=== PATIENT | male | born 1960 | race Caucasian/White ===

== ENCOUNTER → 2020-03-28 13:33 | Outpatient (BNVA) | payer MEDICARE, MEDICAID, SELFPAY | PROVIDERS: PCP Nurse Practitioner Family; Visit Provider Internal Medicine | DX: I35.9 Nonrheumatic aortic valve disorder, unspecified (principal); I10 Essential (primary) hypertension; R00.2 Palpitations | CPT/HCPCS: 93005; 99202 ==

== ENCOUNTER 2020-04-04 12:45 | Outpatient (REF) | payer MEDICARE, MEDICAID, SELFPAY ==
--- NOTE | 2020-04-04 | US_ITS ---
EXAMINATION: US THYROID CLINICAL INFORMATION: Thyroid nodule. COMPARISON: Ultrasound soft tissue head/neck thyroid dated 02/22/2019. TECHNIQUE: Linear transducer riojas-scale and color Doppler examination with attention to the region of the thyroid. FINDINGS: SIZE: Measurements of the thyroid lobes and nodules are given in sagittal, anteroposterior and transverse dimensions respectively. Right Thyroid Lobe: 5.2 x 2.2 x 2.7 cm, volume 16.1 mL. Previously 5.0 x 2.9 x 2.7 cm, volume 20.5 mL. Parenchyma: The gland echotexture is homogeneous. Thyroid vascularity is normal. Left Thyroid Lobe: 4.5 x 2.4 x 1.7 cm, volume 9.4 mL. Previously 4.9 x 2.1 x 1.6 cm, volume 8.6 mL. Parenchyma: The gland echotexture is homogeneous. Thyroid vascularity is normal. Isthmus: 0.6 cm in maximum AP dimension. Previously 0.4 cm. RIGHT THYROID LOBE: No nodules. ISTHMUS: No nodules. LEFT THYROID LOBE: There is 1 nodule seen. 1. Location: Midpole. Size: 0.3 x 0.3 x 0.3 cm. Previous: 0.2 x 0.2 x 0.2 cm. Nodule characteristics: Hypoechoic with smooth margins and intranodular Doppler flow. NODES: No lymphadenopathy is seen in the tissue surrounding the thyroid gland. 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 No new nodules.
== END 2020-04-04 12:46 | disposition home or self-care (01) ==
LOC: HO.HMGCX 12:45
PROVIDERS: Visit Provider Internal Medicine
DX: E04.1 Nontoxic single thyroid nodule (principal)
CPT/HCPCS: 76536

== ENCOUNTER → 2020-04-23 08:01 | Outpatient (REF) | payer MEDICARE, MEDICAID, SELFPAY ==
--- NOTE | 2020-04-23 08:04 | CA_ITS ---
Transthoracic Echocardiogram Patient (Last, First, Middle): Jessica Amin, Gender: Male Date of : 1960 Age: 59 Procedure Date: 04/23/2020 Procedure Type: Transthoracic Echocardiogram Location: OP Height: 172.72 cm Weight: 83.01 kg BSA: 1.97 m2 Heart Rate: bpm BP: 110 / 60 mmHg Gate Cutter: DEANDRE Referring MD: Federico Bowles MD Symptoms: I35.9 - Nonrheumatic aortic valve disorder, unspecified Study Quality: Fair ECG Rhythm: Sinus Conclusions: - The left ventricular systolic function is normal. The visually estimated ejection fraction is between 60-65%. - There is mild calcification of the aortic valve. - There is mild mitral annular calcification. Findings Left Ventricle Normal left ventricular cavity size. There is normal left ventricular wall thickness. The left ventricular systolic function is normal. The visually estimated ejection fraction is between 60-65%. There is no evidence of regional wall motion abnormalities. Diastolic function is normal for age. Right Ventricle Normal right ventricular cavity size and systolic function. Atria The left atrium is normal in size. The right atrium is normal in size. Aortic Valve There is a normal trileaflet aortic valve. There is mild calcification of the aortic valve. There is no aortic valve stenosis. The mean gradient is 7 mmHg. There is trace (trivial) aortic valve regurgitation. Mitral Valve There is mild mitral annular calcification. There is trace mitral valve regurgitation. There is no mitral valve stenosis. Pulmonic Valve The pulmonic valve was not well visualized. Tricuspid Valve Normal tricuspid valve structure. There is trace tricuspid valve regurgitation. The pulmonary artery systolic pressure is normal. Great Vessels The aortic annulus, sinuses of valsalva, and asc aorta are normal in size. Venous The inferior vena cava is normal in size and collapses greater than 50% with inspiration. Pericardium/Pleural There is no evidence of pericardial effusion. Prior Study Comparison No significant change compared to prior study dated: 10/06/2017. Measurements 2D Linear Measurements IVSd: 0.99 0.6-0.9/0.6-1.0 cm LVIDd: 4.26 3.9-5.3/4.2-5.9 cm LVIDd Index: 2.16 2.4-3.2/2.2-3.1 cm/m2 LVIDs: 2.47 2.0-3.6 cm LVPWd: 0.93 0.7-1.1 cm Ao Root: 3.70 2.1-3.5 cm LA Diam: 2.80 2.7-3.8/3.0-4.0 cm LAIDs Index: 1.42 1.5-2.3 cm/m2 LV Mass: 164.47 67-162/88-224 g LV Mass Index: 83.49 43-95/49-115 g/m2 LVOT Diam: 2.10 3.0+(-)1.3 cm 2D Systolic Function EF 4C: 59.70 >55% EF 2C: 67.10 >55% EF BiP: 63.40 >55% Mitral Valve MV Pk E: 0.91 MV PK A: 1.13 MV Decel Time: 195.00 E/A: 0.80 E'Lateral: 11.70 E'Medial: 7.18 E/E' Med: 12.60 E/E' Lat: 7.70 PHT: 57.00 MVA PHT: 3.86 Decel Mercer: 4.65 Aortic Valve AoV Pk Armando: 1.85 AoV Mn Armando: 1.25 AoV VTI: 0.35 AoV Pk Grad: 14.00 Aov Mn Grad: 7.00 TEJ Cont.VTI: 1.94 LVOT LVOT Pk Armando: 1.05 LVOT Mn Armando: 0.68 LVOT VTI: 0.20 LVOT Pk Grad: 4.00 LVOT Mn Grad: 2.00 LVOT Diam: 2.10 LVOT Area: 3.46 Diastolic Function MV Pk E: 0.91 MV Pk A: 1.13 E/A: 0.80 E'Medial: 7.18 E/E' Med: 12.60 E' Laterial: 11.70 E/E' Lat: 7.70 Tricuspid Valve TR Pk Armando: 2.28 TR Pk Grad: 21.00 RA Press: 3.00 RVSP: 24.00 Great Vessels Aorta Ao Root-2D: 3.70 2.0-3.7 cm Ao Asc: 3.00 2.1-3.4 cm Ao Arch: 2.60 Updated in Other Vendor System with Status of Final Federico Bowles MD electronically signed on 04/23/2020 12:08:52 PM with status of Final
--- NOTE | 2020-04-23 08:04 | ECG_ITS ---
Hook-up date: 2020-04-23 09:19:00 Duration: 28:23:00 Test Indications: PALPITATIONS Medications: [id number] QRS complexes 85 Ventricular ectopics which represent <1 % of total QRS comp. 2 Supraventricular ectopics which represent <1 % of total QRS comp. * Paced QRS complexs which represent % of total QRS comp. VENTRICULAR ECTOPY 85 Isolated 0 Bigeminal Cycles 0 Couplets 0 Runs 0 Beats in Runs * Beats LONGEST at * BPM at :: -- * Beats FASTEST at * BPM at :: -- SUPRAVENTRICULAR ECTOPY 2 Isolated 0 Couplets 0 Runs 0 Beats in Runs * Beats LONGEST at * BPM at :: -- * Beats FASTEST at * BPM at :: -- HEART RATES 56 MIN at 15:23:31 2020-04-23 78 AVG 118 MAX at 08:41:13 2020-04-24 LONGEST RR 1.1680 secs at 05:34:03 2020-04-24 S-T LEVELS Channel 1 - 128 mm at 09:19:00 2020-04-23 - 128 mm at 09:19:00 2020-04-23 Channel 2 - 128 mm at 09:19:00 2020-04-23 - 128 mm at 09:19:00 2020-04-23 Channel 3 - 128 mm at 02:83:81 -- - 128 mm at 02:83:81 Basic rhythm Normal sinus rhythm No long pause or profound bradycardia Rare Premature ventricular complexes Patient did not report any symptoms in the diary Referred By: Federico Bowles Overread By: LUIGI CAT MD
== END ==
LOC: HO.CARD 08:01
PROVIDERS: Visit Provider Internal Medicine
DX: R00.2 Palpitations (principal); I35.9 Nonrheumatic aortic valve disorder, unspecified
CPT/HCPCS: 93225; 93226; 93306

== ENCOUNTER → 2020-05-06 13:26 | Outpatient (BNVA) | payer MEDICARE, MEDICAID, SELFPAY | PROVIDERS: Visit Provider Internal Medicine | DX: E04.2 Nontoxic multinodular goiter (principal); E55.9 Vitamin D deficiency, unspecified | CPT/HCPCS: 99212 ==

== ENCOUNTER → 2020-05-21 08:25 | Outpatient (BNVA) | payer MEDICARE, MEDICAID, SELFPAY | PROVIDERS: Visit Provider Internal Medicine | DX: I35.9 Nonrheumatic aortic valve disorder, unspecified (principal); I10 Essential (primary) hypertension; R00.2 Palpitations | CPT/HCPCS: 99212 ==

== ENCOUNTER → 2020-06-13 13:18 | Outpatient (BNVA) | payer MEDICARE, MEDICAID, SELFPAY | PROVIDERS: PCP Internal Medicine; Visit Provider Urology | DX: Z13.89 Encounter for screening for other disorder (principal) | CPT/HCPCS: 99212 ==

== ENCOUNTER 2020-10-15 12:45 | Outpatient (REF) | payer MEDICARE, MEDICAID, SELFPAY ==
--- NOTE | ~2020-10-15 | MR_ITS ---
EXAMINATION: MR KNEE WITHOUT CONTRAST, RIGHT CLINICAL INFORMATION: Chronic right knee pain for 12 years, worsening. Patient reports pain while weightbearing 3 months. COMPARISON: XR right knee 06/13/2019. TECHNIQUE: MRI of the knee without contrast was performed using routine sequences on a high-field scanner. The images are somewhat grainy in the etiology of this is uncertain. Per technologist notes, the coil connections were checked and the exam was restarted. FINDINGS: MENISCI: Medial Meniscus: Intact. Lateral Meniscus: Intact. LIGAMENTS: Cruciate: Intact. Collateral: Intact. EXTENSOR MECHANISM: Intact. ARTICULAR CARTILAGE/BONE: Patellofemoral Compartment: There is a focal area of partial thickness cartilage fissuring in the medial facet of the patella. The femoral trochlear cartilage appears intact. Medial Compartment: There is some patchy mild cartilage surface irregularity and thinning in the weightbearing medial compartment. Lateral Compartment: There is mild cartilage irregularity and thinning in the [id number] aspect of the lateral femoral condyle and in the posterior aspect of the lateral tibial plateau. JOINT FLUID AND BURSAE: Trace joint effusion with thin suprapatellar plica. No Camarillo's cyst. MR/MR knee RT wo con IMPRESSION: 1. Small focal area of mild arthrosis in the medial facet of the patella. 2. Mild arthrosis in the weightbearing medial and lateral compartments. 3. Trace joint effusion. 4. Intact menisci and ligaments.
== END 2020-10-15 12:46 | disposition home or self-care (01) ==
LOC: HO.MRI 12:45
PROVIDERS: Visit Provider Nurse Practitioner Family
DX: M25.561 Pain in right knee (principal); G89.29 Other chronic pain
CPT/HCPCS: 73721

== ENCOUNTER → 2020-11-26 13:35 | Outpatient (BNVA) | payer MEDICARE, MEDICAID, SELFPAY | PROVIDERS: PCP Internal Medicine; Referring Provider Nurse Practitioner; Visit Provider Nurse Practitioner Family | DX: R06.02 Shortness of breath (principal); R00.2 Palpitations; I10 Essential (primary) hypertension | CPT/HCPCS: 93005; 99212 ==

== ENCOUNTER 2020-11-27 07:31 | Outpatient (REF) | payer MEDICARE, MEDICAID, SELFPAY ==
--- NOTE | ~2020-11-27 | XR_ITS ---
EXAMINATION: KNEE X-RAY CLINICAL INFORMATION: Pain COMPARISON: Previous right knee x-ray May 2019 TECHNIQUE: Standing AP view of both knees and lateral and sunrise view of the right knee FINDINGS: Right: Bone alignment is normal. No fracture or dislocation is seen. Medial femoral tibial joint space narrowing. Joint spaces are otherwise normal. There is no joint effusion. Standing AP view of the left knee is unremarkable. XR/XR knee standing BI IMPRESSION: Right knee: Medial femoral tibial joint space narrowing.
--- NOTE | ~2020-11-27 | XR_ITS ---
EXAMINATION: KNEE X-RAY CLINICAL INFORMATION: Pain COMPARISON: Previous right knee x-ray May 2019 TECHNIQUE: Standing AP view of both knees and lateral and sunrise view of the right knee FINDINGS: Right: Bone alignment is normal. No fracture or dislocation is seen. Medial femoral tibial joint space narrowing. Joint spaces are otherwise normal. There is no joint effusion. Standing AP view of the left knee is unremarkable. XR/XR knee RT 2V IMPRESSION: Right knee: Medial femoral tibial joint space narrowing.
== END 2020-11-27 07:32 | disposition home or self-care (01) ==
LOC: HO.HOSX 07:31
PROVIDERS: PCP Nurse Practitioner; Visit Provider Physician Assistant
DX: M17.11 Unilateral primary osteoarthritis, right knee (principal); M25.562 Pain in left knee
CPT/HCPCS: 73560; 73565; 99202

== ENCOUNTER → 2020-12-05 08:22 | Outpatient (REF) | payer MEDICARE, MEDICAID, SELFPAY ==
--- NOTE | ~2020-12-05 | NM_ITS ---
EXERCISE MYOCARDIAL PERFUSION STUDY INDICATION: Shortness of breath, assess for coronary disease and ischemia TECHNIQUE: The patient was brought in for an exercise perfusion study on 12/05/2020. Patient performed exercise as per Ze protocol and was injected 30 mCi of sestamibi once target heart rate was achieved. Images were obtained using the SPECT gamma camera interlaced with the gating device. Images were obtained in supine position. Resting perfusion study was performed on 12/16/2020. Patient was administered 30 mCi of sestamibi intravenously at rest. Images were then obtained in supine position. Total DLP 98mGy-cm. Images were processed with the software and compared side to side in short axis, horizontal long axis and vertical long axis views. FINDINGS: Raw images were reviewed. The stress perfusion study showed mildly diminished tracer uptake in the basal inferior wall. There is improvement with CT attenuation correction and hence this could be from diaphragmatic attenuation artifact. There is also diminished uptake in the distal septum and adjacent apex that improves with CT attenuation correction. The gated study shows normal LV systolic function with calculated LVEF of 72%. LV cavity is normal in size. The gated study shows normal wall thickening and contraction of segments. Resting study shows no significant perfusion abnormality. Gating at rest reveals normal wall motion with ejection fraction at 62%. The findings are consistent with mild reversible basal inferior and distal septal defect most likely artifactual. NM/NM cardiolite stress test IMPRESSION: 1. Myocardial perfusion imaging study shows no definitive evidence of any ischemia or infarction. Likely normal perfusion. 2. Gated LVEF is 71% during stress and 62% during rest. 3. Transient ischemic dilatation not present. EKG component of the test reported separately.
--- NOTE | 2020-12-05 09:15 | CA_ITS ---
Acquisition Time: 2020-12-05 08:41:52 Total Exercise Time: 00:08:45 Test Indications: Dyspnea Medications: ASA ATORVASTATIN LISINOPRIL/HCTZ GABAPENTIN HYDROXIZINE OMEPRAZOLE METFORMIN Protocol: YUMIKO Max HR: 141 BPM 87% of Pred: 161 BPM Max BP: 140/080 mmHG Max Work Load: 10.1 METS Exercise stress test with exercise 8 min 45 sec of Yumiko protocol, with moderate shortness of breath, no chest discomfort, with isolated PVC, with normotensive response to exercise, without EKG changes meeting criteria for ischemia. Nuclear images pending. Test reviewed with Dr Bowles. Referred By: Patsy Elizabeth Overread By: PATSY ELIZABETH
== END ==
LOC: HO.CARD 08:22
PROVIDERS: Visit Provider Nurse Practitioner Family
DX: R06.02 Shortness of breath (principal)
CPT/HCPCS: 78452; 93017; A9500

== ENCOUNTER 2020-12-20 14:00 | Outpatient (RCR) | payer MEDICARE, MEDICAID, SELFPAY ==
[2020-12-05 15:23] VITALS: BP 140/90; PULSE 88; RESP 28
== END 2021-01-03 15:58 | disposition home or self-care (01) ==
LOC: HO.PTCHIC 14:00
PROVIDERS: PCP Nurse Practitioner; Visit Provider Nurse Practitioner Primary Care
DX: M25.561 Pain in right knee (principal)
CPT/HCPCS: 97110; 97150; 97161

== ENCOUNTER → 2020-12-31 12:59 | Outpatient (BNVA) | payer MEDICARE, MEDICAID, SELFPAY | PROVIDERS: PCP Nurse Practitioner; Referring Provider Nurse Practitioner; Visit Provider Nurse Practitioner Family | DX: R06.02 Shortness of breath (principal); R00.2 Palpitations; R53.83 Other fatigue; I10 Essential (primary) hypertension; I35.9 Nonrheumatic aortic valve disorder, unspecified; E11.9 Type 2 diabetes mellitus without complications; E78.5 Hyperlipidemia, unspecified; E04.2 Nontoxic multinodular goiter; Z88.6 Allergy status to analgesic agent; Z79.84 Long term (current) use of oral hypoglycemic drugs; Z79.899 Other long term (current) drug therapy | CPT/HCPCS: 99212 ==

== ENCOUNTER 2021-03-26 14:35 | Outpatient (REF) | payer MEDICARE, MEDICAID, SELFPAY | END 2021-03-26 14:36 | disposition home or self-care (01) | LOC: HO.HMGCLDS 14:35 | PROVIDERS: Visit Provider Internal Medicine | DX: Z20.822 Contact with and (suspected) exposure to COVID-19 (principal) | CPT/HCPCS: C9803; U0003; U0005 ==

== ENCOUNTER 2021-05-01 12:37 | Outpatient (REF) | payer MEDICARE, MEDICAID, SELFPAY ==
--- NOTE | ~2021-05-01 | US_ITS ---
EXAMINATION: US THYROID CLINICAL INFORMATION: Nontoxic multinodular goiter. COMPARISON: Ultrasound thyroid 04/04/2020 and 02/22/2019.. TECHNIQUE: Linear transducer grayscale and color Doppler examination with attention to the region of the thyroid. FINDINGS: SIZE: Measurements of the thyroid lobes and nodules are given in sagittal, anteroposterior and transverse dimensions respectively. Right Thyroid Lobe: 5.12 x 2.74 x 1.98 cm, volume 14.5 mL. Previously 5.2 x 2.2 x 2.7 cm, volume 16.1 mL. Parenchyma: The gland echotexture is homogeneous. Thyroid vascularity is normal. Left Thyroid Lobe: 4.69 x 3.01 x 1.48 cm, volume 10.9 mL. Previously 4.5 x 2.4 and 1.7 cm, volume 9.4 mL. Parenchyma: The gland echotexture is homogeneous. Thyroid vascularity is normal. Isthmus: 0.59 cm in maximum AP dimension. Previously 0.60 cm. Estimated total number of nodules greater than or equal to 1 cm: 0. Scenario Writer nodules are described as follows: 1. Location: Right mid. Size: 0.62 x 0.39 x 0.53 cm, volume 0.06 mL. Previously: Not seen on the previous study. Nodule characteristics: Composition: Mixed cystic and solid (1). Echogenicity: Isoechoic (1). Shape: Not taller than wide (0). Margins: Smooth (0). Echogenic Foci: None (0). ACR TI-RADS total points: 2 ACR TI-RADS category: 2 2. Location: Left mid. Size: 0.24-0 0.23 x 0.25 cm, volume 0.008 mL. Previously: 0.30 x 0.30 x 0.30 cm, volume 0.015 mL. Nodule characteristics: Composition: Cystic(0). ACR TI-RADS total points: 0 ACR TI-RADS category: 1 Significant change in size (>/= 20% in 2 dimensions and minimal increase of 2 mm or 50% or greater increase in volume): No NODES: No lymphadenopathy is seen in the tissue surrounding the thyroid gland. US/US thyroid IMPRESSION: Again demonstrated is an enlarged thyroid gland. 6 mm right TR 2 nodule and left 3 mm cystic TR 1 nodule require no follow-up imaging per ACR recommendations. ACR TI-RADS RECOMMENDATION REFERENCE: Ultrasound-guided fine-needle aspiration, followup ultrasound, no further follow up. * TR1 (0 point) and TR 2 (2 points): No FNA or follow up
== END 2021-05-01 12:38 | disposition home or self-care (01) ==
LOC: HO.HMGCX 12:37
PROVIDERS: Visit Provider Internal Medicine
DX: E04.2 Nontoxic multinodular goiter (principal)
CPT/HCPCS: 76536

== ENCOUNTER 2021-05-05 10:32 | Outpatient (REF) | payer MEDICARE, MEDICAID, SELFPAY ==
[2021-05-05 12:01] LABS: Free T4 (Free Thyroxine) 0.99 ng/dL (0.71-1.85); Thyroid Stimulating Hormone 1.76 uIU/mL (0.32-4.0); Vitamin D 25-OH Total 21.1 ng/mL (>30)
== END 2021-05-05 10:33 | disposition home or self-care (01) ==
LOC: HO.LAB 10:32
PROVIDERS: PCP Nurse Practitioner; Visit Provider Internal Medicine
DX: E04.2 Nontoxic multinodular goiter (principal); E55.9 Vitamin D deficiency, unspecified
CPT/HCPCS: 36415; 82306; 84439; 84443; 99212

== ENCOUNTER → 2021-06-17 13:40 | Outpatient (BNVA) | payer MEDICARE, MEDICAID, SELFPAY | PROVIDERS: PCP Nurse Practitioner; Visit Provider Urology | DX: E11.69 Type 2 diabetes mellitus with other specified complication (principal); N52.1 Erectile dysfunction due to diseases classified elsewhere | CPT/HCPCS: 99212 ==

== ENCOUNTER → 2021-12-18 13:41 | Outpatient (REF) | payer MEDICARE, MEDICAID, SELFPAY ==
--- NOTE | 2021-12-18 13:45 | CA_ITS ---
Transthoracic Echocardiogram Patient (Last, First, Middle): Jessica Amin, Gender: Male Date of : 1960 Age: 61 Procedure Date: 12/18/2021 Procedure Type: Transthoracic Echocardiogram Location: OP Height: 172.72 cm Weight: 84.37 kg BSA: 1.98 m2 Heart Rate: 73 bpm BP: 115 / 80 mmHg Drawing Kiln Operator: AARON Referring MD: Patsy Elizabeth PAINTER AND PAPERHANGER APPRENTICEMariluC Symptoms: I35.9 - Nonrheumatic aortic valve disorder, unspecified Study Quality: Fair ECG Rhythm: Sinus Conclusions: - The left ventricular systolic function is normal. The visually estimated ejection fraction is between 55-60%. - There is mildly decreased right ventricular systolic function. - There is mild aortic valve stenosis. Cannot exclude bicuspid morphology. Findings Left Ventricle Normal left ventricular cavity size. There is normal left ventricular wall thickness. The left ventricular systolic function is normal. The visually estimated ejection fraction is between 55-60%. There is no evidence of regional wall motion abnormalities. There is mild septal asymmetric hypertrophy. Right Ventricle Normal right ventricular cavity size. There is mildly decreased right ventricular systolic function. Atria Both atria are normal in size. Aortic Valve There is mild calcification of the aortic valve. There is mild aortic valve stenosis. There is no aortic valve regurgitation. Cannot exclude bicuspid morphology. Mitral Valve The mitral valve appears normal. There is no mitral valve regurgitation. There is no mitral valve stenosis. Pulmonic Valve The pulmonic valve is likely normal. Tricuspid Valve There is trace tricuspid valve regurgitation. There is no evidence of pulmonary hypertension. Great Vessels The aortic annulus, sinuses of valsalva, and asc aorta are normal in size. Venous The inferior vena cava is normal in size and collapses greater than 50% with inspiration. Pericardium/Pleural There is no evidence of pericardial effusion. Prior Study Comparison Changes noted compared to prior study dated: 04/23/2020. See comments on the aortic valve and right ventricle. Measurements 2D Linear Measurements IVSd: 1.23 0.6-0.9/0.6-1.0 cm LVIDd: 3.93 3.9-5.3/4.2-5.9 cm LVIDd Index: 1.98 2.4-3.2/2.2-3.1 cm/m2 LVIDs: 1.90 2.0-3.6 cm LVPWd: 0.96 0.7-1.1 cm LA Diam: 3.30 2.7-3.8/3.0-4.0 cm LAIDs Index: 1.67 1.5-2.3 cm/m2 LV Mass: 175.61 67-162/88-224 g LV Mass Index: 88.69 43-95/49-115 g/m2 LVOT Diam: 2.00 3.0+(-)1.3 cm 2D Systolic Function EF 4C: 57.80 >55% EF 2C: 49.20 >55% EF BiP: 51.60 >55% Mitral Valve MV Pk E: 0.59 MV PK A: 0.90 MV Decel Time: 181.00 E/A: 0.70 E'Lateral: 7.29 E'Medial: 4.90 E/E' Med: 12.00 E/E' Lat: 8.10 PHT: 53.00 MVA PHT: 4.15 Decel Platte: 3.24 Aortic Valve AoV Pk Armando: 1.82 AoV Mn Armando: 1.46 AoV VTI: 0.37 AoV Pk Grad: 13.00 Aov Mn Grad: 10.00 TEJ Cont.VTI: 1.60 LVOT LVOT Pk Armando: 0.96 LVOT Mn Armando: 0.69 LVOT VTI: 0.19 LVOT Pk Grad: 4.00 LVOT Mn Grad: 2.00 LVOT Diam: 2.00 LVOT Area: 3.14 Diastolic Function MV Pk E: 0.59 MV Pk A: 0.90 E/A: 0.70 E'Medial: 4.90 E/E' Med: 12.00 E' Laterial: 7.29 E/E' Lat: 8.10 Right Ventricle TAPSE (mm): 13.90 TVS' Armando: 6.20 Tricuspid Valve RA Press: 3.00 Great Vessels Aorta Sinus of Valsalva: 3.60 2.0-3.5 cm Ao Asc: 3.00 2.1-3.4 cm Pulmonary Valve PV Pk Armando: 0.77 Peak PV Grad: 2.00 Updated in Other Vendor System with Status of Final Federico Bowles MD electronically signed on 12/19/2021 9:51:14 AM with status of Final
== END ==
LOC: HO.CARD 13:41
PROVIDERS: PCP Nurse Practitioner; Visit Provider Nurse Practitioner Family
DX: I35.9 Nonrheumatic aortic valve disorder, unspecified (principal)
CPT/HCPCS: 93306

== ENCOUNTER → 2021-12-25 14:18 | Outpatient (BNVA) | payer MEDICARE, MEDICAID, SELFPAY | PROVIDERS: PCP Nurse Practitioner; Referring Provider Nurse Practitioner; Visit Provider Nurse Practitioner Family | DX: I35.0 Nonrheumatic aortic (valve) stenosis (principal); R06.02 Shortness of breath; R00.2 Palpitations; I10 Essential (primary) hypertension | CPT/HCPCS: 93005; 99212 ==

== ENCOUNTER 2022-04-15 13:05 | Outpatient (REF) | payer MEDICARE, MEDICAID, SELFPAY ==
--- NOTE | ~2022-04-15 | US_ITS ---
EXAMINATION: US THYROID CLINICAL INFORMATION: Nontoxic multinodular goiter. COMPARISON: Ultrasound thyroid 05/01/2021 and 04/04/2020. TECHNIQUE: Linear transducer grayscale and color Doppler examination with attention to the region of the thyroid. FINDINGS: SIZE: Measurements of the thyroid lobes and nodules are given in sagittal, anteroposterior and transverse dimensions respectively. Right Thyroid Lobe: 5.2 x 2.5 x 2.9 cm, volume 19.7 mL. Previously 5.1 x 2.7 x 2.0 cm, volume 14.5 mL. Parenchyma: The gland echotexture is homogeneous. Thyroid vascularity is normal. Left Thyroid Lobe: 4.7 x 1.8 x 1.6 cm, volume 7.1 mL. Previously 4.7 x 3.0 x 1.5 cm, volume 10.9 mL. Parenchyma: The gland echotexture is homogeneous. Thyroid vascularity is normal. Isthmus: 0.47 cm in maximum AP dimension. Previously 0.60 cm. Estimated total number of nodules greater than or equal to 1 cm: 0. [employer] nodules are described as follows: 1. Location: Right mid inferior. Size: 0.66 x 0.37 x 0.57 cm, volume 0.07 mL. Previously: 0.62 x 0.39 x 0.53 cm, volume 0.06 mL. Nodule characteristics: Composition: Spongiform (0). Echogenicity: Anechoic (0). Shape: Not taller than wide (0). Margins: Smooth (0). Echogenic Foci: None (0). ACR TI-RADS total points: 0 Previous: 0 ACR TI-RADS category: 1 Previous: 1 2. Location: Left mid. Size: 0.31 x 0.33 x 0.21 cm, volume 0.01 mL. Previously: 0.24 x 0.23 x 0.25 cm, volume 0.008 mL. Nodule characteristics: Composition: Cystic(0). ACR TI-RADS total points: 0 Previous: 0 ACR TI-RADS category: 1 Previous: 1 NODES: No lymphadenopathy is seen in the tissue surrounding the thyroid gland. US/US thyroid IMPRESSION: Bilateral nodules do not meet ACR criteria for follow-up.. ACR TI-RADS RECOMMENDATION REFERENCE: Ultrasound-guided fine-needle aspiration, followup ultrasound, no further follow up. * TR1 (0 point) and TR 2 (2 points): No FNA or follow up. * TR3 (3 points): FNA if more than or equal to 2.5 cm in maximum dimension, followup ultrasound in 1, 3 and 5 years if 1.5 to 2.4 cm in maximum dimension. * TR4 (4-6 points): FNA if more than or equal to 1.5 cm in maximum dimension, followup ultrasound in 1, 2, 3 and 5 years if 1 to 1.4 cm in maximum dimension. * TR5 (more than or equal to 7 points): FNA if more than or equal to 1 cm in maximum dimension, followup ultrasound every year for 5 years if 0.5 to 0.9 cm in maximum dimension. * TR3, TR4 or TR5 nodules that are below the size threshold for followup receive no follow up.
== END 2022-04-15 13:06 | disposition home or self-care (01) ==
LOC: HO.US 13:05
PROVIDERS: Visit Provider Internal Medicine
DX: Z13.89 Encounter for screening for other disorder (principal)
CPT/HCPCS: 76536

== ENCOUNTER 2022-04-15 22:14 | Emergency (ER) | payer MEDICARE, MEDICAID, SELFPAY ==
--- NOTE | ~2022-04-15 | CT_ITS ---
EXAMINATION: CT ABDOMEN AND PELVIS WITH CONTRAST CLINICAL INFORMATION: Upper abdominal pain. COMPARISON: None TECHNIQUE: Multidetector volumetric images were obtained from the superior aspect of the liver through the pubic symphysis following administration 85 mL of Omnipaque 350 intravenous contrast. Sagittal and coronal reformatted images were obtained on the technologist's workstation. Oral contrast: No This CT examination was performed using dose optimization techniques as appropriate, variously including the following: *Automated exposure control *Adjustment of mA and/or kV according to patient size (this includes techniques or standardized protocols for targeted exams where dose is matched to indication/reason for exam; i.e. extremities or head) *Use of iterative reconstruction technique DLP: 477 mGy-cm FINDINGS: LUNG BASES: The visualized lung bases are unremarkable. LIVER, GALLBLADDER, AND BILIARY TREE: The liver is normal in size, shape, and attenuation. No focal hepatic lesion or biliary ductal dilatation is present. The gallbladder is unremarkable with no evidence of radiopaque gallstones, gallbladder wall thickening, or obvious pericholecystic inflammatory changes. PANCREAS: Unremarkable. SPLEEN: Unremarkable. ADRENAL GLANDS: Unremarkable. KIDNEYS AND URETERS: The kidneys are normal in size, shape, and attenuation. No hydronephrosis, hydroureter, or calculi seen. No perinephric stranding. BLADDER: Unremarkable. GASTROINTESTINAL TRACT: The stomach is unremarkable. Normal caliber small bowel. No obstruction. There is wall thickening of a short segment of small bowel in the central pelvis. Mild adjacent inflammation. Normal appendix. No colonic wall thickening or inflammation. Moderate colonic stool burden. Scattered diverticulosis which is greatest at the sigmoid colon. No free air or free fluid. ABDOMINAL WALL: No significant hernia is appreciated. LYMPH NODES: Normal. VASCULAR: Unremarkable. PELVIC VISCERA: The prostate and seminal vesicles are unremarkable. OSSEOUS STRUCTURES: No acute or suspicious osseous abnormality. Degenerative change at L5-S1 with vacuum disc phenomenon. CT/CT abdomen pelvis w IV con IMPRESSION: Wall thickening of a short segment of small bowel in the central pelvis with mild adjacent inflammation, suggestive of enteritis. Fleischner guidelines were followed.
[2022-04-15 22:17] VITALS: BP 141/92; PULSE 91; RESP 18; TEMP 36.7; O2SAT 94; BMI 25.8
[2022-04-15 22:33] LABS: Basophils Absolute Auto 0.1 X10*3/uL (0.0-0.2); Basophils Percent Auto 0.6 % (0-2); Eosinophils Absolute Auto 2.3 X10*3/uL (0.0-0.4); Eosinophils Percent Auto 26.3 % (0-4); Hematocrit 50.4 % (42.0-52.0); Hemoglobin 17.1 g/dl (14.0-18.0); Imm Gran Abs Auto 0.01 X10*3/uL (0.00-0.03); Imm Gran Pct Auto 0.1 % (0.0-0.4); Lymphocytes Absolute Auto 1.8 X10*3/uL (1.2-4.9); Lymphocytes Percent Auto 20.2 % (20-40); MANUAL DIFF FLAG SCAN; Mean Corpuscular HGB Conc 33.9 g/dl (31.0-36.0); Mean Corpuscular Volume 82.6 fL (80.0-98.0); Mean Platelet Volume 9.2 fL (9.4-12.4); Monocytes Absolute Auto 0.5 X10*3/uL (0.1-1.2); Monocytes Percent Auto 5.6 % (2-11); Neutrophils Absolute Auto 4.1 x10*3/uL (2.0-8.3); Neutrophils Percent Auto 47.2 % (45-73); Platelet Count 218 X10*3/uL (160-400); Red Cell Distribution Width 12.4 % (11.0-16.0); SCAN SMEAR FLAG 1; White Blood Count 8.8 X10*3/uL (4.8-10.8)
[2022-04-15 22:40] LABS: Appearance Urine Clear; Color Urine Yellow; Glucose Urine UA >=1000 mg/dL (Negative); Leukocyte Esterase Urine Negative (Negative); Nitrite Urine Negative (Negative); PH 5.5 (5.0-9.0); Specific Gravity - Urine >= 1.030 (1.005-1.025); UMIC TRIGGER UACC YES; Urine Blood Negative (Negative); Urine Ketones Negative (Negative); Urine Protein Negative (Neg-Trace)
[2022-04-15 22:44] LABS: Bacteria Urine None Seen (None Seen); Hyaline Casts Urine 0-2 /LPF (0-2); RBC Urine 0-2 /HPF (0-2); Squamous Epithelial Cell Urine 0-2 /HPF (0-2); WBC Urine 0-5 /HPF (0-5)
[2022-04-15 22:49] VITALS: BP 123/76; PULSE 82; RESP 16; TEMP 36.8; O2SAT 96
[2022-04-15 22:51] LABS: Alanine Aminotransferase 30 U/L (0-40); Albumin Level 4.4 g/dL (3.5-5.0); Alkaline Phosphatase 125 U/L (39-117); Anion Gap 14 (12-20); Aspartate Amino Transferase 16 U/L (5-37); Bilirubin Direct < 0.2 mg/dL (0.0-0.5); Bilirubin Total 0.4 mg/dL (0.0-1.0); Blood Urea Nitrogen 28 mg/dL (9-16); Calcium 9.4 mg/dL (8.4-10.2); Carbon Dioxide 25 mmol/L (22-29); Chloride 102 mmol/L (96-108); Creatinine Clr Calc Pharmacy 78.3; Estimated Glomerular Filt Rate > 60; Glucose Random 157 mg/dL (60-115); Sodium 137 mmol/L (135-145); Total Protein 7.5 g/dL (6.5-8.0)
[2022-04-15 22:52] LABS: SLIDE REVIEW VERIFIED
--- NOTE | 2022-04-15 22:55 | PC.NURSE ---
Assessment: Pt's V/S are stable, ptspouse is at bedside. Pt has upper abd pain 9/10 x 3 days and it worsen when eating. Pt denies constipation, diarrhea, N/V. ABd is soft and tender, bowel sound throughout the 4 the quadrants.
--- NOTE | 2022-04-15 22:59 | ED_ITS ---
HPI - Abdominal Pain General Chief Complaint: Abdominal Pain Stated Complaint: abdominal pain Time Seen by Provider: 04/15/22 22:58 Source: patient Mode of arrival: ambulatory Limitations: no limitations History of Present Illness HPI narrative: Physical complaining of diffuse abdominal pain for last 1 week today got worse today after meals had normal bowel movement yesterday no nausea or vomiting no fever or chills. No urinary complaints no history of kidney stone Related Data Home Medications Medication Instructions Recorded Confirmed aspirin 81 mg tablet,delayed 81 mg PO DAILY 03/28/20 12/25/21 release (Adult Low Dose Aspirin) cetirizine 10 mg tablet 10 mg PO DAILY 03/28/20 12/25/21 fluoxetine 40 mg capsule 40 mg PO DAILY 03/28/20 12/25/21 hydroxyzine HCl 10 mg tablet 10 mg PO BEDTIME 03/28/20 12/25/21 omeprazole 40 mg capsule,delayed 40 mg PO DAILY 03/28/20 12/25/21 release sumatriptan succinate 50 mg tablet 50 mg PO DAILY PRN 03/28/20 12/25/21 blood sugar diagnostic #10 ea 05/06/20 12/25/21 gabapentin 600 mg tablet 600 mg PO DAILY 05/06/20 12/25/21 metformin 500 mg tablet 500 mg PO BID 05/06/20 12/25/21 clonazepam 1 mg tablet 1 mg PO BEDTIME PRN 06/17/21 12/25/21 empagliflozin 25 mg tablet 25 mg PO QAM 06/17/21 12/25/21 (Jardiance) ipratropium bromide 21 mcg (0.03 intranasal 06/17/21 12/25/21 %) nasal spray lisinopril 10 mg tablet 10 mg PO DAILY 06/17/21 12/25/21 tamsulosin 0.4 mg capsule 0.4 mg PO DAILY 06/17/21 12/25/21 atorvastatin 40 mg tablet 40 mg PO DAILY 12/25/21 12/25/21 Previous Rx's Medication Instructions Recorded sildenafil 100 mg tablet 100 mg PO .PRN PRN sexual activity 06/13/20 30 days #30 tabs cholecalciferol (vitamin D3) 50 50 mcg PO DAILY 30 days #30 caps 05/05/21 mcg (2,000 unit) capsule tadalafil 20 mg tablet 20 mg PO .PRN sexual activity 30 06/17/21 days #30 tabs sucralfate 1 gram tablet 1 g PO TID #90 tabs 04/16/22 Allergies Allergy/AdvReac Type Severity Reaction Status Date / Time codeine [CODEINE] Allergy Unknown TACHYCARDIA Verified 12/25/21 14:59 codeine AdvReac Unknown anaphylaxis Uncoded 05/05/21 11:32 Review of Systems Review of Systems Yes all other systems are reviewed and are negative [facility] Past Medical History Medical History Aortic valve calcification Erectile dysfunction Essential hypertension Multinodular thyroid Other and unspecified hyperlipidemia Type 2 diabetes mellitus with unspecified complications Vitamin D deficiency Family History Family History Father Stroke Brother Stroke Mother Diabetes Social History Social History Smoked in Last 30 Days: No Use of substances other than those prescribed or required for medical reasons: No Advance Directives: No Advance Directives Information Provided: No Physical Exam ED Vital Signs: Vital Signs - 24 hr 04/15/22 22:17 04/15/22 22:49 04/16/22 00:00 Temperature 98.1 F 98.2 F 98.9 F Pulse Rate 91 82 86 Respiratory Rate 18 16 16 Blood Pressure 141/92 H 123/76 136/84 Pulse Oximetry 94 96 98 Oxygen Delivery Method Room Air Room Air Room Air BMI result Body Mass Index 25.8 Appearance: Alert. Oriented X3. No acute distress. Eyes: PERRLA, No Nystagmus ENT: Pharynx normal. Oral Mucosa moist Neck: Normal inspection. Neck supple. CVS: Normal heart rate and rhythm. Pulses normal. Respiratory: No respiratory distress. Equal air entry bilateral, no wheezing/rales/rhonchi Abdomen: Soft and nontender. Bowel sounds are present, no mass palpable, no CVA tenderness Skin: Skin warm and dry. Normal skin color. Normal skin turgor. Extremities: No lower extremity edema. No calf tenderness Neuro: Oriented X 3. No motor deficit. No sensory deficit.No cerebellar signs , cranial nerves II-XII intact Medical Decision Making Lab Data 04/15/22 22:28 04/15/22 22:28 Labs: Lab Results 04/15/22 04/15/22 04/15/22 Range/Units 22:28 22:28 22:33 WBC 8.8 (4.8-10.8) X10*3/uL RBC 6.10 H (4.60-5.80) X10*6/uL Hgb 17.1 (14.0-18.0) g/dl Hct 50.4 (42.0-52.0) % MCV 82.6 (80.0-98.0) fL MCH 28.0 (27.0-33.0) pg MCHC 33.9 (31.0-36.0) g/dl RDW 12.4 (11.0-16.0) % Plt Count 218 (160-400) X10*3/uL MPV 9.2 L (9.4-12.4) fL Immature Gran % (Auto) 0.1 (0.0-0.4) % Neut % (Auto) 47.2 (45-73) % Lymph % (Auto) 20.2 (20-40) % [place] % (Auto) 5.6 (2-11) % Eos % (Auto) 26.3 H (0-4) % Baso % (Auto) 0.6 (0-2) % Lymph # (Auto) 1.8 (1.2-4.9) X10*3/uL [place] # (Auto) 0.5 (0.1-1.2) X10*3/uL Eos # (Auto) 2.3 H (0.0-0.4) X10*3/uL Baso # (Auto) 0.1 (0.0-0.2) X10*3/uL Abs Immat Gran (auto) 0.01 (0.00-0.03) X10*3/uL Absolute Neuts (auto) 4.1 (2.0-8.3) x10*3/uL Absolute Nucleated RBC 0.000 (0.0-0.012) X10*3/uL Nucleated RBC % (auto) 0.0 (0.0-0.2) /100WBC Smear Tech's Comments VERIFIED Sodium 137 (135-145) mmol/L Potassium 4.0 (3.3-5.1) mmol/L Chloride 102 (96-108) mmol/L Carbon Dioxide 25 (22-29) mmol/L Anion Gap 14 (12-20) BUN 28 H (9-16) mg/dL Creatinine 0.97 (0.5-1.4) mg/dL Estim Creat Clear Calc 78.3 Estimated GFR > 60 Random Glucose 157 H (60-115) mg/dL Calcium 9.4 (8.4-10.2) mg/dL Total Bilirubin 0.4 (0.0-1.0) mg/dL Direct Bilirubin < 0.2 (0.0-0.5) mg/dL AST 16 (5-37) U/L ALT 30 (0-40) U/L Alkaline Phosphatase 125 H (39-117) U/L Total Protein 7.5 (6.5-8.0) g/dL Albumin 4.4 (3.5-5.0) g/dL Lipase 37 (8-78) U/L Urine Color Yellow Urine Appearance Clear Urine pH 5.5 (5.0-9.0) Ur Specific [place] >= 1.030 H (1.005-1.025) Urine Protein Negative (Neg-Trace) mg/dL Urine Glucose (UA) >=1000 H (Negative) mg/dL Urine Ketones Negative (Negative) mg/dL Urine Blood Negative (Negative) Urine Nitrite Negative (Negative) Ur Leukocyte Esterase Negative (Negative) Urine RBC 0-2 (0-2) /HPF Urine WBC 0-5 (0-5) /HPF Ur Squamous Epith Cells 0-2 (0-2) /HPF Urine Bacteria None Seen (None Seen) Hyaline Casts 0-2 (0-2) /LPF Medications Administered Discontinued Medications Generic Name Dose Route Start Last Admin Trade Name Freq PRN Reason Stop Dose Admin Famotidine 20 mg 04/15/22 23:04 04/15/22 23:14 Famotidine/Pf 20 Mg/2 Ml Vial IVPUSH 04/15/22 23:05 20 mg ONCE ONE Administration Iohexol 85 ml 04/16/22 00:17 04/16/22 00:18 Iohexol 350 Mg/Ml 100 Ml Infus..Btl IV 04/16/22 00:18 85 ml ONCE ONE Administration Discharge Plan Discharge Clinical Impression: Enteritis, Gastritis Patient Disposition: Home, Self-Care Instructions: Gastritis (ED), Enteritis (ED) Additional Instructions: Drink plenty of fluids Medication as prescribed Avoid fried food Follow-up with PCP/diagnostic assistant Continue Prilosec daily Sucralfate 1 tablet 3 times a day before meals Prescriptions: New sucralfate 1 gram tablet 1 g PO TID Qty: 90 0RF No Action cholecalciferol (vitamin D3) 50 mcg (2,000 unit) capsule 50 mcg PO DAILY 30 Days Qty: 30 11RF sildenafil 100 mg tablet 100 mg PO .PRN PRN (Reason: sexual activity) 30 Days Qty: 30 1RF Rx Instructions: administer 60 minutes before intended activity cetirizine 10 mg tablet 10 mg PO DAILY omeprazole 40 mg capsule,delayed release(DR/EC) 40 mg PO DAILY fluoxetine 40 mg capsule 40 mg PO DAILY hydroxyzine HCl 10 mg tablet 10 mg PO BEDTIME sumatriptan succinate 50 mg tablet 50 mg PO DAILY PRN aspirin [Adult Low Dose Aspirin] 81 mg tablet,delayed release (DR/EC) 81 mg PO DAILY gabapentin 600 mg tablet 600 mg PO DAILY metformin 500 mg tablet 500 mg PO BID clonazepam 1 mg tablet 1 mg PO BEDTIME PRN ipratropium bromide 21 mcg (0.03 %) spray,non-aerosol intranasal Jardiance 25 mg tablet 25 mg PO QAM tamsulosin 0.4 mg capsule 0.4 mg PO DAILY lisinopril 10 mg tablet 10 mg PO DAILY tadalafil 20 mg tablet 20 mg PO .PRN 30 Days Qty: 30 1RF (DME) FreeStyle Lite Strips Strip See Rx Instructions Not Applicable DAILY Qty: 10 Rx Instructions: As directed atorvastatin 40 mg tablet 40 mg PO DAILY Referrals: Veronica Rodriguez MD [Physician] - 2 weeks Interventions: ED Discharge Assessment Last Done: 04/16/22 01:22 Discharge Date/Time: 04/16/22 01:23
[2022-04-15] MEDS: Famotidine/PF 20 MG/2 ML VIAL IVPUSH (23:14)
[2022-04-15 23:23] LABS: Lipase 37 U/L (8-78)
[2022-04-16] VITALS: BP 136/84; PULSE 86; RESP 16; TEMP 37.2; O2SAT 98
[2022-04-16] MEDS: iohexoL 350 MG/ML 100 ML INFUS..BTL 85 ML IV (00:18)
== END 2022-04-16 01:23 | disposition home or self-care (01) ==
PROVIDERS: Emergency Provider Internal Medicine; PCP Nurse Practitioner
DX: K52.9 Noninfective gastroenteritis and colitis, unspecified (principal); K29.70 Gastritis, unspecified, without bleeding; E11.9 Type 2 diabetes mellitus without complications; I10 Essential (primary) hypertension; E78.5 Hyperlipidemia, unspecified; Z79.82 Long term (current) use of aspirin; Z79.84 Long term (current) use of oral hypoglycemic drugs; Z79.899 Other long term (current) drug therapy; Z79.02 Long term (current) use of antithrombotics/antiplatelets
CPT/HCPCS: 36415; 74177; 76536; 80053; 81001; 82248; 83690; 85025; 96374; 99284; Q9967

== ENCOUNTER 2022-04-16 21:18 | Emergency (ER) | payer MEDICARE, MEDICAID, SELFPAY ==
[2022-04-16 21:19] VITALS: BP 138/91; PULSE 81; RESP 18; TEMP 36.1; O2SAT 96; BMI 26.3
--- NOTE | 2022-04-16 21:56 | ECG_ITS ---
Test Reason : ABDOMINAL PAIN Blood Pressure : / mmHG Vent. Rate : 071 BPM Atrial Rate : 071 BPM P-R Int : 174 ms QRS Dur : 088 ms QT Int : 360 ms P-R-T Axes : 018 -21 009 degrees QTc Int : 391 ms Normal sinus rhythm Normal ECG When compared with ECG of 13-JUN-2019 17:40, No significant change was found Referred By: Manny Raza Electronically Signed By:LUIGI CAT MD
--- NOTE | 2022-04-16 22:02 | ED.GENADULT ---
HPI - General Adult General Chief complaint: Abdominal Pain Stated complaint: Abdominal Pain Time Seen by Provider: 04/16/22 21:51 Source: patient Limitations: no limitations History of Present Illness HPI narrative: this is a 61-year-old male who complains of pain in his mid abdomen for a few days. The patient was seen last night here for the same issue and had a CT scan and labs, states they did not find anything. The patient was prescribed sucralfate but states that it does not help the pain. Patient notes he does have a ventral hernia. The patient denies any chest pain or shortness of breath. He denies nausea or vomiting. He denies constipation or diarrhea. Denies any back pain. He denies any dysuria or urinary frequency. He does have history of hypertension, diabetes, hypercholesterolemia. Related Data Home Medications Medication Instructions Recorded Confirmed aspirin 81 mg tablet,delayed 81 mg PO DAILY 03/28/20 12/25/21 release (Adult Low Dose Aspirin) cetirizine 10 mg tablet 10 mg PO DAILY 03/28/20 12/25/21 fluoxetine 40 mg capsule 40 mg PO DAILY 03/28/20 12/25/21 hydroxyzine HCl 10 mg tablet 10 mg PO BEDTIME 03/28/20 12/25/21 omeprazole 40 mg capsule,delayed 40 mg PO DAILY 03/28/20 12/25/21 release sumatriptan succinate 50 mg tablet 50 mg PO DAILY PRN 03/28/20 12/25/21 blood sugar diagnostic #10 ea 05/06/20 12/25/21 gabapentin 600 mg tablet 600 mg PO DAILY 05/06/20 12/25/21 metformin 500 mg tablet 500 mg PO BID 05/06/20 12/25/21 clonazepam 1 mg tablet 1 mg PO BEDTIME PRN 06/17/21 12/25/21 empagliflozin 25 mg tablet 25 mg PO QAM 06/17/21 12/25/21 (Jardiance) ipratropium bromide 21 mcg (0.03 intranasal 06/17/21 12/25/21 %) nasal spray lisinopril 10 mg tablet 10 mg PO DAILY 06/17/21 12/25/21 tamsulosin 0.4 mg capsule 0.4 mg PO DAILY 06/17/21 12/25/21 atorvastatin 40 mg tablet 40 mg PO DAILY 12/25/21 12/25/21 Previous Rx's Medication Instructions Recorded sildenafil 100 mg tablet 100 mg PO .PRN PRN sexual activity 06/13/20 30 days #30 tabs cholecalciferol (vitamin D3) 50 50 mcg PO DAILY 30 days #30 caps 05/05/21 mcg (2,000 unit) capsule tadalafil 20 mg tablet 20 mg PO .PRN sexual activity 30 06/17/21 days #30 tabs sucralfate 1 gram tablet 1 g PO TID #90 tabs 04/16/22 oxycodone-acetaminophen 7.5 mg-325 1 tab PO Q6H PRN pain #8 tabs 04/17/22 mg tablet (Percocet) Allergies Allergy/AdvReac Type Severity Reaction Status Date / Time codeine [CODEINE] Allergy Unknown TACHYCARDIA Verified 12/25/21 14:59 codeine AdvReac Unknown anaphylaxis Uncoded 05/05/21 11:32 Review of Systems Review of Systems: As per HPI [facility] Past Medical History Medical History Aortic valve calcification Erectile dysfunction Essential hypertension Multinodular thyroid Other and unspecified hyperlipidemia Type 2 diabetes mellitus with unspecified complications Vitamin D deficiency Family History Family History Father Stroke Brother Stroke Mother Diabetes Social History Social History Advance Directives: No Advance Directives Information Provided: No Physical Exam ED Vital Signs: Vital Signs - 24 hr 04/16/22 21:19 04/16/22 22:17 04/16/22 23:37 Temperature 96.9 F 98.3 F Pulse Rate 81 72 Respiratory Rate 18 18 14 Blood Pressure 138/91 H 123/85 Pulse Oximetry 96 98 Oxygen Delivery Method Room Air Room Air BMI result Body Mass Index 26.3 Const General: no acute distress Orientation/consciousness: patient oriented x3 HENMT Head: Yes normal to inspection General nose exam: Normal external nose present Mouth: moist mucous membranes Throat: Yes posterior oropharynx normal, Yes tonsils normal and Yes uvula midline Eyes Eyelids: Yes eyelids normal Conjunctivae: conjunctivae normal Pupils: Equal, round and reactive pupils present Neck Neck: Yes supple Resp Effort & Inspection: normal respiratory effort Auscultation: clear to auscultation bilaterally Cardio Rate: regular rate Rhythm: regular rhythm Heart sounds: S1 normal heart sound present, S2 normal heart sound present, no gallops, no murmurs and no rubs GI Inspection: No distended Palpation (GI): Soft to palpation and Tenderness to palpation present (GI) ( mildly tender hypogastric in the midline, no masses comparable, no hernia) Auscultation: normal bowel sounds Skin General skin exam: other (Warm and dry) Neuro General: patient oriented x3 and CN's II-XI intact bilaterally Cranial nerves: Yes Equal, round and reactive pupils present Extrem General: Yes no pedal edema Psych Affect: normal affect Attitude: cooperative Medications Administered Discontinued Medications Generic Name Dose Route Start Last Admin Trade Name Magdyq PRN Reason Stop Dose Admin Al Hydroxide/Mg Hydroxide 30 ml 04/16/22 23:31 04/16/22 23:37 Magnesium Hydrox/Alum Hydrox 30 Ml Oral.Susp PO 04/16/22 23:32 30 ml ONCE ONE Administration Hydromorphone HCl 1 mg 04/16/22 23:31 04/16/22 23:37 Hydromorphone Hcl 1 Mg/Ml Syringe IM 04/16/22 23:32 1 mg ONCE ONE Administration Protocol Lidocaine HCl 15 ml 04/16/22 23:31 04/16/22 23:37 Lidocaine Hcl Viscous 2 % 15 Ml Solution PO 04/16/22 23:32 15 ml ONCE ONE Administration Lorazepam 1 mg 04/16/22 21:56 04/16/22 22:06 Lorazepam 1 Mg Tablet PO 04/16/22 21:57 1 mg ONCE ONE Administration Tramadol HCl 100 mg 04/16/22 21:56 04/16/22 22:06 Tramadol Hcl 50 Mg Tablet PO 04/16/22 21:57 100 mg ONCE ONE Administration Medical Decision Making Medical Decision Making MDM Narrative: Patient with persistent mid abdominal pain, not radiating to his back, despite sucralfate and omeprazole. Patient had had a full workup including CT scan yesterday. Patient had received COVID vaccination today. Pain likely unrelated to this since the pain began before the vaccination. Patient was given lorazepam and tramadol here in the ED without relief of pain. Patient was then given Maalox, lidocaine, as well as Dilaudid IM, and did have relief of his pain. CBC, EKG, troponin, chemistry, all unremarkable. Patient is safe for outpatient follow-up. Pain of unclear etiology. Will prescribe 2 days worth of Percocet Differential Diagnosis Differential Diagnoses: The differential diagnosis associated with the presentation includes Admission/Observation Consideration of admission/observation: Escalation of care including admission/observation considered Lab Data MDM Lab Attestation statement: I reviewed the patient's lab results. 04/16/22 22:10 04/16/22 22:10 Labs: Lab Results 04/16/22 04/16/22 04/16/22 Range/Units 22:10 22:10 22:10 WBC 10.7 (4.8-10.8) X10*3/uL RBC 6.16 H (4.60-5.80) X10*6/uL Hgb 17.3 (14.0-18.0) g/dl Hct 50.5 (42.0-52.0) % MCV 82.0 (80.0-98.0) fL MCH 28.1 (27.0-33.0) pg MCHC 34.3 (31.0-36.0) g/dl RDW 12.3 (11.0-16.0) % Plt Count 218 (160-400) X10*3/uL MPV 9.4 (9.4-12.4) fL Immature Gran % (Auto) 0.4 (0.0-0.4) % Neut % (Auto) 57.4 (45-73) % Lymph % (Auto) 16.3 L (20-40) % [place] % (Auto) 5.7 (2-11) % Eos % (Auto) 19.7 H (0-4) % Baso % (Auto) 0.5 (0-2) % Lymph # (Auto) 1.7 (1.2-4.9) X10*3/uL [place] # (Auto) 0.6 (0.1-1.2) X10*3/uL Eos # (Auto) 2.1 H (0.0-0.4) X10*3/uL Baso # (Auto) 0.1 (0.0-0.2) X10*3/uL Abs Immat Gran (auto) 0.04 H (0.00-0.03) X10*3/uL Absolute Neuts (auto) 6.2 (2.0-8.3) x10*3/uL Absolute Nucleated RBC 0.000 (0.0-0.012) X10*3/uL Nucleated RBC % (auto) 0.0 (0.0-0.2) /100WBC Smear Tech's Comments VERIFIED Sodium 135 (135-145) mmol/L Potassium 4.4 (3.3-5.1) mmol/L Chloride 99 (96-108) mmol/L Carbon Dioxide 29 (22-29) mmol/L Anion Gap 11 L (12-20) BUN 25 H (9-16) mg/dL Creatinine 0.96 (0.5-1.4) mg/dL Estim Creat Clear Calc 79.1 Estimated GFR > 60 Random Glucose 109 (60-115) mg/dL Calcium 9.1 (8.4-10.2) mg/dL Total Bilirubin 0.5 (0.0-1.0) mg/dL AST 16 (5-37) U/L ALT 26 (0-40) U/L Alkaline Phosphatase 115 (39-117) U/L Troponin I High Sens < 3.5 (<3.5-35.0) ng/L Total Protein 7.1 (6.5-8.0) g/dL Albumin 4.2 (3.5-5.0) g/dL Lipase 28 (8-78) U/L Independent Interpretation I performed an independent interpretation of an: EKG ( sinus rhythm with a rate of 71. No concerning ST elevation or depression. Normal QRS axis. No ectopy.) External Record Review External record reviewed: Other prior ED record Tests considered The following testing was considered but not selected: repeat abdominal CT Prescription Management I considered prescription management with: Pain Medication Chronic Conditions Patient?s care impacted by: Diabetes and Hypertension Discharge Plan Discharge Clinical Impression: Abdominal pain Patient Disposition: Home, Self-Care Instructions: Abdominal Pain (ED) Additional Instructions: Follow-up with your primary care physician. Return for any new or worsened symptoms. Continue the sucralfate, and make sure to take your omeprazole. Use the Percocet as prescribed sparingly for uncontrolled pain for the next few days. Prescriptions: New oxycodone-acetaminophen [Percocet] 7.5-325 mg tablet 1 tab PO Q6H PRN (Reason: pain) Qty: 8 0RF Rx Instructions: Partial Fill upon patient request. No Action cholecalciferol (vitamin D3) 50 mcg (2,000 unit) capsule 50 mcg PO DAILY 30 Days Qty: 30 11RF sucralfate 1 gram tablet 1 g PO TID Qty: 90 0RF sildenafil 100 mg tablet 100 mg PO .PRN PRN (Reason: sexual activity) 30 Days Qty: 30 1RF Rx Instructions: administer 60 minutes before intended activity cetirizine 10 mg tablet 10 mg PO DAILY omeprazole 40 mg capsule,delayed release(DR/EC) 40 mg PO DAILY fluoxetine 40 mg capsule 40 mg PO DAILY hydroxyzine HCl 10 mg tablet 10 mg PO BEDTIME sumatriptan succinate 50 mg tablet 50 mg PO DAILY PRN aspirin [Adult Low Dose Aspirin] 81 mg tablet,delayed release (DR/EC) 81 mg PO DAILY gabapentin 600 mg tablet 600 mg PO DAILY metformin 500 mg tablet 500 mg PO BID clonazepam 1 mg tablet 1 mg PO BEDTIME PRN ipratropium bromide 21 mcg (0.03 %) spray,non-aerosol intranasal Jardiance 25 mg tablet 25 mg PO QAM tamsulosin 0.4 mg capsule 0.4 mg PO DAILY lisinopril 10 mg tablet 10 mg PO DAILY tadalafil 20 mg tablet 20 mg PO .PRN 30 Days Qty: 30 1RF (DME) FreeStyle Lite Strips Strip See Rx Instructions Not Applicable DAILY Qty: 10 Rx Instructions: As directed atorvastatin 40 mg tablet 40 mg PO DAILY
[2022-04-16] MEDS: LORazepam 1 MG TABLET PO (22:06)
[2022-04-16] MEDS: traMADoL HCL 50 MG TABLET 100 MG PO (22:06)
[2022-04-16 22:17] VITALS: BP 123/85; PULSE 72; RESP 18; TEMP 36.8; O2SAT 98
[2022-04-16 22:30] LABS: Alanine Aminotransferase 26 U/L (0-40); Albumin Level 4.2 g/dL (3.5-5.0); Alkaline Phosphatase 115 U/L (39-117); Anion Gap 11 (12-20); Aspartate Amino Transferase 16 U/L (5-37); Bilirubin Total 0.5 mg/dL (0.0-1.0); Blood Urea Nitrogen 25 mg/dL (9-16); Calcium 9.1 mg/dL (8.4-10.2); Carbon Dioxide 29 mmol/L (22-29); Chloride 99 mmol/L (96-108); Creatinine Clr Calc Pharmacy 79.1; Estimated Glomerular Filt Rate > 60; Glucose Random 109 mg/dL (60-115); Lipase 28 U/L (8-78); Potassium 4.4 mmol/L (3.3-5.1); Sodium 135 mmol/L (135-145); Total Protein 7.1 g/dL (6.5-8.0)
[2022-04-16 22:34] LABS: Basophils Absolute Auto 0.1 X10*3/uL (0.0-0.2); Basophils Percent Auto 0.5 % (0-2); Eosinophils Absolute Auto 2.1 X10*3/uL (0.0-0.4); Eosinophils Percent Auto 19.7 % (0-4); Hematocrit 50.5 % (42.0-52.0); Hemoglobin 17.3 g/dl (14.0-18.0); Imm Gran Abs Auto 0.04 X10*3/uL (0.00-0.03); Imm Gran Pct Auto 0.4 % (0.0-0.4); Lymphocytes Absolute Auto 1.7 X10*3/uL (1.2-4.9); Lymphocytes Percent Auto 16.3 % (20-40); MANUAL DIFF FLAG SCAN; Mean Corpuscular HGB Conc 34.3 g/dl (31.0-36.0); Mean Corpuscular Hemoglobin 28.1 pg (27.0-33.0); Mean Platelet Volume 9.4 fL (9.4-12.4); Monocytes Absolute Auto 0.6 X10*3/uL (0.1-1.2); Monocytes Percent Auto 5.7 % (2-11); Neutrophils Absolute Auto 6.2 x10*3/uL (2.0-8.3); Neutrophils Percent Auto 57.4 % (45-73); Platelet Count 218 X10*3/uL (160-400); Red Blood Count 6.16 X10*6/uL (4.60-5.80); Red Cell Distribution Width 12.3 % (11.0-16.0); SCAN SMEAR FLAG 1; White Blood Count 10.7 X10*3/uL (4.8-10.8)
[2022-04-16 22:37] LABS: Troponin-I High Sensitivity < 3.5 ng/L (<3.5-35.0)
[2022-04-16 22:56] LABS: SLIDE REVIEW VERIFIED
[2022-04-16 23:37] VITALS: RESP 14
[2022-04-16] MEDS: Magnesium Hydrox/Alum Hydrox 30 ML ORAL.SUSP PO (23:37)
[2022-04-16] MEDS: Lidocaine HCl Viscous 2 % 15 ML SOLUTION PO (23:37)
[2022-04-16] MEDS: HYDROmorphone HCl 1 MG/ML SYRINGE IM (23:37)
[2022-04-17 00:49] VITALS: BP 110/84; PULSE 83; RESP 16; TEMP 36.9; O2SAT 96
== END 2022-04-17 00:55 | disposition home or self-care (01) ==
PROVIDERS: Emergency Provider Emergency Medicine
DX: R10.9 Unspecified abdominal pain (principal); Z79.899 Other long term (current) drug therapy
CPT/HCPCS: 36415; 80053; 83690; 84484; 85025; 93005; 96372; 99284; J1170

== ENCOUNTER 2022-04-28 13:09 | Outpatient (REF) | payer MEDICARE, MEDICAID, SELFPAY ==
[2022-04-28 14:44] LABS: Free T4 (Free Thyroxine) 0.94 ng/dL (0.71-1.85); Thyroid Stimulating Hormone 2.02 uIU/mL (0.32-4.0); Vitamin D 25-OH Total 24.7 ng/mL (>30)
== END 2022-04-28 13:10 | disposition home or self-care (01) ==
LOC: HO.HMGCLDS 13:09
PROVIDERS: PCP Internal Medicine; Visit Provider Internal Medicine
DX: E04.2 Nontoxic multinodular goiter (principal); E55.9 Vitamin D deficiency, unspecified
CPT/HCPCS: 36415; 82306; 84439; 84443

== ENCOUNTER → 2022-04-29 12:32 | Outpatient (BNVA) | payer MEDICARE, MEDICAID, SELFPAY | PROVIDERS: Visit Provider Internal Medicine | DX: K21.9 Gastro-esophageal reflux disease without esophagitis (principal); R10.9 Unspecified abdominal pain; Z86.010 Personal history of colon polyps | CPT/HCPCS: 99202 ==

== ENCOUNTER → 2022-05-04 14:41 | Outpatient (BNVA) | payer MEDICARE, MEDICAID, SELFPAY | PROVIDERS: Visit Provider Internal Medicine | DX: E04.2 Nontoxic multinodular goiter (principal) | CPT/HCPCS: 99212 ==

== ENCOUNTER 2022-07-13 12:42 | Emergency (ER) | payer MEDICARE, MEDICAID, SELFPAY ==
--- NOTE | ~2022-07-13 | XR_ITS ---
EXAMINATION: XR LUMBOSACRAL SPINE CLINICAL INFORMATION: Back pain COMPARISON: CT abdomen pelvis 04/15/2022 TECHNIQUE: Three views of the lumbosacral spine. FINDINGS: Disc height narrowing and vacuum disc changes with vertebral endplate spurring at L5-S1. Remainder of lumbar disc heights are normal. Mild degenerative change of facet joints at the lumbosacral junction. Vertebrae have normal height and alignment. No spondylolysis or spondylolisthesis. Sacroiliac joints are normal. XR/XR lumbar spine 2-3V IMPRESSION: 1. No acute abnormality. 2. Degenerative spondylosis of L5-S1.
[2022-07-13 12:53] VITALS: BP 143/91; PULSE 74; RESP 18; TEMP 36.7; O2SAT 99; BMI 28.8
--- NOTE | 2022-07-13 12:55 | ED_ITS ---
HPI - Back Pain/Injury General Chief Complaint: Back Pain/Injury Stated Complaint: Lower back pain Related Data Home Medications Medication Instructions Recorded Confirmed fluoxetine 40 mg capsule 40 mg PO DAILY 03/28/20 05/04/22 hydroxyzine HCl 10 mg tablet 10 mg PO BEDTIME 03/28/20 05/04/22 sumatriptan succinate 50 mg tablet 50 mg PO DAILY PRN 03/28/20 05/04/22 blood sugar diagnostic #10 ea 05/06/20 05/04/22 gabapentin 600 mg tablet 600 mg PO DAILY 05/06/20 05/04/22 metformin 500 mg tablet 500 mg PO BID 05/06/20 05/04/22 clonazepam 1 mg tablet 1 mg PO BEDTIME PRN 06/17/21 05/04/22 empagliflozin 25 mg tablet 25 mg PO QAM 06/17/21 05/04/22 (Jardiance) ipratropium bromide 21 mcg (0.03 intranasal 06/17/21 05/04/22 %) nasal spray lisinopril 10 mg tablet 10 mg PO DAILY 06/17/21 05/04/22 tamsulosin 0.4 mg capsule 0.4 mg PO DAILY 06/17/21 05/04/22 atorvastatin 40 mg tablet 40 mg PO DAILY 12/25/21 05/04/22 cetirizine 10 mg tablet 10 mg PO DAILY PRN allergy symptoms 05/04/22 05/04/22 Previous Rx's Medication Instructions Recorded sildenafil 100 mg tablet 100 mg PO .PRN PRN sexual activity 06/13/20 30 days #30 tabs tadalafil 20 mg tablet 20 mg PO .PRN sexual activity 30 06/17/21 days #30 tabs sucralfate 1 gram tablet 1 g PO TID #90 tabs 04/16/22 omeprazole 40 mg capsule,delayed 40 mg PO DAILY #30 caps 04/29/22 release cholecalciferol (vitamin D3) 50 50 mcg PO DAILY 30 days #30 caps 05/04/22 mcg (2,000 unit) capsule Allergies Allergy/AdvReac Type Severity Reaction Status Date / Time codeine [CODEINE] Allergy Unknown TACHYCARDIA Verified 05/04/22 15:11 codeine AdvReac Unknown anaphylaxis Uncoded 05/04/22 15:11 [facility] Past Medical History Medical History Aortic valve calcification Erectile dysfunction Essential hypertension Multinodular thyroid Other and unspecified hyperlipidemia Type 2 diabetes mellitus with unspecified complications Vitamin D deficiency Surgical History H/O colonoscopy History of esophagogastroduodenoscopy (EGD) Family History Family History Father Stroke Brother Stroke Mother Diabetes Social History Social History Alcohol intake: former Patient Tobacco Use Status: Former Tobacco user Course Course Course Narrative: RME - 61yo male presenting for lumbar back pain radiating to both legs following yard work a few days ago. Denies urinary symptoms. Endorses increased pain with movement. VSS in triage Plan: Full exam and treatment of pain in [facility] Discharge Plan Discharge Prescriptions: No Action sucralfate 1 gram tablet 1 g PO TID Qty: 90 0RF sildenafil 100 mg tablet 100 mg PO .PRN PRN (Reason: sexual activity) 30 Days Qty: 30 1RF Rx Instructions: administer 60 minutes before intended activity fluoxetine 40 mg capsule 40 mg PO DAILY hydroxyzine HCl 10 mg tablet 10 mg PO BEDTIME sumatriptan succinate 50 mg tablet 50 mg PO DAILY PRN gabapentin 600 mg tablet 600 mg PO DAILY metformin 500 mg tablet 500 mg PO BID cetirizine 10 mg tablet 10 mg PO DAILY PRN (Reason: allergy symptoms) clonazepam 1 mg tablet 1 mg PO BEDTIME PRN ipratropium bromide 21 mcg (0.03 %) spray,non-aerosol intranasal Jardiance 25 mg tablet 25 mg PO QAM tamsulosin 0.4 mg capsule 0.4 mg PO DAILY lisinopril 10 mg tablet 10 mg PO DAILY tadalafil 20 mg tablet 20 mg PO .PRN 30 Days Qty: 30 1RF (DME) FreeStyle Lite Strips Strip See Rx Instructions Not Applicable DAILY Qty: 10 Rx Instructions: As directed omeprazole 40 mg capsule,delayed release(DR/EC) 40 mg PO DAILY Qty: 30 0RF atorvastatin 40 mg tablet 40 mg PO DAILY cholecalciferol (vitamin D3) 50 mcg (2,000 unit) capsule 50 mcg PO DAILY 30 Days Qty: 30 11RF
[2022-07-13] MEDS: Ketorolac Tromethamine 30 MG/ML VIAL IM (13:34)
[2022-07-13 15:08] VITALS: BP 115/75; PULSE 65; RESP 14; O2SAT 95
--- NOTE | 2022-07-13 15:26 | ED.GENADULT ---
HPI - General Adult General Chief complaint: Back Pain/Injury Stated complaint: Lower back pain Time Seen by Provider: 07/13/22 13:35 Source: patient Mode of arrival: ambulatory Limitations: no limitations History of Present Illness HPI narrative: 61 yold male presents to the ED for back pain that is worse on movement. patient states back pain after bending and moving back awkardly while trimming the grass. patient denies falling to the ground, blunt trauma, abdominal pain, nausea, vomitting, fever, chills, flank pain, dysuria, hematuria, or any other concerning symptoms. patient denies any urinary/bowel incontinence Related Data Home Medications Medication Instructions Recorded Confirmed fluoxetine 40 mg capsule 40 mg PO DAILY 03/28/20 05/04/22 hydroxyzine HCl 10 mg tablet 10 mg PO BEDTIME 03/28/20 05/04/22 sumatriptan succinate 50 mg tablet 50 mg PO DAILY PRN 03/28/20 05/04/22 blood sugar diagnostic #10 ea 05/06/20 05/04/22 gabapentin 600 mg tablet 600 mg PO DAILY 05/06/20 05/04/22 metformin 500 mg tablet 500 mg PO BID 05/06/20 05/04/22 clonazepam 1 mg tablet 1 mg PO BEDTIME PRN 06/17/21 05/04/22 empagliflozin 25 mg tablet 25 mg PO QAM 06/17/21 05/04/22 (Jardiance) ipratropium bromide 21 mcg (0.03 intranasal 06/17/21 05/04/22 %) nasal spray lisinopril 10 mg tablet 10 mg PO DAILY 06/17/21 05/04/22 tamsulosin 0.4 mg capsule 0.4 mg PO DAILY 06/17/21 05/04/22 atorvastatin 40 mg tablet 40 mg PO DAILY 12/25/21 05/04/22 cetirizine 10 mg tablet 10 mg PO DAILY PRN allergy symptoms 05/04/22 05/04/22 Previous Rx's Medication Instructions Recorded sildenafil 100 mg tablet 100 mg PO .PRN PRN sexual activity 06/13/20 30 days #30 tabs tadalafil 20 mg tablet 20 mg PO .PRN sexual activity 30 06/17/21 days #30 tabs sucralfate 1 gram tablet 1 g PO TID #90 tabs 04/16/22 omeprazole 40 mg capsule,delayed 40 mg PO DAILY #30 caps 04/29/22 release cholecalciferol (vitamin D3) 50 50 mcg PO DAILY 30 days #30 caps 05/04/22 mcg (2,000 unit) capsule cyclobenzaprine 10 mg tablet 10 mg PO TID PRN muscle spasm 5 07/13/22 days #15 tabs ketorolac 10 mg tablet 10 mg PO Q6H PRN pain 5 days #20 07/13/22 tabs prednisone 20 mg tablet 40 mg PO DAILY 5 days #10 tabs 07/13/22 Allergies Allergy/AdvReac Type Severity Reaction Status Date / Time codeine [CODEINE] Allergy Unknown TACHYCARDIA Verified 05/04/22 15:11 codeine AdvReac Unknown anaphylaxis Uncoded 05/04/22 15:11 Review of Systems Review of Systems: Lower back pain Yes all other systems are reviewed and are negative [facility] Past Medical History Medical History Aortic valve calcification Erectile dysfunction Essential hypertension Multinodular thyroid Other and unspecified hyperlipidemia Type 2 diabetes mellitus with unspecified complications Vitamin D deficiency Surgical History H/O colonoscopy History of esophagogastroduodenoscopy (EGD) Family History Family History Father Stroke Brother Stroke Mother Diabetes Social History Social History Alcohol intake: former Patient Tobacco Use Status: Former Tobacco user Advance Directives: No Advance Directives Information Provided: Yes Physical Exam ED Vital Signs: Vital Signs - 24 hr 07/13/22 12:53 07/13/22 15:08 Temperature 98.0 F Pulse Rate 74 65 Respiratory Rate 18 14 Blood Pressure 143/91 H 115/75 Pulse Oximetry 99 95 Oxygen Delivery Method Room Air Room Air BMI result Body Mass Index 28.8 Const General: cooperative, healthy appearing, comfortable, no acute distress, well developed, alert, awake and Physically active Orientation/consciousness: oriented to person, oriented to place, oriented to time and patient oriented x3 HENMT Head: Yes normal to inspection, Yes No palpable skull fracture present, Yes normocephalic and Yes atraumatic Eyes General: appearance normal, both eyes and all related structures Neck Neck: Yes normal visual inspection, Yes full ROM, Yes no lymphadenopathy, Yes no meningeal signs, Yes trachea midline, Yes supple, No anterior neck swelling and No tender Chest Chest palpation & inspection: normal inspection of the chest and normal palpation of entire chest wall Resp Effort & Inspection: normal respiratory effort and able to speak in complete sentences Auscultation: clear to auscultation bilaterally Cardio Jugular venous distension: no JVD Heart sounds: S1 normal heart sound present and S2 normal heart sound present GI Inspection: Yes normal to inspection and No abdominal wall ecchymosis Palpation (GI): Soft to palpation, not firm, nontender, no guarding and not rigid General: No CVA tenderness and Yes no CVA tenderness Back/Spine/Pelvis Back: no CVA tenderness, No CVA tenderness and back tenderness (lumbar) Skin General skin exam: no rashes or lesions noted, elasticity normal and turgor normal Neuro General: oriented to person, oriented to place, oriented to time, patient oriented x3, gait normal, moves all extremities, Normal light touch and pain sensation, no meningeal signs, no focal motor deficits, CN's II-XI intact bilaterally and normal sensation to monofilament Extrem General: Yes normal to inspection, Yes full ROM and Yes capillary refill normal Psych Appearance: grossly normal, well kempt and not disheveled Course Course Course Narrative: Patient sent from lumbar spine x-ray. Reevaluation(s) Reevaluation #1: Lumbar spine x-ray negative for fracture. Most likely patient has strain back. Not suspecting epidural abscess, cauda equinus syndrome, osteomyelitis. Not suspecting kidney stones or UTI. Time: 15:32 Medications Administered Discontinued Medications Generic Name Dose Route Start Last Admin Trade Name Freq PRN Reason Stop Dose Admin Ketorolac Tromethamine 30 mg 07/13/22 12:57 07/13/22 13:34 Ketorolac Tromethamine 30 Mg/Ml Vial IM 07/13/22 12:58 30 mg ONCE ONE Administration Medical Decision Making Medical Decision Making [facility] Narrative: 61 yold male presents to the ED for lower back pain worse on movement after trimming grass. Lumbar spine x-ray normal. Patient given Toradol. Not suspecting epidural abscess, cauda equinus syndrome, osteomyelitis, kidney stones, UTI, fracture. Differential Diagnosis Differential Diagnoses: The differential diagnosis associated with the presentation includes (Epidural abscess, osteomyelitis, cauda equinus syndrome, kidney stones, UTI, fracture.) Admission/Observation Consideration of admission/observation: Escalation of care including admission/observation considered Independent Interpretation I performed an independent interpretation of an: Plain X-Ray Radiology Impression Discussion of test interpretation with radiology: I have reviewed the radiologist's reading. Prescription Management I considered prescription management with: Pain Medication Discharge Plan Discharge Clinical Impression: Lumbar radiculopathy Patient Disposition: Home, Self-Care Instructions: Lumbar Radiculopathy (ED) Additional Instructions: Regrese al servicio de urgencias inmediatamente si empeora el dolor de espalda, la incontinencia urinaria o intestinal, el dolor abdominal, las n?useas, los v?mitos, la disuria, la hematuria, el dolor en el costado, la fiebre, los escalofr?os o cualquier otro s?ntoma preocupante. Por favor, brittany un seguimiento con el proveedor de atenci?n primaria. Prescriptions: New prednisone 20 mg tablet 40 mg PO DAILY 5 Days Qty: 10 0RF ketorolac 10 mg tablet 10 mg PO Q6H PRN (Reason: pain) 5 Days Qty: 20 0RF Rx Instructions: Received toradol 30mg IM cyclobenzaprine 10 mg tablet 10 mg PO TID PRN (Reason: muscle spasm) 5 Days Qty: 15 0RF Rx Instructions: Side effect is drowsiness. Do not take at work or while driving. No Action sucralfate 1 gram tablet 1 g PO TID Qty: 90 0RF sildenafil 100 mg tablet 100 mg PO .PRN PRN (Reason: sexual activity) 30 Days Qty: 30 1RF Rx Instructions: administer 60 minutes before intended activity fluoxetine 40 mg capsule 40 mg PO DAILY hydroxyzine HCl 10 mg tablet 10 mg PO BEDTIME sumatriptan succinate 50 mg tablet 50 mg PO DAILY PRN gabapentin 600 mg tablet 600 mg PO DAILY metformin 500 mg tablet 500 mg PO BID cetirizine 10 mg tablet 10 mg PO DAILY PRN (Reason: allergy symptoms) clonazepam 1 mg tablet 1 mg PO BEDTIME PRN ipratropium bromide 21 mcg (0.03 %) spray,non-aerosol intranasal Jardiance 25 mg tablet 25 mg PO QAM tamsulosin 0.4 mg capsule 0.4 mg PO DAILY lisinopril 10 mg tablet 10 mg PO DAILY tadalafil 20 mg tablet 20 mg PO .PRN 30 Days Qty: 30 1RF (DME) FreeStyle Lite Strips Strip See Rx Instructions Not Applicable DAILY Qty: 10 Rx Instructions: As directed omeprazole 40 mg capsule,delayed release(DR/EC) 40 mg PO DAILY Qty: 30 0RF atorvastatin 40 mg tablet 40 mg PO DAILY cholecalciferol (vitamin D3) 50 mcg (2,000 unit) capsule 50 mcg PO DAILY 30 Days Qty: 30 11RF Stand Alone Forms: Work/School Release Interventions: ED Discharge Assessment Last Done: 07/13/22 15:58 Discharge Date/Time: 07/13/22 16:01 Print Language: Slovenian
== END 2022-07-13 16:01 | disposition home or self-care (01) ==
PROVIDERS: Emergency Provider Emergency Medicine
DX: M54.16 Radiculopathy, lumbar region (principal); M54.50 Low back pain, unspecified; E11.9 Type 2 diabetes mellitus without complications; I10 Essential (primary) hypertension; E78.5 Hyperlipidemia, unspecified; Z79.84 Long term (current) use of oral hypoglycemic drugs; Z79.899 Other long term (current) drug therapy; Z79.02 Long term (current) use of antithrombotics/antiplatelets; Z87.891 Personal history of nicotine dependence
CPT/HCPCS: 72100; 96372; 99284; J1885

== ENCOUNTER 2022-07-28 11:10 | Outpatient (REF) | payer MEDICARE, MEDICAID, SELFPAY | END 2022-07-28 11:11 | disposition home or self-care (01) | LOC: HO.HMGCLDS 11:10 | PROVIDERS: Visit Provider Urology | DX: Z12.5 Encounter for screening for malignant neoplasm of prostate (principal); E11.69 Type 2 diabetes mellitus with other specified complication; N52.1 Erectile dysfunction due to diseases classified elsewhere | CPT/HCPCS: 36415; 84153 ==

== ENCOUNTER 2022-08-11 17:23 | Observation (INO) | payer MEDICARE, MEDICAID, SELFPAY ==
--- NOTE | ~2022-08-11 | MR_ITS ---
EXAMINATION: MRI OF THE BRAIN WITHOUT CONTRAST CLINICAL INFORMATION: Right facial droop. COMPARISON: CTA of the head and neck 08/11/2022. CT scan of the head 12/15/2018. TECHNIQUE: MRI of the brain was obtained using routine sequences without contrast. FINDINGS: No diffusion abnormalities are identified to suggest an acute or subacute infarct. No mass effect or midline shift is seen. There is mild commensurate prominence of the ventricles and sulci consistent with diffuse volume loss. There are a few scattered foci of hyperintense T2 and FLAIR signal in the periventricular and subcortical white matter, most consistent with mild chronic microvascular ischemic changes. No extra-axial fluid collections are seen. The brainstem and cerebellum are normal. No pathologic magnetic susceptibility artifact is identified on the gradient refocused acquisition. The craniovertebral junction and midline structures are normal. Overall, marrow signal is homogenous. The major intracranial flow-voids at the level of the [place] are preserved. The dural venous sinus flow-voids are maintained. The mastoid air cells are well-aerated. There is minimal mucoperiosteal thickening in the bilateral ethmoid sinuses. MR/MR head/brain wo con IMPRESSION: 1. There are no acute bleeds or territorial infarcts. No masses are demonstrated. 2. There are chronic microvascular ischemic changes and there is diffuse volume loss.
--- NOTE | ~2022-08-11 | CT_ITS ---
EXAMINATION: CT ANGIOGRAM HEAD CT ANGIOGRAM NECK CLINICAL INFORMATION: right facial droop COMPARISON: Same day head CT TECHNIQUE: Initial noncontrast boarding mother imaging of the head and neck was performed. Comparison is made with noncontrast head CT from earlier today. Test bolus sequences followed by intravenous administration 70 mL of Omnipaque 350. Helical imaging was performed in the axial plane from the aortic arch to the skull vertex. Delayed postcontrast imaging of the head was also performed. The data was processed at the electrical engineering technologist's workstation for generation of MIP sequences. Angled MIPs and volume rendered reformatted images were also generated at an offline 3D workstation. Stenoses are assessed in accordance with Henry et al. Quantification of Carotid Stenosis on CT Angiography. AJR 2006. 27(1):13-19. [address] CT examination was performed using dose optimization techniques as appropriate, variously including the following: *Automated exposure control *Adjustment of mA and/or kV according to patient size (this includes techniques or standardized protocols for targeted exams where dose is matched to indication/reason for exam; i.e. extremities or head) *Use of iterative reconstruction technique DLP: 1442.06 mGy-cm FINDINGS: CT HEAD: Noncontrast head CT findings are discussed separately. 4 mm differential hypoenhancement within the posterior left paramedian pituitary gland may reflect a pituitary microadenoma and can be further evaluated with sellar protocol contrast-enhanced MRI and correlated with pituitary function tests. No pathologic intra-axial enhancement within limitations of CT or regional oligemia. CTA HEAD: Venous contamination compromises diagnostic assessment. Multifocal calcific plaque along the carotid siphons contributing to mild bilateral supraclinoid stenosis. 2 mm left posterior communicating artery infundibular origin versus aneurysm. The MCA vascular complexes are normal bilaterally. The SHANIQUA complexes are normal bilaterally. The intradural vertebral arteries are patent. The basilar artery is normal. The posterior cerebral arteries are widely patent. No proximal large vessel occlusion. No high flow vascular malformations. No evidence of dural arteriovenous fistula. Timing of the contrast bolus allows assessment of the major dural venous sinuses, which all opacify normally CTA NECK: Suboptimal contrast bolus timing compromises diagnostic assessment. Four vessel branching pattern with left vertebral artery arising directly from the arch between the left common carotid and left subclavian arteries. Origins of the great vessels are widely patent. The common carotid arteries are widely patent. The carotid bifurcations and bilateral internal carotid arteries are patent with focal tortuosity of the distal left cervical segment. The vertebral arteries are codominant The vertebral artery ostia are widely patent. Both vertebral arteries are widely patent throughout their extracranial cervical course. CT NECK: Trace mucosal disease within the left maxillary sinus alveolar recess. Incidental boutonniere deformities of the mylohyoid muscles with partially herniated left sublingual gland into the left mandibular space. Elongated and ossified styloid processes can be correlated for signs of Koi syndrome. Bilateral palatine tonsilloliths. Right facial subcutaneous nodule abutting the dermis may reflect sebaceous cyst and can be correlated with direct inspection. The visualized lung apices and upper mediastinum are within normal limits. Diffuse osteopenia and multilevel cervical spondylosis. CT/CT angio head neck IMPRESSION: 1. 4 mm differential hypoenhancement within the posterior left paramedian pituitary gland may reflect a pituitary microadenoma and can be further evaluated with sellar protocol contrast-enhanced MRI and correlated with pituitary function tests. 2. No acute arterial occlusion or hemodynamically significant stenosis within the head or neck. 3. 2 mm left posterior communicating artery infundibular origin versus aneurysm. 4. Elongated and ossified styloid processes can be correlated for signs of Koi syndrome.
--- NOTE | ~2022-08-11 | CT_ITS ---
EXAMINATION: CT HEAD WITHOUT CONTRAST CLINICAL INFORMATION: Right-sided facial droop since 9:00 AM COMPARISON: 12/15/2018 TECHNIQUE: Contiguous axial imaging was performed from the skull base to vertex without intravenous contrast. This CT examination was performed using dose optimization techniques as appropriate, variously including the following: * Automated exposure control * Adjustment of mA and/or kV according to patient size (this includes techniques or standardized protocols for targeted exams where dose is matched to indication/reason for exam; i.e. extremities or head) Use of iterative reconstruction technique DLP: 644 mGy-cm. FINDINGS: There is no evidence of acute intracranial hemorrhage or territorial infarction. No abnormal mass effect or midline shift is seen. Singh to white matter differentiation is well preserved. No extra-axial fluid collections are identified. No hydrocephalus. No significant volume loss. There is no abnormal attenuation within the brain parenchyma. The osseous structures and soft tissues are normal. The mastoid air cells and visualized portions of the paranasal sinuses are well aerated. CT/CT head/brain wo IV con IMPRESSION: No acute intracranial pathology.
--- NOTE | 2022-08-11 17:33 | ED_ITS ---
HPI - General Adult General Stated complaint: Facial drooping Related Data Home Medications Medication Instructions Recorded Confirmed fluoxetine 40 mg capsule 40 mg PO DAILY 03/28/20 05/04/22 hydroxyzine HCl 10 mg tablet 10 mg PO BEDTIME 03/28/20 05/04/22 sumatriptan succinate 50 mg tablet 50 mg PO DAILY PRN 03/28/20 05/04/22 blood sugar diagnostic #10 ea 05/06/20 05/04/22 gabapentin 600 mg tablet 600 mg PO DAILY 05/06/20 05/04/22 metformin 500 mg tablet 500 mg PO BID 05/06/20 05/04/22 clonazepam 1 mg tablet 1 mg PO BEDTIME PRN 06/17/21 05/04/22 empagliflozin 25 mg tablet 25 mg PO QAM 06/17/21 05/04/22 (Jardiance) ipratropium bromide 21 mcg (0.03 intranasal 06/17/21 05/04/22 %) nasal spray lisinopril 10 mg tablet 10 mg PO DAILY 06/17/21 05/04/22 tamsulosin 0.4 mg capsule 0.4 mg PO DAILY 06/17/21 05/04/22 atorvastatin 40 mg tablet 40 mg PO DAILY 12/25/21 05/04/22 cetirizine 10 mg tablet 10 mg PO DAILY PRN allergy symptoms 05/04/22 05/04/22 Previous Rx's Medication Instructions Recorded sildenafil 100 mg tablet 100 mg PO .PRN PRN sexual activity 06/13/20 30 days #30 tabs tadalafil 20 mg tablet 20 mg PO .PRN sexual activity 30 06/17/21 days #30 tabs sucralfate 1 gram tablet 1 g PO TID #90 tabs 04/16/22 omeprazole 40 mg capsule,delayed 40 mg PO DAILY #30 caps 04/29/22 release cholecalciferol (vitamin D3) 50 50 mcg PO DAILY 30 days #30 caps 05/04/22 mcg (2,000 unit) capsule cyclobenzaprine 10 mg tablet 10 mg PO TID PRN muscle spasm 5 07/13/22 days #15 tabs ketorolac 10 mg tablet 10 mg PO Q6H PRN pain 5 days #20 07/13/22 tabs prednisone 20 mg tablet 40 mg PO DAILY 5 days #10 tabs 07/13/22 Allergies Allergy/AdvReac Type Severity Reaction Status Date / Time codeine [CODEINE] Allergy Unknown TACHYCARDIA Verified 05/04/22 15:11 codeine AdvReac Unknown anaphylaxis Uncoded 05/04/22 15:11 [facility] Past Medical History Medical History Aortic valve calcification Erectile dysfunction Essential hypertension Multinodular thyroid Other and unspecified hyperlipidemia Type 2 diabetes mellitus with unspecified complications Vitamin D deficiency Surgical History H/O colonoscopy History of esophagogastroduodenoscopy (EGD) Family History Family History Father Stroke Brother Stroke Mother Diabetes Social History Social History Alcohol intake: former Patient Tobacco Use Status: Former Tobacco user Course Course Course Narrative: This is an RME: Additional HPI, ROS, PE not included below will be deferred to primary provider. 61 y/o M, hx diabetes, HLD, HTN, no AC use, left sided facial droop since 9am. Last known normal was last night at midnight. Complaining of Right eye visual deficits. Pt with asymmetric smile, able to wrinkle forehead. VSS. Father, 3 brothers and niece all passed from stroke. 5/5 strength in upper and lower extremities. Plan: Labs, CT head. Not TPA candidate due to length of symptoms. Discharge Plan Discharge Prescriptions: No Action sucralfate 1 gram tablet 1 g PO TID Qty: 90 0RF prednisone 20 mg tablet 40 mg PO DAILY 5 Days Qty: 10 0RF ketorolac 10 mg tablet 10 mg PO Q6H PRN (Reason: pain) 5 Days Qty: 20 0RF Rx Instructions: Received toradol 30mg IM cyclobenzaprine 10 mg tablet 10 mg PO TID PRN (Reason: muscle spasm) 5 Days Qty: 15 0RF Rx Instructions: Side effect is drowsiness. Do not take at work or while driving. sildenafil 100 mg tablet 100 mg PO .PRN PRN (Reason: sexual activity) 30 Days Qty: 30 1RF Rx Instructions: administer 60 minutes before intended activity fluoxetine 40 mg capsule 40 mg PO DAILY hydroxyzine HCl 10 mg tablet 10 mg PO BEDTIME sumatriptan succinate 50 mg tablet 50 mg PO DAILY PRN gabapentin 600 mg tablet 600 mg PO DAILY metformin 500 mg tablet 500 mg PO BID cetirizine 10 mg tablet 10 mg PO DAILY PRN (Reason: allergy symptoms) clonazepam 1 mg tablet 1 mg PO BEDTIME PRN ipratropium bromide 21 mcg (0.03 %) spray,non-aerosol intranasal Jardiance 25 mg tablet 25 mg PO QAM tamsulosin 0.4 mg capsule 0.4 mg PO DAILY lisinopril 10 mg tablet 10 mg PO DAILY tadalafil 20 mg tablet 20 mg PO .PRN 30 Days Qty: 30 1RF (DME) FreeStyle Lite Strips Strip See Rx Instructions Not Applicable DAILY Qty: 10 Rx Instructions: As directed omeprazole 40 mg capsule,delayed release(DR/EC) 40 mg PO DAILY Qty: 30 0RF atorvastatin 40 mg tablet 40 mg PO DAILY cholecalciferol (vitamin D3) 50 mcg (2,000 unit) capsule 50 mcg PO DAILY 30 Days Qty: 30 11RF
[2022-08-11 17:35] VITALS: BP 139/97; PULSE 84; RESP 18; TEMP 36.4; O2SAT 95; BMI 28.8
[2022-08-11 17:49] LABS: MANUAL DIFF FLAG NO
[2022-08-11 17:55] LABS: INTERNATIONAL NORM RATIO 0.9 (0.9-1.1); Prothrombin Time 10.3 SEC (10.0-13.1)
[2022-08-11 17:58] LABS: Partial Thromboplastin Time 32.1 SEC (26.0-36.4)
[2022-08-11 18:01] LABS: Basophils Percent Auto 0.5 % (0-2); Eosinophils Absolute Auto 0.1 X10*3/uL (0.0-0.4); Eosinophils Percent Auto 1.6 % (0-4); Hematocrit 49.6 % (42.0-52.0); Hemoglobin 17.3 g/dl (14.0-18.0); Imm Gran Abs Auto 0.05 X10*3/uL (0.00-0.03); Imm Gran Pct Auto 0.9 % (0.0-0.4); Lymphocytes Percent Auto 36.1 % (20-40); Mean Corpuscular HGB Conc 34.9 g/dl (31.0-36.0); Mean Corpuscular Hemoglobin 28.4 pg (27.0-33.0); Mean Corpuscular Volume 81.3 fL (80.0-98.0); Mean Platelet Volume 9.7 fL (9.4-12.4); Monocytes Absolute Auto 0.5 X10*3/uL (0.1-1.2); Monocytes Percent Auto 8.2 % (2-11); Neutrophils Percent Auto 52.7 % (45-73); Platelet Count 213 X10*3/uL (160-400); Red Cell Distribution Width 12.1 % (11.0-16.0); White Blood Count 5.6 X10*3/uL (4.8-10.8)
[2022-08-11 18:05] LABS: Alanine Aminotransferase 33 U/L (0-40); Albumin Level 4.5 g/dL (3.5-5.0); Alkaline Phosphatase 108 U/L (39-117); Anion Gap 12 (12-20); Bilirubin Direct 0.1 mg/dL (0.0-0.5); Bilirubin Total 0.5 mg/dL (0.0-1.0); Chloride 104 mmol/L (96-108); Creatinine Clr Calc Pharmacy 71.3; Estimated Glomerular Filt Rate > 60; Lipase 25 U/L (8-78); Potassium 4.1 mmol/L (3.3-5.1); Sodium 136 mmol/L (135-145); Total Protein 7.6 g/dL (6.5-8.0)
[2022-08-11 18:13] LABS: Aspartate Amino Transferase 18 U/L (5-37); Blood Urea Nitrogen 24 mg/dL (9-16); Calcium 9.6 mg/dL (8.4-10.2); Carbon Dioxide 24 mmol/L (22-29); Glucose Random 201 mg/dL (60-115)
--- NOTE | 2022-08-11 19:53 | ECG_ITS ---
Test Reason : weakness Blood Pressure : / mmHG Vent. Rate : 076 BPM Atrial Rate : 076 BPM P-R Int : 200 ms QRS Dur : 090 ms QT Int : 364 ms P-R-T Axes : 032 -22 005 degrees QTc Int : 409 ms Normal sinus rhythm Nonspecific T wave changes Abnormal ECG When compared to the previous EKG of No significant changes seen Referred By: Generic ED Physician Electronically Signed By:Tj Herzog
[2022-08-11 19:58] VITALS: BP 124/85; PULSE 75; RESP 17; TEMP 36.8; O2SAT 96
--- NOTE | 2022-08-11 20:30 | ED.NEUROSD ---
HPI - Neuro Symptoms/Deficit General Chief Complaint: Neuro Symptoms/Deficit Stated Complaint: Facial drooping Time Seen by Provider: 08/11/22 20:15 Source: patient, family and old records reviewed History of Present Illness HPI Narrative: Patient presents with a right facial droop. He states he felt like lip was itchy last night before going to bed. This morning when he woke up and went to brush his teeth he noticed that his face was Croke id. He had trouble swallowing his coffee and was drooling. He denies any weakness of his upper lower extremities. No difficulty swallowing other than the drooling issue. No chest pain palpitations or shortness of breath. He had a headache yesterday before going to bed. No headache now. He states the headache was like pressure behind his eye but resolved after ibuprofen. He is concerned about stroke because he has multiple risk factors including multiple family members including father, several brothers, knees who have all of stroke. He is nonsmoker but he has diabetes, hypertension, high cholesterol. No ataxia or difficulty ambulating. Related Data Home Medications Medication Instructions Recorded Confirmed fluoxetine 40 mg capsule 40 mg PO DAILY 03/28/20 05/04/22 hydroxyzine HCl 10 mg tablet 10 mg PO BEDTIME 03/28/20 05/04/22 sumatriptan succinate 50 mg tablet 50 mg PO DAILY PRN 03/28/20 05/04/22 blood sugar diagnostic #10 ea 05/06/20 05/04/22 gabapentin 600 mg tablet 600 mg PO DAILY 05/06/20 05/04/22 metformin 500 mg tablet 500 mg PO BID 05/06/20 05/04/22 clonazepam 1 mg tablet 1 mg PO BEDTIME PRN 06/17/21 05/04/22 empagliflozin 25 mg tablet 25 mg PO QAM 06/17/21 05/04/22 (Jardiance) ipratropium bromide 21 mcg (0.03 intranasal 06/17/21 05/04/22 %) nasal spray lisinopril 10 mg tablet 10 mg PO DAILY 06/17/21 05/04/22 tamsulosin 0.4 mg capsule 0.4 mg PO DAILY 06/17/21 05/04/22 atorvastatin 40 mg tablet 40 mg PO DAILY 12/25/21 05/04/22 cetirizine 10 mg tablet 10 mg PO DAILY PRN allergy symptoms 05/04/22 05/04/22 Previous Rx's Medication Instructions Recorded sildenafil 100 mg tablet 100 mg PO .PRN PRN sexual activity 06/13/20 30 days #30 tabs tadalafil 20 mg tablet 20 mg PO .PRN sexual activity 30 06/17/21 days #30 tabs sucralfate 1 gram tablet 1 g PO TID #90 tabs 04/16/22 omeprazole 40 mg capsule,delayed 40 mg PO DAILY #30 caps 04/29/22 release cholecalciferol (vitamin D3) 50 50 mcg PO DAILY 30 days #30 caps 05/04/22 mcg (2,000 unit) capsule cyclobenzaprine 10 mg tablet 10 mg PO TID PRN muscle spasm 5 07/13/22 days #15 tabs ketorolac 10 mg tablet 10 mg PO Q6H PRN pain 5 days #20 07/13/22 tabs prednisone 20 mg tablet 40 mg PO DAILY 5 days #10 tabs 07/13/22 Allergies Allergy/AdvReac Type Severity Reaction Status Date / Time codeine [CODEINE] Allergy Unknown TACHYCARDIA Verified 08/11/22 17:42 codeine AdvReac Unknown anaphylaxis Uncoded 05/04/22 15:11 Review of Systems Constitutional: Comments: No recent illness Eyes: Comments: No vision changes Cardiovascular: Comments: No chest pain or palpitations Respiratory: Comments: No dyspnea or cough Gastrointestinal: Comments: No nausea or vomiting or abdominal pain Musculoskeletal: Comments: No musculoskeletal complaints Neurologic: Comments: Right facial droop without other neurologic symptoms PMFSH Past Medical History Medical History Aortic valve calcification Erectile dysfunction Essential hypertension Multinodular thyroid Other and unspecified hyperlipidemia Type 2 diabetes mellitus with unspecified complications Vitamin D deficiency Surgical History H/O colonoscopy History of esophagogastroduodenoscopy (EGD) Family History Family History Father Stroke Brother Stroke Mother Diabetes Social History Social History Alcohol intake: former Patient Tobacco Use Status: Former Tobacco user Advance Directives: No Advance Directives Information Provided: Yes Physical Exam Vital Signs: Vital Signs: Last Vital Signs Temp 98.3 F 08/11/22 19:58 Pulse 75 08/11/22 19:58 Resp 17 08/11/22 19:58 BP 124/85 08/11/22 19:58 Pulse Ox 96 08/11/22 19:58 O2 Del Method Room Air 08/11/22 19:58 BMI result Body Mass Index 28.8 Const: Other: Awake and alert in no acute distress. HEENT: Other: No evidence of cranial trauma. Eyes: Other: Pupils equal round reactive to light. Vision is intact Neck: Other: Full range of motion Resp: Other: Clear and equal bilaterally without wheezes rales or rhonchi Cardio: Other: Regular rate and rhythm without murmurs rubs or gallops GI: Other: Soft nontender nondistended Skin: Other: Warm pink and dry without rash Neuro: Other: Patient with flattening of the right nasal labial fold and right-sided facial droop. Forehead is spared however. Family member present confirms this is a change from his baseline No extremity weakness. Section [employer] Worker strength is 5/5 bilaterally. No pronator drift on a 10 count. Lower extremities with 5/5 strength. No ataxia. No visual field deficits. Medications Administered Discontinued Medications Generic Name Dose Route Start Last Admin Trade Name Magdyq PRN Reason Stop Dose Admin Aspirin 325 mg 08/11/22 20:28 08/11/22 20:47 Aspirin Enteric Coated 325 Mg Tablet. PO 08/11/22 20:29 325 mg ONCE ONE Administration Iohexol 100 ml 08/11/22 21:11 08/11/22 21:12 Iohexol 350 Mg/Ml 100 Ml Infus..Btl IV 08/11/22 21:12 70 ml ONCE ONE Administration Medical Decision Making Medical Decision Making MDM Narrative: Patient with stroke scale of 1 in a last known well time of last evening prior to going to bed. Symptoms started prior to bedtime so he is approximately 22 hours out from discovery of symptoms. He has forehead sparing, so likely is not a cranial nerve 7 palsy and is more likely a central event. Stroke workup to be performed. 20:36. Workup shows normal CBC. Normal electrolytes. Normal creatinine. CT scan without contrast shows no intracranial hemorrhage or other obvious abnormality. Will do CT angiography of neck and brain. Anticipate hospitalization for further workup including MRI and Neurology consult. 21:52. CT scan shows no obvious large vessel occlusion. See report for other non acute abnormalities. Lab Data 08/11/22 17:42 08/11/22 17:42 Labs: Lab Results 08/11/22 08/11/22 08/11/22 Range/Units 17:42 17:42 17:42 WBC 5.6 (4.8-10.8) X10*3/uL RBC 6.10 H (4.60-5.80) X10*6/uL Hgb 17.3 (14.0-18.0) g/dl Hct 49.6 (42.0-52.0) % MCV 81.3 (80.0-98.0) fL MCH 28.4 (27.0-33.0) pg MCHC 34.9 (31.0-36.0) g/dl RDW 12.1 (11.0-16.0) % Plt Count 213 (160-400) X10*3/uL MPV 9.7 (9.4-12.4) fL Immature Gran % (Auto) 0.9 H (0.0-0.4) % Neut % (Auto) 52.7 (45-73) % Lymph % (Auto) 36.1 (20-40) % [place] % (Auto) 8.2 (2-11) % Eos % (Auto) 1.6 (0-4) % Baso % (Auto) 0.5 (0-2) % Lymph # (Auto) 2.0 (1.2-4.9) X10*3/uL [place] # (Auto) 0.5 (0.1-1.2) X10*3/uL Eos # (Auto) 0.1 (0.0-0.4) X10*3/uL Baso # (Auto) 0.0 (0.0-0.2) X10*3/uL Abs Immat Gran (auto) 0.05 H (0.00-0.03) X10*3/uL Absolute Neuts (auto) 3.0 (2.0-8.3) x10*3/uL Absolute Nucleated RBC 0.000 (0.0-0.012) X10*3/uL Nucleated RBC % (auto) 0.0 (0.0-0.2) /100WBC PT 10.3 (10.0-13.1) SEC INR 0.9 (0.9-1.1) APTT 32.1 (26.0-36.4) SEC Sodium 136 (135-145) mmol/L Potassium 4.1 (3.3-5.1) mmol/L Chloride 104 (96-108) mmol/L Carbon Dioxide 24 (22-29) mmol/L Anion Gap 12 (12-20) BUN 24 H (9-16) mg/dL Creatinine 1.10 (0.5-1.4) mg/dL Estim Creat Clear Calc 71.3 Estimated GFR > 60 Random Glucose 201 H (60-115) mg/dL Calcium 9.6 (8.4-10.2) mg/dL Magnesium 2.0 (1.6-2.6) mg/dL Total Bilirubin 0.5 (0.0-1.0) mg/dL Direct Bilirubin 0.1 (0.0-0.5) mg/dL AST 18 (5-37) U/L ALT 33 (0-40) U/L Alkaline Phosphatase 108 (39-117) U/L Total Protein 7.6 (6.5-8.0) g/dL Albumin 4.5 (3.5-5.0) g/dL Lipase 25 (8-78) U/L NIH Stroke Scale Time: 20:35 Level of Consciousness: Alert Level of Consciousness Questions: Answers both questions correctly Level of Consciousness Commands: Performs both tasks correctly Best Gaze: Normal Visual: No visual loss Facial Palsy: Minor paralyis Motor Arm (Right): No drift Motor Arm (Left): No drift Motor Leg (Right): No drift Motor Leg (Left): No drift Limb Ataxia: Absent Sensory: Normal Best Language: No aphasia Dysarthia: Normal Extinction and Inattention: No abnormality Score: 1 Discharge Plan Discharge Patient Disposition: Admitted As Inpatient
[2022-08-11] MEDS: Aspirin Enteric Coated 325 MG TABLET.DR PO (20:47)
--- NOTE | 2022-08-11 20:56 | PC.NURSE ---
this rn assumed care of pt @ 1957 from waiting room. pt placed on conveyor monitor. vss. pt at bedside. pt calm and cooperative. this rn performed bedside swallow eval. pt PASSED swallow eval. pt medicated according to may. this rn placed-20 g IV in R AC. pt tolerated well. pt awaiting to be taken to CT
[2022-08-11] MEDS: iohexoL 350 MG/ML 100 ML INFUS..BTL IV (21:12)
--- NOTE | 2022-08-11 22:09 | P.HPHOSP_ITS ---
History of Present Illness Date of Service: 08/11/22 Chief Complaint: facial droop 7-year-old male with past medical history of aortic valve calcification, HTN, type 2 diabetes, family history of CVA presents to the hospital with complaints of right mouth droop. Patient reports that it started in the morning, lasting 1 hour, noticed by his . He denies having any speech difficulty, no numbness tingling in the face, no numbness weakness or tingling in the lower extremity, patient reports that the day prior had a severe headache, he is also complaining of blurry vision on the right eye that has now resolved. He reports that his droopiness of the right face has also resolved. He denies any chest pain, no palpitations, no abdominal pain nausea or vomiting, no diarrhea constipation, no urinary symptoms and no lower extremity edema. On arrival to the ED patient hemodynamically stable with no significant abnormal vitals labs reviewed unremarkable head and neck CT angiogram shows 4 mm differential hypo enhancement within the posterior left paramedian pituitary gland may reflect a pituitary microadenoma Patient will be admitted for further management Review of Systems Review of Systems: Yes all other systems are reviewed and are negative [facility] Medical History Aortic valve calcification Erectile dysfunction Essential hypertension Multinodular thyroid Other and unspecified hyperlipidemia Type 2 diabetes mellitus with unspecified complications Vitamin D deficiency Family History Father Stroke Brother Stroke Mother Diabetes Surgical History H/O colonoscopy History of esophagogastroduodenoscopy (EGD) Social History Alcohol intake: former Patient Tobacco Use Status: Former Tobacco user Smoked in Last 30 Days: No Use of substances other than those prescribed or required for medical reasons: No Advance Directives: No Advance Directives Information Provided: Yes Meds Allergies Allergy/AdvReac Type Severity Reaction Status Date / Time codeine [CODEINE] Allergy Unknown TACHYCARDIA Verified 08/11/22 17:42 codeine AdvReac Unknown anaphylaxis Uncoded 05/04/22 15:11 Active Medications: Current Medications Acetaminophen (Acetaminophen 325 Mg Tablet) 650 mg PO Q6H PRN PRN Reason: Pain, Mild (Pain Scale 1-3) Aspirin (Aspirin Enteric Coated 81 Mg Tablet.Dr) 81 mg PO DAILY REPLACED BY [facility] Atorvastatin Calcium (Atorvastatin Calcium 80 Mg Tablet) 80 mg PO DAILY REPLACED BY [facility] Melatonin (Melatonin 3 Mg Tablet) 6 mg PO BEDTIME PRN PRN Reason: Insomnia Ondansetron HCl (Ondansetron Hcl 4 Mg/2 Ml Vial) 4 mg IVPUSH Q8H PRN PRN Reason: Nausea and Vomiting Sodium Chloride (0.9 % Sodium Chloride Flush 3 Ml Syringe) 3 ml IVFLUSH QSHIFT REPLACED BY [facility] Home Medications Medication Instructions Recorded Confirmed Last Taken Type fluoxetine 40 mg capsule 40 mg PO DAILY 03/28/20 08/11/22 Unknown History hydroxyzine HCl 10 mg tablet 10 mg PO BEDTIME PRN Anxiety 03/28/20 08/11/22 Unknown History blood sugar diagnostic #10 ea 05/06/20 05/04/22 Unknown History clonazepam 1 mg tablet 1 mg PO BEDTIME PRN Anxiety 06/17/21 08/11/22 Unknown History empagliflozin 25 mg tablet 25 mg PO DAILY 06/17/21 08/11/22 Unknown History (Jardiance) lisinopril 10 mg tablet 10 mg PO DAILY 06/17/21 08/11/22 Unknown History tamsulosin 0.4 mg capsule 0.4 mg PO DAILY 06/17/21 08/11/22 Unknown History atorvastatin 40 mg tablet 40 mg PO BEDTIME 12/25/21 08/11/22 Unknown History albuterol sulfate 90 mcg/actuation 2 puff inhalation Q4-6H PRN 08/11/22 08/11/22 Unknown History aerosol inhaler (Ventolin HFA) wheezing Physical Exam Vital Signs and Narrative: Vital Signs: Last Vital Signs Temp 98.3 F 08/11/22 19:58 Pulse 75 08/11/22 19:58 Resp 17 08/11/22 19:58 BP 124/85 08/11/22 19:58 Pulse Ox 96 08/11/22 19:58 O2 Del Method Room Air 08/11/22 19:58 BMI result Body Mass Index 28.8 Const: General: cooperative and no acute distress Ubaldo entation/consciousness: patient oriented x3 Eyes: General: appearance normal, both eyes and all related structures Resp: Effort & Inspection: normal respiratory effort Auscultation: clear to auscultation bilaterally Cardio: Rate: regular rate Rhythm: regular rhythm GI: Palpation (GI): Soft to palpation Auscultation: normal bowel sounds Skin: General skin exam: no rashes or lesions noted Neuro: Other: no neurological deficits, cranial nerves 2-12 intact, no visual deficit General: patient oriented x3 Cognition (Neuro): normal cognition Extrem: General: Yes normal to inspection and Yes no pedal edema Results Labs 08/11/22 17:42 08/11/22 17:42 Labs: Laboratory Results - last 24 hr 08/11/22 08/11/22 08/11/22 17:42 17:42 17:42 MCV 81.3 MCH 28.4 MCHC 34.9 RDW 12.1 Plt Count 213 MPV 9.7 Immature Gran % (Auto) 0.9 H Neut % (Auto) 52.7 Lymph % (Auto) 36.1 [place] % (Auto) 8.2 Eos % (Auto) 1.6 Baso % (Auto) 0.5 Lymph # (Auto) 2.0 [place] # (Auto) 0.5 Eos # (Auto) 0.1 Baso # (Auto) 0.0 Abs Immat Gran (auto) 0.05 H Absolute Neuts (auto) 3.0 Absolute Nucleated RBC 0.000 Nucleated RBC % (auto) 0.0 PT 10.3 INR 0.9 APTT 32.1 Anion Gap 12 Estim Creat Clear Calc 71.3 Estimated GFR > 60 Random Glucose 201 H Calcium 9.6 Magnesium 2.0 Total Bilirubin 0.5 Direct Bilirubin 0.1 AST 18 ALT 33 Alkaline Phosphatase 108 Total Protein 7.6 Albumin 4.5 Lipase 25 Imaging Radiologist's Impressions: Impressions Head CT 08/11/22 18:24 IMPRESSION: No acute intracranial pathology. Head/Neck CTA 08/11/22 21:21 IMPRESSION: 1. 4 mm differential hypoenhancement within the posterior left paramedian pituitary gland may reflect a pituitary microadenoma and can be further evaluated with sellar protocol contrast-enhanced MRI and correlated with pituitary function tests. 2. No acute arterial occlusion or hemodynamically significant stenosis within the head or neck. 3. 2 mm left posterior communicating artery infundibular origin versus aneurysm. 4. Elongated and ossified styloid processes can be correlated for signs of Larue syndrome. Assessment and Plan (1) TIA (transient ischemic attack): Status: Acute Plan 61-year-old male with past medical history of diabetes, hypertension, presents to the hospital with complaints of drooping of his right mouth concerning for CVA # acute TIA/CVA - risk factors including diabetes, hypertension, family history of CV including his father, brothers - head CT negative for acute finding, CTA head and neck shows for mm pituitary microadenoma with other abnormalities - will start him on aspirin, statin high-dose - MRI with and without contrast ordered - neurology consulted - will obtain lipid battery # hypertension - stable - continue home antihypertensives # diabetes - will add low-dose sliding scale insulin, hold oral antihyperglycemics DVT prophylaxis: Early ambulation Time Spent With Patient Time: Total time managing care of this patient today ____ minutes. Quality Stroke Does the patient have a stroke diagnosis?: No VTE Prior VTE?: No VTE Risk Level:: Medical - low VTE Device Contraindication: Treatment Not Indicated VTE Drug Contraindication: Treatment Not Indicated
[2022-08-11] MEDS: Aspirin Enteric Coated 81 MG TABLET.DR PO (22:19)
--- NOTE | 2022-08-11 22:30 | PC.NURSE ---
pt ambulatory independently to restroom. pt redirected to stretcher. pt requested sandwich at this time. this rn provided pt with sandwich. pt calm and cooperative
[2022-08-11 23:31] VITALS: BP 121/83; PULSE 78; RESP 14; TEMP 36.7; O2SAT 97
--- NOTE | 2022-08-12 00:23 | PC.NURSE ---
pt resting on stretcher at this time. pt calm and cooperative. HOB lowered. lights dimmed per pt request. pt denies pain at this time
[2022-08-12] MEDS: 0.9 % Sodium Chloride Flush 3 ML SYRINGE IVFLUSH ×3 (01:15→22:12)
--- NOTE | 2022-08-12 01:44 | PC.NURSE ---
pt requested clonazepam to help sleep.this rn reached out to hospitalist dr mnuoz for this order. rn awaiting orders from .
[2022-08-12] MEDS: clonazePAM 1 MG TABLET PO (03:24)
[2022-08-12] MEDS: Albuterol Sulfate 90 MCG 8 GM INHALER 2 PUFF INHALE (03:24)
--- NOTE | 2022-08-12 03:30 | PC.NURSE ---
pt medicated according to may. pt requested albuterol inhaler for wheezing. pt sat up in bed. spo2 98% RA.
[2022-08-12 04:09] VITALS: BP 109/74; PULSE 74; RESP 14; TEMP 36.6; O2SAT 95
[2022-08-12 06:21] LABS: Alanine Aminotransferase 31 U/L (0-40); Alkaline Phosphatase 89 U/L (39-117); Anion Gap 15 (12-20); Aspartate Amino Transferase 16 U/L (5-37); Bilirubin Total 0.6 mg/dL (0.0-1.0); Blood Urea Nitrogen 29 mg/dL (9-16); Carbon Dioxide 23 mmol/L (22-29); Chloride 103 mmol/L (96-108); Cholesterol 277 mg/dL; Creatinine Clr Calc Pharmacy 77.7; Estimated Glomerular Filt Rate > 60; Glucose Random 146 mg/dL (60-115); HDL Cholesterol 40 mg/dL; LDL Cholesterol Calculated 206 mg/dl; Potassium 4.1 mmol/L (3.3-5.1); Sodium 136 mmol/L (135-145); Total Protein 6.7 g/dL (6.5-8.0); Triglycerides 159 mg/dL
[2022-08-12 07:10] LABS: Glucose, Whole Blood 155 mg/dL (60-115)
[2022-08-12] MEDS: Insulin Lispro 100 UNIT/ML 3 ML VIAL SUBCUT ×3 (07:23→22:07)
[2022-08-12 07:53] VITALS: BP 128/83; PULSE 86; RESP 20; TEMP 36.3; O2SAT 95
[2022-08-12] MEDS: lisinopriL 10 MG TABLET PO (09:17)
[2022-08-12] MEDS: Omeprazole 40 MG CAPSULE.DR PO (09:17)
[2022-08-12] MEDS: Tamsulosin HCL 0.4 MG CAPSULE PO (09:17)
[2022-08-12] MEDS: Atorvastatin Calcium 80 MG TABLET PO (09:17)
[2022-08-12] MEDS: Cholecalciferol (Vitamin D3) 25 MCG TABLET 50 MCG PO (09:17)
[2022-08-12] MEDS: Aspirin Enteric Coated 81 MG TABLET.DR PO (09:17)
[2022-08-12] MEDS: FLUoxetine HCl 20 MG CAPSULE 40 MG PO (09:17)
--- NOTE | 2022-08-12 11:21 | P.CNNE_ITS ---
History of Present Illness Data of Consult Service Date: 08/12/22 Primary Care Provider: [facility] Reason for consult: Facial asymmetry 61 years old man with hypertension came to hospital with new onset of facial asymmetry. He said that he woke up and noted that his face was twisted. There was no speaking or swallowing if she. There was no pain or headache. He denied any difficulty speaking or any arm or leg weakness. Review of Systems Review of Systems: No recent cold or flu-like illness PMFSH Past Medical History Medical History Aortic valve calcification Erectile dysfunction Essential hypertension Multinodular thyroid Other and unspecified hyperlipidemia Type 2 diabetes mellitus with unspecified complications Vitamin D deficiency Family History Family History Father Stroke Brother Stroke Mother Diabetes Surgical History Surgical History H/O colonoscopy History of esophagogastroduodenoscopy (EGD) Social History Social History Alcohol intake: former Patient Tobacco Use Status: Former Tobacco user Smoked in Last 30 Days: No Use of substances other than those prescribed or required for medical reasons: No Advance Directives: No Advance Directives Information Provided: Yes Meds Allergies Allergy/AdvReac Type Severity Reaction Status Date / Time codeine [CODEINE] Allergy Unknown TACHYCARDIA Verified 08/11/22 17:42 codeine AdvReac Unknown anaphylaxis Uncoded 05/04/22 15:11 Active Medications: Current Medications Acetaminophen (Acetaminophen 325 Mg Tablet) 650 mg PO Q6H PRN PRN Reason: Pain, Mild (Pain Scale 1-3) Albuterol Sulfate (Albuterol Sulfate 90 Mcg 8 Gm Inhaler) 2 puff INHALE Q4H PRN PRN Reason: wheezing Last Admin: 08/12/22 03:24 Dose: 2 puff Aspirin (Aspirin Enteric Coated 81 Mg Tablet.) 81 mg PO DAILY [facility] Last Admin: 08/12/22 09:17 Dose: 81 mg Atorvastatin Calcium (Atorvastatin Calcium 80 Mg Tablet) 80 mg PO DAILY [facility] Last Admin: 08/12/22 09:17 Dose: 80 mg Atorvastatin Calcium (Atorvastatin Calcium 40 Mg Tablet) 40 mg PO BEDTIME [facility] Clonazepam (Clonazepam 1 Mg Tablet) 1 mg PO BEDTIME PRN PRN Reason: Anxiety Last Admin: 08/12/22 03:24 Dose: 1 mg Fluoxetine HCl (Fluoxetine Hcl 20 Mg Capsule) 40 mg PO DAILY [facility] Last Admin: 08/12/22 09:17 Dose: 40 mg Glucose (Glucose Gel 15 Gm Gel..Gram.) 15 gm PO Q15M PRN; Protocol PRN Reason: per Hypoglycemia Standing Ord. Hydroxyzine HCl (Hydroxyzine Hcl 10 Mg Tablet) 10 mg PO BEDTIME PRN PRN Reason: Anxiety Dextrose (D10) 250 mls @ 750 mls/hr IV Q15M PRN; Protocol PRN Reason: per Hypoglycemia Standing Ord. Insulin Human Lispro (Insulin Lispro 100 Unit/Ml 3 Ml Vial) 0 unit SUBCUT QIDACHS [facility]; Protocol Last Admin: 08/12/22 07:23 Dose: 2 unit Lisinopril (Lisinopril 10 Mg Tablet) 10 mg PO DAILY [facility]; Protocol Last Admin: 08/12/22 09:17 Dose: 10 mg Melatonin (Melatonin 3 Mg Tablet) 6 mg PO BEDTIME PRN PRN Reason: Insomnia Omeprazole (Omeprazole 40 Mg Capsule.Dr) 40 mg PO DAILY [facility] Last Admin: 08/12/22 09:17 Dose: 40 mg Ondansetron HCl (Ondansetron Hcl 4 Mg/2 Ml Vial) 4 mg IVPUSH Q8H PRN PRN Reason: Nausea and Vomiting Sodium Chloride (0.9 % Sodium Chloride Flush 3 Ml Syringe) 3 ml IVFLUSH QSHIFT [facility] Last Admin: 08/12/22 09:18 Dose: 3 ml Tamsulosin HCl (Tamsulosin Hcl 0.4 Mg Capsule) 0.4 mg PO DAILY [facility] Last Admin: 08/12/22 09:17 Dose: 0.4 mg Vitamin D (Cholecalciferol (Vitamin D3) 25 Mcg Tablet) 50 mcg PO DAILY [facility] Last Admin: 08/12/22 09:17 Dose: 50 mcg Home Medications Medication Instructions Recorded Confirmed Last Taken Type fluoxetine 40 mg capsule 40 mg PO DAILY 03/28/20 08/11/22 Unknown History hydroxyzine HCl 10 mg tablet 10 mg PO BEDTIME PRN Anxiety 03/28/20 08/11/22 Unknown History blood sugar diagnostic #10 ea 05/06/20 05/04/22 Unknown History clonazepam 1 mg tablet 1 mg PO BEDTIME PRN Anxiety 06/17/21 08/11/22 Unknown History empagliflozin 25 mg tablet 25 mg PO DAILY 06/17/21 08/11/22 Unknown History (Jardiance) lisinopril 10 mg tablet 10 mg PO DAILY 06/17/21 08/11/22 Unknown History tamsulosin 0.4 mg capsule 0.4 mg PO DAILY 06/17/21 08/11/22 Unknown History atorvastatin 40 mg tablet 40 mg PO BEDTIME 12/25/21 08/11/22 Unknown History albuterol sulfate 90 mcg/actuation 2 puff inhalation Q4-6H PRN 08/11/22 08/11/22 Unknown History aerosol inhaler (Ventolin HFA) wheezing Physical Exam Vital Signs: Vital Signs: Last Vital Signs Temp 97.4 F 08/12/22 07:53 Pulse 86 08/12/22 07:53 Resp 20 08/12/22 07:53 BP 128/83 08/12/22 07:53 Pulse Ox 95 08/12/22 07:53 O2 Del Method Room Air 08/12/22 07:53 BMI result Body Mass Index 28.8 Neuro: Other: He is alert and awake with normal spontaneity of speech fluency comprehension and affect. There is mild right-sided central type facial weakness. There is no pronator drift. There is no sensory or visual extinction. Deep tendon reflexes are absent with flexor plantars per Results Labs 08/11/22 17:42 08/12/22 05:54 Labs: Short CBC 08/11/22 Range/Units 17:42 WBC 5.6 (4.8-10.8) X10*3/uL Hgb 17.3 (14.0-18.0) g/dl Hct 49.6 (42.0-52.0) % Plt Count 213 (160-400) X10*3/uL BMP 08/11/22 08/12/22 17:42 05:54 Sodium 136 136 Potassium 4.1 4.1 Chloride 104 103 Carbon Dioxide 24 23 BUN 24 H 29 H Creatinine 1.10 1.01 Calcium 9.6 9.0 D Liver Function 08/11/22 08/12/22 Range/Units 17:42 05:54 Total Bilirubin 0.5 0.6 (0.0-1.0) mg/dL Direct Bilirubin 0.1 (0.0-0.5) mg/dL AST 18 16 (5-37) U/L ALT 33 31 (0-40) U/L Alkaline Phosphatase 108 89 (39-117) U/L Albumin 4.5 4.0 (3.5-5.0) g/dL Noncontrast head CT did not reveal any significant abnormality. CTA suggested a pituitary micro adenoma, and a tiny PCOM aneurysm. Assessment and Plan (1) Facial asymmetry: Status: Acute New sudden onset of facial asymmetry that was suggestive of a small ischemic infarction. Mckeon's palsy was another possibility. This type of lesion may not be seen with CT scan and I suggest a noncontrast MRI of brain for definition. Otherwise mainstay of management is control of vascular risk factors and anti-platelet agent. Time Spent With Patient Time: Total time managing care of this patient today ____ minutes. Procedures Date of Service Date of Service: 08/12/22
[2022-08-12 11:24] LABS: Glucose, Whole Blood 166 mg/dL (60-115)
--- NOTE | 2022-08-12 11:50 | MHC.CM.PN ---
MELISSA 08/12/22, EMR REVIEWED, CM MET W/PT VIA P[employer]RO[employer], PT REPORTS HE LIVES A LONE AND HIS SPOUSE STAYS WITH HIM AT TIMES, PT IS INDEP W/ALL CARE, DOES USE A WALKING STICK (GIVEN A CANE BY P.T.) AND A GLUCOMETER/TEST STRIPS, CPAP W/[facility] AND DOES NOT HAVE MASK/TUBING AT HOME, PT DENIES HOME SERVICES AND PER PT EVAL PT RECOMMENDED OUTPT SERVICES AND PT WILL DRIVE HIMSELF TO [facility], PER OT PT DOES NOT NEED SERVICES. PT VERIFIES HIS PCP IS AT [facility] HOWEVER THEY ASSIGNED HIM A NEW PCP AND PT DOES NOT KNOW NAME, CAR [facility] AND HCP IS HIS SISTER SARINA ELIZONDO AND LEYLA ALVAREZ IS ALTERNATE, NUMBERS ON FILE AND COPY REQUESTED. D/C PLAN: HOME W/OUTPT PT AT [facility], FAMILY FOR TRANSPORT.
[2022-08-12 16:00] VITALS: BP 111/76; PULSE 82; RESP 18; TEMP 36.8; O2SAT 95
--- NOTE | 2022-08-12 16:27 | P.PNIM_ITS ---
Subjective Subjective Date of Service: 08/13/22 Interval History: patient admitted for right facial droop, that started in the morning of admission, patient continued to have right facial droop otherwise denies any other associated complaints of speech impairment unsteady gait, denies weakness numbness of lower or upper extremity, right eye blurry vision resolved, patient denies associated URI symptoms, denies nausea vomiting abdominal pain, tolerating diet no dysphagia or cough with eating. Review of Systems Review of Systems: Yes all other systems are reviewed and are negative Physical Exam Vital Signs: Vital Signs: Last Vital Signs Temp 98.2 F 08/12/22 16:00 Pulse 82 08/12/22 16:00 Resp 18 08/12/22 16:00 BP 111/76 08/12/22 16:00 Pulse Ox 95 08/12/22 16:00 O2 Del Method Room Air 08/12/22 16:00 BMI result Body Mass Index 28.8 Const: Other: General Awake alert x3, resting comfortably in no acute distress. Neck is supple no JVD. CVS regular rate rhythm, Respiratory lungs clear to auscultation, no respiratory distress, no wheeze, no rhonchi. Gastrointestinal abdomen soft, nontender, bowel sounds audible, no guarding , no rigidity. Extremities no edema. Neuro right facial droop, clear speech no sensory or motor deficit Skin no rash psych appropriate affect Objective Data Active Medications Acetaminophen (Acetaminophen 325 Mg Tablet) 650 mg PO Q6H PRN PRN Reason: Pain, Mild (Pain Scale 1-3) Albuterol Sulfate (Albuterol Sulfate 90 Mcg 8 Gm Inhaler) 2 puff INHALE Q4H PRN PRN Reason: wheezing Last Admin: 08/12/22 03:24 Dose: 2 puff Documented By: CARLA Aspirin (Aspirin Enteric Coated 81 Mg Tablet.) 81 mg PO DAILY [facility] Last Admin: 08/12/22 09:17 Dose: 81 mg Documented By: RIANNA Atorvastatin Calcium (Atorvastatin Calcium 80 Mg Tablet) 80 mg PO DAILY [facility] Last Admin: 08/12/22 09:17 Dose: 80 mg Documented By: RIANNA Atorvastatin Calcium (Atorvastatin Calcium 40 Mg Tablet) 40 mg PO BEDTIME [facility] Clonazepam (Clonazepam 1 Mg Tablet) 1 mg PO BEDTIME PRN PRN Reason: Anxiety Last Admin: 08/12/22 03:24 Dose: 1 mg Documented By: CARLA Fluoxetine HCl (Fluoxetine Hcl 20 Mg Capsule) 40 mg PO DAILY [facility] Last Admin: 08/12/22 09:17 Dose: 40 mg Documented By: RIANNA Glucose (Glucose Gel 15 Gm Gel..Gram.) 15 gm PO Q15M PRN; Protocol PRN Reason: per Hypoglycemia Standing Ord. Hydroxyzine HCl (Hydroxyzine Hcl 10 Mg Tablet) 10 mg PO BEDTIME PRN PRN Reason: Anxiety Dextrose (D10) 250 mls @ 750 mls/hr IV Q15M PRN; Protocol PRN Reason: per Hypoglycemia Standing Ord. Insulin Human Lispro (Insulin Lispro 100 Unit/Ml 3 Ml Vial) 0 unit SUBCUT QIDACHS [facility]; Protocol Last Admin: 08/12/22 11:50 Dose: 2 unit Documented By: RIANNA Lisinopril (Lisinopril 10 Mg Tablet) 10 mg PO DAILY [facility]; Protocol Last Admin: 08/12/22 09:17 Dose: 10 mg Documented By: RIANNA Melatonin (Melatonin 3 Mg Tablet) 6 mg PO BEDTIME PRN PRN Reason: Insomnia Omeprazole (Omeprazole 40 Mg Capsule.) 40 mg PO DAILY [facility] Last Admin: 08/12/22 09:17 Dose: 40 mg Documented By: RIANNA Ondansetron HCl (Ondansetron Hcl 4 Mg/2 Ml Vial) 4 mg IVPUSH Q8H PRN PRN Reason: Nausea and Vomiting Sodium Chloride (0.9 % Sodium Chloride Flush 3 Ml Syringe) 3 ml IVFLUSH QSHIFT [facility] Last Admin: 08/12/22 09:18 Dose: 3 ml Documented By: RIANNA Tamsulosin HCl (Tamsulosin Hcl 0.4 Mg Capsule) 0.4 mg PO DAILY [facility] Last Admin: 08/12/22 09:17 Dose: 0.4 mg Documented By: RIANNA Vitamin D (Cholecalciferol (Vitamin D3) 25 Mcg Tablet) 50 mcg PO DAILY [facility] Last Admin: 08/12/22 09:17 Dose: 50 mcg Documented By: RIANNA Labs 08/11/22 17:42 08/12/22 05:54 Labs: Laboratory Results - last 24 hr 08/11/22 08/11/22 08/11/22 17:42 17:42 17:42 MCV 81.3 MCH 28.4 MCHC 34.9 RDW 12.1 Plt Count 213 MPV 9.7 Immature Gran % (Auto) 0.9 H Neut % (Auto) 52.7 Lymph % (Auto) 36.1 Hamilton % (Auto) 8.2 Eos % (Auto) 1.6 Baso % (Auto) 0.5 Lymph # (Auto) 2.0 Hamilton # (Auto) 0.5 Eos # (Auto) 0.1 Baso # (Auto) 0.0 Abs Immat Gran (auto) 0.05 H Absolute Neuts (auto) 3.0 Absolute Nucleated RBC 0.000 Nucleated RBC % (auto) 0.0 PT 10.3 INR 0.9 APTT 32.1 Anion Gap 12 Estim Creat Clear Calc 71.3 Estimated GFR > 60 POC Glucose Random Glucose 201 H Calcium 9.6 Magnesium 2.0 Total Bilirubin 0.5 Direct Bilirubin 0.1 AST 18 ALT 33 Alkaline Phosphatase 108 Total Protein 7.6 Albumin 4.5 Triglycerides Cholesterol LDL Cholesterol, Calc HDL Cholesterol Lipase 25 08/12/22 08/12/22 08/12/22 05:54 06:58 11:19 MCV MCH MCHC RDW Plt Count MPV Immature Gran % (Auto) Neut % (Auto) Lymph % (Auto) Hamilton % (Auto) Eos % (Auto) Baso % (Auto) Lymph # (Auto) Hamilton # (Auto) Eos # (Auto) Baso # (Auto) Abs Immat Gran (auto) Absolute Neuts (auto) Absolute Nucleated RBC Nucleated RBC % (auto) PT INR APTT Anion Gap 15 Estim Creat Clear Calc 77.7 Estimated GFR > 60 POC Glucose 155 H 166 H Random Glucose 146 H Calcium 9.0 D Magnesium Total Bilirubin 0.6 Direct Bilirubin AST 16 ALT 31 Alkaline Phosphatase 89 Total Protein 6.7 Albumin 4.0 Triglycerides 159 Cholesterol 277 LDL Cholesterol, Calc 206 HDL Cholesterol 40 Lipase Assessment and Plan (1) Facial asymmetry: Status: Acute (2) Stroke: Status: Acute Plan 61-year-old male with past medical history of diabetes, hypertension, presents to the hospital with complaints of drooping of his right mouth concerning for CVA #? right facial droop as per patient he had headache, as well as numbness tingling left upper extremity, numbness around mouth, all these symptoms resolved but had persistent right facial droop that also has resolved, denies URI symptoms, no earache. multiple CVA risk factors including diabetes, hypertension, hyperlipidemia and family history of CVA including his father, brothers ? head CT negative for acute finding, CTA head and neck shows for mm pi tuitary microadenoma with other abnormalities, LDL 206 with a total cholesterol of 277, blood sugar between 155-200 continue on aspirin, increase dose of Lipitor to 80 mg recommend good blood sugar and blood pressure control seen by PT they recommend outpatient PT 1-2 times per week for gait training, stair training and dynamic balance training./ OT Recommend no further intervention. seen by Dr. Licea he recommended MRI study, that showed no acute stroke, but showed chronic microvascular ischemic changes and diffuse volume loss, will discuss further treatment plan with Neurology with question of microinfarction versus Mckeon's palsy. #? hypertension -? stable,-? continue home antihypertensives #? diabetes mellitus : elevated blood sugars, recommend diabetic diet, insulin sliding scale and Jardiance. ?DVT prophylaxis:lovenox code status full code. admitted under observation.? Time Spent With Patient Time: Total time managing care of this patient today ____ minutes. Quality Stroke Does the patient have a stroke diagnosis?: No VTE Prior VTE?: No VTE Risk Level:: Medical - low VTE Device Contraindication: Treatment Not Indicated VTE Drug Contraindication: Treatment Not Indicated
[2022-08-12 16:47] LABS: Glucose, Whole Blood 140 mg/dL (60-115)
[2022-08-12] MEDS: Enoxaparin Sodium 40 MG/0.4 ML SYRINGE SUBCUT (17:41)
[2022-08-12 19:28] VITALS: BP 113/73; PULSE 94; RESP 17; TEMP 36.8; O2SAT 93
[2022-08-12 20:04] LABS: Glucose, Whole Blood 206 mg/dL (60-115)
[2022-08-12] MEDS: Atorvastatin Calcium 40 MG TABLET PO (22:07)
[2022-08-13] VITALS: BP 119/83; PULSE 71; RESP 18; TEMP 36.6; O2SAT 98
[2022-08-13 03:41] VITALS: BP 118/76; PULSE 76; RESP 18; TEMP 36.1; O2SAT 96
[2022-08-13 07:21] VITALS: BP 128/81; PULSE 90; RESP 20; TEMP 36.2; O2SAT 94
[2022-08-13 07:22] LABS: Glucose, Whole Blood 172 mg/dL (60-115)
[2022-08-13] MEDS: FLUoxetine HCl 20 MG CAPSULE 40 MG PO (08:57)
[2022-08-13] MEDS: Aspirin Enteric Coated 81 MG TABLET.DR PO (08:57)
[2022-08-13] MEDS: Atorvastatin Calcium 80 MG TABLET PO (08:57)
[2022-08-13] MEDS: Cholecalciferol (Vitamin D3) 25 MCG TABLET 50 MCG PO (08:57)
[2022-08-13] MEDS: Omeprazole 40 MG CAPSULE.DR PO (08:57)
[2022-08-13] MEDS: Insulin Lispro 100 UNIT/ML 3 ML VIAL SUBCUT ×2 (08:58→12:07)
[2022-08-13] MEDS: Tamsulosin HCL 0.4 MG CAPSULE PO (08:58)
[2022-08-13] MEDS: lisinopriL 10 MG TABLET PO (08:58)
[2022-08-13] MEDS: Acetaminophen 325 MG TABLET 650 MG PO (09:02)
[2022-08-13] MEDS: 0.9 % Sodium Chloride Flush 3 ML SYRINGE IVFLUSH (09:03)
--- NOTE | 2022-08-13 11:18 | PM.DS ---
DS: Providers Provider Date of Service: 08/13/22 Date of admission: 08/11/22 22:03 Primary care physician: [facility] Consults: 08/11/22 22:05 Consult to Neurology Routine Consulting Provider: [facility] Reason for consultation: TIA/Stroke Has provider been notified: No DS: Diagnosis Discharge Diagnosis (1) Facial asymmetry: Status: Acute (2) Stroke: Status: Acute DS: Summary Hospital Course Hospital Course: Date of Service: 08/11/22 Chief Complaint:? facial droop ?7-year-old male with past medical history of aortic valve calcification, HTN, type 2 diabetes, family history of CVA presents to the hospital with complaints of right? mouth droop.? Patient reports that it started in the morning, lasting 1 hour, noticed by his .? He denies having any speech difficulty, no numbness tingling in the face, no numbness weakness or tingling in the lower extremity,? patient reports that the day prior had a severe headache, he is also complaining of blurry vision on the right eye that has now resolved.? He reports that his droopiness of the right face has also resolved.? He denies any chest pain, no palpitations, no abdominal pain nausea or vomiting, no diarrhea constipation, no urinary symptoms and no lower extremity edema.? On arrival to the ED patient hemodynamically stable with no significant abnormal vitals ?labs reviewed unremarkable ?head and neck CT angiogram shows 4 mm differential hypo enhancement within the posterior left paramedian pituitary gland may reflect a pituitary microadenoma Patient will be admitted for further management. hospital course: 61-year-old male with past medical history of diabetes, hypertension, presents to the hospital with complaints of drooping of his right mouth concerning for CVA #? patient presented with right facial droop , headache, as well as numbness tingling left upper extremity, numbness around mouth, all these symptoms resolved but had persistent right facial droop,head CT negative for acute finding, CTA head and neck shows 4 mm pituitary microadenoma with no other abnormalities, LDL 206 with a total cholesterol of 277, blood sugar between 155-200, patient noted to have multiple CVA risk factors including diabetes, hypertension,?hyperlipidemia and family history of CVA including his father, brothers ?? ? head , patient treated with aspirin,?Lipitor 80 mg,seen by PT? they recommend outpatient PT 1-2 times per week for gait training, stair training and dynamic balance training./ OT? Recommend no further intervention, seen by neurologist Dr. Licea he recommended MRI study, that showed no acute stroke, but showed chronic microvascular ischemic changes and diffuse volume loss, Dr. Licea felt patient had micro infarction therefore recommended strict blood sugar and cholesterol control. # CTA head and neck showed 4 mm hypoenhancement within the posterior left para median pituitary gland, may reflect acute pituitary micro adenoma, sella protocol contrast enhanced MRI recommended for further evaluation, recommend outpatient MRI to be arranged by PCP. ? #? hypertension -? stable,-? continue home antihypertensives. #? diabetes mellitus :? elevated blood sugars, recommend diabetic diet, and Jardiance. Time Spent with Patient Time attestation: Total time managing care of this patient today ____ minutes. Discharge coordination time: Greater than 30 minutes Quality: Safe Use of Opioids Does Pt have an Active Cancer Diagnosis on the Problem List?: No Quality: Stroke Does the patient have a stroke diagnosis?: No Physical Exam Vital Signs: Vital Signs: Last Vital Signs Temp 97.2 F 08/13/22 07:21 Pulse 90 08/13/22 07:21 Resp 20 08/13/22 07:21 BP 128/81 08/13/22 07:21 Pulse Ox 94 08/13/22 07:21 O2 Del Method Room Air 08/13/22 07:21 BMI result Body Mass Index 28.8 Const: Other: General ? Awake alert x3, resting comfortably in no acute distress.? Neck is supple no JVD. CVS? regular rate rhythm, Respiratory lungs clear to auscultation, no respiratory distress, no wheeze, no rhonchi. Gastrointestinal abdomen soft, nontender, bowel sounds audible, no guarding , no rigidity. Extremities no? edema. Neuro? right facial droop, clear speech no sensory or motor deficit Skin no rash psych appropriate affect DS: Data Data Completed and Pending Labs on day of discharge: Laboratory Results - last 24 hr 08/12/22 08/12/22 08/12/22 11:19 16:43 19:57 POC Glucose 166 H 140 H 206 H 08/13/22 07:01 POC Glucose 172 H Discharge Plan Discharge Patient Disposition: Home, Self-Care Discharge Diagnosis: Acute CVA Referrals: [facility] [place] [facility] [Other] - 3-5 Days (OUTPATIENT PHYSICAL THERAPY) [facility] [Primary Care Provider] - 1 Week Discharge Medications: New aspirin 81 mg Tablet,Delayed Release (Dr/Ec) 81 mg PO DAILY Qty: 30 0RF atorvastatin 80 mg Tablet 80 mg PO DAILY Qty: 30 0RF Continued albuterol sulfate [Ventolin HFA] 90 mcg/actuation HFA aerosol inhaler 2 puff inhalation Q4-6H PRN (Reason: wheezing) fluoxetine 40 mg capsule 40 mg PO DAILY hydroxyzine HCl 10 mg tablet 10 mg PO BEDTIME PRN (Reason: Anxiety) clonazepam 1 mg tablet 1 mg PO BEDTIME PRN (Reason: Anxiety) Jardiance 25 mg tablet 25 mg PO DAILY tamsulosin 0.4 mg capsule 0.4 mg PO DAILY lisinopril 10 mg tablet 10 mg PO DAILY (DME) blood sugar diagnostic Strip See Rx Instructions Not Applicable DAILY Qty: 10 Rx Instructions: As directed omeprazole 40 mg capsule,delayed release(DR/EC) 40 mg PO DAILY Qty: 30 0RF cholecalciferol (vitamin D3) 50 mcg (2,000 unit) capsule 50 mcg PO DAILY 30 Days Qty: 30 11RF Discontinued atorvastatin 40 mg tablet 40 mg PO BEDTIME Discharge Orders: Discharge Order (Routine); Ordered 08/13/22 Ordered By: Vargas Maria Diet: Diabetic diet Activity on Discharge: As tolerated Stand Alone Forms: Patient Portal Discharge page Care Plan Goals: had a small microinfarction, strongly recommend to follow low-calorie diabetic and low-fat diet take aspirin 81 mg daily dose of Lipitor increased to 80 mg by mouth daily CTA head and neck showed 4 mm hypoenhancement within the posterior left para median pituitary gland, may reflect acute pituitary micro adenoma, sella protocol contrast enhanced MRI recommended for further evaluation Health Concerns: diabetes/ hypercholesterolemia strongly recommend to follow diabetic and low-cholesterol diet. Plan of Treatment: outpatient follow-up with primary care physician call for appointment. arrange for outpatient sella protocol contrast enhanced MRI for further evaluation of pituitary abnormality. Assessment: as above
--- NOTE | 2022-08-13 11:25 | MHC.CM.PN ---
PT MEDICALLY CLEARED FOR D/C HOME W/OUPT PT AT [facility], PT TO ARRANGE TRANSPORT
[2022-08-13 11:27] LABS: Glucose, Whole Blood 155 mg/dL (60-115)
[2022-08-13 11:39] VITALS: BP 134/79; PULSE 90; RESP 20; TEMP 36.4; O2SAT 96
--- NOTE | 2022-08-13 12:33 | PC.NURSE ---
Patient is A@OX4 speech clear, smile symmetric, tongue midline. Mild right nasolabial fold flatness. HALEY to command 5/5 sensation intact, +pedal pulses bilaterally no edema noted. c/o mild headache this am 5/10 from top to back of head resolved after Tylenol given. Denies dizziness or vision changes pupils PERRL 2B. Lung sound clear denies shortness of breath or chest pain, NSR on tele. BS+X4 abdomen soft non-tender denies nausea/vomiting. OOB with cane steady gait. Plan to discharge home IV removed
--- NOTE | 2022-08-13 13:23 | MHC.CM.PN ---
PT WITH [facility] FOR CPAP AND SUPPLIES D/T PT NOT HAVING ANY AT HOME, [facility] RE[facility] REPORTS PT NEEDS A NEW SCRIPT FROM PCP FOR SUPPLIES ANNUALLY AND HIS PRESCRIPTION HAS , CM ALSO CONTACTED PT'S PCP SYD BUSTAMANTE'S OFFICE AT [facility] AND REQUEST FOR SCRIPT TO BE SENT TO [facility].
[2022-08-13 17:13] LABS: Lyme Abs Screen <0.90 index
== END 2022-08-13 13:05 | disposition home or self-care (01) ==
LOC: HO.ED 21:13 → HO.EDOVER 22:22 → HO.IMC 08-12 06:37
PROVIDERS: Physician Assistant Medical; Admitting Provider Internal Medicine; Emergency Provider Emergency Medicine; PCP Nurse Practitioner Primary Care; Visit Provider Hospitalist
DX: I63.9 Cerebral infarction, unspecified (principal); R29.810 Facial weakness; I10 Essential (primary) hypertension; R29.701 NIHSS score 1; E78.5 Hyperlipidemia, unspecified; E55.9 Vitamin D deficiency, unspecified; E11.9 Type 2 diabetes mellitus without complications; E23.7 Disorder of pituitary gland, unspecified
CPT/HCPCS: 36415; 70450; 70496; 70498; 70551; 80048; 80053; 80061; 80076; 82947; 83690; 83735; 85025; 85610; 85730; 86617; 86618; 93005; 96372; 97112; 97161; 97165; 99222; 99285; J1650; Q9967

== ENCOUNTER → 2022-08-14 11:39 | Outpatient (BNVA) | payer MEDICARE, MEDICAID, SELFPAY | PROVIDERS: PCP Nurse Practitioner Primary Care; Visit Provider Urology | DX: E11.69 Type 2 diabetes mellitus with other specified complication (principal); N52.1 Erectile dysfunction due to diseases classified elsewhere | CPT/HCPCS: Q3014 ==

== ENCOUNTER 2022-08-19 08:50 | Outpatient (REF) | payer MEDICARE, MEDICAID, SELFPAY ==
[2022-08-19 11:16] LABS: MANUAL DIFF FLAG NO
[2022-08-19 11:32] LABS: Basophils Percent Auto 0.4 % (0-2); Eosinophils Absolute Auto 0.1 X10*3/uL (0.0-0.4); Eosinophils Percent Auto 2.5 % (0-4); Hematocrit 49.3 % (42.0-52.0); Hemoglobin 17.1 g/dl (14.0-18.0); Imm Gran Abs Auto 0.01 X10*3/uL (0.00-0.03); Imm Gran Pct Auto 0.2 % (0.0-0.4); Lymphocytes Absolute Auto 1.8 X10*3/uL (1.2-4.9); Lymphocytes Percent Auto 31.3 % (20-40); Mean Corpuscular HGB Conc 34.7 g/dl (31.0-36.0); Mean Corpuscular Hemoglobin 28.5 pg (27.0-33.0); Mean Corpuscular Volume 82.3 fL (80.0-98.0); Mean Platelet Volume 10.3 fL (9.4-12.4); Monocytes Absolute Auto 0.4 X10*3/uL (0.1-1.2); Monocytes Percent Auto 7.4 % (2-11); Neutrophils Absolute Auto 3.3 x10*3/uL (2.0-8.3); Neutrophils Percent Auto 58.2 % (45-73); Platelet Count 197 X10*3/uL (160-400); Red Blood Count 5.99 X10*6/uL (4.60-5.80); Red Cell Distribution Width 12.5 % (11.0-16.0); White Blood Count 5.7 X10*3/uL (4.8-10.8)
[2022-08-19 11:51] LABS: Estimated Average Glucose 163 mg/dL; Hemoglobin A1c % 7.3 %
[2022-08-19 12:34] LABS: Creatinine Urine 89.78 mg/dL; Microalbum/Creatinine Ratio Ur 65.7 ug/mg cr
[2022-08-19 12:49] LABS: Alanine Aminotransferase 35 U/L (0-40); Albumin Level 4.4 g/dL (3.5-5.0); Alkaline Phosphatase 106 U/L (39-117); Anion Gap 15 (12-20); Aspartate Amino Transferase 19 U/L (5-37); Bilirubin Total 0.6 mg/dL (0.0-1.0); Blood Urea Nitrogen 22 mg/dL (9-16); Calcium 9.6 mg/dL (8.4-10.2); Carbon Dioxide 26 mmol/L (22-29); Chloride 104 mmol/L (96-108); Cholesterol 186 mg/dL; Estimated Glomerular Filt Rate > 60; Glucose Random 144 mg/dL (60-115); HDL Cholesterol 39 mg/dL; LDL Cholesterol Calculated 129 mg/dl; Potassium 4.1 mmol/L (3.3-5.1); Sodium 141 mmol/L (135-145); Total Protein 7.5 g/dL (6.5-8.0); Triglycerides 91 mg/dL
[2022-08-19 13:00] LABS: Vitamin B12 825 pg/mL (200-900)
[2022-08-20 12:59] LABS: Free Prostate Spec Ag 0.5 ng/mL; Percent Free Prostate Spec Ag 45 % (calc) (>25); Prostate Specific Ag Total 1.1 ng/mL (< OR = 4.0)
== END 2022-08-19 08:51 | disposition home or self-care (01) ==
LOC: HO.HMGCLDS 08:50
PROVIDERS: PCP Nurse Practitioner Primary Care; Visit Provider Student in an Organized Health Care Education/Training Program
DX: Z00.00 Encounter for general adult medical examination without abnormal findings (principal); E11.69 Type 2 diabetes mellitus with other specified complication; E78.5 Hyperlipidemia, unspecified; D35.2 Benign neoplasm of pituitary gland; Z86.73 Personal history of transient ischemic attack (TIA), and cerebral infarction without residual deficits
CPT/HCPCS: 36415; 80053; 80061; 82043; 82607; 83036; 84154; 85025

== ENCOUNTER 2022-09-08 08:06 | Outpatient (REF) | payer MEDICARE, MEDICAID, SELFPAY ==
--- NOTE | ~2022-09-08 | MR_ITS ---
MR BRAIN WITHOUT AND WITH CONTRAST CLINICAL INFORMATION: Incidental finding a 4 mm pituitary lesion/CVA. COMPARISON: Brain MRI 08/12/2022. TECHNIQUE: Multiplanar, multisequence MRI of the brain was obtained before and after the intravenous administration of 3.5 mL of Gadavist. FINDINGS: Assessment for small pituitary lesions is limited by heterogeneous background enhancement of the pituitary gland. There are a few punctate foci of hypoenhancement within the posterior aspect of the pituitary making it difficult to exclude the presence of a small pituitary microadenoma. Correlation with endocrine function tests advised. There is no sellar/suprasellar mass effect. Infundibulum is midline. Cavernous sinuses are symmetric and normal. There is no mass effect on the optic nerve apparatus. There is no pathologic intracranial enhancement. There is mild chronic microangiopathy. There is no hydrocephalus, extra-axial surface collection, or herniation. The major flow voids at the skull base are preserved. There is no acute infarct on diffusion-weighted imaging. There is no intracranial hemorrhage on the gradient recalled echo acquisition. The midline structures are normal. The cerebellar tonsils are normally positioned. The cerebellum and brainstem are normal. The craniocervical junction is normal. Osseous marrow signal intensity is homogenous. The visualized soft tissues are unremarkable. Mild mucosal thickening throughout the paranasal sinuses. MR/MR head/brain wo/w con IMPRESSION: Assessment for small pituitary lesions is limited by heterogeneous background enhancement of the pituitary gland. There are a few punctate foci of hypoenhancement within the posterior aspect of the pituitary making it difficult to exclude the presence of a small pituitary microadenoma. Correlation with endocrine function tests advised. There is no sellar/suprasellar mass effect.
== END 2022-09-08 08:07 | disposition home or self-care (01) ==
LOC: HO.MRI 08:06
PROVIDERS: PCP Nurse Practitioner Primary Care; Visit Provider Student in an Organized Health Care Education/Training Program
DX: I63.9 Cerebral infarction, unspecified (principal)
CPT/HCPCS: 70553; A9585

== ENCOUNTER → 2022-09-24 14:39 | Outpatient (BNVA) | payer MEDICARE, MEDICAID, SELFPAY | PROVIDERS: Visit Provider Internal Medicine | DX: I35.9 Nonrheumatic aortic valve disorder, unspecified (principal); I63.9 Cerebral infarction, unspecified; I10 Essential (primary) hypertension; R00.2 Palpitations | CPT/HCPCS: 99212 ==

== ENCOUNTER 2022-10-08 14:15 | Outpatient (REF) | payer MEDICARE, MEDICAID, SELFPAY ==
[2022-10-10 14:33] LABS: Prolactin 3.4 ng/mL (2.0-18.0)
== END 2022-10-08 14:16 | disposition home or self-care (01) ==
LOC: HO.LAB 14:15
PROVIDERS: PCP Psychiatry & Neurology Neurology; Visit Provider Psychiatry & Neurology Neurology
DX: D35.2 Benign neoplasm of pituitary gland (principal)
CPT/HCPCS: 36415; 84146

== ENCOUNTER 2022-11-30 13:14 | Emergency (ER) | payer MEDICARE, MEDICAID, SELFPAY ==
--- NOTE | ~2022-11-30 | CT_ITS ---
EXAMINATION: CT ABDOMEN AND PELVIS WITHOUT CONTRAST CLINICAL INFORMATION: 62-year-old male with left lower quadrant abdominal pain COMPARISON: 04/15/2022 TECHNIQUE: Multidetector volumetric imaging was performed from the superior aspect of the liver through the pubic symphysis. Sagittal and coronal reformatted images were obtained on the technologist's workstation. This CT examination was performed using dose optimization techniques as appropriate, variously including the following: *Automated exposure control *Adjustment of mA and/or kV according to patient size (this includes techniques or standardized protocols for targeted exams where dose is matched to indication/reason for exam; i.e. extremities or head) *Use of iterative reconstruction technique DLP: 515 mGy-cm FINDINGS: LUNG BASES: The visualized lung bases are unremarkable. LIVER, GALLBLADDER, AND BILIARY TREE: The liver is normal in size, shape, and attenuation. No focal hepatic lesion or biliary ductal dilatation is present. The gallbladder is unremarkable with no evidence of radiopaque gallstones, gallbladder wall thickening, or obvious pericholecystic inflammatory changes. PANCREAS: Unremarkable. SPLEEN: Unremarkable. ADRENAL GLANDS: Unremarkable. KIDNEYS AND URETERS: The kidneys are normal in size, shape, and attenuation. No hydronephrosis, hydroureter, or calculi seen. No perinephric stranding. BLADDER: Unremarkable. GASTROINTESTINAL TRACT: There is fat density of ovoid shape, adjacent to the descending colon, measured approximately 1.5 cm in diameter with high density thin high-density rim, surrounded by inflammatory fat stranding and is adjacent to descending colon and is due to epiploic appendages. There is diverticulosis of descending colon and sigmoid colon but no evidence of diverticulitis ABDOMINAL WALL: No significant hernia is appreciated. Extensive diverticulosis of the descending colon and sigmoid colon but no evidence of diverticulitis. Normal appendix present LYMPH NODES: Normal. VASCULAR: Unremarkable. PELVIC VISCERA: Unremarkable. OSSEOUS STRUCTURES: There are degenerative changes at the level of L5-S1 and straightening of lumbar lordosis CT/CT abdomen pelvis wo IV con IMPRESSION: Epiploic appendagitis of descending colon. Diverticulosis without diverticulitis. Fleischner guidelines were followed.
--- NOTE | 2022-11-30 13:49 | ED_ITS ---
HPI - General Adult General Chief complaint: Abdominal Pain Stated complaint: groin pain Time Seen by Provider: 11/30/22 18:27 Source: patient Mode of arrival: ambulatory Limitations: no limitations History of Present Illness HPI narrative: Patient with no significant abdominal complaints in the past comes with pain mostly in left lower abdominal pain for last 5 days without any nausea vomiting or diarrhea no relation with food , feels like burning and difficulty in emptying his bladder no blood in the urine no fever or chills no diarrhea no melena Related Data Home Medications Medication Instructions Recorded Confirmed fluoxetine 40 mg capsule 40 mg PO DAILY 03/28/20 09/24/22 hydroxyzine HCl 10 mg tablet 10 mg PO BEDTIME PRN Anxiety 03/28/20 09/24/22 blood sugar diagnostic #10 ea 05/06/20 09/24/22 clonazepam 1 mg tablet 1 mg PO BEDTIME PRN Anxiety 06/17/21 09/24/22 empagliflozin 25 mg tablet 25 mg PO DAILY 06/17/21 09/24/22 (Jardiance) lisinopril 10 mg tablet 10 mg PO DAILY 06/17/21 09/24/22 tamsulosin 0.4 mg capsule 0.4 mg PO DAILY 06/17/21 09/24/22 albuterol sulfate 90 mcg/actuation 2 puff inhalation Q4-6H PRN 08/11/22 09/24/22 aerosol inhaler (Ventolin HFA) wheezing Previous Rx's Medication Instructions Recorded omeprazole 40 mg capsule,delayed 40 mg PO DAILY #30 caps 04/29/22 release cholecalciferol (vitamin D3) 50 50 mcg PO DAILY 30 days #30 caps 05/04/22 mcg (2,000 unit) capsule aspirin 81 mg tablet,delayed 81 mg PO DAILY #30 tabs 08/12/22 release atorvastatin 80 mg tablet 80 mg PO DAILY #30 tabs 08/12/22 tadalafil 20 mg tablet 20 mg PO .PRN sexual activity 30 08/14/22 days #30 tabs sodium,potassium,mag sulfates 17.5 See Rx Instructions PO .COMPLEX 08/18/22 gram-3.13 gram-1.6 gram oral soln #354 mL (Suprep Bowel Prep Kit) ibuprofen 600 mg tablet 600 mg PO Q6H PRN fever or pain 11/30/22 #30 tabs Allergies Allergy/AdvReac Type Severity Reaction Status Date / Time codeine [CODEINE] Allergy Unknown TACHYCARDIA Verified 11/30/22 13:54 codeine AdvReac Unknown anaphylaxis Uncoded 11/30/22 13:54 Review of Systems 2 Review of Systems: Yes all other systems are reviewed and are negative [facility] Past Medical History Medical History Aortic valve calcification Erectile dysfunction Essential hypertension Multinodular thyroid Other and unspecified hyperlipidemia Type 2 diabetes mellitus with unspecified complications Vitamin D deficiency Surgical History H/O colonoscopy History of esophagogastroduodenoscopy (EGD) Family History Family History Father Stroke Brother Stroke Mother Diabetes Social History Social History Household Members: Spouse Alcohol intake: never Patient Tobacco Use Status: Former Tobacco user Smoked in Last 30 Days: No Use of substances other than those prescribed or required for medical reasons: No Advance Directives: No Advance Directives Information Provided: No service: No Current occupational status: disabled Physical Exam ED Vital Signs: Vital Signs - 24 hr 11/30/22 13:50 11/30/22 18:43 11/30/22 19:11 Temperature 98.1 F Pulse Rate 81 68 67 Respiratory Rate 16 14 18 Blood Pressure 141/93 H 159/95 H 125/90 H Pulse Oximetry 98 97 97 Oxygen Delivery Method Room Air Room Air Room Air BMI result Body Mass Index 24.9 Appearance: Alert. Oriented X3. No acute distress. Eyes: PERRLA, No Nystagmus ENT: Pharynx normal. Oral Mucosa moist Neck: Normal inspection. Neck supple. CVS: Normal heart rate and rhythm. Pulses normal. Respiratory: No respiratory distress. Equal air entry bilateral, no wheezing/rales/rhonchi Abdomen: Soft , mild tenderness left lower quadrant no rebound tenderness or guarding Bowel sounds are present, no mass palpable, no CVA tenderness Skin: Skin warm and dry. Normal skin color. Normal skin turgor. Extremities: No lower extremity edema. No calf tenderness Neuro: Oriented X 3. No motor deficit. Course Course Course Narrative: This is a rapid medical exam: Additional HPI, ROS, PE not included below will be deferred to primary provider. Patient is a 62-year-old Cuban-speaking male with history of T2DM, HTN, erectile dysfunction, HLD presenting to the emergency department with complaint of bilateral groin pain for 4-5 days. Denies any nausea, vomiting, diarrhea. Reports burning with urination. States he is currently on medication for inflammation of prostate. Did not take BP medication this morning. BP elevated in triage. Plan: UA, labs Medications Administered Discontinued Medications Generic Name Dose Route Start Last Admin Trade Name Freq PRN Reason Stop Dose Admin Dicyclomine HCl 20 mg 11/30/22 18:37 11/30/22 19:11 Dicyclomine Hcl 10 Mg Capsule PO 11/30/22 18:38 20 mg ONCE ONE Administration Ibuprofen 600 mg 11/30/22 19:56 11/30/22 20:01 Ibuprofen 600 Mg Tablet PO 11/30/22 19:57 600 mg ONCE ONE Administration Medical Decision Making Medical Decision Making [facility] Narrative: Patient stable labs CT scan showed epiploic appendagitis will discharge patient on ibuprofen Differential Diagnosis Differential Diagnoses: The differential diagnosis associated with the presentation includes Diverticulitis/colitis/appendagitis Lab Data [facility] Lab Attestation statement: I reviewed the patient's lab results. 11/30/22 14:25 11/30/22 14:25 Labs: Lab Results 11/30/22 11/30/22 11/30/22 Range/Units 14:25 14:25 15:14 WBC 4.6 L (4.8-10.8) X10*3/uL RBC 6.45 H (4.60-5.80) X10*6/uL Hgb 18.2 H (14.0-18.0) g/dl Hct 53.2 H (42.0-52.0) % MCV 82.5 (80.0-98.0) fL MCH 28.2 (27.0-33.0) pg MCHC 34.2 (31.0-36.0) g/dl RDW 12.5 (11.0-16.0) % Plt Count 191 (160-400) X10*3/uL MPV 9.8 (9.4-12.4) fL Immature Gran % (Auto) 0.2 (0.0-0.4) % Neut % (Auto) 55.4 (45-73) % Lymph % (Auto) 32.2 (20-40) % [place] % (Auto) 9.0 (2-11) % Eos % (Auto) 2.8 (0-4) % Baso % (Auto) 0.4 (0-2) % Lymph # (Auto) 1.5 (1.2-4.9) X10*3/uL [place] # (Auto) 0.4 (0.1-1.2) X10*3/uL Eos # (Auto) 0.1 (0.0-0.4) X10*3/uL Baso # (Auto) 0.0 (0.0-0.2) X10*3/uL Abs Immat Gran (auto) 0.01 (0.00-0.03) X10*3/uL Absolute Neuts (auto) 2.5 (2.0-8.3) x10*3/uL Absolute Nucleated RBC 0.000 (0.0-0.012) X10*3/uL Nucleated RBC % (auto) 0.0 (0.0-0.2) /100WBC Sodium 139 (135-145) mmol/L Potassium 5.4 H D (3.3-5.1) mmol/L Chloride 103 (96-108) mmol/L Carbon Dioxide 29 (22-29) mmol/L Anion Gap 12 (12-20) BUN 17 H (9-16) mg/dL Creatinine 1.15 (0.5-1.4) mg/dL Estim Creat Clear Calc 65.2 Estimated GFR > 60 Random Glucose 212 H (60-115) mg/dL Calcium 10.6 H D (8.4-10.2) mg/dL Total Bilirubin 0.5 (0.0-1.0) mg/dL AST 24 (5-37) U/L ALT 55 H (0-40) U/L Alkaline Phosphatase 149 H (39-117) U/L Total Protein 8.0 (6.5-8.0) g/dL Albumin 4.7 (3.5-5.0) g/dL Urine Color Yellow Urine Appearance Clear Urine pH 7.5 (5.0-9.0) Ur Specific [place] >= 1.030 H (1.005-1.025) Urine Protein Negative (Neg-Trace) mg/dL Urine Glucose (UA) >=1000 H (Negative) mg/dL Urine Ketones Negative (Negative) mg/dL Urine Blood Negative (Negative) Urine Nitrite Negative (Negative) Ur Leukocyte Esterase Negative (Negative) Urine RBC 0-2 (0-2) /HPF Urine WBC 0-5 (0-5) /HPF Ur Squamous Epith Cells 0-2 (0-2) /HPF Urine Bacteria None Seen (None Seen) Hyaline Casts 0-2 (0-2) /LPF Discharge Plan Discharge Clinical Impression: Epiploic appendagitis Patient Disposition: Home, Self-Care Instructions: Abdominal Pain (ED) Additional Instructions: Take ibuprofen for pain Follow with PCP if worsening of the pain Prescriptions: New ibuprofen 600 mg tablet 600 mg PO Q6H PRN (Reason: fever or pain) Qty: 30 0RF No Action sodium,potassium,mag sulfates [Suprep Bowel Prep Kit] 17.5-3.13-1.6 gram recon soln See Rx Instructions PO .COMPLEX Qty: 354 0RF Rx Instructions: DILUTE; drink full amount early evening before AND next morning at least 6 hr before procedure; follow w 32 oz. water PO albuterol sulfate [Ventolin HFA] 90 mcg/actuation HFA aerosol inhaler 2 puff inhalation Q4-6H PRN (Reason: wheezing) aspirin 81 mg Tablet,Delayed Release (Dr/Ec) 81 mg PO DAILY Qty: 30 0RF atorvastatin 80 mg Tablet 80 mg PO DAILY Qty: 30 0RF fluoxetine 40 mg capsule 40 mg PO DAILY hydroxyzine HCl 10 mg tablet 10 mg PO BEDTIME PRN (Reason: Anxiety) clonazepam 1 mg tablet 1 mg PO BEDTIME PRN (Reason: Anxiety) Jardiance 25 mg tablet 25 mg PO DAILY tamsulosin 0.4 mg capsule 0.4 mg PO DAILY lisinopril 10 mg tablet 10 mg PO DAILY (DME) blood sugar diagnostic Strip See Rx Instructions Not Applicable DAILY Qty: 10 Rx Instructions: As directed omeprazole 40 mg capsule,delayed release(DR/EC) 40 mg PO DAILY Qty: 30 0RF cholecalciferol (vitamin D3) 50 mcg (2,000 unit) capsule 50 mcg PO DAILY 30 Days Qty: 30 11RF tadalafil 20 mg tablet 20 mg PO .PRN 30 Days Qty: 30 1RF Interventions: ED Discharge Assessment Last Done: 11/30/22 20:10 Discharge Date/Time: 11/30/22 20:11
[2022-11-30 13:50] VITALS: BP 141/93; PULSE 81; RESP 16; TEMP 36.7; O2SAT 98; BMI 24.9
[2022-11-30 14:28] LABS: MANUAL DIFF FLAG NO
[2022-11-30 14:29] LABS: Basophils Percent Auto 0.4 % (0-2); Eosinophils Absolute Auto 0.1 X10*3/uL (0.0-0.4); Eosinophils Percent Auto 2.8 % (0-4); Hematocrit 53.2 % (42.0-52.0); Hemoglobin 18.2 g/dl (14.0-18.0); Imm Gran Abs Auto 0.01 X10*3/uL (0.00-0.03); Imm Gran Pct Auto 0.2 % (0.0-0.4); Lymphocytes Absolute Auto 1.5 X10*3/uL (1.2-4.9); Lymphocytes Percent Auto 32.2 % (20-40); Mean Corpuscular HGB Conc 34.2 g/dl (31.0-36.0); Mean Corpuscular Hemoglobin 28.2 pg (27.0-33.0); Mean Corpuscular Volume 82.5 fL (80.0-98.0); Mean Platelet Volume 9.8 fL (9.4-12.4); Monocytes Absolute Auto 0.4 X10*3/uL (0.1-1.2); Neutrophils Absolute Auto 2.5 x10*3/uL (2.0-8.3); Neutrophils Percent Auto 55.4 % (45-73); Platelet Count 191 X10*3/uL (160-400); Red Blood Count 6.45 X10*6/uL (4.60-5.80); Red Cell Distribution Width 12.5 % (11.0-16.0); White Blood Count 4.6 X10*3/uL (4.8-10.8)
[2022-11-30 14:47] LABS: Alanine Aminotransferase 55 U/L (0-40); Albumin Level 4.7 g/dL (3.5-5.0); Alkaline Phosphatase 149 U/L (39-117); Anion Gap 12 (12-20); Aspartate Amino Transferase 24 U/L (5-37); Bilirubin Total 0.5 mg/dL (0.0-1.0); Blood Urea Nitrogen 17 mg/dL (9-16); Calcium 10.6 mg/dL (8.4-10.2); Carbon Dioxide 29 mmol/L (22-29); Chloride 103 mmol/L (96-108); Creatinine Clr Calc Pharmacy 65.2; Estimated Glomerular Filt Rate > 60; Glucose Random 212 mg/dL (60-115); Potassium 5.4 mmol/L (3.3-5.1); Sodium 139 mmol/L (135-145)
[2022-11-30 15:20] LABS: Appearance Urine Clear; Color Urine Yellow; Glucose Urine UA >=1000 mg/dL (Negative); Leukocyte Esterase Urine Negative (Negative); Nitrite Urine Negative (Negative); PH 7.5 (5.0-9.0); Specific Gravity - Urine >= 1.030 (1.005-1.025); UMIC TRIGGER UACC YES; Urine Blood Negative (Negative); Urine Ketones Negative (Negative); Urine Protein Negative (Neg-Trace)
[2022-11-30 15:44] LABS: Bacteria Urine None Seen (None Seen); Hyaline Casts Urine 0-2 /LPF (0-2); RBC Urine 0-2 /HPF (0-2); Squamous Epithelial Cell Urine 0-2 /HPF (0-2); WBC Urine 0-5 /HPF (0-5)
[2022-11-30 18:43] VITALS: BP 159/95; PULSE 68; RESP 14; O2SAT 97
[2022-11-30 19:11] VITALS: BP 125/90; PULSE 67; RESP 18; O2SAT 97
[2022-11-30] MEDS: Dicyclomine HCl 10 MG CAPSULE 20 MG PO (19:11)
--- NOTE | 2022-11-30 19:20 | PC.NURSE ---
assumed care of pt at 1900 - pt medicated per may for abdominal pain and cramping. vital signs updated. call rose within reach
[2022-11-30] MEDS: Ibuprofen 600 MG TABLET PO (20:01)
== END 2022-11-30 20:11 | disposition home or self-care (01) ==
PROVIDERS: Registered Nurse Emergency; Emergency Provider Internal Medicine
DX: K63.89 Other specified diseases of intestine (principal); R10.32 Left lower quadrant pain; R10.2 Pelvic and perineal pain; Z87.891 Personal history of nicotine dependence; Z79.899 Other long term (current) drug therapy
CPT/HCPCS: 36415; 74176; 80053; 81001; 85025; 99284

== ENCOUNTER → 2023-01-14 12:35 | Outpatient (REF) | payer MEDICARE, MEDICAID, SELFPAY ==
--- NOTE | 2023-01-14 12:41 | CA_ITS ---
Transthoracic Echocardiogram Patient (Last, First, Middle): Jessica Wing, Gender: Male Date of : 1960 Age: 62 Procedure Date: 01/14/2023 Procedure Type: Transthoracic Echocardiogram Location: OP Height: 172.72 cm Weight: 84.37 kg BSA: 1.98 m2 Heart Rate: 76 bpm BP: 120 / 70 mmHg [employer] Manager: DENIA/CELESTE Referring MD: Pasty [address] MONKEY[place] Symptoms: I35.0 - Nonrheumatic aortic (valve) stenosis Study Quality: Fair but adequate ECG Rhythm: Sinus Conclusions: - The left ventricular systolic function is normal. The visually estimated ejection fraction is between 55-60%. - There is mild aortic valve stenosis. Possible bicuspid morphology. Findings Left Ventricle Normal left ventricular cavity size. The left ventricular systolic function is normal. The visually estimated ejection fraction is between 55-60%. There is no evidence of regional wall motion abnormalities. Diastolic function is normal for age. There is mild septal asymmetric hypertrophy. Right Ventricle Normal right ventricular cavity size and systolic function. Atria Both atria are normal in size. Aortic Valve There is mild aortic valve stenosis. There is no aortic valve regurgitation. Possible bicuspid morphology. Mitral Valve The mitral valve appears normal. There is no mitral valve regurgitation. There is no mitral valve stenosis. Pulmonic Valve The pulmonic valve is likely normal. Tricuspid Valve There is trace tricuspid valve regurgitation. There is no evidence of pulmonary hypertension. Great Vessels The asc aorta is normal in size. Venous The inferior vena cava was not well visualized. Pericardium/Pleural There is no evidence of pericardial effusion. Prior Study Comparison No significant change compared to prior study dated: 12/18/2021. Measurements 2D Linear Measurements IVSd: 1.10 0.6-0.9/0.6-1.0 cm LVIDd: 4.40 3.9-5.3/4.2-5.9 cm LVIDd Index: 2.22 2.4-3.2/2.2-3.1 cm/m2 LVIDs: 2.70 2.0-3.6 cm LVPWd: 0.70 0.7-1.1 cm LA Diam: 3.30 2.7-3.8/3.0-4.0 cm LAIDs Index: 1.67 1.5-2.3 cm/m2 LV Mass: 159.27 67-162/88-224 g LV Mass Index: 80.44 43-95/49-115 g/m2 LVOT Diam: 2.10 3.0+(-)1.3 cm Mitral Valve MV Pk E: 0.83 MV PK A: 1.08 MV Decel Time: 198.00 E/A: 0.80 E'Lateral: 8.49 E'Medial: 5.44 E/E' Med: 15.30 E/E' Lat: 9.80 PHT: 58.00 MVA PHT: 3.79 Decel [place]: 4.19 Aortic Valve AoV Pk Armando: 2.03 AoV Mn Armando: 1.52 AoV VTI: 0.43 AoV Pk Grad: 18.00 Aov Mn Grad: 11.00 TEJ Cont.VTI: 1.58 AI Pk Arm[place]: 3.02 AI [place]: 1.59 LVOT LVOT Pk [place]: 1.00 LVOT Mn [place]: 0.69 LVOT VTI: 0.20 LVOT Pk Grad: 4.00 LVOT Mn Grad: 2.00 LVOT Diam: 2.10 LVOT Area: 3.46 Diastolic Function MV Pk E: 0.83 MV Pk A: 1.08 E/A: 0.80 E'Medial: 5.44 E/E' Med: 15.30 E' Laterial: 8.49 E/E' Lat: 9.80 Right Ventricle TAPSE (mm): 20.00 TVS' Armando: 11.70 Tricuspid Valve TR Pk Armando: 1.91 TR Pk Grad: 15.00 RA Press: 3.00 RVSP: 18.00 Great Vessels Aorta Sinus of Valsalva: 3.80 2.0-3.5 cm Ao Asc: 3.20 2.1-3.4 cm Pulmonary Valve PV Pk Armando: 0.75 Peak PV Grad: 2.00 Updated in Other Vendor System with Status of Final Federico Bowles MD electronically signed on 01/16/2023 12:06:15 PM with status of Final
--- NOTE | 2023-01-14 12:41 | HM_ITS ---
* Total monitoring time 2 weeks. * Underlying is sinus. Ventricular rate 81/Min. Range 47 to 151/Min. * Rare supraventricular and ventricular ectopy. * No significant arrhythmias. * No significant pauses or AV blocks. * No patient markers or events in diary. MTDD
== END ==
LOC: HO.CARD 12:35
PROVIDERS: Visit Provider Nurse Practitioner Family
DX: R00.2 Palpitations (principal); I35.0 Nonrheumatic aortic (valve) stenosis; R06.02 Shortness of breath
CPT/HCPCS: 93246; 93306

== ENCOUNTER → 2023-01-14 12:41 | Outpatient (BNV) | payer MEDICARE, MEDICAID, SELFPAY | PROVIDERS: Visit Provider Internal Medicine | DX: I47.10 Supraventricular tachycardia, unspecified (principal) | CPT/HCPCS: 93248; 93306 ==

== ENCOUNTER 2023-01-18 13:55 | Outpatient (AMB) | payer MEDICARE, MEDICAID, SELFPAY ==
--- NOTE | 2023-01-18 14:06 | A.OFFPC_ITS ---
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 Allergies codeine [CODEINE] Allergy (Unknown, Verified 01/18/23 15:06) TACHYCARDIA codeine Adverse Reaction (Unknown, Uncoded 01/18/23 15:06) anaphylaxis Medication List - Last Reconciled 01/18/23 by Enmanuel Crowder, [facility]- albuterol sulfate 90 mcg/actuation (Ventolin HFA) 2 puffs inhalation Q4-6H PRN aspirin 81 mg PO DAILY atorvastatin 80 mg PO DAILY blood sugar diagnostic As directed cholecalciferol (vitamin D3) 50 mcg PO DAILY 30 days clonazepam 1 mg PO BEDTIME PRN empagliflozin (Jardiance) 25 mg PO DAILY fluoxetine 40 mg PO DAILY fluticasone propionate 50 mcg/actuation 1 spray intranasal DAILY gabapentin 600 mg PO BEDTIME hydroxyzine HCl 10 mg PO BEDTIME PRN ibuprofen 600 mg PO Q6H PRN lisinopril 10 mg PO DAILY metformin 500 mg PO BID omeprazole 40 mg PO DAILY sodium,potassium,mag sulfates 17.5-3.13-1.6 gram (Suprep Bowel Prep Kit) DILUTE; drink full amount early evening before AND next morning at least 6 hr before procedure; follow w 32 oz. 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 Pt is a diabetic, on an TL and a statin. A1C in office today is 8.4. Microalbumin is up to date. Denies polyuria, polydipsia, and neuropathy. Pt denies any signs and symptoms of hypoglycemia and does know how to correct it. Pt reports that his blood sugar is typically around 130. Will start ozempic 0.25mg. Pt c/o dizziness upon standing. Will check orthostatic vitals. Pt has seen a neurologist. LUIS in the room today to translate. [facility] Medical History (Updated 01/18/23 @ 15:45 by DONTA Martinez) Erectile dysfunction Vitamin D deficiency Multinodular thyroid Other and unspecified hyperlipidemia Type 2 diabetes mellitus with unspecified complications Essential hypertension Aortic valve calcification Surgical History History of esophagogastroduodenoscopy (EGD) H/O colonoscopy Family History Father Stroke Brother Stroke Mother Diabetes Social History Household Members: Spouse Housing: House Alcohol intake: never Patient Tobacco Use Status: Former Tobacco user service: No Current occupational status: disabled Cognitive needs: No Hearing needs: No Vision needs: Yes Questionnaire Thrive Questionnaire Date Thrive assessed: 01/18/23 I am a: Patient What is your living situation today?: I have a steady place to live Within the past 12 months, did the food you bought not last and you didn't have the money to get more?: Never true Within the past 12 months, did you worry whether your food would run out before you got money to buy more?: Never true Do you have trouble paying for medicines?: Yes Do you have trouble getting transportation to medical appointments?: No Do you have trouble paying your heating and electricity bill?: No Do you have trouble taking care of your child, family member or friend?: No Do you have trouble with day-to-day activities such as bathing, preparing meals, shopping, managing finances, etc.?: No Are you currently unemployed and looking for a job?: No Are you interested in more education?: No Review of Systems Const Reports as per HPI Physical exam (Primary Care) Vital Signs: Last Vital Signs Pulse 77 01/18/23 14:20 BP 120/80 01/18/23 14:20 Pulse Ox 97 01/18/23 14:20 Oxygen Delivery Method Room Air 01/18/23 14:20 BMI result Body Mass Index 27.1 Tobacco/Smoking Status: Tobacco use Status Tobacco use date assessed 01/18/23 01/18/23 14:30 Patient Tobacco Use Status Former Tobacco user 01/18/23 14:08 Thrive Assessment: Date of Thrive Assessment Date Thrive assessed 01/18/23 01/18/23 14:36 Const General: cooperative Orientation/consciousness: patient oriented x3 HENMT Ears: TM's normal bilaterally Resp Effort & Inspection: normal respiratory effort Auscultation: clear to auscultation bilaterally Cardio Rate: regular rate Rhythm: regular rhythm Heart sounds: S1 normal heart sound present, S2 normal heart sound present and Murmur heart sound present systolic (faint) Neuro Other: finger to thumb intact, heel to lewis intact, - romberg General: patient oriented x3 and CN's II-XI intact bilaterally Extrem Other: bilat feet: + sensation with use of monofilament Psych Appearance: grossly normal Mental Status: mental status grossly normal Speech and movement: Normal speech and movement present Affect: normal affect Attitude: cooperative Thought process: Normal thought process present Thought content: Normal thought content present Insight: Good insight present (Psych) Judgement: Good judgement present (Psych) Results AMB Hemoglobin A1c AMB Hemoglobin A1c 8.4 % Last Edit by Siena Diaz CMA on 01/18/23 15: 37 Immunizations pneumoc 20-yfn conj-dip cr(PF) 0.5 mL IM syringe Performing Provider: DONTA Martinez Performing Location: [facility] Administered by: Timmy Diaz CMA on 01/18/23 14:57 Dose Route Admin Location Dispensed Lot Number Expiration Date NDC [employer] 0.5 mL IM Right Deltoid 0.5 mL [id number] 01/27/24 1305-2946-30 [employer] [place] VIS Given Date VIS Provided VIS Publication Date 01/18/23 Single Vaccine 21 Eligibility Eligibility Date Funding Source Not VFC Eligible 01/18/23 Private Results Reviewed Results Reviewed: Laboratory Last Values Hgb A1c (Clinic) 8.4 % (4.0-6.0) H 10/23/23 15:34 Assessment and Plan Assessment & Plan (1) Type 2 diabetes mellitus with unspecified complications: Code(s): E11.8 - Type 2 diabetes mellitus with unspecified complications Plan: adding ozempic Plan The patient agreed to the use of a medical transcriptionist for this encounter. Scribed for Enmanuel Crowder, [employer] by Lore Emery medical transcriptionist, on 01/18/2023 at 14:40 EST Orders: Orders Comprehensive [place]. Panel Fast Today E11.69 - Type 2 diabetes mellitus with other specified complication, N52.1 - Erectile dysfunction due to diseases classified elsewhere TSH reflex Free T4 Today E11.69 - Type 2 diabetes mellitus with other specified complication, N52.1 - Erectile dysfunction due to diseases classified elsewhere Lipid Panel Today E11.69 - Type 2 diabetes mellitus with other specified complication, N52.1 - Erectile dysfunction due to diseases classified elsewhere Pneumococcal 20 Immunization Today Z23 - Encounter for immunization AMB Hemoglobin A1c Today E11.69 - Type 2 diabetes mellitus with other specified complication, N52.1 - Erectile dysfunction due to diseases classified elsewhere Complete Blood Count Auto Diff Today E11.69 - Type 2 diabetes mellitus with other specified complication, N52.1 - Erectile dysfunction due to diseases classified elsewhere UA CC w/rflx Micro + Cult Today E11.69 - Type 2 diabetes mellitus with other specified complication, N52.1 - Erectile dysfunction due to diseases classified elsewhere Medications: New semaglutide (Ozempic) for 4 weeks 0.25 mg (0.368 mL) subcut QWEEK 3 mL 0RF Coding Level of Care Code New Pt Level 3 (24625) Diagnoses Type 2 diabetes mellitus with unspecified complications E11.8
[2023-01-18 14:20] VITALS: BP 120/80; PULSE 77; O2SAT 97; BMI 27.1
[2023-01-18 16:04] VITALS: BP 120/70; PULSE 78; O2SAT 98
[2023-01-18 16:05] VITALS: BP 112/80; BP 130/80; PULSE 74; PULSE 82; O2SAT 96; O2SAT 98
== END 2023-01-18 15:16 | disposition home or self-care (01) ==
PROVIDERS: Visit Provider Nurse Practitioner Family
DX: E11.69 Type 2 diabetes mellitus with other specified complication (principal); N52.1 Erectile dysfunction due to diseases classified elsewhere; Z23 Encounter for immunization; E11.8 Type 2 diabetes mellitus with unspecified complications
CPT/HCPCS: 83036; 90471; 90677; 99203

== ENCOUNTER 2023-01-19 09:36 | Outpatient (REF) | payer MEDICARE, MEDICAID, SELFPAY ==
[2023-01-19 11:27] LABS: MANUAL DIFF FLAG NO
[2023-01-19 11:44] LABS: Basophils Percent Auto 0.4 % (0-2); Eosinophils Absolute Auto 0.1 X10*3/uL (0.0-0.4); Eosinophils Percent Auto 2.3 % (0-4); Hematocrit 48.4 % (42.0-52.0); Hemoglobin 16.5 g/dl (14.0-18.0); Imm Gran Abs Auto 0.02 X10*3/uL (0.00-0.03); Imm Gran Pct Auto 0.4 % (0.0-0.4); Lymphocytes Absolute Auto 1.3 X10*3/uL (1.2-4.9); Lymphocytes Percent Auto 25.4 % (20-40); Mean Corpuscular HGB Conc 34.1 g/dl (31.0-36.0); Mean Corpuscular Hemoglobin 28.4 pg (27.0-33.0); Mean Corpuscular Volume 83.3 fL (80.0-98.0); Mean Platelet Volume 10.7 fL (9.4-12.4); Monocytes Absolute Auto 0.4 X10*3/uL (0.1-1.2); Monocytes Percent Auto 7.1 % (2-11); Neutrophils Absolute Auto 3.4 x10*3/uL (2.0-8.3); Neutrophils Percent Auto 64.4 % (45-73); Platelet Count 182 X10*3/uL (160-400); Red Blood Count 5.81 X10*6/uL (4.60-5.80); Red Cell Distribution Width 12.2 % (11.0-16.0); White Blood Count 5.2 X10*3/uL (4.8-10.8)
[2023-01-19 12:14] LABS: Alanine Aminotransferase 49 U/L (0-40); Albumin Level 4.4 g/dL (3.5-5.0); Alkaline Phosphatase 103 U/L (39-117); Anion Gap 15 (12-20); Aspartate Amino Transferase 26 U/L (5-37); Bilirubin Total 0.5 mg/dL (0.0-1.0); Blood Urea Nitrogen 23 mg/dL (9-16); Calcium 9.5 mg/dL (8.4-10.2); Carbon Dioxide 26 mmol/L (22-29); Chloride 104 mmol/L (96-108); Cholesterol 137 mg/dL (<200); Estimated Glomerular Filt Rate > 60; Glucose Fasting 144 mg/dL (60-99); HDL Cholesterol 43 mg/dL (>40); LDL Cholesterol Calculated 81 mg/dL (<100); Sodium 141 mmol/L (135-145); Total Protein 7.5 g/dL (6.5-8.0); Triglycerides 67 mg/dL (<150)
[2023-01-19 12:22] LABS: TSH reflex Free T4 1.64 uIU/mL (0.32-4.0)
[2023-01-19 13:29] LABS: Appearance Urine Clear; Color Urine Yellow; Glucose Urine UA >=1000 mg/dL (Negative); Leukocyte Esterase Urine Negative (Negative); Nitrite Urine Negative (Negative); PH 5.5 (5.0-9.0); Specific Gravity - Urine >= 1.030 (1.005-1.025); UMIC TRIGGER UACC YES; Urine Blood Negative (Negative); Urine Ketones Negative (Negative); Urine Protein Negative (Neg-Trace)
[2023-01-19 13:39] LABS: Bacteria Urine None Seen (None Seen); Hyaline Casts Urine 0-2 /LPF (0-2); RBC Urine 0-2 /HPF (0-2); Squamous Epithelial Cell Urine 0-2 /HPF (0-2); WBC Urine 0-5 /HPF (0-5)
== END 2023-01-19 09:37 | disposition home or self-care (01) ==
LOC: HO.HMGCLDS 09:36
PROVIDERS: PCP Nurse Practitioner Family; Visit Provider Nurse Practitioner Family
DX: E11.65 Type 2 diabetes mellitus with hyperglycemia (principal); N52.1 Erectile dysfunction due to diseases classified elsewhere
CPT/HCPCS: 36415; 80053; 80061; 81001; 84443; 85025

== ENCOUNTER 2023-01-25 13:30 | Emergency (ER) | payer MEDICARE, MEDICAID, SELFPAY ==
[2023-01-25 13:43] VITALS: BP 139/93; PULSE 82; RESP 20; TEMP 36.4; O2SAT 98; BMI 27.0
--- NOTE | 2023-01-25 13:43 | ED.GENADULT ---
HPI - General Adult General Chief complaint: General Medical Stated complaint: Facial swelling Time Seen by Provider: 01/25/23 16:47 Source: patient Mode of arrival: ambulatory Limitations: no limitations History of Present Illness HPI narrative: 62-year-old male presents to ED for right lower lip swelling that actually resolved and improved. Patient states last night at home he felt some itchiness and tingling in right lower lip and then his right lower lip became profusely swollen. Patient denies rash anywhere else on the body. patient denies tongue swelling, shortness of breath, or sensation of throat closing. Patient is on lisinopril for over 10 years. Patient denies eating eating any new or unusual foods. Patient states he had pork and potatoes which she cooked at home herself which usually eats. Patient states right lower lip swelling resolved without any Benadryl medication. Patient denies any drooling, shortness of breath, neck swelling, fever, or chills. Patient states she has right upper tooth canal done last week and completed course of amoxicillin. Patient states no known history of any allergy Related Data Home Medications Medication Instructions Recorded Confirmed fluoxetine 40 mg capsule 40 mg PO DAILY 03/28/20 01/18/23 hydroxyzine HCl 10 mg tablet 10 mg PO BEDTIME PRN Anxiety 03/28/20 01/18/23 blood sugar diagnostic #10 ea 05/06/20 01/18/23 clonazepam 1 mg tablet 1 mg PO BEDTIME PRN Anxiety 06/17/21 01/18/23 empagliflozin 25 mg tablet 25 mg PO DAILY 06/17/21 01/18/23 (Jardiance) lisinopril 10 mg tablet 10 mg PO DAILY 06/17/21 01/18/23 tamsulosin 0.4 mg capsule 0.4 mg PO DAILY 06/17/21 01/18/23 albuterol sulfate 90 mcg/actuation 2 puff inhalation Q4-6H PRN 08/11/22 01/18/23 aerosol inhaler (Ventolin HFA) wheezing fluticasone propionate 50 1 spray intranasal DAILY 01/18/23 01/18/23 mcg/actuation nasal spray,suspension gabapentin 600 mg tablet 600 mg PO BEDTIME 01/18/23 01/18/23 metformin 500 mg tablet 500 mg PO BID 01/18/23 01/18/23 Previous Rx's Medication Instructions Recorded omeprazole 40 mg capsule,delayed 40 mg PO DAILY #30 caps 04/29/22 release cholecalciferol (vitamin D3) 50 50 mcg PO DAILY 30 days #30 caps 05/04/22 mcg (2,000 unit) capsule aspirin 81 mg tablet,delayed 81 mg PO DAILY #30 tabs 08/12/22 release atorvastatin 80 mg tablet 80 mg PO DAILY #30 tabs 08/12/22 tadalafil 20 mg tablet 20 mg PO .PRN sexual activity 30 08/14/22 days #30 tabs sodium,potassium,mag sulfates 17.5 See Rx Instructions PO .COMPLEX 08/18/22 gram-3.13 gram-1.6 gram oral soln #354 mL (Suprep Bowel Prep Kit) ibuprofen 600 mg tablet 600 mg PO Q6H PRN fever or pain 11/30/22 #30 tabs dulaglutide 0.75 mg/0.5 mL 0.75 mg (0.5 mL) subcut QWEEK #2 mL 01/20/23 subcutaneous pen injector ([employer]) diphenhydramine HCl 25 mg capsule 25 mg PO TID PRN itching 7 days 01/25/23 (Benadryl) #21 caps epinephrine 0.3 mg/0.3 mL 0.3 mg (0.3 mL) IM Q4H PRN 01/25/23 injection, auto-injector anaphylaxis #2 ea famotidine 20 mg tablet (Pepcid) 20 mg PO BID 5 days #10 tabs 01/25/23 prednisone 20 mg tablet 40 mg (2 x 20 mg) PO DAILY 5 days 01/25/23 #10 tabs Allergies Allergy/AdvReac Type Severity Reaction Status Date / Time codeine [CODEINE] Allergy Unknown TACHYCARDIA Verified 01/25/23 13:47 codeine AdvReac Unknown anaphylaxis Uncoded 01/18/23 15:06 Review of Systems Review of Systems: tingling, itchiness, and swelling of right lower lip that improved and resolved. Yes all other systems are reviewed and are negative [facility] Past Medical History Medical History (Updated 01/25/23 @ 17:45 by IDANIA Kapoor) Erectile dysfunction Vitamin D deficiency Multinodular thyroid Other and unspecified hyperlipidemia Type 2 diabetes mellitus with unspecified complications Essential hypertension Aortic valve calcification Surgical History History of esophagogastroduodenoscopy (EGD) H/O colonoscopy Family History Family History Father Stroke Brother Stroke Mother Diabetes Social History Social History Household Members: Spouse Housing: House Alcohol intake: never Patient Tobacco Use Status: Former Tobacco user Advance Directives: No Advance Directives Information Provided: No service: No Current occupational status: disabled Cognitive needs: No Hearing needs: No Vision needs: Yes Physical Exam ED Vital Signs: Vital Signs - 24 hr 01/25/23 13:43 01/25/23 16:44 Temperature 97.6 F 97.6 F Pulse Rate 82 96 Respiratory Rate 20 16 Blood Pressure 139/93 H 128/87 Pulse Oximetry 98 98 Oxygen Delivery Method Room Air Room Air BMI result Body Mass Index 27.0 Const General: cooperative, healthy appearing, comfortable, no acute distress, well developed, alert and awake Orientation/consciousness: oriented to person, oriented to place, oriented to time and patient oriented x3 HENMT Other: Negative for obvious facial or neck swelling. Presently no drooling, change in voice, or hoarseness. Right lower molars negative for signs infection. they have silver crowns. RIght upper molars negative for signs of infection and have crowns. Head: Yes normal to inspection, Yes No palpable skull fracture present, Yes normocephalic, Yes atraumatic and No abrasion Ears: hearing grossly normal bilaterally, external ears normal, TM's normal bilaterally, TM normal on the right, TM normal on the left, EAC's normal, mastoids normal and no periauricular adenopathy Nose image: 1. slight swelling. no erythema or tenderness. No fluctlance or ecchymosis. no crepotus. patient states last night right lower lip was profusely swollen. Face and sinus: Yes normal facial exam, Yes sinuses nontender and Yes face symmetric Mouth: Normal oral and palatal mucosa present, lip normal and tongue normal Throat: Yes posterior oropharynx normal, Yes tonsils normal and Yes uvula midline Eyes General: appearance normal, both eyes and all related structures Neck Neck: Yes normal visual inspection, Yes full ROM, Yes no lymphadenopathy, Yes no meningeal signs, Yes trachea midline, Yes supple, No anterior neck swelling and No tender Chest Chest palpation & inspection: normal inspection of the chest and normal palpation of entire chest wall Resp Effort & Inspection: normal respiratory effort and able to speak in complete sentences Auscultation: clear to auscultation bilaterally Cardio Jugular venous distension: no JVD Heart sounds: S1 normal heart sound present and S2 normal heart sound present GI Inspection: Yes normal to inspection and No abdominal wall ecchymosis Palpation (GI): Soft to palpation, not firm, nontender, no guarding and not rigid General: No CVA tenderness and Yes no CVA tenderness Back/Spine/Pelvis Back: no CVA tenderness, No CVA tenderness and No back tenderness Skin General skin exam: no rashes or lesions noted, elasticity normal and turgor normal Neuro General: oriented to person, oriented to place, oriented to time, patient oriented x3, gait normal, tone normal, moves all extremities, Normal light touch and pain sensation, no meningeal signs, no focal motor deficits, CN's II-XI intact bilaterally and normal sensation to monofilament Extrem General: Yes normal to inspection and Yes full ROM Psych Appearance: grossly normal, well kempt and not disheveled Course Course Course Narrative: This is an RME: Additional HPI, ROS, PE not included below will be deferred to primary provider. This is a 62-year-old male presenting to the emergency department for evaluation of right-sided facial swelling which started yesterday. Patient denies tingling in the left. He is speaking full sentences. He states that he had a root canal about 1 week ago on the right. Lungs are clear to auscultation bilaterally. No difficulty swallowing, good strength in upper and lower extremities. Symmetric smile, no obvious facial droop, be a minimal swelling noted to the right mandibular region. Patient has poor dentition, but no dental pain. Vital signs stable. Plan: Further ER evaluation needed Medical Decision Making Medical Decision Making MDM Narrative: 62 yold male on lisinopril presents to ED for last night having itchiness seen tingling and right lower lip and then had profuse right lower lip swelling that self resolved. patient denies any fever, chills, drooling, change in voice,or neck swelling. Visual inspection negative for signs of any neck swelling or obvious right facial swelling. patient denies any facial pain or dental pain Patient face and neck examined and palpated negative for signs of fluctuating mass or lymphadenopathy. Negative for tongue swelling. Negative for uvular swelling. Patient speaking in full sentences. Negative for signs of dental infection. Not suspecting retropharyngeal abscess, Jose angina, or peritonsillar abscess. Sound like patient had a case of angioedema / allergic reaction. Patient informed to stop taking lisinopril and call primary care provider tomorrow to inform of allergic angioedema reaction. Patient discharged with Benadryl, prednisone and Pepcid. Patient will be given EpiPen. not suspecting cellulitits, facial abscess, gum abscess, or dental infection/abscess. Differential Diagnosis Differential Diagnoses: The differential diagnosis associated with the presentation includes ( cellulitis, angioedema, anaphylaxis, allergic reaction, retropharyngeal abscess, Jose angina, peritonsillar abscess) Independent Historian Clinical information obtained from an independent historian. 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 Le moncho?n el courtney con Benadryl, prednisona, Pepcid y EpiPen. Recomiende suspender el tratamiento con lisinopril y llame a dsouza proveedor de atenci?n primaria ma?colleen para informarle de cristina s?ntomas. Regrese al servicio de urgencias inmediatamente si experimenta babeo, cambios en la voz, hinchaz?n de los labios, hinchaz?n de la lengua, hormigueo, ca?da facial, par?lisis de las extremidades, p?rdida de la visi?n, hinchaz?n del fer, hinchaz?n facial, dolor dental, dolor facial, dolor de fer, fiebre, escalofr?os o cualquier otro s?ntoma preocupante. EpiPen debe usarse solo cuando se tienen signos de anafilaxia, que es wilber sensaci?n de cierre de la garganta, hinchaz?n de los labios, hinchaz?n de la lengua, dolor en el pecho o dificultad para respirar. EpiPen debe inyectarse en el muslo. Prescriptions: New prednisone 20 mg tablet 40 mg PO DAILY 5 Days Qty: 10 0RF diphenhydramine HCl [Benadryl] 25 mg capsule 25 mg PO TID PRN (Reason: itching) 7 Days Qty: 21 0RF famotidine [Pepcid] 20 mg tablet 20 mg PO BID 5 Days Qty: 10 0RF epinephrine 0.3 mg/0.3 mL auto-injector 0.3 mg IM Q4H PRN (Reason: anaphylaxis) Qty: 2 0RF Rx Instructions: inject into thigh if having signs of anyphylaxis. No Action sodium,potassium,mag sulfates [Suprep Bowel Prep Kit] 17.5-3.13-1.6 gram recon soln See Rx Instructions PO .COMPLEX Qty: 354 0RF Rx Instructions: DILUTE; drink full amount early evening before AND next morning at least 6 hr before procedure; follow w 32 oz. water PO Trulicity 0.75 mg/0.5 mL pen injector 0.75 mg subcut QWEEK Qty: 2 0RF ibuprofen 600 mg tablet 600 mg PO Q6H PRN (Reason: fever or pain) Qty: 30 0RF albuterol sulfate [Ventolin HFA] 90 mcg/actuation HFA aerosol inhaler 2 puff inhalation Q4-6H PRN (Reason: wheezing) aspirin 81 mg Tablet,Delayed Release (Dr/Ec) 81 mg PO DAILY Qty: 30 0RF atorvastatin 80 mg Tablet 80 mg PO DAILY Qty: 30 0RF metformin 500 mg tablet 500 mg PO BID gabapentin 600 mg tablet 600 mg PO BEDTIME fluticasone propionate 50 mcg/actuation spray,suspension 1 spray intranasal DAILY Rx Instructions: administer into each nostril fluoxetine 40 mg capsule 40 mg PO DAILY hydroxyzine HCl 10 mg tablet 10 mg PO BEDTIME PRN (Reason: Anxiety) clonazepam 1 mg tablet 1 mg PO BEDTIME PRN (Reason: Anxiety) Jardiance 25 mg tablet 25 mg PO DAILY tamsulosin 0.4 mg capsule 0.4 mg PO DAILY lisinopril 10 mg tablet 10 mg PO DAILY (DME) blood sugar diagnostic Strip See Rx Instructions Not Applicable DAILY Qty: 10 Rx Instructions: As directed omeprazole 40 mg capsule,delayed release(DR/EC) 40 mg PO DAILY Qty: 30 0RF cholecalciferol (vitamin D3) 50 mcg (2,000 unit) capsule 50 mcg PO DAILY 30 Days Qty: 30 11RF tadalafil 20 mg tablet 20 mg PO .PRN 30 Days Qty: 30 1RF Interventions: ED Discharge Assessment Last Done: 01/25/23 18:30 Discharge Date/Time: 01/25/23 18:30 Print Language: Romanian
[2023-01-25 16:44] VITALS: BP 128/87; PULSE 96; RESP 16; TEMP 36.4; O2SAT 98
== END 2023-01-25 18:30 | disposition home or self-care (01) ==
PROVIDERS: Emergency Provider Internal Medicine; PCP Nurse Practitioner Family
DX: L50.0 Allergic urticaria (principal)
CPT/HCPCS: 99283

== ENCOUNTER 2023-02-15 09:10 | Outpatient (AMB) | payer MEDICARE, MEDICAID, SELFPAY ==
[2023-02-15 09:46] VITALS: BP 134/90; PULSE 86; BMI 26.5
--- NOTE | 2023-02-15 09:46 | A.OFFVIS_ITS ---
Intake Vital Signs 02/15/23 09:46 Height 5 ft 8 in Weight 174 lb 9.698 oz BMI 26.5 BP 134/90 H Blood Pressure Location Lt brachial Position Sitting Pulse 86 Pulse Source Pulse Oximeter Intake Visit Reasons: f/up after testing Accelerator Operator Required: Yes Accelerator Operator Language: Cans Vacuum Tester Name: jimmie hutchinson [id number] Allergies codeine [CODEINE] Allergy (Unknown, Verified 02/15/23 09:48) TACHYCARDIA codeine Adverse Reaction (Unknown, Uncoded 01/18/23 15:06) anaphylaxis Medication List - Last Reconciled 02/15/23 by PATRICIA Martínez albuterol sulfate 90 mcg/actuation (Ventolin HFA) 2 puffs inhalation Q4-6H PRN aspirin 81 mg PO DAILY atorvastatin 80 mg PO DAILY blood sugar diagnostic As directed cholecalciferol (vitamin D3) 50 mcg PO DAILY 30 days clonazepam 1 mg PO BEDTIME PRN diphenhydramine HCl (Benadryl) 25 mg PO TID PRN 7 days dulaglutide (Trulicity) 0.75 mg (0.5 mL) subcut QWEEK empagliflozin (Jardiance) 25 mg PO DAILY epinephrine 0.3 mg (0.3 mL) IM Q4H PRN famotidine (Pepcid) 20 mg PO BID 5 days fluoxetine 40 mg PO DAILY fluticasone propionate 50 mcg/actuation 1 spray intranasal DAILY gabapentin 600 mg PO BEDTIME hydroxyzine HCl 10 mg PO BEDTIME PRN ibuprofen 600 mg PO Q6H PRN lisinopril 10 mg PO DAILY metformin 500 mg PO BID omeprazole 40 mg PO DAILY prednisone 40 mg (2 x 20 mg) PO DAILY 5 days sodium,potassium,mag sulfates 17.5-3.13-1.6 gram (Suprep Bowel Prep Kit) DILUTE; drink full amount early evening before AND next morning at least 6 hr before procedure; follow w 32 oz. water PO tadalafil 20 mg PO .PRN 30 days tamsulosin 0.4 mg PO DAILY HPI f/up after testing HPI Details Kate is a 62-year-old male with past medical history of hypertension, hyperlipidemia, diabetes, mild aortic stenosis, CVA who presents for follow-up after recent Holter monitor and echocardiogram. Today he reports that he has not patent having any recent neurological changes or heart palpitations. He denies having chest discomfort, shortness of breath, presyncope, syncope, falls. No PND, orthopnea or edema. His activity level is limited by right knee pain. He tells me that many years ago he was kicked by a horse and has had chronic problems with his knee since then. [facility] Medical History Erectile dysfunction Vitamin D deficiency Multinodular thyroid Other and unspecified hyperlipidemia Type 2 diabetes mellitus with unspecified complications Essential hypertension Aortic valve calcification Surgical History History of esophagogastroduodenoscopy (EGD) H/O colonoscopy Family History Father Stroke Brother Stroke Mother Diabetes Social History Household Members: Spouse Housing: House Alcohol intake: never Patient Tobacco Use Status: Former Tobacco user service: No Current occupational status: disabled Cognitive needs: No Hearing needs: No Vision needs: Yes Review of Systems Const All systems reviewed & are unremarkable except as noted in HPI and below ENT Denies dizziness Card Denies chest pain, Denies chest pain at rest, Denies chest pain with activity, Denies rapid heart rate, Denies pedal edema, Denies edema, Denies leg edema, Denies lightheadedness, Denies palpitations, Denies dyspnea, Denies dyspnea on exertion and Denies orthopnea Resp Denies cough, Denies dyspnea and Denies dyspnea on exertion GI Denies hematochezia and Denies change in stool character Musc Details: chronic right knee pain Denies abnormal gait, Denies limited range of motion, Denies muscle cramps, Denies muscle weakness, Denies numbness, Denies radiating pain into limb, Denies stiffness and Denies tingling Neuro Denies abnormal gait, Denies dizziness, Denies numbness and Denies tingling Endo Denies palpitations Physical Exam Vital Signs: Last Vital Signs Pulse 86 02/15/23 09:46 BP 134/90 H 02/15/23 09:46 BMI result Body Mass Index 26.5 Const General: cooperative, healthy appearing, comfortable and no acute distress Orientation/consciousness: patient oriented x3 Neck Neck: Yes normal visual inspection Resp Effort & Inspection: normal respiratory effort Auscultation: clear to auscultation bilaterally, no crackles, no rales, no rhonchi and no wheezes Cardio Jugular venous distension: no JVD Rate: regular rate Rhythm: regular rhythm Heart sounds: S1 normal heart sound present, S2 normal heart sound present, Murmur heart sound present (Systolic, aortic position) and no rubs Neuro General: patient oriented x3 Extrem Other: brace on right knee General: Yes normal to inspection and No no pedal edema Psych Appearance: grossly normal Mental Status: mental status grossly normal Speech and movement: Normal speech and movement present Assessment & Plan Assessment & Plan (1) Aortic stenosis: Code(s): I35.0 - Nonrheumatic aortic (valve) stenosis Plan: Faint Heart murmur noted on examination. Echocardiogram done 01/14/2023 showing EF 55-60%, mild aortic stenosis, possible bicuspid valve. Spent time reviewing this finding with him in detail. Will plan for repeat echo 2 years from last. (2) Heart palpitations: Code(s): R00.2 - Palpitations Plan: History of recent CVA. Symptoms of numbness and tingling in his left upper extremity with numbness around his mouth, right facial droop. CT was negative for acute findings. An MRI confirm no acute stroke but did show chronic microvascular ischemic changes and diffuse volume loss. Seen by Neurology and felt to have a micro infarction with recommendations of good blood sugar and cholesterol control. He has no known history of atrial fibrillation. He did have a 14 day Holter monitor done on 01/14/2023 showing sinus rhythm with average heart rate 81, heart rate range 47 to 151, no rhythm E assists. Pulse i s regular on examination today. He denies any heart palpitations. His minor stroke is most likely related to vascular reason. No concern for AF at present. (3) Essential hypertension: Code(s): I10 - Essential (primary) hypertension Plan: Blood pressure was slight elevation today, elevated diastolic. Well controlled on prior recent office visit. He is on lisinopril 10 mg daily. Blood pressure becomes more elevated than his dose can be further titrated. (4) Stroke: Code(s): I63.9 - Cerebral infarction, unspecified Qualifiers: CVA mechanism: unspecified Qualified Code(s): I63.9 - Cerebral infarction, unspecified Plan: Most likely vascular. As above Coding Level of Care Code Est Pt Level 3 (59511) Diagnoses Aortic stenosis I35.0 Heart palpitations R00.2 Essential hypertension I10 Cerebrovascular accident (CVA), unspecified mechanism I63.9 CVA mechanism: unspecified Time Spent (min) 24
== END 2023-02-15 10:15 | disposition home or self-care (01) ==
PROVIDERS: Visit Provider Nurse Practitioner Family
DX: I35.0 Nonrheumatic aortic (valve) stenosis (principal); R00.2 Palpitations; I10 Essential (primary) hypertension; I63.9 Cerebral infarction, unspecified
CPT/HCPCS: 99213

== ENCOUNTER → 2023-02-15 09:10 | Outpatient (BNVA) | payer MEDICARE, MEDICAID, SELFPAY | PROVIDERS: Visit Provider Nurse Practitioner Family | DX: I35.0 Nonrheumatic aortic (valve) stenosis (principal); I63.9 Cerebral infarction, unspecified; I10 Essential (primary) hypertension; R00.2 Palpitations | CPT/HCPCS: 99212 ==

== ENCOUNTER 2023-02-27 18:55 | Emergency (ER) | payer MEDICARE, MEDICAID, SELFPAY ==
[2023-02-27 19:11] VITALS: BP 118/79; PULSE 85; RESP 18; TEMP 35.8; O2SAT 97; BMI 28.2
[2023-02-27] MEDS: Lidocaine HCl 1 % MPF 5 ML VIAL 10 ML INFILTRATI (20:54)
--- NOTE | 2023-02-27 21:22 | ED_ITS ---
HPI - General Adult General Chief complaint: Wound/Laceration Stated complaint: Lac to thumb/On blood thinners Time Seen by Provider: 02/27/23 20:13 Source: patient, RN notes reviewed and old records reviewed Mode of arrival: ambulatory Limitations: no limitations History of Present Illness HPI narrative: 62-year-old male presents for evaluation of a wound to his right thumb. Patient was cutting a grapefruit with a knife. He accidentally cut the finger pad of his right thumb His tetanus is up-to-date as it was administered in 2019 or 2020 He reports that he takes a baby aspirin but no other blood thinners or anticoagulation No other complaints or concerns at this time Related Data Home Medications Medication Instructions Recorded Confirmed fluoxetine 40 mg capsule 40 mg PO DAILY 03/28/20 02/15/23 hydroxyzine HCl 10 mg tablet 10 mg PO BEDTIME PRN Anxiety 03/28/20 02/15/23 blood sugar diagnostic #10 ea 05/06/20 02/15/23 clonazepam 1 mg tablet 1 mg PO BEDTIME PRN Anxiety 06/17/21 02/15/23 empagliflozin 25 mg tablet 25 mg PO DAILY 06/17/21 02/15/23 (Jardiance) lisinopril 10 mg tablet 10 mg PO DAILY 06/17/21 02/15/23 tamsulosin 0.4 mg capsule 0.4 mg PO DAILY 06/17/21 02/15/23 albuterol sulfate 90 mcg/actuation 2 puff inhalation Q4-6H PRN 08/11/22 02/15/23 aerosol inhaler (Ventolin HFA) wheezing fluticasone propionate 50 1 spray intranasal DAILY 01/18/23 02/15/23 mcg/actuation nasal spray,suspension gabapentin 600 mg tablet 600 mg PO BEDTIME 01/18/23 02/15/23 metformin 500 mg tablet 500 mg PO BID 01/18/23 02/15/23 Previous Rx's Medication Instructions Recorded omeprazole 40 mg capsule,delayed 40 mg PO DAILY #30 caps 04/29/22 release cholecalciferol (vitamin D3) 50 50 mcg PO DAILY 30 days #30 caps 05/04/22 mcg (2,000 unit) capsule aspirin 81 mg tablet,delayed 81 mg PO DAILY #30 tabs 08/12/22 release atorvastatin 80 mg tablet 80 mg PO DAILY #30 tabs 05/17/23 tadalafil 20 mg tablet 20 mg PO .PRN sexual activity 30 08/14/22 days #30 tabs sodium,potassium,mag sulfates 17.5 See Rx Instructions PO .COMPLEX 08/18/22 gram-3.13 gram-1.6 gram oral soln #354 mL (Suprep Bowel Prep Kit) ibuprofen 600 mg tablet 600 mg PO Q6H PRN fever or pain 11/30/22 #30 tabs diphenhydramine HCl 25 mg capsule 25 mg PO TID PRN itching 7 days 01/25/23 (Benadryl) #21 caps epinephrine 0.3 mg/0.3 mL 0.3 mg (0.3 mL) IM Q4H PRN 01/25/23 injection, auto-injector anaphylaxis #2 ea famotidine 20 mg tablet (Pepcid) 20 mg PO BID 5 days #10 tabs 01/25/23 prednisone 20 mg tablet 40 mg (2 x 20 mg) PO DAILY 5 days 01/25/23 #10 tabs dulaglutide 0.75 mg/0.5 mL 0.75 mg (0.5 mL) subcut QWEEK #6 mL 02/13/23 subcutaneous pen injector (TrKisstixx) Allergies Allergy/AdvReac Type Severity Reaction Status Date / Time codeine [CODEINE] Allergy Unknown TACHYCARDIA Verified 02/27/23 19:11 codeine AdvReac Unknown anaphylaxis Uncoded 01/18/23 15:06 Review of Systems Integumentary/Breasts: Skin/Breast: Reports wounds PMFSH Past Medical History Medical History Erectile dysfunction Vitamin D deficiency Multinodular thyroid Other and unspecified hyperlipidemia Type 2 diabetes mellitus with unspecified complications Essential hypertension Aortic valve calcification Surgical History History of esophagogastroduodenoscopy (EGD) H/O colonoscopy Family History Family History Father Stroke Brother Stroke Mother Diabetes Social History Social History Household Members: Spouse Housing: House Alcohol intake: never Patient Tobacco Use Status: Former Tobacco user Advance Directives: No Advance Directives Information Provided: Yes service: No Current occupational status: disabled Cognitive needs: No Hearing needs: No Vision needs: Yes Physical Exam ED Vital Signs: Vital Signs - 24 hr 02/27/23 19:11 Temperature 96.5 F L Pulse Rate 85 Respiratory Rate 18 Blood Pressure 118/79 Pulse Oximetry 97 Oxygen Delivery Method Room Air BMI result Body Mass Index 28.2 Const General: healthy appearing, comfortable, no acute distress, alert and awake Nutritional Appearance: well nourished Orientation/consciousness: patient oriented x3 Resp Effort & Inspection: normal respiratory effort, able to speak in complete sentences and not labored Skin Other: Patient has a 2 cm v-shaped laceration to the finger pad of the right thumb. There is minimal active bleeding. Patient has full range of motion with flexion extension of the right thumb General skin exam: elasticity normal Neuro General: patient oriented x3 Cranial nerves: Yes Bilaterally intact EOM present Cognition (Neuro): normal cognition Extrem Other: Moving all extremities well without any obvious deformities Medications Administered Discontinued Medications Generic Name Dose Route Start Last Admin Trade Name Freq PRN Reason Stop Dose Admin Lidocaine HCl 10 ml 02/27/23 20:26 02/27/23 20:54 Lidocaine Hcl 1 % Mpf 5 Ml Vial INFILTRATI 02/27/23 20:27 10 ml ONCE ONE Administration Procedures Laceration Laceration 1: Site: hand and other (Laceration repair was performed by PA studentNatasha under my direct supervision) Side (If applicable): right (thumb) Size (cm): 2 Description: linear (v-shaped) Depth: simple, single layer Local Anesthetic: lidocaine 1% (Digital block) Amount of anesthesia used (mL): 5 Pre-repair: wound explored and irrigated extensively Skin layer closed with: nylon Size (cm): 5-0 Number of sutures: 8 Technique: simple, interrupted Medical Decision Making Medical Decision Making MDM Narrative: Patient has a small laceration to the right thumb that will require repair, see procedure note. Tetanus is up-to-date Differential Diagnosis Differential Diagnoses: The differential diagnosis associated with the presentation includes Laceration Skin tear Puncture wound Abrasion Discharge Plan Discharge Clinical Impression: Laceration of finger Patient Disposition: Home, Self-Care Instructions: Finger Laceration (ED) Additional Instructions: You had 8 sutures placed today. These can be removed in 7-10 days Keep the area clean and dry Return for new or worsening symptoms Follow-up with your primary doctor Prescriptions: No Action sodium,potassium,mag sulfates [Suprep Bowel Prep Kit] 17.5-3.13-1.6 gram recon soln See Rx Instructions PO .COMPLEX Qty: 354 0RF Rx Instructions: DILUTE; drink full amount early evening before AND next morning at least 6 hr before procedure; follow w 32 oz. water PO Trulicity 0.75 mg/0.5 mL pen injector 0.75 mg subcut QWEEK Qty: 6 1RF ibuprofen 600 mg tablet 600 mg PO Q6H PRN (Reason: fever or pain) Qty: 30 0RF albuterol sulfate [Ventolin HFA] 90 mcg/actuation HFA aerosol inhaler 2 puff inhalation Q4-6H PRN (Reason: wheezing) aspirin 81 mg Tablet,Delayed Release (Dr/Ec) 81 mg PO DAILY Qty: 30 0RF atorvastatin 80 mg Tablet 80 mg PO DAILY Qty: 30 0RF prednisone 20 mg tablet 40 mg PO DAILY 5 Days Qty: 10 0RF diphenhydramine HCl [Benadryl] 25 mg capsule 25 mg PO TID PRN (Reason: itching) 7 Days Qty: 21 0RF famotidine [Pepcid] 20 mg tablet 20 mg PO BID 5 Days Qty: 10 0RF epinephrine 0.3 mg/0.3 mL auto-injector 0.3 mg IM Q4H PRN (Reason: anaphylaxis) Qty: 2 0RF Rx Instructions: inject into thigh if having signs of anyphylaxis. metformin 500 mg tablet 500 mg PO BID gabapentin 600 mg tablet 600 mg PO BEDTIME fluticasone propionate 50 mcg/actuation spray,suspension 1 spray intranasal DAILY Rx Instructions: administer into each nostril fluoxetine 40 mg capsule 40 mg PO DAILY hydroxyzine HCl 10 mg tablet 10 mg PO BEDTIME PRN (Reason: Anxiety) clonazepam 1 mg tablet 1 mg PO BEDTIME PRN (Reason: Anxiety) Jardiance 25 mg tablet 25 mg PO DAILY tamsulosin 0.4 mg capsule 0.4 mg PO DAILY lisinopril 10 mg tablet 10 mg PO DAILY (DME) blood sugar diagnostic Strip See Rx Instructions Not Applicable DAILY Qty: 10 Rx Instructions: As directed omeprazole 40 mg capsule,delayed release(DR/EC) 40 mg PO DAILY Qty: 30 0RF cholecalciferol (vitamin D3) 50 mcg (2,000 unit) capsule 50 mcg PO DAILY 30 Days Qty: 30 11RF tadalafil 20 mg tablet 20 mg PO .PRN 30 Days Qty: 30 1RF Interventions: ED Discharge Assessment Last Done: 02/27/23 21:26 Discharge Date/Time: 02/27/23 21:27
== END 2023-02-27 21:27 | disposition home or self-care (01) ==
PROVIDERS: Emergency Provider Internal Medicine; PCP Nurse Practitioner Family
DX: S61.011A Laceration without foreign body of right thumb without damage to nail, initial encounter (principal); W26.0XXA Contact with knife, initial encounter; E11.9 Type 2 diabetes mellitus without complications; I10 Essential (primary) hypertension; E78.49 Other hyperlipidemia; Z87.891 Personal history of nicotine dependence; Y93.G1 Activity, food preparation and clean up; Y92.030 Kitchen in apartment as the place of occurrence of the external cause; Y99.9 Unspecified external cause status
CPT/HCPCS: 12001; 99282; 99284

== ENCOUNTER 2023-03-04 10:06 | Outpatient (AMB) | payer MEDICARE, MEDICAID, SELFPAY ==
[2023-03-04 10:36] VITALS: BP 122/78; PULSE 78; TEMP 36.6; O2SAT 98
--- NOTE | 2023-03-04 10:36 | AM.OFFWIN_ITS ---
Intake Vital Signs 03/04/23 10:36 Height 5 ft 6 in BP 122/78 Blood Pressure Location Rt brachial Position Sitting Pulse 78 Pulse Source Pulse Oximeter Temp 97.8 F Temp Source Temporal Artery Scan Pulse Oximetry (%) 98 Oxygen Delivery Method Room Air Intake Visit Reasons: EP, stitch removal on right thumb Intake Note: pt is here for right thumb stitch removal Patient Tobacco Use Status: Former Tobacco user Allergies codeine [CODEINE] Allergy (Unknown, Verified 03/04/23 10:37) TACHYCARDIA codeine Adverse Reaction (Unknown, Uncoded 01/18/23 15:06) anaphylaxis Do you need a note to return to daycare/school/sports/work: Yes HPI EP, stitch removal on right thumb HPI Details 62 year old male patient presents today for suture removal from right thumb. Sustained laceration 02/27 while slicing a grapefruit. Had sutures placed in [facility] [place] [facility] ED. Denies any pain, swelling, drainage. [facility] Medical History Erectile dysfunction Vitamin D deficiency Multinodular thyroid Other and unspecified hyperlipidemia Type 2 diabetes mellitus with unspecified complications Essential hypertension Aortic valve calcification Surgical History History of esophagogastroduodenoscopy (EGD) H/O colonoscopy Family History Father Stroke Brother Stroke Mother Diabetes Social History Household Members: Spouse Housing: House Alcohol intake: never Patient Tobacco Use Status: Former Tobacco user service: No Current occupational status: disabled Cognitive needs: No Hearing needs: No Vision needs: Yes Review of Systems Const All systems reviewed & are unremarkable except as noted in HPI and below Physical Exam Vital Signs: Last Vital Signs Temp 97.8 F 03/04/23 10:36 Pulse 78 03/04/23 10:36 BP 122/78 03/04/23 10:36 Pulse Ox 98 03/04/23 10:36 Oxygen Delivery Method Room Air 03/04/23 10:36 Const General: cooperative, healthy appearing and no acute distress Resp Effort & Inspection: normal respiratory effort Skin Other: Laceration right thumb with 8 intact sutures. Lac well approximated and well- healed. No redness, warmth, swelling, or drainage. Extrem General: Yes capillary refill normal and Yes no clubbing, cyanosis or edema Psych Appearance: grossly normal Mental Status: mental status grossly normal Speech and movement: Normal speech and movement present Assessment & Plan Assessment & Plan (1) Encounter for removal of sutures: Code(s): Z48.02 - Encounter for removal of sutures Plan: 8 sutures easily removed from right thumb. Small amount bacitracin applied. Patient tolerated well. (2) Laceration of right thumb: Code(s): S61.011A - Laceration without foreign body of right thumb without damage to nail, initial encounter Qualifiers: Encounter type: subsequent encounter Damage to nail status: without damage Foreign body presence: without foreign body Qualified Code(s): S61.011D - Laceration without foreign body of right thumb without damage to nail, subsequent encounter Plan: Advised to monitor for any redness, wamth, drainage, swelling, opening of laceration and to return to the clinic if any of these occur. Patient agrees to plan. Coding Level of Care Code Est Pt Level 3 (56522) Diagnoses Encounter for removal of sutures Z48.02 Laceration of right thumb without foreign body without damage to nail, subsequent encounter S61.011D Encounter type: subsequent encounter Damage to nail status: without damage Foreign body presence: without foreign body
== END 2023-03-04 11:19 | disposition home or self-care (01) ==
PROVIDERS: PCP Nurse Practitioner Family; Visit Provider Nurse Practitioner Family
DX: S61.011D Laceration without foreign body of right thumb without damage to nail, subsequent encounter (principal); Z48.02 Encounter for removal of sutures
CPT/HCPCS: 15853; 99213

== ENCOUNTER 2023-04-21 14:57 | Outpatient (AMB) | payer MEDICARE, MEDICAID, SELFPAY ==
[2023-04-21 15:38] VITALS: BP 118/74; PULSE 74; O2SAT 97; BMI 28.4
--- NOTE | 2023-04-21 15:38 | A.OFFPC_ITS ---
Vital Signs 04/21/23 15:38 Height 5 ft 6 in Weight 176 lb BMI 28.4 BP 118/74 Blood Pressure Location Rt brachial Position Sitting Pulse 74 Pulse Source Pulse Oximeter Pulse Oximetry (%) 97 Oxygen Delivery Method Room Air Intake Visit Reasons: 4 month f/u Intake Note: Pt is here to follow up for his DM Allergies codeine [CODEINE] Allergy (Unknown, Verified 04/21/23 15:41) TACHYCARDIA codeine Adverse Reaction (Unknown, Uncoded 04/21/23 15:41) anaphylaxis Tobacco use date assessed: 04/21/23 Dental Screening Dental Screen Date: 04/21/23 Did you have a dental visit in the last 12 months?: Yes Did you have a dental problem in the last 6 months where you did not have access to dental care?: No Was dental information given to patient?: Patient has dentist HPI 4 month f/u HPI Details Pt is a diabetic, on an TL and a statin. A1C in office today is 6.1. Microalbumin is up to date. Denies polyuria, polydipsia, and neuropathy. Pt denies any signs and symptoms of hypoglycemia and does know how to correct it. Pt reports that his blood sugar has been in the 90s-110s. Pt c/o abdominal pain. He reports that the pain moves from one side of his abdomen to the other. He also reports intermittent constipation. Recommended OTC miralax. Customer Service Sales Associate in room today. [facility] Medical History Erectile dysfunction Vitamin D deficiency Multinodular thyroid Other and unspecified hyperlipidemia Type 2 diabetes mellitus with unspecified complications Essential hypertension Aortic valve calcification Surgical History History of esophagogastroduodenoscopy (EGD) H/O colonoscopy Family History Father Stroke Brother Stroke Mother Diabetes Social History Household Members: Spouse Housing: House Alcohol intake: never Patient Tobacco Use Status: Former Tobacco user service: No Current occupational status: disabled Cognitive needs: No Hearing needs: No Vision needs: Yes Questionnaire PHQ-9 Over the last 2 weeks, how often have you been bothered by any of the following problems? 90952 - PHQ-9 Billing: Patient declined-do not bill Source: Developed by Drs. Isidoro England, Kylie Fabian, Arnol Muñiz and colleagues, with an educational timur from [employer]. Thrive Questionnaire Date Thrive assessed: 04/21/23 I am a: Patient What is your living situation today?: I have a steady place to live Within the past 12 months, did the food you bought not last and you didn't have the money to get more?: Never true Within the past 12 months, did you worry whether your food would run out before you got money to buy more?: Never true Do you have trouble paying for medicines?: Yes Do you have trouble getting transportation to medical appointments?: No Do you have trouble paying your heating and electricity bill?: No Do you have trouble taking care of your child, family member or friend?: No Do you have trouble with day-to-day activities such as bathing, preparing meals, shopping, managing finances, etc.?: No Are you currently unemployed and looking for a job?: No Are you interested in more education?: No THRIVE Score: 0 LOBO-7 AMB Questionnaire LOBO-7 Date LOBO - 7 assessed: 04/21/23 Source: Developed by Drs. Isidoro England, Kylie Fabian, Arnol Muñiz and colleagues, with an educational timur from [employer]. LOBO-7 Assessment Billing LOBO-7 Assessment Tool: pt declined-do not bill Review of Systems Const Reports as per HPI Physical exam (Primary Care) Vital Signs: Last Vital Signs Pulse 74 04/21/23 15:38 BP 118/74 04/21/23 15:38 Pulse Ox 97 04/21/23 15:38 Oxygen Delivery Method Room Air 04/21/23 15:38 BMI result Body Mass Index 28.4 Tobacco/Smoking Status: Tobacco use Status Tobacco use date assessed 04/21/23 04/21/23 15:44 Patient Tobacco Use Status Former Tobacco user 04/21/23 15:44 Thrive Assessment: Date of Thrive Assessment Date Thrive assessed 04/21/23 04/21/23 15:48 Const General: cooperative Orientation/consciousness: patient oriented x3 Resp Effort & Inspection: normal respiratory effort Auscultation: clear to auscultation bilaterally Cardio Rate: regular rate Rhythm: regular rhythm Heart sounds: S1 normal heart sound present and S2 normal heart sound present GI Palpation (GI): Soft to palpation and nontender Auscultation: normal bowel sounds Neuro General: patient oriented x3 Extrem Other: bilat feet: + sensation with use of monofilament Psych Appearance: grossly normal Mental Status: mental status grossly normal Speech and movement: Normal speech and movement present Affect: normal affect Attitude: cooperative Thought process: Normal thought process present Thought content: Normal thought content present Insight: Good insight present (Psych) Judgement: Good judgement present (Psych) Results AMB Hemoglobin A1c AMB Hemoglobin A1c 6.1 % Last Edit by Siena Diaz CMA on 04/21/23 16: 09 Results Reviewed Results Reviewed: Laboratory Last Values Hgb A1c (Clinic) 6.1 % (4.0-6.0) H 04/21/23 16:08 Assessment and Plan Assessment & Plan (1) Type 2 diabetes mellitus with unspecified complications: Code(s): E11.8 - Type 2 diabetes mellitus with unspecified complications Plan: continue same med regime and diet (2) Constipation: Code(s): K59.00 - Constipation, unspecified Plan: start miralax Plan The patient agreed to the use of a medical office receptionist assistant for this encounter. Scribed for DONTA Carter by Lore Emery medical office receptionist assistant, on 04/21/2023 at 15:55 EST. Orders: Orders Complete Blood Count Auto Diff Today E11.8 - Type 2 diabetes mellitus with unspecified complications Comprehensive [place]. Panel Fast Today E11.8 - Type 2 diabetes mellitus with unspecified complications TSH reflex Free T4 Today E11.8 - Type 2 diabetes mellitus with unspecified complications UA CC w/rflx Micro + Cult Today E11.8 - Type 2 diabetes mellitus with unspecified complications Lipid Panel Today E11.8 - Type 2 diabetes mellitus with unspecified complications Microalbumin, Random (w Creat) Today E11.8 - Type 2 diabetes mellitus with unspecified complications AMB Hemoglobin A1c Today E11.8 - Type 2 diabetes mellitus with unspecified complications Medications: New cholecalciferol (vitamin D3) 50 mcg PO DAILY 90 caps 3RF Refilled atorvastatin 80 mg PO DAILY 30 tabs 0RF Coding Level of Care Code Est Pt Level 3 (93405) Diagnoses Type 2 diabetes mellitus with unspecified complications E11.8 Constipation K59.00
== END 2023-04-21 16:06 | disposition home or self-care (01) ==
PROVIDERS: Visit Provider Nurse Practitioner Family
DX: E11.8 Type 2 diabetes mellitus with unspecified complications (principal); K59.00 Constipation, unspecified
CPT/HCPCS: 83036; 99213

== ENCOUNTER 2023-05-06 14:47 | Outpatient (REF) | payer MEDICARE, MEDICAID, SELFPAY ==
--- NOTE | ~2023-05-06 | US_ITS ---
EXAMINATION: US THYROID CLINICAL INFORMATION: Nontoxic multinodular goiter. COMPARISON: Ultrasound soft tissue head/neck thyroid dated 04/15/2022. TECHNIQUE: Linear transducer grayscale and color Doppler examination with attention to the region of the thyroid. FINDINGS: SIZE: Measurements of the thyroid lobes and nodules are given in sagittal, anteroposterior and transverse dimensions respectively. Right Thyroid Lobe: 5.2 x 2.4 x 2.3 cm, volume 15.0 mL. Previously 5.2 x 2.5 x 2.9 cm, volume 19.7 mL. Parenchyma: The gland echotexture is homogeneous. Thyroid vascularity is normal. Left Thyroid Lobe: 4.9 x 1.9 x 1.6 cm, volume 7.8 mL. Previously 4.7 x 1.8 x 1.6 cm, volume 7.1 mL. Parenchyma: The gland echotexture is homogeneous. Thyroid vascularity is normal. Isthmus: 0.6 cm in maximum AP dimension. Previously 0.5 cm. Estimated total number of nodules greater than or equal to 1 cm: 0. Physician Relations Specialist nodules are described as follows: 1. Location: Right mid/inferior. Size: 0.6 x 0.4 x 0.7 cm, volume 0.1 mL. Previously: 0.7 x 0.4 x 0.6 cm, volume 0.1 mL. Nodule characteristics: Composition: Solid (2). Echogenicity: Isoechoic (1). Shape: Not taller than wide (0). Margins: Smooth (0). Echogenic Foci: None (0). ACR TI-RADS total points: 3 Previous: 0 ACR TI-RADS category: 3 Previous: 1 Significant change in size (>/= 20% in 2 dimensions and minimal increase of 2 mm or 50% or greater increase in volume): No Change in features: Yes. The nodule appears more solid and less spongiform compared to most recent prior. Change in ACR TI-RADS risk category: Yes 2. Location: Left mid. Size: 0.3 x 0.3 x 0.3 cm, volume 0.01 mL. Previously: 0.3 x 0.3 x 0.2 cm, volume 0.01 mL. Nodule characteristics: Composition: Cystic(0). ACR TI-RADS total points: 0 Previous: 0 ACR TI-RADS category: 1 Previous: 1 Significant change in size (>/= 20% in 2 dimensions and minimal increase of 2 mm or 50% or greater increase in volume): No Change in features: No Change in ACR TI-RADS risk category: No NODES: No lymphadenopathy is seen in the tissue surrounding the thyroid gland. US/US thyroid IMPRESSION: 1. Redemonstration of nonspecific asymmetric enlargement of the right lobe of the thyroid. 2. There are 2 subcentimeter thyroid nodules, one consistent with a colloid cyst in the left mid gland measuring 0.3 cm and the other one in the right mid to lower gland characterized as a TR 3 nodule measuring 0.7 cm. These do not meet size criteria for further evaluation according to the ACR guidelines below. ACR TI-RADS RECOMMENDATION REFERENCE: Ultrasound-guided fine-needle aspiration, follow up ultrasound, no further followup. * TR1 (0 point) and TR2 (2 points): No FNA or followup * TR3 (3 points): FNA if more than or equal to 2.5 cm in maximum dimension, follow up ultrasound in 1, 3 and 5 years if 1.5 to 2.4 cm in maximum dimension. * TR4 (4-6 points): FNA if more than or equal to 1.5 cm in maximum dimension, follow up ultrasound in 1, 2, 3 and 5 years if 1 to 1.4 cm in maximum dimension. * TR5 (more than or equal to 7 points): FNA if more than or equal to 1 cm in maximum dimension, follow up ultrasound every year for 5 years if 0.5 to 0.9 cm in maximum dimension. * TR3, TR4 or TR5 nodules that are below the size threshold for follow up receive no followup.
== END 2023-05-06 14:48 | disposition home or self-care (01) ==
LOC: HO.US 14:47
PROVIDERS: PCP Nurse Practitioner Family; Visit Provider Internal Medicine Endocrinology, Diabetes & Metabolism
DX: E04.2 Nontoxic multinodular goiter (principal)
CPT/HCPCS: 76536

== ENCOUNTER 2023-07-19 06:11 | Outpatient (REF) | payer MEDICARE, MEDICAID, SELFPAY ==
[2023-07-19 11:21] LABS: Free T4 (Free Thyroxine) 0.89 ng/dL (0.71-1.85); Thyroid Stimulating Hormone 2.31 uIU/mL (0.32-4.0)
== END 2023-07-19 06:12 | disposition home or self-care (01) ==
LOC: HO.HMGCLDS 06:11
PROVIDERS: PCP Nurse Practitioner Family; Visit Provider Internal Medicine Endocrinology, Diabetes & Metabolism
DX: E04.2 Nontoxic multinodular goiter (principal)
CPT/HCPCS: 36415; 84439; 84443; 99212

== ENCOUNTER 2023-07-19 15:06 | Outpatient (AMB) | payer MEDICARE, MEDICAID, SELFPAY ==
[2023-07-19 15:18] VITALS: BP 100/72; PULSE 77; BMI 28.1
--- NOTE | 2023-07-19 15:18 | MHC.OFFVIS ---
Vital Signs 07/19/23 15:18 Height 5 ft 6 in Weight 174 lb 6.17 oz BMI 28.1 BP 100/72 Blood Pressure Location Lt brachial Position Sitting Pulse 77 Pulse Source Pulse Oximeter Intake Visit Reasons: F/U NTMNG-lvm Intake Note: Patient presents today for NTMNG follow up visit. Occupational Work Experience Teacher Required: Yes Occupational Work Experience Teacher Language: Ingot Supervisor Name: Shadia Information Interpreted: non-clinical & clinical Accompanied by: Self / Same As Patient Allergies codeine [CODEINE] Allergy (Unknown, Verified 07/19/23 15:25) TACHYCARDIA codeine Adverse Reaction (Unknown, Uncoded 07/19/23 15:25) anaphylaxis Medication List - Last Reconciled 07/19/23 by Isidoro Garcia MD albuterol sulfate 90 mcg/actuation (Ventolin HFA) 2 puffs inhalation Q4-6H PRN aspirin 81 mg PO DAILY atorvastatin 80 mg PO DAILY blood sugar diagnostic As directed cholecalciferol (vitamin D3) 50 mcg PO DAILY cholecalciferol (vitamin D3) 50 mcg PO DAILY 30 days clonazepam 1 mg PO BEDTIME PRN diphenhydramine HCl (Benadryl) 25 mg PO TID PRN 7 days dulaglutide (Trulicity) 0.75 mg (0.5 mL) subcut QWEEK empagliflozin (Jardiance) 25 mg PO DAILY epinephrine 0.3 mg (0.3 mL) IM Q4H PRN famotidine (Pepcid) 20 mg PO BID 5 days fluoxetine 40 mg PO DAILY fluticasone propionate 50 mcg/actuation 1 spray intranasal DAILY gabapentin 600 mg PO BEDTIME hydroxyzine HCl 10 mg PO BEDTIME PRN ibuprofen 600 mg PO Q6H PRN lancets (FreeStyle Lancets) As directed lisinopril 10 mg PO DAILY metformin 500 mg PO BID omeprazole 40 mg PO DAILY tadalafil 20 mg PO .PRN tamsulosin 0.4 mg PO DAILY HPI Comments Details: 62 YO Male who is seen in F/U for a solitary subcentimeter thyroid nodule. The patient last saw Dr. Elias on 05/04/2022 He denies any dysphagia. Denies compressive symptoms. This was found incidentally after he was seen for erectile dysfunction that was found to be structural in nature. He denies any compressive symptoms or dysphagia. He reports feeling well other than abdominal pain. Thyroid US: 04/15/2022 Right Thyroid Lobe: 5.2 x 2.5 x 2.9 cm, volume 19.7 mL. Previously 5.1 x 2.7 x 2.0 cm, volume 14.5 mL. Parenchyma: The gland echotexture is homogeneous. Thyroid vascularity is normal. Left Thyroid Lobe: 4.7 x 1.8 x 1.6 cm, volume 7.1 mL. Previously 4.7 x 3.0 x 1.5 cm, volume 10.9 mL. Parenchyma: The gland echotexture is homogeneous. Thyroid vascularity is normal. Isthmus: 0.47 cm in maximum AP dimension. Previously 0.60 cm. Estimated total number of nodules greater than or equal to 1 cm: 0. Metal Window Screen Assembler nodules are described as follows: 1.? Location: Right mid inferior. ?? ? Size: 0.66 x 0.37 x 0.57 cm, volume 0.07 mL. ?? ? Previously: 0.62 x 0.39 x 0.53 cm, volume 0.06 mL. ?? ? Nodule characteristics: ?? ? Composition: Spongiform (0). ?? ? Echogenicity: Anechoic (0). ?? ? Shape: Not taller than wide (0). ?? ? Margins: Smooth (0). ?? ? Echogenic Foci: None (0).? ACR TI-RADS total points: 0 Previous: 0 ?? ? ACR TI-RADS category: 1 Previous: 1 ?? ? 2.? Location: Left mid. ?? ? Size: 0.31 x 0.33 x 0.21 cm, volume 0.01 mL. ?? ? Previously: 0.24 x 0.23 x 0.25 cm, volume 0.008 mL. ?? ? Nodule characteristics: ?? ? Composition: Cystic(0). ? ? ? ACR TI-RADS total points: 0 Previous: 0 ?? ? ACR TI-RADS category: 1 Previous: 1 ?? ? NODES: No lymphadenopathy is seen in the tissue surrounding the thyroid gland. Labs: Laboratory Tests 04/28/22 13:15 25-OH Vitamin D Total 24.7 TSH 2.02 Free T4 0.94 PFS Medical History Erectile dysfunction Vitamin D deficiency Multinodular thyroid Other and unspecified hyperlipidemia Type 2 diabetes mellitus with unspecified complications Essential hypertension Aortic valve calcification Surgical History History of esophagogastroduodenoscopy (EGD) H/O colonoscopy Family History Father Stroke Brother Stroke Mother Diabetes Social History Household Members: Spouse Housing: House Alcohol intake: never Patient Tobacco Use Status: Former Tobacco user service: No Current occupational status: disabled Cognitive needs: No Hearing needs: No Vision needs: Yes Physical Exam Vital Signs: Last Vital Signs Pulse 77 07/19/23 15:18 BP 100/72 07/19/23 15:18 BMI result Body Mass Index 28.1 Const Other: Thyroid gland is normal size weighs about 15 g. There are no thyroid nodules palpable Assessment & Plan Assessment & Plan (1) Multinodular thyroid: Code(s): E04.2 - Nontoxic multinodular goiter Category: Medical Plan: This is a 62-year-old male with a history of multinodular goiter with subcentimeter nodules. He appears to be clinically and biochemically euthyroid. Nodules are of low suspicion on ultrasound At this point, patient returned to the care of his primary care provider. There is no need for any further endocrine follow-up.
== END 2023-07-19 15:34 | disposition home or self-care (01) ==
LOC: HO.ENCR 15:14
PROVIDERS: PCP Nurse Practitioner Family; Visit Provider Internal Medicine Endocrinology, Diabetes & Metabolism
DX: E04.2 Nontoxic multinodular goiter (principal)
CPT/HCPCS: 99213

== ENCOUNTER 2023-08-09 08:01 | Outpatient (REF) | payer MEDICARE, MEDICAID, SELFPAY ==
[2023-08-09 10:20] LABS: Appearance Urine Clear; Color Urine Yellow; Glucose Urine UA Negative (Negative); Leukocyte Esterase Urine Negative (Negative); Nitrite Urine Negative (Negative); PH 6.5 (5.0-9.0); Specific Gravity - Urine 1.015 (1.005-1.025); Urine Blood Negative (Negative); Urine Ketones Negative (Negative); Urine Protein Negative (Neg-Trace)
[2023-08-09 10:22] LABS: MANUAL DIFF FLAG NO
[2023-08-09 10:27] LABS: Basophils Percent Auto 0.6 % (0-2); Eosinophils Absolute Auto 0.2 X10*3/uL (0.0-0.4); Eosinophils Percent Auto 3.9 % (0-4); Hematocrit 51.6 % (42.0-52.0); Hemoglobin 17.8 g/dl (14.0-18.0); Imm Gran Abs Auto 0.01 X10*3/uL (0.00-0.03); Imm Gran Pct Auto 0.2 % (0.0-0.4); Lymphocytes Absolute Auto 1.8 X10*3/uL (1.2-4.9); Lymphocytes Percent Auto 35.7 % (20-40); Mean Corpuscular HGB Conc 34.5 g/dl (31.0-36.0); Mean Corpuscular Hemoglobin 28.9 pg (27.0-33.0); Mean Corpuscular Volume 83.8 fL (80.0-98.0); Mean Platelet Volume 10.4 fL (9.4-12.4); Monocytes Absolute Auto 0.4 X10*3/uL (0.1-1.2); Monocytes Percent Auto 8.5 % (2-11); Neutrophils Absolute Auto 2.5 x10*3/uL (2.0-8.3); Neutrophils Percent Auto 51.1 % (45-73); Platelet Count 191 X10*3/uL (160-400); Red Blood Count 6.16 X10*6/uL (4.60-5.80); Red Cell Distribution Width 12.3 % (11.0-16.0); White Blood Count 4.9 X10*3/uL (4.8-10.8)
[2023-08-09 11:02] LABS: Alanine Aminotransferase 79 U/L (0-40); Albumin Level 4.3 g/dL (3.5-5.0); Alkaline Phosphatase 120 U/L (39-117); Anion Gap 15 (12-20); Aspartate Amino Transferase 38 U/L (5-37); Bilirubin Total 0.6 mg/dL (0.0-1.0); Blood Urea Nitrogen 17 mg/dL (9-16); Calcium 9.6 mg/dL (8.4-10.2); Carbon Dioxide 28 mmol/L (22-29); Chloride 101 mmol/L (96-108); Cholesterol 145 mg/dL (<200); Estimated Glomerular Filt Rate > 60; Glucose Fasting 150 mg/dL (60-99); HDL Cholesterol 38 mg/dL (>40); LDL Cholesterol Calculated 75 mg/dL (<100); Potassium 3.8 mmol/L (3.3-5.1); Sodium 140 mmol/L (135-145); Total Protein 7.6 g/dL (6.5-8.0); Triglycerides 162 mg/dL (<150)
[2023-08-09 11:07] LABS: Creatinine Urine 104.88 mg/dL; Microalbum/Creatinine Ratio Ur 51.4 ug/mg cr (<30)
[2023-08-09 11:19] LABS: TSH reflex Free T4 1.59 uIU/mL (0.32-4.0)
== END 2023-08-09 08:02 | disposition home or self-care (01) ==
LOC: HO.HMGCLDS 08:01
PROVIDERS: PCP Nurse Practitioner Family; Visit Provider Nurse Practitioner Family
DX: E11.8 Type 2 diabetes mellitus with unspecified complications (principal)
CPT/HCPCS: 36415; 80053; 80061; 81003; 82043; 82570; 84443; 85025

== ENCOUNTER 2023-08-11 09:52 | Outpatient (AMB) | payer MEDICARE, MEDICAID, SELFPAY ==
--- NOTE | 2023-08-11 09:54 | A.OFFPC_ITS ---
Vital Signs 08/11/23 09:57 Weight 175 lb BP 110/68 Blood Pressure Location Rt brachial Position Sitting Pulse 74 Pulse Source Pulse Oximeter Pulse Oximetry (%) 98 Oxygen Delivery Method Room Air Intake Visit Reasons: 4 month f/u Intake Note: Patient here to follow up on abdominal pain which has gotten better, he would also like to talk about blurred vision. Allergies codeine [CODEINE] Allergy (Unknown, Verified 08/11/23 10:04) TACHYCARDIA codeine Adverse Reaction (Unknown, Uncoded 08/11/23 10:04) anaphylaxis Medication List - Last Reconciled 08/11/23 by Enmanuel Crowder, MARBLE MACHINE OPERATOR- albuterol sulfate 90 mcg/actuation (Ventolin HFA) 2 puffs inhalation Q4-6H PRN aspirin 81 mg PO DAILY atorvastatin 80 mg PO DAILY blood sugar diagnostic As directed cholecalciferol (vitamin D3) 50 mcg PO DAILY cholecalciferol (vitamin D3) 50 mcg PO DAILY 30 days clonazepam 1 mg PO BEDTIME PRN diphenhydramine HCl (Benadryl) 25 mg PO TID PRN 7 days dulaglutide (Trulicity) 0.75 mg (0.5 mL) subcut QWEEK empagliflozin (Jardiance) 25 mg PO DAILY epinephrine 0.3 mg (0.3 mL) IM Q4H PRN famotidine (Pepcid) 20 mg PO BID 5 days fluoxetine 40 mg PO DAILY fluticasone propionate 50 mcg/actuation 1 spray intranasal DAILY gabapentin 600 mg PO BEDTIME hydroxyzine HCl 10 mg PO BEDTIME PRN ibuprofen 600 mg PO Q6H PRN lancets (FreeStyle Lancets) As directed lisinopril 10 mg PO DAILY metformin 500 mg PO BID omeprazole 40 mg PO DAILY tadalafil 20 mg PO .PRN tamsulosin 0.4 mg PO DAILY Tobacco use date assessed: 04/21/23 Dental Screening Dental Screen Date: 04/21/23 HPI 4 month f/u HPI Details Pt is a diabetic, on an TL and a statin. A1C in office today is 7.0. Microalbumin is up to date. Denies polyuria, polydipsia, and neuropathy. Pt denies any signs and symptoms of hypoglycemia and does know how to correct it. Pt reports that his blood sugar this morning was 154. Pt reports being out of jardiance and trulicity for 1 month, will resend. Will have pt start with half a tab of jardiance for the first week. Eye exam is up to date. Pt's liver enzymes and alk phos were elevated. Denies any abdominal pain. Will order labs including hepatitis screen and US. Due for PSA, will order. Denies dribbling with urination, weak stream, and frequent nocturia. Pt would like STD testing, though denies any symptoms, will order. [facility] Medical History Erectile dysfunction Vitamin D deficiency Multinodular thyroid Other and unspecified hyperlipidemia Type 2 diabetes mellitus with unspecified complications Essential hypertension Aortic valve calcification Surgical History History of esophagogastroduodenoscopy (EGD) H/O colonoscopy Family History Father Stroke Brother Stroke Mother Diabetes Social History Household Members: Spouse Housing: House Alcohol intake: never Patient Tobacco Use Status: Former Tobacco user service: No Current occupational status: disabled Cognitive needs: No Hearing needs: No Vision needs: Yes Questionnaire Thrive Questionnaire Date Thrive assessed: 04/21/23 LOBO-7 AMB Questionnaire LOBO-7 Date LOBO - 7 assessed: 04/21/23 Source: Developed by Drs. Isidoro England, Kylie Fabian, Arnol Muñiz and colleagues, with an educational timur from [employer]. Review of Systems Const Reports as per HPI Physical exam (Primary Care) Vital Signs: Last Vital Signs Pulse 74 08/11/23 09:57 BP 110/68 08/11/23 09:57 Pulse Ox 98 08/11/23 09:57 Oxygen Delivery Method Room Air 08/11/23 09:57 Tobacco/Smoking Status: Tobacco use Status Tobacco use date assessed 04/21/23 08/11/23 09:54 Patient Tobacco Use Status Former Tobacco user 08/11/23 09:54 Thrive Assessment: Date of Thrive Assessment Date Thrive assessed 04/21/23 08/11/23 09:54 Const General: cooperative Orientation/consciousness: patient oriented x3 Resp Effort & Inspection: normal respiratory effort Auscultation: clear to auscultation bilaterally Cardio Rate: regular rate Rhythm: regular rhythm Heart sounds: S1 normal heart sound present, S2 normal heart sound present and Murmur heart sound present systolic GI Other: no abdominal pain with palpation Neuro General: patient oriented x3 Extrem Other: bilat feet: + sensation with use of monofilament, feet intact Psych Appearance: grossly normal Mental Status: mental status grossly normal Speech and movement: Normal speech and movement present Affect: normal affect Attitude: cooperative Thought process: Normal thought process present Thought content: Normal thought content present Insight: Good insight present (Psych) Judgement: Good judgement present (Psych) Results AMB Hemoglobin A1c AMB Hemoglobin A1c 7.0 % Last Edit by MIGUEL A Molina on 08/11/23 10 :32 Results Reviewed Results Reviewed: Laboratory Last Values Hgb A1c (Clinic) 7.0 % (4.0-6.0) H 08/11/23 10:22 Assessment and Plan Assessment & Plan (1) Elevated liver enzymes: Code(s): R74.8 - Abnormal levels of other serum enzymes Plan: US and hepatitis screen ordered (2) Erectile dysfunction associated with type 2 diabetes mellitus: Code(s): E11.69 - Type 2 diabetes mellitus with other specified complication; N52.1 - E rectile dysfunction due to diseases classified elsewhere Plan: Labs ordered, meds sent (3) Screening PSA (prostate specific antigen): Code(s): Z12.5 - Encounter for screening for malignant neoplasm of prostate Plan: PSA ordered (4) Screen for STD (sexually transmitted disease): Code(s): Z11.3 - Encounter for screening for infections with a predominantly sexual mode of transmission Plan: pt requested this testing, though denies any symptoms Plan The patient agreed to the use of a medical administrative assistant for this encounter. Scribed for DONTA Carter by Lroe Emery medical administrative assistant, on 08/11/2023 at 10:10 EST. Orders: Orders Hepatitis A,B,C Profile Today R74.8 - Abnormal levels of other serum enzymes Syphilis Screen Today Z11.3 - Encounter for screening for infections with a predominantly sexual mode of transmission AMB Hemoglobin A1c Today Z13.9 - Encounter for screening, unspecified US abdomen complete Today R74.8 - Abnormal levels of other serum enzymes Gamma Glutamyl Transpeptidase Today E11.69 - Type 2 diabetes mellitus with other specified complication, N52.1 - Erectile dysfunction due to diseases classified elsewhere, R74.8 - Abnormal levels of other serum enzymes Alkaline Phosphatase Isoenzyme Today E11.69 - Type 2 diabetes mellitus with other specified complication, N52.1 - Erectile dysfunction due to diseases classified elsewhere, R74.8 - Abnormal levels of other serum enzymes Prostate Specific Antigen Scr Today Z12.5 - Encounter for screening for malignant neoplasm of prostate Comprehensive Met. Panel Today R74.8 - Abnormal levels of other serum enzymes HIV Ab/Ag Today Z11.3 - Encounter for screening for infections with a predominantly sexual mode of transmission CT NG by PCR Today Z11.3 - Encounter for screening for infections with a predominantly sexual mode of transmission Medications: Refilled empagliflozin (Jardiance) 25 mg PO DAILY 90 tabs 0RF dulaglutide (Trulicity) 0.75 mg (0.5 mL) subcut QWEEK 6 mL 1RF empagliflozin (Jardiance) 25 mg PO DAILY 90 tabs 4RF atorvastatin 80 mg PO DAILY 90 tabs 4RF Coding Level of Care Code Est Pt Level 3 (36280) Diagnoses Elevated liver enzymes R74.8 Erectile dysfunction associated with type 2 diabetes mellitus E11.69; N52.1 Screening PSA (prostate specific antigen) Z12.5 Screen for STD (sexually transmitted disease) Z11.3
[2023-08-11 09:57] VITALS: BP 110/68; PULSE 74; O2SAT 98
== END 2023-08-11 11:47 | disposition home or self-care (01) ==
PROVIDERS: PCP Nurse Practitioner Family; Visit Provider Nurse Practitioner Family
DX: R74.8 Abnormal levels of other serum enzymes (principal); E11.69 Type 2 diabetes mellitus with other specified complication; N52.1 Erectile dysfunction due to diseases classified elsewhere; Z12.5 Encounter for screening for malignant neoplasm of prostate; Z11.3 Encounter for screening for infections with a predominantly sexual mode of transmission; Z13.9 Encounter for screening, unspecified
CPT/HCPCS: 83036; 99213

== ENCOUNTER 2023-08-11 10:44 | Outpatient (REF) | payer MEDICARE, MEDICAID, SELFPAY ==
[2023-08-11 13:46] LABS: Alanine Aminotransferase 68 U/L (0-40); Albumin Level 4.3 g/dL (3.5-5.0); Alkaline Phosphatase 115 U/L (39-117); Anion Gap 12 (12-20); Aspartate Amino Transferase 33 U/L (5-37); Bilirubin Total 0.6 mg/dL (0.0-1.0); Blood Urea Nitrogen 17 mg/dL (9-16); Calcium 9.5 mg/dL (8.4-10.2); Carbon Dioxide 27 mmol/L (22-29); Chloride 103 mmol/L (96-108); Estimated Glomerular Filt Rate > 60; Gamma Glutamyl Transpeptidase 87 U/L (11-51); Glucose Random 136 mg/dL (60-115); Sodium 138 mmol/L (135-145); Total Protein 7.5 g/dL (6.5-8.0)
[2023-08-11 13:57] LABS: Prostate Specific Antigen Scr 1.06 ng/mL (<0.05-4.0)
[2023-08-12 08:22] LABS: HBS Num1 0.65 mIU/mL (0-7.99); HBc Num1 0.13 S/CO (0.00-0.79); HBsAGNum1 0.22 S/CO (0.00-0.99); HIV AB/AG Nonreactive (Nonreactive); HIV Num 1 0.04 S/CO (0.00-0.99); Hepatitis A Antibody IgM 0.43 Index (0-0.79); Hepatitis B Core Antibody Nonreactive (Nonreactive); Hepatitis B Surface Antigen Negative (Negative); ~Hepatitis A Antibody IgM Nonreactive (Nonreactive); ~Hepatitis B Surface Antibody NONREACTIVE (Nonreactive); ~Hepatitis C Antibody Nonreactive (Nonreactive)
[2023-08-12 08:25] LABS: Syphilis Screen Nonreactive (Nonreactive)
[2023-08-14 19:03] LABS: Alk.Phos Iso. Macrohepatic 0 % (<=0); Alk.Phos Isoenzymes Bone 23 % (28-66); Alk.Phos Isoenzymes Intest 33 % (1-24); Alk.Phos Isoenzymes Liver 44 % (25-69); Alk.Phos Isoenzymes Placental 0 % (<=0); Alk.Phos Isoenzymes Total 101 U/L (35-144)
== END 2023-08-11 10:45 | disposition home or self-care (01) ==
LOC: HO.HMGCLDS 10:44
PROVIDERS: PCP Nurse Practitioner Family; Visit Provider Nurse Practitioner Family
DX: E11.69 Type 2 diabetes mellitus with other specified complication (principal); N52.1 Erectile dysfunction due to diseases classified elsewhere; R74.8 Abnormal levels of other serum enzymes; Z20.2 Contact with and (suspected) exposure to infections with a predominantly sexual mode of transmission; Z12.5 Encounter for screening for malignant neoplasm of prostate
CPT/HCPCS: 36415; 80053; 82977; 84080; 84153; 86704; 86706; 86709; 86780; 86803; 87340; 87389

== ENCOUNTER 2023-08-20 11:06 | Outpatient (AMB) | payer MEDICARE, MEDICAID, SELFPAY ==
--- NOTE | 2023-08-20 11:28 | A.OFFVIS_ITS ---
Intake Visit Reasons: 1y follow up Allergies codeine [CODEINE] Allergy (Unknown, Verified 09/01/23 11:50) TACHYCARDIA codeine Adverse Reaction (Unknown, Uncoded 09/01/23 11:50) anaphylaxis Medication List - Last Reconciled 08/20/23 by Fredy Cardenas MD albuterol sulfate 90 mcg/actuation (Ventolin HFA) 2 puffs inhalation Q4-6H PRN aspirin 81 mg PO DAILY atorvastatin 80 mg PO DAILY blood sugar diagnostic As directed cholecalciferol (vitamin D3) 50 mcg PO DAILY cholecalciferol (vitamin D3) 50 mcg PO DAILY 30 days clonazepam 1 mg PO BEDTIME PRN diphenhydramine HCl (Benadryl) 25 mg PO TID PRN 7 days dulaglutide (Trulicity) 0.75 mg (0.5 mL) subcut QWEEK empagliflozin (Jardiance) 25 mg PO DAILY epinephrine 0.3 mg (0.3 mL) IM Q4H PRN famotidine (Pepcid) 20 mg PO BID 5 days fluoxetine 40 mg PO DAILY fluticasone propionate 50 mcg/actuation 1 spray intranasal DAILY gabapentin 600 mg PO BEDTIME hydroxyzine HCl 10 mg PO BEDTIME PRN ibuprofen 600 mg PO Q6H PRN lancets (FreeStyle Lancets) As directed lisinopril 10 mg PO DAILY metformin 500 mg PO BID omeprazole 40 mg PO DAILY tadalafil 5 mg PO DAILY 90 days tamsulosin 0.4 mg PO BEDTIME 90 days HPI Comments Details: Jessica is a pleasant male. He is a patient of Dr. Camarillo. He is seen for the following urologic conditions - erectile dysfunction Twelve month follow-up PSA low Continue good response to on demand tadalafil Refill provided with daily and on demand 1 year follow-up Erectile dysfunction Background of diabetes and hypertension Prior history smoking Prior history penile fracture Does well with Cialis PSA 08/18 1.1, 08/19 1.1 Therapeutic plan continue tamsulosin and on demand tadalafil PFS Medical History Erectile dysfunction Vitamin D deficiency Multinodular thyroid Other and unspecified hyperlipidemia Type 2 diabetes mellitus with unspecified complications Essential hypertension Aortic valve calcification Surgical History History of esophagogastroduodenoscopy (EGD) H/O colonoscopy Family History Father Stroke Brother Stroke Mother Diabetes Social History Household Members: Spouse Housing: House Alcohol intake: never Patient Tobacco Use Status: Former Tobacco user service: No Current occupational status: disabled Cognitive needs: No Hearing needs: No Vision needs: Yes Review of Systems Const Denies chills and Denies fever(s) Card Reports no additional complaints and Denies syncope Resp Denies cough GI Denies abdominal pain and Denies heartburn Reports as per HPI and Denies change in libido Neuro Denies syncope Psych Denies change in libido Endo Denies change in libido Physical Exam Const General: cooperative, healthy appearing, comfortable and no acute distress Orientation/consciousness: patient oriented x3 HEENT Face and sinus: Yes normal facial exam Mouth: moist mucous membranes Neck Neck: Yes normal visual inspection, Yes full ROM and Yes trachea midline Chest Chest palpation & inspection: normal inspection of the chest Resp Effort & Inspection: normal respiratory effort, able to speak in complete sentences and no respiratory distress GI Inspection: Yes normal to inspection Back/Spine/Pelvis Cervical Spine: normal cervical lordosis Thoracic/Lumbar Spine: thoracic and lumbar spine normal to inspection Skin General skin exam: no rashes or lesions noted Neuro General: patient oriented x3, gait normal, tone normal and moves all extremities Extrem General: Yes normal to inspection and Yes capillary refill normal Assessment & Plan Assessment & Plan (1) Erectile dysfunction associated with type 2 diabetes mellitus: Code(s): E11.69 - Type 2 diabetes mellitus with other specified complication; N52.1 - Erectile dysfunction due to diseases classified elsewhere Category: Medical (2) Urinary hesitancy: Code(s): R39.11 - Hesitancy of micturition Category: Medical (3) Weak urinary stream: Code(s): R39.12 - Poor urinary stream Category: Medical Plan Refill medications 12 month follow-up Medications: Changed From tamsulosin 0.4 mg PO DAILY To tamsulosin 0.4 mg PO BEDTIME 90 caps 3RF 90 days From tadalafil 20 mg PO .PRN sexual activity E11.69 - Type 2 diabetes mellitus with other specified complication, N52.1 - Erectile dysfunction due to diseases classified elsewhere To tadalafil Take daily for bladder and erections 5 mg PO DAILY 90 tabs 1RF sexual activity 90 days E11.69 - Type 2 diabetes mellitus with other specified co mplication, N52.1 - Erectile dysfunction due to diseases classified elsewhere Patient Instructions: Imaging studies, laboratory and physical exam results were discussed and reviewed in detail. No major barriers to patient understanding were identified. An opportunity to ask questions regarding the treatment plan was provided. All questions were answered. The patient expressed understanding and agreement with the above treatment plan. The patient is aware they should contact our office by phone for worsening of their current condition or the appearance of new urologic symptoms. Compliance is encouraged with any medications and followup testing that is ordered. It is a privilege to participate in the urologic care of your patient. If you have any questions or concerns regarding treatment for the above conditions, or other urologic issues, please do not hesitate to contact me. The office telephone contact is [phone]. This note is constructed using voice recognition software. While every effort has been made to ensure accuracy sexual assault counsellor errors may have been included. Yours sincerely, Dr Fredy Cardenas MD, [facility] - Urology Providers of Expert, Compassionate Care for the Genitourinary System Coding Level of Care Code Est Pt Level 4 (25773) Diagnoses Erectile dysfunction associated with type 2 diabetes mellitus E11.; N52.1 Urinary hesitancy R39.11 Weak urinary stream R39.12
== END 2023-08-20 12:00 | disposition home or self-care (01) ==
PROVIDERS: Visit Provider Urology
DX: E11.69 Type 2 diabetes mellitus with other specified complication (principal); N52.1 Erectile dysfunction due to diseases classified elsewhere; R39.11 Hesitancy of micturition; R39.12 Poor urinary stream
CPT/HCPCS: 99214

== ENCOUNTER → 2023-08-20 11:06 | Outpatient (BNVA) | payer MEDICARE, MEDICAID, SELFPAY | PROVIDERS: Visit Provider Urology | DX: E11.69 Type 2 diabetes mellitus with other specified complication (principal); N52.1 Erectile dysfunction due to diseases classified elsewhere; R39.11 Hesitancy of micturition; R39.12 Poor urinary stream | CPT/HCPCS: 99212 ==

== ENCOUNTER 2023-08-24 08:15 | Outpatient (REF) | payer MEDICARE, MEDICAID, SELFPAY ==
--- NOTE | ~2023-08-24 | US_ITS ---
EXAMINATION: US ABDOMEN COMPLETE CLINICAL INFORMATION: Abnormal levels of other serum enzymes. COMPARISON: CT abdomen and pelvis 11/30/2022. TECHNIQUE: Real-time imaging of the abdominal viscera. Limited visualization due to bowel gas. FINDINGS: PANCREAS: Limited visualization. ABDOMINAL AORTA: The proximal, mid, and distal segments are normal in caliber. INFERIOR VENA CAVA: Visualized portions are normal. LIVER: Mildly increased hepatic parenchymal heterogeneity and echogenicity could be associated with hepatocellular disease/hepatic steatosis and substantially limits visualization. Correlation with liver function tests and clinical exam recommended to determine further management. GALLBLADDER: No gallstones. COMMON BILE DUCT: Normal in caliber measuring 0.2 cm in diameter. RIGHT KIDNEY: No hydronephrosis. No renal calculi. Limited visualization. The kidney measures 10.3 cm in maximum dimension. LEFT KIDNEY: No hydronephrosis. No renal calculi. Limited visualization. The kidney measures 10.9 cm in maximum dimension. SPLEEN: Normal. The spleen measures 10.5 cm in maximum dimension. FREE FLUID: None. US/US abdomen complete IMPRESSION: Mildly increased hepatic parenchymal heterogeneity and echogenicity could be associated with hepatocellular disease/hepatic steatosis and substantially limits visualization. Correlation with liver function tests and clinical exam recommended to determine further management.
== END 2023-08-24 08:16 | disposition home or self-care (01) ==
LOC: HO.US 08:15
PROVIDERS: PCP Nurse Practitioner Family; Visit Provider Nurse Practitioner Family
DX: R74.8 Abnormal levels of other serum enzymes (principal)
CPT/HCPCS: 76700

== ENCOUNTER 2023-09-01 11:43 | Outpatient (AMB) | payer MEDICARE, MEDICAID, SELFPAY ==
[2023-09-01 11:48] VITALS: BP 120/90; PULSE 113; TEMP 36.5; O2SAT 95; BMI 27.8
--- NOTE | 2023-09-01 11:48 | MHC.OFFWIV ---
Intake Vital Signs 09/01/23 11:48 Height 5 ft 6 in Weight 172 lb BMI 27.8 BP 120/90 H Blood Pressure Location Lt brachial Position Sitting Pulse 113 H Pulse Source Pulse Oximeter Temp 97.7 F Temp Source Temporal Artery Scan Pulse Oximetry (%) 95 Oxygen Delivery Method Room Air Intake Visit Reasons: EP abdominal/back pain Intake Note: pt is here today for abd back pain started 3 days ago Patient Tobacco Use Status: Former Tobacco user Allergies codeine [CODEINE] Allergy (Unknown, Verified 09/01/23 11:50) TACHYCARDIA codeine Adverse Reaction (Unknown, Uncoded 09/01/23 11:50) anaphylaxis Do you need a note to return to daycare/school/sports/work: Yes HPI HPI Comments History of Present Illness Details 62-year-old male presents today complaining of ongoing lower abdominal pain. He had blood work and an ultrasound a week ago in his here today requesting the results. He states the pain isn't any different than what he has been experiencing. [facility] Medical History Erectile dysfunction Vitamin D deficiency Multinodular thyroid Other and unspecified hyperlipidemia Type 2 diabetes mellitus with unspecified complications Essential hypertension Aortic valve calcification Surgical History History of esophagogastroduodenoscopy (EGD) H/O colonoscopy Family History Father Stroke Brother Stroke Mother Diabetes Social History Household Members: Spouse Housing: House Alcohol intake: never Patient Tobacco Use Status: Former Tobacco user service: No Current occupational status: disabled Cognitive needs: No Hearing needs: No Vision needs: Yes Review of Systems Const All systems reviewed & are unremarkable except as noted in HPI and below Physical Exam Vital Signs: Last Vital Signs Temp 97.7 F 09/01/23 11:48 Pulse 113 H 09/01/23 11:48 BP 120/90 H 09/01/23 11:48 Pulse Ox 95 09/01/23 11:48 Oxygen Delivery Method Room Air 09/01/23 11:48 BMI result Body Mass Index 27.8 Const General: healthy appearing, comfortable and no acute distress HEENT Head: Yes normal to inspection, Yes normocephalic and Yes atraumatic Ears: hearing grossly normal bilaterally, external ears normal, TM's normal bilaterally and EAC's normal General nose exam: Normal external nose present Face and sinus: Yes normal facial exam Resp Effort & Inspection: normal respiratory effort Auscultation: clear to auscultation bilaterally Cardio Rate: regular rate Rhythm: regular rhythm GI Inspection: Yes normal to inspection Auscultation: normal bowel sounds Assessment & Plan Assessment & Plan (1) Abdominal pain: Code(s): R10.9 - Unspecified abdominal pain Plan The patient will await response from his PCP when the results of the ultrasound come in. I did review his lab work that was unremarkable which I told him. Follow up with PCP Coding Level of Care Code Est Pt Level 3 (81273) Diagnoses Abdominal pain R10.9
== END 2023-09-01 12:45 | disposition home or self-care (01) ==
PROVIDERS: PCP Nurse Practitioner Family; Visit Provider Physician Assistant Medical
DX: R10.9 Unspecified abdominal pain (principal)
CPT/HCPCS: 99213

== ENCOUNTER 2023-11-15 09:45 | Outpatient (AMB) | payer MEDICARE, MEDICAID, SELFPAY ==
--- NOTE | 2023-11-15 10:00 | A.OFFVIS_ITS ---
Vital Signs 11/15/23 10:02 Height 5 ft 6 in Weight 176 lb 5.917 oz BMI 28.5 BP 143/85 H Blood Pressure Location Lt brachial Position Sitting Pulse 79 Intake Visit Reasons: Discuss Anderson Intake Note: Kate presents in the office to discuss having colo. CC: He is due for a colonoscopy - He states that he sometimes has a small pain in the stomach but he is aware he has a hernia. He thought he was having a colonoscopy today and he states his blood sugar went to 29 today because he is fasting and drank a prep. Stock Crane Operator Required: Yes Stock Crane Operator Name: [id number] Maria D Allergies codeine [CODEINE] Allergy (Unknown, Verified 11/15/23 10:04) TACHYCARDIA codeine Adverse Reaction (Unknown, Uncoded 11/15/23 10:04) anaphylaxis HPI Comments Details: This is a 61y.o M with PMH of HTN, HLD, GERD who is here after ER visit x 2 for abdominal pain. History was obtained from the pt with the help of a process chemist. Main complaint is burning abd pain after he eats that started almost 2 weeks ago. No N/V/D. No fevers or chills. No changes in appetite or bowel habits. Takes ibuprofen for this. Does not smoke or etOH. Work up in ER included a CT abd/pelvis that showed some non-specific wall thickening in the small bowel. Labs grossly normal. Was given Omeprazole 40 and sucrafate 1g TID which have helped the sx. Of note, pt has hx of SSL in 2017 (Dr Marie, [facility]). Repeat recommended in 5y, however pt was in [place] when he got the call to schedule the procedure and then did not call back to reschedule. 11/15/23: Procedure had to be canceled last year as pt got admitted for stroke. Now doing well. Here to rebook this procedure. Otherwise, no complaints. No abd pain, N,V,D. Previously had requested suprep but now requests a different prep. [facility] Medical History Erectile dysfunction Vitamin D deficiency Multinodular thyroid Other and unspecified hyperlipidemia Type 2 diabetes mellitus with unspecified complications Essential hypertension Aortic valve calcification Surgical History History of esophagogastroduodenoscopy (EGD) H/O colonoscopy Family History Father Stroke Brother Stroke Mother Diabetes Social History Household Members: Spouse Housing: House Alcohol intake: never Patient Tobacco Use Status: Former Tobacco user service: No Current occupational status: disabled Cognitive needs: No Hearing needs: No Vision needs: Yes Review of Systems Const All systems reviewed & are unremarkable except as noted in HPI and below Physical Exam Vital Signs: Last Vital Signs Pulse 79 11/15/23 10:02 BP 143/85 H 11/15/23 10:02 BMI result Body Mass Index 28.5 Gen appear: NAD HEENT: nonicteric, no cervical lymphadenopathy Chest: CTA CVS: Regular S1/S2 Abd: soft, nontender, nondistended, bowel sounds + Ext: no peripheral edema Neuro: A/Ox3, noted to move all extremities spontaneously Psych: interacting appropriately Assessment & Plan Assessment & Plan (1) Personal history of colonic polyps: Code(s): Z86.010 - Personal history of colonic polyps Category: Medical Plan Pt aware that will book colo on elective basis. Est with cardiology for mild . Echo 2022 reviewed. PEG prep sent and instructions reviewed. He was also advised to HOLD trulicity 1 week prior. Confirmed pt not on jardiance (insurance never approved). Follow up after colo as needed. Medications: New peg 3350-electrolytes 236-22.74-6.74 -5.86 gram (Golytely) as per split prep instructions, until fecal effluent is clear 240 mL PO Q10M 4,000 mL 0RF colonoscopy Discontinued empagliflozin (Jardiance) Discontinued Reason: Insurance Denied 25 mg PO DAILY 90 tabs 4RF Coding Level of Care Code Est Pt Level 4 (34672) Diagnoses Personal history of colonic polyps Z86.010
[2023-11-15 10:02] VITALS: BP 143/85; PULSE 79; BMI 28.5
== END 2023-11-15 13:11 | disposition home or self-care (01) ==
PROVIDERS: PCP Nurse Practitioner Family; Visit Provider Internal Medicine
DX: Z01.818 Encounter for other preprocedural examination (principal); Z12.11 Encounter for screening for malignant neoplasm of colon; Z86.010 Personal history of colon polyps
CPT/HCPCS: 99024

== ENCOUNTER → 2023-11-15 09:45 | Outpatient (BNVA) | payer MEDICARE, MEDICAID, SELFPAY | PROVIDERS: PCP Nurse Practitioner Family; Visit Provider Internal Medicine | DX: Z86.010 Personal history of colon polyps (principal) | CPT/HCPCS: 99212 ==

== ENCOUNTER 2023-12-14 08:19 | Outpatient (AMB) | payer MEDICARE, MEDICAID, SELFPAY ==
[2023-12-14 08:37] VITALS: BP 132/90; PULSE 84; O2SAT 97; BMI 29.3
--- NOTE | 2023-12-14 08:37 | MHC.PC.OV ---
Vital Signs 12/14/23 08:37 Height 5 ft 6 in Weight 181 lb 4 oz BMI 29.3 BP 132/90 H Blood Pressure Location Rt brachial Position Sitting Pulse 84 Pulse Source Pulse Oximeter Pulse Oximetry (%) 97 Intake Visit Reasons: 4 wed f/u Intake Note: pt is here for 4 month follow up Sack Cleaning Hand Required: No Accompanied by: Self / Same As Patient Allergies codeine [CODEINE] Allergy (Unknown, Verified 12/14/23 10:01) TACHYCARDIA codeine Adverse Reaction (Unknown, Uncoded 12/14/23 10:01) anaphylaxis Medication List - Last Reconciled 12/14/23 by Enmanuel Crowder, UNDERWRITING CLERK- albuterol sulfate 90 mcg/actuation (Ventolin HFA) 2 puffs inhalation Q4-6H PRN aspirin PO atorvastatin 80 mg PO DAILY blood sugar diagnostic As directed cholecalciferol (vitamin D3) 50 mcg PO DAILY cholecalciferol (vitamin D3) 50 mcg PO DAILY 30 days clonazepam 1 mg PO BEDTIME PRN diphenhydramine HCl (Benadryl) 25 mg PO TID PRN 7 days dulaglutide 1.5 mg (0.5 mL) subcut QWEEK epinephrine 0.3 mg (0.3 mL) IM Q4H PRN famotidine (Pepcid) 20 mg PO BID 5 days fluoxetine 40 mg PO DAILY fluticasone propionate 50 mcg/actuation 1 spray intranasal DAILY gabapentin 600 mg PO BEDTIME hydroxyzine HCl 10 mg PO BEDTIME PRN ibuprofen 600 mg PO Q6H PRN lancets (FreeStyle Lancets) As directed lisinopril 20 mg PO DAILY 90 days metformin 500 mg PO BID omeprazole 40 mg PO DAILY tadalafil 5 mg PO DAILY 90 days tamsulosin 0.4 mg PO BEDTIME 90 days Tobacco use date assessed: 04/21/23 Dental Screening Dental Screen Date: 04/21/23 HPI 4 mon f/u HPI Details Pt is a diabetic, on an TL and a statin. A1C in office today is 7.6. Microalbumin is up to date. Denies polyuria, polydipsia, and neuropathy. Pt denies any signs and symptoms of hypoglycemia and does know how to correct it. Will increase trulicity from 0.75mg to 1.5mg. eye exam is scheduled (according to pt). Pt reports a cough. He reports that this has been present since he returned from vacation 2 weeks ago. Will swab for COVID/flu/RSV. Denies fever and chills. Pt's blood pressure is elevated today. Will increase lisinopril from 10mg to 20mg. Denies chest pain, shortness of breath, headache, dizziness, and blurred vision. [facility] Medical History Erectile dysfunction Vitamin D deficiency Multinodular thyroid Other and unspecified hyperlipidemia Type 2 diabetes mellitus with unspecified complications Essential hypertension Aortic valve calcification Surgical History History of esophagogastroduodenoscopy (EGD) H/O colonoscopy Family History Father Stroke Brother Stroke Mother Diabetes Social History Household Members: Spouse Housing: House Alcohol intake: never Patient Tobacco Use Status: Former Tobacco user service: No Current occupational status: disabled Cognitive needs: No Hearing needs: No Vision needs: Yes Questionnaire PHQ-9 Over the last 2 weeks, how often have you been bothered by any of the following problems? 1. Little interest or pleasure in doing things: not at all 2. Feeling down, depressed, or hopeless: not at all 3. Trouble falling or staying asleep, or sleeping too much: not at all 4. Feeling tired or having little energy: not at all 5. Poor appetite or overeating: not at all 6. Feeling bad about yourself - or that you are a failure or have let yourself or your family down: not at all 7. Trouble concentrating on things, such as reading the newspaper or watching television: not at all 8. Moving or speaking so slowly that other people could have noticed. Or the opposite - being so fidgety or restless that you have been moving around a lot more than usual: not at all 9. Thoughts that you would be better off or of hurting yourself in some way: not at all Total score: 0 Depression Screening Interpretation: Negative Depression Screening Done: Yes 27452 - PHQ-9 Billing: Yes Source: Developed by Drs. Isidoro England, Arnol Rangel and colleagues, with an educational timur from [employer]. Thrive Questionnaire Date Thrive assessed: 04/21/23 AUDIT C Alcohol Use Questionnaire (AUDIT-C) 1. How often do you have a drink containing alcohol?: Never 3. How often do you have six or more drinks on one occasion?: Never Total Score: 0 Score Reviewed/Action Taken: Yes LOBO-7 AMB Questionnaire LOBO-7 Date LOBO - 7 assessed: 04/21/23 Source: Developed by Kylie Noble Kurt Kroenke and colleagues, with an educational timur from [employer]. Review of Systems Const Reports as per HPI Physical exam (Primary Care) Vital Signs: Last Vital Signs Pulse 84 12/14/23 08:37 BP 132/90 H 12/14/23 08:37 Pulse Ox 97 12/14/23 08:37 BMI result Body Mass Index 29.3 Tobacco/Smoking Status: Tobacco use Status Tobacco use date assessed 04/21/23 12/14/23 08:38 Patient Tobacco Use Status Former Tobacco user 12/14/23 08:38 PHQ-9: PHQ-9 Score PHQ-9: Total score 0 12/14/23 09:22 Depression Screening Interpretation: Negative Thrive Assessment: Date of Thrive Assessment Date Thrive assessed 04/21/23 12/14/23 08:38 Const General: cooperative Orientation/consciousness: patient oriented x3 Resp Effort & Inspection: normal respiratory effort Auscultation: clear to auscultation bilaterally Cardio Rate: regular rate Rhythm: regular rhythm Heart sounds: S1 normal heart sound present, S2 normal heart sound present and Murmur heart sound present (aortic region) systolic (aortic region) Neuro General: patient oriented x3 Extrem Other: bilat feet: + sensation with use of monofilament, feet intact Psych Appearance: grossly normal Mental Status: mental status grossly normal Speech and movement: Normal speech and movement present Affect: normal affect Attitude: cooperative Thought process: Normal thought process present Thought content: Normal thought content present Insight: Good insight present (Psych) Judgement: Good judgement present (Psych) Assessment and Plan Assessment & Plan (1) Type 2 diabetes mellitus with unspecified complications: Code(s): E11.8 - Type 2 diabetes mellitus with unspecified complications Plan: Increasing trulicity from 0.75mg to 1.5mg (2) Respiratory infection: Code(s): J98.8 - Other specified respiratory disorders Plan: swab performed Plan The patient agreed to the use of a medical health researcher for this encounter. Scribed for Enmanuel Crowder [facility]- by Lore Emery medical health researcher, on 12/14/2023 at 09:20 EST. Orders: Orders SARS-CoV2/FLU/RSV Today J98.8 - Other specified respiratory disorders Comprehensive [place]. Panel Fast Today E11.8 - Type 2 diabetes mellitus with unspecified complications UA CC w/rflx Micro + Cult Today E11.8 - Type 2 diabetes mellitus with unspecified complications Complete Blood Count Auto Diff Today E11.8 - Type 2 diabetes mellitus with unspecified complications TSH reflex Free T4 Today E11.8 - Type 2 diabetes mellitus with unspecified complications Lipid Panel Today E11.8 - Type 2 diabetes mellitus with unspecified complications Medications: Changed From dulaglutide (Trulicity) 0.75 mg (0.5 mL) subcut QWEEK 6 mL 1RF To dulaglutide 1.5 mg (0.5 mL) subcut QWEEK 2 mL 1RF From lisinopril 10 mg PO DAILY To lisinopril 20 mg PO DAILY 90 tabs 0RF 90 days Refilled tadalafil Take daily for bladder and erections 5 mg PO DAILY 90 tabs 1RF sexual activity 90 days E11.69 - Type 2 diabetes mellitus with other specified complication, N52.1 - Erectile dysfunction due to diseases classified elsewhere tamsulosin 0.4 mg PO BEDTIME 90 caps 3RF 90 days omeprazole 40 mg PO DAILY 30 caps 0RF Coding Level of Care Code Est Pt Level 3 (37439) Diagnoses Type 2 diabetes mellitus with unspecified complications E11.8 Respiratory infection J98.8
== END 2023-12-14 10:42 | disposition home or self-care (01) ==
PROVIDERS: PCP Nurse Practitioner Family; Visit Provider Nurse Practitioner Family
DX: E11.8 Type 2 diabetes mellitus with unspecified complications (principal); J98.8 Other specified respiratory disorders

== ENCOUNTER 2023-12-14 08:19 | Outpatient (REF) | payer MEDICARE, MEDICAID, SELFPAY ==
[2023-12-14 11:24] LABS: Influenza A PCR NEGATIVE (Negative); Influenza B PCR NEGATIVE (Negative); Resp Syncy Virus RNA Qual PCR NEGATIVE (Negative); SARS COV2 PCR INHOUSE NEGATIVE (Negative)
== END 2023-12-14 08:20 | disposition home or self-care (01) ==
LOC: HO.LAB 08:19
PROVIDERS: PCP Nurse Practitioner Family; Visit Provider Nurse Practitioner Family
DX: J98.8 Other specified respiratory disorders (principal); E11.69 Type 2 diabetes mellitus with other specified complication; N52.1 Erectile dysfunction due to diseases classified elsewhere; R05.9 Cough, unspecified; B34.9 Viral infection, unspecified; Z79.899 Other long term (current) drug therapy
CPT/HCPCS: 0241U; 99212

== ENCOUNTER 2024-01-17 12:38 | Outpatient (AMB) | payer MEDICARE, MEDICAID, SELFPAY ==
--- NOTE | 2024-01-17 12:46 | A.OFFPC_ITS ---
Vital Signs 01/17/24 12:53 Height 5 ft 6 in Weight 167 lb BMI 27.0 BP 124/82 Blood Pressure Location Lt brachial Position Sitting Pulse 69 Pulse Source Pulse Oximeter Pulse Oximetry (%) 96 Oxygen Delivery Method Room Air Intake Visit Reasons: ED f/up Intake Note: Pt is here today for ER follow up visit. Allergies codeine [CODEINE] Allergy (Unknown, Verified 01/17/24 13:10) TACHYCARDIA Codeine Phosphate Adverse Reaction (Severe, Uncoded 01/17/24 13:10) Unknown glp-1 agonist Adverse Reaction (Severe, Uncoded 01/17/24 13:10) Unknown codeine Adverse Reaction (Unknown, Uncoded 01/17/24 13:10) anaphylaxis Medication List - Last Reconciled 01/17/24 by DONTA Martinez albuterol sulfate 90 mcg/actuation (Ventolin HFA) 2 puffs inhalation Q4-6H PRN aspirin PO atorvastatin 80 mg PO DAILY blood sugar diagnostic As directed cholecalciferol (vitamin D3) 50 mcg PO DAILY 30 days clonazepam 1 mg PO BEDTIME PRN diphenhydramine HCl (Benadryl) 25 mg PO TID PRN 7 days epinephrine 0.3 mg (0.3 mL) IM Q4H PRN famotidine (Pepcid) 20 mg PO BID 5 days fluoxetine 40 mg PO DAILY fluticasone propionate 50 mcg/actuation 1 spray intranasal DAILY gabapentin 600 mg PO BEDTIME hydroxyzine HCl 10 mg PO BEDTIME PRN ibuprofen 600 mg PO Q6H PRN lancets (FreeStyle Lancets) As directed metformin 500 mg PO BID omeprazole 40 mg PO DAILY tadalafil 5 mg PO DAILY 90 days tamsulosin 0.4 mg PO BEDTIME 90 days Tobacco use date assessed: 01/17/24 Dental Screening Dental Screen Date: 01/17/24 Did you have a dental visit in the last 12 months?: Yes Did you have a dental problem in the last 6 months where you did not have access to dental care?: No Was dental information given to patient?: Patient has dentist HPI ED f/up HPI Details Pt was seen in the ER on 01/05 c/o abdominal pain and N/V. Lipase was significantly elevated. CT showed evidence of pancreatitis without necrosis or abscess. Pt was kept NPO and treated with IV fluid resuscitation and prn pain medications. Pancreatitis was possibly due to GLP-1 agonist. Pt also had transaminitis with unclear etiology. LFTs were within normal range, though AST/ALT were rising mildly on d/c. Pt continued to recover well. He was d/c with oxycodone. Pt reports doing well today. He does report some abdominal discomfort but he is able to tolerate a diet. Denies fever, chills, and N/V/D. Will order labs. Pt's lisinopril was stopped in the hospital. Will start losartan 25mg. Pt was also taken off trulicity due to pancreatitis. Will start lantus 5 units. Informed pt that he can increase this to 10 units if his morning blood sugars are elevated. [facility] Medical History Erectile dysfunction Vitamin D deficiency Multinodular thyroid Other and unspecified hyperlipidemia Type 2 diabetes mellitus with unspecified complications Essential hypertension Aortic valve calcification Surgical History History of esophagogastroduodenoscopy (EGD) H/O colonoscopy Family History Father Stroke Brother Stroke Mother Diabetes Social History Household Members: Spouse Housing: House Alcohol intake: never Patient Tobacco Use Status: Former Tobacco user e-Cigarette/Vaping Use: Never Used service: No Current occupational status: disabled Cognitive needs: No Hearing needs: No Vision needs: Yes Questionnaire Thrive Questionnaire Date Thrive assessed: 04/21/23 AUDIT C Alcohol Use Questionnaire (AUDIT-C) 1. How often do you have a drink containing alcohol?: Never 3. How often do you have six or more drinks on one occasion?: Never Total Score: 0 LOBO-7 AMB Questionnaire LOBO-7 Date LOBO - 7 assessed: 04/21/23 Source: Developed by Drs. Isidoro England, Kylie Fabian, Arnol Muñiz and colleagues, with an educational timur from [employer]. Review of Systems Const Reports as per HPI Physical exam (Primary Care) Vital Signs: Last Vital Signs Pulse 69 01/17/24 12:53 BP 124/82 01/17/24 12:53 Pulse Ox 96 01/17/24 12:53 Oxygen Delivery Method Room Air 01/17/24 12:53 BMI result Body Mass Index 27.0 Tobacco/Smoking Status: Tobacco use Status Tobacco use date assessed 01/17/24 01/17/24 12:58 Patient Tobacco Use Status Former Tobacco user 01/17/24 12:46 e-Cigarette/Vaping Use Never Used 01/17/24 12:58 Thrive Assessment: Date of Thrive Assessment Date Thrive assessed 04/21/23 01/17/24 12:46 Const General: cooperative Orientation/consciousness: patient oriented x3 Resp Effort & Inspection: normal respiratory effort Auscultation: clear to auscultation bilaterally Cardio Rate: regular rate Rhythm: regular rhythm Heart sounds: S1 normal heart sound present, S2 normal heart sound present and Murmur heart sound present systolic GI Other: LUQ/epigastric discomfort with palpation, diastasis rectus noted Neuro General: patient oriented x3 Psych Appearance: grossly normal Mental Status: mental status grossly normal Speech and movement: Normal speech and movement present Affect: normal affect Attitude: cooperative Thought process: Normal thought process present Thought content: Normal thought content present Insight: Good insight present (Psych) Judgement: Good judgement present (Psych) Coding Level of Care Code Est Pt Level 3 (80658) Diagnoses Pancreatitis K85.90 Type 2 diabetes mellitus with unspecified complications E11.8 Assessment & Plan Assessment & Plan (1) Pancreatitis: Code(s): K85.90 - Acute pancreatitis without necrosis or infection, unspecified Category: Medical Plan: Labs ordered (2) Type 2 diabetes mellitus with unspecified complications: Code(s): E11.8 - Type 2 diabetes mellitus with unspecified complications Category: Medical Plan: starting lantus 5units at night Plan The patient agreed to the use of a manager medical writing for this encounter. Scribed for DONTA Carter by Lore Emery manager medical writing, on 01/17/2024 at 13:15 EST. Orders: Orders Complete Blood Count Auto Diff Today K85.90 - Acute pancreatitis without necrosis or infection, unspecified UA CC w/rflx Micro + Cult Today K85.90 - Acute pancreatitis without necrosis or infection, unspecified Comprehensive Met. Panel Today K85.90 - Acute pancreatitis without necrosis or infection, unspecified Hemoglobin A1c Today E11.8 - Type 2 diabetes mellitus with unspecified complications Comprehensive [place]. Panel Fast Today K85.90 - Acute pancreatitis without necrosis or infection, unspecified TSH reflex Free T4 Today K85.90 - Acute pancreatitis without necrosis or infection, unspecified Lipase Today K85.90 - Acute pancreatitis without necrosis or infection, unspecified Medications: New insulin glargine (Lantus Solostar U-100 Insulin) 5 units (0.05 mL) subcut QPM 30 days 1.5 mL 0RF insulin glargine (Lantus Solostar U-100 Insulin) 5 units (0.05 mL) subcut QPM 1.5 mL 0RF 30 days losartan 25 mg PO DAILY 30 tabs 2RF 30 days
[2024-01-17 12:53] VITALS: BP 124/82; PULSE 69; O2SAT 96; BMI 27.0
== END 2024-01-17 13:48 | disposition home or self-care (01) ==
PROVIDERS: PCP Nurse Practitioner Family; Visit Provider Nurse Practitioner Family
DX: K85.90 Acute pancreatitis without necrosis or infection, unspecified (principal); E11.8 Type 2 diabetes mellitus with unspecified complications

== ENCOUNTER → 2024-01-17 12:38 | Outpatient (BNVA) | payer MEDICARE, MEDICAID, SELFPAY | PROVIDERS: PCP Nurse Practitioner Family; Visit Provider Nurse Practitioner Family ==

== ENCOUNTER 2024-01-17 13:25 | Outpatient (REF) | payer MEDICARE, MEDICAID, SELFPAY ==
[2024-01-17 16:06] LABS: Appearance Urine Clear; Color Urine Yellow; Glucose Urine UA >=1000 mg/dL (Negative); Leukocyte Esterase Urine Negative (Negative); Nitrite Urine Negative (Negative); PH 5.5 (5.0-9.0); Specific Gravity - Urine >= 1.030 (1.005-1.025); UMIC TRIGGER UACC YES; Urine Blood Negative (Negative); Urine Ketones Negative (Negative); Urine Protein 30 (1+) mg/dL (Neg-Trace)
[2024-01-17 16:09] LABS: Bacteria Urine None Seen (None Seen); Hyaline Casts Urine 0-2 /LPF (0-2); RBC Urine 0-2 /HPF (0-2); Squamous Epithelial Cell Urine 0-2 /HPF (0-2); WBC Urine 0-5 /HPF (0-5)
[2024-01-17 16:38] LABS: MANUAL DIFF FLAG NO
[2024-01-17 16:48] LABS: Basophils Percent Auto 0.3 % (0-2); Eosinophils Absolute Auto 0.1 X10*3/uL (0.0-0.4); Eosinophils Percent Auto 1.6 % (0-4); Hematocrit 39.4 % (42.0-52.0); Hemoglobin 13.4 g/dl (14.0-18.0); Imm Gran Abs Auto 0.03 X10*3/uL (0.00-0.03); Imm Gran Pct Auto 0.5 % (0.0-0.4); Lymphocytes Percent Auto 16.3 % (20-40); Mean Corpuscular Hemoglobin 28.3 pg (27.0-33.0); Mean Corpuscular Volume 83.1 fL (80.0-98.0); Mean Platelet Volume 9.4 fL (9.4-12.4); Monocytes Absolute Auto 0.4 X10*3/uL (0.1-1.2); Monocytes Percent Auto 6.6 % (2-11); Neutrophils Absolute Auto 4.7 x10*3/uL (2.0-8.3); Neutrophils Percent Auto 74.7 % (45-73); Platelet Count 466 X10*3/uL (160-400); Red Blood Count 4.74 X10*6/uL (4.60-5.80); Red Cell Distribution Width 12.1 % (11.0-16.0); White Blood Count 6.3 X10*3/uL (4.8-10.8)
[2024-01-17 17:08] LABS: Alanine Aminotransferase 85 U/L (0-40); Albumin Level 3.7 g/dL (3.5-5.0); Alkaline Phosphatase 135 U/L (39-117); Anion Gap 12 (12-20); Aspartate Amino Transferase 37 U/L (5-37); Bilirubin Total 0.4 mg/dL (0.0-1.0); Blood Urea Nitrogen 12 mg/dL (9-16); Calcium 9.2 mg/dL (8.4-10.2); Carbon Dioxide 29 mmol/L (22-29); Chloride 100 mmol/L (96-108); Estimated Glomerular Filt Rate > 60; Glucose Fasting 288 mg/dL (60-99); Glucose Random 286 mg/dL (60-115); Lipase 87 U/L (8-78); Potassium 4.4 mmol/L (3.3-5.1); Sodium 137 mmol/L (135-145); Total Protein 7.2 g/dL (6.5-8.0)
[2024-01-17 17:18] LABS: TSH reflex Free T4 1.24 uIU/mL (0.32-4.0)
== END 2024-01-17 13:26 | disposition home or self-care (01) ==
LOC: HO.HMGCLDS 13:25
PROVIDERS: PCP Nurse Practitioner Family; Visit Provider Nurse Practitioner Family
DX: K85.90 Acute pancreatitis without necrosis or infection, unspecified (principal)
CPT/HCPCS: 36415; 80053; 81001; 83690; 84443; 85025; 99212

== ENCOUNTER 2024-01-21 | Outpatient (REF) | payer MEDICARE, MEDICAID, SELFPAY | END 2024-01-21 00:01 | disposition home or self-care (01) | LOC: CF | PROVIDERS: PCP Nurse Practitioner Family; Visit Provider Nurse Practitioner Family | DX: E11.65 Type 2 diabetes mellitus with hyperglycemia (principal) | CPT/HCPCS: 82948; 99212 ==

== ENCOUNTER 2024-01-21 11:07 | Outpatient (AMB) | payer MEDICARE, MEDICAID, SELFPAY ==
[2024-01-21 11:39] VITALS: BP 120/80; PULSE 82; O2SAT 98; BMI 26.5
--- NOTE | 2024-01-21 11:39 | AM.OFFWIN_ITS ---
Intake Vital Signs 01/21/24 11:39 Height 5 ft 6 in Weight 164 lb BMI 26.5 BP 120/80 Blood Pressure Location Rt brachial Position Sitting Pulse 82 Pulse Source Pulse Oximeter Pulse Oximetry (%) 98 Oxygen Delivery Method Room Air Intake Visit Reasons: EP-high blood sugar Intake Note: Patient here for elevated Blood sugar Patient Tobacco Use Status: Former Tobacco user Allergies codeine [CODEINE] Allergy (Unknown, Verified 01/21/24 11:44) TACHYCARDIA Codeine Phosphate Adverse Reaction (Severe, Uncoded 01/21/24 11:44) Unknown glp-1 agonist Adverse Reaction (Severe, Uncoded 01/21/24 11:44) Unknown codeine Adverse Reaction (Unknown, Uncoded 01/21/24 11:44) anaphylaxis Do you need a note to return to daycare/school/sports/work: No HPI HPI Comments History of Present Illness Details This is a 63-year-old male with past medical history significant for essential hypertension, hyperlipidemia, and type 2 diabetes mellitus who presented to the walk-in clinic complaining of hyperglycemia. Patient was recently admitted to a hospital in the setting of acute pancreatitis and his Trulicity was discontinued as they thought his Trulicity might have caused his acute pancreatitis. He recently followed up with his primary care physician on 01/17/2024 and he was started on insulin glargine 5 units every evening. His primary care physician recommended increasing the insulin to 10 units if his blood sugars were elevated. Patient states his blood sugars have still been elevated at 385 > 351 > 335 > 297 this morning. Patient administered 10 units of gargline this morning. Patient denies any symptoms of hyperglycemia including polyuria, polydipsia, blurry vision, abdominal pain, or nausea/vomiting. ON LICENSE OF [facility] Medical History Erectile dysfunction Vitamin D deficiency Multinodular thyroid Other and unspecified hyperlipidemia Type 2 diabetes mellitus with unspecified complications Essential hypertension Aortic valve calcification Surgical History History of esophagogastroduodenoscopy (EGD) H/O colonoscopy Family History Father Stroke Brother Stroke Mother Diabetes Social History Household Members: Spouse Housing: House Alcohol intake: never Patient Tobacco Use Status: Former Tobacco user e-Cigarette/Vaping Use: Never Used service: No Current occupational status: disabled Cognitive needs: No Hearing needs: No Vision needs: Yes Review of Systems Const All systems reviewed & are unremarkable except as noted in HPI and below Reports no additional complaints Eyes Reports no additional complaints ENT Reports no additional complaints Card Reports no additional complaints Resp Reports no additional complaints GI Reports no additional complaints Reports no additional complaints Musc Reports no additional complaints Skin/Breast Reports system reviewed and no additional complaints, except as documented Neuro Reports no additional complaints Psych Reports no additional complaints Endo Reports no additional complaints Saji/Lymph Reports no additional complaints Aller/Immun Reports no additional complaints Physical Exam Vital Signs: Last Vital Signs Pulse 82 01/21/24 11:39 BP 120/80 01/21/24 11:39 Pulse Ox 98 01/21/24 11:39 Oxygen Delivery Method Room Air 01/21/24 11:39 BMI result Body Mass Index 26.5 Const Other: Vital signs reviewed. Constitutional: Non-toxic appearing. No acute distress. Well-developed and w ell-nourished. HEENT: Normocephalic and atraumatic. Skin: Warm and dry. No rashes or lesions noted. Neck: Full and painless range of motion. No cervical lymphadenopathy. Cardio: Regular rate. No lower extremity edema. No JVD. Pulmonary: No respiratory distress. No accessory muscle usage. Gastrointestinal: Soft, nontender, and nondistended in all 4 quadrants. Musculoskeletal: Normal range of motion in joints throughout the body. No deformity or other signs of injury. Neuro: Alert and oriented x4. Cranial nerves 2-12 grossly intact. No focal deficits appreciated. Psych: Normal mood and affect. Results AMB Random Glucose (hemocue) AMB Random Glucose (hemocue) 343 mg/dL Last Edit by MIGUEL A Molina on 01/21/24 12:02 Assessment & Plan Assessment & Plan (1) Hyperglycemia due to diabetes mellitus: Code(s): E11.65 - Type 2 diabetes mellitus with hyperglycemia Plan: This is a 63-year-old male who presented to the walk-in clinic complaining of hyperglycemia following some medication changes in his diabetes regimen. Patient's Trulicity was discontinued due to an episode of acute pancreatitis and he was started on insulin glargine 5 units daily but his blood sugars have still been elevated. Patient states he took 10 units of insulin glargine this morning but his sugar was still elevated at 343 at the walk-in clinic. I advised the patient to start taking insulin glargine 14 units daily starting tomorrow morning. Patient is asymptomatic of hyperglycemia but he was educated on the signs/symptoms of hyperglycemia including polyuria, polydipsia, abdominal pain, nausea/vomiting, blurred vision and he was instructed to proceed directly to the emergency room if he were to develop any of these symptoms. Patient verbalized understanding and is agreeable with the plan. Orders: Orders AMB Random Glucose (hemocue) Today Z13.9 - Encounter for screening, unspecified Coding Level of Care Code Est Pt Level 3 (62960) Diagnoses Hyperglycemia due to diabetes mellitus E11.65
== END 2024-01-21 13:08 | disposition home or self-care (01) ==
PROVIDERS: PCP Nurse Practitioner Family; Visit Provider Physician Assistant Medical
DX: Z13.9 Encounter for screening, unspecified (principal); E11.65 Type 2 diabetes mellitus with hyperglycemia

== ENCOUNTER → 2024-01-21 11:07 | Outpatient (BNVA) | payer MEDICARE, MEDICAID, SELFPAY | PROVIDERS: PCP Nurse Practitioner Family ==

== ENCOUNTER 2024-01-24 09:03 | Outpatient (REF) | payer MEDICARE, MEDICAID, SELFPAY ==
[2024-01-24 10:00] LABS: MANUAL DIFF FLAG NO
[2024-01-24 10:06] LABS: Basophils Percent Auto 0.7 % (0-2); Eosinophils Absolute Auto 0.1 X10*3/uL (0.0-0.4); Eosinophils Percent Auto 3.1 % (0-4); Hematocrit 45.2 % (42.0-52.0); Hemoglobin 15.2 g/dl (14.0-18.0); Imm Gran Abs Auto 0.01 X10*3/uL (0.00-0.03); Imm Gran Pct Auto 0.2 % (0.0-0.4); Lymphocytes Absolute Auto 1.3 X10*3/uL (1.2-4.9); Lymphocytes Percent Auto 29.3 % (20-40); Mean Corpuscular HGB Conc 33.6 g/dl (31.0-36.0); Mean Corpuscular Hemoglobin 28.3 pg (27.0-33.0); Mean Platelet Volume 9.6 fL (9.4-12.4); Monocytes Absolute Auto 0.4 X10*3/uL (0.1-1.2); Monocytes Percent Auto 8.2 % (2-11); Neutrophils Absolute Auto 2.6 x10*3/uL (2.0-8.3); Neutrophils Percent Auto 58.5 % (45-73); Platelet Count 478 X10*3/uL (160-400); Red Blood Count 5.38 X10*6/uL (4.60-5.80); Red Cell Distribution Width 12.3 % (11.0-16.0); White Blood Count 4.5 X10*3/uL (4.8-10.8)
[2024-01-24 10:06] LABS: Appearance Urine Clear; Color Urine Yellow; Glucose Urine UA >=1000 mg/dL (Negative); Leukocyte Esterase Urine Negative (Negative); Nitrite Urine Negative (Negative); PH 5.5 (5.0-9.0); Specific Gravity - Urine >= 1.030 (1.005-1.025); UMIC TRIGGER UACC YES; Urine Blood Negative (Negative); Urine Ketones Negative (Negative); Urine Protein Trace mg/dL (Neg-Trace)
[2024-01-24 10:11] LABS: Bacteria Urine None Seen (None Seen); Hyaline Casts Urine 0-2 /LPF (0-2); RBC Urine 0-2 /HPF (0-2); Squamous Epithelial Cell Urine 0-2 /HPF (0-2); WBC Urine 0-5 /HPF (0-5)
[2024-01-24 10:30] LABS: Estimated Average Glucose 189 mg/dL; Hemoglobin A1C 258.2715 umol/L; Hemoglobin A1c % 8.2 % (<6.0); Total Hemoglobin (HGBA1C) 3877.6579 umol/L
[2024-01-24 10:57] LABS: Alanine Aminotransferase 45 U/L (0-40); Albumin Level 4.1 g/dL (3.5-5.0); Alkaline Phosphatase 133 U/L (39-117); Anion Gap 9 (12-20); Aspartate Amino Transferase 23 U/L (5-37); Bilirubin Total 0.5 mg/dL (0.0-1.0); Blood Urea Nitrogen 19 mg/dL (9-16); Calcium 9.9 mg/dL (8.4-10.2); Carbon Dioxide 32 mmol/L (22-29); Chloride 98 mmol/L (96-108); Estimated Glomerular Filt Rate > 60; Lipase 66 U/L (8-78); Potassium 4.5 mmol/L (3.3-5.1); Sodium 134 mmol/L (135-145); Total Protein 7.8 g/dL (6.5-8.0)
[2024-01-24 11:13] LABS: TSH reflex Free T4 1.46 uIU/mL (0.32-4.0)
[2024-01-24 11:16] LABS: HBc Num1 0.16 S/CO (0.00-0.79); HBsAGNum1 0.45 S/CO (0.00-0.99); Hepatitis A Antibody IgM 0.57 Index (0-0.79); Hepatitis B Core Antibody Nonreactive (Nonreactive); Hepatitis B Surface Antigen Negative (Negative); ~HepC Num1 0.13 S/CO (0.00-0.79); ~Hepatitis A Antibody IgM Nonreactive (Nonreactive); ~Hepatitis B Surface Antibody NONREACTIVE (Nonreactive); ~Hepatitis C Antibody Nonreactive (Nonreactive)
[2024-01-24 11:33] LABS: Glucose Random 353 mg/dL (60-115)
== END 2024-01-24 09:04 | disposition home or self-care (01) ==
LOC: HO.HMGCLDS 09:03
PROVIDERS: PCP Nurse Practitioner Family; Visit Provider Nurse Practitioner Family
DX: K85.90 Acute pancreatitis without necrosis or infection, unspecified (principal); R74.8 Abnormal levels of other serum enzymes; I10 Essential (primary) hypertension; E78.5 Hyperlipidemia, unspecified; E11.65 Type 2 diabetes mellitus with hyperglycemia; Z79.4 Long term (current) use of insulin
CPT/HCPCS: 36415; 80053; 81001; 81003; 82948; 83036; 83690; 84443; 85025; 86704; 86706; 86709; 86803; 87340; 99212

== ENCOUNTER 2024-01-24 09:29 | Outpatient (AMB) | payer MEDICARE, MEDICAID, SELFPAY ==
--- NOTE | 2024-01-24 09:40 | AM.OFFWIN_ITS ---
Intake Vital Signs 01/24/24 09:47 Weight 164 lb BP 124/80 Blood Pressure Location Lt brachial Position Sitting Pulse 79 Pulse Source Pulse Oximeter Pulse Oximetry (%) 97 Oxygen Delivery Method Room Air Intake Visit Reasons: EP-high blood sugar Patient Tobacco Use Status: Former Tobacco user Allergies codeine [CODEINE] Allergy (Unknown, Verified 01/21/24 11:44) TACHYCARDIA Codeine Phosphate Adverse Reaction (Severe, Uncoded 01/21/24 11:44) Unknown glp-1 agonist Adverse Reaction (Severe, Uncoded 01/21/24 11:44) Unknown codeine Adverse Reaction (Unknown, Uncoded 01/21/24 11:44) anaphylaxis HPI HPI Comments History of Present Illness Details 63-year-old male with past medical histo ry significant for essential hypertension, hyperlipidemia, and type 2 diabetes mellitus who presented to the walk-in clinic complaining of hyperglycemia. Patient was recently admitted to a hospital in the setting of acute pancreatitis and his Trulicity was discontinued as they thought his Trulicity might have caused his acute pancreatitis. He recently followed up with his primary care physician on 01/17/2024 and he was started on insulin glargine 5 units every evening. His primary care physician recommended increasing the insulin to 10 units if his blood sugars were elevated. On 01/20, patient came into this clinic stating his blood sugars have still been elevated at 385 > 351 > 335 > 297. Patient has been using 10 units of Lantus each morning. He tells me his blood sugars are still elevated since that appointment; 01/20 422, 294 01/21 295, 290 01/22 317 01/23 319 Patient states he is also still taking his metformin 500 mg twice a day. Patient denies any symptoms of hyperglycemia including polyuria, polydipsia, blurry vision, abdominal pain, or nausea/vomiting. [facility] Medical History Erectile dysfunction Vitamin D deficiency Multinodular thyroid Other and unspecified hyperlipidemia Type 2 diabetes mellitus with unspecified complications Essential hypertension Aortic valve calcification Surgical History History of esophagogastroduodenoscopy (EGD) H/O colonoscopy Family History Father Stroke Brother Stroke Mother Diabetes Social History Household Members: Spouse Housing: House Alcohol intake: never Patient Tobacco Use Status: Former Tobacco user e-Cigarette/Vaping Use: Never Used service: No Current occupational status: disabled Cognitive needs: No Hearing needs: No Vision needs: Yes Review of Systems Const All systems reviewed & are unremarkable except as noted in HPI and below Physical Exam Vital Signs: Last Vital Signs Pulse 79 01/24/24 09:47 BP 124/80 01/24/24 09:47 Pulse Ox 97 01/24/24 09:47 Oxygen Delivery Method Room Air 01/24/24 09:47 Const General: cooperative, healthy appearing, comfortable, no acute distress and well developed Orientation/consciousness: patient oriented x3 Limitations: no limitations HEENT Head: Yes normal to inspection Ears: hearing grossly normal bilaterally General nose exam: Normal external nose present Face and sinus: Yes normal facial exam Eyes General: appearance normal, both eyes and all related structures Neck Neck: Yes normal visual inspection and Yes full ROM Resp Effort & Inspection: normal respiratory effort and able to speak in complete sentences Skin General skin exam: no rashes or lesions noted Neuro General: patient oriented x3 Extrem General: Yes normal to inspection Results AMB Random Glucose (hemocue) AMB Random Glucose (hemocue) 207 mg/dL Last Edit by MIGUEL A Molina on 01/24/24 10:16 Assessment & Plan Assessment & Plan (1) Type 2 diabetes mellitus with unspecified complications: Code(s): E11.8 - Type 2 diabetes mellitus with unspecified complications Plan: Point of care in the office today is 207 but patient states he has not eaten breakfast. As he is still having elevated blood sugars. Recommended he increase it to 13 units tomorrow morning and do that for 2 days, if it does not help, he should raise his Lantus to 15 units each morning. If that does not help, he may need Humalog with meals to replace the metformin. Patient does have follow-up on March 16 with his PCP, his PCP is on vacation right now. Recommended he follow up with us if his high blood sugars persist, however, we may have to give it to the physician customer acquisition manager to initiate Humalog. Asked our nurses to check in with him in a few days to see how the change is going. Plan See above Coding Level of Care Code Est Pt Level 4 (60889) Diagnoses Type 2 diabetes mellitus with unspecified complications E11.8
[2024-01-24 09:47] VITALS: BP 124/80; PULSE 79; O2SAT 97
== END 2024-01-24 10:22 | disposition home or self-care (01) ==
PROVIDERS: PCP Nurse Practitioner Family; Visit Provider Physician Assistant
DX: Z13.9 Encounter for screening, unspecified (principal); E11.8 Type 2 diabetes mellitus with unspecified complications

== ENCOUNTER 2024-01-28 08:35 | Outpatient (AMB) | payer MEDICARE, MEDICAID, SELFPAY ==
--- NOTE | 2024-01-28 09:00 | MHC.OFFWIV ---
Intake Vital Signs 01/28/24 09:11 Weight 164 lb 8 oz BP 120/90 H Blood Pressure Location Rt brachial Position Sitting Pulse 80 Pulse Source Pulse Oximeter Pulse Oximetry (%) 98 Oxygen Delivery Method Room Air Intake Visit Reasons: EP-high blood sugar Intake Note: Patient here for elevated blood sugar again. Patient Tobacco Use Status: Former Tobacco user Allergies codeine [CODEINE] Allergy (Unknown, Verified 01/28/24 09:09) TACHYCARDIA Codeine Phosphate Adverse Reaction (Severe, Uncoded 01/28/24 09:09) Unknown glp-1 agonist Adverse Reaction (Severe, Uncoded 01/28/24 09:09) Unknown codeine Adverse Reaction (Unknown, Uncoded 01/28/24 09:09) anaphylaxis Do you need a note to return to daycare/school/sports/work: No HPI HPI Comments History of Present Illness Details This is a 63-year- old male with past medical history s ignificant for ess ential hypertensio n, hyperlipidemia, and type 2 diabet es mellitus who pr esented to the [facility] clinic compla ining of persisten t hyperglycemia. Patient was recent ly admitted to a ospital in the set ting of acute panc reatitis and his T rulicity was disco ntinued as they th ought his Trulicit y might have cause d his acute pancre atitis. He recent ly followed up wit h his primary care physician on 12/28 and he was started on insulin glargine 5 units every evening. Il s primary care emilee ryder recommended increasing the in sulin to 10 units if his blood sugar s were elevated. P atient then presen tommy to the walkin clinic on 01/21/20 due to elevated blood sugars (385 > 351 > 335 > 297 ). Patient was in structed to increa se his insulin to 14 units daily. H e then returned to the walk-in clini c on 01/24/2024 du e to persistent hy perglycemia and radu boothe told the provide r he was taking 10 units of glargine but tells me toda y he has been taki ng 14 units. Patie nt continues to de ny any symptoms of hyperglycemia inc luding polyuria, p olydipsia, blurry vision, abdominal pain, or nausea/vo miting. [facility] Medical History Erectile dysfunction Vitamin D deficiency Multinodular thyroid Other and unspecified hyperlipidemia Type 2 diabetes mellitus with unspecified complications Essential hypertension Aortic valve calcification Surgical History History of esophagogastroduodenoscopy (EGD) H/O colonoscopy Family History Father Stroke Brother Stroke Mother Diabetes Social History Household Members: Spouse Housing: House Alcohol intake: never Patient Tobacco Use Status: Former Tobacco user e-Cigarette/Vaping Use: Never Used service: No Current occupational status: disabled Cognitive needs: No Hearing needs: No Vision needs: Yes Review of Systems Const All systems reviewed & are unremarkable except as noted in HPI and below Reports no additional complaints Eyes Reports no additional complaints ENT Reports no additional complaints Card Reports no additional complaints Resp Reports no additional complaints GI Reports no additional complaints Reports no additional complaints Musc Reports no additional complaints Skin/Breast Reports system reviewed and no additional complaints, except as documented Neuro Reports no additional complaints Psych Reports no additional complaints Endo Reports no additional complaints Saji/Lymph Reports no additional complaints Aller/Immun Reports no additional complaints Physical Exam Vital Signs: Last Vital Signs Pulse 80 01/28/24 09:11 BP 120/90 H 01/28/24 09:11 Pulse Ox 98 01/28/24 09:11 Oxygen Delivery Method Room Air 01/28/24 09:11 Const Other: Vital signs reviewed. Constitutional: Non-toxic appearing. No acute distress. Well-developed and well-nourished. HEENT: Normocephalic and atraumatic. Skin: Warm and dry. No rashes or lesions noted. Neck: Full and painless range of motion. No cervical lymphadenopathy. Cardio: Regular rate. No lower extremity edema. No JVD. Pulmonary: No respiratory distress. No accessory muscle usage. Gastrointestinal: Soft, non-tender, and non-distended in all 4 quadrants. Musculoskeletal: Normal range of motion in joints throughout the body. - No deformity or other signs of injury. Neuro: Alert and oriented x4. Cranial nerves 2-12 grossly intact. No focal deficits appreciated. Psych: Normal mood and affect. Results AMB Random Glucose (hemocue) AMB Random Glucose (hemocue) 242 mg/dL Last Edit by MIGUEL A Molina on 01/28/24 09:16 Results Reviewed Results Reviewed: Laboratory Last Values Random Glu (Clinic) 242 mg/dL 01/28/24 09:15 Assessment & Plan Assessment & Plan (1) Hyperglycemia due to type 2 diabetes mellitus: Code(s): E11.65 - Type 2 diabetes mellitus with hyperglycemia Qualifiers: Diabetes mellitus custodial insulin use: with custodial use Qualified Code(s): E11.65 - Type 2 diabetes mellitus with hyperglycemia; Z79.4 - senior living (current) use of insulin Plan: 63-year-old male with past medical history significant for essential hypertension, hyperlipidemia, and type 2 diabetes mellitus who presented to the walk-in clinic complaining of persistent hyperglycemia despite recent increases in insulin. Patient has been taking 14 units of insulin glargine daily but his blood sugars are still mildly elevated although improved from last week. Patient was given written information in Cypriot regarding a diabetic diet. He was also instructed to increase his insulin glargine to 16 units daily. Patient requested an Endocrinology referral; however, I explained to him that I am unable to some referral from the walk-in clinic. A message was sent to the patient's primary care physician regarding endocrinology referral. Patient was again educated on the signs and symptoms of hyperglycemia. He was advised to follow up with his primary care physician and endocrinology as soon as possible for further diabetes management. Orders: Orders AMB Random Glucose (hemocue) Today Z13.9 - Encounter for screening, unspecified Coding Level of Care Code Est Pt Level 3 (19663) Diagnoses Type 2 diabetes mellitus with hyperglycemia, with long-term current use of insulin E11.65; Z79.4 Diabetes mellitus custodial insulin use: with medical terminologist use
[2024-01-28 09:11] VITALS: BP 120/90; PULSE 80; O2SAT 98
== END 2024-01-28 10:40 | disposition home or self-care (01) ==
PROVIDERS: PCP Nurse Practitioner Family; Visit Provider Physician Assistant Medical
DX: E11.65 Type 2 diabetes mellitus with hyperglycemia (principal); Z79.4 Long term (current) use of insulin; Z13.9 Encounter for screening, unspecified

== ENCOUNTER → 2024-01-28 08:35 | Outpatient (BNVA) | payer MEDICARE, MEDICAID, SELFPAY | PROVIDERS: PCP Nurse Practitioner Family; Visit Provider Physician Assistant Medical | DX: E11.65 Type 2 diabetes mellitus with hyperglycemia (principal); Z79.4 Long term (current) use of insulin | CPT/HCPCS: 82948; 99212 ==

== ENCOUNTER 2024-02-01 14:25 | Emergency (ER) | payer MEDICARE, MEDICAID, SELFPAY ==
--- NOTE | ~2024-02-01 | CT_ITS ---
EXAMINATION: CT ABDOMEN AND PELVIS WITH CONTRAST CLINICAL INFORMATION: Right upper quadrant/left upper quadrant pain COMPARISON: Ultrasound abdomen 08/24/2023. TECHNIQUE: Multidetector volumetric images were obtained from the superior aspect of the liver through the pubic symphysis following administration 85 mL of Omnipaque 350 intravenous contrast. Sagittal and coronal reformatted images were obtained on the technologist's workstation. Oral contrast: No This CT examination was performed using dose optimization techniques as appropriate, variously including the following: *Automated exposure control *Adjustment of mA and/or kV according to patient size (this includes techniques or standardized protocols for targeted exams where dose is matched to indication/reason for exam; i.e. extremities or head) *Use of iterative reconstruction technique DLP: 1367 mGy-cm FINDINGS: LUNG BASES: The lung bases are clear. The heart size is normal. There is a small hiatal hernia. LIVER, GALLBLADDER, AND BILIARY TREE: The liver is normal in size, shape, and attenuation. No focal hepatic lesion or biliary ductal dilatation is present. The gallbladder is unremarkable with no evidence of radiopaque gallstones, gallbladder wall thickening, or obvious pericholecystic inflammatory changes. PANCREAS: Superior and posterior the pancreatic body is a large cystic mass measuring 6.3 x 6.4 6.5 cm partially engulfing proximal pancreatic body. The fluid within measures 14 Hounsfield units suggestive of simple cyst. Mild peripancreatic haziness is seen likely secondary to inflammatory process. The head, uncinate processes and the tail of the pancreas is normal. Mild pancreatic ductal dilatation seen in distal body of the pancreas SPLEEN: Unremarkable. ADRENAL GLANDS: Unremarkable. KIDNEYS AND URETERS: The kidneys are normal in size, shape, and attenuation. No hydronephrosis, hydroureter, or calculi seen. No perinephric stranding. BLADDER: Unremarkable. GASTROINTESTINAL TRACT: There is scattered stool, diverticuli and and gas seen in colon without distention. The small bowel loops are normal caliber. Appendix is normal caliber. Moderate stool is seen in the terminal ileum. Stomach is nondistended. No free air or free fluid seen. ABDOMINAL WALL: No significant hernia is appreciated. LYMPH NODES: Normal. VASCULAR: Unremarkable. PELVIC VISCERA: The prostate gland is mildly enlarged. No free fluid. OSSEOUS STRUCTURES: Mild degenerative disc changes and vacuum disc phenomena L5-S1 disc level. No aggressive lytic or sclerotic process seen. CT/CT abdomen pelvis w IV con IMPRESSION: Interval large cystic mass in the body of the pancreas partially engulfing the pancreas. Findings are suspicious for cystic pancreatic lesion. There is peripancreatic fluid soft tissue density likely reactive inflammatory process. Even though the lesion measures simple cyst a cystic neoplasm cannot exclude. Acute on chronic pancreatitis is considered less likely. No abnormal retroperitoneal lymph nodes seen. Recommend MRI abdomen for further correlation. Fleischner guidelines were followed. Electronically signed by: Oscar Correa MD 02/01/2024 09:31 PM SARAH WOODS
[2024-02-01 14:32] VITALS: BP 144/97; PULSE 89; RESP 18; TEMP 36.8; O2SAT 98; BMI 25.1
--- NOTE | 2024-02-01 14:36 | ED_ITS ---
HPI - General Adult General Chief complaint: Abdominal Pain Stated complaint: Abd pain Time Seen by Provider: 02/01/24 19:14 Source: patient Limitations: no limitations History of Present Illness ED Provider: Suki Ramirez PA-C HPI narrative: 63-year-old male with a history of diabetes, subsequent pancreatitis secondary to the use of Trulicity, GERD and hypertension, presents with upper abdominal discomfort x1 day. Pain over entire upper abdomen, nonradiating, unable to describe the nature of his symptoms. Associated nausea no vomiting. Denies fevers. Denies alcohol abuse history. Denies abdominal distention, inability to pass flatus. Related Data Home Medications ?Medication ?Instructions ?Recorded ?Confirmed fluoxetine 40 mg capsule 40 mg PO DAILY 03/28/20 01/17/24 hydroxyzine HCl 10 mg tablet 10 mg PO BEDTIME PRN Anxiety 03/28/20 01/17/24 blood sugar diagnostic #10 ea 05/06/20 01/17/24 clonazepam 1 mg tablet 1 mg PO BEDTIME PRN Anxiety 06/17/21 01/17/24 albuterol sulfate 90 mcg/actuation 2 puff inhalation Q4-6H PRN 08/11/22 01/17/24 aerosol inhaler (Ventolin HFA) wheezing fluticasone propionate 50 1 spray intranasal DAILY 01/18/23 01/17/24 mcg/actuation nasal spray,suspension gabapentin 600 mg tablet 600 mg PO BEDTIME 01/18/23 01/17/24 metformin 500 mg tablet 500 mg PO BID 01/18/23 01/17/24 lancets 28 gauge (FreeStyle #100 ea 03/04/23 01/17/24 Lancets) aspirin 81 mg chewable tablet PO 11/15/23 01/17/24 insulin glargine 100 unit/mL (3 14 unit subcut QPM 01/28/24 mL) subcutaneous pen (Lantus Solostar U-100 Insulin) Previous Rx's ?Medication ?Instructions ?Recorded cholecalciferol (vitamin D3) 50 50 mcg PO DAILY 30 days #30 caps 05/04/22 mcg (2,000 unit) capsule ibuprofen 600 mg tablet 600 mg PO Q6H PRN fever or pain 11/30/22 #30 tabs diphenhydramine HCl 25 mg capsule 25 mg PO TID PRN itching 7 days 10/30/23 (Benadryl) #21 caps epinephrine 0.3 mg/0.3 mL 0.3 mg (0.3 mL) IM Q4H PRN 01/25/23 injection, auto-injector anaphylaxis #2 ea atorvastatin 80 mg tablet 80 mg PO DAILY #90 tabs 08/11/23 tadalafil 5 mg tablet 5 mg PO DAILY sexual activity 90 12/14/23 days #90 tabs tamsulosin 0.4 mg capsule 0.4 mg PO BEDTIME 90 days #90 caps 12/14/23 losartan 25 mg tablet 25 mg PO DAILY 30 days #30 tabs 01/17/24 pen needle, diabetic 31 gauge x #100 ea 01/18/24/ omeprazole 40 mg capsule,delayed 40 mg PO DAILY #90 caps 01/19/24 release Allergies Allergy/AdvReac Type Severity Reaction Status Date / Time codeine [CODEINE] Allergy Unknown TACHYCARDIA Verified 02/02/24 16:27 Codeine Phosphate AdvReac Severe Unknown Uncoded 02/02/24 16:27 glp-1 agonist AdvReac Severe Unknown Uncoded 02/02/24 16:27 codeine AdvReac Unknown anaphylaxis Uncoded 02/02/24 16:27 Review of Systems 2 Review of Systems: Yes all other systems are reviewed and are negative Constitutional: Constitutional: Denies fatigue and Denies fever(s) Cardiovascular: Cardiovascular: Denies chest pain and Denies dyspnea Respiratory: Respiratory: Denies cough and Denies dyspnea Gastrointestinal: Gastrointestinal: Reports abdominal pain, Denies diarrhea, Reports nausea and Denies vomiting Endocrine: Endocrine: Denies fatigue PMF Past Medical History Attestation statement: The following information was validated with the patient. Medical History Erectile dysfunction Vitamin D deficiency Multinodular thyroid Other and unspecified hyperlipidemia Type 2 diabetes mellitus with unspecified complications Essential hypertension Aortic valve calcification Surgical History History of esophagogastroduodenoscopy (EGD) H/O colonoscopy Family History Family History (Updated 02/02/24 @ 07:52 by Arpita Issa [facility]) Father Stroke Brother Stroke Mother Diabetes Social History Social History Household Members: Spouse Housing: House Alcohol intake: never Patient Tobacco Use Status: Former Tobacco user e-Cigarette/Vaping Use: Never Used Advance Directives: No Advance Directives Information Provided: Yes service: No Current occupational status: disabled Cognitive needs: No Hearing needs: No Vision needs: Yes Physical Exam ED Vital Signs: Vital Signs - 24 hr 02/01/24 22:00 02/01/24 23:55 02/02/24 00:08 Temperature 98.5 F 98.0 F 98.0 F Pulse Rate 102 H 98 98 Respiratory Rate 16 15 15 Blood Pressure 111/71 120/73 120/73 Pulse Oximetry 96 95 95 Oxygen Delivery Method Room Air Room Air Room Air BMI result Body Mass Index 25.1 Const Other: Alert well-appearing Orientation/consciousness: patient oriented x3 Resp Other: Nonlabored respiration Cardio Other: Normal peripheral perfusion GI Other: Abdomen is soft, nondistended, tenderness across the entire abdomen, right greater than left, mild involuntary guarding Skin Other: Warm dry no rash Neuro General: patient oriented x3, no focal motor deficits and CN's II-XI intact bilaterally Psych Other: Calm cooperative Course Course Course Narrative: This is a rapid medical exam performed by Farhad Hutson NP: Additional HPI, ROS, PE not included below will be deferred to primary provider. Patient is a 63-year-old Uzbek speaking male with history of pancreatitis presenting with complaint of epigastric abdominal pain since this am, 01/05. Also reports diarrhea. Plan: labs, UA, us Medications Administered Discontinued Medications Generic Name Dose Route Start Last Admin Trade Name Yane PRN Reason Stop Dose Admin Acetaminophen 975 mg 02/01/24 23:43 02/01/24 23:52 Acetaminophen 325 Mg Tablet PO 02/01/24 23:44 975 mg ONCE ONE Administration Sodium Chloride 1,000 mls @ 999 mls/hr 02/01/24 20:15 02/01/24 21:18 Ns IV 02/01/24 21:15 Infused .Q1H1M MARCE Infusion Iohexol 85 ml 02/01/24 20:30 02/01/24 20:30 Iohexol 350 Mg/Ml 100 Ml Infus..Btl IV 02/01/24 20:31 85 ml ONCE ONE Administration Ketorolac Tromethamine 15 mg 02/01/24 20:06 02/01/24 20:16 Ketorolac Tromethamine 15 Mg/Ml Vial IVPUSH 02/01/24 20:07 15 mg ONCE ONE Administration Ondansetron HCl 4 mg 02/01/24 20:05 02/01/24 20:15 Ondansetron Hcl 4 Mg/2 Ml Vial IVPUSH 02/01/24 20:06 4 mg ONCE ONE Administration Medical Decision Making Medical Decision Making [facility] Narrative: 63-year-old male with a history of diabetes, subsequent pancreatitis secondary to the use of Trulicity, GERD and hypertension, presents with upper abdominal discomfort x1 day. Pain over entire upper abdomen, nonradiating, unable to describe the nature of his symptoms. Associated nausea no vomiting. Denies fevers. Denies alcohol abuse history. Denies abdominal distention, inability to pass flatus. Problem: Diabetes History: Per patient I have considered the following differential diagnoses: Biliary colic, cholecystitis, pancreatitis, gastritis, gallstone pancreatitis Plan: Given distribution of discomfort in nature of symptoms, I am considering potential biliary versus gastric versus pancreatic etiology as cause for his symptoms. The patient has more pain on the right versus the left, which is odd, his lipase is minimally elevated. Perhaps he has gallstone pancreatitis. We will obtain a CT scan. Giving Toradol Zofran and IV fluid. Screening labs were completed from triage I have independently reviewed the following tests: Labs: No leukocytosis, not anemic, no electrolyte abnormality, lipase elevated at 163, alk-phos minimally elevated at 127, the remainder of LFTs are normal CT abdomen and pelvis: CT/CT abdomen pelvis w IV con IMPRESSION: Interval large cystic mass in the body of the pancreas partially engulfing the pancreas. Findings are suspicious for cystic pancreatic lesion. There is peripancreatic fluid soft tissue density likely reactive inflammatory process. Even though the lesion measures simple cyst a cystic neoplasm cannot exclude. Acute on chronic pancreatitis is considered less likely. No abnormal retroperitoneal lymph nodes seen. Recommend MRI abdomen for further correlation. Fleischner guidelines were followed. Electronically signed by: Oscar Correa MD 02/01/2024 09:31 PM [facility] I discussed findings with the patient, it is ideal he has an appointment with his primary care provider scheduled for today, outpatient MRI can be ordered then. Lab Data 02/01/24 15:03 02/01/24 15:03 Labs: Lab Results 02/01/24 02/01/24 Range/Units 15:03 20:08 WBC 4.9 (4.8-10.8) X10*3/uL RBC 5.58 (4.60-5.80) X10*6/uL Hgb 15.8 (14.0-18.0) g/dl Hct 46.2 (42.0-52.0) % MCV 82.8 (80.0-98.0) fL MCH 28.3 (27.0-33.0) pg MCHC 34.2 (31.0-36.0) g/dl RDW 12.4 (11.0-16.0) % Plt Count 209 D (160-400) X10*3/uL MPV 10.0 (9.4-12.4) fL Immature Gran % (Auto) 0.2 (0.0-0.4) % Neut % (Auto) 55.3 (45-73) % Lymph % (Auto) 31.0 (20-40) % Prentiss % (Auto) 9.6 (2-11) % Eos % (Auto) 3.5 (0-4) % Baso % (Auto) 0.4 (0-2) % Lymph # (Auto) 1.5 (1.2-4.9) X10*3/uL Prentiss # (Auto) 0.5 (0.1-1.2) X10*3/uL Eos # (Auto) 0.2 (0.0-0.4) X10*3/uL Baso # (Auto) 0.0 (0.0-0.2) X10*3/uL Abs Immat Gran (auto) 0.01 (0.00-0.03) X10*3/uL Absolute Neuts (auto) 2.7 (2.0-8.3) x10*3/uL Absolute Nucleated RBC 0.000 (0.0-0.012) X10*3/uL Nucleated RBC % (auto) 0.0 (0.0-0.2) /100WBC PT 11.9 (10.9-12.4) SEC INR 1.0 (0.9-1.1) Sodium 136 (135-145) mmol/L Potassium 4.5 (3.3-5.1) mmol/L Chloride 100 (96-108) mmol/L Carbon Dioxide 28 (22-29) mmol/L Anion Gap 13 (12-20) BUN 17 H (9-16) mg/dL Creatinine 1.02 (0.5-1.4) mg/dL Estim Creat Clear Calc 72.6 Estimated GFR > 60 POC Glucose 205 H (60-115) mg/dL Random Glucose 221 H (60-115) mg/dL Calcium 9.8 (8.4-10.2) mg/dL Magnesium 1.9 (1.6-2.6) mg/dL Total Bilirubin 0.5 (0.0-1.0) mg/dL AST 22 (5-37) U/L ALT 34 (0-40) U/L Alkaline Phosphatase 127 H (39-117) U/L Total Protein 7.7 (6.5-8.0) g/dL Albumin 4.3 (3.5-5.0) g/dL Amylase 169 H (28-100) U/L Lipase 163 H (8-78) U/L Urine Color Dark Yellow Urine Appearance Clear Urine pH 5.5 (5.0-9.0) Ur Specific Roosevelt >= 1.030 H (1.005-1.025) Urine Protein 100 (2+) H (Neg-Trace) mg/dL Urine Glucose (UA) >=1000 H (Negative) mg/dL Urine Ketones Trace (Negative) mg/dL Urine Blood Negative (Negative) Urine Nitrite Negative (Negative) Ur Leukocyte Esterase Negative (Negative) Urine RBC 0-2 (0-2) /HPF Urine WBC 0-5 (0-5) /HPF Ur Squamous Epith Cells 0-2 (0-2) /HPF Urine Bacteria None Seen (None Seen) Hyaline Casts 0-2 (0-2) /LPF Ethyl Alcohol < 10 mg/dL Discharge Plan Discharge Clinical Impression: Pancreatic lesion Pancreatitis Qualifiers: Chronicity: acute Pancreatitis type: other Acute pancreatitis complication: u nspecified Qualified Code(s): K85.80 - Other acute pancreatitis without necrosis or infection Patient Disposition: Home, Self-Care Instructions: Pancreatitis (ED) Additional Instructions: You were found to have mild pancreatitis with a presumably new pancreatic lesion. Keep your appointment with your primary care provider scheduled for today, they need to schedule an outpatient MRI of the abdomen to better differentiate what this lesion is. Prescriptions: No Action (DME) pen needle, diabetic 31 gauge x 5/16 needle See Rx Instructions .Route Qty: 100 1RF Rx Instructions: Use to inject insulin once a day omeprazole 40 mg capsule,delayed release(DR/EC) 40 mg PO DAILY Qty: 90 0RF ibuprofen 600 mg tablet 600 mg PO Q6H PRN (Reason: fever or pain) Qty: 30 0RF albuterol sulfate [Ventolin HFA] 90 mcg/actuation HFA aerosol inhaler 2 puff inhalation Q4-6H PRN (Reason: wheezing) diphenhydramine HCl [Benadryl] 25 mg capsule 25 mg PO TID PRN (Reason: itching) 7 Days Qty: 21 0RF epinephrine 0.3 mg/0.3 mL auto-injector 0.3 mg IM Q4H PRN (Reason: anaphylaxis) Qty: 2 0RF Rx Instructions: inject into thigh if having signs of anyphylaxis. metformin 500 mg tablet 500 mg PO BID gabapentin 600 mg tablet 600 mg PO BEDTIME fluticasone propionate 50 mcg/actuation spray,suspension 1 spray intranasal DAILY Rx Instructions: administer into each nostril (DME) lancets [FreeStyle Lancets] 28 gauge misc See Rx Instructions .ROUTE DAILY Qty: 100 Rx Instructions: As directed atorvastatin 80 mg tablet 80 mg PO DAILY Qty: 90 4RF fluoxetine 40 mg capsule 40 mg PO DAILY hydroxyzine HCl 10 mg tablet 10 mg PO BEDTIME PRN (Reason: Anxiety) clonazepam 1 mg tablet 1 mg PO BEDTIME PRN (Reason: Anxiety) (DME) blood sugar diagnostic Strip See Rx Instructions Not Applicable DAILY Qty: 10 Rx Instructions: As directed cholecalciferol (vitamin D3) 50 mcg (2,000 unit) capsule 50 mcg PO DAILY 30 Days Qty: 30 11RF aspirin 81 mg tablet,chewable PO tadalafil 5 mg tablet 5 mg PO DAILY 90 Days Qty: 90 1RF Rx Instructions: Take daily for bladder and erections tamsulosin 0.4 mg capsule 0.4 mg PO BEDTIME 90 Days Qty: 90 3RF insulin glargine [Lantus Solostar U-100 Insulin] 100 unit/mL (3 mL) insulin pen 14 unit subcut QPM losartan 25 mg tablet 25 mg PO DAILY 30 Days Qty: 30 2RF Interventions: ED Discharge Assessment Last Done: 02/02/24 00:08 Discharge Date/Time: 02/02/24 00:15 Print Language: Uzbek
--- NOTE | 2024-02-01 14:38 | ECG_ITS ---
Test Reason : chest apin Blood Pressure : / mmHG Vent. Rate : 083 BPM Atrial Rate : 083 BPM P-R Int : 194 ms QRS Dur : 084 ms QT Int : 344 ms P-R-T Axes : 025 -31 005 degrees QTc Int : 404 ms Normal sinus rhythm Left axis deviation Abnormal ECG When compared with ECG of 11-AUG-2022 20:48, No significant change was found Referred By: Idalmis Hutson Electronically Signed By:LUIGI CAT MD
[2024-02-01 15:07] LABS: MANUAL DIFF FLAG NO
[2024-02-01 15:10] LABS: Appearance Urine Clear; Color Urine Dark Yellow; Glucose Urine UA >=1000 mg/dL (Negative); Leukocyte Esterase Urine Negative (Negative); Nitrite Urine Negative (Negative); PH 5.5 (5.0-9.0); Specific Gravity - Urine >= 1.030 (1.005-1.025); UMIC TRIGGER UACC YES; Urine Blood Negative (Negative); Urine Ketones Trace mg/dL (Negative); Urine Protein 100 (2+) mg/dL (Neg-Trace)
[2024-02-01 15:11] LABS: Basophils Percent Auto 0.4 % (0-2); Eosinophils Absolute Auto 0.2 X10*3/uL (0.0-0.4); Eosinophils Percent Auto 3.5 % (0-4); Hematocrit 46.2 % (42.0-52.0); Hemoglobin 15.8 g/dl (14.0-18.0); Imm Gran Abs Auto 0.01 X10*3/uL (0.00-0.03); Imm Gran Pct Auto 0.2 % (0.0-0.4); Lymphocytes Absolute Auto 1.5 X10*3/uL (1.2-4.9); Mean Corpuscular HGB Conc 34.2 g/dl (31.0-36.0); Mean Corpuscular Hemoglobin 28.3 pg (27.0-33.0); Mean Corpuscular Volume 82.8 fL (80.0-98.0); Monocytes Absolute Auto 0.5 X10*3/uL (0.1-1.2); Monocytes Percent Auto 9.6 % (2-11); Neutrophils Absolute Auto 2.7 x10*3/uL (2.0-8.3); Neutrophils Percent Auto 55.3 % (45-73); Platelet Count 209 X10*3/uL (160-400); Red Blood Count 5.58 X10*6/uL (4.60-5.80); Red Cell Distribution Width 12.4 % (11.0-16.0); White Blood Count 4.9 X10*3/uL (4.8-10.8)
[2024-02-01 15:12] LABS: Bacteria Urine None Seen (None Seen); Hyaline Casts Urine 0-2 /LPF (0-2); RBC Urine 0-2 /HPF (0-2); Squamous Epithelial Cell Urine 0-2 /HPF (0-2); WBC Urine 0-5 /HPF (0-5)
[2024-02-01 15:17] LABS: Prothrombin Time 11.9 SEC (10.9-12.4)
[2024-02-01 15:41] LABS: Alanine Aminotransferase 34 U/L (0-40); Albumin Level 4.3 g/dL (3.5-5.0); Alkaline Phosphatase 127 U/L (39-117); Anion Gap 13 (12-20); Aspartate Amino Transferase 22 U/L (5-37); Bilirubin Total 0.5 mg/dL (0.0-1.0); Blood Urea Nitrogen 17 mg/dL (9-16); Calcium 9.8 mg/dL (8.4-10.2); Carbon Dioxide 28 mmol/L (22-29); Chloride 100 mmol/L (96-108); Creatinine Clr Calc Pharmacy 72.6; Estimated Glomerular Filt Rate > 60; Ethanol < 10 mg/dL; Glucose Random 221 mg/dL (60-115); Lipase 163 U/L (8-78); Magnesium 1.9 mg/dL (1.6-2.6); Potassium 4.5 mmol/L (3.3-5.1); Sodium 136 mmol/L (135-145); Total Protein 7.7 g/dL (6.5-8.0)
[2024-02-01 16:05] LABS: Amylase 169 U/L (28-100)
[2024-02-01 19:18] VITALS: BP 136/88; PULSE 107; RESP 20; TEMP 36.7; O2SAT 98
[2024-02-01 20:00] VITALS: BP 124/91; PULSE 110; RESP 17; TEMP 36.7; O2SAT 99
[2024-02-01 20:12] LABS: Glucose, Whole Blood 205 mg/dL (60-115)
[2024-02-01] MEDS: 0.9 % Sodium Chloride 1,000 ML 999 ML IV (20:15)
[2024-02-01] MEDS: ondansetron HCL 4 MG/2 ML VIAL IVPUSH (20:15)
[2024-02-01] MEDS: Ketorolac Tromethamine 15 MG/ML VIAL IVPUSH (20:16)
[2024-02-01] MEDS: iohexoL 350 MG/ML 100 ML INFUS..BTL 85 ML IV (20:30)
[2024-02-01 22:00] VITALS: BP 111/71; PULSE 102; RESP 16; TEMP 36.9; O2SAT 96
--- NOTE | 2024-02-01 23:28 | MHC.EDTECH ---
at this time this tech entered room to round on pt and the pt was witnessed resting quietly on stretcher, appeared to be in no apparent distress and requested to get medication for a headache, RN notified
[2024-02-01] MEDS: Acetaminophen 325 MG TABLET 975 MG PO (23:52)
[2024-02-01 23:55] VITALS: BP 120/73; PULSE 98; RESP 15; TEMP 36.7; O2SAT 95
[2024-02-02 00:08] VITALS: BP 120/73; PULSE 98; RESP 15; TEMP 36.7; O2SAT 95
== END 2024-02-02 00:15 | disposition home or self-care (01) ==
PROVIDERS: Registered Nurse Emergency; Emergency Provider Emergency Medicine Emergency Medical Services; PCP Nurse Practitioner Family
DX: K85.80 Other acute pancreatitis without necrosis or infection (principal); R07.89 Other chest pain; R10.10 Upper abdominal pain, unspecified; E11.9 Type 2 diabetes mellitus without complications; R10.2 Pelvic and perineal pain; Z79.85 Long-term (current) use of injectable non-insulin antidiabetic drugs; Z79.899 Other long term (current) drug therapy; Z51.81 Encounter for therapeutic drug level monitoring; Z79.4 Long term (current) use of insulin
CPT/HCPCS: 36415; 74177; 80053; 80307; 81001; 82150; 82947; 83690; 83735; 85025; 85610; 93005; 96374; 96375; 99284; 99285; J1885; J2405; Q9967

== ENCOUNTER → 2024-02-01 14:38 | Outpatient (BNV) | payer MEDICARE, MEDICAID, SELFPAY | PROVIDERS: PCP Nurse Practitioner Family; Visit Provider Internal Medicine Cardiovascular Disease | DX: R07.9 Chest pain, unspecified (principal); R94.31 Abnormal electrocardiogram [ECG] [EKG] | CPT/HCPCS: 93010 ==

== ENCOUNTER 2024-02-02 07:40 | Outpatient (AMB) | payer MEDICARE, MEDICAID, SELFPAY ==
--- NOTE | 2024-02-02 07:47 | A.OFFPC_ITS ---
Vital Signs 02/02/24 07:50 Height 5 ft 8 in Weight 168 lb BMI 25.5 BP 118/82 Blood Pressure Location Lt brachial Position Sitting Pulse 85 Pulse Source Pulse Oximeter Pulse Oximetry (%) 96 Oxygen Delivery Method Room Air Intake Visit Reasons: EDF Intake Note: Pt is here today for EDF Allergies codeine [CODEINE] Allergy (Unknown, Verified 02/02/24 07:47) TACHYCARDIA Codeine Phosphate Adverse Reaction (Severe, Uncoded 02/02/24 07:47) Unknown glp-1 agonist Adverse Reaction (Severe, Uncoded 02/02/24 07:47) Unknown codeine Adverse Reaction (Unknown, Uncoded 02/02/24 07:47) anaphylaxis Tobacco use date assessed: 02/02/24 Dental Screening Dental Screen Date: 02/02/24 Did you have a dental visit in the last 12 months?: Yes Did you have a dental problem in the last 6 months where you did not have access to dental care?: Yes Was dental information given to patient?: Patient has dentist HPI HPI Comments History of Present Illness Details 63 y/o patient who presents to the clini c today for EDF. He was admitted at [facility] on 02/01/24 for Abdominal pain and was discharged home the same day. His Pmhx significant for HTN, ED, Pancreatitis, GERD, ED, T2DM and now Pancreatic Lesion. Recent CT-Abdomen showed Pancreatic lesion: IMPRESSION: Interval large cystic mass in the body of the pancreas partially engulfing the pancreas. Findings are suspicious for cystic pancreatic lesion. There is peripancreatic fluid soft tissue density likely reactive inflammatory process. Even though the lesion measures simple cyst a cystic neoplasm cannot exclude. Acute on chronic pancreatitis is considered less likely. No abnormal retroperitoneal lymph nodes seen. Recommend MRI abdomen for further correlation. [facility] Medical History Erectile dysfunction Vitamin D deficiency Multinodular thyroid Other and unspecified hyperlipidemia Type 2 diabetes mellitus with unspecified complications Essential hypertension Aortic valve calcification Surgical History History of esophagogastroduodenoscopy (EGD) H/O colonoscopy Family History (Updated 02/02/24 @ 07:52 by Arpita Issa [facility]) Father Stroke Brother Stroke Mother Diabetes Social History Household Members: Spouse Housing: House Alcohol intake: never Patient Tobacco Use Status: Former Tobacco user e-Cigarette/Vaping Use: Never Used service: No Current occupational status: disabled Cognitive needs: No Hearing needs: No Vision needs: Yes Questionnaire PHQ-9 Over the last 2 weeks, how often have you been bothered by any of the following problems? 4. Feeling tired or having little energy: several days 5. Poor appetite or overeating: not at all 6. Feeling bad about yourself - or that you are a failure or have let yourself or your family down: not at all 7. Trouble concentrating on things, such as reading the newspaper or watching television: not at all 8. Moving or speaking so slowly that other people could have noticed. Or the opposite - being so fidgety or restless that you have been moving around a lot more than usual: not at all Source: Developed by Drs. Isidoro England, Kylie Fabian, Arnol Muñiz and colleagues, with an educational timur from [employer]. Thrive Questionnaire Date Thrive assessed: 04/21/23 LOBO-7 AMB Questionnaire LOBO-7 Date LOBO - 7 assessed: 04/21/23 Source: Developed by Drs. Isidoro England, Kylie Fabian, Arnol Muñiz and colleagues, with an educational timur from [employer]. Review of Systems Const All systems reviewed & are unremarkable except as noted in HPI and below Physical exam (Primary Care) Vital Signs: Last Vital Signs Pulse 85 02/02/24 07:50 BP 118/82 02/02/24 07:50 Pulse Ox 96 02/02/24 07:50 Oxygen Delivery Method Room Air 02/02/24 07:50 BMI result Body Mass Index 25.5 Tobacco/Smoking Status: Tobacco use Status Tobacco use date assessed 02/02/24 02/02/24 07:55 Patient Tobacco Use Status Former Tobacco user 02/02/24 07:50 e-Cigarette/Vaping Use Never Used 02/02/24 07:50 Thrive Assessment: Date of Thrive Assessment Date Thrive assessed 04/21/23 02/02/24 07:50 Const General: no acute distress Orientation/consciousness: patient oriented x3 Resp Effort & Inspection: normal respiratory effort Auscultation: clear to auscultation bilaterally Cardio Heart sounds: S1 normal heart sound present and S2 normal heart sound present GI Palpation (GI): Soft to palpation, not firm, Tenderness to palpation present (GI) in the epigastrum, no guarding, not rigid and No hepatosplenomegaly present Auscultation: normal bowel sounds Skin General skin exam: no rashes or lesions noted Neuro General: patient oriented x3 Coding Level of Care Code Est Pt Level 4 (53811) Diagnoses Pancreatic lesion K86.9 Other acute pancreatitis, unspecified complication status K85.80 Acute pancreatitis complication: unspecified Chronicity: acute Pancreatitis type: other Time Spent (min) 20 Assessment & Plan Assessment & Plan (1) Pancreatic lesion: Code(s): K86.9 - Disease of pancreas, unspecified Category: Medical Plan: Ordered MRI (2) Pancreatitis: Code(s): K85.90 - Acute pancreatitis without necrosis or infection, unspecified Category: Medical Qualifiers: Acute pancreatitis complication: unspecified Chronicity: acute Pancreatitis type: other Qualified Code(s): K85.80 - Other acute pancreatitis without necrosis or infection Plan: Continue on current regiment. Plan Weight loss and lifestyle changes. Orders: Orders MR abdomen wo/w con Today K86.9 - Disease of pancreas, unspecified
[2024-02-02 07:50] VITALS: BP 118/82; PULSE 85; O2SAT 96; BMI 25.5
== END 2024-02-02 09:04 | disposition home or self-care (01) ==
PROVIDERS: PCP Nurse Practitioner Family; Visit Provider Nurse Practitioner Family
DX: K86.9 Disease of pancreas, unspecified (principal); K85.80 Other acute pancreatitis without necrosis or infection

== ENCOUNTER 2024-02-02 16:08 | Emergency (ER) | payer MEDICARE, MEDICAID, SELFPAY ==
[2024-02-02 16:24] VITALS: BP 121/74; PULSE 101; RESP 20; TEMP 36.6; O2SAT 96; BMI 24.8
--- NOTE | 2024-02-02 16:25 | ED.ABDPAIN ---
HPI - Abdominal Pain General Chief Complaint: General Medical Stated Complaint: abd pain Time Seen by Provider: 02/02/24 23:53 Source: patient Limitations: language barrier History of Present Illness ED Provider: Suki delgado PA-C HPI narrative: 63-year-old male with a known new pancreatic lesion, presents with ongoing abdominal pain. Patient seen in the emergency department yesterday, diagnosed with a new lesion. Had follow up with his primary care provider to day, an outpatient MRI was scheduled. He was advised to use Tylenol for his pain. The Tylenol is not effective. Was given Toradol yesterday in the emergency room, this helped his discomfort. No new symptoms. Related Data Home Medications ?Medication ?Instructions ?Recorded ?Confirmed fluoxetine 40 mg capsule 40 mg PO DAILY 03/28/20 01/17/24 hydroxyzine HCl 10 mg tablet 10 mg PO BEDTIME PRN Anxiety 03/28/20 01/17/24 blood sugar diagnostic #10 ea 05/06/20 01/17/24 clonazepam 1 mg tablet 1 mg PO BEDTIME PRN Anxiety 06/17/21 01/17/24 albuterol sulfate 90 mcg/actuation 2 puff inhalation Q4-6H PRN 08/11/22 01/17/24 aerosol inhaler (Ventolin HFA) wheezing fluticasone propionate 50 1 spray intranasal DAILY 01/18/23 01/17/24 mcg/actuation nasal spray,suspension gabapentin 600 mg tablet 600 mg PO BEDTIME 01/18/23 01/17/24 metformin 500 mg tablet 500 mg PO BID 01/18/23 01/17/24 lancets 28 gauge (FreeStyle #100 ea 03/04/23 01/17/24 Lancets) aspirin 81 mg chewable tablet PO 11/15/23 01/17/24 insulin glargine 100 unit/mL (3 14 unit subcut QPM 01/28/24 mL) subcutaneous pen (Lantus Solostar U-100 Insulin) Previous Rx's ?Medication ?Instructions ?Recorded cholecalciferol (vitamin D3) 50 50 mcg PO DAILY 30 days #30 caps 05/04/22 mcg (2,000 unit) capsule ibuprofen 600 mg tablet 600 mg PO Q6H PRN fever or pain 11/30/22 #30 tabs diphenhydramine HCl 25 mg capsule 25 mg PO TID PRN itching 7 days 01/25/23 (Benadryl) #21 caps epinephrine 0.3 mg/0.3 mL 0.3 mg (0.3 mL) IM Q4H PRN 01/25/23 injection, auto-injector anaphylaxis #2 ea atorvastatin 80 mg tablet 80 mg PO DAILY #90 tabs 08/11/23 tadalafil 5 mg tablet 5 mg PO DAILY sexual activity 90 12/14/23 days #90 tabs tamsulosin 0.4 mg capsule 0.4 mg PO BEDTIME 90 days #90 caps 12/14/23 losartan 25 mg tablet 25 mg PO DAILY 30 days #30 tabs 01/17/24 pen needle, diabetic 31 gauge x #100 ea 01/18/2408/11 omeprazole 40 mg capsule,delayed 40 mg PO DAILY #90 caps 01/19/24 release ketorolac 10 mg tablet 10 mg PO Q6H PRN pain #20 tabs 02/03/24 Allergies Allergy/AdvReac Type Severity Reaction Status Date / Time codeine [CODEINE] Allergy Unknown TACHYCARDIA Verified 02/02/24 16:27 Codeine Phosphate AdvReac Severe Unknown Uncoded 02/02/24 16:27 glp-1 agonist AdvReac Severe Unknown Uncoded 02/02/24 16:27 codeine AdvReac Unknown anaphylaxis Uncoded 02/02/24 16:27 Review of Systems Review of Systems Yes all other systems are reviewed and are negative Constitutional: Denies fatigue and Denies fever(s) Cardiovascular: Denies chest pain and Denies dyspnea Respiratory: Denies dyspnea Gastrointestinal: Reports abdominal pain, Denies nausea and Denies vomiting Endocrine: Denies fatigue PMFSH Past Medical History Attestation statement: The following information was validated with the patient. Medical History Erectile dysfunction Vitamin D deficiency Multinodular thyroid Other and unspecified hyperlipidemia Type 2 diabetes mellitus with unspecified complications Essential hypertension Aortic valve calcification Surgical History History of esophagogastroduodenoscopy (EGD) H/O colonoscopy Family History Family History (Updated 02/02/24 @ 07:52 by Arpita Issa CMA) Father Stroke Brother Stroke Mother Diabetes Social History Social History Household Members: Spouse Housing: House Alcohol intake: never Patient Tobacco Use Status: Former Tobacco user Smoked in Last 30 Days: No e-Cigarette/Vaping Use: Never Used Use of substances other than those prescribed or required for medical reasons: No Advance Directives: No Advance Directives Information Provided: Yes service: No Current occupational status: disabled Cognitive needs: No Hearing needs: No Vision needs: Yes Physical Exam ED Vital Signs: Vital Signs - 24 hr 02/02/24 16:24 02/02/24 20:17 02/02/24 22:32 Temperature 97.8 F 98.0 F 98.9 F Pulse Rate 101 H 104 H 105 H Respiratory Rate 20 17 14 Blood Pressure 121/74 126/84 120/84 Pulse Oximetry 96 97 96 Oxygen Delivery Method Room Air Room Air Room Air 02/03/24 00:14 Temperature 97.6 F Pulse Rate 100 Respiratory Rate 18 Blood Pressure 119/79 Pulse Oximetry 96 Oxygen Delivery Method Room Air BMI result Body Mass Index 24.8 Const Other: Alert, well-appearing Orientation/consciousness: patient oriented x3 Resp Other: Nonlabored respiration Cardio Other: Normal peripheral perfusion GI Other: Abdomen is soft, nondistended, mild tenderness in upper abdomen no guarding Skin Other: Warm dry no rash Neuro General: patient oriented x3, no focal motor deficits and CN's II-XI intact bilaterally Psych Other: Calm cooperative Course Course Course Narrative: This is a Rapid Medical Examination (RME) performed by Ken Tan PA-C in triage. Full HPI, ROS, assessment and treatment plan per primary provider in the Main ED. 63 yo male here for RUQ abd pain. seen here yest for same. diagnosed w/ mild pancreatitis and ?new pancreatic lesions. f/u w/ PCP today. will be setting up out patient MRI. presents with continued pain to RUQ. he has not taken anything for the pain at home, states i have nothing . he was not prescribed anything by ED provider or PCP. Plan: pain control Medical Decision Making Medical Decision Making MDM Narrative: 63-year-old male with a known new pancreatic lesion, presents with ongoing abdominal pain. Patient seen in the emergency department yesterday, diagnosed with a new lesion. Had follow up with his primary care provider to day, an outpatient MRI was scheduled. He was advised to use Tylenol for his pain. The Tylenol is not effective. Was given Toradol yesterday in the emergency room, this helped his discomfort. No new symptoms. Problem: New pancreatic lesion History: Per patient I have considered the following differential diagnoses: Need for different analgesia Plan: We will send the patient with ketorolac, given intramuscular dose of Toradol now. His labs are improved from yesterday, there was no indication for repeat imaging , he has appropriate follow up. I have independently reviewed the following tests: Labs: No leukocytosis, not anemic, no electrolyte abnormality, lipase less than it was yesterday. Lab Data 02/02/24 17:25 02/02/24 17:25 Labs: Lab Results 02/02/24 Range/Units 17:25 WBC 6.7 (4.8-10.8) X10*3/uL RBC 5.56 (4.60-5.80) X10*6/uL Hgb 15.6 (14.0-18.0) g/dl Hct 46.3 (42.0-52.0) % MCV 83.3 (80.0-98.0) fL MCH 28.1 (27.0-33.0) pg MCHC 33.7 (31.0-36.0) g/dl RDW 12.6 (11.0-16.0) % Plt Count 186 (160-400) X10*3/uL MPV 10.1 (9.4-12.4) fL Immature Gran % (Auto) 0.3 (0.0-0.4) % Neut % (Auto) 64.9 (45-73) % Lymph % (Auto) 23.9 (20-40) % Callaway % (Auto) 8.4 (2-11) % Eos % (Auto) 2.4 (0-4) % Baso % (Auto) 0.1 (0-2) % Lymph # (Auto) 1.6 (1.2-4.9) X10*3/uL Callaway # (Auto) 0.6 (0.1-1.2) X10*3/uL Eos # (Auto) 0.2 (0.0-0.4) X10*3/uL Baso # (Auto) 0.0 (0.0-0.2) X10*3/uL Abs Immat Gran (auto) 0.02 (0.00-0.03) X10*3/uL Absolute Neuts (auto) 4.3 (2.0-8.3) x10*3/uL Absolute Nucleated RBC 0.000 (0.0-0.012) X10*3/uL Nucleated RBC % (auto) 0.0 (0.0-0.2) /100WBC Sodium 137 (135-145) mmol/L Potassium 4.7 (3.3-5.1) mmol/L Chloride 102 (96-108) mmol/L Carbon Dioxide 24 (22-29) mmol/L Anion Gap 16 (12-20) BUN 18 H (9-16) mg/dL Creatinine 0.95 (0.5-1.4) mg/dL Estim Creat Clear Calc 78.0 Estimated GFR > 60 Random Glucose 280 H (60-115) mg/dL Calcium 9.6 (8.4-10.2) mg/dL Magnesium 1.9 (1.6-2.6) mg/dL Total Bilirubin 0.5 (0.0-1.0) mg/dL AST 19 (5-37) U/L ALT 28 (0-40) U/L Alkaline Phosphatase 109 (39-117) U/L Total Protein 7.5 (6.5-8.0) g/dL Albumin 4.1 (3.5-5.0) g/dL Lipase 149 H (8-78) U/L Medications Administered Discontinued Medications Generic Name Dose Route Start Last Admin Trade Name Yane PRN Reason Stop Dose Admin Acetaminophen 975 mg 02/02/24 17:50 02/02/24 17:52 Acetaminophen 325 Mg Tablet PO 02/02/24 17:51 975 mg ONCE ONE Administration Ketorolac Tromethamine 30 mg 02/03/24 00:19 02/03/24 00:28 Ketorolac Tromethamine 30 Mg/Ml Vial IM 02/03/24 00:20 30 mg ONCE ONE Administration Discharge Plan Discharge Clinical Impression: Abdominal pain Patient Disposition: Home, Self-Care Instructions: Abdominal Pain (ED) Additional Instructions: Your labs are improved from yesterday. If the medication that I prescribed helped your discomfort, you can request that your primary care continue to refill this medication until you have the outpatient MRI. Prescriptions: New ketorolac 10 mg tablet 10 mg PO Q6H PRN (Reason: pain) Qty: 20 0RF Rx Instructions: maximum total duration of 5 days from all oral, intranasal, or parenteral formulations. Patient received an intramuscular dose of Toradol here in the emergency department No Action (DME) pen needle, diabetic 31 gauge x 5/16 needle See Rx Instructions .Route Qty: 100 1RF Rx Instructions: Use to inject insulin once a day omeprazole 40 mg capsule,delayed release(DR/EC) 40 mg PO DAILY Qty: 90 0RF ibuprofen 600 mg tablet 600 mg PO Q6H PRN (Reason: fever or pain) Qty: 30 0RF albuterol sulfate [Ventolin HFA] 90 mcg/actuation HFA aerosol inhaler 2 puff inhalation Q4-6H PRN (Reason: wheezing) diphenhydramine HCl [Benadryl] 25 mg capsule 25 mg PO TID PRN (Reason: itching) 7 Days Qty: 21 0RF epinephrine 0.3 mg/0.3 mL auto-injector 0.3 mg IM Q4H PRN (Reason: anaphylaxis) Qty: 2 0RF Rx Instructions: inject into thigh if having signs of anyphylaxis. metformin 500 mg tablet 500 mg PO BID gabapentin 600 mg tablet 600 mg PO BEDTIME fluticasone propionate 50 mcg/actuation spray,suspension 1 spray intranasal DAILY Rx Instructions: administer into each nostril (DME) lancets [FreeStyle Lancets] 28 gauge misc See Rx Instructions .ROUTE DAILY Qty: 100 Rx Instructions: As directed atorvastatin 80 mg tablet 80 mg PO DAILY Qty: 90 4RF fluoxetine 40 mg capsule 40 mg PO DAILY hydroxyzine HCl 10 mg tablet 10 mg PO BEDTIME PRN (Reason: Anxiety) clonazepam 1 mg tablet 1 mg PO BEDTIME PRN (Reason: Anxiety) (DME) blood sugar diagnostic Strip See Rx Instructions Not Applicable DAILY Qty: 10 Rx Instructions: As directed cholecalciferol (vitamin D3) 50 mcg (2,000 unit) capsule 50 mcg PO DAILY 30 Days Qty: 30 11RF aspirin 81 mg tablet,chewable PO tadalafil 5 mg tablet 5 mg PO DAILY 90 Days Qty: 90 1RF Rx Instructions: Take daily for bladder and erections tamsulosin 0.4 mg capsule 0.4 mg PO BEDTIME 90 Days Qty: 90 3RF insulin glargine [Lantus Solostar U-100 Insulin] 100 unit/mL (3 mL) insulin pen 14 unit subcut QPM losartan 25 mg tablet 25 mg PO DAILY 30 Days Qty: 30 2RF Print Language: Thai
[2024-02-02 17:31] LABS: MANUAL DIFF FLAG NO
[2024-02-02 17:47] LABS: Basophils Percent Auto 0.1 % (0-2); Eosinophils Absolute Auto 0.2 X10*3/uL (0.0-0.4); Eosinophils Percent Auto 2.4 % (0-4); Hematocrit 46.3 % (42.0-52.0); Hemoglobin 15.6 g/dl (14.0-18.0); Imm Gran Abs Auto 0.02 X10*3/uL (0.00-0.03); Imm Gran Pct Auto 0.3 % (0.0-0.4); Lymphocytes Absolute Auto 1.6 X10*3/uL (1.2-4.9); Lymphocytes Percent Auto 23.9 % (20-40); Mean Corpuscular HGB Conc 33.7 g/dl (31.0-36.0); Mean Corpuscular Hemoglobin 28.1 pg (27.0-33.0); Mean Corpuscular Volume 83.3 fL (80.0-98.0); Mean Platelet Volume 10.1 fL (9.4-12.4); Monocytes Absolute Auto 0.6 X10*3/uL (0.1-1.2); Monocytes Percent Auto 8.4 % (2-11); Neutrophils Absolute Auto 4.3 x10*3/uL (2.0-8.3); Neutrophils Percent Auto 64.9 % (45-73); Platelet Count 186 X10*3/uL (160-400); Red Blood Count 5.56 X10*6/uL (4.60-5.80); Red Cell Distribution Width 12.6 % (11.0-16.0); White Blood Count 6.7 X10*3/uL (4.8-10.8)
[2024-02-02 17:49] LABS: Alanine Aminotransferase 28 U/L (0-40); Albumin Level 4.1 g/dL (3.5-5.0); Alkaline Phosphatase 109 U/L (39-117); Anion Gap 16 (12-20); Aspartate Amino Transferase 19 U/L (5-37); Bilirubin Total 0.5 mg/dL (0.0-1.0); Blood Urea Nitrogen 18 mg/dL (9-16); Calcium 9.6 mg/dL (8.4-10.2); Carbon Dioxide 24 mmol/L (22-29); Chloride 102 mmol/L (96-108); Estimated Glomerular Filt Rate > 60; Glucose Random 280 mg/dL (60-115); Lipase 149 U/L (8-78); Magnesium 1.9 mg/dL (1.6-2.6); Potassium 4.7 mmol/L (3.3-5.1); Sodium 137 mmol/L (135-145); Total Protein 7.5 g/dL (6.5-8.0)
[2024-02-02] MEDS: Acetaminophen 325 MG TABLET 975 MG PO (17:52)
[2024-02-02 20:17] VITALS: BP 126/84; PULSE 104; RESP 17; TEMP 36.7; O2SAT 97
[2024-02-02 22:32] VITALS: BP 120/84; PULSE 105; RESP 14; TEMP 37.2; O2SAT 96
[2024-02-03 00:14] VITALS: BP 119/79; PULSE 100; RESP 18; TEMP 36.4; O2SAT 96
--- NOTE | 2024-02-03 00:16 | PC.NURSE ---
Report taken from Alma Rosa RN, assumed care of pt at 1130. Pt resting on strecher, A&Ox3 skin color wnl, respirations even unlabored. VSS. Endorsing continued mid abd pain 12/06. Awaiting primary provider nazia, aware of plan of care.
--- NOTE | 2024-02-03 00:17 | PC.NURSE ---
Provider to bedside for primary eval.
[2024-02-03] MEDS: Ketorolac Tromethamine 30 MG/ML VIAL IM (00:28)
[2024-02-03 00:46] VITALS: BP 119/79; PULSE 100; RESP 18; TEMP 36.4; O2SAT 96
== END 2024-02-03 00:47 | disposition home or self-care (01) ==
PROVIDERS: Physician Assistant Medical; Emergency Provider Emergency Medicine; PCP Nurse Practitioner Family
DX: R10.9 Unspecified abdominal pain (principal); I10 Essential (primary) hypertension; E11.9 Type 2 diabetes mellitus without complications; Z87.891 Personal history of nicotine dependence
CPT/HCPCS: 36415; 80053; 83690; 83735; 85025; 96372; 99212; 99284; J1885

== ENCOUNTER 2024-02-04 15:15 | Outpatient (AMB) | payer MEDICARE, MEDICAID, SELFPAY ==
--- NOTE | 2024-02-04 15:14 | A.OFFVIS_ITS ---
Vital Signs 02/04/24 15:25 Height 5 ft 8 in Weight 167 lb 8.821 oz BMI 25.5 Intake Visit Reasons: Type 2 DM/LVM Intake Note: Patient presents today to re-establish treatment for Type Diabetes Mellitus: Last Diabetic eye exam was on: DUE Last Podiatry exam was on: Does not see a Drywall Finisher Foreman Most recent HbA1c: 8.2%, 01/24/2024 Random Glucose- 190 mg/dL, Today Research Chief Engineer Required: Yes Research Chief Engineer Services: Research Chief Engineer Offered & Declined Accompanied by: Sister Allergies codeine [CODEINE] Allergy (Intermediate, Verified 03/16/24 11:04) TACHYCARDIA HPI Comments Details: 63 year old type 2 diabetic who is seen at the request of his PCP. Hemoglobin A1C 01/24/2024 8.2%, 04/21/2023 6.1%, 08/11/2023 7.0% He went to the ER on 02/01/24 for abdominal pain Was initially started on treatment with metformin 500 mg twice daily Current regimen: Lantus 14 units daily Metformin 500 mg twice daily Needs glucometer and would like to go on sensor. No low sugars reported Has eyes checked yearly [Denies ] neuropathy, last foot exam [], sees podiatry. [Denies] nephropathy, on [TL/ARB]. UAC [] as measured on []. [Has] HLD, on [statin]. Last LDL [] as measured on []. [Denies] CAD. Diet: [] Weight: [] [Had] diabetes education. [facility] Medical History (Updated 03/14/24 @ 13:19 by Suki Shelton RN) Palpitations Pancreatitis Arthritis GERD (gastroesophageal reflux disease) CVA (cerebral vascular accident) Microalbuminuric diabetic nephropathy Type II diabetes with alf use of insulin Erectile dysfunction Vitamin D deficiency Multinodular thyroid Other and unspecified hyperlipidemia Essential hypertension Aortic valve calcification Surgical History History of esophagogastroduodenoscopy (EGD) H/O colonoscopy Family History Father Stroke Brother Stroke Mother Diabetes Social History Household Members: Spouse Housing: House Alcohol intake: never Patient Tobacco Use Status: Former Tobacco user e-Cigarette/Vaping Use: Never Used service: No Current occupational status: disabled Cognitive needs: No Hearing needs: No Vision needs: Yes Physical Exam Vital Signs: BMI result Body Mass Index 25.5 Absence of Cushingoid features. Absence of acromegalic features. Neck exam reveals nl size thyroid about 15 gms. No thyroid nodules palpable. No carotid bruits present. Lungs CTA. Heart S1 S2, Reg R/R. No M/R/ G. Skin exam reveals absence of vitiligo or acanthosis nigricans. Abdominal exam reveals Soft NT/ND with NA BS. No organomegaly present. Const Other: Absence of Cushingoid features. Absence of acromegalic features. Neck exam reveals nl size thyroid about 15 gms. No thyroid nodules palpable. Heart S1 S2, Reg R/R. No M/R G. Skin exam reveals absence of vitiligo or acanthosis nigricans. Neck Other: . Extrem Other: Visual exam of foot performed. No ulcerations or open lesions. No onchomycosis, no callouses.Pulses 2 + distally Sensation intact to monofilament exam. Vibratory sensation sensed is intact with 128 Hz tuning fork Results Reviewed Results Reviewed: Laboratory Last Values Glucose (Clinic) 190 mg/dL (60-115) H 02/04/24 15:28 Assessment & Plan Assessment & Plan (1) Type 2 diabetes mellitus with unspecified complications: Code(s): E11.8 - Type 2 diabetes mellitus with unspecified complications Category: Medical Plan: Type 2 diabetic with last A1c 7% Tresiba 18 units continue Jardiance, pioglitazone, Januvia metformin 500 mg ER twice daily The patient had an opportunity to ask questions regarding treatment plan. The patient expressed understanding and agreement with the above treatment plan. The patient is aware they should contact our office by phone for worsening glucose readings or for any low blood sugars which may warrant a change in diabetes medication. Compliance is encouraged with medications and any followup testing/consults which may have been ordered. Medications: New 2 insulin lispro (Humalog KwikPen (U-100) Insulin) before meals 2 units (0.02 mL) subcut TID 3 mL 6RF 30 days pen needle, diabetic (BD Melody 2nd Gen Pen Needle) As directed qid 200 ea 6RF blood sugar diagnostic (FreeStyle Lite Strips) qid testing 150 ea 5RF lancets (FreeStyle Lancets) 3 times a day testing 100 ea 6RF E11.9 blood sugar diagnostic (FreeStyle Lite Strips) tid testing 100 ea 5RF E 11.9 blood sugar diagnostic (FreeStyle Lite Strips) tid testing 100 ea 5RF E 11.9 insulin glargine (Lantus Solostar U-100 Insulin) 14 units (0.14 mL) subcut QPM 6 mL 6RF 30 days glucose (Dex4 Glucose) every 15 minutes until symptoms of low blood sugar are controlled 16 grams (4 x 4 gram) PO Q15M PRN 30 tabs 3RF hypoglycemia 30 days MDD 16 tablets blood-glucose sensor (FreeStyle Agatha 3 Plus Sensor device) As directed 2 ea 6RF E11.9 blood-glucose meter,continuous (FreeStyle Agatha 3 [place]) As directed 1 ea 1RF E11.9 lancets (FreeStyle Lancets) 4 times a day testing 150 ea 6RF E11.9 blood sugar diagnostic (FreeStyle Lite Strips) tid testing 100 ea 5RF lancets (FreeStyle Lancets) 3 times a day testing 100 ea 6RF E11.9 blood-glucose sensor (FreeStyle Agatha 3 Plus Sensor device) As directed every 15 days 2 ea 6RF E11.9 Discontinued pen needle, diabetic Discontinued Reason: Duplicate Use to inject insulin once a day 100 ea 1RF E11.8 - Type 2 diabetes mellitus with unspecified complications Patient Instructions: The patient was counseled to always carry a source of sugar and on the rule of 15's: Take 3 glucose tablets and repeat again in 15 minutes if blood sugar is not in normal range. Continue to repeat every 15 minutes until blood sugar is normal. The patient was counseled to achieve a target A1C of 7% (154 avg). Fasting blood sugars should be 90-130 in the morning and less than 180 two hours after meals. Reviewed the relationship between poor diabetic control and the development of complications. Check your feet daily looking for any signs of infection, ulceration and seek medical attention if this occurs. Break in shoes gradually and do not wear open-toed shoes or walk barefooted. Coding Level of Care Code Est Pt Level 4 (48438) Complex EM visit Add On G2211 Diagnoses Type 2 diabetes mellitus with unspecified complications E11.8
[2024-02-04 15:25] VITALS: BMI 25.5
[2024-02-04 15:35] LABS: Glucose, Whole Blood 190 mg/dL (60-115)
== END 2024-02-04 16:28 | disposition home or self-care (01) ==
PROVIDERS: PCP Nurse Practitioner Family; Visit Provider Nurse Practitioner Adult Health
DX: E11.8 Type 2 diabetes mellitus with unspecified complications (principal)
CPT/HCPCS: 99214; G2211

== ENCOUNTER → 2024-02-04 15:15 | Outpatient (BNVA) | payer MEDICARE, MEDICAID, SELFPAY | PROVIDERS: PCP Nurse Practitioner Family; Visit Provider Nurse Practitioner Adult Health | DX: E11.9 Type 2 diabetes mellitus without complications (principal); Z79.4 Long term (current) use of insulin; Z79.84 Long term (current) use of oral hypoglycemic drugs | CPT/HCPCS: 82947; 99212 ==

== ENCOUNTER 2024-02-10 15:04 | Outpatient (AMB) | payer MEDICARE, MEDICAID, SELFPAY ==
[2024-02-10 15:45] VITALS: BP 104/70; PULSE 83; BMI 25.1
--- NOTE | 2024-02-10 15:45 | MHC.OFFVIS ---
Vital Signs 02/10/24 15:45 Height 5 ft 8 in Weight 164 lb 14.492 oz BMI 25.1 BP 104/70 Blood Pressure Location Rt brachial Position Sitting Pulse 83 Pulse Source Monitor Intake Visit Reasons: 1 year follow up Synchronous Motor Assembler Required: Yes Synchronous Motor Assembler Language: Beninese Sales Ledger Administrator: Sales Ledger Administrator Present Allergies codeine [CODEINE] Allergy (Unknown, Verified 02/10/24 15:48) TACHYCARDIA Codeine Phosphate Adverse Reaction (Severe, Uncoded 02/10/24 15:48) Unknown glp-1 agonist Adverse Reaction (Severe, Uncoded 02/10/24 15:48) Unknown codeine Adverse Reaction (Unknown, Uncoded 02/10/24 15:48) anaphylaxis Medication List - Last Reconciled 02/10/24 by PATRICIA Martínez atorvastatin 80 mg PO DAILY blood sugar diagnostic As directed blood sugar diagnostic (FreeStyle Lite Strips) tid testing blood-glucose meter,continuous (FreeStyle Agatha 3 [place]) As directed blood-glucose sensor (FreeStyle Agatha 3 Plus Sensor device) As directed every 15 days clonazepam 1 mg PO BEDTIME PRN fluoxetine 40 mg PO DAILY fluticasone propionate 50 mcg/actuation 1 spray intranasal DAILY gabapentin 600 mg PO BEDTIME glucose (Dex4 Glucose) 16 grams (4 x 4 gram) PO Q15M PRN 30 days MDD 16 tablets hydroxyzine HCl 10 mg PO BEDTIME PRN ibuprofen 600 mg PO Q6H PRN insulin glargine (Lantus Solostar U-100 Insulin) 14 units (0.14 mL) subcut QPM 30 days insulin lispro (Humalog KwikPen (U-100) Insulin) 2 units (0.02 mL) subcut TID 30 days ketorolac 10 mg PO Q6H PRN lancets (FreeStyle Lancets) As directed lancets (FreeStyle Lancets) 3 times a day testing losartan 25 mg PO DAILY 30 days omeprazole 40 mg PO DAILY pen needle, diabetic (BD Melody 2nd Gen Pen Needle) As directed qid tadalafil 5 mg PO DAILY 90 days tamsulosin 0.4 mg PO BEDTIME 90 days HPI HPI 1 year follow up : Details: Kate is a 63-year-old male with past medical history of hypertension, hyperlipidemia, diabetes, mild aortic stenosis, CVA who presents for follow-up. Today he reports that he recently had an issue with abdominal pain and was found to have pancreatitis. He says he had a recent scan that does show a mass in his pancreas that could be fluid but they need to rule out cancer. He still has some minor left lateral abdominal discomfort at times. Otherwise he says he has been doing well since his last visit here 02/15/2023. He has not had any new neurological changes. He denies any heart palpitations, chest discomfort, shortness of breath, presyncope, syncope. No PND, orthopnea or edema. His activity level is limited by right knee pain. He tells me that many years ago he was kicked by a horse and has had chronic problems with his knee since then. Compliant with his meds. is present. Certified business project manager used. [facility] Medical History Erectile dysfunction Vitamin D deficiency Multinodular thyroid Other and unspecified hyperlipidemia Type 2 diabetes mellitus with unspecified complications Essential hypertension Aortic valve calcification Surgical History History of esophagogastroduodenoscopy (EGD) H/O colonoscopy Family History Father Stroke Brother Stroke Mother Diabetes Social History Household Members: Spouse Housing: House Alcohol intake: never Patient Tobacco Use Status: Former Tobacco user e-Cigarette/Vaping Use: Never Used service: No Current occupational status: disabled Cognitive needs: No Hearing needs: No Vision needs: Yes Review of Systems Const All systems reviewed & are unremarkable except as noted in HPI and below ENT Denies dizziness Card Denies chest pain, Denies chest pain at rest, Denies chest pain with activity, Denies rapid heart rate, Denies pedal edema, Denies edema, Denies leg edema, Denies lightheadedness, Denies palpitations, Denies dyspnea, Denies dyspnea on exertion and Denies orthopnea Resp Denies cough, Denies dyspnea and Denies dyspnea on exertion GI Details: left lateral abdomen - mildly uncomfortable from recent pancreatitis Denies hematochezia and Denies change in stool character Musc Denies abnormal gait, Denies limited range of motion, Denies muscle cramps, Denies muscle weakness, Denies numbness, Denies radiating pain into limb, Denies stiffness and Denies tingling Neuro Denies abnormal gait, Denies dizziness, Denies numbness and Denies tingling Endo Denies palpitations Physical Exam Vital Signs: Last Vital Signs Pulse 83 02/10/24 15:45 BP 104/70 02/10/24 15:45 BMI result Body Mass Index 25.1 Const General: cooperative, healthy appearing, comfortable and no acute distress Orientation/consciousness: patient oriented x3 Neck Neck: Yes normal visual inspection Resp Effort & Inspection: normal respiratory effort Auscultation: clear to auscultation bilaterally, no rales, no rhonchi and no wheezes Cardio Jugular venous distension: no JVD Rate: regular rate Rhythm: regular rhythm Heart sounds: S1 normal heart sound present, S2 normal heart sound present, Murmur heart sound present (faint systolic murmur) and no rubs Neuro General: patient oriented x3 Extrem General: Yes normal to inspection, No no pedal edema and No calf tenderness Psych Appearance: grossly normal Mental Status: mental status grossly normal Speech and movement: Normal speech and movement present Office Procedures EKG Details: Today read by me, normal sinus rhythm, rate 83, QTC 411 milliseconds [id number], Complete Assessment & Plan Assessment & Plan (1) Aortic stenosis: Code(s): I35.0 - Nonrheumatic aortic (valve) stenosis Category: Medical Plan: Echocardiogram done 01/14/2023 showing EF 55-60%, mild aortic stenosis, possible bicuspid valve. Faint heart murmur noticed on exam, does not sound like severe . He has no cardinal signs of severe . Spent time reviewing the finding of aortic stenosis with him. Will plan for repeat echo prior to next visit in 1 year. (2) Heart palpitations: Code(s): R00.2 - Palpitations Category: Medical Plan: History of CVA. Symptoms of numbness and tingling in his left upper extremity with numbness around his mouth, right facial droop. CT was negative for acute findings. An MRI confirm no acute stroke but did show chronic microvascular ischemic changes and diffuse volume loss. Seen by Neurology and felt to have a micro infarction with recommendations of good blood sugar and cholesterol control.... He has no known history of atrial fibrillation. He did have a 14 day Holter monitor done on 01/14/2023 showing sinus rhythm with average heart rate 81, heart rate range 47 to 151, no rhythm E assists. Pulse is regular on examination today. He denies any heart palpitations. His minor stroke was most likely related to vascular reason. No concern for AF at present. (3) Essential hypertension: Code(s): I10 - Essential (primary) hypertension Category: Medical Plan: Blood pressure was well controlled. No med changes made. (4) Stroke: Code(s): I63.9 - Cerebral infarction, unspecified Category: Medical Qualifiers: CVA mechanism: unspecified Qualified Code(s): I63.9 - Cerebral infarction, unspecified Plan: Most likely vascular. As above Plan Time spent on chart review, documentation, intravenous assessment Orders: Orders CA echo transthoracic complete 01/22/25 I35.0 - Nonrheumatic aortic (valve) stenosis Coding Level of Care Code Est Pt Level 4 (87586) Complex EM visit Add On G2211 Diagnoses Aortic stenosis I35.0 Heart palpitations R00.2 Essential hypertension I10 Cerebrovascular accident (CVA), unspecified mechanism I63.9 CVA mechanism: unspecified CPT Codes EKG - CPT: [id number], Complete ([id number]) Time Spent (min) 30
== END 2024-02-10 16:22 | disposition home or self-care (01) ==
PROVIDERS: PCP Nurse Practitioner Family; Visit Provider Nurse Practitioner Family
DX: R00.2 Palpitations (principal); I35.0 Nonrheumatic aortic (valve) stenosis; I10 Essential (primary) hypertension; I63.9 Cerebral infarction, unspecified
CPT/HCPCS: 93010; 99214; G2211

== ENCOUNTER → 2024-02-10 15:04 | Outpatient (BNVA) | payer MEDICARE, MEDICAID, SELFPAY | PROVIDERS: PCP Nurse Practitioner Family; Visit Provider Nurse Practitioner Family | DX: I10 Essential (primary) hypertension (principal); I35.0 Nonrheumatic aortic (valve) stenosis; R00.2 Palpitations; Z86.73 Personal history of transient ischemic attack (TIA), and cerebral infarction without residual deficits | CPT/HCPCS: 93005; 99212 ==

== ENCOUNTER 2024-02-18 08:49 | Outpatient (REF) | payer MEDICARE, MEDICAID, SELFPAY ==
[2024-02-18] MEDS: gadobutroL 7.5 ML VIAL IVPUSH (10:05)
== END 2024-02-18 08:50 | disposition home or self-care (01) ==
LOC: HO.MRI 08:49
PROVIDERS: PCP Nurse Practitioner Family; Visit Provider Nurse Practitioner Family
DX: K86.9 Disease of pancreas, unspecified (principal)
CPT/HCPCS: 74183; 82947; 99212; A9585

== ENCOUNTER 2024-02-18 14:41 | Outpatient (AMB) | payer MEDICARE, MEDICAID, SELFPAY ==
[2024-02-18 15:01] VITALS: BP 116/74; PULSE 79; BMI 25.5
--- NOTE | 2024-02-18 15:01 | A.OFFVIS_ITS ---
Vital Signs 02/18/24 15:01 Height 5 ft 8 in Weight 167 lb 8.821 oz BMI 25.5 BP 116/74 Blood Pressure Location Rt brachial Position Sitting Pulse 79 Pulse Source Pulse Oximeter Intake Visit Reasons: T2DM/CONF Intake Note: Patient presents today for a follow-up for Type 2 Diabetes Mellitus: Last Diabetic eye exam was on: DUE, has an appointment in February Last Podiatry exam was on: Does not see a Occupational Safety And Health Manager Most recent HbA1c: 8.2%, 01/24/2024 Random Glucose- 188 mg/dL, Today Glue Size Machine Operator Required: Yes Glue Size Machine Operator Services: Glue Size Machine Operator Offered & Declined Accompanied by: Significant Other Allergies codeine [CODEINE] Allergy (Unknown, Verified 02/18/24 15:06) TACHYCARDIA Codeine Phosphate Adverse Reaction (Severe, Uncoded 02/18/24 15:06) Unknown glp-1 agonist Adverse Reaction (Severe, Uncoded 02/18/24 15:06) Unknown codeine Adverse Reaction (Unknown, Uncoded 02/18/24 15:06) anaphylaxis HPI Comments Details: This is a 63-year-old male with a past medical history of pancreatitis, pancreatic mass, multinodular thyroid, vitamin-D deficiency, hypertension, aortic valve stenosis and type 2 diabetes presenting for diabetic management. Patient reports he was not able to get the Agatha 3 sensor and reader is yet. Prior authorization required further documentation. This will be processed by our office. He forgot his glucometer today. A.m. fasting readings Reported by patient are between 170-200. Current medication regimen: Lantus 14 units nightly and Humalog 2 units 3 times a day before meals. Trulicity discontinued due to pancreatitis. Metformin discontinued due to GI side effects in the past. Patient was previously on Jardiance which worked very well, and he did not have side effects, but his insurance had stopped covering it at 1 point. Denies history of infections. Patient is not having any juice or soda. He does not smoke. He does not drink alcohol. He has a lot of salad and some rice in his diet. Avoids pasta. Complications: Diabetic eye exam is scheduled this February. No known retinopathy. Patient has nephropathy ( microalbuminuria). Patient has a history of CVA. ROS: Constitutional: No unexplained weight loss, fever, chills. Respiratory: No shortness of breath Cardiovascular: No chest pain Genitourinary: No dysuria, hematuria, urinary frequency. Neurologic: No headache, dizziness, syncope Skin: No open wounds Endocrine: No cold or heat intolerance. No polyuria or polydipsia. Psychiatric: No depression or anxiety. No SI/HI. Physical exam: Constitutional: Alert, in no distress. Head: Normocephalic. Eyes: Pupils are equal, round and reactive to light. Extraocular muscles intact. Neck: Supple, Full range of motion. No lymphadenopathy. No palpable thyroid masses. Respiratory: Clear to auscultation. Cardiovascular: S1 S2 regular. I/ systolic murmur. [facility] Medical History (Updated 02/18/24 @ 16:29 by IDANIA Boothe) Microalbuminuric diabetic nephropathy Type II diabetes with assisted use of insulin Erectile dysfunction Vitamin D deficiency Multinodular thyroid Other and unspecified hyperlipidemia Type 2 diabetes mellitus with unspecified complications Essential hypertension Aortic valve calcification Surgical History History of esophagogastroduodenoscopy (EGD) H/O colonoscopy Family History Father Stroke Brother Stroke Mother Diabetes Social History Household Members: Spouse Housing: House Alcohol intake: never Patient Tobacco Use Status: Former Tobacco user e-Cigarette/Vaping Use: Never Used service: No Current occupational status: disabled Cognitive needs: No Hearing needs: No Vision needs: Yes Physical Exam Vital Signs: Last Vital Signs Pulse 79 02/18/24 15:01 BP 116/74 02/18/24 15:01 BMI result Body Mass Index 25.5 Results Reviewed Results Reviewed: Laboratory Last Values Glucose (Clinic) 188 mg/dL (60-115) H 02/18/24 15:05 Laboratory Tests 02/02/24 17:25 Creatinine 0.95 Estim Creat Clear Calc 78.0 Estimated GFR > 60 Laboratory Tests 08/09/23 08:11 Urine Creatinine 104.88 Urine Microalbumin 54.0 Microalb/Creat Ratio 51.4 H Assessment & Plan Assessment & Plan (1) Type II diabetes with assisted use of insulin: Code(s): E11.9 - Type 2 diabetes mellitus without complications; Z79.4 - correction (current) use of insulin Category: Medical Qualifiers: Diabetes mellitus complication status: with kidney complications Diabetes mellitus complication detail: with nephropathy Qualified Code(s): E11.21 - Type 2 diabetes mellitus with diabetic nephropathy; Z79.4 - correction (current) use of insulin (2) Microalbuminuric diabetic nephropathy: Code(s): E11.21 - Type 2 diabetes mellitus with diabetic nephropathy Category: Medical Plan In summary this is a 63-year-old male with a past medical history of uncontrolled type 2 diabetes with micro and macrovascular complications. Patient will start Jardiance 10 mg daily. This may require prior authorization. Patient intolerant to metformin and GLP 1. Continue Lantus 14 units nightly. Continue Humalog 2 units 3 times a day before meals for now. We will possibly discontinue this once he is on Jardiance. Prior authorization will be processed for [employer] 3. Reminded to bring glucometer to all appointments. We discussed the complications of uncontrolled diabetes. Reviewed treatment of hypo and hyperglycemia. He has a prescription for glucose tablets. Follow up in 4 weeks for type 2 diabetes. Orders: Orders Creatinine Today E11.8 - Type 2 diabetes mellitus with unspecified complicati ons Medications: New empagliflozin (Jardiance) 10 mg PO QAM 30 tabs 1RF Patient Instructions: Inicie Jardiance con 10 mg al d?a. Contin?e con Lantus 14 unidades todas las noches. Contin?e con Humalog 2 unidades christina veces al d?a antes de las comidas por ahora. Es posible que podamos suspender dale medicamento wilber vez que est? tomando Jardiance. Acude al laboratorio 10 d?as despu?s de iniciar Jardiance. Coding Level of Care Code Est Pt Level 4 (13944) Complex EM visit Add On G2211 Diagnoses Type 2 diabetes mellitus with diabetic nephropathy, with long-term current use of insulin E11.21; Z79.4 Diabetes mellitus complication status: with kidney complications Diabetes mellitus complication detail: with nephropathy Microalbuminuric diabetic nephropathy E11.21
[2024-02-18 15:11] LABS: Glucose, Whole Blood 188 mg/dL (60-115)
== END 2024-02-18 15:54 | disposition home or self-care (01) ==
PROVIDERS: PCP Nurse Practitioner Family; Visit Provider Physician Assistant Medical
DX: E11.21 Type 2 diabetes mellitus with diabetic nephropathy (principal); Z79.4 Long term (current) use of insulin

== ENCOUNTER 2024-02-22 10:27 | Outpatient (AMB) | payer MEDICARE, MEDICAID, SELFPAY ==
--- NOTE | 2024-02-22 10:43 | A.OFFVIS_ITS ---
VS Expanded 02/22/24 10:45 02/23/24 09:26 Height 5 ft 8 in 5 ft 8 in Weight 168 lb 10.458 oz 168 lb BMI 25.6 25.5 Intake Visit Reasons: DM Allergies codeine [CODEINE] Allergy (Unknown, Verified 02/18/24 15:06) TACHYCARDIA Codeine Phosphate Adverse Reaction (Severe, Uncoded 02/18/24 15:06) Unknown glp-1 agonist Adverse Reaction (Severe, Uncoded 02/18/24 15:06) Unknown codeine Adverse Reaction (Unknown, Uncoded 02/18/24 15:06) anaphylaxis Nutrition Presentation Details: Pt presents for MNT for T2DM Pt presents with during this appointment challenges: tries to reduce meal portions but finds himself increasing on snacks food frequency fish: 2 x/wk fruits 3-4+/d dairy : glass milk iwth every meal starches > 25 vegetables: 2x/wk physical activity : walks the dog 2x/d (likes biking in summer) etoh/smoking -- denies has questions regarding sugas/carbs, reading labels BS Monitoring Most Recent Diabetes Results: Creatinine 0.95 mg/dL (0.5-1.4) 02/02/24 Blood Urea Nitrogen 18 mg/dL (9-16) H 02/02/24 Sodium 137 mmol/L (135-145) 02/02/24 Potassium 4.7 mmol/L (3.3-5.1) 02/02/24 Chloride 102 mmol/L (96-108) 02/02/24 Carbon Dioxide 24 mmol/L (22-29) 02/02/24 Calcium 9.6 mg/dL (8.4-10.2) 02/02/24 AST 19 U/L (5-37) 02/02/24 ALT 28 U/L (0-40) 02/02/24 Total Protein 7.5 g/dL (6.5-8.0) 02/02/24 Albumin 4.1 g/dL (3.5-5.0) 02/02/24 KZK-Rzxufpv-Uh.Jeor Equation Height: 5 ft 8 in Weight: 168 lb Resting Metabolic Rate: 1540.73 Calculated Activity Level: Mild Activity Calories Needed to Maintain Weight: 2118.50 Diagnosis Nutrition problem #1: food nutri know defi As related to (etiology) #1: diagnosis As evidenced by (sign/symptom) #1: knowledge deficit of diet [facility] Medical History (Updated 02/18/24 @ 16:29 by IDANIA Boothe) Microalbuminuric diabetic nephropathy Type II diabetes with detention use of insulin Erectile dysfunction Vitamin D deficiency Multinodular thyroid Other and unspecified hyperlipidemia Type 2 diabetes mellitus with unspecified complications Essential hypertension Aortic valve calcification Surgical History History of esophagogastroduodenoscopy (EGD) H/O colonoscopy Family History Father Stroke Brother Stroke Mother Diabetes Social History Household Members: Spouse Housing: House Alcohol intake: never Patient Tobacco Use Status: Former Tobacco user e-Cigarette/Vaping Use: Never Used service: No Current occupational status: disabled Cognitive needs: No Hearing needs: No Vision needs: Yes Assessment & Plan Assessment & Plan (1) Type II diabetes with detention use of insulin: Code(s): E11.9 - Type 2 diabetes mellitus without complications; Z79.4 - termite helper (current) use of insulin Category: Medical Qualifiers: Diabetes mellitus complication detail: with nephropathy Diabetes mellitus complication status: with kidney complications Qualified Code(s): E11.21 - Type 2 diabetes mellitus with diabetic nephropathy; Z79.4 - termite helper (current) use of insulin Plan: Wt: 76 Kg ( 02/19 ) Est kcal needs as per MSJ: 2200 (40% carb, 30% protein/fat) Est fluid needs as per 25-30 ml/d: 2300 Est prot per day as per 1 g/kg bw: 76 Recommend fiber intake : 8-10 g per day and gradually increase to 25-28 g per day for women and 35-38 g for men or as tolerated Recommend sodium intake per day : less than 2300 mg Educated patient on: ( R = reviewed V = verbalizes understanding N/R = needs review N/A = not applicable * Food sources of carbohydrate, adequate serving sizes and its role in various health conditions: R v * Differences between complex carbohydrates a simple carbohydrates, role of fiber in diet: R * Lean protein sources of foods: R * Differences between types of fats and role in diet (mono on saturated fat fatty acids, saturated fatty acids, trans fats): R * Food sources of sodium in salt and healthy modifications for heart health in kidney health: R V R/V * Vitamins and minerals: R V N/R * Healthy plate method concept: R V N/R * Physical activity: Benefits a precaution: R V N/R * Hypoglycemia protocol (rule of 15): R V N/R * Dietary prevention of Hyperglycemia: R Patient Instructions: Include nonstarchy vegetables in the rice/potato mix adding fiber to the foods for satiety Choose a fruit and lean protein as snack walk 30 minutes, at least 3 times a week Coding Level of Care Code Nutr Indiv Intake (86823) Diagnoses Type 2 diabetes mellitus with diabetic nephropathy, with long-term current use of insulin E11.21; Z79.4 Diabetes mellitus complication detail: with nephropathy Diabetes mellitus complication status: with kidney complications Time Spent (min) 30
[2024-02-22 10:45] VITALS: BMI 25.6
[2024-02-23 12:50] VITALS: BMI 25.5
== END 2024-02-22 11:46 | disposition home or self-care (01) ==
PROVIDERS: PCP Nurse Practitioner Family; Visit Provider Dietitian, Registered
DX: E11.21 Type 2 diabetes mellitus with diabetic nephropathy (principal); Z79.4 Long term (current) use of insulin

== ENCOUNTER → 2024-02-22 10:27 | Outpatient (BNVA) | payer MEDICARE, MEDICAID, SELFPAY | PROVIDERS: PCP Nurse Practitioner Family; Visit Provider Dietitian, Registered | DX: E11.21 Type 2 diabetes mellitus with diabetic nephropathy (principal); Z71.3 Dietary counseling and surveillance; Z79.4 Long term (current) use of insulin | CPT/HCPCS: 97802 ==

== ENCOUNTER 2024-03-01 14:51 | Outpatient (AMB) | payer MEDICARE, MEDICAID, SELFPAY ==
--- NOTE | 2024-03-01 14:52 | A.OFFVIS_ITS ---
Intake Intake Visit Reasons: DM-confirmed Chicken Hanger Required: Yes Chicken Hanger Language: Architectural Draftsman Name: Sunday [facility] Information Interpreted: non-clinical & clinical Accompanied by: Self / Same As Patient Allergies codeine [CODEINE] Allergy (Unknown, Verified 02/18/24 15:06) TACHYCARDIA Codeine Phosphate Adverse Reaction (Severe, Uncoded 02/18/24 15:06) Unknown glp-1 agonist Adverse Reaction (Severe, Uncoded 02/18/24 15:06) Unknown codeine Adverse Reaction (Unknown, Uncoded 02/18/24 15:06) anaphylaxis HPI Comprehensive Diabetes Asmnt Most Recent Diabetes Results: Creatinine 0.95 mg/dL (0.5-1.4) 02/02/24 Blood Urea Nitrogen 18 mg/dL (9-16) H 02/02/24 Sodium 137 mmol/L (135-145) 02/02/24 Potassium 4.7 mmol/L (3.3-5.1) 02/02/24 Chloride 102 mmol/L (96-108) 02/02/24 Carbon Dioxide 24 mmol/L (22-29) 02/02/24 Calcium 9.6 mg/dL (8.4-10.2) 02/02/24 AST 19 U/L (5-37) 02/02/24 ALT 28 U/L (0-40) 02/02/24 Total Protein 7.5 g/dL (6.5-8.0) 02/02/24 Albumin 4.1 g/dL (3.5-5.0) 02/02/24 [facility] Medical History (Updated 02/18/24 @ 16:29 by IDANIA Boothe) Microalbuminuric diabetic nephropathy Type II diabetes with longterm use of insulin Erectile dysfunction Vitamin D deficiency Multinodular thyroid Other and unspecified hyperlipidemia Type 2 diabetes mellitus with unspecified complications Essential hypertension Aortic valve calcification Surgical History History of esophagogastroduodenoscopy (EGD) H/O colonoscopy Family History Father Stroke Brother Stroke Mother Diabetes Social History Household Members: Spouse Housing: House Alcohol intake: never Patient Tobacco Use Status: Former Tobacco user e-Cigarette/Vaping Use: Never Used service: No Current occupational status: disabled Cognitive needs: No Hearing needs: No Vision needs: Yes Assessment & Plan Assessment & Plan (1) Type 2 diabetes mellitus with unspecified complications: Code(s): E11.8 - Type 2 diabetes mellitus with unspecified complications Plan: Patient at visit to set up an insert Agatha 3 sensor with [place] Instructed patient sensors water proof you can shower, or swim do not submerge sensor in water for over 30 minutes Is sensor falls off cannot put back in you need to replace sensor, customer service number given to patient for sensor replacement Sensor placed on the Back of L arm Patient left visit with sensor in warmup Reviewed how to interpret trend arrows Reminded patient that to check finger sticks if symptoms do not match sensor reading. Discussed lag time between finger stick and sensor data.? Instructed patient she should always keep blood glucometer for backup testing if needed Reviewed delay of CGM from fingersticks Reminded pt that if symptoms do not match sensor still needs to check fingersticks. Portions of this note were created using voice recognition software, please excuse any words or phrases that may have been misinterpreted. Patient Instructions: Instrucciones para el paciente: CGM proporciona informaci?n sobre el control de la glucosa en douglas a lo kailey del d?a, incluidas la hiperglucemia y la hipoglucemia. Contin?e controlando la glucosa en douglas seg?n las instrucciones. Siga las pautas de nutrici?n proporcionadas. Informe cualquier molestia de inmediato al proveedor de atenci?n m?dica. Mantente juwan hidratado. Puede ba?arse, ducharse, nadar y hacer ejercicio mientras usa el sensor de glucosa. No sumerja el sensor de glucosa en agua magan m?s de 30 minutos. Retire el sensor para wilber resonancia magn?janell o wilber tomograf?a computarizada. Evite la m?quina de mckenna X en los aeropuertos: retire el sensor o solicite la varita Coding Level of Care Code Est Pt Level 1 (58732) Diagnoses Type 2 diabetes mellitus with unspecified complications E11.8
== END 2024-03-01 15:17 | disposition home or self-care (01) ==
PROVIDERS: PCP Nurse Practitioner Family; Visit Provider Registered Nurse Diabetes Educator
DX: E11.8 Type 2 diabetes mellitus with unspecified complications (principal)

== ENCOUNTER → 2024-03-01 14:51 | Outpatient (BNVA) | payer MEDICARE, MEDICAID, SELFPAY | PROVIDERS: PCP Nurse Practitioner Family; Visit Provider Registered Nurse Diabetes Educator | DX: E11.21 Type 2 diabetes mellitus with diabetic nephropathy (principal); R80.9 Proteinuria, unspecified; Z79.4 Long term (current) use of insulin | CPT/HCPCS: 99211 ==

== ENCOUNTER 2024-03-16 10:09 | Day surgery (SDC) | payer MEDICARE, MEDICAID, SELFPAY ==
[2024-03-14 13:23] VITALS: BMI 25.1
--- NOTE | 2024-03-16 10:40 | MHC.SHP ---
Pre-Procedural Eval Section A - 24 Hr Update-Section A only Date of Service: 03/16/24 Section B - Complete if H&P > 30 days Chief Complaint: Personal history of colonic polyps Details of Present Illness: Erectile dysfunction Vitamin D deficiency Multinodular thyroid Other and unspecified hyperlipidemia Type 2 diabetes mellitus with unspecified complications Essential hypertension Aortic valve calcification Surgical History History of esophagogastroduodenoscopy (EGD) H/O colonoscopy Present Medications: see Short Stay Collaborative assessment Allergies: Allergies Allergy/AdvReac Type Severity Reaction Status Date / Time codeine [CODEINE] Allergy Intermediate TACHYCARDIA Verified 03/14/24 13:12 glp-1 agonist Allergy Unknown Unknown Uncoded 03/14/24 13:12 Review of Systems Review of Systems Comment: Ten point ROS negative Exam Exam Comment: Gen appear: No acute distress HEENT: no icterus Chest: No overt resp distress Abd: soft, nontender, nondistended Psych: Stable affect, answering questions appropriately Neuro: A/Ox3 noted to move all extremities spontaneously Ext: no peripheral edema Plan Diagnosis/Plan: Unchanged I have reviewed the history and physical and performed a pertinent physical examination on my patient. No changes have occurred unless specified. Time Spent With Patient Time: Total time managing care of this patient today ____ minutes.
--- NOTE | 2024-03-16 11:15 | HO.ANESPROP2 ---
Documented by User: Diane Hale NP 03/15/24 08:32 HPI - Anesthesia Eval Consult details Narrative: 63yo M for Colonoscopy Follows [facility] [place] cardiology for mild , htn/hld, hx CVA. Stable at yearly office visit 01/2024 Anesthesia Pre-Procedure Meds Is the patient on any of the following meds?: GLP1/DPP4 and SGLT2 Inhib PMFSH Active Problems Active Problems: All Active Problems Pancreatitis (Acute) Respiratory infection (Acute) Urinary hesitancy (Acute) Weak urinary stream (Acute) Screen for STD (sexually transmitted disease) (Acute) Screening PSA (prostate specific antigen) (Acute) Elevated alkaline phosphatase level (Acute) Elevated liver enzymes (Acute) Screening for colon cancer (Acute) Constipation (Acute) Facial asymmetry (Acute) Stroke (Acute) Personal history of colonic polyps (Acute) GERD (gastroesophageal reflux disease) (Acute) Abdominal pain (Acute) Aortic stenosis (Acute) Erectile dysfunction associated with type 2 diabetes mellitus (Acute) Osteoarthritis of right knee (Acute) Shortness of breath on exertion (Acute) Type 2 diabetes mellitus with unspecified complications (Acute) Heart palpitations (Acute) Microalbuminuric diabetic nephropathy (Acute) 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 II diabetes with remote computer terminal operator use of insulin (Acute) Vitamin D deficiency (Acute) Multinodular thyroid (Acute) Essential hypertension (Acute) Aortic valve calcification (Acute) Past Medical History Medical History (Updated 03/14/24 @ 13:19 by Suki Shelton RN) Palpitations Pancreatitis Arthritis GERD (gastroesophageal reflux disease) CVA (cerebral vascular accident) Microalbuminuric diabetic nephropathy Type II diabetes with remote computer terminal operator use of insulin Erectile dysfunction Vitamin D deficiency Multinodular thyroid Other and unspecified hyperlipidemia Essential hypertension Aortic valve calcification Family History Family History Father Stroke Brother Stroke Mother Diabetes Surgical History Surgical History History of esophagogastroduodenoscopy (EGD) H/O colonoscopy Social History Social History Household Members: Spouse Housing: House Alcohol intake: never Patient Tobacco Use Status: Former Tobacco user e-Cigarette/Vaping Use: Never Used service: No Current occupational status: disabled Cognitive needs: No Hearing needs: No Vision needs: Yes Meds Allergies Allergy/AdvReac Type Severity Reaction Status Date / Time codeine [CODEINE] Allergy Intermediate TACHYCARDIA Verified 03/16/24 11:04 Home Medications ?Medication ?Instructions ?Recorded ?Confirmed ?Last Taken ?Type fluoxetine 40 mg capsule 40 mg PO DAILY 03/28/20 03/16/24 Unknown History hydroxyzine HCl 10 mg tablet 10 mg PO BEDTIME PRN Anxiety 03/28/20 03/16/24 Unknown History clonazepam 1 mg tablet 1 mg PO BEDTIME PRN Anxiety 06/17/21 03/16/24 Unknown History fluticasone propionate 50 1 spray intranasal DAILY 01/18/23 03/16/24 Unknown History mcg/actuation nasal spray,suspension gabapentin 600 mg tablet 600 mg PO BEDTIME 01/18/23 03/16/24 Unknown History Exam Height,Weight and Vital Signs: Height 5 ft 8 in Weight 74.843 kg Pertinent Lab Results Pertinent Lab Results: Laboratory Tests 02/02/24 17:25 WBC 6.7 Hgb 15.6 Hct 46.3 Plt Count 186 Sodium 137 Potassium 4.7 Chloride 102 Carbon Dioxide 24 BUN 18 H Creatinine 0.95 Narrative Narrative: EKG 01/2024 Details: Today read by me, normal sinus rhythm, rate 83, QTC 411 milliseconds ECHO 12/2022 Conclusions: - The left ventricular systolic function is normal. The visually estimated ejection fraction is between 55-60%. - There is mild aortic valve stenosis. Possible bicuspid morphology. Assessment and Plan Assessment Anesthesia Assessment: Chart Reviewed Documented by User: Michaela Daily DO 03/16/24 11:17 HPI - Anesthesia Eval Anesthesia Pre-Procedure Meds Is the patient on any of the following meds?: GLP1/DPP4 and SGLT2 Inhib PMFSH Past Medical History Medical History (Updated 03/14/24 @ 13:19 by Suki Shelton RN) Palpitations Pancreatitis Arthritis GERD (gastroesophageal reflux disease) CVA (cerebral vascular accident) Microalbuminuric diabetic nephropathy Type II diabetes with remote computer terminal operator use of insulin Erectile dysfunction Vitamin D deficiency Multinodular thyroid Other and unspecified hyperlipidemia Essential hypertension Aortic valve calcification Family History Family History Father Stroke Brother Stroke Mother Diabetes Family history of problems with anesthesia: No Surgical History Surgical History History of esophagogastroduodenoscopy (EGD) H/O colonoscopy History of Problems with Anesthesia: No Social History Social History Household Members: Spouse Housing: House Alcohol intake: never Patient Tobacco Use Status: Former Tobacco user e-Cigarette/Vaping Use: Never Used service: No Current occupational status: disabled Cognitive needs: No Hearing needs: No Vision needs: Yes Meds Allergies Allergy/AdvReac Type Severity Reaction Status Date / Time codeine [CODEINE] Allergy Intermediate TACHYCARDIA Verified 03/16/24 11:04 Home Medications ?Medication ?Instructions ?Recorded ?Confirmed ?Last Taken ?Type fluoxetine 40 mg capsule 40 mg PO DAILY 03/28/20 03/16/24 Unknown History hydroxyzine HCl 10 mg tablet 10 mg PO BEDTIME PRN Anxiety 03/28/20 03/16/24 Unknown History clonazepam 1 mg tablet 1 mg PO BEDTIME PRN Anxiety 06/17/21 03/16/24 Unknown History fluticasone propionate 50 1 spray intranasal DAILY 01/18/23 03/16/24 Unknown History mcg/actuation nasal spray,suspension gabapentin 600 mg tablet 600 mg PO BEDTIME 01/18/23 03/16/24 Unknown History Exam Exam Date and Time: 03/16/24 1115 Airway Mallampati Class: III TM Dist: >3cm Neck ROM: Full Loose/Missing/Broken Teeth: No (patient denies any loose or broken teeth) Heart: S1S2 Lungs: CTAB Assessment and Plan Assessment Anesthesia Assessment: Anesthesia Plan Discussed and Chart Reviewed Final Anesthetic Review Family History of Problems with Anesthesia: No History of Problems with Anesthesia: No NPO: Yes ASA Class: III Final Preanesthetic Review: No Changes in Pt Med Stat, Meds/Allgs Chart Reviewed, Consent Obtained/Reviewed and Anes Risks/Benef Reviewed Patient Risk: Intermediate Procedure Risk: Low Anesthetic Plan Anesthetic Plan: MAC: and Agree w/ Assess. and Plan Disposition: Standard PACU
[2024-03-16 11:21] VITALS: BP 153/92; PULSE 70; RESP 16; TEMP 36.8; O2SAT 98
[2024-03-16 11:54] VITALS: BP 110/74; PULSE 74; RESP 12; TEMP 36.1; O2SAT 97
--- NOTE | 2024-03-16 11:58 | P.OPN-COLO_ITS ---
Colonoscopy Operative Note Operative Note Date of Service: 03/16/24 Narrative: Procedure: Colonoscopy Indication: Personal history of polyps Endoscopist: Aminata Martin MD Anesthesia Provider: Miguel Ángel Fair CRNA Anesthesia type: MAC Instrument: Olympus [id number]-H190L Consent: Indication, risks vs benefits, and alternatives were discussed with the patient who gave written informed consent to proceed. EKG, pulse, pulse oximetry and blood pressure were monitored throughout the procedure. Please see anesthesia flowsheet. Procedure: The patient was brought to the procedure room and placed in the left lateral decubitus position. IV medications were administered by the anesthesia provider in attendance. A digital rectal exam was performed which was abnormal for external hemorrhoids. A distal attachment cap was affixed to the tip of the colonoscope which was then inserted through the anus and advanced through the colon to the cecum at 80 cm,and terminal ileum. Appendiceal orifice and ileocecal valve were identified. Mucosa was carefully examined under high definition white light as the instrument was slowly withdrawn in a retrograde panoramic fashion. Retroflexion was performed in rectum. The procedure was not difficult. There were no immediate obvious complications. The quality of the prep was BBPS: 2+3+2 = adequate Withdrawal time 12 minutes. Limitations: No limitations Findings: Mucosa: Normal to cecum and terminal ileum. Protruding lesions: * 1 sessile polyp of size 2 mm in transverse colon. Cold forceps polypectomy was performed. The polyp was completely removed and retrieved. * Medium internal hemorrhoids without stigmata of recent bleeding. Excavated lesions: * Moderate diverticulosis of left sided colon. Impression: 1. Normal colon mucosa 2. Total of 1 polyp removed 3. Diverticulosis 4. Internal hemorrhoids Recommendations: - Follow path results. - Repeat colonoscopy in 5-7 years depending on the results of the polyp.
[2024-03-16 12:09] VITALS: BP 106/73; PULSE 79; RESP 16; TEMP 36.2; O2SAT 99
== END 2024-03-16 12:42 | disposition home or self-care (01) ==
PROVIDERS: PCP Nurse Practitioner Family; Visit Provider Internal Medicine
PROC: 0DJD8ZZ Inspection of Lower Intestinal Tract, Via Natural or Artificial Opening Endoscopic (ICD-10-PCS; CPT 45378; principal; 2024-03-16 13:30)
DX: Z12.11 Encounter for screening for malignant neoplasm of colon (principal); Z86.0101 Personal history of adenomatous and serrated colon polyps; K63.5 Polyp of colon; K57.30 Diverticulosis of large intestine without perforation or abscess without bleeding; I10 Essential (primary) hypertension; I35.0 Nonrheumatic aortic (valve) stenosis; E11.9 Type 2 diabetes mellitus without complications; E04.2 Nontoxic multinodular goiter; E55.9 Vitamin D deficiency, unspecified; E78.5 Hyperlipidemia, unspecified; Z79.899 Other long term (current) drug therapy; Z88.5 Allergy status to narcotic agent; Z86.73 Personal history of transient ischemic attack (TIA), and cerebral infarction without residual deficits; Z87.891 Personal history of nicotine dependence
CPT/HCPCS: 45380; 88305; J2003; J2704

== ENCOUNTER → 2024-03-16 10:09 | Outpatient (BNV) | payer MEDICARE, MEDICAID, SELFPAY | PROVIDERS: PCP Nurse Practitioner Family; Visit Provider Internal Medicine | DX: Z12.11 Encounter for screening for malignant neoplasm of colon (principal); Z86.0100 Personal history of colon polyps, unspecified; K63.5 Polyp of colon; K57.30 Diverticulosis of large intestine without perforation or abscess without bleeding | CPT/HCPCS: 45380 ==

== ENCOUNTER 2024-03-21 10:15 | Outpatient (REF) | payer MEDICARE, MEDICAID, SELFPAY ==
[2024-03-21 10:28] LABS: MANUAL DIFF FLAG NO
[2024-03-21 11:00] LABS: Appearance Urine Clear; Color Urine Yellow; Glucose Urine UA >=1000 mg/dL (Negative); Leukocyte Esterase Urine Negative (Negative); Nitrite Urine Negative (Negative); Specific Gravity - Urine >= 1.030 (1.005-1.025); UMIC TRIGGER UACC YES; Urine Blood Negative (Negative); Urine Ketones Negative (Negative); Urine Protein 30 (1+) mg/dL (Neg-Trace)
[2024-03-21 11:07] LABS: Bacteria Urine None Seen (None Seen); Hyaline Casts Urine 0-2 /LPF (0-2); RBC Urine 0-2 /HPF (0-2); Squamous Epithelial Cell Urine 0-2 /HPF (0-2); WBC Urine 0-5 /HPF (0-5)
[2024-03-21 11:37] LABS: Basophils Percent Auto 0.4 % (0-2); Eosinophils Absolute Auto 0.2 X10*3/uL (0.0-0.4); Eosinophils Percent Auto 3.5 % (0-4); Hematocrit 49.6 % (42.0-52.0); Hemoglobin 17.2 g/dl (14.0-18.0); Imm Gran Abs Auto 0.01 X10*3/uL (0.00-0.03); Imm Gran Pct Auto 0.2 % (0.0-0.4); Lymphocytes Absolute Auto 1.7 X10*3/uL (1.2-4.9); Lymphocytes Percent Auto 33.1 % (20-40); Mean Corpuscular HGB Conc 34.7 g/dl (31.0-36.0); Mean Corpuscular Hemoglobin 28.1 pg (27.0-33.0); Mean Corpuscular Volume 80.9 fL (80.0-98.0); Mean Platelet Volume 9.4 fL (9.4-12.4); Monocytes Absolute Auto 0.4 X10*3/uL (0.1-1.2); Monocytes Percent Auto 6.9 % (2-11); Neutrophils Absolute Auto 2.8 x10*3/uL (2.0-8.3); Neutrophils Percent Auto 55.9 % (45-73); Platelet Count 244 X10*3/uL (160-400); Red Blood Count 6.13 X10*6/uL (4.60-5.80); Red Cell Distribution Width 12.6 % (11.0-16.0); White Blood Count 5.1 X10*3/uL (4.8-10.8)
[2024-03-21 12:13] LABS: Alanine Aminotransferase 30 U/L (0-40); Albumin Level 4.3 g/dL (3.5-5.0); Alkaline Phosphatase 88 U/L (39-117); Anion Gap 11 (12-20); Aspartate Amino Transferase 22 U/L (5-37); Bilirubin Total 0.5 mg/dL (0.0-1.0); Blood Urea Nitrogen 18 mg/dL (9-16); Calcium 9.5 mg/dL (8.4-10.2); Carbon Dioxide 28 mmol/L (22-29); Chloride 103 mmol/L (96-108); Cholesterol 264 mg/dL (<200); Estimated Glomerular Filt Rate > 60; Glucose Random 138 mg/dL (60-115); HDL Cholesterol 47 mg/dL (>40); LDL Cholesterol Calculated 190 mg/dL (<100); Lipase 24 U/L (8-78); Potassium 3.5 mmol/L (3.3-5.1); Sodium 138 mmol/L (135-145); Triglycerides 136 mg/dL (<150)
[2024-03-21 12:50] LABS: TSH reflex Free T4 1.34 uIU/mL (0.32-4.0)
[2024-03-21 13:12] LABS: CT PCR NOT DETECTED (Not Detect.); NG PCR NOT DETECTED (Not Detect.)
== END 2024-03-21 10:16 | disposition home or self-care (01) ==
LOC: HO.LAB 10:15
PROVIDERS: PCP Nurse Practitioner Family; Visit Provider Physician Assistant Medical
DX: E11.21 Type 2 diabetes mellitus with diabetic nephropathy (principal); Z79.4 Long term (current) use of insulin; Z11.3 Encounter for screening for infections with a predominantly sexual mode of transmission; E11.8 Type 2 diabetes mellitus with unspecified complications; K85.90 Acute pancreatitis without necrosis or infection, unspecified
CPT/HCPCS: 80053; 80061; 81001; 81003; 82947; 83690; 84443; 85025; 87491; 87591; 99212

== ENCOUNTER 2024-03-21 10:40 | Outpatient (AMB) | payer MEDICARE, MEDICAID, SELFPAY ==
--- NOTE | 2024-03-21 10:44 | MHC.OFFVIS ---
Vital Signs 03/21/24 10:46 Height 5 ft 8 in Weight 172 lb 2.896 oz BMI 26.2 BP 138/84 Blood Pressure Location Rt brachial Position Sitting Pulse 86 Pulse Source Pulse Oximeter Intake Visit Reasons: T2DM Intake Note: Patient present today to follow up on Type 2 Diabetes Mellitus. Last Diabetic Eye exam: has an appt June 2024 Last Podiatry Visit: Does not see a Office Mover Random Glucose: 147 mg/dl HgA1C: 8.2% 01/23/25 Assistant Dean Of Students Required: Yes Assistant Dean Of Students Language: Vocational Instructor Services: Assistant Dean Of Students Present Assistant Dean Of Students Name: Juan R Information Interpreted: non-clinical & clinical Accompanied by: Self / Same As Patient Allergies codeine [CODEINE] Allergy (Intermediate, Verified 03/21/24 10:47) TACHYCARDIA Medication List - Last Reconciled 03/21/24 by Isidoro Garcia MD atorvastatin 80 mg PO DAILY clonazepam 1 mg PO BEDTIME PRN dapagliflozin propanediol (Farxiga) 5 mg PO QAM fluoxetine 40 mg PO DAILY fluticasone propionate 50 mcg/actuation 1 spray intranasal DAILY gabapentin 600 mg PO BEDTIME glucose (Dex4 Glucose) 16 grams (4 x 4 gram) PO Q15M PRN 30 days MDD 16 tablets hydroxyzine HCl 10 mg PO BEDTIME PRN ibuprofen 600 mg PO Q6H PRN insulin glargine (Lantus Solostar U-100 Insulin) 14 units (0.14 mL) subcut QPM 30 days insulin lispro (Humalog KwikPen (U-100) Insulin) 2 units (0.02 mL) subcut TID 30 days ketorolac 10 mg PO Q6H PRN losartan 25 mg PO DAILY 30 days omeprazole 40 mg PO DAILY tadalafil 5 mg PO DAILY 90 days tamsulosin 0.4 mg PO BEDTIME 90 days HPI Comments Details: This is a 63-year-old male with a past medical history of pancreatitis, pancreatic mass, multinodular thyroid, vitamin-D deficiency, hypertension, aortic valve stenosis and type 2 diabetes presenting for diabetic management. Agatha download shows he is using the sensor 96% of the time. Average glucose is 225 with G mi of 8.7% and variability 27.7%. Glucose is in target range 24% of the time with 76% hyperglycemia and no hypoglycemia. Trend shows declining blood sugars overnight with rise in blood sugars after dinner Current medication regimen: Lantus 18 units nightly and Humalog 4 units 3 times a day before meals. Farxiga 5 mg QD Trulicity discontinued due to pancreatitis. Metformin discontinued due to GI side effects in the past. Patient was previously on Jardiance which worked very well, and he did not have side effects, but his insurance had stopped covering it at 1 point. Denies history of infections. Patient is not having any juice or soda. He does not smoke. He does not drink alcohol. He has a lot of salad and some rice in his diet. Avoids pasta. Complications: Diabetic eye exam in 01/2024 . No known retinopathy. Patient has nephropathy ( microalbuminuria). Patient has a history of CVA. [facility] Medical History (Updated 03/21/24 @ 11:10 by Enmanuel Crowder, [facility]) Palpitations Pancreatitis Arthritis GERD (gastroesophageal reflux disease) CVA (cerebral vascular accident) Microalbuminuric diabetic nephropathy Type II diabetes with usp use of insulin Erectile dysfunction Vitamin D deficiency Multinodular thyroid Other and unspecified hyperlipidemia Essential hypertension Aortic valve calcification Surgical History History of esophagogastroduodenoscopy (EGD) H/O colonoscopy Family History Father Stroke Brother Stroke Mother Diabetes Social History Household Members: Spouse Housing: House Alcohol intake: never Patient Tobacco Use Status: Former Tobacco user e-Cigarette/Vaping Use: Never Used service: No Current occupational status: disabled Cognitive needs: No Hearing needs: No Vision needs: Yes Physical Exam Vital Signs: Last Vital Signs Pulse 86 03/21/24 10:46 BP 138/84 03/21/24 10:46 BMI result Body Mass Index 26.2 Absence of Cushingoid features. Absence of acromegalic features. Neck exam reveals nl size thyroid about 15 gms. No thyroid nodules palpable. No carotid bruits present. Lungs CTA. Heart S1 S2, Reg R/R. No M/R/ G. Skin exam reveals absence of vitiligo or acanthosis nigricans. Abdominal exam reveals Soft NT/ND with NA BS. No organomegaly present. Neck Other: . Extrem Other: Visual exam of foot performed. No ulcerations or open lesions. No onchomycosis, no callouses.Pulses 2 + distally Sensation intact to monofilament exam. 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 II diabetes with terminal block assembler use of insulin: Code(s): E11.9 - Type 2 diabetes mellitus without complications; Z79.4 - terminal supervisor (current) use of insulin Category: Medical Qualifiers: Diabetes mellitus complication status: with kidney complications Diabetes mellitus complication detail: with nephropathy Qualified Code(s): E11.21 - Type 2 diabetes mellitus with diabetic nephropathy; Z79.4 - longterm (current) use of insulin Plan: This is a 63-year-old male with a history of type 2 diabetes the setting of pancreatitis being treated with basal-bolus insulin and Farxiga with poor glycemic control with known microvascular complications of macrovascular complications namely nephropathy and CVA. The plan is to decrease Lantus to 15 units but increase the Humalog to 8 units prior to dinner. Consideration could be given to the use of an insulin pump in the future considering the high variability a blood sugars. We will check lipid profile when available. Will have patient follow up with Karla Berger NP in 1-2 months Coding Level of Care Code Est Pt Level 4 (61856) Complex EM visit Add On G2211 Diagnoses Type 2 diabetes mellitus with diabetic nephropathy, with long-term current use of insulin E11.21; Z79.4 Diabetes mellitus complication status: with kidney complications Diabetes mellitus complication detail: with nephropathy
[2024-03-21 10:46] VITALS: BP 138/84; PULSE 86; BMI 26.2
[2024-03-21 10:58] LABS: Glucose, Whole Blood 147 mg/dL (60-115)
== END 2024-03-21 11:14 | disposition home or self-care (01) ==
PROVIDERS: PCP Nurse Practitioner Family; Visit Provider Internal Medicine Endocrinology, Diabetes & Metabolism
DX: E11.21 Type 2 diabetes mellitus with diabetic nephropathy (principal); Z79.4 Long term (current) use of insulin
CPT/HCPCS: 99214; G2211

== ENCOUNTER 2024-03-23 08:19 | Outpatient (REF) | payer MEDICARE, MEDICAID, SELFPAY ==
[2024-03-23 10:04] LABS: MANUAL DIFF FLAG NO
[2024-03-23 10:10] LABS: Basophils Percent Auto 0.6 % (0-2); Eosinophils Absolute Auto 0.2 X10*3/uL (0.0-0.4); Eosinophils Percent Auto 4.3 % (0-4); Hematocrit 48.8 % (42.0-52.0); Hemoglobin 16.9 g/dl (14.0-18.0); Imm Gran Abs Auto 0.01 X10*3/uL (0.00-0.03); Imm Gran Pct Auto 0.2 % (0.0-0.4); Lymphocytes Percent Auto 37.6 % (20-40); Mean Corpuscular HGB Conc 34.6 g/dl (31.0-36.0); Mean Corpuscular Volume 80.8 fL (80.0-98.0); Monocytes Absolute Auto 0.5 X10*3/uL (0.1-1.2); Monocytes Percent Auto 8.8 % (2-11); Neutrophils Absolute Auto 2.6 x10*3/uL (2.0-8.3); Neutrophils Percent Auto 48.5 % (45-73); Platelet Count 233 X10*3/uL (160-400); Red Blood Count 6.04 X10*6/uL (4.60-5.80); Red Cell Distribution Width 12.5 % (11.0-16.0); White Blood Count 5.3 X10*3/uL (4.8-10.8)
[2024-03-23 10:15] LABS: Appearance Urine Clear; Color Urine Yellow; Glucose Urine UA >=1000 mg/dL (Negative); Leukocyte Esterase Urine Negative (Negative); Nitrite Urine Negative (Negative); Specific Gravity - Urine 1.025 (1.005-1.025); UMIC TRIGGER UACC YES; Urine Blood Negative (Negative); Urine Ketones Negative (Negative); Urine Protein 100 (2+) mg/dL (Neg-Trace)
[2024-03-23 10:18] LABS: Estimated Glomerular Filt Rate > 60
[2024-03-23 10:22] LABS: Bacteria Urine None Seen (None Seen); Hyaline Casts Urine 0-2 /LPF (0-2); RBC Urine 0-2 /HPF (0-2); Squamous Epithelial Cell Urine 0-2 /HPF (0-2); WBC Urine 0-5 /HPF (0-5)
== END 2024-03-23 08:20 | disposition home or self-care (01) ==
LOC: HO.HMGCLDS 08:19
PROVIDERS: Physician Assistant Medical; PCP Nurse Practitioner Family; Visit Provider Nurse Practitioner Family
DX: K85.90 Acute pancreatitis without necrosis or infection, unspecified (principal); R80.9 Proteinuria, unspecified; E11.69 Type 2 diabetes mellitus with other specified complication; N52.1 Erectile dysfunction due to diseases classified elsewhere
CPT/HCPCS: 36415; 81001; 82565; 83036; 85025; 99212

== ENCOUNTER 2024-03-23 15:54 | Outpatient (AMB) | payer MEDICARE, MEDICAID, SELFPAY ==
[2024-03-23 16:03] VITALS: BP 118/82; PULSE 90; O2SAT 99; BMI 25.7
--- NOTE | 2024-03-23 16:03 | MHC.PC.OV ---
Vital Signs 03/23/24 16:03 Height 5 ft 8 in Weight 169 lb BMI 25.7 BP 118/82 Blood Pressure Location Rt brachial Position Sitting Pulse 90 Pulse Source Pulse Oximeter Pulse Oximetry (%) 99 Oxygen Delivery Method Room Air Intake Visit Reasons: F/u labs to be done prior to appt Allergies codeine [CODEINE] Allergy (Intermediate, Verified 03/23/24 16:49) TACHYCARDIA Medication List - Last Reconciled 03/23/24 by CHRISTEL MartinezP- atorvastatin 80 mg PO DAILY clonazepam 1 mg PO BEDTIME PRN dapagliflozin propanediol (Farxiga) 5 mg PO QAM fluoxetine 40 mg PO DAILY fluticasone propionate 50 mcg/actuation 1 spray intranasal DAILY gabapentin 600 mg PO BEDTIME glucose (Dex4 Glucose) 16 grams (4 x 4 gram) PO Q15M PRN 30 days MDD 16 tablets hydroxyzine HCl 10 mg PO BEDTIME PRN ibuprofen 600 mg PO Q6H PRN insulin glargine (Lantus Solostar U-100 Insulin) 15 units subcut QPM insulin lispro (Humalog KwikPen (U-100) Insulin) 5 units subcut TID ketorolac 10 mg PO Q6H PRN losartan 25 mg PO DAILY 30 days omeprazole 40 mg PO DAILY tadalafil 5 mg PO DAILY 90 days tamsulosin 0.4 mg PO BEDTIME 90 days Tobacco use date assessed: 03/23/24 Dental Screening Dental Screen Date: 03/23/24 Did you have a dental visit in the last 12 months?: Yes Did you have a dental problem in the last 6 months where you did not have access to dental care?: No Was dental information given to patient?: Patient has dentist HPI F/u labs to be done prior to appt HPI Details Chief Complaint Follow-up appointment for diabetes management. History of Present Illness The patient is a 63-year-old male presenting with a follow-up visit for diabetes mellitus management. His current treatment regimen includes using Lantus insulin at 15 units daily and Humalog insulin at approximately 5 units before meals, three times a day. Previously, his glycemic control showed an HbA1c of 7.7% on the current medication dosage. He reports no symptoms of peripheral neuropathy, such as numbness or tingling. His eye exam is reported to be up-to-date. During this visit, proteinuria was detected. He is currently under the care of an automatic fancy machine operator with an upcoming appointment scheduled in approximately four weeks. Social History Health Maintenance - Reports that eye examination is up to date. Review of Systems - Neurological: Denies numbness or tingling. Physical Exam General: Cooperative, healthy appearing, comfortable, no acute distress and well developed Orientation: Patient oriented x3 Limitations: No limitations Head: Normal to inspection Ears: Hearing grossly normal bilaterally Nose: Normal external nose present Face and sinus: Normal facial exam Eyes: Appearance normal, both eyes and all related structures Neck: Normal visual inspection and Yes full ROM Respiratory: Normal respiratory effort and able to speak in complete sentences. Clear to auscultation bilaterally Cardiovascular: Regular rate and rhythm. S1 S2 faint systolic murmur GI: Normal to inspection. Soft to palpation and nontender Skin: No rashes or lesions noted, feet are intact, + sensation with use of monofilament Neuro: Patient oriented x3 Extremities: Normal to inspection Results - Labs: HbA1c at 7.7% - Tests: Presence of protein in urine Plan - Increase Lantus dosage from 15 units to 20 units daily for better glycemic control. - Referral to a university lecturer for further evaluation and management of proteinuria. - Follow-up with automatic fancy machine operator in approximately four weeks. Patient was informed and verbally consented to the use of an ambient scribe for clinic note documentation during this visit. Discussion Notes I discussed with the patient the current status of his diabetes management and the decision to increase his Lantus insulin dosage for improved control of blood glucose levels. We also talked about the need to consult a university lecturer due to the newly identified proteinuria, and its potential implications for kidney health. The importance of continuing regular follow-ups with his automatic fancy machine operator was emphasized, as well as monitoring his blood glucose levels consistently. The patient understood the treatment plan and agreed to the proposed changes. Patient Instructions - Increase Lantus insulin to 20 units daily as discussed. - Continue taking Humalog before meals as prescribed. - Monitor blood glucose levels regularly and maintain a log. - Attend the scheduled appointment with the automatic fancy machine operator in four weeks. - Follow up with the university lecturer for the proteinuria evaluation. - Seek medical attention if any new symptoms or concerns arise. -follow up with endocrinology in 4 weeks as scheduled. [facility] Medical History (Updated 03/21/24 @ 11:10 by Rudy Glogowski, MATH AND SCIENCES DEPARTMENT CHAIR-BC) Palpitations Pancreatitis Arthritis GERD (gastroesophageal reflux disease) CVA (cerebral vascular accident) Microalbuminuric diabetic nephropathy Type II diabetes with terminal operations manager use of insulin Erectile dysfunction Vitamin D deficiency Multinodular thyroid Other and unspecified hyperlipidemia Essential hypertension Aortic valve calcification Surgical History History of esophagogastroduodenoscopy (EGD) H/O colonoscopy Family History Father Stroke Brother Stroke Mother Diabetes Social History Household Members: Spouse Housing: House Alcohol intake: never Patient Tobacco Use Status: Former Tobacco user e-Cigarette/Vaping Use: Never Used service: No Current occupational status: disabled Cognitive needs: No Hearing needs: No Vision needs: Yes Questionnaire Thrive Questionnaire Date Thrive assessed: 04/21/23 LOBO-7 AMB Questionnaire LOBO-7 Date LOBO - 7 assessed: 04/21/23 Source: Developed by Drs. Isidoro England, Kylie Fabian, Arnol Muñiz and colleagues, with an educational timur from [employer]. Physical exam (Primary Care) Vital Signs: Last Vital Signs Pulse 90 03/23/24 16:03 BP 118/82 03/23/24 16:03 Pulse Ox 99 03/23/24 16:03 Oxygen Delivery Method Room Air 03/23/24 16:03 BMI result Body Mass Index 25.7 Tobacco/Smoking Status: Tobacco use Status Tobacco use date assessed 03/23/24 03/23/24 16:06 Patient Tobacco Use Status Former Tobacco user 03/23/24 16:04 e-Cigarette/Vaping Use Never Used 03/23/24 16:04 Thrive Assessment: Date of Thrive Assessment Date Thrive assessed 04/21/23 03/23/24 16:04 Results AMB Hemoglobin A1c AMB Hemoglobin A1c 7.7 % Last Edit by IDANIA Michelle on 03/23/24 16:20 Results Reviewed Results Reviewed: Laboratory Last Values Hgb A1c (Clinic) 7.7 % (4.0-6.0) H 03/23/24 16:17 Coding Level of Care Code Est Pt Level 3 (38695) Diagnoses Proteinuria R80.9 Erectile dysfunction associated with type 2 diabetes mellitus E11.69; N52.1 Assessment & Plan Assessment & Plan (1) Proteinuria: Code(s): R80.9 - Proteinuria, unspecified Category: Medical (2) Erectile dysfunction associated with type 2 diabetes mellitus: Code(s): E11.69 - Type 2 diabetes mellitus with other specified complication; N52.1 - Erectile dysfunction due to diseases classified elsewhere Category: Medical Plan . Orders: Orders AMB Hemoglobin A1c Today Z13.9 - Encounter for screening, unspecified Referrals Nephrology Referral R80.9 - Proteinuria, unspecified Medications: Changed From insulin glargine (Lantus Solostar U-100 Insulin) 15 units subcut QPM To insulin glargine (Lantus Solostar U-100 Insulin) 22 units (0.22 mL) subcut QPM 15 mL 0RF From insulin glargine (Lantus Solostar U-100 Insulin) 22 units (0.22 mL) subcut QPM 15 mL 0RF To insulin glargine (Lantus Solostar U-100 Insulin) 20 units (0.2 mL) subcut QPM 15 mL 0RF
== END 2024-03-23 17:00 | disposition home or self-care (01) ==
PROVIDERS: PCP Nurse Practitioner Family; Visit Provider Nurse Practitioner Family
DX: R80.9 Proteinuria, unspecified (principal); E11.69 Type 2 diabetes mellitus with other specified complication; N52.1 Erectile dysfunction due to diseases classified elsewhere; Z13.9 Encounter for screening, unspecified

== ENCOUNTER 2024-03-27 14:19 | Outpatient (AMB) | payer MEDICARE, MEDICAID, SELFPAY ==
--- NOTE | 2024-03-27 15:25 | A.OFFVIS_ITS ---
Intake Intake Visit Reasons: 60 min Straightening Machine Feeder Required: Yes Straightening Machine Feeder Language: Curriculum And Assessment Coordinator Name: Melissa [id number] Information Interpreted: non-clinical & clinical Accompanied by: Self / Same As Patient Allergies codeine [CODEINE] Allergy (Intermediate, Verified 03/23/24 16:49) TACHYCARDIA HPI Comprehensive Diabetes Asmnt Most Recent Diabetes Results: Hemoglobin A1c TNP % 02/20/19 Microalb/Creat Ratio 51.4 ug/mg cr (<30) H 08/09/23 Cholesterol 264 mg/dL (<200) H 03/21/24 HDL Cholesterol 47 mg/dL (>40) 03/21/24 Triglycerides 136 mg/dL (<150) 03/21/24 Creatinine 0.90 mg/dL (0.5-1.4) 03/23/24 Blood Urea Nitrogen 18 mg/dL (9-16) H 03/21/24 Sodium 138 mmol/L (135-145) 03/21/24 Potassium 3.5 mmol/L (3.3-5.1) 03/21/24 Chloride 103 mmol/L (96-108) 03/21/24 Carbon Dioxide 28 mmol/L (22-29) 03/21/24 Calcium 9.5 mg/dL (8.4-10.2) 03/21/24 AST 22 U/L (5-37) 03/21/24 ALT 30 U/L (0-40) 03/21/24 Total Protein 8.0 g/dL (6.5-8.0) 03/21/24 Albumin 4.3 g/dL (3.5-5.0) 03/21/24 [facility] Medical History (Updated 03/21/24 @ 11:10 by Enmanuel Crowder, 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 use of insulin Erectile dysfunction Vitamin D deficiency Multinodular thyroid Other and unspecified hyperlipidemia Essential hypertension Aortic valve calcification Surgical History History of esophagogastroduodenoscopy (EGD) H/O colonoscopy Family History Father Stroke Brother Stroke Mother Diabetes Social History Household Members: Spouse Housing: House Alcohol intake: never Patient Tobacco Use Status: Former Tobacco user e-Cigarette/Vaping Use: Never Used service: No Current occupational status: disabled Cognitive needs: No Hearing needs: No Vision needs: Yes Assessment & Plan Assessment & Plan (1) Type 2 diabetes mellitus with unspecified complications: Code(s): E11.8 - Type 2 diabetes mellitus with unspecified complications Plan: Diabetes self-management education and support participation record Assessment/scale: 1= needs instructed? 2= needs review? 3= comprehend keep point? 4= demonstrates understanding/ competent? NC= Not Covered Topics Learning Objective: Initial visit Initial or post srvc Initial or post srvc Initial or post srvc Initial or post srvc Initial or post srvc Post srvc Comments Pre Edu-assessment/plan Outcome or reassess Outcome or reassess Outcome or reassess Outcome or reassess Outcome or reassess Outcome or reassess Diabetes pathophysiology 1 Healthy eating 1 Being active 1 Taking medication 1 Monitoring glucose 1 Acute complication Chronic complicated Lifestyle and healthy coping Diabetes distress in support 1 ?Diabetes pathophysiology: ?Defined diabetes med identify own type of diabetes; list 3 options for treating diabetes Healthy eating: ?Described effect of type, amount and ?timing of food on blood glucose; list 3 methods for planning meal Being active: ?State effect of exercise on blood glucose level Taking medication: ?State effect of diabetes medications on diabetes; name diabetes medications taking, action and side effects Monitoring glucose: ?Identify recommended blood glucose targets and personal target Acute complication: ?List symptoms and treatment of hyper and hypoglycemia, DKA, sick day guidelines and guidelines for severe weather or situations of crisis and diabetes supply manage Chronic complication: ?To find the relationship of blood glucose levels to long- term complications of diabetes in screening and preventative measures Lifestyle and healthy coping: ?Described lifestyle and healthy coping strategies to rule out diabetes self-management Diabetes to stress and support: ?Recognize Diabetes to stress and be able to identified support options Learning objectives: The patient was provided with verbal and written education on the following topics as outlined below. The patient met all learning objectives and was able to verbalize understanding and provide teach back of education topics discussed . The patient was provided with the opportunity to ask questions and all questions were answered. Patient Assessment Assess patient education level/literacy/barriers, patient referred to Diabetes Education for CGM and insulin pump info Patient questions/concerns, patient's last A1c on 03/23/2024 7.7% Patient is being seen by RD on 04/04/2024 and ASSISTANT REAL ESTATE MANAGER 04/21/24 What is Diabetes? Pathophysiology How the body produces and uses insulin Identify type of DM Risk factors Signs of Diabetes Brief overview of Diabetes Management Monitoring blood sugar Following a meal plan Regular exercise Maintaining a healthy weight Taking medication as needed Members of the care team (PCP, RN, MA, RD, CDE, radiologic technologist chief) Blood glucose monitoring When/how often to test Target blood sugar ranges Patient using triptapstyle Agatha 3, with received Patient's average glucose for the past 14 days 208 mg/dL Patient above target 63% At target 37% Below target 0% Introduction to Nutrition Importance of healthy diet in managing DM Diet is personalized to individual preference Review patient?s regular diet/food preferences Who prepares meals/does food shopping/ Dining out?/ Barriers? How diet effects glucose Eating 3 balanced meals a day with small, healthy snacks between meals Review food groups Carbohydrates: What is a carbohydrate/Which food/food groups are considered carbohydrates Effect of carbohydrates on blood glucose Portion sizes Reading food labels Basic carb counting (if applicable per nursing assessment) Plate method Meal planning Recommendations: Follow plate method, consistent carbs and read nutritional labels. Smart Goal: Patient will identify foods that contain carbohydrates in his current meal plan over the next 6 weeks before next visit Educational Materials: The patient was provided with the following written educational materials: Planning Healthy Meals Handout Patient Response to instructions: Comprehension of Instructions: Fair Readiness to make changes: Contemplation How confident they feel about making changes: Positive Portions of this note were created using voice recognition software, please excuse any words or phrases that may have been misinterpreted. Patient Instructions: Incluir actividad diaria regular. ADA recomienda 30 minutos de ejercicio 5 d?as a la semana. P?rdida de peso, hable con el PCP o el cardi?logo antes de comenzar un nuevo plan. Mida el nivel de az?car en la douglas seg?n las indicaciones; Ayuno y comida m?s alonzo de 2hpp. Observe las tendencias en los resultados. Utilice los resultados y eval?e c?mo los alimentos, la actividad f?елена y los medicamentos afectan los resultados de az?car en la douglas. Lleve el gluc?metro o CGM a la pr?xima visita. Conocer los medicamentos para la diabetes, dsouza acci?n, los efectos secundarios, la eficacia, la toxicidad, la dosis prescrita, el momento y la frecuencia de administraci?n apropiados, el efecto de las dosis olvidadas y retrasadas y las instrucciones de almacenamiento, viaje y seguridad. T?cnicas de resoluci?n de problemas para el seguimiento de episodios de hipo/hiperglucemia y tratamientos. Reducir los comportamientos de reducci?n de riesgos, dejar de fumar, ex?menes regulares de ojos, pies y dentales. Coding Level of Care Code Est Pt Level 1 (22247) Diagnoses Type 2 diabetes mellitus with unspecified complications E11.8
== END 2024-03-27 15:31 | disposition home or self-care (01) ==
PROVIDERS: PCP Nurse Practitioner Family; Visit Provider Registered Nurse Diabetes Educator
DX: E11.8 Type 2 diabetes mellitus with unspecified complications (principal)

== ENCOUNTER → 2024-03-27 14:19 | Outpatient (BNVA) | payer MEDICARE, MEDICAID, SELFPAY | PROVIDERS: PCP Nurse Practitioner Family; Visit Provider Registered Nurse Diabetes Educator | DX: E11.8 Type 2 diabetes mellitus with unspecified complications (principal) | CPT/HCPCS: 99211 ==

== ENCOUNTER 2024-03-30 14:21 | Outpatient (AMB) | payer MEDICARE, MEDICAID, SELFPAY ==
[2024-03-30 14:25] VITALS: BP 102/70; PULSE 95; O2SAT 96; BMI 26.1
--- NOTE | 2024-03-30 14:25 | HO.NEPHOV ---
Vital Signs 03/30/24 14:25 Height 5 ft 8 in Weight 172 lb BMI 26.1 BP 102/70 Blood Pressure Location Lt brachial Position Sitting Pulse 95 Pulse Source Pulse Oximeter Pulse Oximetry (%) 96 Oxygen Delivery Method Room Air Intake Visit Reasons: INP: Proteinuria/ Conf Application Development Intern Required: Yes Application Development Intern Name: Amado [id number] Accompanied by: Self / Same As Patient Allergies codeine [CODEINE] Allergy (Intermediate, Verified 03/30/24 14:29) TACHYCARDIA Medication List - Last Reconciled 03/30/24 by Trent Benjamin MD atorvastatin 80 mg PO DAILY clonazepam 1 mg PO BEDTIME PRN dapagliflozin propanediol (Farxiga) 5 mg PO QAM fluoxetine 40 mg PO DAILY gabapentin 600 mg PO BEDTIME glucose (Dex4 Glucose) 16 grams (4 x 4 gram) PO Q15M PRN 30 days MDD 16 tablets hydroxyzine HCl 10 mg PO BEDTIME PRN ibuprofen 600 mg PO Q6H PRN insulin glargine (Lantus Solostar U-100 Insulin) 20 units (0.2 mL) subcut QPM insulin lispro (Humalog KwikPen (U-100) Insulin) 5 units subcut TID ketorolac 10 mg PO Q6H PRN losartan 25 mg PO DAILY 30 days omeprazole 40 mg PO DAILY tadalafil 5 mg PO DAILY 90 days tamsulosin 0.4 mg PO BEDTIME 90 days HPI Comments Details: 63 yr old man with DM found to have protinuria recently stated on Losartan 25 mg Renal function has been in normal range [facility] Medical History (Updated 03/21/24 @ 11:10 by Enmanuel Crowder, [facility]) Palpitations Pancreatitis Arthritis GERD (gastroesophageal reflux disease) CVA (cerebral vascular accident) Microalbuminuric diabetic nephropathy Type II diabetes with oysterman use of insulin Erectile dysfunction Vitamin D deficiency Multinodular thyroid Other and unspecified hyperlipidemia Essential hypertension Aortic valve calcification Surgical History History of esophagogastroduodenoscopy (EGD) H/O colonoscopy Family History Father Stroke Brother Stroke Mother Diabetes Social History (Reviewed 01/02/25 @ 14:28 by SHAJI Madison Household Members: Spouse Housing: House Alcohol intake: never Patient Tobacco Use Status: Former Tobacco user e-Cigarette/Vaping Use: Never Used service: No Current occupational status: disabled Cognitive needs: No Hearing needs: No Vision needs: Yes Review of Systems Const Denies fever(s) and Denies weight loss Card Denies chest pain Resp Denies cough and Denies hemoptysis GI Denies abdominal pain, Denies diarrhea and Denies nausea Musc Denies back pain Neuro Denies focal weakness Physical Exam Vital Signs: Last Vital Signs Pulse 95 03/30/24 14:25 BP 102/70 03/30/24 14:25 Pulse Ox 96 03/30/24 14:25 Oxygen Delivery Method Room Air 03/30/24 14:25 BMI result Body Mass Index 26.1 Comfortable Neck supple no JVD. Lungs entry equal no rales. Heart S1-S2 heard no gallop or rub. Abdomen soft nontender. Neuro alert awake oriented. No asterixis. Extremities no edema. Results Reviewed Nephrology Results: Hgb 16.9 g/dl (14.0-18.0) 03/23/24 WBC 5.3 X10*3/uL (4.8-10.8) 03/23/24 Plt Count 233 X10*3/uL (160-400) 03/23/24 Sodium 138 mmol/L (135-145) 03/21/24 Potassium 3.5 mmol/L (3.3-5.1) 03/21/24 Chloride 103 mmol/L (96-108) 03/21/24 Carbon Dioxide 28 mmol/L (22-29) 03/21/24 BUN 18 mg/dL (9-16) H 03/21/24 Creatinine 0.90 mg/dL (0.5-1.4) 03/23/24 Calcium 9.5 mg/dL (8.4-10.2) 03/21/24 Urine Protein 100 (2+) mg/dL (Neg-Trace) H 03/23/24 Assessment & Plan Assessment & Plan (1) Proteinuria: Code(s): R80.9 - Proteinuria, unspecified Category: Medical (2) Type 2 diabetes mellitus with unspecified complications: Code(s): E11.8 - Type 2 diabetes mellitus with unspecified complications Category: Medical Plan 64-year-old man with diabetes mellitus with minimal proteinuria most likely due to underlying diabetic kidney disease. Blood pressure is in the normal range. Renal function stable with a creatinine of 0.9 mg/dL. Nondiabetic causes seem less likely at this point. Goal is to slow the progression of the renal disease. Agree with Drew. Maximize TL inhibition. Currently he is on losartan 25 mg. Since blood pressure is rather on the low side I have not increase the dose. Discussed importance of tight control blood sugar to slow the portion disease. All his questions were answered Orders: Orders UA and rflx microscopic 3 Months R80.9 - Proteinuria, unspecified Creatinine Urine 3 Months R80.9 - Proteinuria, unspecified Basic Metabolic Panel 3 Months R80.9 - Proteinuria, unspecified Total Protein Urine Random 3 Months R80.9 - Proteinuria, unspecified Coding Level of Care Code New Pt Level 4 (98930) Diagnoses Proteinuria R80.9 Type 2 diabetes mellitus with unspecified complications E11.8
== END 2024-03-30 14:46 | disposition home or self-care (01) ==
PROVIDERS: PCP Nurse Practitioner Family; Visit Provider Internal Medicine Hypertension Specialist
DX: R80.9 Proteinuria, unspecified (principal); E11.8 Type 2 diabetes mellitus with unspecified complications
CPT/HCPCS: 99204

== ENCOUNTER → 2024-03-30 14:21 | Outpatient (BNVA) | payer MEDICARE, MEDICAID, SELFPAY | PROVIDERS: PCP Nurse Practitioner Family; Visit Provider Internal Medicine Hypertension Specialist | DX: R80.9 Proteinuria, unspecified (principal); E11.8 Type 2 diabetes mellitus with unspecified complications; Z79.899 Other long term (current) drug therapy | CPT/HCPCS: 99202 ==

== ENCOUNTER → 2024-03-31 13:36 | Outpatient (BNVA) | payer MEDICARE, MEDICAID, SELFPAY | PROVIDERS: PCP Nurse Practitioner Family; Visit Provider Internal Medicine ==

== ENCOUNTER 2024-04-04 10:34 | Outpatient (AMB) | payer MEDICARE, MEDICAID, SELFPAY ==
--- NOTE | 2024-04-04 10:41 | A.OFFVIS_ITS ---
VS Expanded 04/04/24 10:42 Height 5 ft 8 in Weight 172 lb BMI 26.1 Intake Visit Reasons: T2DM/Confirmed Allergies codeine [CODEINE] Allergy (Intermediate, Verified 04/05/24 10:46) TACHYCARDIA Nutrition Presentation Details: Pt presents for MNT for T2DM Pt admits to no dietary modifications, reports increased hunger/appetite and nibbling in the evening Pt verbalizes food sources of carbohydrates and not monitoring intake BS Monitoring Most Recent Diabetes Results: Creatinine 0.90 mg/dL (0.5-1.4) 03/23/24 [facility] Medical History Palpitations Pancreatitis Arthritis GERD (gastroesophageal reflux disease) CVA (cerebral vascular accident) Microalbuminuric diabetic nephropathy 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 use of insulin Erectile dysfunction Vitamin D deficiency Multinodular thyroid Other and unspecified hyperlipidemia Essential hypertension Aortic valve calcification Surgical History History of esophagogastroduodenoscopy (EGD) H/O colonoscopy Family History Father Stroke Brother Stroke Mother Diabetes Social History Household Members: Spouse Housing: House Alcohol intake: never Patient Tobacco Use Status: Former Tobacco user e-Cigarette/Vaping Use: Never Used service: No Current occupational status: disabled Cognitive needs: No Hearing needs: No Vision needs: Yes Assessment & Plan Assessment & Plan (1) 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 helper use of insulin: Code(s): E11.9 - Type 2 diabetes mellitus without complications; Z79.4 - MCC (current) use of insulin Category: Medical Qualifiers: Diabetes mellitus complication detail: with nephropathy Diabetes mellitus complication status: with kidney complications Qualified Code(s): E11.21 - Type 2 diabetes mellitus with diabetic nephropathy; Z79.4 - terminal carman (current) use of insulin Plan: Wt: 76 Kg ( 02/19 ), 78 kg(04/22) Est kcal needs as per MSJ: 2200 (40% carb, 30% protein/fat) Est fluid needs as per 25-30 ml/d: 2300 Est prot per day as per 1 g/kg bw: 76 Recommend fiber intake : 8-10 g per day and gradually increase to 25-28 g per day for women and 35-38 g for men or as tolerated Recommend sodium intake per day : less than 2300 mg Educated patient on: ( R = reviewed V = verbalizes understanding N/R = needs review N/A = not applicable * Food sources of carbohydrate, adequate serving sizes and its role in various health conditions: R v * Differences between complex carbohydrates a simple carbohydrates, role of fiber in diet: R * Lean protein sources of foods: R * Differences between types of fats and role in diet (mono on saturated fat fatty acids, saturated fatty acids, trans fats): R * Food sources of sodium in salt and healthy modifications for heart health in kidney health: R V R/V * Vitamins and minerals: R V N/R * Healthy plate method concept: R Reducing portion of starchy * Physical activity: Benefits a precaution: R V * Hypoglycemia protocol (rule of 15): R , prevention * Dietary prevention of Hyperglycemia: R Patient Instructions: Monitor portion of starches at dinner : less than 1 1/2 cups of cooked starches - choose higher fiber options and include larger portion of nonstarchy vegetables MOnitor snacks and read food labels for amount of carbohydrate, work on reducing carbs to less than 30 g carb as a snack before bedtime (1 cup of milk and 1/2 sandwich as example , see list of options lower in carbohydrates Drink water, herb/fruit infused water, decaf tea keep physically active as able Coding Level of Care Code Nutr Indiv Subseq (27758) Diagnoses Type 2 diabetes mellitus with diabetic nephropathy, with long-term current use of insulin E11.21; Z79.4 Diabetes mellitus complication detail: with nephropathy Diabetes mellitus complication status: with kidney complications Time Spent (min) 30
[2024-04-04 10:42] VITALS: BMI 26.1
== END 2024-04-04 11:50 | disposition home or self-care (01) ==
PROVIDERS: PCP Nurse Practitioner Family; Visit Provider Dietitian, Registered
DX: E11.21 Type 2 diabetes mellitus with diabetic nephropathy (principal); Z79.4 Long term (current) use of insulin

== ENCOUNTER → 2024-04-04 10:34 | Outpatient (BNVA) | payer MEDICARE, MEDICAID, SELFPAY | PROVIDERS: PCP Nurse Practitioner Family; Visit Provider Dietitian, Registered | DX: E11.21 Type 2 diabetes mellitus with diabetic nephropathy (principal); Z79.4 Long term (current) use of insulin | CPT/HCPCS: 97803 ==

== ENCOUNTER 2024-04-05 10:15 | Outpatient (AMB) | payer MEDICARE, MEDICAID, SELFPAY ==
--- NOTE | 2024-04-05 10:43 | MHC.OFFVIS ---
Vital Signs 04/05/24 10:44 Height 5 ft 8 in Weight 171 lb 15.369 oz BMI 26.1 BP 118/83 Blood Pressure Location Lt brachial Position Sitting Pulse 80 Intake Visit Reasons: Post Op Colonoscopy Intake Note: Kate presents in the office as a follow up colonoscopy. CC: HE states that he had the colonoscopy and he states that he is feeling okay but just here for results. Surfboard Maker Required: Yes Surfboard Maker Name: Chay [id number] Allergies codeine [CODEINE] Allergy (Intermediate, Verified 04/05/24 10:46) TACHYCARDIA HPI Comments Details: This is a 61y.o M with PMH of HTN, HLD, GERD who is here after ER visit x 2 for abdominal pain. History was obtained from the pt with the help of a educational sign language interpreter. Main complaint is burning abd pain after he eats that started almost 2 weeks ago. No N/V/D. No fevers or chills. No changes in appetite or bowel habits. Takes ibuprofen for this. Does not smoke or etOH. Work up in ER included a CT abd/pelvis that showed some non-specific wall thickening in the small bowel. Labs grossly normal. Was given Omeprazole 40 and sucrafate 1g TID which have helped the sx. Of note, pt has hx of SSL in 2017 (Dr Marie, [facility]). Repeat recommended in 5y, however pt was in [place] when he got the call to schedule the procedure and then did not call back to reschedule. 11/15/23: Procedure had to be canceled last year as pt got admitted for stroke. Now doing well. Here to rebook this procedure. Otherwise, no complaints. No abd pain, N,V,D. Previously had requested suprep but now requests a different prep. 03/16/24: 1. Normal colon mucosa 2. Total of 1 polyp removed 3. Diverticulosis 4. Internal hemorrhoids Path: Colon, transverse, polypectomy: Hyperplastic mucosal polyp. 04/05/24: No GI concerns at the moment. Wishes to review results in person, as letter had already been sent previously. Reassured that benign polyp. In terms of heartburn/gerd, this is well controlled on omeprazole 40 which he has been taking for almost 6 months now. [facility] Medical History Palpitations Pancreatitis Arthritis GERD (gastroesophageal reflux disease) CVA (cerebral vascular accident) Microalbuminuric diabetic nephropathy Type II diabetes with usp use of insulin Erectile dysfunction Vitamin D deficiency Multinodular thyroid Other and unspecified hyperlipidemia Essential hypertension Aortic valve calcification Surgical History History of esophagogastroduodenoscopy (EGD) H/O colonoscopy Family History Father Stroke Brother Stroke Mother Diabetes Social History Household Members: Spouse Housing: House Alcohol intake: never Patient Tobacco Use Status: Former Tobacco user e-Cigarette/Vaping Use: Never Used service: No Current occupational status: disabled Cognitive needs: No Hearing needs: No Vision needs: Yes Review of Systems Const All systems reviewed & are unremarkable except as noted in HPI and below Physical Exam Vital Signs: Last Vital Signs Pulse 80 04/05/24 10:44 BP 118/83 04/05/24 10:44 BMI result Body Mass Index 26.1 No apparent distress Nonicteric Abdomen soft, nondistended Alert and oriented x3, normal gait Assessment & Plan Assessment & Plan (1) Personal history of colonic polyps: Code(s): Z86.010 - Personal history of colon polyps Category: Medical Plan: Repeat colo recommended in 5-7 years. (2) GERD (gastroesophageal reflux disease): Code(s): K21.9 - Gastro-esophageal reflux disease without esophagitis Category: Medical Plan: Well controlled, will aim to taper down to lowest effective dose. Omeprazole decreased to 20 mg once daily Plan follow up PRN Medications: Changed From omeprazole 40 mg PO DAILY 90 caps 0RF To omeprazole 20 mg PO DAILY 90 caps 2RF 90 days Coding Level of Care Code Est Pt Level 3 (50618) Diagnoses Personal history of colonic polyps Z86.010 GERD (gastroesophageal reflux disease) K21.9
[2024-04-05 10:44] VITALS: BP 118/83; PULSE 80; BMI 26.1
== END 2024-04-05 11:52 | disposition home or self-care (01) ==
PROVIDERS: PCP Nurse Practitioner Family; Visit Provider Internal Medicine
DX: Z86.0100 Personal history of colon polyps, unspecified (principal); K21.9 Gastro-esophageal reflux disease without esophagitis
CPT/HCPCS: 99213

== ENCOUNTER → 2024-04-05 10:15 | Outpatient (BNVA) | payer MEDICARE, MEDICAID, SELFPAY | PROVIDERS: PCP Nurse Practitioner Family; Visit Provider Internal Medicine | DX: K21.9 Gastro-esophageal reflux disease without esophagitis (principal); Z86.0100 Personal history of colon polyps, unspecified | CPT/HCPCS: 99212 ==

== ENCOUNTER 2024-04-21 11:53 | Outpatient (AMB) | payer MEDICARE, MEDICAID, SELFPAY ==
--- NOTE | 2024-04-21 10:06 | A.OFFVIS_ITS ---
Vital Signs 04/21/24 12:37 Height 5 ft 8 in Weight 178 lb 9.191 oz BMI 27.1 BP 112/76 Blood Pressure Location Rt brachial Position Sitting Pulse 81 Pulse Source Pulse Oximeter Intake Visit Reasons: f/u Type 2 DM Intake Note: Patient presents today for a follow-up on Type 2 Diabetes Mellitus: Last Diabetic eye exam was on: DUE Last Podiatry exam was on: Patient does not see a Flatbed Driver Most recent HbA1c: 7.7%, 03/23/2024 Random Glucose- 221 mg/dL, Today Swine Genetics Researcher Required: Yes Swine Genetics Researcher Language: Production Machine Shop Supervisor Services: Swine Genetics Researcher Present Swine Genetics Researcher Name: IDANIA Ronquillo/JANAE SALVADOR Accompanied by: Self / Same As Patient Allergies codeine [CODEINE] Allergy (Intermediate, Verified 04/21/24 12:43) TACHYCARDIA HPI Comments Details: This is a 63-year-old male with a past medical history of pancreatitis, pancreatic mass, multinodular thyroid, vitamin-D deficiency, hypertension, aortic valve stenosis and type 2 diabetes presenting for diabetic management. Hemoglobin A1c 03/23/2024 7.7% 08/11/2023 7.0% He was previously on Trulicity which was discontinued secondary to pancreatitis. Metformin caused GI side effects Patient was previously on Jardiance which worked very well, and he did not have side effects, but his insurance had stopped covering it at 1 point. Denies history of infections Freestyle mnada sensor 3 average glucose: 167 14 day continuous glucose sensor report reviewed Glucose Management indicator 7.3 % TIme in ranges: 0 % very high (above 250) 29 % high (181-250) 67 % in range (70-180] 0 % low (69-55) 0 % very low (below 54) 25.2 Glucose variability [ ] (target <36%) Interpretation of CGMS overall well-controlled could be lower in the morning Current medication regimen: Lantus 22 units nightly Humalog 9 units 3 times a day before meals [facility] Patient is not having any juice or soda. He does not smoke. He does not drink alcohol. He has a lot of salad and some rice in his diet. Avoids pasta. Complications: Diabetic eye exam in 01/2024 . No known retinopathy. Patient has nephropathy ( microalbuminuria). 03/23/2024 eGFR>60 08/09/2023 microalbumin 54.0 Patient has a history of CVA. [facility] Medical History Palpitations Pancreatitis Arthritis GERD (gastroesophageal reflux disease) CVA (cerebral vascular accident) Microalbuminuric diabetic nephropathy Type II diabetes with mcfp use of insulin Erectile dysfunction Vitamin D deficiency Multinodular thyroid Other and unspecified hyperlipidemia Essential hypertension Aortic valve calcification Surgical History History of esophagogastroduodenoscopy (EGD) H/O colonoscopy Family History Father Stroke Brother Stroke Mother Diabetes Social History Household Members: Spouse Housing: House Alcohol intake: never Patient Tobacco Use Status: Former Tobacco user e-Cigarette/Vaping Use: Never Used service: No Current occupational status: disabled Cognitive needs: No Hearing needs: No Vision needs: Yes Physical Exam Vital Signs: Last Vital Signs Pulse 81 04/21/24 12:37 BP 112/76 04/21/24 12:37 BMI result Body Mass Index 27.1 Const Other: Absence of Cushingoid features. Absence of acromegalic features. Neck exam reveals nl size thyroid about 15 gms. No thyroid nodules palpable. No carotid bruits present. Lungs CTA. Heart S1 S2, Reg R/R. No M/R G. Skin exam reveals absence of vitiligo or acanthosis nigricans. No edema Results Reviewed Results Reviewed: Laboratory Last Values Glucose (Clinic) 221 mg/dL (60-115) H 04/21/24 12:41 Assessment & Plan Assessment & Plan (1) Type 2 diabetes mellitus with unspecified complications: Code(s): E11.8 - Type 2 diabetes mellitus with unspecified complications Category: Medical Plan: This is a 63-year-old male with a history of type 2 diabetes the setting of pancreatitis being treated with basal-bolus insulin and Farxiga with poor glycemic control with known microvascular complications of macrovascular complications namely nephropathy and CVA. New dosing Lantus 24 units at bedtime Humalog 9 units 3 times a day before meals farxiga 5mg Consider adding low-dose pioglitazone next visit The patient had an opportunity to ask questions regarding treatment plan. The patient expressed understanding and agreement with the above treatment plan. The patient is aware they should contact our office by phone for worsening glucose readings or for any low blood sugars which may warrant a change in diabetes medication. Compliance is encouraged with medications and any followup testing/consults which may have been ordered. Medications: Changed From insulin glargine (Lantus Solostar U-100 Insulin) 20 units (0.2 mL) subcut QPM 15 mL 0RF To insulin glargine (Lantus Solostar U-100 Insulin) 24 units (0.24 mL) subcut QPM 90 days 24 mL 3RF Patient Instructions: Take 15 carb carbohydrate grams to treat a low sugar (3-4 glucose tablets, half a glass of juice or 15 carbohydrate grams of soft candy such as gummie snacks). Recheck your sugar in 15 minutes and re-treat again with 15 carbohydrate grams if low or still with symptoms. Do not drive a car or operate machinery if you do not know what your blood sugar is, if it is low or in excess of 300. The patient was counseled to achieve a target A1C of 7% (154 avg). Fasting blood sugars should be 90-130 in the morning and less than 180 two hours after meals. Reviewed the relationship between poor diabetic control and the development of complications. Check your feet daily looking for any signs of infection, drainage, redness, ulceration and seek medical attention if this occurs. Break in shoes gradually and do not wear open-toed shoes or walk stocking footed or barefooted. Coding Level of Care Code Est Pt Level 4 (86577) Complex EM visit Add On G2211 Diagnoses Type 2 diabetes mellitus with unspecified complications E11.8 Time Spent (min) 30 Comment Time spent reviewing labs/provider notes, face to face, chart doc
[2024-04-21 12:37] VITALS: BP 112/76; PULSE 81; BMI 27.1
[2024-04-21 12:44] LABS: Glucose, Whole Blood 221 mg/dL (60-115)
--- OUTSIDE RECORDS SUMMARY | 2024-04-21 14:04 | XMS_ITS | Encounter Summary ---
Author Organization [employer] [facility] Address [address] [place] [address] Care Team Providers Care Fish Conservationist Name Role Phone Payal Walker Primary Care Provider [phone] Encounter Details Date Type Department Care Team (Latest Contact Info) Description 10/03/2018 Abstract [facility] CONVERSIONS Dental, Provider, DDS Social History Tobacco Use Types Packs/Day Years Used Date Smoking Tobacco: Never Assessed Sex and Gender Information Value Date Recorded Sex Assigned at Male 01/26/2022 10:31 AM EDT Legal Sex Male 10:31 AM EDT Gender Identity Male 01/26/2022 10:31 AM EDT Sexual Orientation Straight 01/26/2022 10 :31 AM EDT documented as of this encounter Plan of Treatment Upcoming Encounters Date Type Department Care Team (Late st Contact Info) Description 05/18/2024 10:00 AM EST Office Visit [facility] ADULT D[facility]AL [address] [place] [address] Neptali Palomo, DMD [address] [place] [address] documented as of this encounter Visit Diagnoses Not on filedocumented in this encounter Care Teams Fish Conservationist Relationship Specialty Start Date End Date Payal Walker ANP [address] [place] [address] PCP - General Family Medicine 11/20/21 08/04/23 documented as of this encounter
--- OUTSIDE RECORDS SUMMARY | 2024-04-21 14:04 | XMS_ITS | Encounter Summary ---
Author Organization [employer] Address [address] [place] [address] Care Team Providers Care Medical And Health Services Manager Name Role Phone Unavailable Primary Care Provider Unavailabl e Reason for Visit * Reason Comments Med Refill Encounter Details Date Type Department Care Team ([facility] st Contact Info) Description 04/14/2024 Refill [facility] MEDICINE [address] [place], [place] [phone] Payal Walker, ANP [address] [place] [address] Type 2 diabetes mellitus with hyperlipidemia (CMS/HCC) ([facility]) Social History Tobacco Use Types Packs/Day Years Used Date Smoking Tobacco: Former Cigarettes Smokeless Tobacco: Never Alcohol Use Standard Drinks/Week Comments Not Currently 0 (1 standard drink = 0.6 oz pur e alcohol) Depression Answer Date Recorded Patient Health Questionnaire-9 Score 0 08/04/2022 Housing Stability Answer Date Recorded What is your housing situation today? I have ingrid stack 01/15/[address] you li ve. Do you have problems with any of the following? None of the above 01/15/2023 Food Insecurity Answer Date Recorded Within the past 12 months, y ou worried that your food would run out before you got money to buy more: Never True 01/15/2023 Within the past 12 months,th e food you bought just didn't last and you didn't have enough money to get more: Never True Transportation Answer Date Recorded In the past 12 months, has l ack of transportation kept you from medical appts, meetings, work or from getting things needed for daily living? No 01/15/2023 Utilities Answer Date Recorded In the past 12 months, has t he electric, gas, oil or water company threatened to shut off services in your home? No 01/15/2023 Depression Answer Date Recorded Patient Health Questionnaire-2 Score 0 08/04/2022 Sex and Gender Information Value Date Recorded Sex Assigned at Male 01/26/2022 10:31 AM EDT Legal Sex Male 10:31 AM EDT Gender Identity Male 01/26/2022 10:31 AM EDT Sexual Orientation Straight 01/26/2022 10 :31 AM EDT documented as of this encounter Plan of Treatment Upcoming Encounters Date Type Department Care Team (Late st Contact Info) Description 05/18/2024 10:00 AM EST Office Visit [facility] ADULT DENTAL [address] [place] [address] Neptali Palomo, DMD [address] [place] [address] documented as of this encounter Visit Diagnoses Diagnosis Type 2 diabetes mellitus with hyperlipidemia (CMS/HCC) (CMS/HCC) documented in this encounter Additional Health Concerns Assessment Noted Time PHQ-9 Depression Total Score: 0 08/05/19 23 2:13 PM EDT documented as of this encounter
--- OUTSIDE RECORDS SUMMARY | 2024-04-21 14:04 | XMS_ITS | Encounter Summary ---
Author Organization [employer] Address [address] [place] [address] Care Team Providers Care Rebar Bender Name Role Phone Unavailable Primary Care Provider Unavailabl e Reason for Visit * Reason Comments Med Refill Encounter Details Date Type Department Care Team ([facility] st Contact Info) Description 11/04/2023 Refill [facility] MED[facility]INE [address] [place], [place] [phone] Payal Walker, ANP [address] [place] [address] Type 2 diabetes mellitus with hyperlipidemia (CMS/HCC) ([facility]) Social History Tobacco Use Types Packs/Day Years [...] Description 05/18/2024 10:00 AM EST Office Visit [facility] ADULT DENTAL [address] [place] [address] Neptali Palomo, DMD [address] [place] [address] documented as of this encounter Visit Diagnoses Diagnosis Type 2 diabetes mellitus with hyperlipidemia (CMS/HCC) (CMS/HCC) documented in this encounter Additional Health Concerns Assessment Noted Time PHQ-9 Depression Total Score: 0 08/05/19 23 2:13 PM EDT documented as of this encounter
--- OUTSIDE RECORDS SUMMARY | 2024-04-21 14:04 | XMS_ITS | Encounter Summary ---
Author Organization [employer] Address [address] [place] [address] Care Team Providers Care Hand Inserter Operator Name Role Phone Payal Walker BINDU Primary Care Provider [phone] Encounter Details Date Type Department Care Team (Late st Contact Info) Description 02/16/2023 Abstract [facility] MEDICINE [address] [place], [place] [phone] Mary Kate Emmanuel Social History Tobacco Use Types Packs/Day Years [...] 05/18/2024 10:00 AM EST [facility] [address] [place], [place] [phone] Dewey Neptali, DMD [address] [place] [address] documented as of this encounter Procedures Procedure Name Priority Date/Time Associated Diagnosis Comments COLONOSCOPY Routine 05/01/2016 documented in this encounter Results * Colonoscopy (05/01/2016) Colonoscopy Normal Normal Narrative Mary Kate Emmanuel - 05/01/2016 Repeat in 10 years us Historical Provider HEALTH MAINTENANCE Final Result documented in this encounter Visit Diagnoses Not on filedocumented in this encounter Additional Health Concerns Assessment Noted Time PHQ-9 Depression Total Score: 0 08/05/19 23 2:13 PM EDT documented as of this encounter Care Teams Hand Inserter Operator Relationship Specialty Start Date End Date Payal Walker ANP [address] [place] [id number] PCP - General Family Medicine 11/20/21 08/04/23 documented as of this encounter
--- OUTSIDE RECORDS SUMMARY | 2024-04-21 14:04 | XMS_ITS | Clinical Summary ---
Author Organization [employer] Address [address] [facility] [address] [place] [address] Care Team Providers Care Audio Operator Name Role Phone Unavailable Primary Care Provider Unavailabl e Allergies Active Allergy Reactions Criticality Noted Date Comments Codeine Palpitations High 12/25/2014 Medications cholecalciferol (Vitamin D-3) 50 MCG (1999 UT) capsule Take 1 capsule by mouth in the morning. 07/23/19 22 Active clonazePAM (KlonoPIN) 1 MG tablet TOME RHYS TABLETA TODOS LOS D AL ACOSTARSE 04/07/19 23 Active FLUoxetine (PROzac) 40 MG capsule Take 1 capsule by mouth at bed time. Active fluticasone (Flonase) 50 MCG/ACT nasal spray Administer 2 sprays into affected nostril(s) at bed time. 10/25/19 22 Active gabapentin (Neurontin) 600 MG tablet Take 1 tablet by mouth at bed time. Active ibuprofen 800 MG tablet Take 1 tablet by mouth every 8 (eight) hours. 07/23/19 22 Active glucose blood (FREESTYLE LITE) test stripIndications:T ype 2 diabetes mellitus with hyperlipidemia (CMS/HCC) (CMS/FORMERLY [facility]) Use 1 by To Skin route once daily 100 each 3 05/14/19 23 Active Blood Glucose Monitoring Suppl (FreeStyle Lite) w/Device kitIndications:Typ e 2 diabetes mellitus without complication, unspecified whether mcc insulin use (CMS/FORMERLY [facility]) 1 each before breakfast, before lunch, and before evening meal. 1 kit 07/11/19 23 Active Continuous Blood Gluc Plug Paster (FreeStyle Agatha 2 Potlatch) deviceIndications: Type 2 diabetes mellitus with hyperlipidemia (CMS/HCC) (CMS/FORMERLY [facility]) 1 each 5 (five) times a day. 1 each 07/28/19 23 Active Continuous Blood Gluc Sensor (FreeStyle Agatha 2 Sensor) miscIndications:Ty pe 2 diabetes mellitus with hyperlipidemia (CMS/HCC) ([facility]/FORMERLY [facility]) 1 each every 14 (fourteen) days. 6 each 3 07/28/19 23 Active cetirizine (ZyrTEC) 10 MG tabletIndications: Allergic rhinitis, unspecified seasonality, unspecified trigger Take 1 tablet (10 mg) by mouth in the morning. 90 tablet 1 08/05/19 23 Active tadalafil (Cialis) 20 MG tablet Take 1 tablet by mouth if needed each day. Active albuterol 108 (90 Base) MCG/ACT inhalerIndications :Mild intermittent asthma in adult without complication 2 puffs every 4-6 hours as needed for wheezing, asthma 18 g 2 08/18/19 23 Active Na Sulfate-K Sulfate-Mg Sulf 17.5-3.13-1.6 GM/177ML solution PLEASE SEE ATTACHED FOR DETAILED DIRECTIONS 08/19/19 23 Active omeprazole (PriLOSEC) [address] capsuleIndications :GERD without esophagitis TOME RHYS CAPSULA TODOS LOS DIX[place] BEFORE A MEAL 90 capsule 1 11/03/19 23 Active tamsulosin (Flomax) 0.4 MG 24 hr capsule TAKE 1 CAPSULE BY MOUTH EVERY DAY 1/2 HOURS FOLLOWING THE SAME MEAL EACH DAY FOR URINARY SYMPTOMS 90 capsule 02/23/20 23 Active aspirin ([facility] Aspirin Adult Low Dose) 81 MG chewable tablet Chew 1 tablet my mouth every morning 90 tablet 1 02/24/20 23 Active hydrOXYzine HCl (Atarax) 10 MG tablet TAKE 1 TABLET BY MOUTH EVERY DAY as needed 90 tablet 02/24/20 23 Active empagliflozin (Jardiance) 25 MG TAKE 1 TABLET BY MOUTH EVERY MORNING 90 tablet 1 04/27/19 24 Active atorvastatin (Lipitor) 80 MG tablet TAKE 1 TABLET BY MOUTH EVERY DAY 90 tablet 1 06/07/19 24 Active lisinopril 10 MG tabletIndications: Primary hypertension TAKE 1 TABLET BY MOUTH EVERY MORNING 90 tablet 1 06/07/19 24 Active Additional Information Patient not taking.Reported on 01/31/2024 metFORMIN (Glucophage) 500 MG tabletIndications: Type 2 diabetes mellitus with hyperlipidemia (CMS/HCC) ([facility]) TAKE 1 TABLET BY MOUTH DAILY WITH MORNING MEAL AND TAKE 2 TABLETS BY MOUTH DAILY WITH EVENING MEAL. 270 tablet 07/22/19 Active Trulicity 0.75 MG/0.5ML solution pen-injector INYECTE 0.75 MG (0.5 ML) POR V A SUBCUT CED SEMANALMENTE 11/01/19 Active Lantus SoloStar 100 UNIT/ML pen INJECT 5 UNIT (0.05 ML) SUBCUTANEOUSLY EVERY EVENING FOR 30 DAYS 01/17/20 Active B-D ULTRAFINE III SHORT PEN 31G X 8 MM misc USE TO INJECT INSULIN ONCE A DAY 01/18/20 Active lisinopril 20 MG tablet Take 20 mg by mouth Once per day. Active Active Problems Problem Noted Date Diagnosed Date Abdominal bloating 02/28/2024 Epigastric pain 02/28/2024 Stroke 08/17/2022 Assessment & Plan (08/17/2022 6:42 PM EDT): Pt dxed w possible stroke in 08/11/2022 but brain MRI with no obvious acute ischemic findings -did have microvascular changes -MRI brain w/o contrast 08/11/2022: mild commensurate prominence of the ventricles consistent with diffuse volume loss + findings of microvascular ischemic changes -CTA head/neck 09/11/2022: 4 mm hypoenhancement within left paramedian pituitary gland may reflect microadenoma and further can be evaluated with sellar protocol contrast enhanced MRI and w pituitary function test, multifocal calcific plaque along the carotid siphons contributing to mild bl supraclinoid stenosis . 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 ----to continue care w neurologist -states is following w cardiology for valvular abnormality -from chart review hx of aortic valve calcification-pt states will schedule a f up visit w his cards at [facility] Pituitary microadenoma 08/17/2022 Assessment & Plan (08/17/2022 6:41 PM EDT): -CTA head/neck 09/11/2022: 4 mm hypoenhancement within left paramedian pituitary gland may reflect microadenoma and further can be evaluated with sellar protocol contrast enhanced MRI and w pituitary function test, multifocal calcific plaque along the carotid siphons contributing to mild bl supraclinoid stenosis . 2 mm left posterior communicating artery infundibular origen vs aneurysm -referred today x MRI pituitary gland and hormones to further eval -pt will come this week for labs -will f images and lab results w PCP -apt schedule today Increased follicle stimulating hormone (FSH) lev el 07/27/2022 Anxiety 04/16/2022 GERD without esophagitis 04/16/2022 HTN (hypertension) 04/16/2022 Vitamin D deficiency 04/16/2022 Hypoglycemia 04/16/2022 Palpitations 04/16/2022 Hyperlipemia 08/03/2018 Type 2 diabetes mellitus without complication Assessment & Plan (08/17/2022 6:44 PM EDT): Pt reports taking metformin only 500 mg daily -despite was px 500 mg in am and 1000 in pm -states 2 tab cause GI symptoms--advised at least to take med BID x now and continue jardiance -will check to eval x comorbidiites -hb1AC --to f w PCP in 4 weeks Obstructive sleep apnea syndrome 09/27/2017 Periodic limb movement disorder 09/27/2017 Systolic murmur 09/27/2017 Erectile dysfunction 09/27/2017 Hiatal hernia 11/03/2016 Mixed anxiety and depressive disorder 11/03/2016 Adenoma of large intestine 05/05/2016 Overview (02/28/2024): repeat screening colonoscopy in 2021 Fracture of corpus cavernosum penis 09/24/2015 Overview (04/16/2022): [facility] Elevated liver function tests 12/25/2014 Overview (04/16/2022): Liver U/S 05/13/16, borderline ehcogenic. Mild nodularity increases suspicion for cirrhosis Encounters Date Type Department Care Team Description 04/14/2024 Refill [facility] [address] [place] [address] Payal Walker ANP Type 2 diabetes mellitus with hyperlipidemia (CMS/HCC) ([facility]/HCC) 04/13/2024 9:00 AM EST Office Visit [facility] [address] [place] [address] Neptali Palomo, JESSICA Full coverage crown needed for root canal-treated tooth (Primary Dx); Full coverage crown needed for tooth at risk for fracture 03/23/2024 2:00 PM EST Office Visit [facility] [address] [place] [address] Neptali Palomo, DMD Full coverage crown needed for tooth at risk for fracture (Primary Dx); Full coverage crown needed for root canal-treated tooth 02/28/2024 2:00 PM EST Office Visit [facility] [address] [place] [address] Neptali Palomo, JESSICA Full coverage crown needed for root canal-treated tooth (Primary Dx) 01/31/2024 1:00 PM EST Office Visit [facility] [address] [place] [address] Neptali Palomo, DMD Full coverage crown needed for root canal-treated tooth (Primary Dx); Full coverage crown needed for tooth at risk for fracture 01/28/2024 Refill [facility] [address] [place] [address] Payal Walker ANP 01/28/2024 Refill [facility] [address] [place] [address] Payal Walker ANP Type 2 diabetes mellitus with hyperlipidemia ([facility]/HCC) ([facility]) from Last 3 Months Immunizations Name Administration Dates Next Due Hep B, adult 2021,08/04/2021 Influenza injectable quadriv alent IIV4 with preservative 12/12/2018 Influenza injectable quadriv alent preservative free 04/14/2022,01/02/2021,02/03/2020 Influenza, IIV3, injectable 02/24/2016, 5 Moderna Covid-19 Vaccine 12+ 02/28/2021,07/06/19 21,06/04/2020 Moderna Covid-19 Vaccine 6+ Bivalent 04/16/2022 Tdap 11/01/2020 Family History Medical History Relation Name Comments Stroke Brother Diabetes Father Stroke Father Diabetes Mother Relation Name Status Comments Brother Father Mother Social History Tobacco Use Types Packs/Day Years Used Date Smoking Tobacco: Former Cigarettes Smokeless Tobacco: Never Tobacco Cessation:Counseling Given: Not Answered Alcohol Use Standard Drinks/Week Comments Not Currently [...] Orientation Straight 01/26/2022 10 :31 AM EDT Last Filed Vital Signs Vital Sign Reading Time Taken Comments Blood Pressure 110/74 03/23/2024 2:30 PM EST Pulse 65 12/01/2023 1:45 PM EDT Temperature - - Respiratory Rate 24 08/17/2022 12:59 PM EDT Oxygen Saturation - - Inhaled Oxygen Concentration - - Weight 80.3 kg (177 lb) 08/17/2022 12:59 PM EDT Height 172.7 cm (5' 8 ) 08/17/2022 12:59 PM EDT Body Mass Index 26.91 08/17/2022 12:59 PM EDT Plan of Treatment Upcoming Encounters Date Type Department Care Team (Late st Contact Info) Description 05/18/2024 10:00 AM EST Office Visit [facility] [address] [place] [address] Neptali Palomo, DMD [address] [place] [address] Health Maintenance Due Date Last Done Comments CT Colonography 1961 FIT DNA/Cologuard 1961 FIT 1961 FOBT 1961 HIV Screening 1961 Sigmoidoscopy 1961 Pneumococcal Vaccine: Pediatrics (0 to 5 Years) and At-Risk Patients (6 to 64 Years) (1 of 2 - PCV) 09/09/1967 Diabetes: Foot Exam 09/09/1971 Eye Exam 09/09/1971 Alcohol/Substance Use Screening 1973 Zoster Vaccines (1 of 2) 09/09/2011 RSV Patients and Patients Aged 60 years or older (1 - Risk 60-74 years 1-dose series) 2021 Hepatitis B Vaccines (3 of 3 - 19+ 3-dose series) 02/04/2022 2021, 08/04/2021 Diabetes: Hemoglobin A1C 11/19/2022 023, 06/04/2020, 01/29/2020 Depression Screening 08/05/2023 08/04/2022, 08/05/19 23 SDOH Screening 08/05/2023 08/04/2022 Diabetes: Urine Protein Screening 08/20/2023 08/19/2022, 07/24/2021, 06/04/2020, Additional history exists Lipid Panel 08/20/2023 08/19/2022, 0410/2021, 07/16/2020, Additional history exists COVID-19 Vaccine ( season) 2023 04/16/2022, 02/28/2021, 07/05/2020, Additional history exists Dental Oral Exam 05/31/2024 12/01/2023, 07/2019, 02/02/2018, Additional history exists Dental Prophylaxis 05/31/2024 12/01/2023, 0 10/23/2020, 02/12/2020, Additional history exists Dental X-Ray: Bitewings 12/01/2024 12/01/19 24, 02/01/2023, 02/01/2020, Additional history exists Tobacco Screening 04/13/2025 04/13/2024 Colonoscopy 05/01/2026 05/01/2016 Colorectal Cancer Screening 05/01/2026 Dental X-Ray: Full Mouth 12/01/2026 12/01/2023, 0303/2017 DTaP/Tdap/Td Vaccines (2 - Td or Tdap) 11/01/2030 11/01/2020 Hepatitis C Screening Completed 07/16/2020 Influenza Vaccine Completed 02/09/2024, , 01/02/2021, Additional history exists HIB Vaccines Aged Out No longer eligi ble based on patient's age to complete this topic HPV Vaccines Aged Out No longer eligi ble based on patient's age to complete this topic Hepatitis A Vaccines Aged Out No long er eligible based on patient's age to complete this topic IPV Vaccines Aged Out No longer eligi ble based on patient's age to complete this topic Meningococcal Vaccine Aged Out No marlene elaine eligible based on patient's age to complete this topic RSV under 20 months Aged Out No longe r eligible based on patient's age to complete this topic Rotavirus Vaccines Aged Out No longer eligible based on patient's age to complete this topic Procedures Procedure Name Priority Date/Time Associated Diagnosis Comments ADJUNCTIVE GENERAL SERVICES - PROFESSIONAL VISITS - CASE PRESENTATION, SUBSEQUENT TO DETAILED AND EXTENSIVE TREATMENT PLANNING Routine 04/13/2024 9:00 AM EST Full coverage crown needed for tooth at risk for fracture Full coverage crown needed for root canal-treated tooth 18 CROWN - PORCELAIN/CERAMIC Routine 04/13/2024 9:00 AM EST Full coverage crown needed for tooth at risk for fracture 19 CROWN - PORCELAIN/CERAMIC Routine 04/13/2024 9:00 AM EST Full coverage crown needed for root canal-treated tooth ADJUNCTIVE GENERAL SERVICES - PROFESSIONAL VISITS - CASE PRESENTATION, SUBSEQUENT TO DETAILED AND EXTENSIVE TREATMENT PLANNING Routine 03/23/2024 2:00 PM EST Full coverage crown needed for tooth at risk for fracture Full coverage crown needed for root canal-treated tooth 19,18 CROWN PREP Routine 03/23/2024 2:00 PM EST Full coverage crown needed for tooth at risk for fracture Full coverage crown needed for root canal-treated tooth 18 RESTORATIVE - OTHER RESTORATIVE SERVICES - CORE BUILDUP, INCLUDING ANY PINS WHEN REQUIRED Routine 03/23/2024 2:00 PM EST Full coverage crown needed for tooth at risk for fracture ADJUNCTIVE GENERAL SERVICES - PROFESSIONAL VISITS - CASE PRESENTATION, SUBSEQUENT TO DETAILED AND EXTENSIVE TREATMENT PLANNING Routine 02/28/2024 2:00 PM EST Full coverage crown needed for root canal-treated tooth ADJUNCTIVE GENERAL SERVICES - UNCLASSIFIED TREATMENT - PALLIATIVE TREATMENT OF DENTAL PAIN - PER VISIT Routine 02/28/2024 2:00 PM EST Full coverage crown needed for root canal-treated tooth 19 CROWN PREP Routine 02/28/2024 2:00 PM EST Full coverage crown needed for root canal-treated tooth ADJUNCTIVE GENERAL SERVICES - PROFESSIONAL VISITS - CASE PRESENTATION, SUBSEQUENT TO DETAILED AND EXTENSIVE TREATMENT PLANNING Routine 01/31/2024 1:00 PM EST Full coverage crown needed for root canal-treated tooth Full coverage crown needed for tooth at risk for fracture 3 CROWN - PORCELAIN/CERAMIC Routine 01/31/2024 1:00 PM EST Full coverage crown needed for tooth at risk for fracture 5 CROWN - PORCELAIN/CERAMIC Routine 01/31/2024 1:00 PM EST Full coverage crown needed for root canal-treated tooth PROPHYLAXIS - ADULT Routine 12/01/2023 2 :00 PM EDT DIAGNOSTIC - DIAGNOSTIC IMAGING - INTRAORAL - COMPREHENSIVE SERIES OF RADIOGRAPHIC IMAGES Routine 12/01/2023 2:00 PM EDT PERIODIC ORAL EVALUATION - ESTABLISHED PATIENT Routine 12/01/2023 2:00 PM EDT ALBUMIN, RANDOM URINE W/CREATININE Routine 08/19/2022 9:03 AM EDT HEMOGLOBIN A1C Routine 08/19/2022 9:03 AM EDT LIPID PANEL, STANDARD Routine 08/19/2022 9:03 AM EDT ZZZ HISTORICAL HEPATITIS C AB W/REFL TO HCV RNA, QN, PCR Routine 07/16/2020 9:56 AM EDT HM COLONOSCOPY Routine 05/01/2016 from Last 3 Months or Most Recently Relevant to Health Maintenance Results * Albumin, Random Urine W/Creatinine (08/19/2022 9:03 AM EDT) Creatinine, Urine 89.78 mg/dL [facility] Microalbumin Urine 59.0 mg/L [facility] Microalbum Creatinine Ratio Ur 65.7 ug/mg cr [facility] Comment:Albumin/Creatinine R atio Reference Ranges: Normal: < 30 ug/mg creatinine Microalbuminuria: 30 - 300 ug/mg creatinineClinical Albuminuria: > 300 ug/mg creatinine 08/19/2022 9:03 AM EDT 08/19/2022 11:06 AM EDT us [facility] External Provider LAB URI NE ORDERABLES Final Result [facility] [address] [place] [phone] * Hemoglobin A1c (08/19/2022 9:03 AM EDT) Hemoglobin A1c 7.3 % [facility] Comment:Hemoglobin A1C Refer ence Range Adults: 4.8 - 6.0 % Non diabetic: < 6.0 % Goal: < 7.0 %Additional Action Suggested: > 8.0 %Note: Hemoglobin A1c results are invalid for patients with abnormal amounts of HbF. Blood transfusions may impact the HbA1c concentration in the patient sample. Estimated Average Glucose 163 mg/dL [facility] Comment:eAG = Estimated ave rage glucose which is %A1C expressed asaverage glucose, using the formula of the E1I-UcjgmonChzqgrn Glucose study (ADAG), Diabetes Care, Vol.31,#8,2007 08/19/2022 9:03 AM EDT 08/19/2022 11:12 AM EDT [facility] External Provider LAB BLO OD ORDERABLES Final Result Performing Organization Address [facility]/ZIP Co de Phone Number [facility] [address] [place] [phone] * Lipid Panel, Standard (08/19/2022 9:03 AM EDT) Triglycerides 91 mg/dL [facility] Comment:Desirable Triglyceri de: less than 150 mg/dLBorderline High Triglyceride 150-199 mg/dLHigh Triglyceride: 200-499 mg/dLVery High Triglyceride: greater than or equal to 5OO mg/dL Cholesterol 186 mg/dL [facility] Comment:Desirable Cholestero l: less than 200 mg/dLBorderline High Cholesterol: 200-239 mg/dLHigh Cholesterol: greater than 239 mg/dL LDL Cholesterol Calculated 129 mg/dl [facility] Comment:Desirable LDL: less than 100 mg/dLNear Optimal/Above Optimal LDL: 110- 129 mg/dLBorderline High LDL: 130-159 mg/dLHigh LDL: 160-189 mg/dLVery High LDL: greater than or equal to 190 mg/dL HDL Cholesterol 39 mg/dL [facility] Comment:Desirable HDL: great er than 40 mg/dL Note: This HDL assay may give artificially low results in patients with liver disease. 08/19/2022 9:03 AM EDT 08/19/2022 11:12 AM EDT [facility] External Provider LAB BLO OD ORDERABLES Final Result Performing Organization Address [facility]/ZIP Co de Phone Number [facility] [address] [place] [address] [phone] * HEPATITIS C AB W/REFL TO HCV RNA, QN, PCR (07/16/2020 9:56 AM EDT) HEPATITIS C ANTIBODY NON-REACT DEN NON-REACT DEN [facility] INDEX 0.02 <1.00 [facility] Comment: ?? HCV antibody was non-reactive. There is no laboratory ?? evidence of HCV infection. ?? In most cases, no further action is required. However, if recent HCV exposure is suspected, a test for HCV RNA (test code 41290) is suggested. ?? For additional information please refer to [email or web address]/faq/BFU62x7 (This link is being provided for informational/ educational purposes only.) ?? 07/16/2020 9:56 AM EDT Davida FERNANDO HISTORICAL/NON ORDERABLE LABS Final Result [facility] [address] * Colonoscopy (05/01/2016) Colonoscopy Normal Normal Narrative Lien Mary Kate - 05/01/2016 Repeat in 10 years Historical Provider MD HEALTH MAINTENANCE Final Result from Last 3 Months or Most Recently Relevant to Health Maintenance Insurance [facility] [address] STANDARD MEDICARE DENTAL-[facility] [address] MEDICAID STAND [place] [phone]
--- OUTSIDE RECORDS SUMMARY | 2024-04-21 14:04 | XMS_ITS | Encounter Summary ---
Author Organization [employer] Address [address] [facility] 7t [place] [address] Care Team Providers Care Lawnmower Mechanic Name Role Phone Unavailable Primary Care Provider Unavailabl e Reason for Visit * Reason Comments Lindrith Patient presents tod ay for crown delivery Alma PERERA Encounter Details Date Type Department Care Team ([facility] st Contact Info) Description 04/13/2024 9:00 AM EST Office Visit [facility] ADULT DENTAL [address] [place] [address] Neptali Palomo, DMD [address] [place] [address] Full coverage crown needed for root canal-treated tooth (Primary Dx); Full coverage crown needed for tooth at risk for fracture Social History Tobacco Use Types Packs/Day Years [...] AM EDT documented as of this encounter Progress Notes * Neptali Palomo DMD - 04/13/2024 9:00 AM EST Patient ID: Jessica Amin is a 63 y.o. male. Time Out: Timeout Date: 04/13/24, Timeout Time: 0954 (Lindrith delivery # 18,19) Location: [facility] Tooth: #18 and #19 Procedure: Lindrith Verified the above with patient, assistant center director, and provider. Confirmed via patient's chart, intraorally and by radiographs. Asian Art Curator: Yes. Language: Yoruba. Asian Art Curator's Name: Alma PERERA Chief Complaint Patient presents with Lindrith Patient presents today for crown delivery Alma RDA Medical Hx: Vitals: There were no vitals taken for this visit. Medications, Med Hx reviewed with patient and updated in chart. Consent Obtained: The risks, benefits, indications, potential complications, and alternatives were explained to the patient and informed consent was obtained with good understanding. Treatment Provided: Dental procedures in this visit D2740 - CROWN - PORCELAIN/CERAMIC 19 (Completed) Service provider: Neptali Palomo DMD Billing provider: Neptali Palomo DMD D2740 - CROWN - PORCELAIN/CERAMIC 18 (Completed) Service provider: Neptali Palomo DMD Billing provider: Neptali Palomo DMD D9450 - ADJUNCTIVE GENERAL SERVICES - PROFESSIONAL VISITS - CASE PRESENTATION, SUBSEQUENT TO DETAILED AND EXTENSIVE TREATMENT PLANNING (Completed) Service provider: Neptali Palomo DMD Billing provider: Neptali Palomo DMD Pt in office a day before delivery appt due to dislodged #18 temp crown and associated sensitivity Pt states that he has not eaten yet today and his glucose is low (at 92 mg/dL) Pt given 2 boxes of apple juice and felt much better (increased to 102 mg/dL) Topical: 20% Benzocaine Anesthesia: 2% Lidocaine (Xylocaine) w/ 1:100,000 epinephrine Number of Cartridges: 1 Injection Type: Inferior alveolar nerve block and Long buccal nerve block Confirmed profound anesthesia. Isolation: high speed suction and cotton rolls Removed Provisional and cleaned excess cement, pumiced tooth as needed. Tried on final sikh Verified interproximal contacts and margins BW taken to confirm margins and contacts Occlusion adjusted as needed Tooth Treatment: Gluma applied Cemented with: Relyx Unicem Cleaned excess cement, flossed Patient satisfied with comfort and esthetics. POI given. Patient discharged alert, oriented, and in stable condition NV: Min Per Diem: Alma Frias Dentist: Neptali Palomo DMD documented in this encounter Plan of Treatment Upcoming Encounters Date Type Department Care Team (Late st Contact Info) Description 05/18/2024 10:00 AM EST Office Visit [facility] ADULT D[facility]AL [address] [place] [address] Neptali Palomo DMD [address] [place] [address] documented as of this encounter Procedures Procedure Name Priority Date/Time Associated Diagnosis Comments 18 CROWN - PORCELAIN/CERAMIC Routine 04/13/2024 9:00 [...] coverage crown needed for root canal-treated tooth documented in this encounter Visit Diagnoses Diagnosis Full coverage crown needed for root canal-treated tooth- Primary Full coverage crown needed for tooth at risk for fracture documented in this encounter Additional Health Concerns Assessment Noted Time PHQ-9 Depression Total Score: 0 08/05/19 23 2:13 PM EDT documented as of this encounter
--- OUTSIDE RECORDS SUMMARY | 2024-04-21 14:04 | XMS_ITS | Encounter Summary ---
Author Organization [employer] Address [address] [place] [address] Care Team Providers Care Acupuncture Physician Name Role Phone Unavailable Primary Care Provider Unavailabl e Reason for Visit * Reason Comments Med Refill Encounter Details Date Type Department Care Team ([facility] st Contact Info) Description 11/01/2023 Refill [facility] MEDICINE [address] [place], [place] [phone] Payal Walker, ANP [address] [place] [address] Primary hypertension Social History Tobacco Use Types Packs/Day Years [...] Description 05/18/2024 10:00 AM EST Office Visit [facility] ADULT DENTAL [address] [place] [address] Neptali Palomo, DMD [address] [place] [address] documented as of this encounter Visit Diagnoses Diagnosis Primary hypertension Unspecified essential hypertension documented in this encounter Additional Health Concerns Assessment Noted Time PHQ-9 Depression Total Score: 0 08/05/19 23 2:13 PM EDT documented as of this encounter
--- OUTSIDE RECORDS SUMMARY | 2024-04-21 14:04 | XMS_ITS | Encounter Summary ---
Author Organization [email or web address] Address [address] [facility] [address] [place] [address] Care Team Providers Care Commercial Loan Collection Officer Name Role Phone Unavailable Primary Care Provider Unavailabl e Reason for Visit * Reason Comments Med Refill Encounter Details Date Type Department Care Team ([facility] st Contact Info) Description 10/22/2023 Refill [facility] MEDICINE [address] [place], [place] [phone] Payal Walker, ANP [address] [place] [address] Type 2 diabetes mellitus with hyperlipidemia (CMS/HCC) ([facility]) Social History Tobacco Use Types Packs/Day Years [...] Description 05/18/2024 10:00 AM EST Office Visit [facility] ADULT DENTAL [address] [place] [address] Neptali Palomo, DMD [address] [place] [address] documented as of this encounter Visit Diagnoses Diagnosis Type 2 diabetes mellitus with hyperlipidemia (CMS/HCC) (CMS/HCC) documented in this encounter Additional Health Concerns Assessment Noted Time PHQ-9 Depression Total Score: 0 08/05/19 23 2:13 PM EDT documented as of this encounter
--- OUTSIDE RECORDS SUMMARY | 2024-04-21 14:04 | XMS_ITS | Encounter Summary ---
Author Organization [email or web address] Address [address] [facility] [address] [place] [address] Care Team Providers Care Wood Room Hand Name Role Phone Unavailable Primary Care Provider Unavailabl e Reason for Visit * Reason Comments Med Refill Encounter Details Date Type Department Care Team ([facility] st Contact Info) Description 01/28/2024 Refill [facility] MEDICINE [address] [place], [place] [phone] Payal Walker, ANP [address] [place] [address] Social History Tobacco Use Types Packs/Day Years [...] Description 05/18/2024 10:00 AM EST Office Visit [facility] ADULT DENTAL [address] [place] [address] Neptali Palomo, DMD [address] [place] [address] documented as of this encounter Visit Diagnoses Not on filedocumented in this encounter Additional Health Concerns Assessment Noted Time PHQ-9 Depression Total Score: 0 08/05/19 23 2:13 PM EDT documented as of this encounter
--- OUTSIDE RECORDS SUMMARY | 2024-04-21 14:04 | XMS_ITS | Encounter Summary ---
Author Organization [employer] Address [address] [facility] [address] [facility] [address] [place] [address] Care Team Providers Care Special Effects Makeup Artist Name Role Phone Unavailable Primary Care Provider Unavailabl e Reason for Visit * Reason Comments Med Refill Encounter Details Date Type Department Care Team ([facility] st Contact Info) Description 01/28/2024 Refill [facility] MEDICINE [address] [place], [place] [phone] Payal Walker, ANP [address] [place] [address] Type 2 diabetes mellitus with hyperlipidemia (CMS/HCC) ([facility]) Social History Tobacco Use Types Packs/Day [...] Description 05/18/2024 10:00 AM EST Office Visit [facility] ADULT DENTAL [address] [place] [address] Neptali Palomo, DMD [address] [place] [address] documented as of this encounter Visit Diagnoses Diagnosis Type 2 diabetes mellitus with hyperlipidemia (CMS/HCC) (CMS/HCC) documented in this encounter Additional Health Concerns Assessment Noted Time PHQ-9 Depression Total Score: 0 08/05/19 23 2:13 PM EDT documented as of this encounter
--- OUTSIDE RECORDS SUMMARY | 2024-04-21 14:04 | XMS_ITS | Encounter Summary ---
Author Organization [email or web address] Address [address] [facility] [address] [place] [address] Care Team Providers Care Medical Records Tech Name Role Phone Payal Walker Primary Care Provider [phone] Reason for Visit * Reason Comments Med Refill Encounter Details Date Type Department Care Team (Late st Contact Info) Description 10/20/[address] [facility] MEDICINE [address] [place], [place] [phone] [facility] [address] [place], [place] [phone] Social History Tobacco Use Types Packs/Day Years Used Date Smoking Tobacco: Former Cigarettes Smokeless Tobacco: Never Alcohol Use Standard Drinks/Week Comments Not Currently 0 (1 standard drink = 0.6 oz pur e alcohol) Depression Answer Date Recorded Patient Health Questionnaire-9 Score 0 08/04/2022 Depression Answer Date Recorded Patient Health Questionnaire-2 [...] Description 05/18/2024 10:00 AM EST Office Visit [facility] CHC ADULT DENTAL [address] [place], [place] [phone] Neptali Palomo, DMD [address] [place], [place] [phone] documented as of this encounter Visit Diagnoses Not on filedocumented in this encounter Additional Health Concerns Assessment Noted Time PHQ-9 Depression Total Score: 0 08/05/19 23 2:13 PM EDT documented as of this encounter Care Teams Medical Records Tech Relationship Specialty Start Date End Date Payal Walker ANP [address] [place] [address] PCP - General Family Medicine 11/20/21 08/04/23 documented as of this encounter
--- OUTSIDE RECORDS SUMMARY | 2024-04-21 14:04 | XMS_ITS | Encounter Summary ---
Author Organization [facility] [facility] Address [address] [facility] [address] [facility] [address] [place] [address] Care Team Providers Care Vibrating Screen Operator Name Role Phone Payal Walker Primary Care Provider [phone] Encounter Details Date Type Department Care Team (Latest Contact Info) Description 02/12/2020 Abstract [facility] CONVERSIONS Dental, Provider, DDS Social History Tobacco [...] Description 05/18/2024 10:00 AM EST Office Visit [facility] CHC ADULT DENTAL [address] [place] [address] Neptali Palomo, DMD [address] [place] [address] documented as of this encounter Visit Diagnoses Not on filedocumented in this encounter Care Teams Vibrating Screen Operator Relationship Specialty Start Date End Date Payal Walker ANP [address] [place] [address] PCP - General Family Medicine 11/20/21 08/04/23 documented as of this encounter
--- OUTSIDE RECORDS SUMMARY | 2024-04-21 14:04 | XMS_ITS | Encounter Summary ---
Author Organization [employer] Address [address] [facility] [address] [place] [address] Care Team Providers Care Apprenticeship Training Representative Name Role Phone Payal Walker BINDU Primary Care Provider [phone] Reason for Visit * Reason Comments Med Refill Encounter Details Date Type Department Care Team (Late st Contact Info) Description 06/25/2023 Refill [facility] MEDICINE [address] [place], [place] [phone] Siena Greenwood MD [address] [place], [place] [phone] GERD without esophagitis Social History Tobacco Use Types Packs/Day Years [...] Description 05/18/2024 10:00 AM EST Office Visit [facility] CHC ADULT DENTAL [address] [place] [address] Neptali Palomo, JESSICA [address] [place] [address] documented as of this encounter Visit Diagnoses Diagnosis GERD without esophagitis Esophageal reflux documented in this encounter Additional Health Concerns Assessment Noted Time PHQ-9 Depression Total Score: 0 08/05/19 23 2:13 PM EDT documented as of this encounter Care Teams Apprenticeship Training Representative Relationship Specialty Start Date End Date Payal Walker ANP [address] [place] [address] PCP - General Family Medicine 11/20/21 08/04/23 documented as of this encounter
--- OUTSIDE RECORDS SUMMARY | 2024-04-21 14:04 | XMS_ITS | Encounter Summary ---
Author Organization [employer] Address [address] [place] [address] Care Team Providers Care Field Operations Farm Manager Name Role Phone Unavailable Primary Care Provider Unavailabl e Reason for Visit * Reason Comments Med Refill Encounter Details Date Type Department Care Team ([facility] st Contact Info) Description 12/09/2023 Refill [facility] MEDICINE [address] [place], [place] [phone] Payal Walker, ANP [address] [place] [address] Type 2 diabetes mellitus with hyperlipidemia (CMS/HCC) ([facility]/HCC); Primary hypertension Social History Tobacco Use Types [...] [facility] ADULT DENTAL [address] [place] [address] Neptali Palomo, DMD [address] [place] [address] documented as of this encounter Visit Diagnoses Diagnosis Type 2 diabetes mellitus with hyperlipidemia (CMS/HCC) ([facility]) Primary hypertension Unspecified essential hypertension documented in this encounter Additional Health Concerns Assessment Noted Time PHQ-9 Depression Total Score: 0 08/05/19 23 2:13 PM EDT documented as of this encounter
--- OUTSIDE RECORDS SUMMARY | 2024-04-21 14:04 | XMS_ITS | Encounter Summary ---
Author Organization [employer] Address [address] [facility] 7t [place] [address] Care Team Providers Care Cable Television Installer Name Role Phone Unavailable Primary Care Provider Unavailabl e Reason for Visit * Reason Comments Leigh Core build up #18 Cr own prep #18,19 Encounter Details Date Type Department Care Team ([facility] st Contact Info) Description 03/23/2024 2:00 PM EST Office Visit [facility] ADULT DENTAL [address] [place] [address] Neptali Palomo, JESSICA [address] [place] [address] Full coverage crown needed for tooth at risk for fracture (Primary Dx); Full coverage crown needed for root canal-treated tooth Social History Tobacco Use Types Packs/Day Years [...] AM EDT documented as of this encounter Last Filed Vital Signs Vital Sign Reading Time Taken Comments Blood Pressure 110/74 03/23/2024 2:30 PM EST Pulse - - Temperature - - Respiratory Rate - - Oxygen Saturation - - Inhaled Oxygen Concentration - - Weight - - Height - - Body Mass Index - - documented in this encounter Progress Notes * Neptali Palomo DMD - 03/23/2024 2:00 PM EST Patient ID: Jessica Amin is a 63 y.o. male. Time Out: Timeout Date: 03/23/24, Timeout Time: 1430 (Core build up #18 and cron prep # 18,19) Location: [facility] Tooth: #18 and #19 Procedure: Leigh Verified the above with patient, campus administrative assistant, and provider. Confirmed via patient's chart, intraorally and by radiographs. Pressure Dispatcher: Yes. Language: Nigerian. Pressure Dispatcher's Name: Alma PERERA Chief Complaint Patient presents with Leigh Core build up #18 Leigh prep #18,19 Medical Hx: Vitals: Blood pressure 110/74. Medications, Med Hx reviewed with patient and updated in chart. Consent Obtained: The risks, benefits, indications, potential complications, and alternatives were explained to the patient and informed consent was obtained with good understanding. Treatment Provided: Dental procedures in this visit D2950 - CORE BUILDUP, INCLUDING ANY PINS WHEN REQUIRED 18 (Completed) Service provider: Neptali Palomo DMD Billing provider: Neptali Palomo DMD D2700.1 - CROWN PREP 19,18 (Completed) Service provider: Neptali Palomo DMD Billing provider: Neptali Palomo DMD D9450 - CASE PRESENTATION, DETAILED AND EXTENSIVE TREATMENT PLANNING (Completed) Service provider: Neptali Palomo DMD Billing provider: Neptali Palomo DMD Pt notes improvement in symptoms following treatment of #19 at last visit. Will proceed with crown today Topical: 20% Benzocaine Anesthesia: 2% Lidocaine (Xylocaine) w/ 1:100,000 epinephrine and 4% Septocaine (Articaine) w/ 1:200,000 epinephrine Number of Cartridges: 1 of each Injection Type: Buccal infiltration and Inferior alveolar nerve block Confirmed profound anesthesia. Isolation: high speed suction, cotton rolls, and cheek guard Prepared tooth for: Ceramic crown Core BU completed- Ionolux Ionofil. Sound buildup from previous visit. As this material is indicated for core BU material and the pt is asymptomatic, elected to leave in place. Gingival Retraction: Cord, Size 000 and 00, soaked in hemodent, two cord technique. Cord removal verified prior to discharge Final Impression taken with: [employer] Body Bite Registration taken with: Krystarin[employer] VPS Provisional fabricated with: Paradigm Temp Material and cemented with: TempBond [place]ade: A3 Lab used: NDX Lab Due Date: 04/10/24 POI given to patient with instructions for homecare, to avoid sticky or crunchy foods, and to call if temp crown becomes dislodged. All questions answered. Patient tolerated procedure well, and was discharged alert, oriented, and in stable condition. NV: #18,19 crown marker delivery: Alma Hu Dentist: Neptali Palomo DMD documented in this encounter Plan of Treatment Upcoming Encounters Date Type Department Care Team (Late st Contact Info) Description 05/18/2024 10:00 AM EST Office Visit [facility] ADULT DENTAL [address] [place] [address] Neptali Palomo DMD [address] [place] [address] documented as of this encounter Procedures Procedure Name Priority Date/Time Associated Diagnosis Comments 19,18 CROWN PREP Routine 03/23/2024 2:00 PM [...] Diagnoses Diagnosis Full coverage crown needed for tooth at risk for fracture- Primary Full coverage crown needed for root canal-treated tooth documented in this encounter Additional Health Concerns Assessment Noted Time PHQ-9 Depression Total Score: 0 08/05/19 23 2:13 PM EDT documented as of this encounter
== END 2024-04-21 12:53 | disposition home or self-care (01) ==
PROVIDERS: PCP Nurse Practitioner Family; Visit Provider Nurse Practitioner Adult Health
DX: E11.8 Type 2 diabetes mellitus with unspecified complications (principal)
CPT/HCPCS: 99214; G2211

== ENCOUNTER → 2024-04-21 11:53 | Outpatient (BNVA) | payer MEDICARE, MEDICAID, SELFPAY | PROVIDERS: PCP Nurse Practitioner Family; Visit Provider Nurse Practitioner Adult Health | DX: E11.69 Type 2 diabetes mellitus with other specified complication (principal); E11.21 Type 2 diabetes mellitus with diabetic nephropathy; K85.90 Acute pancreatitis without necrosis or infection, unspecified; K85.30 Drug induced acute pancreatitis without necrosis or infection; T38.89 Poisoning by, adverse effect of and underdosing of other hormones and synthetic substitutes; Z79.4 Long term (current) use of insulin | CPT/HCPCS: 82947; 99212 ==

== ENCOUNTER 2024-05-08 09:12 | Outpatient (AMB) | payer MEDICARE, MEDICAID, SELFPAY ==
--- NOTE | 2024-05-08 10:29 | MHC.AMDMED ---
Intake Intake Visit Reasons: 60 min, pump info Coin Machine Service Repairer Required: Yes Coin Machine Service Repairer Language: Intravenous Therapy Nurse Name: Camron [id number] Accompanied by: Self / Same As Patient Allergies codeine [CODEINE] Allergy (Intermediate, Verified 04/21/24 12:43) TACHYCARDIA HPI Comprehensive Diabetes Asmnt Most Recent Diabetes Results: Hemoglobin A1c TNP % 02/20/19 Microalb/Creat Ratio 51.4 ug/mg cr (<30) H 08/09/23 Cholesterol 264 mg/dL (<200) H 03/21/24 HDL Cholesterol 47 mg/dL (>40) 03/21/24 Triglycerides 136 mg/dL (<150) 03/21/24 Creatinine 0.90 mg/dL (0.5-1.4) 03/23/24 Blood Urea Nitrogen 18 mg/dL (9-16) H 03/21/24 Sodium 138 mmol/L (135-145) 03/21/24 Potassium 3.5 mmol/L (3.3-5.1) 03/21/24 Chloride 103 mmol/L (96-108) 03/21/24 Carbon Dioxide 28 mmol/L (22-29) 03/21/24 Calcium 9.5 mg/dL (8.4-10.2) 03/21/24 AST 22 U/L (5-37) 03/21/24 ALT 30 U/L (0-40) 03/21/24 Total Protein 8.0 g/dL (6.5-8.0) 03/21/24 Albumin 4.3 g/dL (3.5-5.0) 03/21/24 [facility] Medical History Palpitations Pancreatitis Arthritis GERD (gastroesophageal reflux disease) CVA (cerebral vascular accident) Microalbuminuric diabetic nephropathy Type II diabetes with group home use of insulin Erectile dysfunction Vitamin D deficiency Multinodular thyroid Other and unspecified hyperlipidemia Essential hypertension Aortic valve calcification Surgical History History of esophagogastroduodenoscopy (EGD) H/O colonoscopy Family History Father Stroke Brother Stroke Mother Diabetes Social History Household Members: Spouse Housing: House Alcohol intake: never Patient Tobacco Use Status: Former Tobacco user e-Cigarette/Vaping Use: Never Used service: No Current occupational status: disabled Cognitive needs: No Hearing needs: No Vision needs: Yes Assessment & Plan Assessment & Plan (1) Type II diabetes with group home use of insulin: Code(s): E11.9 - Type 2 diabetes mellitus without complications; Z79.4 - assistant terminal manager (current) use of insulin Qualifiers: Diabetes mellitus complication status: with kidney complications Diabetes mellitus complication detail: with nephropathy Qualified Code(s): E11.21 - Type 2 diabetes mellitus with diabetic nephropathy; Z79.4 - assistant terminal manager (current) use of insulin Plan: Pump Assessment: Type of DM: type 2 Dx at age: 55 y/o Previous DKA: denies Current Insulin Rx: MDI Patient takes insulin as prescribed: yes Patient? checks BG with Agatha 3 Downloaded meter today yes, average glucose over past 14 days 181 mg/dL above target: 44% at target:56% below target:0% Patient? reports glycemic control as: fair Most recent Hgb A1C: 03/23/24 7.7% Frequency of low BG: rarely Low BG treatment: juice Frequency of high BG: Daily Does patient check Ketones? Will review at next visit Has pt been on a pump in the past? No Reviewed insulin pump basics today with Patient. Explained pros and cons of insulin pumps. Showed pt various pumps, infusion sets, and cgms currently available. Reviewed need to wear pump 24/7 and need to change infusion set every 3 days. Also stressed importance of frequent BG checks, 4x daily minimum or use pump that is integrated with CGM.? TDD:51 units Patient demonstrated motivation for continued insulin pump education and understands the need to complete education prior to starting insulin pump for best outcome. Reviewed with patient how to treat hypoglycemia with rule of 15s, Kyrgyz handout given Will follow up for continued education.Pt is interested in iLet with Agatha 3 + Portions of this note were created using voice recognition software, please excuse any words or phrases that may have been misinterpreted. Patient Instructions: Revisar los alimentos actuales que contienen carbohidratos Trate la hipoglucemia con la meet del 15s Seguimiento con educador en diabetes en 1 mes. Coding Level of Care Code Est Pt Level 1 (27876) Diagnoses Type 2 diabetes mellitus with diabetic nephropathy, with long-term current use of insulin E11.21; Z79.4 Diabetes mellitus complication status: with kidney complications Diabetes mellitus complication detail: with nephropathy
== END 2024-05-08 10:52 | disposition home or self-care (01) ==
PROVIDERS: PCP Nurse Practitioner Family; Visit Provider Registered Nurse Diabetes Educator
DX: E11.21 Type 2 diabetes mellitus with diabetic nephropathy (principal); Z79.4 Long term (current) use of insulin

== ENCOUNTER → 2024-05-08 09:12 | Outpatient (BNVA) | payer MEDICARE, MEDICAID, SELFPAY | PROVIDERS: PCP Nurse Practitioner Family; Visit Provider Registered Nurse Diabetes Educator | DX: E11.21 Type 2 diabetes mellitus with diabetic nephropathy (principal); Z79.4 Long term (current) use of insulin | CPT/HCPCS: 99211 ==

== ENCOUNTER 2024-05-11 07:59 | Outpatient (AMB) | payer MEDICARE, MEDICAID, SELFPAY ==
--- OUTSIDE RECORDS SUMMARY | 2024-05-11 08:01 | XMS_ITS | Encounter Summary ---
Author Organization [employer] Address [address] [facility] 7t [place] [address] Care Team Providers Care Collections Director Name Role Phone Payal Walker Primary Care Provider [phone] Reason for Visit * Reason Comments Med Refill Encounter Details Date Type Department Care Team (Late st Contact Info) Description 10/20/[address] [facility] MEDICINE [address] [place], [place] [phone] [facility] [address] [place], [place] [phone] Social History Tobacco Use Types Packs/Day Years [...] AM EST Office Visit [facility] CHC ADULT DENTAL [address] [place], [place] [phone] Neptali Palomo, DMD 505 [place], [place] [phone] documented as of this encounter Visit Diagnoses Not on filedocumented in this encounter Additional Health Concerns Assessment Noted Time PHQ-9 Depression Total Score: 0 08/05/19 23 2:13 PM EDT documented as of this encounter Care Teams Collections Director Relationship Specialty Start Date End Date Payal Walker ANP 230 [place] [address] PCP - General Family Medicine 11/20/21 08/04/23 documented as of this encounter
--- OUTSIDE RECORDS SUMMARY | 2024-05-11 08:01 | XMS_ITS | Encounter Summary ---
Author Organization [employer] Address [address] 7t [place] [address] Care Team Providers Care Cancer Researcher Name Role Phone Unavailable Primary Care Provider Unavailabl e Reason for Visit * Reason Comments Med Refill Encounter Details Date Type Department Care Team ([facility] st Contact Info) Description 12/09/2023 Refill [facility] MEDICINE 230 [place], [place] [phone] Payal Walker, ANP 230 [place] [address] Type 2 diabetes mellitus with hyperlipidemia (CMS/HCC) ([facility]/HCC); Primary hypertension Social History Tobacco Use [...] 05/18/2024 10:00 AM EST Office Visit [facility] ADULT DENTAL [address] [place] [address] Neptali Palomo, DMD 505 [place] [address] documented as of this encounter Visit Diagnoses Diagnosis Type 2 diabetes mellitus with hyperlipidemia (CMS/HCC) ([facility]) Primary hypertension Unspecified essential hypertension documented in this encounter Additional Health Concerns Assessment Noted Time PHQ-9 Depression Total Score: 0 08/05/19 23 2:13 PM EDT documented as of this encounter
--- OUTSIDE RECORDS SUMMARY | 2024-05-11 08:01 | XMS_ITS | Encounter Summary ---
Author Organization [employer] Address [address] 7t [place] [address] Care Team Providers Care Offset Printing Pressmen Name Role Phone Unavailable Primary Care Provider Unavailabl e Reason for Visit * Reason Comments Med Refill Encounter Details Date Type Department Care Team ([facility] st Contact Info) Description 01/28/2024 Refill [facility] MEDICINE 230 [place], [place] [phone] Payal Walker, ANP 230 [place] [address] Type 2 diabetes mellitus with hyperlipidemia (CMS/HCC) ([facility]) Social History Tobacco Use Types Packs/Day Years [...] 05/18/2024 10:00 AM EST Office Visit [facility] ADULT DENTAL [address] [place] [address] Neptali Palomo, DMD [address] [place] [address] documented as of this encounter Visit Diagnoses Diagnosis Type 2 diabetes mellitus with hyperlipidemia (CMS/HCC) (CMS/HCC) documented in this encounter Additional Health Concerns Assessment Noted Time PHQ-9 Depression Total Score: 0 08/05/19 23 2:13 PM EDT documented as of this encounter
--- OUTSIDE RECORDS SUMMARY | 2024-05-11 08:01 | XMS_ITS | Encounter Summary ---
Author Organization [employer] Address [address] 7t [place] [address] Care Team Providers Care Electroplater Apprentice Name Role Phone Unavailable Primary Care Provider Unavailabl e Reason for Visit * Reason Comments Med Refill Encounter Details Date Type Department Care Team ([facility] st Contact Info) Description 11/04/2023 Refill [facility] MEDICINE 230 [place], [place] [phone] Payal Walker, ANP 230 [place] [address] Type 2 diabetes mellitus with hyperlipidemia (CMS/HCC) ([facility]) Social History Tobacco Use Types Packs/Day [...] 05/18/2024 10:00 AM EST Office Visit [facility] ADULT DENTAL [address] [place] [address] Neptali Palomo, DMD [address] [place] [address] documented as of this encounter Visit Diagnoses Diagnosis Type 2 diabetes mellitus with hyperlipidemia (CMS/HCC) (CMS/HCC) documented in this encounter Additional Health Concerns Assessment Noted Time PHQ-9 Depression Total Score: 0 08/05/19 23 2:13 PM EDT documented as of this encounter
--- OUTSIDE RECORDS SUMMARY | 2024-05-11 08:01 | XMS_ITS | Encounter Summary ---
Author Organization [employer] Address [address] [place] [address] Care Team Providers Care Parts Professional Name Role Phone Unavailable Primary Care Provider Unavailabl e Reason for Visit * Reason Comments Med Refill Encounter Details Date Type Department Care Team ([facility] st Contact Info) Description 01/28/[address] [facility] MEDICINE 230 [place], [place] [phone] Payal Walker, ANP 230 [place] [address] Social History Tobacco Use Types Packs/Day Years [...] Description 05/18/2024 10:00 AM EST Office Visit [facility] ADULT DENTAL [address] [place] [address] Neptali Palomo, DMD [address] [place] [address] documented as of this encounter Visit Diagnoses Not on filedocumented in this encounter Additional Health Concerns Assessment Noted Time PHQ-9 Depression Total Score: 0 08/05/19 23 2:13 PM EDT documented as of this encounter
--- OUTSIDE RECORDS SUMMARY | 2024-05-11 08:02 | XMS_ITS | Encounter Summary ---
Author Organization [employer] Address [address] [facility] [address] [place] [address] Care Team Providers Care Cmm Inspector Name Role Phone Unavailable Primary Care Provider Unavailabl e Reason for Visit * Reason Comments Med Refill Encounter Details Date Type Department Care Team ([facility] st Contact Info) Description 04/14/2024 Refill [facility] MEDICINE 230 [place], [place] [phone] Payal Walker, ANP 230 [place] [address] Type 2 diabetes mellitus with hyperlipidemia (CMS/HCC) ([facility]) Social History Tobacco Use Types [...] 10:00 AM EST Office Visit [facility] ADULT DENTAL [address] [place] [address] Neptali Palomo, DMD [address] [place] [address] documented as of this encounter Visit Diagnoses Diagnosis Type 2 diabetes mellitus with hyperlipidemia (CMS/HCC) (CMS/HCC) documented in this encounter Additional Health Concerns Assessment Noted Time PHQ-9 Depression Total Score: 0 08/05/19 23 2:13 PM EDT documented as of this encounter
--- OUTSIDE RECORDS SUMMARY | 2024-05-11 08:02 | XMS_ITS | Encounter Summary ---
Author Organization [employer] Address [address]t [place] [address] Care Team Providers Care Welfare Worker Name Role Phone Unavailable Primary Care Provider Unavailabl e Reason for Visit * Reason Comments Med Refill Encounter Details Date Type Department Care Team ([facility] st Contact Info) Description 11/01/[address] [facility] MEDICINE 230 [place], [place] [phone] Payal Walker, ANP 230 [place] [address] Primary hypertension Social History Tobacco Use Types [...] AM EST Office Visit [facility] CHC ADULT DENTAL [address] [place] [address] Neptali Palomo, DMD [address] [place] [address] documented as of this encounter Visit Diagnoses Diagnosis Primary hypertension Unspecified essential hypertension documented in this encounter Additional Health Concerns Assessment Noted Time PHQ-9 Depression Total Score: 0 08/05/19 23 2:13 PM EDT documented as of this encounter
--- OUTSIDE RECORDS SUMMARY | 2024-05-11 08:02 | XMS_ITS | Encounter Summary ---
Author Organization [facility] Address [address] [address] [facility] [address] 7t [place] [address] Care Team Providers Care Flatlock Sewing Machine Operator Name Role Phone Payal Walker Primary Care Provider [phone] Encounter Details Date Type Department Care Team (Latest Contact Info) Description 10/03/2018 Abstract [facility] CONVERSIONS Dental, Provider, DDS Social History [...] Description 05/18/2024 10:00 AM EST Office Visit [facility] ADULT DENTAL 505 [place] [address] Neptali Palomo, DMD 505 [place] [address] documented as of this encounter Visit Diagnoses Not on filedocumented in this encounter Care Teams Flatlock Sewing Machine Operator Relationship Specialty Start Date End Date Payal Walker ANP 230 [place] [address] PCP - General Family Medicine 11/20/21 08/04/23 documented as of this encounter
--- OUTSIDE RECORDS SUMMARY | 2024-05-11 08:02 | XMS_ITS | Encounter Summary ---
Author Organization [employer] Address [address] [facility] [address] 7t [place] [address] Care Team Providers Care Mattress Weaver Name Role Phone Unavailable Primary Care Provider Unavailabl e Reason for Visit * Reason Comments Med Refill Encounter Details Date Type Department Care Team ([facility] st Contact Info) Description 10/22/2023 Refill [facility] 230 [place], [place] [phone] Payal Walker, ANP 230 [place] [address] Type 2 diabetes mellitus with hyperlipidemia (CMS/HCC) ([facility]) Social History Tobacco Use Types Packs/Day [...] 05/18/2024 10:00 AM EST Office Visit [facility] ADULT DENTAL [address] [place] [address] Neptali Palomo, DMD [address] [place] [address] documented as of this encounter Visit Diagnoses Diagnosis Type 2 diabetes mellitus with hyperlipidemia (CMS/HCC) (CMS/HCC) documented in this encounter Additional Health Concerns Assessment Noted Time PHQ-9 Depression Total Score: 0 08/05/19 23 2:13 PM EDT documented as of this encounter
--- OUTSIDE RECORDS SUMMARY | 2024-05-11 08:02 | XMS_ITS | Encounter Summary ---
Author Organization [employer] Address [address] 7[address] [place] [address] Care Team Providers Care Artist'S Representative Name Role Phone Payal Walker BINDU Primary Care Provider [phone] Encounter Details Date Type Department Care Team (Late st Contact Info) Description 02/16/2023 Abstract [facility] MEDICINE 230 [place], [place] [phone] Mary Kate Emmanuel Social History Tobacco Use [...] [facility] [address] [place], [place] [phone] Dewey Neptali, DMD [address] [place] [address] documented as of this encounter Procedures Procedure [...] documented as of this encounter Care Teams Artist'S Representative Relationship Specialty Start Date End Date Payal Walker ANP [address] [place] [address] PCP - General Family Medicine 11/20/21 08/04/23 documented as of this encounter
--- OUTSIDE RECORDS SUMMARY | 2024-05-11 08:02 | XMS_ITS | Encounter Summary ---
Author Organization [employer] Address [address] 7[address] [place] [address] Care Team Providers Care Network Engineer Administrator Name Role Phone Payal Walker BINDU Primary Care Provider [phone] Reason for Visit * Reason Comments Med Refill Encounter Details Date Type Department Care Team (Late st Contact Info) Description 06/25/2023 Refill [facility] MEDICINE 230 [place], [place] [phone] Siena Greenwood MD 230 [place], [place] [phone] GERD without esophagitis Social History Tobacco Use [...] Description 05/18/2024 10:00 AM EST Office Visit [facility] CHC ADULT DENTAL [address] [place] [address] Neptali Palomo, JESSICA [address] [place] [address] documented as of this encounter Visit Diagnoses Diagnosis GERD without esophagitis Esophageal reflux documented in this encounter Additional Health Concerns Assessment Noted Time PHQ-9 Depression Total Score: 0 08/05/19 23 2:13 PM EDT documented as of this encounter Care Teams Network Engineer Administrator Relationship Specialty Start Date End Date Payal Walker ANP 230 [place] [address] PCP - General Family Medicine 11/20/21 08/04/23 documented as of this encounter
--- OUTSIDE RECORDS SUMMARY | 2024-05-11 08:02 | XMS_ITS | Clinical Summary ---
Author Organization [employer] Address [address] [facility] 7t [place] [address] Care Team Providers Care Cutter Grinder Operator Name Role Phone Unavailable Primary Care [...] ype 2 diabetes mellitus with hyperlipidemia (CMS/HCC) ([facility]) Use 1 by To Skin route once daily 100 each 3 05/14/19 23 Active Blood Glucose Monitoring Suppl (FreeStyle Lite) w/Device kitIndications:Typ e 2 diabetes mellitus without complication, unspecified whether intermediate teacher insulin use (CMS/[facility]) 1 each before breakfast, before lunch, and before evening meal. 1 kit 07/11/19 23 Active Continuous Blood Gluc Touch Up Worker (FreeStyle Agatha 2 Hiko) deviceIndications: Type 2 diabetes mellitus with hyperlipidemia (CMS/HCC) (CMS/[facility]) 1 each 5 (five) times a day. 1 each 07/28/19 23 Active Continuous Blood Gluc Sensor (FreeStyle Agatha 2 Sensor) miscIndications:Ty pe 2 diabetes mellitus with hyperlipidemia (CMS/HCC) ([facility]) 1 each every 14 (fourteen) days. [...] Type 2 diabetes mellitus with hyperlipidemia (CMS/HCC) ([facility]) TAKE 1 TABLET BY MOUTH DAILY [...] fasting and chem -referred to neurologist at [facility] stroke f up and to f CT ,MRI findings --unsure if actual aneurysm in CTA? 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 Mild nodularity increases suspicion for cirrhosis Encounters Date Type Department Care Team Description 04/14/2024 Refill [facility] MEDICINE 230 [place] [address] Payal Walker ANP Type 2 diabetes mellitus with hyperlipidemia (CMS/HCC) (CMS/HCC) 04/13/2024 9:00 AM EST Office Visit [facility] ADULT DENTAL [address] [place] [address] Neptali Palomo, JESSICA Full coverage crown needed for root canal-treated tooth (Primary Dx); Full coverage crown needed for tooth at risk for fracture 03/23/2024 2:00 PM EST Office Visit [facility] ADULT DENTAL 505 [place] [address] Neptali Palomo, JESSICA Full coverage crown needed for tooth at risk for fracture (Primary Dx); Full coverage crown needed for root canal-treated tooth 02/28/2024 2:00 PM EST Office Visit [facility] ADULT DENTAL 505 [place] [address] Neptali Palomo, JESSICA Full coverage crown needed for root canal-treated tooth (Primary Dx) from Last 3 Months Immunizations Name Administration [...] Description 05/18/2024 10:00 AM EST Office Visit [facility] ADULT DENTAL 505 [place] [address] Neptali Palomo, JESSICA 505 [place] [address] Health Maintenance Due Date Last Done Comments CT Colonography 1961 FIT DNA/Cologuard 1961 FIT 1961 FOBT 1961 HIV Screening 1961 Sigmoidoscopy 1961 Pneumococcal Vaccine: Pediatrics (0 to 5 Years) and At-Risk Patients (6 to 49) Years) (1 of 2 - PCV) 09/09/1967 Diabetes: Foot Exam 09/09/1971 Eye Exam 09/09/1971 Alcohol/Substance Use Screening 1973 Pneumococcal Vaccine: 50+ Years (1 of 2 - PCV) 1980 Zoster Vaccines (1 of 2) 09/09/2011 RSV Patients and Patients Aged 60 years or older (1 - Risk 60-74 years 1-dose series) 2021 Hepatitis B Vaccines (3 of 3 - 19+ 3-dose series) 02/04/2022 2021, 08/04/2021 Diabetes: Hemoglobin A1C 11/19/2022 023, 06/04/2020, 01/29/2020 Depression Screening 08/05/2023 08/04/2022, 08/05/19 SDOH Screening 08/05/2023 08/04/2022 Diabetes: Urine Protein [...] 05/01/2026 Dental X-Ray: Full Mouth 12/01/2026 12/01/2023, 03/0 03/2017 DTaP/Tdap/Td Vaccines (2 - Td or Tdap) [...] Procedure Name Priority Date/Time Associated Diagnosis Comments CASE PRESENTATION, DETAILED AND EXTENSIVE TREATMENT PLANNING Routine 04/13/2024 [...] coverage crown needed for root canal-treated tooth CASE PRESENTATION, DETAILED AND EXTENSIVE TREATMENT PLANNING Routine 03/23/2024 2:00 PM EST Full coverage crown needed for tooth at risk for fracture Full coverage crown needed for root canal-treated tooth 19,18 CROWN PREP Routine 03/23/2024 2:00 PM EST Full coverage crown needed for tooth at risk for fracture Full coverage crown needed for root canal-treated tooth 18 CORE BUILDUP, INCL ANY PINS WHEN REQ Routine 03/23/2024 2:00 PM EST Full coverage crown needed for tooth at risk for fracture CASE PRESENTATION, DETAILED AND EXTENSIVE TREATMENT PLANNING Routine 02/28/2024 2:00 PM EST Full coverage crown needed for root canal-treated tooth PALLIATIVE (EMERGENCY) TREATMENT OF DENTAL PAIN - MINOR PROCEDURE Routine 02/28/2024 2:00 PM EST Full coverage crown needed for root canal-treated tooth 19 CROWN PREP Routine 02/28/2024 2:00 PM EST Full coverage crown needed for root canal-treated tooth PROPHYLAXIS - ADULT Routine 12/01/2023 2 :00 PM EDT INTRAORAL - COMPLETE SERIES OF RADIOGRAPHIC IMAGES Routine 12/01/2023 2:00 [...] 9:03 AM EDT) Creatinine, Urine 89.78 mg/dL [facility] Microalbumin Urine 59.0 mg/L [facility] Microalbum Creatinine Ratio Ur 65.7 ug/mg cr [facility] Comment:Albumin/Creatinine R atio Reference Ranges: Normal: < 30 ug/mg creatinine Microalbuminuria: 30 - 300 ug/mg creatinineClinical Albuminuria: > 300 ug/mg creatinine 08/19/2022 9:03 AM EDT 08/19/2022 11:06 AM EDT us [facility] External Provider LAB URI NE ORDERABLES Final Result [facility] [address] [place] [address] [phone] * Hemoglobin A1c (08/19/2022 9:03 AM EDT) Hemoglobin A1c 7.3 % [facility] Comment:Hemoglobin A1C Refer ence Range Adults: 4.8 - 6.0 % Non diabetic: < 6.0 % Goal: < 7.0 %Additional Action Suggested: > 8.0 %Note: Hemoglobin A1c results are invalid for patients with abnormal amounts of HbF. Blood transfusions may impact the HbA1c concentration in the patient sample. Estimated Average Glucose 163 mg/dL [facility] Comment:eAG = Estimated ave rage glucose which is %A1C expressed asaverage glucose, using the formula of the W2E-OyljxrsUislphh Glucose study (ADAG), Diabetes Care, Vol.31,#8,2007 08/19/2022 9:03 AM EDT 08/19/2022 11:12 AM EDT us [facility] External Provider LAB BLO OD ORDERABLES Final Result [facility] [address] [place] [address] [phone] * Lipid Panel, Standard (08/19/2022 9:03 AM EDT) Triglycerides 91 mg/dL [facility] Comment:Desirable Triglyceri de: less than 150 mg/dLBorderline High Triglyceride 150-199 mg/dLHigh Triglyceride: 200-499 mg/dLVery High Triglyceride: greater than or equal to 5OO mg/dL Cholesterol 186 mg/dL [facility] Comment:Desirable Cholestero l: less than 200 mg/dLBorderline High Cholesterol: 200-239 mg/dLHigh Cholesterol: greater than 239 mg/dL LDL Cholesterol Calculated 129 mg/dl [facility] Comment:Desirable LDL: less than 100 mg/dLNear Optimal/Above Optimal LDL: 110- 129 mg/dLBorderline High LDL: 130-159 mg/dLHigh LDL: 160-189 mg/dLVery High LDL: greater than or equal to 190 mg/dL HDL Cholesterol 39 mg/dL [facility] Comment:Desirable HDL: great er than 40 mg/dL Note: This HDL assay may give artificially low results in patients with liver disease. 08/19/2022 9:03 AM EDT 08/19/2022 11:12 AM EDT [facility] External Provider LAB BLO OD ORDERABLES Final Result [facility] [address] [place] [address] [phone] * HEPATITIS C AB W/REFL TO HCV RNA, QN, PCR (07/16/2020 9:56 AM EDT) HEPATITIS C ANTIBODY NON-REACT DEN NON-REACT [facility] INDEX 0.02 <1.00 [facility] Comment: ?? HCV antibody was non-reactive. There is no laboratory ?? evidence of HCV infection. ?? In most cases, no further action is required. However, if recent HCV exposure is suspected, a test for HCV RNA (test code 58340) is suggested. ?? For additional information please refer to http://education.[employer]/faq/LMX07k4 (This link is being provided for informational/ educational purposes only.) ?? 07/16/2020 9:56 AM EDT Davida Webb SENIOR MANAGER CREATIVE SERVICES HISTORICAL/NON ORDERABLE LABS Final Result Performing Organization Address City/[facility]/ZIP Co de Phone Number [facility] [address] [place] [address], * Hm Colonoscopy (05/01/2016) Colonoscopy Normal Normal Narrative Mary Kate Emmanuel - 05/01/2016 Repeat in 10 years Historical Provider MD HEALTH MAINTENANCE Final Result from Last 3 Months or Most Recently Relevant to Health Maintenance Insurance [facility] STANDARD MEDICARE DENTAL-[facility] [place] [address]
--- OUTSIDE RECORDS SUMMARY | 2024-05-11 08:02 | XMS_ITS | Encounter Summary ---
Author Organization [facility] Address [address] [facility] 7t [place] [address] Care Team Providers Care Barrel Drainer Name Role Phone Payal Walker Primary Care Provider [phone] Encounter Details Date Type Department Care Team (Latest Contact Info) Description 02/12/2020 Abstract [facility] CONVERSIONS Dental, Provider, DDS Social History [...] Description 05/18/2024 10:00 AM EST Office Visit [facility] ADULT DENTAL [address] [place] [address] Neptali Palomo, DMD [address] [place] [address] documented as of this encounter Visit Diagnoses Not on filedocumented in this encounter Care Teams Barrel Drainer Relationship Specialty Start Date End Date Payal Walker ANP [address] [place] [address] PCP - General Family Medicine 11/20/21 08/04/23 documented as of this encounter
--- OUTSIDE RECORDS SUMMARY | 2024-05-11 08:02 | XMS_ITS | Encounter Summary ---
Author Organization [employer] Address [address] [facility] 7t [place] [address] Care Team Providers Care Usability Architect Name Role Phone Unavailable Primary Care Provider Unavailabl e Reason for Visit * Reason Comments [place] Patient presents tod ay for crown delivery Alma PERERA Encounter Details Date Type Department Care Team ([facility] st Contact Info) Description 04/13/2024 9:00 AM EST Office Visit [facility] [address] [place] [address] Neptali Palomo, DMD [address] [place] [address] Full coverage crown needed for root canal-treated [...] Out: Timeout Date: 04/13/24, Timeout Time: 0954 ([place] delivery # 18,19) Location: [facility] Tooth: #18 and #19 Procedure: [place] Verified the above with patient, farm assistant, and provider. Confirmed via patient's chart, intraorally and by radiographs. Training Professional: Yes. Language: Zambian. Training Professional's Name: Alma PERERA Chief Complaint Patient presents with [place] Patient presents today for crown delivery Alma [...] pumiced tooth as needed. Tried on final methodist Verified interproximal contacts and margins BW taken to confirm margins and contacts Occlusion adjusted as needed Tooth Treatment: Gluma applied Cemented with: Relyx Unicem Cleaned excess cement, flossed Patient satisfied with comfort and esthetics. POI given. Patient discharged alert, oriented, and in stable condition NV: Min Louver Door Assembler: Alma RENDON international broadcast music librarian Dentist: Neptali Palomo DMD documented in this encounter Plan of Treatment Upcoming Encounters Date Type Department Care Team (Late st Contact Info) Description 05/18/2024 10:00 AM EST Office Visit [facility] [address] [place] [address] Neptali Palomo DMD [address] [place] [address] documented as of this encounter Procedures Procedure [...]
--- NOTE | 2024-05-11 08:05 | MHC.AMDMED ---
Intake Intake Visit Reasons: [employer] reader help Allergies codeine [CODEINE] Allergy (Intermediate, Verified 04/21/24 12:43) TACHYCARDIA HPI Comprehensive Diabetes Asmnt Most Recent Diabetes Results: Hemoglobin A1c TNP % 02/20/19 Microalb/Creat Ratio 51.4 ug/mg cr (<30) H 08/09/23 Cholesterol 264 mg/dL (<200) H 03/21/24 HDL Cholesterol 47 mg/dL (>40) 03/21/24 Triglycerides 136 mg/dL (<150) 03/21/24 Creatinine 0.90 mg/dL (0.5-1.4) 03/23/24 Blood Urea Nitrogen 18 mg/dL (9-16) H 03/21/24 Sodium 138 mmol/L (135-145) 03/21/24 Potassium 3.5 mmol/L (3.3-5.1) 03/21/24 Chloride 103 mmol/L (96-108) 03/21/24 Carbon Dioxide 28 mmol/L (22-29) 03/21/24 Calcium 9.5 mg/dL (8.4-10.2) 03/21/24 AST 22 U/L (5-37) 03/21/24 ALT 30 U/L (0-40) 03/21/24 Total Protein 8.0 g/dL (6.5-8.0) 03/21/24 Albumin 4.3 g/dL (3.5-5.0) 03/21/24 [facility] Medical History Palpitations Pancreatitis Arthritis GERD (gastroesophageal reflux disease) CVA (cerebral vascular accident) Microalbuminuric diabetic nephropathy 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 Erectile dysfunction Vitamin D deficiency Multinodular thyroid Other and unspecified hyperlipidemia Essential hypertension Aortic valve calcification Surgical History History of esophagogastroduodenoscopy (EGD) H/O colonoscopy Family History Father Stroke Brother Stroke Mother Diabetes Social History Household Members: Spouse Housing: House Alcohol intake: never Patient Tobacco Use Status: Former Tobacco user e-Cigarette/Vaping Use: Never Used service: No Current occupational status: disabled Cognitive needs: No Hearing needs: No Vision needs: Yes Assessment & Plan Assessment & Plan (1) Type 2 diabetes mellitus with unspecified complications: Code(s): E11.8 - Type 2 diabetes mellitus with unspecified complications Plan: Patient at visit to set up Agatha 3 reader Pt's old reader does not stay connected to sensor. Abbot sent Pt a replacment. Switch reader to Hebrew. Set time and date. Instructed patient he will need to wait until next sensor change in order to begin using new reader Patient stated he understands Portions of this note were created using voice recognition software, please excuse any words or phrases that may have been misinterpreted. Coding Level of Care Code Est Pt Level 1 (00893) Diagnoses Type 2 diabetes mellitus with unspecified complications E11.8
== END 2024-05-11 08:09 | disposition home or self-care (01) ==
PROVIDERS: PCP Nurse Practitioner Family; Visit Provider Registered Nurse Diabetes Educator
DX: E11.8 Type 2 diabetes mellitus with unspecified complications (principal)

== ENCOUNTER → 2024-05-11 07:59 | Outpatient (BNVA) | payer MEDICARE, MEDICAID, SELFPAY | PROVIDERS: PCP Nurse Practitioner Family; Visit Provider Registered Nurse Diabetes Educator | DX: E11.8 Type 2 diabetes mellitus with unspecified complications (principal) | CPT/HCPCS: 99211 ==

== ENCOUNTER 2024-05-25 15:29 | Outpatient (REF) | payer MEDICARE, MEDICAID, SELFPAY ==
--- NOTE | ~2024-05-25 | MR_ITS ---
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 Correlation is also made with a CT of the abdomen with contrast dated 02/01/2024. TECHNIQUE: Axial in and out of phase T1-weighted gradient echo, axial diffusion weighted, and axial and coronal HASTE T2 with fat saturation images were obtained through the abdomen. 3D MRCP Reconstructed and thin and thick slab images of the biliary tree were obtained. Subsequently, fat suppressed axial and coronal T1-weighted images were obtained after the intravenous administration of 7.5 mL Gadavist. FINDINGS: Again seen is a complex fluid collection in the pancreatic body which demonstrates heterogeneous areas of increased and decreased T2 signal intensity as well as areas of increased T1 signal intensity consistent with hemorrhage or proteinaceous content. Collection measures 3.1 x 2.9 x 2.0 cm which is smaller than on the prior study (previously 5.6 x 4.1 x 4.9 cm). No internal enhancement is seen. Findings are consistent with a pseudocyst. Again seen is mild atrophy of the pancreatic tail and mild dilatation of the pancreatic duct in the tail with respect to the head. MRCP images do not demonstrate continuity of the pancreatic duct in the region of the pseudocyst. No peripancreatic inflammatory changes are seen. There is no significant signal loss within the liver on opposed phase imaging to suggest steatosis. There is no enhancing liver mass. The hepatic and portal veins are patent. There is no intrahepatic biliary ductal dilatation. The common bile duct is normal in caliber. The gallbladder, spleen, adrenals, and left kidney are unremarkable. There is an 11 mm cyst at the lower pole of right kidney. No retroperitoneal lymphadenopathy or ascites is identified in the upper abdomen. The splenic vein is not visualized and there are multiple collateral vessels anterior to the stomach. Findings are consistent with splenic vein thrombosis and are unchanged from the prior study. MR/MR abdomen wo/w con IMPRESSION: 1. Interval decrease in size of the previously noted complex pseudocyst of the pancreatic body as described. Continued follow-up is suggested. 2. Atrophy of the pancreatic tail with dilatation of the pancreatic duct as seen previously. 3. Chronic splenic vein thrombosis. Electronically signed by: Isidoro Mg MD 05/26/2024 07:23 AM SARAH
[2024-05-25] MEDS: gadobutroL 7.5 ML VIAL IVPUSH (16:50)
--- OUTSIDE RECORDS SUMMARY | 2024-05-25 18:50 | XMS_ITS | Encounter Summary ---
Author Organization [employer] Address [address] [facility] [address] 7[address] [place] [address] Care Team Providers Care Table Top Tile Setter Name Role Phone Neptali Palomo DMD Unavailable [phone] Reason for Visit * Reason Comments Med Refill Encounter Details Date Type Department Care Team (Late st Contact Info) Description 11/04/2023 Refill [facility] [address] [place], [place] [phone] Payal Walker, ANP [address] [place], [place] [phone] Type 2 diabetes mellitus with hyperlipidemia ([facility]/HCC) ([facility]) Social History Tobacco Use Types [...] Care Team (Late st Contact Info) Description 06/20/2024 10:30 AM EDT Office Visit [facility] ADULT DENTAL [address] [place] [address] Neptali Palomo DMD [address] [place] [address] documented as of this encounter Visit Diagnoses Diagnosis Type 2 diabetes mellitus with hyperlipidemia (CMS/HCC) (CMS/HCC) documented in this encounter Additional Health Concerns Assessment Noted Time PHQ-9 Depression Total Score: 0 08/05/19 23 2:13 PM EDT documented as of this encounter Care Teams Table Top Tile Setter Relationship Specialty Start Date End Date Neptali Palomo DMD [address] [place] [address] Dentist 05/18/24 documented as of this encounter
--- OUTSIDE RECORDS SUMMARY | 2024-05-25 18:50 | XMS_ITS | Clinical Summary ---
Author Organization [employer] Address [address] [facility] 7t [place] [address] Care Team Providers Care Floor Trader Name Role Phone Neptali Palomo DMD Unavailable [phone] Allergies Active Allergy Reactions Criticality Noted Date Comments Codeine Palpitations High 12/25/2014 Medications cholecalciferol (Vitamin D-3) 50 MCG (1999) capsule Take 1 capsule by mouth in [...] ype 2 diabetes mellitus with hyperlipidemia (CMS/HCC) (CMS/[facility]) Use 1 by To Skin route once daily 100 each 3 05/14/19 23 Active Blood Glucose Monitoring Suppl (FreeStyle Lite) w/Device kitIndications:Typ e 2 diabetes mellitus without complication, unspecified whether retirement insulin use (CMS/[facility]) 1 each before breakfast, before lunch, and before evening meal. 1 kit 07/11/19 23 Active Continuous Blood Gluc Leaf Conditioner (FreeStyle Agatha 2 [place]) deviceIndications: Type 2 diabetes mellitus with hyperlipidemia (CMS/HCC) (CMS/HCC) 1 each 5 (five) times a day. 1 each 07/28/19 23 Active Continuous Blood Gluc Sensor (FreeStyle Agatha 2 Sensor) miscIndications:Ty pe 2 diabetes mellitus with hyperlipidemia (CMS/HCC) ([facility]) 1 each every 14 (fourteen) days. 6 [...] Active Additional Information Patient not taking.Reported on 05/18/2024 metFORMIN (Glucophage) 500 MG tabletIndications: Type 2 diabetes mellitus with hyperlipidemia (CMS/HCC) (CMS/HCC) TAKE 1 TABLET BY MOUTH DAILY WITH MORNING MEAL AND TAKE 2 TABLETS BY MOUTH DAILY WITH EVENING MEAL. 270 tablet 07/22/19 24 Active Trulicity 0.75 MG/0.5ML solution pen-injector INYECTE 0.75 MG (0.5 ML) POR V A SUBCUT CED SEMANALMENTE 11/01/19 24 Active Lantus SoloStar 100 UNIT/ML pen INJECT 5 UNIT (0.05 ML) SUBCUTANEOUSLY EVERY EVENING FOR 30 DAYS 01/17/20 24 Active B-D ULTRAFINE III SHORT PEN 31G X 8 MM misc USE TO INJECT INSULIN ONCE A DAY 01/18/20 24 Active lisinopril 20 MG tablet Take 20 [...] fasting and chem -referred to neurologist at [place] x stroke f up and to f CT ,MRI findings --unsure if actual aneurysm in CTA? 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 Elevated liver function tests 12/25/2014 Overview (04/16/2022): Liver U/S 05/13/16, borderline ehcogenic. Mild nodularity increases suspicion for cirrhosis Encounters Date Type Department Care Team Description 05/18/2024 10:00 AM EST Office Visit [facility] ADULT DENT[facility] [address] [place] [address] Neptali Palomo DMD Defective dental quaker (Primary Dx) 04/14/2024 Refill [facility] [address] [place], [place] [phone] Payal Walker ANP Type 2 diabetes mellitus with hyperlipidemia (CMS/HCC) ([facility]/HCC) 04/13/2024 9:00 AM EST Office Visit [facility] ADULT D[facility] [address] [place] [address] Neptali Palomo DMD Full coverage crown needed for root canal-treated tooth (Primary Dx); Full coverage crown needed for tooth at risk for fracture 03/23/2024 2:00 PM EST Office Visit [facility]ULT [facility] [address] [place] [address] Neptali Palomo DMD Full coverage crown needed for tooth at risk for fracture (Primary Dx); Full coverage crown needed for root canal-treated tooth 02/28/2024 2:00 PM EST Office Visit [facility]ULT [facility] [address] [place] [address] Neptali Palomo DMD Full coverage crown needed for root [...] Sign Reading Time Taken Comments Blood Pressure 130/80 05/18/2024 10:20 AM EST Pulse 65 12/01/2023 1:45 PM EDT Temperature - - Respiratory Rate 24 08/17/2022 12:59 PM EDT Oxygen Saturation - - Inhaled Oxygen Concentration - - Weight 80.3 kg (177 lb) 08/17/2022 12:59 PM EDT Height 172.7 cm (5' 8 ) 08/17/2022 12:59 PM EDT Body Mass Index 26.91 08/17/2022 12:59 PM EDT Plan of Treatment Upcoming Encounters Date Type Department Care Team ([facility] st Contact Info) Description 06/20/2024 10:30 AM EDT Office Visit [facility]ULT D[facility] [address] [place] [address] Neptali Palomo, DMD [address] [place] [address] Health Maintenance Due Date Last Done Comments CT Colonography 1961 FIT DNA/Cologuard 1961 FIT 1961 FOBT 1961 HIV Screening 1961 Sigmoidoscopy 1961 Diabetes: Foot Exam 09/09/1971 Eye Exam 09/09/1971 [...] 02/01/2023, 02/01/2020, Additional history exists Tobacco Screening 05/18/2025 05/18/2024 Colonoscopy 05/01/2026 05/01/2016 Colorectal Cancer Screening 05/01/2026 Dental X-Ray: Full Mouth 12/01/2026 12/01/2023, 03/03/2017 DTaP/Tdap/Td Vaccines (2 - Td or Tdap) [...] PRESENTATION, DETAILED AND EXTENSIVE TREATMENT PLANNING Routine 05/18/2024 10:00 AM EST Defective dental quaker 11 F(V) RESIN-BASED COMPOSITE - 1 SURF, ANTERIOR Routine 05/18/2024 10:00 AM EST Defective dental quaker 10 MFF(V)L RESIN-BASED COMPOSITE - 3 SURF, ANTERIOR Routine 05/18/2024 10:00 AM EST Defective dental quaker CASE PRESENTATION, DETAILED AND EXTENSIVE TREATMENT PLANNING [...] 9:03 AM EDT) Creatinine, Urine 89.78 mg/dL [facility] Microalbumin Urine 59.0 mg/L [facility] Microalbum Creatinine Ratio Ur 65.7 ug/mg cr [facility] Comment:Albumin/Creatinine R atio Reference Ranges: Normal: < 30 ug/mg creatinine Microalbuminuria: 30 - 300 ug/mg creatinineClinical Albuminuria: > 300 ug/mg creatinine 08/19/2022 9:03 AM EDT 08/19/2022 11:06 AM EDT [facility] External Provider LAB URI NE ORDERABLES Final Result Performing Organization Address [facility] Co de Phone Number [facility] [address] [place] [address] [phone] * Hemoglobin A1c (08/19/2022 9:03 AM EDT) Hemoglobin A1c 7.3 % [facility] Comment:Hemoglobin A1C Refer ence Range Adults: 4.8 - 6.0 % Non diabetic: < 6.0 % Goal: < 7.0 %Additional Action Suggested: > 8.0 %Note: Hemoglobin A1c results are invalid for patients with abnormal amounts of HbF. Blood transfusions may impact the HbA1c concentration in the patient sample. Estimated Average Glucose 163 mg/dL [facility] Comment:eAG = Estimated ave rage glucose which is %A1C expressed asaverage glucose, using the formula of the [id number] Glucose study (ADAG), Diabetes Care, Vol.31,#8,Oct. 2007 08/19/2022 9:03 AM EDT 08/19/2022 11:12 AM EDT [facility] External Provider LAB BLO OD ORDERABLES Final Result Performing Organization Address [facility] Co de Phone Number [facility] [address] [place] [address] [phone] * Lipid Panel, Standard (08/19/2022 9:03 AM EDT) Triglycerides 91 mg/dL [facility] Comment:Desirable Triglyceri de: less than 150 mg/dLBorderline High Triglyceride 150-199 mg/dLHigh Triglyceride: 200-499 mg/dLVery High Triglyceride: greater than or equal to 5OO mg/dL Cholesterol 186 mg/dL [facility] Comment:Desirable Cholestero l: less than 200 mg/dLBorderline High Cholesterol: 200-239 mg/dLHigh Cholesterol: greater than 239 mg/dL LDL Cholesterol Calculated 129 mg/dl [facility] Comment:Desirable LDL: less than 100 mg/dLNear Optimal/Above Optimal LDL: 110- 129 mg/dLBorderline High LDL: 130-159 mg/dLHigh LDL: 160-189 mg/dLVery High LDL: greater than or equal to 190 mg/dL HDL Cholesterol 39 mg/dL [facility] Comment:Desirable HDL: great er than 40 mg/dL Note: This HDL assay may give artificially low results in patients with liver disease. 08/19/2022 9:03 AM EDT 08/19/2022 11:12 AM EDT [facility] External Provider LAB BLO OD ORDERABLES Final Result Performing Organization Address [facility] Co de Phone Number [facility] [address] [place] [address] [phone] * HEPATITIS C AB W/REFL TO HCV RNA, QN, PCR (07/16/2020 9:56 AM EDT) HEPATITIS C ANTIBODY NON-REACT DEN NON-REACT DEN [facility] INDEX 0.02 <1.00 [facility] Comment: ?? HCV antibody was non-reactive. There is no laboratory ?? evidence of HCV infection. ?? In most cases, no further action is required. However, if recent HCV exposure is suspected, a test for HCV RNA (test code 68462) is suggested. ?? For additional information please refer to http://education.[employer].MyScienceWork/faq/TJL73i7 (This link is being provided for informational/ educational purposes only.) ?? 07/16/2020 9:56 AM EDT Davida Webb DOWN FILLER HISTORICAL/NON ORDERABLE LABS Final Result Performing Organization Address City/[facility]/ZIP Co de Phone Number [facility] [address] [place] [address], * Colonoscopy (05/01/2016) Colonoscopy Normal Normal Narrative Mary Kate Emmanuel - 05/01/2016 Repeat in 10 years Historical Provider HEALTH MAINTENANCE Final Result from Last 3 Months or Most Recently Relevant to Health Maintenance Insurance [facility] MEDICARE DENTAL-[facility] [place] [id number] [place] Care Teams Floor Trader Relationship Specialty Start Date End Date Neptali Palomo DMD [address] [place] [phone] Dentist 05/18/24
--- OUTSIDE RECORDS SUMMARY | 2024-05-25 18:50 | XMS_ITS | Encounter Summary ---
Author Organization [employer] [facility] Address [address] [facility] [address]t [place] [address] Care Team Providers Care Spray Painting Machine Operator Name Role Phone Payal Walker Primary Care Provider [phone] Neptali Palomo DMD Unavailable [phone] Encounter Details Date Type Department Care Team (Latest Contact Info) Description 10/03/2018 Abstract [facility] CONVERSIONS Dental, Provider, DDS Social History Tobacco [...] Upcoming Encounters Date Type Department Care Team ([facility] st Contact Info) Description 06/20/2024 10:30 AM EDT Office Visit [facility] ADULT DENTAL [address] [place], [place] [phone] Neptali Palomo DMD [address] [place] [address] documented as of this encounter Visit Diagnoses Not on filedocumented in this encounter Care Teams Spray Painting Machine Operator Relationship Specialty Start Date End Date Payal Walker ANP [address] [place] [address] PCP - General Family Medicine 11/20/21 08/04/23 Neptali Palomo DMD [address] [place], [place] Dentist 05/18/24 documented as of this encounter
--- OUTSIDE RECORDS SUMMARY | 2024-05-25 18:50 | XMS_ITS | Encounter Summary ---
Author Organization [facility] Address [address] [facility] 7[address] [place] [address] Care Team Providers Care On Air Personality Name Role Phone Payal Walker Primary Care Provider [phone] Neptali Palomo DMD Unavailable [phone] Encounter Details Date Type Department Care Team (Latest Contact Info) Description 02/12/2020 Abstract [facility] CONVERSIONS Dental, Provider, DDS Social History [...] Upcoming Encounters Date Type Department Care Team ([facility] st Contact Info) Description 06/20/2024 10:30 AM EDT Office Visit [facility]C ADULT DENTAL [address] [place], [place] [phone] Neptali Palomo DMD [address] [place] [address] documented as of this encounter Visit Diagnoses Not on filedocumented in this encounter Care Teams On Air Personality Relationship Specialty Start Date End Date Payal Walker ANP [address] [place] [address] PCP - General Family Medicine 11/20/21 08/04/23 Neptali Palomo DMD [address] [place], [place] Dentist 05/18/24 documented as of this encounter
--- OUTSIDE RECORDS SUMMARY | 2024-05-25 18:50 | XMS_ITS | Encounter Summary ---
Author Organization [employer] Address [address] [facility] 7t [place] [address] Care Team Providers Care Fraternity House Cook Name Role Phone DeweyNeptali jurado DMD Unavailable [phone] Reason for Visit * Reason Comments Filling PATIENT PRESENTS TOSharmaine RECIO FOR FILLING #10,11 ALMA PERERA Encounter Details Date Type Department Care Team ([facility] st Contact Info) Description 05/18/2024 10:00 AM EST Office Visit [facility] ADULT DENT[facility] [address] [place] [address] Neptali Palomo, DMD [address] [place] [address] Defective dental sikhism (Primary Dx) Social History Tobacco Use Types Packs/Day Years [...] Pressure 130/80 05/18/2024 10:20 AM EST Pulse - - Temperature - - Respiratory Rate - - Oxygen Saturation - - Inhaled Oxygen Concentration - - Weight - - Height - - Body Mass Index - - documented in this encounter Progress Notes * Neptali Palomo DMD - 05/18/2024 10:00 AM EST Patient ID: Jessica Amin is a 63 y.o. male. Time Out: Timeout Date: 05/18/24, Timeout Time: 1020 (ERMA # 10,12,13) Location: [facility] Tooth: #10 and #11 Procedure: Jainism Verified the above with patient, faculty research assistant, and provider. Confirmed via patient's chart, intraorally and by radiographs. Manufacturing Controls Engineer: Yes. Language: Croatian. Manufacturing Controls Engineer's Name: Alma PERERA Chief Complaint Patient presents with Filling PATIENT PRESENTS TODAY FOR FILLING #10,11 ALMA RDA Medical Hx: Vitals: Blood pressure 130/80. Medications, Med Hx reviewed with patient and updated in chart. Consent Obtained: The risks, benefits, indications, potential complications, and alternatives were explained to the patient and informed consent was obtained with good understanding. 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 Isolation: high speed suction, cotton rolls, and cheek guard Prep: All caries removed, Existing sikhism removed, and Preparation finalized Matrix: Mylar Strip and wedge for #10 interproximal and size 000 cord soaked in hemodent placed in sulcus of #10,11. Verified removal prior to discharge Etch: 37% Phosphoric Acid Etch Desensitizer: Gluma Liner/Base: None Nieto: I-Nieto Jainism Material: Voco Grandioso Packable Shade: A3 Polished. Occlusion & contacts verified. Patient satisfied with comfort and esthetics. Patient tolerated procedure well. Post-operative instructions were given. Patient departed alert, oriented, and in stable condition. NV: #12,13 restos Casino Manager: Alma Frias Dentist: Neptali Palomo DMD documented in this encounter Plan of Treatment Upcoming Encounters Date Type Department Care Team (Late st Contact Info) Description 06/20/2024 10:30 AM EDT Office Visit [facility] ADULT DENTAL [address] [place] [address] Neptali Palomo DMD [address] [place] [address] documented as of this encounter Procedures Procedure Name Priority Date/Time Associated Diagnosis Comments 10 MFF(V)L RESIN-BASED COMPOSITE - 3 SURF, ANTERIOR Routine 05/18/2024 10:00 AM EST Defective dental sikhism 11 F(V) RESIN-BASED COMPOSITE - 1 SURF, ANTERIOR Routine 05/18/2024 10:00 AM EST Defective dental sikhism CASE PRESENTATION, DETAILED AND EXTENSIVE TREATMENT PLANNING Routine 05/18/2024 10:00 AM EST Defective dental sikhism documented in this encounter Visit Diagnoses Diagnosis Defective dental sikhism- Primary Unspecified unsatisfactory sikhism of tooth documented in this encounter Additional Health Concerns Assessment Noted Time PHQ-9 Depression Total Score: 0 08/05/19 23 2:13 PM EDT documented as of this encounter Care Teams Fraternity House Cook Relationship Specialty Start Date End Date Neptali Palomo DMD [address] [place] [address] Dentist 05/18/24 documented as of this encounter
--- OUTSIDE RECORDS SUMMARY | 2024-05-25 18:50 | XMS_ITS | Encounter Summary ---
Author Organization [employer] Address [address] [facility] 7t [place] [address] Care Team Providers Care Manager Crisis Name Role Phone Neptali Palomo DMD Unavailable [phone] Reason for Visit * Reason Comments Med Refill Encounter Details Date Type Department Care Team (Late st Contact Info) Description 01/28/2024 Refill [facility] MEDICINE [address] [place], [place] [phone] Payal Walker, ANP [address] [place], [place] [phone] Type 2 diabetes mellitus with hyperlipidemia ([facility]/HCC) ([facility]) Social History Tobacco Use Types [...] Description 06/20/2024 10:30 AM EDT Office Visit [facility] ADULT DENTAL [address] [place] [address] Neptali Palomo DMD [address] [place] [address] documented as of this encounter Visit Diagnoses Diagnosis Type 2 diabetes mellitus with hyperlipidemia (CMS/HCC) (CMS/HCC) documented in this encounter Additional Health Concerns Assessment Noted Time PHQ-9 Depression Total Score: 0 08/05/19 23 2:13 PM EDT documented as of this encounter Care Teams Manager Crisis Relationship Specialty Start Date End Date Neptali Palomo DMD [address] [place] [address] Dentist 05/18/24 documented as of this encounter
--- OUTSIDE RECORDS SUMMARY | 2024-05-25 18:50 | XMS_ITS | Encounter Summary ---
Author Organization [employer] Address [address] [facility] [address] 7[address] [place] [address] Care Team Providers Care Shaft Tender Name Role Phone Walker Payal RUANO Primary Care Provider [phone] Neptali Palomo DMD Unavailable Encounter Details Date Type Department Care Team (Late st Contact Info) Description 02/16/2023 Abstract [facility] MEDICINE [address] [place], [place] [phone] Mary Kate Emmanuel Social History Tobacco Use [...] Description 06/20/2024 10:30 AM EDT Office Visit [facility] ADULT DENTAL [address] [place] [address] Neptali Palomo DMD 505 [place] [address] documented as of this encounter Procedures Procedure [...] documented as of this encounter Care Teams Shaft Tender Relationship Specialty Start Date End Date Payal Walker ANP [address] [place] [address] PCP - General Family Medicine 11/20/21 08/04/23 Neptali Palomo DMD 505 [place] [address] Dentist 05/18/24 documented as of this encounter
--- OUTSIDE RECORDS SUMMARY | 2024-05-25 18:50 | XMS_ITS | Encounter Summary ---
Author Organization [employer] Address [address] [facility] [address] 7[address] [place] [address] Care Team Providers Care Director Education Name Role Phone Neptali Palomo DMD Unavailable [phone] Reason for Visit * Reason Comments Med Refill Encounter Details Date Type Department Care Team (Late st Contact Info) Description 11/01/2023 Refill [facility] MEDICINE 230 [place], [place] [phone] Payal Walker, ANP [address] [place], [place] [phone] Primary hypertension Social History Tobacco Use Types [...] Description 06/20/2024 10:30 AM EDT Office Visit [facility] ADULT DENTAL 505 [place] [address] Neptali Palomo DMD 505 [place] [address] documented as of this encounter Visit Diagnoses Diagnosis Primary hypertension Unspecified essential hypertension documented in this encounter Additional Health Concerns Assessment Noted Time PHQ-9 Depression Total Score: 0 08/05/19 23 2:13 PM EDT documented as of this encounter Care Teams Director Education Relationship Specialty Start Date End Date Neptali Palomo DMD 505 [place] [address] Dentist 05/18/24 documented as of this encounter
--- OUTSIDE RECORDS SUMMARY | 2024-05-25 18:50 | XMS_ITS | Encounter Summary ---
Author Organization [email or web address] Address [address] [facility] [address] [place] [address] Care Team Providers Care Manager Cosmetic Name Role Phone Aaron Payal RUANO Primary Care Provider [phone] Neptali Palomo DMD Unavailable [phone] Reason for Visit * Reason Comments Med Refill Encounter Details Date Type Department Care Team ([facility] st Contact Info) Description 06/25/2023 Refill [facility] MEDICINE 230 [place], [place] [phone] Siena Greenwood MD [address] [place], [place] [phone] GERD without esophagitis Social History Tobacco Use [...] Description 06/20/2024 10:30 AM EDT Office Visit [facility] ADULT DENTAL 505 [place] [address] Neptali Palomo DMD 505 [place] [address] documented as of this encounter Visit Diagnoses Diagnosis GERD without esophagitis Esophageal reflux documented in this encounter Additional Health Concerns Assessment Noted Time PHQ-9 Depression Total Score: 0 08/05/19 23 2:13 PM EDT documented as of this encounter Care Teams Manager Cosmetic Relationship Specialty Start Date End Date Payal Walker ANP [address] [place] [address] PCP - General Family Medicine 11/20/21 08/04/23 Neptali Palomo DMD 505 [place] [address] Dentist 05/18/24 documented as of this encounter
--- OUTSIDE RECORDS SUMMARY | 2024-05-25 18:50 | XMS_ITS | Encounter Summary ---
Author Organization [employer] Address [address] [facility] [address] 7t [place] [address] Care Team Providers Care Overnight Cashier Name Role Phone Neptali Palomo DMD Unavailable [phone] Reason for Visit * Reason Comments Med Refill Encounter Details Date Type Department Care Team (Late st Contact Info) Description 04/14/2024 Refill [facility] MEDICINE 230 [place], [place] [phone] Payal Walker, ANP 230 [place], [place] [phone] Type 2 diabetes mellitus with hyperlipidemia ([facility]/HCC) ([facility]) Social History Tobacco Use Types Packs/Day Years [...] Description 06/20/2024 10:30 AM EDT Office Visit [facility] ADULT DENTAL 505 [place] [address] Neptali Palomo DMD 505 [place] [address] documented as of this encounter Visit Diagnoses Diagnosis Type 2 diabetes mellitus with hyperlipidemia (CMS/HCC) (CMS/HCC) documented in this encounter Additional Health Concerns Assessment Noted Time PHQ-9 Depression Total Score: 0 08/05/19 23 2:13 PM EDT documented as of this encounter Care Teams Overnight Cashier Relationship Specialty Start Date End Date Neptali Palomo DMD 505 [place] [address] Dentist 05/18/24 documented as of this encounter
--- OUTSIDE RECORDS SUMMARY | 2024-05-25 18:50 | XMS_ITS | Encounter Summary ---
Author Organization [employer] Address [address] [facility] [address] 7[address] [place] [address] Care Team Providers Care District Manager Postal Service Name Role Phone Neptali Palomo DMD Unavailable [phone] Reason for Visit * Reason Comments Med Refill Encounter Details Date Type Department Care Team (Late st Contact Info) Description 10/22/[address] [facility] MEDICINE 230 [place], [place] [phone] Payal Walker, ANP 230 [place], [place] [phone] Type 2 diabetes mellitus with hyperlipidemia ([facility]/HCC) ([facility]) Social History Tobacco Use Types [...] Description 06/20/2024 10:30 AM EDT Office Visit [facility] ADULT DENTAL 505 [place] [address] Neptali Palomo DMD [address] [place] [address] documented as of this encounter Visit Diagnoses Diagnosis Type 2 diabetes mellitus with hyperlipidemia (CMS/HCC) (CMS/HCC) documented in this encounter Additional Health Concerns Assessment Noted Time PHQ-9 Depression Total Score: 0 08/05/19 23 2:13 PM EDT documented as of this encounter Care Teams District Manager Postal Service Relationship Specialty Start Date End Date Neptali Palomo DMD 505 [place] [address] Dentist 05/18/24 documented as of this encounter
--- OUTSIDE RECORDS SUMMARY | 2024-05-25 18:50 | XMS_ITS | Encounter Summary ---
Author Organization [employer] Address 75 [facility] 7t [place] [address] Care Team Providers Care Electric Meter Repairer Apprentice Name Role Phone Aaron Payal RUANO Primary Care Provider [phone] Neptali Palomo DMD Unavailable [phone] Reason for Visit * Reason Comments Med Refill Encounter Details Date Type Department Care Team (Late st Contact Info) Description 10/20/2022 Refill [facility] MEDICINE 230 [place], [place] [phone] [place] [facility] 230 [place] [address] Social History Tobacco Use Types Packs/Day Years [...] Description 06/20/2024 10:30 AM EDT Office Visit [facility] ADULT DENTAL 505 [place], [place] [phone] Neptali Palomo, JESSICA 505 [place], [place] [phone] documented as of this encounter Visit Diagnoses Not on filedocumented in this encounter Additional Health Concerns Assessment Noted Time PHQ-9 Depression Total Score: 0 08/05/19 23 2:13 PM EDT documented as of this encounter Care Teams Electric Meter Repairer Apprentice Relationship Specialty Start Date End Date Payal Walker ANP [address] [place] [address] PCP - General Family Medicine 11/20/21 08/04/23 Neptali Palomo DMD [address] [place] [address] Dentist 05/18/24 documented as of this encounter
--- OUTSIDE RECORDS SUMMARY | 2024-05-25 18:50 | XMS_ITS | Encounter Summary ---
Author Organization [employer] Address [address] [facility] [address] 7[address] [place] [address] Care Team Providers Care Shredding Floor Equipment Operator Name Role Phone Neptali Palomo DMD Unavailable [phone] Reason for Visit * Reason Comments Med Refill Encounter Details Date Type Department Care Team (Late st Contact Info) Description 01/28/2024 Refill [facility] MEDICINE 230 [place], [place] [phone] Payal Walker, ANP 230 [place], [place] [phone] Social History Tobacco Use Types Packs/Day Years [...] Description 06/20/2024 10:30 AM EDT Office Visit [facility] ADULT DENTAL 505 [place] [address] Neptali Palomo DMD 505 [place] [address] documented as of this encounter Visit Diagnoses Not on filedocumented in this encounter Additional Health Concerns Assessment Noted Time PHQ-9 Depression Total Score: 0 08/05/19 23 2:13 PM EDT documented as of this encounter Care Teams Shredding Floor Equipment Operator Relationship Specialty Start Date End Date Neptali Palomo DMD 505 [place] [address] Dentist 05/18/24 documented as of this encounter
--- OUTSIDE RECORDS SUMMARY | 2024-05-25 18:50 | XMS_ITS | Encounter Summary ---
Author Organization [employer] Address [address] [facility] [address] [facility] [address] [place] [address] Care Team Providers Care Single Fold Machine Operator Name Role Phone Neptali Palomo DMD Unavailable [phone] Reason for Visit * Reason Comments Med Refill Encounter Details Date Type Department Care Team (Late st Contact Info) Description 12/09/2023 Refill [facility] MEDICINE 230 [place], [place] [phone] Payal Walker, ANP 230 [place], [place] [phone] Type 2 diabetes mellitus with hyperlipidemia (CMS/HCC) ([facility]); Primary hypertension Social History Tobacco Use Types [...] Description 06/20/2024 10:30 AM EDT Office Visit [facility] ADULT DENTAL 505 [place] [address] Neptali Palomo DMD 505 [place] [address] documented as of this encounter Visit Diagnoses Diagnosis Type 2 diabetes mellitus with hyperlipidemia (CMS/HCC) (CMS/HCC) Primary hypertension Unspecified essential hypertension documented in this encounter Additional Health Concerns Assessment Noted Time PHQ-9 Depression Total Score: 0 08/05/19 23 2:13 PM EDT documented as of this encounter Care Teams Single Fold Machine Operator Relationship Specialty Start Date End Date Neptali Palomo DMD 505 [place] [address] Dentist 05/18/24 documented as of this encounter
== END 2024-05-25 15:30 | disposition home or self-care (01) ==
LOC: HO.MRI 15:29
PROVIDERS: PCP Nurse Practitioner Family; Visit Provider Nurse Practitioner Family
DX: K86.3 Pseudocyst of pancreas (principal); K86.2 Cyst of pancreas
CPT/HCPCS: 74183; A9585

== ENCOUNTER → 2024-05-25 15:41 | Outpatient (BNV) | payer MEDICARE, MEDICAID, SELFPAY | PROVIDERS: PCP Nurse Practitioner Family; Visit Provider Radiology Diagnostic Radiology | DX: K86.3 Pseudocyst of pancreas (principal); I82.891 Chronic embolism and thrombosis of other specified veins | CPT/HCPCS: 74183 ==

== ENCOUNTER 2024-06-05 09:31 | Outpatient (AMB) | payer MEDICARE, MEDICAID, SELFPAY ==
--- OUTSIDE RECORDS SUMMARY | 2024-06-05 10:19 | XMS_ITS | Encounter Summary ---
Author Organization [employer] Address 75 [facility] 7t [place] [address] Care Team Providers Care Headstart Teacher Name Role Phone Aaron Payal RUANO Primary Care Provider [phone] Neptali Palomo DMD Unavailable [phone] Reason for Visit * Reason Comments Med Refill Encounter Details Date Type Department Care Team (Late st Contact Info) Description 10/20/2022 Refill [facility] MEDICINE 230 [place], [place] [phone] [place] [facility] 230 [place] [address] Social History Tobacco Use Types Packs/Day Years [...] Description 06/20/2024 10:30 AM EDT Office Visit [facility] ADULT DENTAL 505 [place], [place] [phone] Neptali Palomo, JESSICA 505 [place], [place] [phone] documented as of this encounter Visit Diagnoses Not on filedocumented in this encounter Additional Health Concerns Assessment Noted Time PHQ-9 Depression Total Score: 0 08/05/19 23 2:13 PM EDT documented as of this encounter Care Teams Headstart Teacher Relationship Specialty Start Date End Date Payal Walker ANP [address] [place] [address] PCP - General Family Medicine 11/20/21 08/04/23 Neptali Palomo DMD [address] [place] [address] Dentist 05/18/24 documented as of this encounter
--- OUTSIDE RECORDS SUMMARY | 2024-06-05 10:20 | XMS_ITS | Encounter Summary ---
Author Organization [employer] Address [address] [facility] [address] 7t [place] [address] Care Team Providers Care Tile Mechanic Helper Name Role Phone Neptali Palomo DMD Unavailable [phone] Reason for Visit * Reason Comments Med Refill Encounter Details Date Type Department Care Team (Late st Contact Info) Description 11/01/2023 Refill [facility] MEDICINE 230 [place], [place] [phone] Payal Walker, ANP 230 [place], [place] [phone] Primary hypertension Social History Tobacco Use Types [...] AM EDT Office Visit [facility] ADULT DENTAL 505 [place] [address] Neptali Palomo DMD 505 [place] [address] documented as of this encounter Visit Diagnoses Diagnosis Primary hypertension Unspecified essential hypertension documented in this encounter Additional Health Concerns Assessment Noted Time PHQ-9 Depression Total Score: 0 08/05/19 23 2:13 PM EDT documented as of this encounter Care Teams Tile Mechanic Helper Relationship Specialty Start Date End Date Neptali Palomo DMD 505 [place] [address] Dentist 05/18/24 documented as of this encounter
--- OUTSIDE RECORDS SUMMARY | 2024-06-05 10:20 | XMS_ITS | Encounter Summary ---
Author Organization [employer] Address 75 [facility] 7t [place] [address] Care Team Providers Care Box Spring Upholsterer Name Role Phone DeweyNeptali jurado DMD Unavailable [phone] Reason for Visit * Reason Comments Filling PATIENT PRESENTS TOSharmaine AY FOR FILLING #10,11 ALMA PERERA Encounter Details Date Type Department Care Team ([facility] st Contact Info) Description 05/18/2024 10:00 AM EST Office Visit [facility] ADULT DENTAL [address] [place] [address] Neptali Palomo, DMD [address] [place] [address] Defective dental synagogue (Primary Dx) Social History Tobacco Use Types [...] Timeout Time: 1020 (ERMA # 10,12,13) Location: [facility] Tooth: #10 and #11 Procedure: Hindu Verified the above with patient, assistant health educator, and provider. Confirmed via patient's chart, intraorally and by radiographs. Dials Supervisor: Yes. Language: French. Dials Supervisor's Name: Alma PERERA Chief Complaint Patient presents [...] cheek guard Prep: All caries removed, Existing synagogue removed, and Preparation finalized Matrix: Mylar Strip and wedge for #10 interproximal and size 000 cord soaked in hemodent placed in sulcus of #10,11. Verified removal prior to discharge Etch: 37% Phosphoric Acid Etch Desensitizer: Gluma Liner/Base: None Nieto: I-Nieto Hindu Material: Voco Grandioso Packable Shade: A3 Polished. Occlusion & contacts verified. Patient satisfied with comfort and esthetics. Patient tolerated procedure well. Post-operative instructions were given. Patient departed alert, oriented, and in stable condition. NV: #12,13 restos Zoogler: Alma Frias Dentist: Neptali Palomo DMD documented in this encounter Plan of Treatment Upcoming Encounters Date Type Department Care Team (Late st Contact Info) Description 06/20/2024 10:30 AM EDT Office Visit [facility] ADULT DENTAL 505 [place] [address] Neptali Palomo DMD 505 [place] [address] documented as of this encounter Procedures Procedure Name Priority Date/Time Associated Diagnosis Comments 10 MFF(V)L RESIN-BASED COMPOSITE - 3 SURF, ANTERIOR Routine 05/18/2024 10:00 AM EST Defective dental synagogue 11 F(V) RESIN-BASED COMPOSITE - 1 SURF, ANTERIOR Routine 05/18/2024 10:00 AM EST Defective dental synagogue CASE PRESENTATION, DETAILED AND EXTENSIVE TREATMENT PLANNING Routine 05/18/2024 10:00 AM EST Defective dental synagogue documented in this encounter Visit Diagnoses Diagnosis Defective dental synagogue- Primary Unspecified unsatisfactory synagogue of tooth documented in this encounter Additional Health Concerns Assessment Noted Time PHQ-9 Depression Total Score: 0 08/05/19 23 2:13 PM EDT documented as of this encounter Care Teams Box Spring Upholsterer Relationship Specialty Start Date End Date Neptali Palomo DMD 505 [place] [address] Dentist 05/18/24 documented as of this encounter
--- OUTSIDE RECORDS SUMMARY | 2024-06-05 10:20 | XMS_ITS | Clinical Summary ---
Author Organization [employer] Address [address] [facility] 7t [place] [address] Care Team Providers Care Supervisor Slashing Department Name Role Phone Neptali Palomo DMD Unavailable [phone] Allergies Active Allergy Reactions Criticality Noted [...] ype 2 diabetes mellitus with hyperlipidemia (CMS/HCC) (CMS/[facility]) Use 1 by To Skin route once daily 100 each 3 05/14/19 23 Active Blood Glucose Monitoring Suppl (FreeStyle Lite) w/Device kitIndications:Typ e 2 diabetes mellitus without complication, unspecified whether manager long term care insulin use (CMS/[facility]) 1 each before breakfast, before lunch, and before evening meal. 1 kit 07/11/19 23 Active Continuous Blood Gluc Cinder Snapper (FreeStyle Agatha 2 [place]) deviceIndications: Type 2 diabetes mellitus with hyperlipidemia (CMS/HCC) (CMS/HCC) 1 each 5 (five) times a day. 1 each 07/28/19 23 Active Continuous Blood Gluc Sensor (FreeStyle Agatha 2 Sensor) miscIndications:Ty pe 2 diabetes mellitus with hyperlipidemia (CMS/HCC) ([facility]) 1 each every 14 (fourteen) days. 6 [...] fasting and chem -referred to neurologist at [place] x stroke f up and to f CT ,MRI findings --unsure if actual aneurysm in CTA? 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 Mild nodularity increases suspicion for cirrhosis Encounters Date Type Department Care Team Description 05/18/2024 10:00 AM EST Office Visit [facility] ADULT DENTAL [address] [place] [address] Neptali Palomo DMD Defective dental gnosticist (Primary Dx) 04/14/2024 Refill [facility] MEDICINE [address] [place] [address] Payal Walker ANP Type 2 diabetes mellitus with hyperlipidemia (CMS/HCC) ([facility]/HCC) 04/13/2024 9:00 AM EST Office Visit [facility] ADULT DENTAL [address] [place] [address] Neptali Palomo DMD Full coverage crown needed for root canal-treated tooth (Primary Dx); Full coverage crown needed for tooth at risk for fracture 03/23/2024 2:00 PM EST Office Visit [facility] ADULT DENTAL [address] [place] [address] Neptali Palomo DMD Full coverage crown needed for tooth at risk for fracture (Primary Dx); Full coverage crown needed for root canal-treated tooth from Last 3 Months Immunizations Name Administration [...] Description 06/20/2024 10:30 AM EDT Office Visit [facility] ADULT DENTAL [address] [place] [address] Neptali Palomo DMD [address] [place] [address] Health Maintenance Due Date Last Done Comments [...] Additional history exists Lipid Panel 08/20/2023 08/19/2022, 06/28, 07/16/2020, Additional history exists COVID-19 Vaccine ( season) 2023 04/16/2022, 02/28/2021, 07/05/2020, Additional history exists Dental Oral Exam 05/31/2024 12/01/2023, 07/2019, 02/02/2018, Additional history exists Dental Prophylaxis 05/31/2024 12/01/2023, 0 10/23/2020, 02/12/2020, Additional history exists Dental X-Ray: Bitewings 12/01/2024 12/01/19 24, 02/01/2023, 02/01/2020, Additional history exists Tobacco Screening 05/18/2025 05/18/2024 Colonoscopy 05/01/2026 05/01/2016 Colorectal Cancer Screening 05/01/2026 Dental X-Ray: Full Mouth 12/01/2026 12/01/2023, 03/2017 DTaP/Tdap/Td Vaccines (2 - Td or [...] Routine 05/18/2024 10:00 AM EST Defective dental gnosticist 11 F(V) RESIN-BASED COMPOSITE - 1 SURF, ANTERIOR Routine 05/18/2024 10:00 AM EST Defective dental gnosticist 10 MFF(V)L RESIN-BASED COMPOSITE - 3 SURF, ANTERIOR Routine 05/18/2024 10:00 AM EST Defective dental gnosticist CASE PRESENTATION, DETAILED AND EXTENSIVE TREATMENT PLANNING [...] needed for tooth at risk for fracture PROPHYLAXIS - ADULT Routine 12/01/2023 2 :00 [...] 9:03 AM EDT) Creatinine, Urine 89.78 mg/dL [facility] Microalbumin Urine 59.0 mg/L [facility] Microalbum Creatinine Ratio Ur 65.7 ug/mg cr [facility] Comment:Albumin/Creatinine R atio Reference Ranges: Normal: < 30 ug/mg creatinine Microalbuminuria: 30 - 300 ug/mg creatinineClinical Albuminuria: > 300 ug/mg creatinine 08/19/2022 9:03 AM EDT 08/19/2022 11:06 AM EDT us [facility] External Provider LAB URI NE ORDERABLES Final Result [facility] [address] [place] [phone] * Hemoglobin A1c (08/19/2022 9:03 AM EDT) Hemoglobin A1c 7.3 % [facility] Comment:Hemoglobin A1C Refer ence Range Adults: 4.8 - 6.0 % Non diabetic: < 6.0 % Goal: < 7.0 %Additional Action Suggested: > 8.0 %Note: Hemoglobin A1c results are invalid for patients with abnormal amounts of HbF. Blood transfusions may impact the HbA1c concentration in the patient sample. Estimated Average Glucose 163 mg/dL [facility] Comment:eAG = Estimated ave rage glucose which is %A1C expressed asaverage glucose, using the formula of the N6C-RiokamfHyfnqfi Glucose study (ADAG), Diabetes Care, Vol.31,#8,Oct. 2007 08/19/2022 9:03 AM EDT 08/19/2022 11:12 AM EDT us [facility] External Provider LAB BLO OD ORDERABLES Final Result [facility] [address] [place] [phone] * Lipid Panel, Standard (08/19/2022 9:03 AM EDT) Triglycerides 91 mg/dL [facility] Comment:Desirable Triglyceri de: less than 150 mg/dLBorderline High Triglyceride 150-199 mg/dLHigh Triglyceride: 200-499 mg/dLVery High Triglyceride: greater than or equal to 5OO mg/dL Cholesterol 186 mg/dL [facility] Comment:Desirable Cholestero l: less than 200 mg/dLBorderline High Cholesterol: 200-239 mg/dLHigh Cholesterol: greater than 239 mg/dL LDL Cholesterol Calculated 129 mg/dl [facility] Comment:Desirable LDL: less than 100 mg/dLNear Optimal/Above Optimal LDL: 110- 129 mg/dLBorderline High LDL: 130-159 mg/dLHigh LDL: 160-189 mg/dLVery High LDL: greater than or equal to 190 mg/dL HDL Cholesterol 39 mg/dL [facility] Comment:Desirable HDL: great er than 40 mg/dL Note: This HDL assay may give artificially low results in patients with liver disease. 08/19/2022 9:03 AM EDT 08/19/2022 11:12 AM EDT [facility] External Provider LAB BLO OD ORDERABLES Final Result Performing Organization Address City/[facility]/ZIP Co de Phone Number [facility] [address] [place] [address] [phone] * HEPATITIS C AB W/REFL TO HCV RNA, QN, PCR (07/16/2020 9:56 AM EDT) Pathologist [facility] HEPATITIS C ANTIBODY NON-REACT DEN NON-REACT DEN [facility] INDEX 0.02 <1.00 [facility] Comment: ?? HCV antibody was non-reactive. There is no laboratory ?? evidence of HCV infection. ?? In most cases, no further action is required. However, if recent HCV exposure is suspected, a test for HCV RNA (test code 71250) is suggested. ?? For additional information please refer to http://education.Year Up/faq/KES38p2 (This link is being provided for informational/ educational purposes only.) ?? 07/16/2020 9:56 AM EDT Davida Webb OPERATION MANAGER HISTORICAL/NON ORDERABLE LABS Final Result Performing Organization Address [facility] Co de Phone Number [facility] [address] [place] [address], * Colonoscopy (05/01/2016) Pathologist [facility] Colonoscopy Normal Normal Narrative LienMary Kate horn - 05/01/2016 Repeat in 10 years Historical Provider MD HEALTH MAINTENANCE Final Result from Last 3 Months or Most Recently [place] [address] [facility] [place] [address] [facility]AL[facility] MEDICAID STAND ADULT LU[place] LUIS Gomez Care Teams Supervisor Slashing Department Relationship Specialty Start Date End Date Neptali Palomo DMD [address] [place] [address] Dentist 05/18/24
--- OUTSIDE RECORDS SUMMARY | 2024-06-05 10:20 | XMS_ITS | Encounter Summary ---
Author Organization [employer] [facility] Address [address] [facility] 7t [place] [address] Care Team Providers Care Anthropology And Archeology Instructor Name Role Phone Payal Walker Primary Care Provider [phone] Neptali Palomo DMD Unavailable [phone] Encounter Details Date Type Department Care Team (Latest Contact Info) Description 02/12/2020 Abstract [facility] CONVERSIONS Dental, Provider, DDS Social [...] Upcoming Encounters Date Type Department Care Team ([facility] st Contact Info) Description 06/20/2024 10:30 AM EDT Office Visit [facility] CHC ADULT DENTAL [address] [place], [place] [phone] Neptali Palomo DMD [address] [place] [address] documented as of this encounter Visit Diagnoses Not on filedocumented in this encounter Care Teams Anthropology And Archeology Instructor Relationship Specialty Start Date End Date Payal Walker ANP [address] [place] [address] PCP - General Family Medicine 11/20/21 08/04/23 Neptali Palomo DMD [address] [place], [place] Dentist 05/18/24 documented as of this encounter
--- OUTSIDE RECORDS SUMMARY | 2024-06-05 10:20 | XMS_ITS | Encounter Summary ---
Author Organization [employer] Address [address] 7t [place] [address] Care Team Providers Care Trainman Name Role Phone Neptali Palomo DMD Unavailable [phone] Reason for Visit * Reason Comments Med Refill Encounter Details Date Type Department Care Team (Late st Contact Info) Description 11/04/2023 Refill [facility] MEDICINE [address] [place], [place] [phone] Payal Walker, ANP [address] [place], [place] [phone] Type 2 diabetes mellitus with hyperlipidemia ([facility]/HCC) ([facility]) Social History Tobacco Use [...] Description 06/20/2024 10:30 AM EDT Office Visit [facility] ADULT DENTAL [address] [place] [address] Neptali Palomo DMD [address] [place] [address] documented as of this encounter Visit Diagnoses Diagnosis Type 2 diabetes mellitus with hyperlipidemia (CMS/HCC) (CMS/HCC) documented in this encounter Additional Health Concerns Assessment Noted Time PHQ-9 Depression Total Score: 0 08/05/19 23 2:13 PM EDT documented as of this encounter Care Teams Trainman Relationship Specialty Start Date End Date Neptali Palomo DMD [address] [place] [address] Dentist 05/18/24 documented as of this encounter
--- OUTSIDE RECORDS SUMMARY | 2024-06-05 10:20 | XMS_ITS | Encounter Summary ---
Author Organization [employer] Address [address] 7[address] [place] [address] Care Team Providers Care Supervisor Frame Assembly Name Role Phone Neptali Palomo DMD Unavailable [phone] Reason for Visit * Reason Comments Med Refill Encounter Details Date Type Department Care Team (Late st Contact Info) Description 04/14/2024 Refill [facility] MEDICINE [address] [place], [place] [phone] Payal Walker, ANP [address] [place], [place] [phone] Type 2 diabetes mellitus with hyperlipidemia ([facility]/HCC) ([facility]) Social History Tobacco Use Types [...] Description 06/20/2024 10:30 AM EDT Office Visit [facility] ADULT DENTAL [address] [place] [address] Neptali Palomo DMD [address] [place] [address] documented as of this encounter Visit Diagnoses Diagnosis Type 2 diabetes mellitus with hyperlipidemia (CMS/HCC) (CMS/HCC) documented in this encounter Additional Health Concerns Assessment Noted Time PHQ-9 Depression Total Score: 0 08/05/19 23 2:13 PM EDT documented as of this encounter Care Teams Supervisor Frame Assembly Relationship Specialty Start Date End Date Neptali Palomo DMD [address] [place] [address] Dentist 05/18/24 documented as of this encounter
--- OUTSIDE RECORDS SUMMARY | 2024-06-05 10:20 | XMS_ITS | Encounter Summary ---
Author Organization [employer] Address [address] 7t [place] [address] Care Team Providers Care Cosmetic Counselor Name Role Phone Neptali Palomo DMD Unavailable [phone] Reason for Visit * Reason Comments Med Refill Encounter Details Date Type Department Care Team (Late st Contact Info) Description 12/09/2023 Refill [facility] MEDICINE [address] [place], [place] [phone] Payal Walker, ANP [address] [place], [place] [phone] Type 2 diabetes mellitus with hyperlipidemia (CMS/HCC) ([facility]); Primary hypertension Social History Tobacco Use Types [...] AM EDT Office Visit [facility] ADULT DENTAL [address] [place] [address] Neptali Palomo DMD [address] [place] [address] documented as of this encounter Visit Diagnoses Diagnosis Type 2 diabetes mellitus with hyperlipidemia (CMS/HCC) (CMS/HCC) Primary hypertension Unspecified essential hypertension documented in this encounter Additional Health Concerns Assessment Noted Time PHQ-9 Depression Total Score: 0 08/05/19 23 2:13 PM EDT documented as of this encounter Care Teams Cosmetic Counselor Relationship Specialty Start Date End Date Neptali Palomo DMD [address] [place] [address] Dentist 05/18/24 documented as of this encounter
--- OUTSIDE RECORDS SUMMARY | 2024-06-05 10:20 | XMS_ITS | Encounter Summary ---
Author Organization [employer] Address [address] 7[address] [place] [address] Care Team Providers Care Commutator Operator Name Role Phone Walker Payal RUANO Primary Care Provider [phone] Neptali Palomo DMD Unavailable [phone] Reason for Visit * Reason Comments Med Refill Encounter Details Date Type Department Care Team ([facility] st Contact Info) Description 06/25/[address] [facility] MEDICINE [address] [place], [place] [phone] Siena Greenwood MD [address] [place], [place] [phone] GERD without esophagitis Social History Tobacco Use [...] Description 06/20/2024 10:30 AM EDT Office Visit [facility] ADULT DENTAL [address] [place] [address] Neptali Palomo DMD [address] [place] [address] documented as of this encounter Visit Diagnoses Diagnosis GERD without esophagitis Esophageal reflux documented in this encounter Additional Health Concerns Assessment Noted Time PHQ-9 Depression Total Score: 0 08/05/19 23 2:13 PM EDT documented as of this encounter Care Teams Commutator Operator Relationship Specialty Start Date End Date Payal Walker ANP [address] [place] [address] PCP - General Family Medicine 11/20/21 08/04/23 Neptali Palomo DMD [address] [place] [address] Dentist 05/18/24 documented as of this encounter
--- OUTSIDE RECORDS SUMMARY | 2024-06-05 10:20 | XMS_ITS | Encounter Summary ---
Author Organization [employer] [facility] Address [address] [facility] 7t [place] [address] Care Team Providers Care Drapery Counselor Name Role Phone Payal Walker Primary Care Provider [phone] Neptali Palomo DMD Unavailable [phone] Encounter Details Date Type Department Care Team (Latest Contact Info) Description 10/03/[address] [facility] CONVERSIONS Dental, Provider, DDS Social History [...] Upcoming Encounters Date Type Department Care Team ([facility] st Contact Info) Description 06/20/2024 10:30 AM EDT Office Visit [facility] CHC ADULT DENTAL [address] [place], [place] [phone] Neptali Palomo DMD [address] [place] [address] documented as of this encounter Visit Diagnoses Not on filedocumented in this encounter Care Teams Drapery Counselor Relationship Specialty Start Date End Date Payal Walker ANP [address] [place] [address] PCP - General Family Medicine 11/20/21 08/04/23 Neptali Palomo DMD [address] [place], [place] Dentist 05/18/24 documented as of this encounter
--- OUTSIDE RECORDS SUMMARY | 2024-06-05 10:20 | XMS_ITS | Encounter Summary ---
Author Organization [employer] Address [address] [place] [address] Care Team Providers Care Jute Bag Clipper Name Role Phone Neptali Palomo DMD Unavailable [phone] Reason for Visit * Reason Comments Med Refill Encounter Details Date Type Department Care Team (Late st Contact Info) Description 01/28/2024 Refill [facility] MEDICINE [address] [place], [place] [phone] Payal Walker, ANP [address] [place], [place] [phone] Type 2 diabetes mellitus with hyperlipidemia ([facility]/HCC) ([facility]) Social History Tobacco Use [...] Description 06/20/2024 10:30 AM EDT Office Visit [facility] ADULT DENTAL [address] [place] [address] Neptali Palomo DMD [address] [place] [address] documented as of this encounter Visit Diagnoses Diagnosis Type 2 diabetes mellitus with hyperlipidemia (CMS/HCC) (CMS/HCC) documented in this encounter Additional Health Concerns Assessment Noted Time PHQ-9 Depression Total Score: 0 08/05/19 23 2:13 PM EDT documented as of this encounter Care Teams Jute Bag Clipper Relationship Specialty Start Date End Date Neptali Palomo DMD [address] [place] [address] Dentist 05/18/24 documented as of this encounter
--- OUTSIDE RECORDS SUMMARY | 2024-06-05 10:20 | XMS_ITS | Encounter Summary ---
Author Organization [employer] Address [address] [place] [address] Care Team Providers Care Software Engineer Web Applications Name Role Phone Neptali Palomo DMD Unavailable [phone] Reason for Visit * Reason Comments Med Refill Encounter Details Date Type Department Care Team (Late st Contact Info) Description 01/28/2024 Refill [facility] MEDICINE [address] [place], [place] [phone] Payal Walker, ANP [address] [place], [place] [phone] Social History Tobacco Use Types Packs/Day Years [...] Description 06/20/2024 10:30 AM EDT Office Visit [facility] ADULT DENTAL [address] [place] [address] Neptali Palomo DMD [address] [place] [address] documented as of this encounter Visit Diagnoses Not on filedocumented in this encounter Additional Health Concerns Assessment Noted Time PHQ-9 Depression Total Score: 0 08/05/19 23 2:13 PM EDT documented as of this encounter Care Teams Software Engineer Web Applications Relationship Specialty Start Date End Date Neptali Palomo DMD [address] [place] [address] Dentist 05/18/24 documented as of this encounter
--- OUTSIDE RECORDS SUMMARY | 2024-06-05 10:20 | XMS_ITS | Encounter Summary ---
Author Organization [employer] Address [address] [place] [address] Care Team Providers Care Tribunal Member Name Role Phone Walker Payal RUANO Primary Care Provider [phone] Neptali Palomo DMD Unavailable Encounter Details Date Type Department Care Team (Late st Contact Info) Description 02/16/2023 Abstract [facility] MEDICINE [address] [place], [place] [phone] Mary Kate Emmanuel Social History Tobacco Use [...] Description 06/20/2024 10:30 AM EDT Office Visit [facility] ADULT DENTAL [address] [place] [address] Neptali Palomo DMD [address] [place] [address] documented as of this encounter Procedures Procedure [...] documented as of this encounter Care Teams Tribunal Member Relationship Specialty Start Date End Date Payal Walker ANP [address] [place] [phone] PCP - General Family Medicine 11/20/21 08/04/23 Neptali Palomo DMD [address] [place] [address] Dentist 05/18/24 documented as of this encounter
--- OUTSIDE RECORDS SUMMARY | 2024-06-05 10:20 | XMS_ITS | Encounter Summary ---
Author Organization [employer] Address [address] [place] [address] Care Team Providers Care Crate Tier Name Role Phone Neptali Palomo DMD Unavailable [phone] Reason for Visit * Reason Comments Med Refill Encounter Details Date Type Department Care Team (Late st Contact Info) Description 10/22/2023 Refill [facility] MEDICINE [address] [place], [place] [phone] Payal Walker, ANP [address] [place], [place] [phone] Type 2 diabetes mellitus with hyperlipidemia ([facility]/HCC) ([facility]) Social History Tobacco Use Types Packs/Day Years [...] 10:30 AM EDT Office Visit [facility] ADULT DENTAL [address] [place] [address] Neptali Palomo DMD [address] [place] [address] documented as of this encounter Visit Diagnoses Diagnosis Type 2 diabetes mellitus with hyperlipidemia (CMS/HCC) (CMS/HCC) documented in this encounter Additional Health Concerns Assessment Noted Time PHQ-9 Depression Total Score: 0 08/05/19 23 2:13 PM EDT documented as of this encounter Care Teams Crate Tier Relationship Specialty Start Date End Date Neptali Palomo DMD [address] [place] [address] Dentist 05/18/24 documented as of this encounter
--- NOTE | 2024-06-05 10:37 | MHC.AMDMED ---
Intake Intake Visit Reasons: 60 min, pump and ketones education Precinct Commanding Officer Required: Yes Precinct Commanding Officer Language: Medical Videographer Services: Precinct Commanding Officer Present Precinct Commanding Officer Name: Siena [facility] Accompanied by: Self / Same As Patient Allergies codeine [CODEINE] Allergy (Intermediate, Verified 04/21/24 12:43) TACHYCARDIA HPI Comprehensive Diabetes Asmnt Most Recent Diabetes Results: No Data to Display [facility] Medical History Palpitations Pancreatitis Arthritis GERD (gastroesophageal reflux disease) CVA (cerebral vascular accident) Microalbuminuric diabetic nephropathy Type II diabetes with [facility] use of insulin Erectile dysfunction Vitamin D deficiency Multinodular thyroid Other and unspecified hyperlipidemia Essential hypertension Aortic valve calcification Surgical History History of esophagogastroduodenoscopy (EGD) H/O colonoscopy Family History Father Stroke Brother Stroke Mother Diabetes Social History Household Members: Spouse Housing: House Alcohol intake: never Patient Tobacco Use Status: Former Tobacco user e-Cigarette/Vaping Use: Never Used service: No Current occupational status: disabled Cognitive needs: No Hearing needs: No Vision needs: Yes Assessment & Plan Assessment & Plan (1) Type 2 diabetes mellitus with unspecified complications: Code(s): E11.8 - Type 2 diabetes mellitus with unspecified complications Plan: DIABETES PROBLEMS HOMECARE INSTRUCTIONS? for High Blood Sugar and When to Test for Ketones Patient at visit today to review how and why to test for ketones Hyperglycemia is the technical term for high blood glucose (blood sugar). High blood sugar happens when the body has too little insulin or when the body can't use insulin properly. What causes hyperglycemia? A number of things can cause hyperglycemia: If you have type 1, you may not have given yourself enough insulin. ? If you have type 2, your body may have enough insulin, but it is not as effective as it should be. You ate more than planned or exercised less than planned. You have stress from an illness, such as a cold or flu. You have other stress, such as family conflicts or school or dating problems. How to lower your blood sugar level. ? Take medications as directed by physician. ? Drink extra water or noncaffeinated, nonsugared drinks to prevented hydration. ? Exercise if you are not sick However, if your blood sugar is above 250 mg/dl, check your urine for ketones. If you have ketones, do not exercise Exercising when ketones are present may make your blood sugar level go even higher. You'll need to work with your doctor to find the safest way for you to lower your blood sugar level. Regularly check blood sugar or urine for sugar and acetone during illness. Diabetic ketoacidosis (DKA) Is serious condition that can lead to diabetic coma (passing out for a long time) or even . When your cells don't get the glucose they need for energy, your body begins to burn fat for energy, which produces ketones. Ketones are chemicals that the body creates when it breaks down fat to use for energy. The body does this when it doesn?t have enough insulin to use glucose, the body?s normal source of energy. When ketones build up in the blood, they make it more acidic. They are a warning sign that your diabetes is out of control or that you are getting sick. Symptoms of Diabetic Ketoacidosis (DKA) ? DKA usually develops slowly. But when vomiting occurs, this life-threatening condition can develop in a few hours. Early symptoms include the following: ? Thirst or a very dry mouth ? Frequent urination ? High blood glucose (blood sugar) levels ? High levels of ketones in the urine ? Then, other symptoms appear: ? Constantly feeling tired ? Dry or flushed skin ? Nausea, vomiting, or abdominal pain ? (Vomiting can be caused by many illnesses, not just ketoacidosis. If vomiting continues for more than 2 hours, contact your health care provider.) ? Difficulty breathing ? Fruity odor on breath ? A hard time paying attention, or confusion When should you test for ketones? It is advisable to check for ketones under the following conditions when: Your blood glucose is higher than 250mg/dl. Feeling nauseated, throwing up, or have pains in your abdominal region. Have a cold or flu. Have general body fatigue. Feel thirsty or have a very dry mouth. Have flushed skin. Have a fruity breath or a hard time breathing. You feel perplexed or in fog. How to Test Urine for Ketones You can detect ketones with a simple urine test using a test strip, similar to a blood testing strip. Ask your health care provider when and how you should test for ketones. Many experts advise to check your urine for ketones when your blood glucose is more than 250 mg/dl. When you are ill (when you have a cold or the flu, for example), check for ketones every 4 to 6 hours. And check every 4 to 6 hours when your blood sugar is more than 250 mg/dl. Also, check for ketones when you have any symptoms of DKA. How to lower your blood sugar level. ? Take medications as directed by physician. ? Drink extra water or noncaffeinated, nonsugared drinks to prevented hydration. ? Exercise if you are not sick However, if your blood sugar is above 250 mg/dl, check your urine for ketones. If you have ketones, do not exercise Exercising when ketones are present may make your blood sugar level go even higher. You'll need to work with your doctor to find the safest way for you to lower your blood sugar level. Regularly check blood sugar or urine for sugar and acetone during illness Patient given ketone testing handout in Finnish Coding Level of Care Code Est Pt Level 1 (23621) Diagnoses Type 2 diabetes mellitus with unspecified complications E11.8
== END 2024-06-05 10:45 | disposition home or self-care (01) ==
PROVIDERS: PCP Nurse Practitioner Family; Visit Provider Registered Nurse Diabetes Educator
DX: E11.8 Type 2 diabetes mellitus with unspecified complications (principal)

== ENCOUNTER 2024-06-05 21:17 | Emergency (ER) | payer MEDICARE, MEDICAID, SELFPAY ==
--- NOTE | 2024-06-05 | ECG_ITS ---
Test Reason : LA PAIN Blood Pressure : */* mmHG Vent. Rate : 71 BPM Atrial Rate : 71 BPM P-R Int : 206 ms QRS Dur : 92 ms QT Int : 370 ms P-R-T Axes : 43 -23 16 degrees QTcB Int : 402 ms Normal sinus rhythm Normal ECG When compared with ECG of 01-Feb-2024 14:48, No significant change was found Referred By: Generic ED Physician Electronically Signed By: JUAN WISEMAN
--- NOTE | ~2024-06-05 | XR_ITS ---
CLINICAL HISTORY: CP 2 view chest x-ray Comparison: CR - CHEST 2 VIEWS - 05/19/17 09:39 EST Findings: No consolidation or effusion. Heart size is normal. No acute fracture. IMPRESSION: 1. No acute findings. This document has been electronically signed by: Tc Varner MD on 06/06/2024 03:13:33
[2024-06-05 21:23] VITALS: BP 130/80; PULSE 80; O2SAT 99
[2024-06-05 21:24] VITALS: BP 139/83; PULSE 74; RESP 18; TEMP 36.1; O2SAT 94; BMI 28.8
[2024-06-05 21:53] LABS: MANUAL DIFF FLAG NO
[2024-06-05 21:55] LABS: Basophils Percent Auto 0.2 % (0-2); Eosinophils Absolute Auto 0.2 X10*3/uL (0.0-0.4); Eosinophils Percent Auto 3.6 % (0-4); Hematocrit 45.6 % (42.0-52.0); Hemoglobin 16.2 g/dl (14.0-18.0); Imm Gran Abs Auto 0.01 X10*3/uL (0.00-0.03); Imm Gran Pct Auto 0.2 % (0.0-0.4); Lymphocytes Absolute Auto 1.8 X10*3/uL (1.2-4.9); Lymphocytes Percent Auto 33.3 % (20-40); Mean Corpuscular HGB Conc 35.5 g/dl (31.0-36.0); Mean Corpuscular Volume 78.9 fL (80.0-98.0); Mean Platelet Volume 9.7 fL (9.4-12.4); Monocytes Absolute Auto 0.5 X10*3/uL (0.1-1.2); Monocytes Percent Auto 8.7 % (2-11); Neutrophils Absolute Auto 2.9 x10*3/uL (2.0-8.3); Platelet Count 174 X10*3/uL (160-400); Red Blood Count 5.78 X10*6/uL (4.60-5.80); Red Cell Distribution Width 12.6 % (11.0-16.0); White Blood Count 5.3 X10*3/uL (4.8-10.8)
[2024-06-05 22:18] LABS: Alanine Aminotransferase 58 U/L (0-40); Albumin Level 4.2 g/dL (3.5-5.0); Alkaline Phosphatase 100 U/L (39-117); Anion Gap 13 (12-20); Aspartate Amino Transferase 37 U/L (5-37); Bilirubin Total 0.4 mg/dL (0.0-1.0); Blood Urea Nitrogen 18 mg/dL (9-16); Calcium 9.1 mg/dL (8.4-10.2); Carbon Dioxide 26 mmol/L (22-29); Chloride 106 mmol/L (96-108); Creatinine Clr Calc Pharmacy 87.7; Estimated Glomerular Filt Rate > 60; Glucose Random 202 mg/dL (60-115); Potassium 4.2 mmol/L (3.3-5.1); Sodium 141 mmol/L (135-145)
[2024-06-05 23:51] LABS: Troponin-I High Sensitivity < 2.7 ng/L (<3.5-35.0)
[2024-06-05 23:57] VITALS: BP 132/90; PULSE 72; RESP 20; TEMP 36.6; O2SAT 96
--- NOTE | 2024-06-06 01:05 | ED_ITS ---
HPI - Extremity Problem General Chief complaint: Extremity Injury, Upper Stated complaint: shooting pain in L arm, pain gone upon ems arrival Time Seen by Provider: 06/06/24 00:52 Source: patient and family Mode of arrival: EMS Limitations: no limitations History of Present Illness ED Provider: DR. Solano HPI Narrative: 63-year-old male with history of hypertension, DM, HLD presented after having a left arm pain started around 19:00 today, pain started while patient at rest localized to the whole entire left arm from shoulder to hand then radiates to the front of the chest lasted for about 15 minutes, no other associated symptoms, patient was relieved after raising his left arm above his head for few seconds, called EMS on EMS arrival patient was pain-free. Patient has no chest pain now, no arm pain, no nausea, no vomiting, no dizziness or feeling lightheadedness. no recent travel, no lower extremity swelling or tenderness, no history of PE or DVT, no history of cardiac issue, no history of drug use, no history of smoking. Related Data Home Medications ?Medication ?Instructions ?Recorded ?Confirmed fluoxetine 40 mg capsule 40 mg PO DAILY 03/28/20 03/30/24 hydroxyzine HCl 10 mg tablet 10 mg PO BEDTIME PRN Anxiety 03/28/20 03/30/24 clonazepam 1 mg tablet 1 mg PO BEDTIME PRN Anxiety 06/17/21 03/30/24 gabapentin 600 mg tablet 600 mg PO BEDTIME 01/18/23 03/30/24 insulin lispro 100 unit/mL 5 unit subcut TID 03/23/24 03/30/24 subcutaneous pen (Humalog KwikPen (U-100) Insulin) Previous Rx's ?Medication ?Instructions ?Recorded ibuprofen 600 mg tablet 600 mg PO Q6H PRN fever or pain 11/30/22 #30 tabs atorvastatin 80 mg tablet 80 mg PO DAILY #90 tabs 08/11/23 tadalafil 5 mg tablet 5 mg PO DAILY sexual activity 90 12/14/23 days #90 tabs tamsulosin 0.4 mg capsule 0.4 mg PO BEDTIME 90 days #90 caps 12/14/23 ketorolac 10 mg tablet 10 mg PO Q6H PRN pain #20 tabs 02/03/24 glucose 4 gram chewable tablet 16 g (4 x 4 gram) PO Q15M PRN 02/04/24 (Dex4 Glucose) hypoglycemia 30 days #30 tabs dapagliflozin propanediol 5 mg 5 mg PO QAM #90 tabs 03/03/24 tablet (Farxiga) omeprazole 20 mg capsule,delayed 20 mg PO DAILY 90 days #90 caps 04/05/24 release insulin glargine 100 unit/mL (3 24 unit (0.24 mL) subcut QPM 90 04/26/24 mL) subcutaneous pen (Lantus days #24 mL Solostar U-100 Insulin) losartan 25 mg tablet 25 mg PO DAILY 30 days #90 tabs 04/26/24 pen needle, diabetic 32 gauge x #400 ea 05/09/24 Allergies Allergy/AdvReac Type Severity Reaction Status Date / Time codeine [CODEINE] Allergy Intermediate TACHYCARDIA Verified 06/05/24 21:31 Review of Systems 2 Review of Systems: All other systems are reviewed and are negative Constitutional: Reports as per HPI and Reports no additional constitutional complaints Eyes: Reports as per HPI and Reports no additional eye complaints Reports system reviewed and no additional complaints, except as documented Cardiovascular: Reports as per HPI and Reports no additional cardiovascular complaints Respiratory: Reports as per HPI and Reports no additional respiratory complaints Gastrointestinal: Reports as per HPI and Reports no additional gastrointestinal complaints Genitourinary: Reports no additional female genitourinary complaints Musculoskeletal: Reports no additional musculoskeletal complaints Skin/Breast: Reports system reviewed and no additional complaints, except as docu Psychiatric: Reports no additional psychiatric complaints Endocrine: Reports no additional endocrine complaints Hematologic/Lymphatic: Reports no additional hematologic/lymphatic complaints Allergic/Immunologic: Reports no additional allergic/immunologic complaints Reports system reviewed and no additional complaints, except as documented and Reports Abnormal speech present [facility] Past Medical History Medical History Palpitations Pancreatitis Arthritis GERD (gastroesophageal reflux disease) CVA (cerebral vascular accident) Microalbuminuric diabetic nephropathy Type II diabetes with [facility] use of insulin Erectile dysfunction Vitamin D deficiency Multinodular thyroid Other and unspecified hyperlipidemia Essential hypertension Aortic valve calcification Surgical History History of esophagogastroduodenoscopy (EGD) H/O colonoscopy Family History Family History Father Stroke Brother Stroke Mother Diabetes Social History Social History Household Members: Spouse Housing: House Alcohol intake: never Patient Tobacco Use Status: Former Tobacco user Smoked in Last 30 Days: No e-Cigarette/Vaping Use: Never Used Use of substances other than those prescribed or required for medical reasons: No Advance Directives: No Advance Directives Information Provided: No service: No Current occupational status: disabled Cognitive needs: No Hearing needs: No Vision needs: Yes Physical Exam 2 Vital Signs: Vital Signs: Last Vital Signs Temp 97.8 F 06/05/24 23:57 Pulse 72 06/05/24 23:57 Resp 20 06/05/24 23:57 BP 132/90 H 06/05/24 23:57 Pulse Ox 96 06/05/24 23:57 O2 Del Method Room Air 06/05/24 23:57 BMI result Body Mass Index 28.8 Vital signs have been reviewed and appear to be correct. Blood pressure elevated. Heart rate normal. Respiratory rate normal. Temperature normal. Oxygen saturation normal. Appearance: Alert. Oriented X3. No acute distress. Head: Normal external exam. Normocephalic. Atraumatic. No Guerin signs noted. No raccoon eyes noted Eyes: PERRLA. EOMI. Conjunctiva and sclera normal. Eyelids normal. ENT: TM's Normal. Pharynx normal. Uvula midline. Moist mucous membranes. No trismus noted. No drooling noted. No muffled voice noted. Neck: Normal inspection. Neck supple. FROM. No adenopathy. Thyroid Normal. No meningeal signs. No neck mass noted. CVS: Normal heart rate and rhythm. Heart sound normal. No murmurs noted. Pulses normal throughout. Respiratory: No respiratory distress. Painless inspiration. Breath sounds normal. No wheezes/rales/rhonchi noted. Chest nontender. No accessory muscle usage noted or decreased air movement noted. Abdomen: Soft and nontender. Bowel sounds normal in all 4 quadrants. No distention noted. No organomegaly noted. No visible injury noted. Back: No CVA tenderness. Full range of motion noted. Skin: Skin warm and dry. Normal skin color. Normal skin turgor. No rashes/lesions/lacerations noted. Extremities: left upper extremity exam: No deformity, full range of motion without pain or tenderness. Neuro: Mental status: Normal attention, orientation, memory, and affect. Cranial nerves: Pupils are equal, round and reactive to light, EOMI, visual escobedo are fall, face is symmetric, facial sensations are normal. Motor examination normal muscle tone, strength to 4 extremities. DTR are +2, planter's are flexor. Sensory exam; normal coordination, no ataxia, gait stable. Cerebellar exam: [id number] and yxvt-ie-[id number] is normal. Extrapyramidal system: No tremors, no rigidity with normal facial expressions. Pronator drift not present NIH Stroke Scale Time: 01:17 Level of Consciousness: Alert Level of Consciousness Questions: Answers both questions correctly Level of Consciousness Commands: Performs both tasks correctly Best Gaze: Normal Visual: No visual loss Facial Palsy: Normal Motor Arm (Right): No drift Motor Arm (Left): No drift Motor Leg (Right): No drift Motor Leg (Left): No drift Limb Ataxia: Absent Sensory: Normal Best Language: No aphasia Dysarthia: Normal Extinction and Inattention: No abnormality Score: 0 Course Reevaluation(s) Reevaluation #1: Left arm pain with normal neurovascular exam of the left arm normal troponin x2. Hemodynamically stable with stable vital signs. Symptoms free now will reassure and discharge to follow-up with PCP. Time: 02:00 Medical Decision Making Differential Diagnosis Differential Diagnoses: The differential diagnosis associated with the presentation includes ( CVA, cervical radiculopathy, ACS, pneumonia, pneumothorax, pleural effusion, electrolyte derangement, severe anemia, myofascial left arm pain.) Admission/Observation Consideration of admission/observation: Escalation of care including admission/observation considered Lab Data [facility] Lab Attestation statement: I reviewed the patient's lab results. 06/05/24 21:42 06/05/24 21:42 Labs: Lab Results 06/05/24 Range/Units 21:42 WBC 5.3 (4.8-10.8) X10*3/uL RBC 5.78 (4.60-5.80) X10*6/uL Hgb 16.2 (14.0-18.0) g/dl Hct 45.6 (42.0-52.0) % MCV 78.9 L (80.0-98.0) fL MCH 28.0 (27.0-33.0) pg MCHC 35.5 (31.0-36.0) g/dl RDW 12.6 (11.0-16.0) % Plt Count 174 D (160-400) X10*3/uL MPV 9.7 (9.4-12.4) fL Immature Gran % (Auto) 0.2 (0.0-0.4) % Neut % (Auto) 54.0 (45-73) % Lymph % (Auto) 33.3 (20-40) % [place] % (Auto) 8.7 (2-11) % Eos % (Auto) 3.6 (0-4) % Baso % (Auto) 0.2 (0-2) % Lymph # (Auto) 1.8 (1.2-4.9) X10*3/uL [place] # (Auto) 0.5 (0.1-1.2) X10*3/uL Eos # (Auto) 0.2 (0.0-0.4) X10*3/uL Baso # (Auto) 0.0 (0.0-0.2) X10*3/uL Abs Immat Gran (auto) 0.01 (0.00-0.03) X10*3/uL Absolute Neuts (auto) 2.9 (2.0-8.3) x10*3/uL Absolute Nucleated RBC 0.000 (0.0-0.012) X10*3/uL Nucleated RBC % (auto) 0.0 (0.0-0.2) /100WBC Sodium 141 (135-145) mmol/L Potassium 4.2 (3.3-5.1) mmol/L Chloride 106 (96-108) mmol/L Carbon Dioxide 26 (22-29) mmol/L Anion Gap 13 (12-20) BUN 18 H (9-16) mg/dL Creatinine 0.93 (0.5-1.4) mg/dL Estim Creat Clear Calc 87.7 Estimated GFR > 60 Random Glucose 202 H (60-115) mg/dL Calcium 9.1 (8.4-10.2) mg/dL Total Bilirubin 0.4 (0.0-1.0) mg/dL AST 37 (5-37) U/L ALT 58 H (0-40) U/L Alkaline Phosphatase 100 (39-117) U/L Troponin I High Sens < 2.7 (<3.5-35.0) ng/L Total Protein 8.0 (6.5-8.0) g/dL Albumin 4.2 (3.5-5.0) g/dL Independent Interpretation I performed an independent interpretation of an: EKG ( NSR at 71 beats per minutes, mild WI prolongation with first-degree AV block, otherwise unremarkable intervals, no ST-T changes, no change from previous EKG.) and Plain X-Ray ( Chest: No acute intrathoracic pathology.) Radiology Impression Discussion of test interpretation with radiology: I have reviewed the radiologist's reading. Discharge Plan Discharge Clinical Impression: Arm pain, left, Atypical chest pain Patient Disposition: Home, Self-Care Instructions: Arm Pain (ED) Additional Instructions: follow-up with your primary doctor. Return to the ED if worsening of the symptoms. Prescriptions: No Action dapagliflozin propanediol [Farxiga] 5 mg tablet 5 mg PO QAM Qty: 90 0RF losartan 25 mg tablet 25 mg PO DAILY 30 Days Qty: 90 1RF (DME) pen needle, diabetic 32 gauge x 5/32 needle See Rx Instructions .Route Qty: 400 3RF Rx Instructions: for qid ibuprofen 600 mg tablet 600 mg PO Q6H PRN (Reason: fever or pain) Qty: 30 0RF ketorolac 10 mg tablet 10 mg PO Q6H PRN (Reason: pain) Qty: 20 0RF Rx Instructions: maximum total duration of 5 days from all oral, intranasal, or parenteral formulations. Patient received an intramuscular dose of Toradol here in the emergency department gabapentin 600 mg tablet 600 mg PO BEDTIME atorvastatin 80 mg tablet 80 mg PO DAILY Qty: 90 4RF fluoxetine 40 mg capsule 40 mg PO DAILY hydroxyzine HCl 10 mg tablet 10 mg PO BEDTIME PRN (Reason: Anxiety) clonazepam 1 mg tablet 1 mg PO BEDTIME PRN (Reason: Anxiety) tadalafil 5 mg tablet 5 mg PO DAILY 90 Days Qty: 90 1RF Rx Instructions: Take daily for bladder and erections tamsulosin 0.4 mg capsule 0.4 mg PO BEDTIME 90 Days Qty: 90 3RF glucose [Dex4 Glucose] 4 gram tablet,chewable 16 g PO Q15M MDD 16 tablets PRN (Reason: hypoglycemia) 30 Days Qty: 30 3RF Rx Instructions: every 15 minutes until symptoms of low blood sugar are controlled insulin glargine [Lantus Solostar U-100 Insulin] 100 unit/mL (3 mL) insulin pen 24 unit subcut QPM 90 Days Qty: 24 3RF omeprazole 20 mg capsule,delayed release(DR/EC) 20 mg PO DAILY 90 Days Qty: 90 2RF insulin lispro [Humalog KwikPen Insulin] 100 unit/mL insulin pen 5 unit subcut TID Rx Instructions: before meals Print Language: Chilean
[2024-06-06 01:26] VITALS: BP 126/85; PULSE 65; RESP 17; TEMP 36.2; O2SAT 96
[2024-06-06 02:02] LABS: Troponin-I High Sensitivity < 2.7 ng/L (<3.5-35.0)
[2024-06-06 03:34] VITALS: BP 126/85; PULSE 65; RESP 17; TEMP 36.2; O2SAT 96
== END 2024-06-06 03:35 | disposition home or self-care (01) ==
PROVIDERS: Emergency Provider Emergency Medicine
DX: R07.89 Other chest pain (principal); M79.602 Pain in left arm; R29.700 NIHSS score 0; I10 Essential (primary) hypertension; E11.9 Type 2 diabetes mellitus without complications; Z86.73 Personal history of transient ischemic attack (TIA), and cerebral infarction without residual deficits; E78.5 Hyperlipidemia, unspecified; Z79.02 Long term (current) use of antithrombotics/antiplatelets; Z79.899 Other long term (current) drug therapy; Z79.4 Long term (current) use of insulin; Z87.891 Personal history of nicotine dependence
CPT/HCPCS: 36415; 71046; 80053; 84484; 85025; 93005; 99211; 99283; 99284

== ENCOUNTER → 2024-06-05 21:44 | Outpatient (BNV) | payer MEDICARE, MEDICAID, SELFPAY | PROVIDERS: Emergency Provider Emergency Medicine; Visit Provider Internal Medicine | DX: I10 Essential (primary) hypertension (principal); M79.602 Pain in left arm | CPT/HCPCS: 93010 ==

== ENCOUNTER → 2024-06-06 01:18 | Outpatient (BNV) | payer MEDICARE, MEDICAID, SELFPAY | PROVIDERS: Emergency Provider Emergency Medicine; Visit Provider Radiology Diagnostic Radiology | DX: R07.9 Chest pain, unspecified (principal) | CPT/HCPCS: 71046 ==

== ENCOUNTER 2024-06-06 12:56 | Outpatient (AMB) | payer MEDICARE, MEDICAID, SELFPAY ==
--- NOTE | 2024-06-06 13:29 | A.OFFVIS_ITS ---
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 No complaints. 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 This was done originally on an MRI on 05/25/2024 for follow-up of a pancreatic pseudocyst. At the current time he reports no significant symptoms. He is a longstanding diabetic with the last hemoglobin A1c of 7.7. He now presents for follow-up in evaluation regarding this splenic vein thrombosis. Patient refused interpretation services [facility] Medical History Palpitations Pancreatitis Arthritis GERD (gastroesophageal reflux disease) CVA (cerebral vascular accident) Microalbuminuric diabetic nephropathy Type II diabetes with [facility] use of insulin Erectile dysfunction Vitamin D deficiency Multinodular thyroid Other and unspecified hyperlipidemia Essential hypertension Aortic valve calcification Surgical History History of esophagogastroduodenoscopy (EGD) H/O colonoscopy Family History Father Stroke Brother Stroke Mother Diabetes Social History Household Members: Spouse Housing: House Alcohol intake: never Patient Tobacco Use Status: Former Tobacco user e-Cigarette/Vaping Use: Never Used service: No Current occupational status: disabled Cognitive needs: No Hearing needs: No Vision needs: Yes Review of Systems Const All systems reviewed & are unremarkable except as noted in HPI and below Reports no additional complaints ENT Reports Normal hearing present Card Denies chest pain, Denies chest pain at rest, Denies chest pain with activity an d Denies pedal edema Resp Denies cough GI Denies abdominal pain Musc Denies abnormal gait, Denies muscle cramps and Denies radiating pain into limb Skin/Breast Denies skin ulcer and Denies wounds Neuro Reports Normal hearing present and Denies abnormal gait Psych Reports no additional complaints Physical Exam Const General: cooperative, healthy appearing and comfortable Orientation/consciousness: oriented to person, oriented to place and oriented to time HEENT Head: Yes normal to inspection Neck Neck: Yes normal visual inspection Carotids: no bruits Chest Chest palpation & inspection: normal inspection of the chest Resp Effort & Inspection: normal respiratory effort and able to speak in complete sentences Auscultation: clear to auscultation bilaterally, no crackles, no rales, no rhonchi and no wheezes Cardio Rate: regular rate Rhythm: regular rhythm Heart sounds: S1 normal heart sound present and S2 normal heart sound present Bruits: no carotid bruits Peripheral pulses: Peripheral pulses 2+ throughout GI Other: Abdomen soft nontender nondistended. No rebound no guarding Inspection: Yes normal to inspection Skin Wounds: no wounds Hair: normal Neuro General: oriented to person, oriented to place and oriented to time Cranial nerves: Yes CN's II-XII intact bilaterally and Yes Normal hearing present Cognition (Neuro): normal cognition Motor exam (neuro): 5/5 motor strength present throughout Extrem Other: venous exam: No significant superficial varicosities or spider telangiectasias, minimal edema General: No clubbing, No cyanosis and No edema Psych Appearance: grossly normal Mental Status: mental status grossly normal Speech and movement: Normal speech and movement present Assessment & Plan Assessment & Plan (1) Chronic thrombosis of splenic vein: Code(s): I82.891 - Chronic embolism and thrombosis of other specified veins Category: Medical Plan: In short patient has chronic splenic vein thrombosis. At the current time appears to be asymptomatic. I do believe this is more related to his underlying pancreatic condition. Would need further evaluation regarding this pancreatic pseudocyst. This may be best served by evaluation by GI or potential referral to [facility] for Dr. Katina Huerta. At the current time he is stable from a vascular perspective. No intervention is indicated. He will follow up with us on an as-needed basis. Thank you for allowing us to assist in his care. The patient had an opportunity to ask questions regarding the treatment plan. All questions were answered. Imaging studies, laboratory studies and physical exam results were discussed and reviewed in detail. No major barriers to understanding were identified. The patient expressed understanding and agreement with the above treatment plan. The patient is aware they should contact our office by phone for worsening of the current condition or the appearance of new symptoms. Thank you for allowing me to participate in the vascular care of this patient. If you have any questions or concerns regarding the treatment for the above condition please do not hesitate to contact me. The office telephone contact is [phone]. This note is constructed using voice recognition software. While every effort has been made to ensure accuracy, transmission repairer errors may have been included. Thank you for allowing me to participate in the care of your patient. Yours sincerely, Jb Urrutia MD, FACS, R.P.V.I. Coding Level of Care Code New Pt Level 4 (19298) Diagnoses Chronic thrombosis of splenic vein I82.891
--- OUTSIDE RECORDS SUMMARY | 2024-06-06 15:31 | XMS_ITS | Encounter Summary ---
Author Organization [facility] Address [address] [facility] 7t [place] [address] Care Team Providers Care Telegraphic Typewriter Operator Chief Name Role Phone Payal Walker Primary Care Provider [phone] Neptali Palomo DMD Unavailable [phone] Encounter Details Date Type Department Care Team (Latest Contact Info) Description 02/12/2020 Abstract [facility] CONVERSIONS Dental, Provider, DDS Social History Tobacco [...] Upcoming Encounters Date Type Department Care Team ([facility] st Contact Info) Description 06/20/2024 10:30 AM EDT Office Visit [facility] ADULT DENTAL [address] [place], [place] [phone] Neptali Palomo DMD [address] [place] [address] documented as of this encounter Visit Diagnoses Not on filedocumented in this encounter Care Teams Telegraphic Typewriter Operator Chief Relationship Specialty Start Date End Date Payal Walker ANP [address] [place] [address] PCP - General Family Medicine 11/20/21 08/04/23 Neptali Palomo DMD [address] [place], [place] Dentist 05/18/24 documented as of this encounter
--- OUTSIDE RECORDS SUMMARY | 2024-06-06 15:31 | XMS_ITS | Encounter Summary ---
Author Organization [employer] Address [address] [facility] [address] 7t [place] [address] Care Team Providers Care Glass Sagger Name Role Phone Neptali Palomo DMD Unavailable [phone] Reason for Visit * Reason Comments Med Refill Encounter Details Date Type Department Care Team (Late st Contact Info) Description 12/09/2023 Refill [facility] MEDICINE [address] [place], [place] [phone] Payal Walker, ANP [address] [place], [place] [phone] Type 2 diabetes mellitus with hyperlipidemia (CMS/HCC) ([facility]); Primary hypertension Social History Tobacco Use Types [...] Description 06/20/2024 10:30 AM EDT Office Visit [facility] ADULT D[facility]AL [address] [place] [address] Neptali Palomo DMD 505 [place] [address] documented as of this encounter Visit Diagnoses Diagnosis Type 2 diabetes mellitus with hyperlipidemia (CMS/HCC) (CMS/HCC) Primary hypertension Unspecified essential hypertension documented in this encounter Additional Health Concerns Assessment Noted Time PHQ-9 Depression Total Score: 0 08/05/19 23 2:13 PM EDT documented as of this encounter Care Teams Glass Sagger Relationship Specialty Start Date End Date Neptali Palomo DMD 505 [place] [address] Dentist 05/18/24 documented as of this encounter
--- OUTSIDE RECORDS SUMMARY | 2024-06-06 15:31 | XMS_ITS | Encounter Summary ---
Author Organization [employer] Address [address] [facility] 7t [place] [address] Care Team Providers Care Budget Coordinator Name Role Phone Neptali Palomo DMD Unavailable [phone] Reason for Visit * Reason Comments Med Refill Encounter Details Date Type Department Care Team (Late st Contact Info) Description 01/28/2024 Refill [facility] MEDICINE 230 [place], [place] [phone] Payal Walker, ANP 230 [place], [place] [phone] Type 2 diabetes mellitus with hyperlipidemia ([facility]/HCC) ([facility]) Social History Tobacco Use Types [...] [facility] ADULT DENTAL 505 [place] [address] Neptali Palomo DMD 505 [place] [address] documented as of this encounter Visit Diagnoses Diagnosis Type 2 diabetes mellitus with hyperlipidemia (CMS/HCC) (CMS/HCC) documented in this encounter Additional Health Concerns Assessment Noted Time PHQ-9 Depression Total Score: 0 08/05/19 23 2:13 PM EDT documented as of this encounter Care Teams Budget Coordinator Relationship Specialty Start Date End Date Neptali Palomo DMD 505 [place] [address] Dentist 05/18/24 documented as of this encounter
--- OUTSIDE RECORDS SUMMARY | 2024-06-06 15:31 | XMS_ITS | Clinical Summary ---
Author Organization [employer] Address [address] [facility] 7t [place] [address] Care Team Providers Care Dry Roaster Name Role Phone Neptali Palomo DMD Unavailable [phone] Allergies Active Allergy Reactions Criticality Noted [...] ype 2 diabetes mellitus with hyperlipidemia (CMS/HCC) (CMS/[facility]) Use 1 by To Skin route once daily 100 each 3 05/14/19 23 Active Blood Glucose Monitoring Suppl (FreeStyle Lite) w/Device kitIndications:Typ e 2 diabetes mellitus without complication, unspecified whether supervisor long goods insulin use (CMS/[facility]) 1 each before breakfast, before lunch, and before evening meal. 1 kit 07/11/19 23 Active Continuous Blood Gluc International Trade Specialist (FreeStyle Agatha 2 [place]) deviceIndications: Type 2 diabetes mellitus with hyperlipidemia (CMS/HCC) (CMS/HCC) 1 each 5 (five) times a day. 1 each 07/28/19 23 Active Continuous Blood Gluc Sensor (FreeStyle Agatha 2 Sensor) miscIndications:Ty pe 2 diabetes mellitus with hyperlipidemia (CMS/HCC) ([facility]) 1 each every 14 (fourteen) [...] fasting and chem -referred to neurologist at [facility] x stroke f up and to f CT ,MRI findings --unsure if actual aneurysm in CTA? 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 ADULT DENTAL [address] [place] [address] Neptali Palomo DMD Defective dental catholic (Primary Dx) 04/14/2024 Refill [facility] MEDICINE [address] [place] [address] Payal Walker ANP Type 2 diabetes mellitus with hyperlipidemia (CMS/HCC) ([facility]/HCC) 04/13/2024 9:00 AM EST Office [facility] ADULT DENTAL [address] [place] [address] Neptali Palomo DMD Full coverage crown needed for root canal-treated tooth (Primary Dx); Full coverage crown needed for tooth at risk for fracture 03/23/2024 2:00 PM EST Office [facility] ADULT DENTAL 505 [place] [address] Neptali Palomo DMD Full coverage crown needed [...] is your housing situation today? I have inrgid stack 01/15/[address] you [...] Description 06/20/2024 10:30 AM EDT Office Visit [facility] ADULT D[facility]AL [address] [place] [address] Neptali Palomo DMD [address] [place] [address] Health Maintenance Due Date Last Done Comments [...] Routine 05/18/2024 10:00 AM EST Defective dental catholic 11 F(V) RESIN-BASED COMPOSITE - 1 SURF, ANTERIOR Routine 05/18/2024 10:00 AM EST Defective dental catholic 10 MFF(V)L RESIN-BASED COMPOSITE - 3 SURF, ANTERIOR Routine 05/18/2024 10:00 AM EST Defective dental catholic CASE PRESENTATION, DETAILED AND EXTENSIVE TREATMENT PLANNING [...] 9:03 AM EDT) Creatinine, Urine 89.78 mg/dL [facility] Microalbumin Urine 59.0 mg/L [facility] Microalbum Creatinine Ratio Ur 65.7 ug/mg cr [facility] Comment:Albumin/Creatinine R atio Reference Ranges: Normal: < 30 ug/mg creatinine Microalbuminuria: 30 - 300 ug/mg creatinineClinical Albuminuria: > 300 ug/mg creatinine 08/19/2022 9:03 AM EDT 08/19/2022 11:06 AM EDT [facility] External Provider LAB URI NE ORDERABLES Final Result [facility] [address] [place] [phone] * Hemoglobin A1c (08/19/2022 9:03 AM EDT) Hemoglobin A1c 7.3 % [facility] Comment:Hemoglobin A1C Refer ence Range Adults: 4.8 - 6.0 % Non diabetic: < 6.0 % Goal: < 7.0 %Additional Action Suggested: > 8.0 %Note: Hemoglobin A1c results are invalid for patients with abnormal amounts of HbF. Blood transfusions may impact the HbA1c concentration in the patient sample. Estimated Average Glucose 163 mg/dL [facility] Comment:eAG = Estimated ave rage glucose which is %A1C expressed asaverage glucose, using the formula of the V9K-IvxokqqMnedorx Glucose study (ADAG), Diabetes Care, Vol.31,#8,Oct. 2007 08/19/2022 9:03 AM EDT 08/19/2022 11:12 AM EDT [facility] External Provider LAB BLO OD ORDERABLES Final Result [facility] [address] [place] [address] [phone] * Lipid Panel, Standard (08/19/2022 9:03 AM EDT) Triglycerides 91 mg/dL [facility] Comment:Desirable Triglyceri de: less than 150 mg/dLBorderline High Triglyceride 150-199 mg/dLHigh Triglyceride: 200-499 mg/dLVery High Triglyceride: greater than or equal to 5OO mg/dL Cholesterol 186 mg/dL [facility] Comment:Desirable Cholestero l: less than 200 mg/dLBorderline High Cholesterol: 200-239 mg/dLHigh Cholesterol: greater than 239 mg/dL LDL Cholesterol Calculated 129 mg/dl [facility] Comment:Desirable LDL: less than 100 mg/dLNear Optimal/Above Optimal LDL: 110- 129 mg/dLBorderline High LDL: 130-159 mg/dLHigh LDL: 160-189 mg/dLVery High LDL: greater than or equal to 190 mg/dL HDL Cholesterol 39 mg/dL [facility] Comment:Desirable HDL: great er than 40 mg/dL Note: This HDL assay may give artificially low results in patients with liver disease. 08/19/2022 9:03 AM EDT 08/19/2022 11:12 AM EDT [facility] External Provider LAB BLO OD ORDERABLES Final Result Performing Organization Address City/[facility]/ZIP Co de Phone Number [facility] [address] [place] [address] [phone] * HEPATITIS C AB W/REFL TO HCV RNA, QN, PCR (07/16/2020 9:56 AM EDT) Pathologist [facility] HEPATITIS C ANTIBODY NON-REACT DEN NON-REACT DEN [facility] INDEX 0.02 <1.00 [facility] Comment: ?? HCV antibody was non-reactive. There is no laboratory ?? evidence of HCV infection. ?? In most cases, no further action is required. However, if recent HCV exposure is suspected, a test for HCV RNA (test code 31834) is suggested. ?? For additional information please refer to http://education.Xpreso/faq/PCL50v7 (This link is being provided for informational/ educational purposes only.) ?? 07/16/2020 9:56 AM EDT Davida Webb HEDDLE MACHINE OPERATOR HISTORICAL/NON ORDERABLE LABS Final Result Performing Organization Address [facility] Co de Phone Number [facility] [address] [place] [address], * Colonoscopy (05/01/2016) Pathologist [facility] Colonoscopy Normal Normal Narrative LienMary Kate horn - 05/01/2016 Repeat in 10 years Historical Provider MD HEALTH MAINTENANCE Final Result from Last 3 Months or Most Recently [place] [address] [facility] [place] [address] DENTAL-[facility] MEDICAID STAND ADULT LU[place] LUIS Gomez Care Teams Dry Roaster Relationship Specialty Start Date End Date Neptali Palomo DMD [address] [place] [address] Dentist 05/18/24
--- OUTSIDE RECORDS SUMMARY | 2024-06-06 15:31 | XMS_ITS | Encounter Summary ---
Author Organization [employer] Address [address] [facility] [facility] [address] 7t [place] [address] Care Team Providers Care Press Cleaner Name Role Phone Walker Payal RUANO Primary Care Provider [phone] Neptali Palomo DMD Unavailable [phone] Encounter Details Date Type Department Care Team (Late st Contact Info) Description 02/16/2023 Abstract [facility] MEDICINE [address] [place], [place] [phone] Mary Kate Emmanuel Social History Tobacco Use [...] Description 06/20/2024 10:30 AM EDT Office Visit [facility] ADULT DENTAL 505 [place] [address] Neptali Palomo DMD 505 [place] [address] documented as of this encounter Procedures Procedure [...] documented as of this encounter Care Teams Press Cleaner Relationship Specialty Start Date End Date Payal Walker ANP [address] [place] [address] PCP - General Family Medicine 11/20/21 08/04/23 Neptali Palomo DMD [address] [place] [address] Dentist 05/18/24 documented as of this encounter
--- OUTSIDE RECORDS SUMMARY | 2024-06-06 15:31 | XMS_ITS | Encounter Summary ---
Author Organization [employer] Address [address] [facility] [address] 7t [place] [address] Care Team Providers Care Spiritual Advisor Name Role Phone Neptali Palomo DMD Unavailable [phone] Reason for Visit * Reason Comments Med Refill Encounter Details Date Type Department Care Team (Late st Contact Info) Description 11/04/2023 Refill [facility] MEDICINE 230 [place], [place] [phone] Payal Walker, ANP [address] [place], [place] [phone] Type 2 diabetes mellitus with hyperlipidemia ([facility]/HCC) ([facility]) Social History Tobacco Use Types Packs/Day [...] 06/20/2024 10:30 AM EDT Office Visit [facility] ADULT DENTAL 505 [place] [address] Neptali Palomo DMD 505 [place] [address] documented as of this encounter Visit Diagnoses Diagnosis Type 2 diabetes mellitus with hyperlipidemia (CMS/HCC) (CMS/HCC) documented in this encounter Additional Health Concerns Assessment Noted Time PHQ-9 Depression Total Score: 0 08/05/19 23 2:13 PM EDT documented as of this encounter Care Teams Spiritual Advisor Relationship Specialty Start Date End Date Neptali Palomo DMD [address] [place] [address] Dentist 05/18/24 documented as of this encounter
--- OUTSIDE RECORDS SUMMARY | 2024-06-06 15:31 | XMS_ITS | Encounter Summary ---
Author Organization [employer] Address [address] [facility] [address] 7t [place] [address] Care Team Providers Care Trading Assistant Name Role Phone Neptali Palomo DMD Unavailable [phone] Reason for Visit * Reason Comments Med Refill Encounter Details Date Type Department Care Team (Late st Contact Info) Description 01/28/2024 Refill [facility] MEDICINE 230 [place], [place] [phone] Payal Walker, ANP 230 [place], [place] [phone] Social History Tobacco Use Types Packs/Day Years [...] 06/20/2024 10:30 AM EDT Office Visit [facility] ADULT DENTAL [address] [place] [address] Neptali Palomo DMD 505 [place] [address] documented as of this encounter Visit Diagnoses Not on filedocumented in this encounter Additional Health Concerns Assessment Noted Time PHQ-9 Depression Total Score: 0 08/05/19 23 2:13 PM EDT documented as of this encounter Care Teams Trading Assistant Relationship Specialty Start Date End Date Neptali Palomo DMD 505 [place] [address] Dentist 05/18/24 documented as of this encounter
--- OUTSIDE RECORDS SUMMARY | 2024-06-06 15:31 | XMS_ITS | Encounter Summary ---
Author Organization [employer] Address [address] [facility] [address] 7t [place] [address] Care Team Providers Care Scanner Supervisor Name Role Phone Walker Payal RUANO Primary Care Provider [phone] Neptali Palomo DMD Unavailable [phone] Reason for Visit * Reason Comments Med Refill Encounter Details Date Type Department Care Team ([facility] st Contact Info) Description 06/25/2023 Refill [facility] MEDICINE 230 [place], [place] [phone] Siena Greenwood MD [address] [place], [place] [phone] GERD without esophagitis Social History Tobacco Use [...] Description 06/20/2024 10:30 AM EDT Office Visit [facility] ADULT DENTAL 505 [place] [address] Neptali Palomo DMD [address] [place] [address] documented as of this encounter Visit Diagnoses Diagnosis GERD without esophagitis Esophageal reflux documented in this encounter Additional Health Concerns Assessment Noted Time PHQ-9 Depression Total Score: 0 08/05/19 23 2:13 PM EDT documented as of this encounter Care Teams Scanner Supervisor Relationship Specialty Start Date End Date Payal Walker ANP [address] [place] [address] PCP - General Family Medicine 11/20/21 08/04/23 Neptali Palomo DMD [address] [place] [address] Dentist 05/18/24 documented as of this encounter
--- OUTSIDE RECORDS SUMMARY | 2024-06-06 15:31 | XMS_ITS | Encounter Summary ---
Author Organization [facility] [facility] Address [address] [facility] 7t [place] [address] Care Team Providers Care Executive Office Manager Name Role Phone Payal Walker Primary Care Provider [phone] Neptali Palomo DMD Unavailable [phone] Encounter Details Date Type Department Care Team (Latest Contact Info) Description 10/03/2018 Abstract [facility] CONVERSIONS Dental, Provider, DDS Social [...] Upcoming Encounters Date Type Department Care Team ([facility] st Contact Info) Description 06/20/2024 10:30 AM EDT Office Visit [facility] ADULT DENTAL [address] [place], [place] [phone] Neptali Palomo DMD 505 [place] [address] documented as of this encounter Visit Diagnoses Not on filedocumented in this encounter Care Teams Executive Office Manager Relationship Specialty Start Date End Date Payal Walker ANP 230 [place] [address] PCP - General Family Medicine 11/20/21 08/04/23 Neptali Palomo DMD [address] [place], [place] Dentist 05/18/24 documented as of this encounter
--- OUTSIDE RECORDS SUMMARY | 2024-06-06 15:31 | XMS_ITS | Encounter Summary ---
Author Organization [employer] Address [address] 7[address] [place] [address] Care Team Providers Care Toxicology Teacher Name Role Phone Neptali Palomo DMD Unavailable [phone] Reason for Visit * Reason Comments Med Refill Encounter Details Date Type Department Care Team (Late st Contact Info) Description 04/14/2024 Refill [facility] MEDICINE 230 [place], [place] [phone] Payal Walker, ANP 230 [place], [place] [phone] Type 2 diabetes mellitus with hyperlipidemia ([facility]/HCC) ([facility]) Social History Tobacco Use Types Packs/Day [...] Visit [facility] ADULT DENTAL [address] [place] [address] Neptali Palomo DMD 505 [place] [address] documented as of this encounter Visit Diagnoses Diagnosis Type 2 diabetes mellitus with hyperlipidemia (CMS/HCC) (CMS/HCC) documented in this encounter Additional Health Concerns Assessment Noted Time PHQ-9 Depression Total Score: 0 08/05/19 23 2:13 PM EDT documented as of this encounter Care Teams Toxicology Teacher Relationship Specialty Start Date End Date Neptali Palomo DMD 505 [place] [address] Dentist 05/18/24 documented as of this encounter
--- OUTSIDE RECORDS SUMMARY | 2024-06-06 15:31 | XMS_ITS | Encounter Summary ---
Author Organization [employer] Address [address] [facility] 7t [place] [address] Care Team Providers Care Research Investigator Name Role Phone Aaron Payal RUANO Primary Care Provider [phone] Neptali Palomo DMD Unavailable [phone] Reason for Visit * Reason Comments Med Refill Encounter Details Date Type Department Care Team (Late st Contact Info) Description 10/20/2022 Refill [facility] MEDICINE 230 [place], [place] [phone] [facility] 230 [place] [address] Social History Tobacco Use Types Packs/Day Years [...] [facility] 505 [place], [place] [phone] Neptali Palomo, JESSICA [address] [place], [place] [phone] documented as of this encounter Visit Diagnoses Not on filedocumented in this encounter Additional Health Concerns Assessment Noted Time PHQ-9 Depression Total Score: 0 08/05/19 23 2:13 PM EDT documented as of this encounter Care Teams Research Investigator Relationship Specialty Start Date End Date Payal Walker ANP [address] [place] [address] PCP - General Family Medicine 11/20/21 08/04/23 Neptali Palomo DMD [address] [place] [address] Dentist 05/18/24 documented as of this encounter
--- OUTSIDE RECORDS SUMMARY | 2024-06-06 15:32 | XMS_ITS | Encounter Summary ---
Author Organization [employer] Address [address] [facility] 7t [place] [address] Care Team Providers Care Concrete Vibrator Operator Name Role Phone DeweyNeptali jurado DMD Unavailable [phone] Reason for Visit * Reason Comments Filling PATIENT PRESENTS TOSharmaine AY FOR FILLING #10,11 ALMA PERERA Encounter Details Date Type Department Care Team ([facility] st Contact Info) Description 05/18/2024 10:00 AM EST Office Visit [facility] ADULT DENTAL [address] [place] [address] Neptali Palomo, DMD [address] [place] [address] Defective dental adventist (Primary Dx) Social History Tobacco Use Types [...] Timeout Time: 1020 (ERMA # 10,12,13) Location: [facility] Tooth: #10 and #11 Procedure: Religious Verified the above with patient, dental assistant medical assistant, and provider. Confirmed via patient's chart, intraorally and by radiographs. Graphite Mill Operator: Yes. Language: Czech. Graphite Mill Operator's Name: Alma PERERA Chief Complaint Patient presents [...] Service provider: Neptali Palomo DMD Billing provider: Npetali Palomo DMD [id number] - CASE PRESENTATION, DETAILED [...] cheek guard Prep: All caries removed, Existing adventist removed, and Preparation finalized Matrix: Mylar Strip and wedge for #10 interproximal and size 000 cord soaked in hemodent placed in sulcus of #10,11. Verified removal prior to discharge Etch: 37% Phosphoric Acid Etch Desensitizer: Gluma Liner/Base: None Nieto: I-Nieto Religious Material: Voco Grandioso Packable Shade: A3 Polished. Occlusion & contacts verified. Patient satisfied with comfort and esthetics. Patient tolerated procedure well. Post-operative instructions were given. Patient departed alert, oriented, and in stable condition. NV: #12,13 restos Flavorer: Alma Frias Dentist: Neptali Palomo DMD documented in this encounter Plan of Treatment Upcoming Encounters Date Type Department Care Team (Late st Contact Info) Description 06/20/2024 10:30 AM EDT Office Visit [facility] ADULT DENTAL 505 [place] [address] Neptali Palomo DMD [address] [place] [address] documented as of this encounter Procedures Procedure Name Priority Date/Time Associated Diagnosis Comments 10 MFF(V)L RESIN-BASED COMPOSITE - 3 SURF, ANTERIOR Routine 05/18/2024 10:00 AM EST Defective dental adventist 11 F(V) RESIN-BASED COMPOSITE - 1 SURF, ANTERIOR Routine 05/18/2024 10:00 AM EST Defective dental adventist CASE PRESENTATION, DETAILED AND EXTENSIVE TREATMENT PLANNING Routine 05/18/2024 10:00 AM EST Defective dental adventist documented in this encounter Visit Diagnoses Diagnosis Defective dental adventist- Primary Unspecified unsatisfactory adventist of tooth documented in this encounter Additional Health Concerns Assessment Noted Time PHQ-9 Depression Total Score: 0 08/05/19 23 2:13 PM EDT documented as of this encounter Care Teams Concrete Vibrator Operator Relationship Specialty Start Date End Date Neptali Palomo DMD [address] [place] [address] Dentist 05/18/24 documented as of this encounter
--- OUTSIDE RECORDS SUMMARY | 2024-06-06 15:32 | XMS_ITS | Encounter Summary ---
Author Organization [employer] Address [address] 7t [place] [address] Care Team Providers Care Tanner Rotary Drum Continuous Process Name Role Phone Neptali Palomo DMD Unavailable [phone] Reason for Visit * Reason Comments Med Refill Encounter Details Date Type Department Care Team (Late st Contact Info) Description 11/01/[address] [facility] MEDICINE 230 [place], [place] [phone] Payal Walker, ANP 230 [place], [place] [phone] Primary hypertension Social History Tobacco Use Types [...] Description 06/20/2024 10:30 AM EDT Office Visit [facility]ULT D[facility]AL [address] [place] [address] Neptali Palomo DMD [address] [place] [address] documented as of this encounter Visit Diagnoses Diagnosis Primary hypertension Unspecified essential hypertension documented in this encounter Additional Health Concerns Assessment Noted Time PHQ-9 Depression Total Score: 0 08/05/19 23 2:13 PM EDT documented as of this encounter Care Teams Tanner Rotary Drum Continuous Process Relationship Specialty Start Date End Date Neptali Palomo DMD 505 [place] [address] Dentist 05/18/24 documented as of this encounter
--- OUTSIDE RECORDS SUMMARY | 2024-06-06 15:32 | XMS_ITS | Encounter Summary ---
Author Organization [employer] Address [address] 7t [place] [address] Care Team Providers Care Poultry Sexer Name Role Phone Neptali Palomo DMD Unavailable [phone] Reason for Visit * Reason Comments Med Refill Encounter Details Date Type Department Care Team (Late st Contact Info) Description 10/22/2023 Refill [facility] MEDICINE 230 [place], [place] [phone] Payal Walker, ANP 230 [place], [place] [phone] Type 2 diabetes mellitus with hyperlipidemia ([facility]/HCC) ([facility]) Social History Tobacco Use Types Packs/Day Years [...] Office Visit [facility] ADULT D[facility]AL 505 [place] [address] Neptali Palomo DMD [address] [place] [address] documented as of this encounter Visit Diagnoses Diagnosis Type 2 diabetes mellitus with hyperlipidemia (CMS/HCC) (CMS/HCC) documented in this encounter Additional Health Concerns Assessment Noted Time PHQ-9 Depression Total Score: 0 08/05/19 23 2:13 PM EDT documented as of this encounter Care Teams Poultry Sexer Relationship Specialty Start Date End Date Neptali Palomo DMD 505 [place] [address] Dentist 05/18/24 documented as of this encounter
== END 2024-06-06 13:54 | disposition home or self-care (01) ==
LOC: HO.HVS 12:57
PROVIDERS: PCP Nurse Practitioner Family; Visit Provider Surgery Vascular Surgery
DX: I82.891 Chronic embolism and thrombosis of other specified veins (principal)
CPT/HCPCS: 99204

== ENCOUNTER → 2024-06-06 12:56 | Outpatient (BNVA) | payer MEDICARE, MEDICAID, SELFPAY | PROVIDERS: PCP Nurse Practitioner Family; Visit Provider Surgery Vascular Surgery | DX: I82.891 Chronic embolism and thrombosis of other specified veins (principal) | CPT/HCPCS: 99202 ==

== ENCOUNTER 2024-06-27 08:57 | Outpatient (REF) | payer MEDICARE, MEDICAID, SELFPAY ==
--- OUTSIDE RECORDS SUMMARY | 2024-06-27 09:40 | XMS_ITS | Encounter Summary ---
Author Organization [employer] Address [address] 7t [place] [address] Care Team Providers Care Site Supervisor Name Role Phone Neptali Palomo DMD Unavailable [phone] Reason for Visit * Reason Comments Med Refill Encounter Details Date Type Department Care Team (Late st Contact Info) Description 12/09/2023 Refill [facility] MEDICINE 230 [place], [place] [phone] Payal Walker, ANP 230 [place], [place] [phone] Type 2 diabetes mellitus with hyperlipidemia (CMS/HCC) ([facility]); Primary hypertension Social History Tobacco Use [...] as of this encounter Plan of Treatment Not on file documented as of this encounter Visit Diagnoses Diagnosis Type 2 diabetes mellitus with hyperlipidemia (CMS/HCC) (CMS/[facility]) Primary hypertension Unspecified essential hypertension documented in this encounter Additional Health Concerns Assessment Noted Time PHQ-9 Depression Total Score: 0 08/05/19 23 2:13 PM EDT documented as of this encounter Care Teams Site Supervisor Relationship Specialty Start Date End Date Neptali Palomo DMD [address] [place] [address] Dentist 05/18/24 documented as of this encounter
--- OUTSIDE RECORDS SUMMARY | 2024-06-27 09:40 | XMS_ITS | Clinical Summary ---
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 1 kit 07/11/19 23 Active Continuous Blood Gluc Auto Wash Buffer (FreeStyle Agatha 2 [place]) deviceIndications: Type 2 diabetes mellitus with hyperlipidemia (CMS/HCC) (CMS/HCC) 1 each 5 (five) times a day. 1 each 07/28/19 23 Active Continuous Blood Gluc Sensor (FreeStyle Agatha 2 Sensor) miscIndications:Ty pe 2 diabetes mellitus with hyperlipidemia (CMS/HCC) ([facility]) 1 each every 14 (fourteen) days. [...] fasting and chem -referred to neurologist at [place] x stroke f up and to f CT ,MRI findings --unsure if actual aneurysm in CTA? 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 Mild nodularity increases suspicion for cirrhosis Encounters Date Type Department Care Team Description 05/18/2024 10:00 AM EST Office Visit [facility]ULT [facility] [address] [place] [address] Neptali Palomo DMD Defective dental shinto (Primary Dx) 04/14/2024 Refill [facility] 230 [place] [address] Payal Walker ANP Type 2 diabetes mellitus with hyperlipidemia (CMS/HCC) ([facility]/HCC) 04/13/2024 9:00 AM EST Office Visit [facility] [address] [place] [address] Neptali Palomo, JESSICA Full coverage crown needed for root canal-treated tooth (Primary Dx); Full coverage crown needed for tooth at risk for fracture from Last 3 Months Immunizations Name Administration [...] 08/17/2022 12:59 PM EDT Plan of Treatment Health Maintenance Due Date Last Done Comments [...] Routine 05/18/2024 10:00 AM EST Defective dental shinto 11 F(V) RESIN-BASED COMPOSITE - 1 SURF, ANTERIOR Routine 05/18/2024 10:00 AM EST Defective dental shinto 10 MFF(V)L RESIN-BASED COMPOSITE - 3 SURF, ANTERIOR Routine 05/18/2024 10:00 AM EST Defective dental shinto CASE PRESENTATION, DETAILED AND EXTENSIVE TREATMENT PLANNING [...] 9:03 AM EDT) Creatinine, Urine 89.78 mg/dL [facility] Microalbumin Urine 59.0 mg/L [facility] Microalbum Creatinine Ratio Ur 65.7 ug/mg cr [facility] Comment:Albumin/Creatinine R atio Reference Ranges: Normal: < 30 ug/mg creatinine Microalbuminuria: 30 - 300 ug/mg creatinineClinical Albuminuria: > 300 ug/mg creatinine 08/19/2022 9:03 AM EDT 08/19/2022 11:06 AM EDT [facility] External Provider LAB URI NE ORDERABLES Final Result Performing Organization Address [facility] Co de Phone Number [facility] [address] [place] [phone] * Hemoglobin A1c (08/19/2022 9:03 AM EDT) Hemoglobin A1c 7.3 % [facility] Comment:Hemoglobin A1C Refer ence Range Adults: 4.8 - 6.0 % Non diabetic: < 6.0 % Goal: < 7.0 %Additional Action Suggested: > 8.0 %Note: Hemoglobin A1c results are invalid for patients with abnormal amounts of HbF. Blood transfusions may impact the HbA1c concentration in the patient sample. Estimated Average Glucose 163 mg/dL [facility] Comment:eAG = Estimated ave rage glucose which is %A1C expressed asaverage glucose, using the formula of the M8C-AfldvjmBmurciz Glucose study (ADAG), Diabetes Care, Vol.31,#8,Oct. 2007 08/19/2022 9:03 AM EDT 08/19/2022 11:12 AM EDT [facility] External Provider LAB BLO OD ORDERABLES Final Result Performing Organization Address [facility] Co de Phone Number [facility] [address] [place] [phone] * Lipid Panel, Standard (08/19/2022 9:03 AM EDT) Triglycerides 91 mg/dL [facility] Comment:Desirable Triglyceri de: less than 150 mg/dLBorderline High Triglyceride 150-199 mg/dLHigh Triglyceride: 200-499 mg/dLVery High Triglyceride: greater than or equal to 5OO mg/dL Cholesterol 186 mg/dL [facility] Comment:Desirable Cholestero l: less than 200 mg/dLBorderline High Cholesterol: 200-239 mg/dLHigh Cholesterol: greater than 239 mg/dL LDL Cholesterol Calculated 129 mg/dl [facility] Comment:Desirable LDL: less than 100 mg/dLNear Optimal/Above Optimal LDL: 110- 129 mg/dLBorderline High LDL: 130-159 mg/dLHigh LDL: 160-189 mg/dLVery High LDL: greater than or equal to 190 mg/dL HDL Cholesterol 39 mg/dL [facility] Comment:Desirable HDL: great er than 40 mg/dL Note: This HDL assay may give artificially low results in patients with liver disease. 08/19/2022 9:03 AM EDT 08/19/2022 11:12 AM EDT [facility] External Provider LAB BLO OD ORDERABLES Final Result [facility] [address] [place] [address] [phone] * HEPATITIS C AB W/REFL TO HCV RNA, QN, PCR (07/16/2020 9:56 AM EDT) HEPATITIS C ANTIBODY NON-REACT DEN NON-REACT DEN [facility] INDEX 0.02 <1.00 [facility] Comment: ?? HCV antibody was non-reactive. There is no laboratory ?? evidence of HCV infection. ?? In most cases, no further action is required. However, if recent HCV exposure is suspected, a test for HCV RNA (test code 83205) is suggested. ?? For additional information please refer to http://education.MVP Interactive/faq/VYQ45p0 (This link is being provided for informational/ educational purposes only.) ?? 07/16/2020 9:56 AM EDT us Davida Webb IN CLASS SPECIAL EDUCATION TEACHER HISTORICAL/NON ORDERABLE LABS Final Result [facility] [address] * Colonoscopy (05/01/2016) Colonoscopy Normal Normal Narrative Mary Kate Emmanuel - 05/01/2016 Repeat in 10 years Historical Provider MD HEALTH MAINTENANCE Final Result from Last 3 Months or Most Recently Relevant to Health Maintenance Insurance [facility] STANDARD MEDICARE [address] [place] [id number] [facility] STAND ADULT LUIS Gomez LUIS Gomez LUIS Gomez [id number] Care Teams Job Spotter Relationship Specialty Start Date End Date Neptali Palomo DMD [address] [place] [address] LUIS GOMEZ [address] Dentist 05/18/24
--- OUTSIDE RECORDS SUMMARY | 2024-06-27 09:40 | XMS_ITS | Encounter Summary ---
Author Organization [employer] [facility] Address [address] 7t [place] [address] Care Team Providers Care Administrative Executive Name Role Phone Payal Walker Primary Care Provider [phone] Neptali Palomo DMD Unavailable [phone] Encounter Details Date Type Department Care Team (Latest Contact Info) Description 10/03/2018 Abstract [facility] Dental, Provider, DDS Social History Tobacco [...] on filedocumented in this encounter Care Teams Administrative Executive Relationship Specialty Start Date End Date Payal Walker ANP 230 [place] [address] PCP - General Family Medicine 11/20/21 08/04/23 Neptali Palomo DMD [address] [place] [address] Dentist 05/18/24 documented as of this encounter
--- OUTSIDE RECORDS SUMMARY | 2024-06-27 09:40 | XMS_ITS | Encounter Summary ---
Author Organization [employer] Address [address] 7t [place] [address] Care Team Providers Care Director Biostatistics Name Role Phone Neptali Palomo DMD Unavailable [phone] Reason for Visit * Reason Comments Med Refill Encounter Details Date Type Department Care Team (Late st Contact Info) Description 04/14/2024 Refill [facility] MEDICINE 230 [place], [place] [phone] Payal Walker, ANP 230 [place], [place] [phone] Type 2 diabetes mellitus with hyperlipidemia ([facility]/HCC) ([facility]) Social History Tobacco Use Types [...] as of this encounter Care Teams Director Biostatistics Relationship Specialty Start Date End Date Neptali Palomo DMD [address] [place] [address] Dentist 05/18/24 documented as of this encounter
--- OUTSIDE RECORDS SUMMARY | 2024-06-27 09:40 | XMS_ITS | Encounter Summary ---
Author Organization [employer] Address [address] 7t [place] [address] Care Team Providers Care Plywood Factory Worker Name Role Phone Neptali Palomo DMD Unavailable [phone] Reason for Visit * Reason Comments Med Refill Encounter Details Date Type Department Care Team (Late st Contact Info) Description 11/01/2023 Refill [facility] MEDICINE 230 [place], [place] [phone] aPyal Walker, ANP 230 [place], [place] [phone] Primary hypertension Social History Tobacco Use Types [...] documented as of this encounter Care Teams Plywood Factory Worker Relationship Specialty Start Date End Date Neptali Palomo DMD [address] [place] [address] Dentist 05/18/24 documented as of this encounter
--- OUTSIDE RECORDS SUMMARY | 2024-06-27 09:40 | XMS_ITS | Encounter Summary ---
Author Organization [employer] Address [address] 7t [place] [address] Care Team Providers Care Felt Finisher Name Role Phone Walker Payal RUANO Primary Care Provider Neptali Palomo DMD Unavailable Encounter Details Date Type Department Care Team (Late st Contact Info) Description 02/16/2023 Abstract [facility] MEDICINE 230 [place], [place] [phone] Mary Kate Emmanuel Social History Tobacco Use Types Packs/Day Years Used Date Smoking Tobacco: Former Cigarettes Smokeless Tobacco: Never Alcohol Use Standard Drinks/Week Comments Not Currently 0 (1 standard drink = 0.6 oz pur e alcohol) Depression Answer Date Recorded Patient Health Questionnaire-9 Score 0 08/04/2022 Housing Stability Answer Date Recorded What is your housing situation today? I have ingrid satck 01/15/[address] you li [...] on file documented as of this encounter Procedures Procedure [...] documented as of this encounter Care Teams Felt Finisher Relationship Specialty Start Date End Date Payal Walker ANP 230 [place] [address] PCP - General Family Medicine 11/20/21 08/04/23 Neptali Palomo DMD [address] [place] [phone] Dentist 05/18/24 documented as of this encounter
--- OUTSIDE RECORDS SUMMARY | 2024-06-27 09:40 | XMS_ITS | Encounter Summary ---
Author Organization [employer] Address [address] 7t [place] [address] Care Team Providers Care Administrative Office Manager Name Role Phone Walker Payal RUANO Primary Care Provider [phone] Neptali Palomo DMD Unavailable [phone] Reason for Visit * Reason Comments Med Refill Encounter Details Date Type Department Care Team ([facility] st Contact Info) Description 06/25/2023 Refill [facility] MEDICINE 230 [place], [place] [phone] Siena Greenwood MD 230 [place], [place] [phone] GERD without esophagitis Social History Tobacco Use [...] Time PHQ-9 Depression Total Score: 0 08/05/19 2:13 PM EDT documented as of this encounter Care Teams Administrative Office Manager Relationship Specialty Start Date End Date Payal Walker ANP [address] [place] [phone] PCP - General Family Medicine 11/20/21 08/04/23 Neptali Palomo DMD 505 [place] [address] Dentist 05/18/24 documented as of this encounter
--- OUTSIDE RECORDS SUMMARY | 2024-06-27 09:40 | XMS_ITS | Encounter Summary ---
Author Organization [employer] Address [address] 7[address] [place] [address] Care Team Providers Care Trimmer Machine Operator Name Role Phone Neptali Palomo DMD Unavailable [phone] Reason for Visit * Reason Comments Med Refill Encounter Details Date Type Department Care Team (Late st Contact Info) Description 01/28/2024 Refill [facility] MEDICINE 230 [place], [place] [phone] Payal Walker, ANP 230 [place], [place] [phone] Social History Tobacco Use Types Packs/Day Years [...] documented as of this encounter Care Teams Trimmer Machine Operator Relationship Specialty Start Date End Date Neptali Palomo DMD [address] [place] [phone] Dentist 05/18/24 documented as of this encounter
--- OUTSIDE RECORDS SUMMARY | 2024-06-27 09:40 | XMS_ITS | Encounter Summary ---
Author Organization [employer] Address [address] 7t [place] [address] Care Team Providers Care Cardiology Technician Name Role Phone Neptali Palomo DMD Unavailable [phone] Reason for Visit * Reason Comments Med Refill Encounter Details Date Type Department Care Team (Late st Contact Info) Description 11/04/2023 Refill [facility] MEDICINE 230 [place], [place] [phone] Payal Walker, ANP 230 [place], [place] [phone] Type 2 diabetes mellitus with hyperlipidemia ([facility]/HCC) ([facility]) Social History Tobacco Use Types [...] documented as of this encounter Care Teams Cardiology Technician Relationship Specialty Start Date End Date Neptali Palomo DMD [address] [place] [address] Dentist 05/18/24 documented as of this encounter
--- OUTSIDE RECORDS SUMMARY | 2024-06-27 09:40 | XMS_ITS | Encounter Summary ---
Author Organization [employer] Address [address] 7t [place] [address] Care Team Providers Care Tufting Supervisor Name Role Phone Neptali Palomo DMD Unavailable [phone] Reason for Visit * Reason Comments Med Refill Encounter Details Date Type Department Care Team (Late st Contact Info) Description 10/22/2023 Refill [facility] MEDICINE 230 [place], [place] [phone] Payal Walker, ANP 230 [place], [place] [phone] Type 2 diabetes mellitus with hyperlipidemia ([facility]/HCC) ([facility]) Social History Tobacco Use [...] documented as of this encounter Care Teams Tufting Supervisor Relationship Specialty Start Date End Date Neptali Palomo DMD [address] [place] [address] Dentist 05/18/24 documented as of this encounter
--- OUTSIDE RECORDS SUMMARY | 2024-06-27 09:40 | XMS_ITS | Encounter Summary ---
Author Organization [employer] Address [address] [facility] [address] [facility] 7t [place] [address] Care Team Providers Care Thread Grinder Name Role Phone Payal Walker Primary Care Provider [phone] Neptali Palomo DMD Unavailable [phone] Reason for Visit * Reason Comments Med Refill Encounter Details Date Type Department Care Team ([facility] st Contact Info) Description 10/20/2022 Refill [facility] MEDICINE 230 [place], [place] [phone] [place] [facility] 230 [place] [address] Social History Tobacco Use Types Packs/Day Years [...] documented as of this encounter Care Teams Thread Grinder Relationship Specialty Start Date End Date Payal Walker ANP [address] [place] [phone] PCP - General Family Medicine 11/20/21 08/04/23 Neptali Palomo DMD [address] [place] [address] Dentist 05/18/24 documented as of this encounter
--- OUTSIDE RECORDS SUMMARY | 2024-06-27 09:40 | XMS_ITS | Encounter Summary ---
Author Organization [employer] Address [address] [place] [address] Care Team Providers Care Transportation Consultant Name Role Phone Neptali Palomo DMD Unavailable Reason for Visit * Reason Comments Med Refill Encounter Details Date Type Department Care Team (Late st Contact Info) Description 01/28/2024 Refill [facility] MEDICINE 230 [place], [place] [phone] Payal Walker, ANP 230 [place], [place] [phone] Type 2 diabetes mellitus with hyperlipidemia ([facility]/HCC) ([facility] Social History Tobacco Use [...] documented as of this encounter Care Teams Transportation Consultant Relationship Specialty Start Date End Date Neptali Palomo DMD [address] [place] [address] Dentist 05/18/24 documented as of this encounter
--- OUTSIDE RECORDS SUMMARY | 2024-06-27 09:40 | XMS_ITS | Encounter Summary ---
Author Organization [facility] Address [address] [facility] 7t [place] [address] Care Team Providers Care Shim Plug Cutter Name Role Phone Payal Walker Primary Care Provider [phone] Neptali Palomo DMD Unavailable [phone] Encounter Details Date Type Department Care Team (Latest Contact Info) Description 02/12/2020 Abstract [facility] Dental, Provider, DDS Social [...] on filedocumented in this encounter Care Teams Shim Plug Cutter Relationship Specialty Start Date End Date Payal Walker ANP 230 [place] [address] PCP - General Family Medicine 11/20/21 08/04/23 Neptali Palomo DMD 505 [place] [address] Dentist 05/18/24 documented as of this encounter
[2024-06-27 10:25] LABS: Appearance Urine Clear; Color Urine Yellow; Glucose Urine UA >=1000 mg/dL (Negative); Leukocyte Esterase Urine Negative (Negative); Nitrite Urine Negative (Negative); PH 5.5 (5.0-9.0); Specific Gravity - Urine >= 1.030 (1.005-1.025); UMIC TRIGGER UA YES; Urine Blood Negative (Negative); Urine Ketones Trace mg/dL (Negative); Urine Protein 100 (2+) mg/dL (Neg-Trace)
[2024-06-27 10:31] LABS: Bacteria Urine None Seen (None Seen); Hyaline Casts Urine 0-2 /LPF (0-2); RBC Urine 0-2 /HPF (0-2); Squamous Epithelial Cell Urine 0-2 /HPF (0-2); WBC Urine 0-5 /HPF (0-5)
[2024-06-27 11:07] LABS: Anion Gap 12 (12-20); Blood Urea Nitrogen 21 mg/dL (9-16); Calcium 9.3 mg/dL (8.4-10.2); Carbon Dioxide 27 mmol/L (22-29); Chloride 107 mmol/L (96-108); Estimated Glomerular Filt Rate > 60; Glucose Random 77 mg/dL (60-115); Potassium 3.9 mmol/L (3.3-5.1); Sodium 142 mmol/L (135-145)
[2024-06-27 11:18] LABS: Creatinine Urine 161.56 mg/dL; Total Protein Urine Random 53 mg/dL (<12)
== END 2024-06-27 08:58 | disposition home or self-care (01) ==
LOC: HO.HMGCLDS 08:57
PROVIDERS: PCP Nurse Practitioner Family; Visit Provider Internal Medicine Hypertension Specialist
DX: R80.9 Proteinuria, unspecified (principal)
CPT/HCPCS: 36415; 80048; 81001; 82570; 84156

== ENCOUNTER 2024-07-04 11:13 | Outpatient (AMB) | payer MEDICARE, MEDICAID, SELFPAY ==
--- NOTE | 2024-07-04 11:25 | A.OFFVIS_ITS ---
VS Expanded 07/04/24 11:30 Height 5 ft 8 in Weight 183 lb 3.266 oz BMI 27.9 Intake Visit Reasons: T2DM Allergies codeine [CODEINE] Allergy (Intermediate, Verified 06/06/24 13:34) TACHYCARDIA Nutrition Presentation Details: Pt presents for MNT f/u for T2DM Pt reports working on dietary modifications however keeping sedentary food frequency fruits : 3-5 fish 0-1x/wk ve-3 x/wk roots vegetables: 3-4 x/wk beverages: water, juice , sugar free juices starches >22-25 snacks: working on having fruits or crackers, less pastries dairy: 3 /d (with cereal) eoth/smoking:denies typical meal B: oatmeal with berries and milk L: root vegetables and tilapia green beans or sandwich (tuna /short/lettuce/tomato) D: same as lunch or rice/beans/chicken snack: bedtime cereal with milk BS Monitoring Most Recent Diabetes Results: Creatinine 0.91 mg/dL (0.5-1.4) 06/27/24 Blood Urea Nitrogen 21 mg/dL (9-16) H 06/27/24 Sodium 142 mmol/L (135-145) 06/27/24 Potassium 3.9 mmol/L (3.3-5.1) 06/27/24 Chloride 107 mmol/L (96-108) 06/27/24 Carbon Dioxide 27 mmol/L (22-29) 06/27/24 Calcium 9.3 mg/dL (8.4-10.2) 06/27/24 AST 37 U/L (5-37) 06/05/24 ALT 58 U/L (0-40) H 06/05/24 Total Protein 8.0 g/dL (6.5-8.0) 06/05/24 Albumin 4.2 g/dL (3.5-5.0) 06/05/24 [facility] Medical History Palpitations Pancreatitis Arthritis GERD (gastroesophageal reflux disease) CVA (cerebral vascular accident) Microalbuminuric diabetic nephropathy Type II diabetes with meterman use of insulin Erectile dysfunction Vitamin D deficiency Multinodular thyroid Other and unspecified hyperlipidemia Essential hypertension Aortic valve calcification Surgical History History of esophagogastroduodenoscopy (EGD) H/O colonoscopy Family History Father Stroke Brother Stroke Mother Diabetes Social History Household Members: Spouse Housing: House Alcohol intake: never Patient Tobacco Use Status: Former Tobacco user e-Cigarette/Vaping Use: Never Used service: No Current occupational status: disabled Cognitive needs: No Hearing needs: No Vision needs: Yes Assessment & Plan Assessment & Plan (1) Type II diabetes with half-way use of insulin: Code(s): E11.9 - Type 2 diabetes mellitus without complications; Z79.4 - retirement (current) use of insulin Category: Medical Qualifiers: Diabetes mellitus complication detail: with nephropathy Diabetes mellitus complication status: with kidney complications Qualified Code(s): E11.21 - Type 2 diabetes mellitus with diabetic nephropathy; Z79.4 - retirement (current) use of insulin Plan: Wt: 76 Kg ( 02/19 ), 78 kg(04/22), 83kg (07/21) Est kcal needs as per MSJ: 2200 (40% carb, 30% protein/fat) Est fluid needs as per 25-30 ml/d: 2300 Est prot per day as per 1 g/kg bw: 76 Recommend fiber intake : 8-10 g per day and gradually increase to 25-28 g per day for women and 35-38 g for men or as tolerated Recommend sodium intake per day : less than 2300 mg Educated patient on: ( R = reviewed V = verbalizes understanding N/R = needs review N/A = not applicable * Food sources of carbohydrate, adequate serving sizes and its role in various health conditions: R v * Pt to become familiar with total carbohydrate in a meal - start with dinner * Differences between complex carbohydrates a simple carbohydrates, role of fiber in diet: R * Lean protein sources of foods: R * Differences between types of fats and role in diet (mono on saturated fat fatty acids, saturated fatty acids, trans fats): R * Food sources of sodium in salt and healthy modifications for heart health in kidney health: R * Vitamins and minerals: R in foods * Healthy plate method concept: R * Physical activity: Benefits a precaution: R V * Hypoglycemia protocol (rule of 15): R , prevention * Dietary prevention of Hyperglycemia: R Patient Instructions: Include foods with omega 3 at least once a day (nuts, seeds, fish ) Choose foods with Calcium (milk , yogurt ) 1000 mg/d Engage in physical activity walking at least 3 times a week (at least 30 minutes) , always carry with glucose tablets to treat low blood sugar Coding Level of Care Code Nutr Indiv Subseq (22512) Diagnoses Type 2 diabetes mellitus with diabetic nephropathy, with long-term current use of insulin E11.21; Z79.4 Diabetes mellitus complication detail: with nephropathy Diabetes mellitus complication status: with kidney complications Time Spent (min) 30
[2024-07-04 11:30] VITALS: BMI 27.9
--- OUTSIDE RECORDS SUMMARY | 2024-07-04 13:43 | XMS_ITS | Encounter Summary ---
Author Organization [employer] Address [address] [facility] [address] 7[address] [place] [address] Care Team Providers Care Chemist Proteins Name Role Phone Neptali Palomo DMD Unavailable [phone] Reason for Visit * Reason Comments Med Refill Encounter Details Date Type Department Care Team (Late st Contact Info) Description 01/28/2024 Refill [facility] MED[facility]INE 230 [place], [place] [phone] Payal Walker, ANP 230 [place], [place] [phone] Type 2 diabetes mellitus with hyperlipidemia ([facility]/HCC) ([facility]) Social History Tobacco Use Types Packs/Day Years [...] documented as of this encounter Care Teams Chemist Proteins Relationship Specialty Start Date End Date Neptali Palomo DMD [address] [place] [phone] Dentist 05/18/24 documented as of this encounter
--- OUTSIDE RECORDS SUMMARY | 2024-07-04 13:43 | XMS_ITS | Encounter Summary ---
Author Organization [employer] Address 75 [facility] 7t [place] [address] Care Team Providers Care Obstetrical Nurse Name Role Phone Payal Walker Primary Care Provider [phone] Neptali Palomo DMD Unavailable [phone] Reason for Visit * Reason Comments Med Refill Encounter Details Date Type Department Care Team ([facility] st Contact Info) Description 10/20/2022 Refill [facility] MEDICINE 230 [place], [place] [phone] [facility] 230 [place] [address] Social History Tobacco Use Types Packs/Day Years [...] documented as of this encounter Care Teams Obstetrical Nurse Relationship Specialty Start Date End Date Payal Walker ANP [address] [place] [phone] PCP - General Family Medicine 11/20/21 08/04/23 Neptali Palomo DMD [address] [place] [address] Dentist 05/18/24 documented as of this encounter
--- OUTSIDE RECORDS SUMMARY | 2024-07-04 13:43 | XMS_ITS | Encounter Summary ---
Author Organization [employer] Address [address] [facility] [address] 7t [place] [address] Care Team Providers Care Coin Box Inspector Name Role Phone Neptali Palomo DMD Unavailable [phone] Reason for Visit * Reason Comments Med Refill Encounter Details Date Type Department Care Team (Late st Contact Info) Description 11/04/2023 Refill [facility] MEDICINE 230 [place], [place] [phone] Payal Walker, ANP 230 [place], [place] [phone] Type 2 diabetes mellitus with hyperlipidemia ([facility]/HCC) ([facility]) Social History Tobacco Use [...] documented as of this encounter Care Teams Coin Box Inspector Relationship Specialty Start Date End Date Neptali Palomo DMD [address] [place] [phone] Dentist 05/18/24 documented as of this encounter
--- OUTSIDE RECORDS SUMMARY | 2024-07-04 13:43 | XMS_ITS | Encounter Summary ---
Author Organization [employer] Address [address] [facility] [address] 7t [place] [address] Care Team Providers Care Senior Account Executive Name Role Phone Neptali Palomo DMD Unavailable [phone] Reason for Visit * Reason Comments Med Refill Encounter Details Date Type Department Care Team (Late st Contact Info) Description 12/09/2023 Refill [facility] MEDICINE 230 [place], [place] [phone] Payal Walker, ANP 230 [place], [place] [phone] Type 2 diabetes mellitus with hyperlipidemia (CMS/HCC) ([facility]); Primary hypertension Social History Tobacco [...] 2 diabetes mellitus with hyperlipidemia (CMS/HCC) (CMS/[facility]) Primary hypertension Unspecified essential hypertension documented in this encounter Additional Health Concerns Assessment Noted Time PHQ-9 Depression Total Score: 0 08/05/19 23 2:13 PM EDT documented as of this encounter Care Teams Senior Account Executive Relationship Specialty Start Date End Date Neptali Palomo DMD [address] [place] [phone] Dentist 05/18/24 documented as of this encounter
--- OUTSIDE RECORDS SUMMARY | 2024-07-04 13:43 | XMS_ITS | Clinical Summary ---
Author Organization [employer] Address 75 [facility] 7t [place] [address] Care Team Providers Care Assurance Sourcing Manager Name Role Phone Neptali Palomo DMD Unavailable Allergies Active Allergy Reactions Criticality Noted Date [...] 2 diabetes mellitus with hyperlipidemia (CMS/HCC) (CMS/[facility]) Use 1 by To Skin route once daily 100 each 3 05/14/19 23 Active Blood Glucose Monitoring Suppl (FreeStyle Lite) w/Device kitIndications:Typ e 2 diabetes mellitus without complication, unspecified whether watermaster insulin use (CMS/[facility]) 1 each before breakfast, before lunch, and before evening meal. 1 kit 07/11/19 23 Active Continuous Blood Gluc Sales Appointment Coordinator (FreeStyle Agatha 2 [place]) deviceIndications: Type 2 diabetes mellitus with hyperlipidemia (CMS/HCC) (CMS/HCC) 1 each 5 (five) times a day. 1 each 07/28/19 23 Active Continuous Blood Gluc Sensor (FreeStyle Agatha 2 Sensor) miscIndications:Ty pe 2 diabetes mellitus with hyperlipidemia (CMS/HCC) ([facility]) 1 each every 14 (fourteen) days. [...] fasting and chem -referred to neurologist at [place] x stroke f up and to f CT ,MRI findings --unsure if actual aneurysm in CTA? 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 Mild nodularity increases suspicion for cirrhosis Encounters Date Type Department Care Team Description 05/18/2024 10:00 AM EST Office Visit [facility] [address] [place] [address] Neptali Palomo DMD Defective dental sabianism (Primary Dx) 04/14/2024 Refill [facility] MED[facility] 230 [place] [address] Payal Walker ANP Type 2 diabetes mellitus with hyperlipidemia (CMS/HCC) ([facility]/HCC) 04/13/2024 9:00 AM EST Office Visit [facility]ULT [facility] [address] [place] [address] Neptali Palomo, JESSICA Full coverage crown needed [...] Routine 05/18/2024 10:00 AM EST Defective dental sabianism 11 F(V) RESIN-BASED COMPOSITE - 1 SURF, ANTERIOR Routine 05/18/2024 10:00 AM EST Defective dental sabianism 10 MFF(V)L RESIN-BASED COMPOSITE - 3 SURF, ANTERIOR Routine 05/18/2024 10:00 AM EST Defective dental sabianism CASE PRESENTATION, DETAILED AND EXTENSIVE TREATMENT PLANNING [...] 9:03 AM EDT) Creatinine, Urine 89.78 mg/dL [facility] Microalbumin Urine 59.0 mg/L [facility] Microalbum Creatinine Ratio Ur 65.7 ug/mg cr [facility] Comment:Albumin/Creatinine R atio Reference Ranges: Normal: < 30 ug/mg creatinine Microalbuminuria: 30 - 300 ug/mg creatinineClinical Albuminuria: > 300 ug/mg creatinine 08/19/2022 9:03 AM EDT 08/19/2022 11:06 AM EDT [facility] External Provider LAB URI NE ORDERABLES Final Result Performing Organization Address [facility] Co de Phone Number [facility] [address] [place] [phone] * Hemoglobin A1c (08/19/2022 9:03 AM EDT) Hemoglobin A1c 7.3 % [facility] Comment:Hemoglobin A1C Refer ence Range Adults: 4.8 - 6.0 % Non diabetic: < 6.0 % Goal: < 7.0 %Additional Action Suggested: > 8.0 %Note: Hemoglobin A1c results are invalid for patients with abnormal amounts of HbF. Blood transfusions may impact the HbA1c concentration in the patient sample. Estimated Average Glucose 163 mg/dL [facility] Comment:eAG = Estimated ave rage glucose which is %A1C expressed asaverage glucose, using the formula of the K9E-ThvpqylHbcdftg Glucose study (ADAG), Diabetes Care, Vol.31,#8,Oct. 2007 08/19/2022 9:03 AM EDT 08/19/2022 11:12 AM EDT [facility] External Provider LAB BLO OD ORDERABLES Final Result Performing Organization Address [facility] Co de Phone Number [facility] [address] [place] [phone] * Lipid Panel, Standard (08/19/2022 9:03 AM EDT) Triglycerides 91 mg/dL [facility] Comment:Desirable Triglyceri de: less than 150 mg/dLBorderline High Triglyceride 150-199 mg/dLHigh Triglyceride: 200-499 mg/dLVery High Triglyceride: greater than or equal to 5OO mg/dL Cholesterol 186 mg/dL [facility] Comment:Desirable Cholestero l: less than 200 mg/dLBorderline High Cholesterol: 200-239 mg/dLHigh Cholesterol: greater than 239 mg/dL LDL Cholesterol Calculated 129 mg/dl [facility] Comment:Desirable LDL: less than 100 mg/dLNear Optimal/Above Optimal LDL: 110- 129 mg/dLBorderline High LDL: 130-159 mg/dLHigh LDL: 160-189 mg/dLVery High LDL: greater than or equal to 190 mg/dL HDL Cholesterol 39 mg/dL [facility] Comment:Desirable HDL: great er than 40 mg/dL Note: This HDL assay may give artificially low results in patients with liver disease. 08/19/2022 9:03 AM EDT 08/19/2022 11:12 AM EDT [facility] External Provider LAB BLO OD ORDERABLES Final Result [facility] [address] [place] [address] [phone] * HEPATITIS C AB W/REFL TO HCV RNA, QN, PCR (07/16/2020 9:56 AM EDT) HEPATITIS C ANTIBODY NON-REACT DEN NON-REACT [facility] INDEX 0.02 <1.00 [facility] Comment: ?? HCV antibody was non-reactive. There is no laboratory ?? evidence of HCV infection. ?? In most cases, no further action is required. However, if recent HCV exposure is suspected, a test for HCV RNA (test code 70203) is suggested. ?? For additional information please refer to http://education.CyrusOne/faq/PRE49l0 (This link is being provided for informational/ educational purposes only.) ?? 07/16/2020 9:56 AM EDT us Davida Webb EDGE BANDER OPERATOR HISTORICAL/NON ORDERABLE LABS Final Result [facility] [address] * Colonoscopy (05/01/2016) Colonoscopy Normal Normal Narrative Mary Kate Emmanuel - 05/01/2016 Repeat in 10 years Historical Provider MD HEALTH MAINTENANCE Final Result from Last 3 Months or Most Recently Relevant to Health Maintenance Insurance [facility] STANDARD MEDICARE [address] [place] [id number] [place] STAND ADULT LUIS Gomez LUIS Gomez LUIS Gomez [id number] Care Teams Assurance Sourcing Manager Relationship Specialty Start Date End Date Neptali Palomo DMD [address] [place] [address] LUIS GOMEZ [phone] Dentist 05/18/24
--- OUTSIDE RECORDS SUMMARY | 2024-07-04 13:43 | XMS_ITS | Encounter Summary ---
Author Organization [employer] Address [address] [facility] [address] 7t [place] [address] Care Team Providers Care Office Manager Executive Assistant Name Role Phone Neptali Palomo DMD Unavailable [phone] Reason for Visit * Reason Comments Med Refill Encounter Details Date Type Department Care Team (Late st Contact Info) Description 01/28/2024 Refill [facility] MEDICINE 230 [place], [place] [phone] Payal Walker, ANP 230 [place], [place] [phone] Social History Tobacco Use Types Packs/Day Years [...] documented as of this encounter Care Teams Office Manager Executive Assistant Relationship Specialty Start Date End Date Neptali Palomo DMD [address] [place] [phone] Dentist 05/18/24 documented as of this encounter
--- OUTSIDE RECORDS SUMMARY | 2024-07-04 13:43 | XMS_ITS | Encounter Summary ---
Author Organization [employer] Address [address] [facility] [address]t [place] [address] Care Team Providers Care Manager Security Name Role Phone Neptali Palomo DMD Unavailable [phone] Reason for Visit * Reason Comments Med Refill Encounter Details Date Type Department Care Team (Late st Contact Info) Description 04/14/2024 Refill [facility] MEDICINE 230 [place], [place] [phone] Payal Walker, ANP 230 [place], [place] [phone] Type 2 diabetes mellitus with hyperlipidemia ([facility]/HCC) ([facility]) Social History Tobacco Use Types [...] as of this encounter Care Teams Manager Security Relationship Specialty Start Date End Date Neptali Palomo DMD [address] [place] [phone] Dentist 05/18/24 documented as of this encounter
--- OUTSIDE RECORDS SUMMARY | 2024-07-04 13:43 | XMS_ITS | Encounter Summary ---
Author Organization [employer] Address [address] [facility] [address] 7t [place] [address] Care Team Providers Care Van Loader Name Role Phone Aaron Payal RUANO Primary Care Provider Neptali Palomo DMD Unavailable [phone] Reason for Visit * Reason Comments Med Refill Encounter Details Date Type Department Care Team ([facility] st Contact Info) Description 06/25/2023 Refill [facility] MEDICINE 230 [place], [place] [phone] Siena Greenwood MD 230 [place], [place] [phone] GERD without esophagitis Social History Tobacco Use [...] documented as of this encounter Care Teams Van Loader Relationship Specialty Start Date End Date Payal Walker ANP [address] [place] [phone] PCP - General Family Medicine 11/20/21 08/04/23 Neptali Palomo DMD 505 [place] [address] Dentist 05/18/24 documented as of this encounter
--- OUTSIDE RECORDS SUMMARY | 2024-07-04 13:44 | XMS_ITS | Encounter Summary ---
Author Organization [employer] Address [address] [place] [address] Care Team Providers Care Boiler/Chiller Operator Name Role Phone Neptali Palomo DMD Unavailable Reason for Visit * Reason Comments Med Refill Encounter Details Date Type Department Care Team (Late st Contact Info) Description 10/22/2023 Refill [facility] MEDICINE 230 [place], [place] [phone] Payal Walker, ANP 230 [place], [place] [phone] Type 2 diabetes mellitus with hyperlipidemia ([facility]/HCC) ([facility]) Social History Tobacco Use Types Packs/Day Years [...] documented as of this encounter Care Teams Boiler/Chiller Operator Relationship Specialty Start Date End Date Neptali Palomo DMD [address] [place] [phone] Dentist 05/18/24 documented as of this encounter
--- OUTSIDE RECORDS SUMMARY | 2024-07-04 13:44 | XMS_ITS | Encounter Summary ---
Author Organization [employer] Address [address] [facility] [address] 7t [place] [address] Care Team Providers Care Door Worker Name Role Phone Walker Payal RUANO Primary Care Provider [phone] Neptali Palomo DMD Unavailable [phone] Encounter Details Date Type Department Care Team (Late st Contact Info) Description 02/16/2023 Abstract [facility] MEDICINE 230 [place], [place] [phone] Mary Kate Emmanuel Social History Tobacco Use [...] documented as of this encounter Care Teams Door Worker Relationship Specialty Start Date End Date Payal Walker ANP 230 [place] [address] PCP - General Family Medicine 11/20/21 08/04/23 Neptali Palomo DMD [address] [place] [address] Dentist 05/18/24 documented as of this encounter
--- OUTSIDE RECORDS SUMMARY | 2024-07-04 13:44 | XMS_ITS | Encounter Summary ---
Author Organization [employer] [facility] Address [address] [facility] [facility] [address] 7t [place] [address] Care Team Providers Care Access Rep Name Role Phone Payal Walker Primary Care Provider [phone] Neptali Palomo DMD Unavailable [phone] Encounter Details Date Type Department Care [...] on filedocumented in this encounter Care Teams Access Rep Relationship Specialty Start Date End Date Payal Walker ANP 230 [place] [address] PCP - General Family Medicine 11/20/21 08/04/23 Neptali Palomo DMD 505 [place] [address] Dentist 05/18/24 documented as of this encounter
--- OUTSIDE RECORDS SUMMARY | 2024-07-04 13:44 | XMS_ITS | Encounter Summary ---
Author Organization [employer] Address [address] [facility] [address] 7t [place] [address] Care Team Providers Care Joss House Keeper Name Role Phone Neptali Palomo DMD Unavailable Reason for Visit * Reason Comments Med Refill Encounter Details Date Type Department Care Team (Late st Contact Info) Description 11/01/2023 Refill [facility] MEDICINE 230 [place], [place] [phone] Payal Walker, ANP 230 [place], [place] [phone] Primary hypertension Social History Tobacco Use Types [...] documented as of this encounter Care Teams Joss House Keeper Relationship Specialty Start Date End Date Neptali Palomo DMD [address] [place] [address] Dentist 05/18/24 documented as of this encounter
--- OUTSIDE RECORDS SUMMARY | 2024-07-04 13:44 | XMS_ITS | Encounter Summary ---
Author Organization [employer] [facility] Address [address] [facility] [address] [place] [address] Care Team Providers Care Fare Register Repairer Name Role Phone Payal Walker Primary Care Provider [phone] Neptali Palomo DMD Unavailable [phone] Encounter Details Date Type Department Care Team [...] on filedocumented in this encounter Care Teams Fare Register Repairer Relationship Specialty Start Date End Date Payal Walker ANP 230 [place] [address] PCP - General Family Medicine 11/20/21 08/04/23 Neptali Palomo DMD 505 [place] [address] Dentist 05/18/24 documented as of this encounter
== END 2024-07-04 11:59 | disposition home or self-care (01) ==
LOC: HO.ENCR 11:13
PROVIDERS: PCP Nurse Practitioner Family; Visit Provider Dietitian, Registered
DX: E11.21 Type 2 diabetes mellitus with diabetic nephropathy (principal); Z79.4 Long term (current) use of insulin

== ENCOUNTER → 2024-07-04 11:13 | Outpatient (BNVA) | payer MEDICARE, MEDICAID, SELFPAY | PROVIDERS: PCP Nurse Practitioner Family; Visit Provider Dietitian, Registered | DX: E11.21 Type 2 diabetes mellitus with diabetic nephropathy (principal); Z79.4 Long term (current) use of insulin; Z71.3 Dietary counseling and surveillance | CPT/HCPCS: 97803 ==

== ENCOUNTER 2024-07-11 13:51 | Outpatient (AMB) | payer MEDICARE, MEDICAID, SELFPAY ==
[2024-07-11 13:51] VITALS: BP 130/82; PULSE 86; O2SAT 97; BMI 27.6
--- NOTE | 2024-07-11 13:51 | HO.NEPHOV ---
Vital Signs 07/11/24 13:51 Height 5 ft 8 in Weight 181 lb 8 oz BMI 27.6 BP 130/82 Blood Pressure Location Rt brachial Position Sitting Pulse 86 Pulse Source Pulse Oximeter Pulse Oximetry (%) 97 Oxygen Delivery Method Room Air Intake Visit Reasons: Proteinuria/ Conf Agriculture Mechanic Required: Yes Agriculture Mechanic Language: Operations Architect Name: [id number] Allergies codeine [CODEINE] Allergy (Intermediate, Verified 07/11/24 13:53) TACHYCARDIA Medication List - Last Reconciled 07/11/24 by Trent Benjamin MD Admelog SoloStar U-100 Insulin (insulin lispro) 9 units (0.09 mL) subcut TID 30 days NS atorvastatin 80 mg PO DAILY clonazepam 1 mg PO BEDTIME PRN dapagliflozin propanediol (Farxiga) 5 mg PO QAM 90 days fluoxetine 40 mg PO DAILY gabapentin 600 mg PO BEDTIME glucose (Dex4 Glucose) 16 grams (4 x 4 gram) PO Q15M PRN 30 days MDD 16 tablets hydroxyzine HCl 10 mg PO BEDTIME PRN ibuprofen 600 mg PO Q6H PRN insulin glargine (Lantus Solostar U-100 Insulin) 24 units (0.24 mL) subcut QPM 90 days ketorolac 10 mg PO Q6H PRN losartan 25 mg PO DAILY 30 days omeprazole 20 mg PO DAILY 90 days pen needle, diabetic for qid NS tadalafil 5 mg PO DAILY 90 days tamsulosin 0.4 mg PO BEDTIME 90 days HPI Comments Details: 63 yr old man with DM found to have proteinuria recently stated on Losartan 25 mg Renal function has been in normal range No new issues today Agriculture Mechanic service was used [facility] Medical History Palpitations Pancreatitis Arthritis GERD (gastroesophageal reflux disease) CVA (cerebral vascular accident) Microalbuminuric diabetic nephropathy Type II diabetes with mcfp use of insulin Erectile dysfunction Vitamin D deficiency Multinodular thyroid Other and unspecified hyperlipidemia Essential hypertension Aortic valve calcification Surgical History History of esophagogastroduodenoscopy (EGD) H/O colonoscopy Family History Father Stroke Brother Stroke Mother Diabetes Social History Household Members: Spouse Housing: House Alcohol intake: never Patient Tobacco Use Status: Former Tobacco user e-Cigarette/Vaping Use: Never Used service: No Current occupational status: disabled Cognitive needs: No Hearing needs: No Vision needs: Yes Physical Exam Vital Signs: BMI result Body Mass Index 27.6 Comfortable Neck supple no JVD. Lungs entry equal no rales. Heart S1-S2 heard no gallop or rub. Abdomen soft nontender. Neuro alert awake oriented. No asterixis. Extremities no edema. Results Reviewed Nephrology Results: Hgb 16.2 g/dl (14.0-18.0) 06/05/24 WBC 5.3 X10*3/uL (4.8-10.8) 06/05/24 Plt Count 174 X10*3/uL (160-400) 06/05/24 Sodium 142 mmol/L (135-145) 06/27/24 Potassium 3.9 mmol/L (3.3-5.1) 06/27/24 Chloride 107 mmol/L (96-108) 06/27/24 Carbon Dioxide 27 mmol/L (22-29) 06/27/24 BUN 21 mg/dL (9-16) H 06/27/24 Creatinine 0.91 mg/dL (0.5-1.4) 06/27/24 Calcium 9.3 mg/dL (8.4-10.2) 06/27/24 Urine Protein 100 (2+) mg/dL (Neg-Trace) H 06/27/24 Urine Creatinine 161.56 mg/dL 06/27/24 Assessment & Plan Assessment & Plan (1) Proteinuria: Code(s): R80.9 - Proteinuria, unspecified Category: Medical (2) Type 2 diabetes mellitus with unspecified complications: Code(s): E11.8 - Type 2 diabetes mellitus with unspecified complications Category: Medical Plan 63-year-old man with diabetes mellitus with minimal proteinuria most likely due to underlying diabetic kidney disease. Blood pressure is in the normal range. Renal function stable with a creatinine of 0.9 mg/dL. Nondiabetic causes seem less likely at this point. Goal is to slow the progression of the renal disease. Agree with Drew. Maximize TL inhibition. Currently he is on Losartan 25 mg. Since blood pressure is rather on the low side I have not increase the dose. Discussed importance of tight control blood sugar to slow the portion disease. All his questions were answered Orders: Orders Basic Metabolic Panel 6 Months R80.9 - Proteinuria, unspecified Total Protein Urine Random 6 Months R80.9 - Proteinuria, unspecified Creatinine Urine 6 Months R80.9 - Proteinuria, unspecified Coding Level of Care Code Est Pt Level 4 (50334) Diagnoses Proteinuria R80.9 Type 2 diabetes mellitus with unspecified complications E11.8
--- OUTSIDE RECORDS SUMMARY | 2024-07-11 17:02 | XMS_ITS | Encounter Summary ---
Author Organization [employer] Address [address] [facility] [address] 7[address] [place] [address] Care Team Providers Care Experience Designer Name Role Phone Neptali Palomo DMD Unavailable [phone] Reason for Visit * Reason Comments Med Refill Encounter Details Date Type Department Care Team (Late st Contact Info) Description 01/28/2024 Refill [facility] 230 [place], [place] [phone] Payal Walker, ANP 230 [place], [place] [phone] Social History Tobacco Use Types Packs/Day Years [...] documented as of this encounter Care Teams Experience Designer Relationship Specialty Start Date End Date Neptali Palomo DMD [address] [place] [address] Dentist 05/18/24 documented as of this encounter
--- OUTSIDE RECORDS SUMMARY | 2024-07-11 17:02 | XMS_ITS | Encounter Summary ---
Author Organization [employer] Address [address] [facility] 7t [place] [address] Care Team Providers Care Cloth Printing Back Tender Name Role Phone Payal Walker Primary Care Provider [phone] Neptali Palomo DMD Unavailable [phone] Reason for Visit * Reason Comments Med Refill Encounter Details Date Type Department Care Team ([facility] st Contact Info) Description 10/20/2022 Refill [facility] 230 [place], [place] [phone] [facility] 230 [place] [address] Social History Tobacco Use Types Packs/Day Years [...] documented as of this encounter Care Teams Cloth Printing Back Tender Relationship Specialty Start Date End Date Payal Walker ANP [address] [place] [address] PCP - General Family Medicine 11/20/21 08/04/23 Neptali Palomo DMD [address] [place] [address] Dentist 05/18/24 documented as of this encounter
--- OUTSIDE RECORDS SUMMARY | 2024-07-11 17:02 | XMS_ITS | Encounter Summary ---
Author Organization [employer] Address [address] [facility] [address] 7t [place] [address] Care Team Providers Care Security Systems Integrator Name Role Phone Neptali Palomo DMD Unavailable [phone] Reason for Visit * Reason Comments Med Refill Encounter Details Date Type Department Care Team (Late st Contact Info) Description 12/09/2023 Refill [facility] 230 [place], [place] [phone] Payal Walker, ANP 230 [place], [place] [phone] Type 2 diabetes mellitus with hyperlipidemia (CMS/HCC) ([facility]); Primary hypertension Social History Tobacco Use [...] with hyperlipidemia (CMS/HCC) (CMS/[facility]) Primary hypertension Unspecified essential hypertension documented in this encounter Additional Health Concerns Assessment Noted Time PHQ-9 Depression Total Score: 0 08/05/19 23 2:13 PM EDT documented as of this encounter Care Teams Security Systems Integrator Relationship Specialty Start Date End Date Neptali Palomo DMD [address] [place] [address] Dentist 05/18/24 documented as of this encounter
--- OUTSIDE RECORDS SUMMARY | 2024-07-11 17:02 | XMS_ITS | Encounter Summary ---
Author Organization [employer] Address [address] [facility] [address] [facility] [address] 7t [place] [address] Care Team Providers Care Personnel Psychologist Name Role Phone Neptali Palomo DMD Unavailable [phone] Reason for Visit * Reason Comments Med Refill Encounter Details Date Type Department Care Team (Late st Contact Info) Description 04/14/2024 Refill [facility] 230 [place], [place] [phone] Payal Walker, ANP 230 [place], [place] [phone] Type 2 diabetes mellitus with hyperlipidemia ([facility]/HCC) ([facility]) Social History Tobacco Use Types [...] documented as of this encounter Care Teams Personnel Psychologist Relationship Specialty Start Date End Date Neptali Palomo DMD [address] [place] [address] Dentist 05/18/24 documented as of this encounter
--- OUTSIDE RECORDS SUMMARY | 2024-07-11 17:02 | XMS_ITS | Encounter Summary ---
Author Organization [employer] Address [address] [facility] 7t [place] [address] Care Team Providers Care Automation/Controls Manager Name Role Phone Neptali Palomo DMD Unavailable [phone] Reason for Visit * Reason Comments Med Refill Encounter Details Date Type Department Care Team (Late st Contact Info) Description 01/28/2024 Refill [facility] MED[facility]INE 230 [place], [place] [phone] Payal Walker, ANP 230 [place], [place] [phone] Type 2 diabetes mellitus with hyperlipidemia ([facility]/HCC) ([facility]) Social History Tobacco Use Types Packs/Day Years [...] documented as of this encounter Care Teams Automation/Controls Manager Relationship Specialty Start Date End Date Neptali Palomo DMD [address] [place] [address] Dentist 05/18/24 documented as of this encounter
--- OUTSIDE RECORDS SUMMARY | 2024-07-11 17:02 | XMS_ITS | Clinical Summary ---
Author Organization [employer] Address [address] [facility] 7t [place] [address] Care Team Providers Care Family Day Care Worker Name Role Phone Neptali Palomo DMD Unavailable [phone] Allergies Active Allergy Reactions Criticality Noted [...] ype 2 diabetes mellitus with hyperlipidemia (CMS/HCC) (CMS/[facility]) Use 1 by To Skin route once daily 100 each 3 05/14/19 23 Active Blood Glucose Monitoring Suppl (FreeStyle Lite) w/Device kitIndications:Typ e 2 diabetes mellitus without complication, unspecified whether long goods drier insulin use (CMS/[facility]) 1 each before breakfast, before lunch, and before evening meal. 1 kit 07/11/19 23 Active Continuous Blood Gluc Flying I Instructor (FreeStyle Agatha 2 Kalida) deviceIndications: Type 2 diabetes mellitus with hyperlipidemia (CMS/HCC) (CMS/HCC) 1 each 5 (five) times a day. 1 each 07/28/19 23 Active Continuous Blood Gluc Sensor (FreeStyle Agatha 2 Sensor) miscIndications:Ty pe 2 diabetes mellitus with hyperlipidemia (CMS/HCC) ([facility]) 1 each every 14 (fourteen) [...] fasting and chem -referred to neurologist at [place] x stroke f up and to f CT ,MRI findings --unsure if actual aneurysm in CTA? 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 Mild nodularity increases suspicion for cirrhosis Encounters Date Type Department Care Team Description 05/18/2024 10:00 AM EST Office Visit [facility] [address] [place] [address] Neptali Palomo DMD Defective dental rastafarian (Primary Dx) 04/14/2024 Refill [facility] [address] [place] [address] Payal Walker ANP Type 2 diabetes mellitus with hyperlipidemia (CMS/HCC) ([facility]/HCC) 04/13/2024 9:00 AM EST Office Visit [facility] [address] [place] [address] Neptali Palomo, JESSICA Full coverage crown needed [...] Routine 05/18/2024 10:00 AM EST Defective dental rastafarian 11 F(V) RESIN-BASED COMPOSITE - 1 SURF, ANTERIOR Routine 05/18/2024 10:00 AM EST Defective dental rastafarian 10 MFF(V)L RESIN-BASED COMPOSITE - 3 SURF, ANTERIOR Routine 05/18/2024 10:00 AM EST Defective dental rastafarian CASE PRESENTATION, DETAILED AND EXTENSIVE TREATMENT PLANNING [...] 9:03 AM EDT) Creatinine, Urine 89.78 mg/dL [facility] Microalbumin Urine 59.0 mg/L [facility] Microalbum Creatinine Ratio Ur 65.7 ug/mg cr [facility] Comment:Albumin/Creatinine R atio Reference Ranges: Normal: < 30 ug/mg creatinine Microalbuminuria: 30 - 300 ug/mg creatinineClinical Albuminuria: > 300 ug/mg creatinine 08/19/2022 9:03 AM EDT 08/19/2022 11:06 AM EDT [facility] External Provider LAB URI NE ORDERABLES Final Result Performing Organization Address [facility] Co de Phone Number [facility] [address] [place] [phone] * Hemoglobin A1c (08/19/2022 9:03 AM EDT) Hemoglobin A1c 7.3 % [facility] Comment:Hemoglobin A1C Refer ence Range Adults: 4.8 - 6.0 % Non diabetic: < 6.0 % Goal: < 7.0 %Additional Action Suggested: > 8.0 %Note: Hemoglobin A1c results are invalid for patients with abnormal amounts of HbF. Blood transfusions may impact the HbA1c concentration in the patient sample. Estimated Average Glucose 163 mg/dL [facility] Comment:eAG = Estimated ave rage glucose which is %A1C expressed asaverage glucose, using the formula of the W5A-PgwxpwwFwlngxo Glucose study (ADAG), Diabetes Care, Vol.31,#8,Oct. 2007 08/19/2022 9:03 AM EDT 08/19/2022 11:12 AM EDT [facility] External Provider LAB BLO OD ORDERABLES Final Result Performing Organization Address [facility] Co de Phone Number [facility] [address] [place] [phone] * Lipid Panel, Standard (08/19/2022 9:03 AM EDT) Triglycerides 91 mg/dL [facility] Comment:Desirable Triglyceri de: less than 150 mg/dLBorderline High Triglyceride 150-199 mg/dLHigh Triglyceride: 200-499 mg/dLVery High Triglyceride: greater than or equal to 5OO mg/dL Cholesterol 186 mg/dL [facility] Comment:Desirable Cholestero l: less than 200 mg/dLBorderline High Cholesterol: 200-239 mg/dLHigh Cholesterol: greater than 239 mg/dL LDL Cholesterol Calculated 129 mg/dl [facility] Comment:Desirable LDL: less than 100 mg/dLNear Optimal/Above Optimal LDL: 110- 129 mg/dLBorderline High LDL: 130-159 mg/dLHigh LDL: 160-189 mg/dLVery High LDL: greater than or equal to 190 mg/dL HDL Cholesterol 39 mg/dL [facility] Comment:Desirable HDL: great er than 40 mg/dL Note: This HDL assay may give artificially low results in patients with liver disease. 08/19/2022 9:03 AM EDT 08/19/2022 11:12 AM EDT [facility] External Provider LAB BLO OD ORDERABLES Final Result [facility] [address] [place] [address] [phone] * HEPATITIS C AB W/REFL TO HCV RNA, QN, PCR (07/16/2020 9:56 AM EDT) HEPATITIS C ANTIBODY NON-REACT DEN NON-REACT [facility] INDEX 0.02 <1.00 [facility] Comment: ?? HCV antibody was non-reactive. There is no laboratory ?? evidence of HCV infection. ?? In most cases, no further action is required. However, if recent HCV exposure is suspected, a test for HCV RNA (test code 87082) is suggested. ?? For additional information please refer to http://education.Questra/faq/WQB77q1 (This link is being provided for informational/ educational purposes only.) ?? 07/16/2020 9:56 AM EDT us Davida [facility] CT SCAN TECHNICIAN HISTORICAL/NON ORDERABLE LABS Final Result [facility] [address] * Colonoscopy (05/01/2016) Colonoscopy Normal Normal Narrative Mary Kate Emmanuel - 05/01/2016 Repeat in 10 years Historical Provider MD HEALTH MAINTENANCE Final Result from Last 3 Months or Most Recently Relevant to Health Maintenance Insurance [facility] STANDARD MEDICARE [address] [place] [id number] [place] STAND AD[place] LUIS Gomez LUIS Gomez LUIS Gomez [id number] Care Teams Family Day Care Worker Relationship Specialty Start Date End Date Neptali Palomo DMD [address] [place] [address] LUIS GOMEZ [address] Dentist 05/18/24
--- OUTSIDE RECORDS SUMMARY | 2024-07-11 17:02 | XMS_ITS | Encounter Summary ---
Author Organization [employer] Address [address] [facility] [address] 7t [place] [address] Care Team Providers Care Bond Broker Name Role Phone Neptali Palomo DMD Unavailable [phone] Reason for Visit * Reason Comments Med Refill Encounter Details Date Type Department Care Team (Late st Contact Info) Description 11/04/2023 Refill [facility] 230 [place], [place] [phone] Payal Walker, ANP 230 [place], [place] [phone] Type 2 diabetes mellitus with hyperlipidemia ([facility]/HCC) ([facility]) Social History Tobacco Use [...] documented as of this encounter Care Teams Bond Broker Relationship Specialty Start Date End Date Neptali Palomo DMD [address] [place] [phone] Dentist 05/18/24 documented as of this encounter
--- OUTSIDE RECORDS SUMMARY | 2024-07-11 17:03 | XMS_ITS | Encounter Summary ---
Author Organization [employer] Address [address] [facility] [address] 7t [place] [address] Care Team Providers Care Cyber Systems Operations Specialist Name Role Phone Walker Payal RUANO Primary Care Provider [phone] Neptali Palomo DMD Unavailable [phone] Encounter Details Date Type Department Care Team (Late st Contact Info) Description 02/16/2023 [facility] 230 [place], [place] [phone] Mary Kate Emmanuel Social History Tobacco Use [...] documented as of this encounter Care Teams Cyber Systems Operations Specialist Relationship Specialty Start Date End Date Payal Walker ANP 230 [place] [address] PCP - General Family Medicine 11/20/21 08/04/23 Neptali Palomo DMD [address] [place] [address] Dentist 05/18/24 documented as of this encounter
--- OUTSIDE RECORDS SUMMARY | 2024-07-11 17:03 | XMS_ITS | Encounter Summary ---
Author Organization [employer] Address [address] [facility] [address] 7t [place] [address] Care Team Providers Care Knife Finisher Name Role Phone Neptali Palomo DMD Unavailable [phone] Reason for Visit * Reason Comments Med Refill Encounter Details Date Type Department Care Team (Late st Contact Info) Description 10/22/2023 Refill [facility] MED[facility]INE 230 [place], [place] [phone] Payal Walker, ANP 230 [place], [place] [phone] Type 2 diabetes mellitus with hyperlipidemia ([facility]/HCC) ([facility]) Social History Tobacco [...] documented as of this encounter Care Teams Knife Finisher Relationship Specialty Start Date End Date Neptali Palomo DMD [address] [place] [address] Dentist 05/18/24 documented as of this encounter
--- OUTSIDE RECORDS SUMMARY | 2024-07-11 17:03 | XMS_ITS | Encounter Summary ---
Author Organization [employer] [facility] Address [address] [facility] [facility] [address] [place] [address] Care Team Providers Care Groundskeeper Supervisor Name Role Phone Payal Walker Primary Care Provider [phone] Neptali Palomo DMD Unavailable [phone] Encounter Details Date Type Department Care [...] on filedocumented in this encounter Care Teams Groundskeeper Supervisor Relationship Specialty Start Date End Date Payal Walker ANP 230 [place] [address] PCP - General Family Medicine 11/20/21 08/04/23 Neptali Palomo DMD 505 [place] [address] Dentist 05/18/24 documented as of this encounter
--- OUTSIDE RECORDS SUMMARY | 2024-07-11 17:03 | XMS_ITS | Encounter Summary ---
Author Organization [employer] Address [address] [facility] [address]t [place] [address] Care Team Providers Care Senior Living Advisor Name Role Phone Aaron Payal RUANO Primary Care Provider [phone] Neptali Palomo DMD Unavailable [phone] Reason for Visit * Reason Comments Med Refill Encounter Details Date Type Department Care Team ([facility] st Contact Info) Description 06/25/2023 Refill [facility] 230 [place], [place] [phone] Siena Greenwood MD 230 [place], [place] [phone] GERD without esophagitis Social History Tobacco Use [...] as of this encounter Care Teams Senior Living Advisor Relationship Specialty Start Date End Date Payal Walker ANP [address] [place] [phone] PCP - General Family Medicine 11/20/21 08/04/23 Neptali Palomo DMD 505 [place] [address] Dentist 05/18/24 documented as of this encounter
--- OUTSIDE RECORDS SUMMARY | 2024-07-11 17:03 | XMS_ITS | Encounter Summary ---
Author Organization [employer] Address [address] [facility] [address] [place] [address] Care Team Providers Care Pearl Digger Name Role Phone Neptali Palomo DMD Unavailable [phone] Reason for Visit * Reason Comments Med Refill Encounter Details Date Type Department Care Team (Late st Contact Info) Description 11/01/2023 Refill [facility] MEDICINE 230 [place], [place] [phone] Payal Walker, ANP 230 [place], [place] [phone] Primary hypertension Social History Tobacco Use Types [...] documented as of this encounter Care Teams Pearl Digger Relationship Specialty Start Date End Date Neptali Palomo DMD [address] [place] [address] Dentist 05/18/24 documented as of this encounter
--- OUTSIDE RECORDS SUMMARY | 2024-07-11 17:03 | XMS_ITS | Encounter Summary ---
Author Organization [employer] [facility] Address [address] [facility] 7t [place] [address] Care Team Providers Care Glass Bulb Machine Adjuster Name Role Phone Payal Walker Primary Care Provider [phone] Neptali Palomo DMD Unavailable [phone] Encounter Details Date Type Department Care Team [...] on filedocumented in this encounter Care Teams Glass Bulb Machine Adjuster Relationship Specialty Start Date End Date Payal Walker ANP 230 [place] [address] PCP - General Family Medicine 11/20/21 08/04/23 Neptali Palomo DMD 505 [place] [address] Dentist 05/18/24 documented as of this encounter
== END 2024-07-11 14:05 | disposition home or self-care (01) ==
LOC: HO.HKA 13:51
PROVIDERS: PCP Nurse Practitioner Family; Visit Provider Internal Medicine Hypertension Specialist
DX: R80.9 Proteinuria, unspecified (principal); E11.8 Type 2 diabetes mellitus with unspecified complications
CPT/HCPCS: 99214

== ENCOUNTER → 2024-07-11 13:51 | Outpatient (BNVA) | payer MEDICARE, MEDICAID, SELFPAY | PROVIDERS: PCP Nurse Practitioner Family; Visit Provider Internal Medicine Hypertension Specialist | DX: R80.9 Proteinuria, unspecified (principal); E11.8 Type 2 diabetes mellitus with unspecified complications | CPT/HCPCS: 99212 ==

== ENCOUNTER 2024-07-21 11:25 | Outpatient (AMB) | payer MEDICARE, MEDICAID, SELFPAY ==
--- NOTE | 2024-07-21 10:12 | A.OFFVIS_ITS ---
Vital Signs 07/21/24 11:23 Height 5 ft 8 in Weight 182 lb 15.739 oz BMI 27.8 BP 132/88 Blood Pressure Location Rt brachial Position Sitting Pulse 80 Pulse Source Pulse Oximeter Pulse Oximetry (%) 97 Oxygen Delivery Method Room Air Intake Visit Reasons: T2DM Intake Note: Patient presents today for a follow-up on Type 2 Diabetes Mellitus: Last Diabetic eye exam was on: DUE Last Podiatry exam was on: Patient does not see a Biomass Power Plant Superintendent Most recent HbA1c: 7.6%, 07/21/2024 Random Glucose- 121 mg/dL, Today Museum Exhibit Designer Required: Yes Museum Exhibit Designer Language: Account Relationship Manager Services: Museum Exhibit Designer Offered & Declined Accompanied by: Self / Same As Patient Allergies codeine [CODEINE] Allergy (Intermediate, Verified 07/21/24 11:33) TACHYCARDIA Medication List - Last Reconciled 07/21/24 by Karla Parra NP Admelog SoloStar U-100 Insulin (insulin lispro) 80-150 8 units 151-200 10 units 201-312 units over 314 units subcutaneously 3 times a day; 30 days MDD 42 units NS atorvastatin 80 mg PO DAILY clonazepam 1 mg PO BEDTIME PRN dapagliflozin propanediol (Farxiga) 5 mg PO QAM 90 days fluoxetine 40 mg PO DAILY gabapentin 600 mg PO BEDTIME glucose (Dex4 Glucose) 16 grams (4 x 4 gram) PO Q15M PRN 30 days MDD 16 tablets hydroxyzine HCl 10 mg PO BEDTIME PRN ibuprofen 600 mg PO Q6H PRN ketorolac 10 mg PO Q6H PRN losartan 25 mg PO DAILY 30 days omeprazole 20 mg PO DAILY 90 days pen needle, diabetic As directed pen needle, diabetic for qid NS pioglitazone 15 mg PO DAILY 30 days tadalafil 5 mg PO DAILY 90 days tamsulosin 0.4 mg PO BEDTIME 90 days Tresiba FlexTouch U-200 (insulin degludec) 28 units (0.14 mL) subcut BEDTIME NS HPI Comments Details: David used for bell clerk serices This is a 63-year-old male with a past medical history of pancreatitis, pancreatic mass, multinodular thyroid, vitamin-D deficiency, hypertension, aortic valve stenosis and type 2 diabetes presenting for diabetic management. Hemoglobin 07/21/24 %, A1c 03/23/2024 7.7%, 08/11/2023 7.0% He has met with the hospital educator to discuss going on an insulin pump. He has met with transfer pumper and feels that he would be able to carbohydrate g count with the resources she gave him. He is interested in an Omnipod. He was previously on Trulicity which was discontinued secondary to pancreatitis. Metformin caused GI side effects Patient was previously on Jardiance which worked very well, and he did not have side effects, but his insurance had stopped covering it at 1 point. Denies history of infections Freestyle manda sensor 3 average glucose: 215 14 day continuous glucose sensor report reviewed Glucose Management indicator 8.5 % Time CGM active 97 % TIme in ranges: Twenty-three % very high (above 250) 50 % high (181-250) 27 % in range (70-180] 0 % low (69-55) 0 % very low (below 54) 24.5 Glucose variability (target <36%) Interpretation of CGMS readings overall running 45 points above target Current medication regimen: Lantus 24 units nightly Humalog 9 units 3 times a day before meals Farxiga 5 mg QD Patient is not having any juice or soda. He does not smoke. He does not drink alcohol. He has a lot of salad and some rice in his diet. Avoids pasta. Complications: Diabetic eye exam in 01/2024 . No known retinopathy. Patient has nephropathy ( microalbuminuria). 03/23/2024 eGFR>60 08/09/2023 microalbumin 54.0 he is now being [place] [facility] [place] has a history of CVA. [facility] Medical History Palpitations Pancreatitis Arthritis GERD (gastroesophageal reflux disease) CVA (cerebral vascular accident) Microalbuminuric diabetic nephropathy Type II diabetes with longterm use of insulin Erectile dysfunction Vitamin D deficiency Multinodular thyroid Other and unspecified hyperlipidemia Essential hypertension Aortic valve calcification Surgical History History of esophagogastroduodenoscopy (EGD) H/O colonoscopy Family History Father Stroke Brother Stroke Mother Diabetes Social History Household Members: Spouse Housing: House Alcohol intake: never Patient Tobacco Use Status: Former Tobacco user e-Cigarette/Vaping Use: Never Used service: No Current occupational status: disabled Cognitive needs: No Hearing needs: No Vision needs: Yes Physical Exam Vital Signs: Last Vital Signs Pulse 80 07/21/24 11:23 BP 132/88 07/21/24 11:23 Pulse Ox 97 07/21/24 11:23 Oxygen Delivery Method Room Air 07/21/24 11:23 BMI result Body Mass Index 27.8 Const Other: Absence of Cushingoid features. Absence of acromegalic features. Neck exam reveals nl size thyroid about 15 gms. No thyroid nodules palpable. Heart S1 S2, Reg R/R. No M/R G. Skin exam reveals absence of vitiligo or acanthosis nigricans. Visual exam of foot performed. No ulcerations or open lesions. No inter digit maceration or fissuring. No onychomycosis, no callouses. Sensation intact to monofilament exam. Vibratory sensation is normal with 128 Hz tuning fork. Results AMB Hemoglobin A1c AMB Hemoglobin A1c 7.6 % Last Edit by IDANIA Ronquillo on 07/21/24 11:49 Results Reviewed Results Reviewed: Laboratory Last Values Glucose (Clinic) 121 mg/dL (60-115) H 07/21/24 11:34 Hgb A1c (Clinic) 7.6 % (4.0-6.0) H 07/21/24 11:48 Assessment & Plan Assessment & Plan (1) Type 2 diabetes mellitus with unspecified complications: Code(s): E11.8 - Type 2 diabetes mellitus with unspecified complications Category: Medical Plan: This is a 63-year-old male with a history of type 2 diabetes the setting of pancreatitis being treated with basal-bolus insulin and Farxiga with fair control with known microvascular complications of macrovascular complications namely nephropathy and CVA. Two week glucose average 215, New dosing; tresiba 28 units at bedtime Humalog T.i.d. with meals 80-150 8 units 151-200 10 units 201-300 12 units Above 300 14 units farxiga 5mg add pioglitizone low dose as patient has a history of previous CVA and this may reduce the risk. Proceed with pre pump training patient is interested in Omnipod 5 should consider using freestyle 2+ as he was already comfortable with the freestyle sensor. The patient had an opportunity to ask questions regarding treatment plan. The patient expressed understanding and agreement with the above treatment plan. The patient is aware they should contact our office by phone for worsening glucose readings or for any low blood sugars which may warrant a change in diabetes medication. Compliance is encouraged with medications and any followup testing/consults which may have been ordered. (2) Type II diabetes with ad terminal makeup operator use of insulin: Code(s): E11.9 - Type 2 diabetes mellitus without complications; Z79.4 - halfway (current) use of insulin Category: Medical Qualifiers: Diabetes mellitus complication detail: with nephropathy Diabetes mellitus complication status: with kidney complications Qualified Code(s): E11.21 - Type 2 diabetes mellitus with diabetic nephropathy; Z79.4 - halfway (current) use of insulin Plan: as above Orders: Orders AMB Hemoglobin A1c Today E11.21 - Type 2 diabetes mellitus with diabetic nephropathy, Z79.4 - marine oil terminal superintendent (current) use of insulin AMB Glucose Monitoring Today E11.21 - Type 2 diabetes mellitus with diabetic nephropathy, Z79.4 - marine oil terminal superintendent (current) use of insulin Medications: New pioglitazone 15 mg PO DAILY 30 tabs 6RF 30 days Tresiba FlexTouch U-200 (insulin degludec) 28 units (0.14 mL) subcut BEDTIME 6 mL 6RF NS Changed From Admelog SoloStar U-100 Insulin (insulin lispro) 9 units (0.09 mL) subcut TID 30 days 9 mL 11RF NS To Admelog SoloStar U-100 Insulin (insulin lispro) 80-150 8 units 151-200 10 units 201-312 units over 314 units subcutaneously 3 times a day; 15 mL 11RF 30 days MDD 42 units NS Discontinued insulin glargine (Lantus Solostar U-100 Insulin) Discontinued Reason: Doctor's Order 24 units (0.24 mL) subcut QPM 90 days 24 mL 3RF Patient Instructions: The patient was counseled to achieve a target A1C of 7% (154 avg). Fasting blood sugars should be 90-130 in the morning and less than 180 two hours after meals. Reviewed the relationship between poor diabetic control and the development of complications. Take 15 carb carbohydrate grams to treat a low sugar (3-4 glucose tablets, half a glass of juice or 15 carbohydrate grams of soft candy such as gummie snacks). Recheck your sugar in 15 minutes and re-treat again with 15 carbohydrate grams if low or still with symptoms. Do not drive a car or operate machinery if you do not know what your blood sugar is, if it is low or in excess of 300. Check your feet daily looking for any signs of infection, drainage, redness, ulceration and seek medical attention if this occurs. Break in shoes gradually and do not wear open-toed shoes or walk stocking footed or barefooted. Coding Level of Care Code Tele Est Pt Level 5 (82249) Complex EM visit Add On G2211 Diagnoses Type 2 diabetes mellitus with unspecified complications E11.8 Type 2 diabetes mellitus with diabetic nephropathy, with long-term current use of insulin E11.21; Z79.4 Diabetes mellitus complication detail: with nephropathy Diabetes mellitus complication status: with kidney complications Time Spent (min) 60 Comment Time spent reviewing labs/provider notes, face to face, chart doc
[2024-07-21 11:23] VITALS: BP 132/88; PULSE 80; O2SAT 97; BMI 27.8
[2024-07-21 11:38] LABS: Glucose, Whole Blood 121 mg/dL (60-115)
--- OUTSIDE RECORDS SUMMARY | 2024-07-21 12:22 | XMS_ITS | Encounter Summary ---
Author Organization [employer] Address [address] [place] [address] Care Team Providers Care International Marketing Specialist Name Role Phone Neptali Palomo DMD Unavailable [phone] Reason for Visit * Reason Comments Med Refill Encounter Details Date Type Department Care Team (Late st Contact Info) Description 11/04/2023 Refill [facility] MED[facility]INE [address] [place], [place] [phone] Payal Walker, ANP [address] [place], [place] [phone] Type 2 diabetes mellitus with hyperlipidemia ([facility]/HCC) ([facility]) Social History Tobacco Use Types [...] documented as of this encounter Care Teams International Marketing Specialist Relationship Specialty Start Date End Date Neptali Palomo DMD [address] [place] [phone] Dentist 05/18/24 documented as of this encounter
--- OUTSIDE RECORDS SUMMARY | 2024-07-21 12:22 | XMS_ITS | Clinical Summary ---
Author Organization [employer] Address [address] [facility] [address]t [place] [address] Care Team Providers Care Commercial Account Executive Name Role Phone Neptali Palomo DMD Unavailable [phone] Allergies Active Allergy Reactions Criticality Noted [...] ype 2 diabetes mellitus with hyperlipidemia (CMS/HCC) (CMS/[facility]) Use 1 by To Skin route once daily 100 each 3 05/14/19 23 Active Blood Glucose Monitoring Suppl (FreeStyle Lite) w/Device kitIndications:Typ e 2 diabetes mellitus without complication, unspecified whether longwall shearer operator insulin use (CMS/[facility]) 1 each before breakfast, before lunch, and before evening meal. 1 kit 07/11/19 23 Active Continuous Blood Gluc Director Of Labor Relations (FreeStyle Agatha 2 [place]) deviceIndications: Type 2 diabetes mellitus with hyperlipidemia (CMS/HCC) (CMS/HCC) 1 each 5 (five) times a day. 1 each 07/28/19 23 Active Continuous Blood Gluc Sensor (FreeStyle Agatha 2 Sensor) miscIndications:Ty pe 2 diabetes mellitus with hyperlipidemia (CMS/HCC) ([facility]) 1 each every 14 (fourteen) [...] fasting and chem -referred to neurologist at [place] x stroke f up and to f CT ,MRI findings --unsure if actual aneurysm in CTA? 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 Mild nodularity increases suspicion for cirrhosis Encounters Date Type Department Care Team Description 05/18/2024 10:00 AM EST Office Visit [facility]ULT D[facility] [address] [place] [address] Dewey, Neptali, DMD Defective dental amish (Primary Dx) from Last 3 Months Immunizations [...] Additional history exists Dental X-Ray: Bitewings 12/01/2024 12/01/19, 02/01/2023, 02/01/2020, Additional history exists Tobacco Screening [...] Routine 05/18/2024 10:00 AM EST Defective dental amish 11 F(V) RESIN-BASED COMPOSITE - 1 SURF, ANTERIOR Routine 05/18/2024 10:00 AM EST Defective dental amish 10 MFF(V)L RESIN-BASED COMPOSITE - 3 SURF, ANTERIOR Routine 05/18/2024 10:00 AM EST Defective dental amish PROPHYLAXIS - ADULT Routine 12/01/2023 2 :00 [...] 9:03 AM EDT) Creatinine, Urine 89.78 mg/dL [facility] Microalbumin Urine 59.0 mg/L [facility] Microalbum Creatinine Ratio Ur 65.7 ug/mg cr [facility] Comment:Albumin/Creatinine R atio Reference Ranges: Normal: < 30 ug/mg creatinine Microalbuminuria: 30 - 300 ug/mg creatinineClinical Albuminuria: > 300 ug/mg creatinine 08/19/2022 9:03 AM EDT 08/19/2022 11:06 AM EDT us [facility] External Provider LAB URI NE ORDERABLES Final Result [facility] [address] [place] [phone] * Hemoglobin A1c (08/19/2022 9:03 AM EDT) Hemoglobin A1c 7.3 % [facility] Comment:Hemoglobin A1C Refer ence Range Adults: 4.8 - 6.0 % Non diabetic: < 6.0 % Goal: < 7.0 %Additional Action Suggested: > 8.0 %Note: Hemoglobin A1c results are invalid for patients with abnormal amounts of HbF. Blood transfusions may impact the HbA1c concentration in the patient sample. Estimated Average Glucose 163 mg/dL [facility] Comment:eAG = Estimated ave rage glucose which is %A1C expressed asaverage glucose, using the formula of the G2W-VpypbtpTkjwwft Glucose study (ADAG), Diabetes Care, Vol.31,#8,Oct. 2007 08/19/2022 9:03 AM EDT 08/19/2022 11:12 AM EDT us [facility] External Provider LAB BLO OD ORDERABLES Final Result [facility] [address] [place] [address] [phone] * Lipid Panel, Standard (08/19/2022 9:03 AM EDT) Triglycerides 91 mg/dL [facility] Comment:Desirable Triglyceri de: less than 150 mg/dLBorderline High Triglyceride 150-199 mg/dLHigh Triglyceride: 200-499 mg/dLVery High Triglyceride: greater than or equal to 5OO mg/dL Cholesterol 186 mg/dL [facility] Comment:Desirable Cholestero l: less than 200 mg/dLBorderline High Cholesterol: 200-239 mg/dLHigh Cholesterol: greater than 239 mg/dL LDL Cholesterol Calculated 129 mg/dl [facility] Comment:Desirable LDL: less than 100 mg/dLNear Optimal/Above Optimal LDL: 110- 129 mg/dLBorderline High LDL: 130-159 mg/dLHigh LDL: 160-189 mg/dLVery High LDL: greater than or equal to 190 mg/dL HDL Cholesterol 39 mg/dL [facility] Comment:Desirable HDL: great er than 40 mg/dL Note: This HDL assay may give artificially low results in patients with liver disease. 08/19/2022 9:03 AM EDT 08/19/2022 11:12 AM EDT [facility] External Provider LAB BLO OD ORDERABLES Final Result Performing Organization Address [facility]/ZIP Co de Phone Number [facility] [address] [place] [address] [phone] * HEPATITIS C AB W/REFL TO HCV RNA, QN, PCR (07/16/2020 9:56 AM EDT) HEPATITIS C ANTIBODY NON-REACT DEN NON-REACT DEN [facility] INDEX 0.02 <1.00 [facility] Comment: ?? HCV antibody was non-reactive. There is no laboratory ?? evidence of HCV infection. ?? In most cases, no further action is required. However, if recent HCV exposure is suspected, a test for HCV RNA (test code 92747) is suggested. ?? For additional information please refer to http://education.PolicyStat/faq/XUU44u2 (This link is being provided for informational/ educational purposes only.) ?? 07/16/2020 9:56 AM EDT Davida Webb GAS BOOSTER ENGINEER HISTORICAL/NON ORDERABLE LABS Final Result Performing Organization Address [facility] Co de Phone Number [facility] [address] [place] [address], * Hm Colonoscopy (05/01/2016) Colonoscopy Normal Normal Narrative Mary Kate Emmanuel - 05/01/2016 Repeat in 10 years Historical Provider MD HEALTH MAINTENANCE Final Result from Last 3 Months or Most Recently Relevant to Health Maintenance Insurance MEDICARE DENTAL-[facility] MEDICAID STAND ADULT [place] LU[place] Gomez Care Teams Commercial Account Executive Relationship Specialty Start Date End Date Neptali Palomo DMD [address] [place] [phone] Dentist 05/18/24
--- OUTSIDE RECORDS SUMMARY | 2024-07-21 12:22 | XMS_ITS | Encounter Summary ---
Author Organization [employer] Address [address] [place] [address] Care Team Providers Care Computerized Mill Mill Recorder Name Role Phone Neptali Palomo DMD Unavailable [phone] Reason for Visit * Reason Comments Med Refill Encounter Details Date Type Department Care Team (Late st Contact Info) Description 12/09/2023 Refill [facility] MEDICINE [address] [place], [place] [phone] Payal Walker, ANP [address] [place], [place] [phone] Type 2 diabetes mellitus with hyperlipidemia (CMS/HCC) ([facility]); Primary hypertension Social History Tobacco Use [...] 2 diabetes mellitus with hyperlipidemia (CMS/HCC) (CMS/[facility]) Primary hypertension Unspecified essential hypertension documented in this encounter Additional Health Concerns Assessment Noted Time PHQ-9 Depression Total Score: 0 08/05/19 23 2:13 PM EDT documented as of this encounter Care Teams Computerized Mill Mill Recorder Relationship Specialty Start Date End Date Neptali Palomo DMD [address] [place] [phone] Dentist 05/18/24 documented as of this encounter
--- OUTSIDE RECORDS SUMMARY | 2024-07-21 12:22 | XMS_ITS | Encounter Summary ---
Author Organization [employer] Address [address] [place] [address] Care Team Providers Care Line Prep Cook Name Role Phone Neptali Palomo DMD Unavailable [phone] Reason for Visit * Reason Comments Med Refill Encounter Details Date Type Department Care Team (Late st Contact Info) Description 01/28/2024 Refill [facility] MED[facility]INE [address] [place], [place] [phone] Payal Walker, ANP [address] [place], [place] [phone] Social History Tobacco Use Types Packs/Day Years [...] documented as of this encounter Care Teams Line Prep Cook Relationship Specialty Start Date End Date Neptali Palomo DMD [address] [place] [address] Dentist 05/18/24 documented as of this encounter
--- OUTSIDE RECORDS SUMMARY | 2024-07-21 12:22 | XMS_ITS | Encounter Summary ---
Author Organization [employer] Address [address] [place] [address] Care Team Providers Care Engineering Drafter Name Role Phone Walker Payal RUANO Primary Care Provider [phone] Neptali Palomo DMD Unavailable [phone] Encounter Details Date Type Department Care Team (Late st Contact Info) Description 02/16/2023 Abstract [facility] 230 [place], [place] [phone] Mary Kate Emmanuel Social History Tobacco Use [...] documented as of this encounter Care Teams Engineering Drafter Relationship Specialty Start Date End Date Payal Walker ANP [address] [place] [address] PCP - General Family Medicine 11/20/21 08/04/23 Neptali Palomo DMD [address] [place] [phone] Dentist 05/18/24 documented as of this encounter
--- OUTSIDE RECORDS SUMMARY | 2024-07-21 12:22 | XMS_ITS | Encounter Summary ---
Author Organization [employer] Address [address] [place] [address] Care Team Providers Care Soap Chipper Name Role Phone Neptali Palomo DMD Unavailable [phone] Reason for Visit * Reason Comments Med Refill Encounter Details Date Type Department Care Team (Late st Contact Info) Description 04/14/2024 Refill [facility] MEDICINE 230 [place], [place] [phone] Payal Walker, ANP [address] [place], [place] [phone] Type 2 diabetes mellitus with hyperlipidemia ([facility]/HCC) ([facility]) Social History Tobacco Use Types Packs/Day [...] documented as of this encounter Care Teams Soap Chipper Relationship Specialty Start Date End Date Neptali Palomo DMD [address] [place] [phone] Dentist 05/18/24 documented as of this encounter
--- OUTSIDE RECORDS SUMMARY | 2024-07-21 12:22 | XMS_ITS | Encounter Summary ---
Author Organization [employer] Address [address] [facility] [address] [place] [address] Care Team Providers Care Drawer In Plain Loom Name Role Phone Neptali Palomo DMD Unavailable [phone] Reason for Visit * Reason Comments Med Refill Encounter Details Date Type Department Care Team (Late st Contact Info) Description 10/22/2023 Refill [facility] MEDICINE [address] [place], [place] [phone] Payal Walker, ANP [address] [place], [place] [phone] Type 2 diabetes mellitus with hyperlipidemia ([facility]/HCC) ([facility]) Social History Tobacco Use Types Packs/Day [...] documented as of this encounter Care Teams Drawer In Plain Loom Relationship Specialty Start Date End Date Neptali Palomo DMD [address] [place] [phone] Dentist 05/18/24 documented as of this encounter
--- OUTSIDE RECORDS SUMMARY | 2024-07-21 12:22 | XMS_ITS | Encounter Summary ---
Author Organization [employer] Address [address] [facility] [address] [place] [address] Care Team Providers Care Medical Insurance Verifier Name Role Phone Aaron Payal RUANO Primary Care Provider [phone] Neptali Palomo DMD Unavailable [phone] Reason for Visit * Reason Comments Med Refill Encounter Details Date Type Department Care Team ([facility] st Contact Info) Description 06/25/2023 Refill [facility] MEDICINE 230 [place], [place] [phone] Siena Greenwood MD [address] [place], [place] [phone] GERD without esophagitis Social History Tobacco Use [...] as of this encounter Care Teams Medical Insurance Verifier Relationship Specialty Start Date End Date Payal Walker ANP [address] [place] [phone] PCP - General Family Medicine 11/20/21 08/04/23 Neptali Palomo DMD [address] [place] [address] Dentist 05/18/24 documented as of this encounter
--- OUTSIDE RECORDS SUMMARY | 2024-07-21 12:22 | XMS_ITS | Encounter Summary ---
Author Organization [employer] [place] [facility] Address [address] [facility] [address]t [place] [address] Care Team Providers Care Order Detailer Name Role Phone Payal Walker Primary Care Provider [phone] Neptali Palomo DMD Unavailable [phone] Encounter Details Date Type Department Care [...] on filedocumented in this encounter Care Teams Order Detailer Relationship Specialty Start Date End Date Payal Walker ANP 230 [place] [address] PCP - General Family Medicine 11/20/21 08/04/23 Neptali Palomo DMD [address] [place] [address] Dentist 05/18/24 documented as of this encounter
--- OUTSIDE RECORDS SUMMARY | 2024-07-21 12:22 | XMS_ITS | Encounter Summary ---
Author Organization [employer] Address [address] 7t [place] [address] Care Team Providers Care Lab Assistant Name Role Phone Neptali Palomo DMD Unavailable [phone] Reason for Visit * Reason Comments Med Refill Encounter Details Date Type Department Care Team (Late st Contact Info) Description 11/01/2023 Refill [facility] MEDICINE 230 [place], [place] [phone] Payal Walker, ANP 230 [place], [place] [phone] Primary hypertension Social History Tobacco Use Types [...] documented as of this encounter Care Teams Lab Assistant Relationship Specialty Start Date End Date Neptali Palomo DMD [address] [place] [address] Dentist 05/18/24 documented as of this encounter
--- OUTSIDE RECORDS SUMMARY | 2024-07-21 12:22 | XMS_ITS | Encounter Summary ---
Author Organization [facility] Address [address] [facility] 7t [place] [address] Care Team Providers Care Obstetrics Scrub Nurse Name Role Phone Payal Walker Primary Care Provider [phone] Neptali Palomo DMD Unavailable [phone] Encounter Details Date Type Department Care [...] on filedocumented in this encounter Care Teams Obstetrics Scrub Nurse Relationship Specialty Start Date End Date Payal Walker ANP 230 [place] [address] PCP - General Family Medicine 11/20/21 08/04/23 Neptali Palomo DMD 505 [place] [address] Dentist 05/18/24 documented as of this encounter
--- OUTSIDE RECORDS SUMMARY | 2024-07-21 12:22 | XMS_ITS | Encounter Summary ---
Author Organization [employer] Address [address] [facility] 7t [place] [address] Care Team Providers Care Jail Guard Name Role Phone Neptali Palomo DMD Unavailable [phone] Reason for Visit * Reason Comments Med Refill Encounter Details Date Type Department Care Team (Late st Contact Info) Description 01/28/2024 Refill [facility] MEDICINE 230 [place], [place] [phone] Payal Walker, ANP 230 [place], [place] [phone] Type 2 diabetes mellitus with hyperlipidemia ([facility]/HCC) ([facility]) Social History Tobacco Use Types Packs/Day Years [...] documented as of this encounter Care Teams Jail Guard Relationship Specialty Start Date End Date Neptali Palomo DMD [address] [place] [address] Dentist 05/18/24 documented as of this encounter
--- OUTSIDE RECORDS SUMMARY | 2024-07-21 12:22 | XMS_ITS | Encounter Summary ---
Author Organization [employer] Address [address] [facility] 7t [place] [address] Care Team Providers Care Room Service Server Name Role Phone Payal Walker Primary Care Provider [phone] Neptali Palomo DMD Unavailable [phone] Reason for Visit * Reason Comments Med Refill Encounter Details Date Type Department Care Team ([facility] st Contact Info) Description 10/20/2022 Refill [facility] MEDICINE 230 [place], [place] [phone] [place] 230 [place] [address] Social History Tobacco Use Types Packs/Day Years [...] documented as of this encounter Care Teams Room Service Server Relationship Specialty Start Date End Date Payal Walker ANP [address] [place] [address] PCP - General Family Medicine 11/20/21 08/04/23 Neptali Palomo DMD [address] [place] [address] Dentist 05/18/24 documented as of this encounter
== END 2024-07-21 12:16 | disposition home or self-care (01) ==
LOC: HO.ENCR 11:25
PROVIDERS: PCP Nurse Practitioner Family; Visit Provider Nurse Practitioner Adult Health
DX: E11.8 Type 2 diabetes mellitus with unspecified complications (principal); E11.21 Type 2 diabetes mellitus with diabetic nephropathy; Z79.4 Long term (current) use of insulin
CPT/HCPCS: 99215; G2211

== ENCOUNTER → 2024-07-21 11:25 | Outpatient (BNVA) | payer MEDICARE, MEDICAID, SELFPAY | PROVIDERS: PCP Nurse Practitioner Family; Visit Provider Nurse Practitioner Adult Health | DX: E11.21 Type 2 diabetes mellitus with diabetic nephropathy (principal); Z79.4 Long term (current) use of insulin; Z79.899 Other long term (current) drug therapy | CPT/HCPCS: 82947; 83036; 99212 ==

== ENCOUNTER → 2024-07-23 11:14 | Outpatient (BNV) | payer MEDICARE, MEDICAID, SELFPAY | PROVIDERS: PCP Nurse Practitioner Family; Visit Provider Radiology Diagnostic Radiology | DX: K86.89 Other specified diseases of pancreas (principal) | CPT/HCPCS: 74183 ==

== ENCOUNTER 2024-07-23 13:40 | Outpatient (REF) | payer MEDICARE, MEDICAID, SELFPAY ==
[2024-07-23] MEDS: gadobutroL 10 ML VIAL IVPUSH (12:46)
== END 2024-07-23 13:41 | disposition home or self-care (01) ==
LOC: HO.MRI 13:40
PROVIDERS: PCP Nurse Practitioner Family; Visit Provider Nurse Practitioner Family
DX: K86.2 Cyst of pancreas (principal)
CPT/HCPCS: 74183; A9585

== ENCOUNTER 2024-07-27 08:08 | Outpatient (AMB) | payer MEDICARE, MEDICAID, SELFPAY ==
--- OUTSIDE RECORDS SUMMARY | 2024-07-27 08:17 | XMS_ITS | Encounter Summary ---
Author Organization [employer] Address [address] 7t [place] [address] Care Team Providers Care Office Assistant Receptionist Name Role Phone Neptali Palomo DMD Unavailable [phone] Reason for Visit * Reason Comments Med Refill Encounter Details Date Type Department Care Team (Late st Contact Info) Description 01/28/2024 Refill [facility] MEDICINE 230 [place], [place] [phone] Payal Walker, ANP 230 [place], [place] [phone] Social History Tobacco Use Types Packs/Day Years [...] Care Team (Late st Contact Info) Description 08/18/2024 9:00 AM EDT Office Visit [facility] ADULT DENTAL 505 [place] [address] Neptali Palomo DMD 505 [place] [address] documented as of this encounter Visit Diagnoses Not on filedocumented in this encounter Additional Health Concerns Assessment Noted Time PHQ-9 Depression Total Score: 0 08/05/19 2:13 PM EDT documented as of this encounter Care Teams Office Assistant Receptionist Relationship Specialty Start Date End Date Neptali Palomo DMD 505 [place] [address] Dentist 05/18/24 documented as of this encounter
--- OUTSIDE RECORDS SUMMARY | 2024-07-27 08:17 | XMS_ITS | Encounter Summary ---
Author Organization [employer] Address [address] [facility] 7t [place] [address] Care Team Providers Care Irradiated Fuel Handler Name Role Phone Walker Payal RUANO Primary Care Provider [phone] Neptali Palomo DMD Unavailable [phone] Reason for Visit * Reason Comments Med Refill Encounter Details Date Type Department Care Team (Late st Contact Info) Description 10/20/2022 Refill [facility] MEDICINE 230 [place], [place] [phone] [place] [facility] 230 [place] [address] Social History Tobacco Use Types Packs/Day Years [...] Description 08/18/2024 9:00 AM EDT Office Visit [facility]C ADULT DENTAL 505 [place], [place] [phone] Neptali Palomo, JESSICA 505 [place], [place] [phone] documented as of this encounter Visit Diagnoses Not on filedocumented in this encounter Additional Health Concerns Assessment Noted Time PHQ-9 Depression Total Score: 0 08/05/19 23 2:13 PM EDT documented as of this encounter Care Teams Irradiated Fuel Handler Relationship Specialty Start Date End Date Payal Walker ANP [address] [place] [address] PCP - General Family Medicine 11/20/21 08/04/23 Neptali Palomo DMD [address] [place] [address] Dentist 05/18/24 documented as of this encounter
--- OUTSIDE RECORDS SUMMARY | 2024-07-27 08:17 | XMS_ITS | Encounter Summary ---
Author Organization [employer] Address [address] 7t [place] [address] Care Team Providers Care Magnetic Resonance Imaging Coordinator Name Role Phone eNptali Palomo DMD Unavailable [phone] Reason for Visit * Reason Comments Med Refill Encounter Details Date Type Department Care Team (Late st Contact Info) Description 11/04/2023 Refill [facility] MEDICINE 230 [place], [place] [phone] Payal Walker, ANP 230 [place], [place] [phone] Type 2 diabetes mellitus with hyperlipidemia ([facility]/HCC) ([facility]) Social History Tobacco Use Types [...] Description 08/18/2024 9:00 AM EDT Office Visit [facility] AD[facility] D[facility] 505 [place] [address] Neptali Palomo DMD 505 [place] [address] documented as of this encounter Visit Diagnoses Diagnosis Type 2 diabetes mellitus with hyperlipidemia (CMS/HCC) (CMS/HCC) documented in this encounter Additional Health Concerns Assessment Noted Time PHQ-9 Depression Total Score: 0 08/05/19 23 2:13 PM EDT documented as of this encounter Care Teams Magnetic Resonance Imaging Coordinator Relationship Specialty Start Date End Date Neptali Palomo DMD 505 [place] [address] Dentist 05/18/24 documented as of this encounter
--- OUTSIDE RECORDS SUMMARY | 2024-07-27 08:17 | XMS_ITS | Encounter Summary ---
Author Organization [employer] Address [address] 7t [place] [address] Care Team Providers Care Wrap Knitting Machine Operator Name Role Phone Neptali Palomo DMD Unavailable [phone] Reason for Visit * Reason Comments Med Refill Encounter Details Date Type Department Care Team (Late st Contact Info) Description 01/28/2024 Refill [facility] MEDICINE 230 [place], [place] [phone] Payal Walker, ANP 230 [place], [place] [phone] Type 2 diabetes mellitus with hyperlipidemia ([facility]/HCC) ([facility]) Social History Tobacco Use Types [...] Description 08/18/2024 9:00 AM EDT Office Visit [facility] ADULT DENTAL 505 [place] [address] Neptali Palomo DMD 505 [place] [address] documented as of this encounter Visit Diagnoses Diagnosis Type 2 diabetes mellitus with hyperlipidemia (CMS/HCC) (CMS/HCC) documented in this encounter Additional Health Concerns Assessment Noted Time PHQ-9 Depression Total Score: 0 08/05/19 23 2:13 PM EDT documented as of this encounter Care Teams Wrap Knitting Machine Operator Relationship Specialty Start Date End Date Neptali Palomo DMD 505 [place] [address] Dentist 05/18/24 documented as of this encounter
--- OUTSIDE RECORDS SUMMARY | 2024-07-27 08:17 | XMS_ITS | Encounter Summary ---
Author Organization [email or web address] Address [address] 7t [place] [address] Care Team Providers Care Lead Pressman Name Role Phone Neptali Palomo DMD Unavailable [phone] Reason for Visit * Reason Comments Med Refill Encounter Details Date Type Department Care Team (Late st Contact Info) Description 12/09/2023 Refill [facility] MEDICINE 230 [place], [place] [phone] Payal Walker, ANP 230 [place], [place] [phone] Type 2 diabetes mellitus with hyperlipidemia (CMS/HCC) ([facility]); Primary hypertension Social History Tobacco Use Types [...] Description 08/18/2024 9:00 AM EDT Office Visit [facility] ADULT DENTAL 505 [place] [address] Neptali Palomo DMD 505 [place] [address] documented as of this encounter Visit Diagnoses Diagnosis Type 2 diabetes mellitus with hyperlipidemia (CMS/HCC) (CMS/HCC) Primary hypertension Unspecified essential hypertension documented in this encounter Additional Health Concerns Assessment Noted Time PHQ-9 Depression Total Score: 0 08/05/19 23 2:13 PM EDT documented as of this encounter Care Teams Lead Pressman Relationship Specialty Start Date End Date Neptali Palomo DMD 505 [place] [address] Dentist 05/18/24 documented as of this encounter
--- OUTSIDE RECORDS SUMMARY | 2024-07-27 08:18 | XMS_ITS | Encounter Summary ---
Author Organization [employer] Address [address] 7t [place] [address] Care Team Providers Care Manager Action Name Role Phone Neptali Palomo DMD Unavailable [phone] Reason for Visit * Reason Comments Med Refill Encounter Details Date Type Department Care Team (Late st Contact Info) Description 10/22/2023 Refill [facility] MEDICINE 230 [place], [place] [phone] Payal Walker, ANP 230 [place], [place] [phone] Type 2 diabetes mellitus with hyperlipidemia ([facility]/HCC) ([facility]) Social History Tobacco Use Types [...] [facility] ADULT DENTAL 505 [place] [address] Neptali Palomo DMD 505 [place] [address] documented as of this encounter Visit Diagnoses Diagnosis Type 2 diabetes mellitus with hyperlipidemia (CMS/HCC) (CMS/HCC) documented in this encounter Additional Health Concerns Assessment Noted Time PHQ-9 Depression Total Score: 0 08/05/19 23 2:13 PM EDT documented as of this encounter Care Teams Manager Action Relationship Specialty Start Date End Date Neptali Palomo DMD 505 [place] [address] Dentist 05/18/24 documented as of this encounter
--- OUTSIDE RECORDS SUMMARY | 2024-07-27 08:18 | XMS_ITS | Encounter Summary ---
Author Organization [employer] Address [address] 7t [place] [address] Care Team Providers Care Warehousing Technician Name Role Phone Walker Payal RUAON Primary Care Provider [phone] Neptali Palomo DMD Unavailable [phone] Reason for Visit * Reason Comments Med Refill Encounter Details Date Type Department Care Team ([facility] st Contact Info) Description 06/25/[address] [facility] MEDICINE 230 [place], [place] [phone] Siena Greenwood MD 230 [place], [place] [phone] GERD without esophagitis Social History Tobacco Use [...] Office Visit [facility] ADULT D[facility]AL 505 [place] [address] Neptali Palomo DMD 505 [place] [address] documented as of this encounter Visit Diagnoses Diagnosis GERD without esophagitis Esophageal reflux documented in this encounter Additional Health Concerns Assessment Noted Time PHQ-9 Depression Total Score: 0 08/05/19 2:13 PM EDT documented as of this encounter Care Teams Warehousing Technician Relationship Specialty Start Date End Date Payal Walker ANP 230 [place] [address] PCP - General Family Medicine 11/20/21 08/04/23 Neptali Palomo DMD 505 [place] [address] Dentist 05/18/24 documented as of this encounter
--- OUTSIDE RECORDS SUMMARY | 2024-07-27 08:18 | XMS_ITS | Encounter Summary ---
Author Organization [employer] Address [address] 7t [place] [address] Care Team Providers Care Press Tender Star Signal Name Role Phone Neptali Paolmo DMD Unavailable [phone] Reason for Visit * Reason Comments Med Refill Encounter Details Date Type Department Care Team (Late st Contact Info) Description 04/14/2024 Refill [facility] MEDICINE 230 [place], [place] [phone] Payal Walker, ANP 230 [place], [place] [phone] Type 2 diabetes mellitus with hyperlipidemia ([facility]/HCC) ([facility]) Social History Tobacco Use Types Packs/Day Years Used Date Smoking Tobacco: Former Cigarettes Smokeless Tobacco: Never Alcohol Use Standard Drinks/Week Comments Not Currently 0 (1 standard drink = 0.6 oz pur e alcohol) Depression Answer Date Recorded Patient Health Questionnaire-9 Score 0 08/04/2022 Housing Stability Answer Date Recorded What is your housing situation today? I have ignrid stack 01/15/[address] you [...] Description 08/18/2024 9:00 AM EDT Office Visit [facility] ADULT DENTAL 505 [place] [address] Neptali Palomo DMD 505 [place] [address] documented as of this encounter Visit Diagnoses Diagnosis Type 2 diabetes mellitus with hyperlipidemia (CMS/HCC) (CMS/HCC) documented in this encounter Additional Health Concerns Assessment Noted Time PHQ-9 Depression Total Score: 0 08/05/19 23 2:13 PM EDT documented as of this encounter Care Teams Press Tender Star Signal Relationship Specialty Start Date End Date Neptali Palomo DMD 505 [place] [address] Dentist 05/18/24 documented as of this encounter
--- OUTSIDE RECORDS SUMMARY | 2024-07-27 08:18 | XMS_ITS | Encounter Summary ---
Author Organization [facility] Address [address] [facility] 7t [place] [address] Care Team Providers Care Wind Farm Support Specialist Name Role Phone Payal Walker Primary Care Provider [phone] Neptali Palomo DMD Unavailable [phone] Encounter Details Date Type Department Care Team (Latest Contact Info) Description 02/12/2020 Abstract [facility] CONVERSIONS Dental, Provider, DDS Social History Tobacco [...] Upcoming Encounters Date Type Department Care Team ([facility] st Contact Info) Description 08/18/2024 9:00 AM EDT Office Visit [facility] CHC ADULT DENTAL 505 [place], [place] [phone] Neptali Palomo DMD 505 [place] [address] documented as of this encounter Visit Diagnoses Not on filedocumented in this encounter Care Teams Wind Farm Support Specialist Relationship Specialty Start Date End Date Payal Walker ANP 230 [place] [address] PCP - General Family Medicine 11/20/21 08/04/23 Neptali Palomo DMD [address] [place], [place] Dentist 05/18/24 documented as of this encounter
--- OUTSIDE RECORDS SUMMARY | 2024-07-27 08:18 | XMS_ITS | Encounter Summary ---
Author Organization [employer] [facility] Address [address] [facility] 7t [place] [address] Care Team Providers Care Early Childhood Services Coordinator Name Role Phone Payal Walker Primary Care Provider [phone] Neptali Palomo DMD Unavailable [phone] Encounter Details Date Type Department Care Team (Latest Contact Info) Description 10/03/2018 Abstract [facility] CONVERSIONS Dental, Provider, DDS Social [...] Upcoming Encounters Date Type Department Care Team ([facility] st Contact Info) Description 08/18/2024 9:00 AM EDT Office Visit [facility] CHC ADULT DENTAL 505 [place], [place] [phone] Neptali Palomo DMD 505 [place] [address] documented as of this encounter Visit Diagnoses Not on filedocumented in this encounter Care Teams Early Childhood Services Coordinator Relationship Specialty Start Date End Date Payal Walker ANP 230 [place] [address] PCP - General Family Medicine 11/20/21 08/04/23 Neptali Palomo DMD 505 [place], [place] Dentist 05/18/24 documented as of this encounter
--- OUTSIDE RECORDS SUMMARY | 2024-07-27 08:18 | XMS_ITS | Encounter Summary ---
Author Organization [employer] Address [address] 7t [place] [address] Care Team Providers Care Used Car Make Ready Worker Name Role Phone Walker Payal RUANO Primary Care Provider [phone] Neptali Palomo DMD Unavailable [phone] Encounter Details Date Type Department Care Team (Late st Contact Info) Description 02/16/2023 Abstract [facility] MEDICINE 230 [place], [place] [phone] Mary Kate Emmanuel Social History Tobacco Use [...] Description 08/18/2024 9:00 AM EDT Office Visit [facility] ADULT DENT[facility] 505 [place] [address] Neptali Palomo DMD 505 [place] [address] documented as of this encounter Procedures Procedure [...] documented as of this encounter Care Teams Used Car Make Ready Worker Relationship Specialty Start Date End Date Payal Walker ANP [address] [place] [address] PCP - General Family Medicine 11/20/21 08/04/23 Neptali Palomo DMD 505 [place] [address] Dentist 05/18/24 documented as of this encounter
--- OUTSIDE RECORDS SUMMARY | 2024-07-27 08:18 | XMS_ITS | Clinical Summary ---
Author Organization [employer] Address [address] [facility] 7t [place] [address] Care Team Providers Care Submarine Diver Name Role Phone Neptali Palomo DMD Unavailable [phone] Allergies Active Allergy Reactions Criticality Noted [...] ype 2 diabetes mellitus with hyperlipidemia (CMS/HCC) (CMS/[facility]) Use 1 by To Skin route once daily 100 each 3 05/14/19 23 Active Blood Glucose Monitoring Suppl (FreeStyle Lite) w/Device kitIndications:Typ e 2 diabetes mellitus without complication, unspecified whether intermission coordinator insulin use (CMS/[facility]) 1 each before breakfast, before lunch, and before evening meal. 1 kit 07/11/19 23 Active Continuous Blood Gluc Flatwork Assembler (FreeStyle Agatha 2 [place]) deviceIndications: Type 2 diabetes mellitus with hyperlipidemia (CMS/HCC) (CMS/HCC) 1 each 5 (five) times a day. 1 each 07/28/19 23 Active Continuous Blood Gluc Sensor (FreeStyle Agatha 2 Sensor) miscIndications:Ty pe 2 diabetes mellitus with hyperlipidemia (CMS/HCC) ([facility]) 1 each every 14 (fourteen) [...] fasting and chem -referred to neurologist at [place] x stroke f up and to f CT ,MRI findings --unsure if actual aneurysm in CTA? 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 Mild nodularity increases suspicion for cirrhosis Encounters Date Type Department Care Team Description 05/18/2024 10:00 AM EST Office Visit [facility] [address] [place] [address] Dewey, Neptali, DMD Defective dental jew (Primary Dx) from Last 3 Months Immunizations [...] 9:00 AM EDT Office Visit [facility] [address] [place] [address] Neptali Palomo, JESSICA [address] [place] [address] Health Maintenance Due Date Last Done Comments [...] Routine 05/18/2024 10:00 AM EST Defective dental jew 11 F(V) RESIN-BASED COMPOSITE - 1 SURF, ANTERIOR Routine 05/18/2024 10:00 AM EST Defective dental jew 10 MFF(V)L RESIN-BASED COMPOSITE - 3 SURF, ANTERIOR Routine 05/18/2024 10:00 AM EST Defective dental jew PROPHYLAXIS - ADULT Routine 12/01/2023 2 :00 [...] 9:03 AM EDT) Creatinine, Urine 89.78 mg/dL [facility] Microalbumin Urine 59.0 mg/L [facility] Microalbum Creatinine Ratio Ur 65.7 ug/mg cr [facility] Comment:Albumin/Creatinine R atio Reference Ranges: Normal: < 30 ug/mg creatinine Microalbuminuria: 30 - 300 ug/mg creatinineClinical Albuminuria: > 300 ug/mg creatinine 08/19/2022 9:03 AM EDT 08/19/2022 11:06 AM EDT [facility] External Provider LAB URI NE ORDERABLES Final Result Performing Organization Address [facility] Co de Phone Number [facility] [address] [place] [address] [phone] * Hemoglobin A1c (08/19/2022 9:03 AM EDT) Hemoglobin A1c 7.3 % [facility] Comment:Hemoglobin A1C Refer ence Range Adults: 4.8 - 6.0 % Non diabetic: < 6.0 % Goal: < 7.0 %Additional Action Suggested: > 8.0 %Note: Hemoglobin A1c results are invalid for patients with abnormal amounts of HbF. Blood transfusions may impact the HbA1c concentration in the patient sample. Estimated Average Glucose 163 mg/dL [facility] Comment:eAG = Estimated ave rage glucose which is %A1C expressed asaverage glucose, using the formula of the Z7U-WqaetdyLlhhpxz Glucose study (ADAG), Diabetes Care, Vol.31,#8,2007 08/19/2022 9:03 AM EDT 08/19/2022 11:12 AM EDT [facility] External Provider LAB BLO OD ORDERABLES Final Result Performing Organization Address [facility] Co de Phone Number [facility] [address] [place] [phone] * Lipid Panel, Standard (08/19/2022 9:03 AM EDT) Triglycerides 91 mg/dL [facility] Comment:Desirable Triglyceri de: less than 150 mg/dLBorderline High Triglyceride 150-199 mg/dLHigh Triglyceride: 200-499 mg/dLVery High Triglyceride: greater than or equal to 5OO mg/dL Cholesterol 186 mg/dL [facility] Comment:Desirable Cholestero l: less than 200 mg/dLBorderline High Cholesterol: 200-239 mg/dLHigh Cholesterol: greater than 239 mg/dL LDL Cholesterol Calculated 129 mg/dl [facility] Comment:Desirable LDL: less than 100 mg/dLNear Optimal/Above Optimal LDL: 110- 129 mg/dLBorderline High LDL: 130-159 mg/dLHigh LDL: 160-189 mg/dLVery High LDL: greater than or equal to 190 mg/dL HDL Cholesterol 39 mg/dL [facility] Comment:Desirable HDL: great er than 40 mg/dL Note: This HDL assay may give artificially low results in patients with liver disease. 08/19/2022 9:03 AM EDT 08/19/2022 11:12 AM EDT [facility] External Provider LAB BLO OD ORDERABLES Final Result Performing Organization Address City/[facility]/ZIP Co de Phone Number [facility] [address] [place] [address] [phone] * HEPATITIS C AB W/REFL TO HCV RNA, QN, PCR (07/16/2020 9:56 AM EDT) HEPATITIS C ANTIBODY NON-REACT DEN NON-REACT DEN [facility] INDEX 0.02 <1.00 [facility] Comment: ?? HCV antibody was non-reactive. There is no laboratory ?? evidence of HCV infection. ?? In most cases, no further action is required. However, if recent HCV exposure is suspected, a test for HCV RNA (test code 98210) is suggested. ?? For additional information please refer to http://education.NEHP.Envivio/faq/SYG87o1 (This link is being provided for informational/ educational purposes only.) ?? 07/16/2020 9:56 AM EDT Davida [facility] [employer] HISTORICAL/NON ORDERABLE LABS Final Result Performing Organization Address City/[facility]/ZIP Co de Phone Number [facility] [address] [place] [address], * Hm Colonoscopy (05/01/2016) Colonoscopy Normal Normal Narrative Mary Kate Emmanuel 05/01/2016 Repeat in 10 years us Historical Provider HEALTH MAINTENANCE Final Result from Last 3 Months or Most Recently Relevant to Health Maintenance Insurance [facility] STANDARD MEDIC[place] [id number] DENTAL-[facility] MEDICAID STAND ADULT LUIS Gomez [id number] LUIS Gomez [id number] LUIS Gomez [id number] Care Teams Submarine Diver Relationship Specialty Start Date End Date Neptali Palomo DMD [address] [place] [address] LUIS GOMEZ [phone] Dentist 05/18/24
--- OUTSIDE RECORDS SUMMARY | 2024-07-27 08:18 | XMS_ITS | Encounter Summary ---
Author Organization [employer] Address [address] [facility] [address] 7t [place] [address] Care Team Providers Care Vessel Liner Name Role Phone Neptali Palomo DMD Unavailable [phone] Reason for Visit * Reason Comments Med Refill Encounter Details Date Type Department Care Team (Late st Contact Info) Description 11/01/2023 Refill [facility] [address] [place], [place] [phone] Payal Walker, ANP [address] [place], [place] [phone] Primary hypertension Social History Tobacco Use Types [...] 9:00 AM EDT Office Visit [facility] ADULT D[facility] [address] [place] [address] Neptali Palomo DMD [address] [place] [address] documented as of this encounter Visit Diagnoses Diagnosis Primary hypertension Unspecified essential hypertension documented in this encounter Additional Health Concerns Assessment Noted Time PHQ-9 Depression Total Score: 0 08/05/19 23 2:13 PM EDT documented as of this encounter Care Teams Vessel Liner Relationship Specialty Start Date End Date Neptali Palomo DMD [address] [place] [address] Dentist 05/18/24 documented as of this encounter
--- NOTE | 2024-07-27 08:59 | MHC.AMDMED ---
Intake Intake Visit Reasons: T2DM Allergies codeine [CODEINE] Allergy (Intermediate, Verified 07/21/24 11:33) TACHYCARDIA HPI Comprehensive Diabetes Asmnt Most Recent Diabetes Results: Hemoglobin A1c TNP % 02/20/19 Microalb/Creat Ratio 51.4 ug/mg cr (<30) H 08/09/23 Cholesterol 264 mg/dL (<200) H 03/21/24 HDL Cholesterol 47 mg/dL (>40) 03/21/24 Triglycerides 136 mg/dL (<150) 03/21/24 Creatinine 0.91 mg/dL (0.5-1.4) 06/27/24 Blood Urea Nitrogen 21 mg/dL (9-16) H 06/27/24 Sodium 142 mmol/L (135-145) 06/27/24 Potassium 3.9 mmol/L (3.3-5.1) 06/27/24 Chloride 107 mmol/L (96-108) 06/27/24 Carbon Dioxide 27 mmol/L (22-29) 06/27/24 Calcium 9.3 mg/dL (8.4-10.2) 06/27/24 AST 37 U/L (5-37) 06/05/24 ALT 58 U/L (0-40) H 06/05/24 Total Protein 8.0 g/dL (6.5-8.0) 06/05/24 Albumin 4.2 g/dL (3.5-5.0) 06/05/24 [facility] Medical History Palpitations Pancreatitis Arthritis GERD (gastroesophageal reflux disease) CVA (cerebral vascular accident) Microalbuminuric diabetic nephropathy Type II diabetes with chcf use of insulin Erectile dysfunction Vitamin D deficiency Multinodular thyroid Other and unspecified hyperlipidemia Essential hypertension Aortic valve calcification Surgical History History of esophagogastroduodenoscopy (EGD) H/O colonoscopy Family History Father Stroke Brother Stroke Mother Diabetes Social History Household Members: Spouse Housing: House Alcohol intake: never Patient Tobacco Use Status: Former Tobacco user e-Cigarette/Vaping Use: Never Used service: No Current occupational status: disabled Cognitive needs: No Hearing needs: No Vision needs: Yes Assessment & Plan Assessment & Plan (1) Type 2 diabetes mellitus with unspecified complications: Code(s): E11.8 - Type 2 diabetes mellitus with unspecified complications Plan: Patient considering using Omnipod 5 insulin pump or iLet insulin pump. Reviewed the similarities in the differences between the 2 insulin delivery systems. Patient reports he would like to start the iLet which is compatible with the Agatha 3 sensor. Demonstrated to patient how to insert both the inset and Sure-T infusion set. Patient reports he would like to use the inset. Demonstrated to patient how to fill cartridge for iLet. Explained pros and cons of insulin pumps. Showed pt various pumps, infusion sets, and cgms currently available. Reviewed need to wear pump 24/7 and need to change infusion set every 3 days. Also stressed importance of frequent BG checks, 4x daily minimum or use pump that is integrated with CGM.? TDD:50 units Patient demonstrated motivation for continued insulin pump education and understands the need to complete education prior to starting insulin pump for best outcome. Portions of this note were created using voice recognition software, please excuse any words or phrases that may have been misinterpreted. Patient Instructions: Patient will call clinic for pump training. Coding Level of Care Code Est Pt Level 1 (60276) Diagnoses Type 2 diabetes mellitus with unspecified complications E11.8
== END 2024-07-27 09:40 | disposition home or self-care (01) ==
LOC: HO.ENCR 08:08
PROVIDERS: PCP Nurse Practitioner Family; Visit Provider Registered Nurse Diabetes Educator
DX: E11.8 Type 2 diabetes mellitus with unspecified complications (principal)

== ENCOUNTER → 2024-07-27 08:08 | Outpatient (BNVA) | payer MEDICARE, MEDICAID, SELFPAY | PROVIDERS: PCP Nurse Practitioner Family; Visit Provider Registered Nurse Diabetes Educator | DX: E11.8 Type 2 diabetes mellitus with unspecified complications (principal); Z79.4 Long term (current) use of insulin | CPT/HCPCS: 99211 ==

== ENCOUNTER 2024-08-02 08:27 | Outpatient (AMB) | payer MEDICARE, MEDICAID, SELFPAY ==
--- OUTSIDE RECORDS SUMMARY | 2024-08-02 08:39 | XMS_ITS | Encounter Summary ---
Author Organization [employer] Address [address] [place] [address] 7 [place] [address] Care Team Providers Care Solar Sales Manager Name Role Phone Aaron Payal RUANO Primary Care Provider [phone] Neptali Palomo DMD Unavailable [phone] Reason for Visit * Reason Comments Med Refill Encounter Details Date Type Department Care Team (Late st Contact Info) Description 10/20/2022 Refill [facility] [address] [place], [place] [phone] [facility] [address] [place] [address] Social History Tobacco Use Types Packs/Day Years [...] 9:00 AM EDT Office Visit [facility] [address] [place], [place] [phone] Neptali Palomo, DMD [address] [place], [place] [phone] documented as of this encounter Visit Diagnoses Not on filedocumented in this encounter Additional Health Concerns Assessment Noted Time PHQ-9 Depression Total Score: 0 08/05/19 23 2:13 PM EDT documented as of this encounter Care Teams Solar Sales Manager Relationship Specialty Start Date End Date Payal Walker ANP [address] [place] [phone] PCP - General Family Medicine 11/20/21 08/04/23 Neptali Palomo DMD [address] [place] [address] Dentist 05/18/24 documented as of this encounter
--- OUTSIDE RECORDS SUMMARY | 2024-08-02 08:39 | XMS_ITS | Encounter Summary ---
Author Organization [email or web address] Address [address] [facility] 7t [place] [address] Care Team Providers Care Paperhanger Supervisor Name Role Phone Neptali Palomo DMD Unavailable Reason for Visit * Reason Comments Med Refill Encounter Details Date Type Department Care Team (Late st Contact Info) Description 01/28/2024 Refill [facility] MED[facility]INE [address] [place], [place] [phone] Payal Walker, ANP [address] [place], [place] [phone] Type 2 diabetes mellitus with hyperlipidemia ([facility]/HCC) ([facility]) Social History Tobacco Use Types Packs/Day Years [...] AM EDT Office Visit [facility] ADULT D[facility] [address] [place] [address] Neptali Palomo DMD [address] [place] [address] documented as of this encounter Visit Diagnoses Diagnosis Type 2 diabetes mellitus with hyperlipidemia (CMS/HCC) (CMS/HCC) documented in this encounter Additional Health Concerns Assessment Noted Time PHQ-9 Depression Total Score: 0 08/05/19 23 2:13 PM EDT documented as of this encounter Care Teams Paperhanger Supervisor Relationship Specialty Start Date End Date Neptali Palomo DMD [address] [place] [address] Dentist 05/18/24 documented as of this encounter
--- OUTSIDE RECORDS SUMMARY | 2024-08-02 08:39 | XMS_ITS | Encounter Summary ---
Author Organization [email or web address] Address [address] [facility] 7t [place] [address] Care Team Providers Care Splash Line Operator Name Role Phone Aaron Payal RUANO Primary Care Provider [phone] Neptali Palomo DMD Unavailable [phone] Reason for Visit * Reason Comments Med Refill Encounter Details Date Type Department Care Team ([facility] st Contact Info) Description 06/25/2023 Refill [facility] MEDICINE [address] [place], [place] [phone] Siena Greenwood MD [address] [place], [place] [phone] GERD without esophagitis Social History Tobacco Use [...] [facility] [address] [place] [address] Neptali Palomo DMD [address] [place] [address] documented as of this encounter Visit Diagnoses Diagnosis GERD without esophagitis Esophageal reflux documented in this encounter Additional Health Concerns Assessment Noted Time PHQ-9 Depression Total Score: 0 08/05/19 2:13 PM EDT documented as of this encounter Care Teams Splash Line Operator Relationship Specialty Start Date End Date Payal Walker ANP [address] [place] [address] PCP - General Family Medicine 11/20/21 08/04/23 Neptali Palomo DMD [address] [place] [address] Dentist 05/18/24 documented as of this encounter
--- OUTSIDE RECORDS SUMMARY | 2024-08-02 08:39 | XMS_ITS | Encounter Summary ---
Author Organization [employer] Address [address] [facility] 7t [place] [address] Care Team Providers Care Venetian Blind Tape Cutter Name Role Phone Neptali Palomo DMD Unavailable [phone] Reason for Visit * Reason Comments Med Refill Encounter Details Date Type Department Care Team (Late st Contact Info) Description 11/04/2023 Refill [facility] [address] [place], [place] [phone] Payal Walker, ANP [address] [place], [place] [phone] Type 2 diabetes mellitus with hyperlipidemia ([facility]/HCC) ([facility]) Social History Tobacco [...] 9:00 AM EDT Office Visit [facility] ADULT DENTAL [address] [place] [address] Neptali Palomo DMD [address] [place] [address] documented as of this encounter Visit Diagnoses Diagnosis Type 2 diabetes mellitus with hyperlipidemia (CMS/HCC) (CMS/HCC) documented in this encounter Additional Health Concerns Assessment Noted Time PHQ-9 Depression Total Score: 0 08/05/19 23 2:13 PM EDT documented as of this encounter Care Teams Venetian Blind Tape Cutter Relationship Specialty Start Date End Date Neptali Palomo DMD [address] [place] [address] Dentist 05/18/24 documented as of this encounter
--- OUTSIDE RECORDS SUMMARY | 2024-08-02 08:39 | XMS_ITS | Encounter Summary ---
Author Organization [employer] Address [address] [facility] 7t [place] [address] Care Team Providers Care Dot Compliance Manager Name Role Phone Neptali Palomo DMD Unavailable [phone] Reason for Visit * Reason Comments Med Refill Encounter Details Date Type Department Care Team (Late st Contact Info) Description 12/09/2023 Refill [facility] MED[facility] [address] [place], [place] [phone] Payal Walker, ANP [address] [place], [place] [phone] Type 2 diabetes mellitus with hyperlipidemia (CMS/HCC) ([facility]); Primary hypertension Social History Tobacco [...] Description 08/18/2024 9:00 AM EDT Office Visit [facility]ULT [facility] [address] [place] [address] Neptali Palomo DMD [address] [place] [address] documented as of this encounter Visit Diagnoses Diagnosis Type 2 diabetes mellitus with hyperlipidemia (CMS/HCC) (CMS/HCC) Primary hypertension Unspecified essential hypertension documented in this encounter Additional Health Concerns Assessment Noted Time PHQ-9 Depression Total Score: 0 08/05/19 2:13 PM EDT documented as of this encounter Care Teams Dot Compliance Manager Relationship Specialty Start Date End Date Neptali Palomo DMD [address] [place] [address] Dentist 05/18/24 documented as of this encounter
--- OUTSIDE RECORDS SUMMARY | 2024-08-02 08:39 | XMS_ITS | Encounter Summary ---
Author Organization [employer] Address [address] [facility] 7t [place] [address] Care Team Providers Care Social Media Analyst Name Role Phone Neptali Palomo DMD Unavailable [phone] Reason for Visit * Reason Comments Med Refill Encounter Details Date Type Department Care Team (Late st Contact Info) Description 04/14/2024 Refill [facility] MEDICINE [address] [place], [place] [phone] Payal Walker, ANP [address] [place], [place] [phone] Type 2 diabetes mellitus with hyperlipidemia ([facility]/HCC) ([facility]) Social History Tobacco Use Types Packs/Day [...] Description 08/18/2024 9:00 AM EDT Office Visit [facility] ADULT DENTAL [address] [place] [address] Neptali Palomo DMD [address] [place] [address] documented as of this encounter Visit Diagnoses Diagnosis Type 2 diabetes mellitus with hyperlipidemia (CMS/HCC) (CMS/HCC) documented in this encounter Additional Health Concerns Assessment Noted Time PHQ-9 Depression Total Score: 0 08/05/19 23 2:13 PM EDT documented as of this encounter Care Teams Social Media Analyst Relationship Specialty Start Date End Date Neptali Palomo DMD [address] [place] [address] Dentist 05/18/24 documented as of this encounter
--- OUTSIDE RECORDS SUMMARY | 2024-08-02 08:39 | XMS_ITS | Clinical Summary ---
Author Organization [employer] Address 75 [facility] 7t [place] [address] Care Team Providers Care Musical Therapist Name Role Phone Neptali Palomo DMD Unavailable [phone] Allergies Active Allergy Reactions Criticality Noted [...] 2 diabetes mellitus with hyperlipidemia (CMS/HCC) (CMS/[facility]ER[facility]) Use 1 by To Skin route once daily 100 each 3 05/14/19 23 Active Blood Glucose Monitoring Suppl (FreeStyle Lite) w/Device kitIndications:Typ e 2 diabetes mellitus without complication, unspecified whether watermelon harvesting supervisor insulin use (CMS/[facility]ERLY [facility]) 1 each before breakfast, before lunch, and before evening meal. 1 kit 07/11/19 23 Active Continuous Blood Gluc Erection Shop Supervisor (FreeStyle Agatha 2 Tilly) deviceIndications: Type 2 diabetes mellitus with hyperlipidemia (CMS/HCC) (CMS/HCC) 1 each 5 (five) times a day. 1 each 07/28/19 23 Active Continuous Blood Gluc Sensor (FreeStyle Agatha 2 Sensor) miscIndications:Ty pe 2 diabetes mellitus with hyperlipidemia (CMS/HCC) ([facility]/FORMERLY [facility]) 1 each every 14 (fourteen) days. 6 [...] fasting and chem -referred to neurologist at [place] x stroke f up and to f CT ,MRI findings --unsure if actual aneurysm in CTA? 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 Pituitary microadenoma 08/17/2022 Assessment & Plan [...] penis 09/24/2015 Overview (04/16/2022): [facility] Elevated liver function tests 12/25/2014 Overview (04/16/2022): Liver U/S 05/13/16, borderline ehcogenic. Mild nodularity increases suspicion for cirrhosis Encounters Date Type Department Care Team Description 05/18/2024 10:00 AM EST Office Visit [facility] ADULT DENTAL [address] [place] [address] Neptali Palomo, DMD Defective dental samaritan (Primary Dx) from Last 3 Months Immunizations [...] Description 08/18/2024 9:00 AM EDT Office Visit [facility]ULT [facility] [address] [place] [address] Neptali Palomo, DMD [address] [place] [address] Health Maintenance Due Date Last Done Comments [...] Routine 05/18/2024 10:00 AM EST Defective dental samaritan 11 F(V) RESIN-BASED COMPOSITE - 1 SURF, ANTERIOR Routine 05/18/2024 10:00 AM EST Defective dental samaritan 10 MFF(V)L RESIN-BASED COMPOSITE - 3 SURF, ANTERIOR Routine 05/18/2024 10:00 AM EST Defective dental samaritan PROPHYLAXIS - ADULT Routine 12/01/2023 2 :00 [...] 9:03 AM EDT) Creatinine, Urine 89.78 mg/dL [facility] Microalbumin Urine 59.0 mg/L [facility] Microalbum Creatinine Ratio Ur 65.7 ug/mg cr [facility] Comment:Albumin/Creatinine R atio Reference Ranges: Normal: < 30 ug/mg creatinine Microalbuminuria: 30 - 300 ug/mg creatinineClinical Albuminuria: > 300 ug/mg creatinine 08/19/2022 9:03 AM EDT 08/19/2022 11:06 AM EDT [facility] External Provider LAB URI NE ORDERABLES Final Result Performing Organization Address [facility] Co de Phone Number [facility] [address] [place] [address] [phone] * Hemoglobin A1c (08/19/2022 9:03 AM EDT) Hemoglobin A1c 7.3 % [facility] Comment:Hemoglobin A1C Refer ence Range [...] asaverage glucose, using the formula of the B9R-MfklijdQvusbdg Glucose study (ADAG), Diabetes Care, Vol.31,#8,Oct. 2007 08/19/2022 9:03 AM EDT 08/19/2022 11:12 AM EDT [facility] External Provider LAB BLO OD ORDERABLES Final Result Performing Organization Address [facility] Co tx Phone Number [facility] [address] [place] [phone] * Lipid Panel, Standard (08/19/2022 9:03 AM EDT) Triglycerides 91 mg/dL [facility] Comment:Desirable Triglyceri de: less [...] to 190 mg/dL HDL Cholesterol 39 mg/dL [facility] Comment:Desirable HDL: great er than 40 mg/dL Note: This HDL assay may give artificially low results in patients with liver disease. 08/19/2022 9:03 AM EDT 08/19/2022 11:12 AM EDT [facility] External Provider LAB BLO OD ORDERABLES Final Result [facility] [address] [place] [address] [phone] * HEPATITIS C AB W/REFL TO HCV RNA, QN, PCR (07/16/2020 9:56 AM EDT) HEPATITIS C ANTIBODY NON-REACT DEN NON-REACT DEN [facility] INDEX 0.02 <1.00 [facility] Comment: ?? HCV antibody was non-reactive. There is no laboratory ?? evidence of HCV infection. ?? In most cases, no further action is required. However, if recent HCV exposure is suspected, a test for HCV RNA (test code 61409) is suggested. ?? For additional information please refer to http://education.[employer]/faq/DQJ54l8 (This link is being provided for informational/ educational purposes only.) ?? 07/16/2020 9:56 AM EDT Davida Webb VARNISH MAKER HISTORICAL/NON ORDERABLE LABS Final Result [facility] [address] [place] [address], * Hm Colonoscopy (05/01/2016) Colonoscopy Normal Normal Narrative Mary Kate Emmanuel - 05/01/2016 Repeat in 10 years us Historical Provider HEALTH MAINTENANCE Final Result from Last 3 Months or Most Recently Relevant to Health Maintenance Insurance [facility] [place] [id number] DENTAL-[facility] [place] [id number] [place] [id number] [place] [id number] Care Teams Musical Therapist Relationship Specialty Start Date End Date Neptali Palomo DMD [address] [place] [address] [place] GOMEZ [address] Dentist 05/18/24
--- OUTSIDE RECORDS SUMMARY | 2024-08-02 08:39 | XMS_ITS | Encounter Summary ---
Author Organization [employer] Address 75 [facility] 7t [place] [address] Care Team Providers Care Community Associate Name Role Phone Neptali Palomo DMD Unavailable [phone] Reason for Visit * Reason Comments Med Refill Encounter Details Date Type Department Care Team (Late st Contact Info) Description 01/28/2024 Refill [facility] MED[facility] [address] [place], [place] [phone] Payal Walker, ANP [address] [place], [place] [phone] Social History Tobacco Use Types Packs/Day Years [...] 9:00 AM EDT Office Visit [facility] ADULT DENTAL [address] [place] [address] Neptali Palomo DMD [address] [place] [address] documented as of this encounter Visit Diagnoses Not on filedocumented in this encounter Additional Health Concerns Assessment Noted Time PHQ-9 Depression Total Score: 0 08/05/19 2:13 PM EDT documented as of this encounter Care Teams Community Associate Relationship Specialty Start Date End Date Neptali Palomo DMD [address] [place] [address] Dentist 05/18/24 documented as of this encounter
--- OUTSIDE RECORDS SUMMARY | 2024-08-02 08:40 | XMS_ITS | Encounter Summary ---
Author Organization [employer] Address 75 [facility] 7t [place] [address] Care Team Providers Care Retanner Name Role Phone Neptali Palomo DMD Unavailable [phone] Reason for Visit * Reason Comments Med Refill Encounter Details Date Type Department Care Team (Late st Contact Info) Description 10/22/2023 Refill [facility] [address] [place], [place] [phone] Payal Walker, ANP [address] [place], [place] [phone] Type 2 diabetes mellitus with hyperlipidemia ([facility]/HCC) ([facility]) Social History Tobacco Use Types [...] 9:00 AM EDT Office Visit [facility] ADULT DENTAL [address] [place] [address] Neptali Palomo DMD [address] [place] [address] documented as of this encounter Visit Diagnoses Diagnosis Type 2 diabetes mellitus with hyperlipidemia (CMS/HCC) (CMS/HCC) documented in this encounter Additional Health Concerns Assessment Noted Time PHQ-9 Depression Total Score: 0 08/05/19 23 2:13 PM EDT documented as of this encounter Care Teams Retanner Relationship Specialty Start Date End Date Neptali Palomo DMD [address] [place] [address] Dentist 05/18/24 documented as of this encounter
--- OUTSIDE RECORDS SUMMARY | 2024-08-02 08:40 | XMS_ITS | Encounter Summary ---
Author Organization [employer] Address 75 [facility] 7t [place] [address] Care Team Providers Care Course Developer Name Role Phone Neptali Palomo DMD Unavailable [phone] Reason for Visit * Reason Comments Med Refill Encounter Details Date Type Department Care Team (Late st Contact Info) Description 11/01/2023 Refill [facility] [address] [place], [place] [phone] Payal Walker, ANP [address] [place], [place] [phone] Primary hypertension Social History Tobacco Use Types [...] Visit [facility]ULT D[facility] [address] [place] [address] Neptali Palomo DMD [address] [place] [address] documented as of this encounter Visit Diagnoses Diagnosis Primary hypertension Unspecified essential hypertension documented in this encounter Additional Health Concerns Assessment Noted Time PHQ-9 Depression Total Score: 0 08/05/19 23 2:13 PM EDT documented as of this encounter Care Teams Course Developer Relationship Specialty Start Date End Date Neptali Palomo DMD [address] [place] [address] Dentist 05/18/24 documented as of this encounter
--- OUTSIDE RECORDS SUMMARY | 2024-08-02 08:40 | XMS_ITS | Encounter Summary ---
Author Organization [employer] Address [address] [facility] [address] [place] [address] Care Team Providers Care Straddle Bug Driver Name Role Phone Aaron Payal RUANO Primary Care Provider [phone] Neptali Palomo DMD Unavailable [phone] Encounter Details Date Type Department Care Team (Late st Contact Info) Description 02/16/2023 Abstract [facility] MEDICINE [address] [place], [place] [phone] Mary Kate Emmanuel Social History Tobacco Use [...] Description 08/18/2024 9:00 AM EDT Office Visit [facility] ADULT DENTAL [address] [place] [address] Neptali Palomo DMD [address] [place] [address] documented as of this encounter Procedures Procedure [...] documented as of this encounter Care Teams Straddle Bug Driver Relationship Specialty Start Date End Date Payal Walker ANP [address] [place] [phone] PCP - General Family Medicine 11/20/21 08/04/23 Neptali Palomo DMD [address] [place] [address] Dentist 05/18/24 documented as of this encounter
--- OUTSIDE RECORDS SUMMARY | 2024-08-02 08:40 | XMS_ITS | Encounter Summary ---
Author Organization [facility] Address 75 [facility] 7 [place] [address] Care Team Providers Care Medical Assembly Name Role Phone Payal Walker Primary Care Provider [phone] Neptali Palomo DMD Unavailable [phone] Encounter Details Date Type Department Care Team (Latest Contact Info) Description 02/12/2020 Abstract [facility] CONVERSIONS Dental, Provider, DDS Social History Tobacco [...] Upcoming Encounters Date Type Department Care Team ( st Contact Info) Description 08/18/2024 9:00 AM EDT Office Visit [facility] ADULT DENTAL [address] [place], [place] [phone] Neptali Palomo DMD [address] [place], [place] documented as of this encounter Visit Diagnoses Not on filedocumented in this encounter Care Teams Medical Assembly Relationship Specialty Start Date End Date Payal Walker ANP [address] [place] [address] PCP - General Family Medicine 11/20/21 08/04/23 Neptali Palomo DMD [address] [place], [place] Dentist 05/18/24 documented as of this encounter
--- OUTSIDE RECORDS SUMMARY | 2024-08-02 08:40 | XMS_ITS | Encounter Summary ---
Author Organization [employer] [facility] Address 75 [facility] 7 [place] [address] Care Team Providers Care Swimming Pool Service Technician Name Role Phone Payal Walker Primary Care Provider [phone] Neptali Palomo DMD Unavailable [phone] Encounter Details Date Type Department Care Team (Latest Contact Info) Description 10/03/2018 Abstract [facility] CONVERSIONS Dental, Provider, DDS Social [...] Description 08/18/2024 9:00 AM EDT Office Visit [facility] ADULT DENTAL [address] [place], [place] [phone] Neptali Palomo DMD [address] [place], [place] documented as of this encounter Visit Diagnoses Not on filedocumented in this encounter Care Teams Swimming Pool Service Technician Relationship Specialty Start Date End Date Payal Walker ANP [address] [place] [address] PCP - General Family Medicine 11/20/21 08/04/23 Neptali Palomo DMD [address] [place], [place] Dentist 05/18/24 documented as of this encounter
--- NOTE | 2024-08-02 09:02 | A.OFFVIS_ITS ---
VS Expanded 08/02/24 09:26 Height 5 ft 8 in Weight 184 lb 2.434 oz BMI 28.0 Intake Visit Reasons: T2DM Allergies codeine [CODEINE] Allergy (Intermediate, Verified 07/21/24 11:33) TACHYCARDIA Nutrition Presentation Details: Pt presents for MNT f/u T2DM Pt reports increased appetite for sweets at night time , revealed by blood glucose download with BG > 180 after 8 pm (all through the night) leading to elevated fasting BG Night snack: > 60 g (sugary cereals/having a large breakfast, light lunch and then larger portion sizes at dinner and increased portion of food after 8 pm BS Monitoring Most Recent Diabetes Results: Creatinine 0.91 mg/dL (0.5-1.4) 06/27/24 Blood Urea Nitrogen 21 mg/dL (9-16) H 06/27/24 Sodium 142 mmol/L (135-145) 06/27/24 Potassium 3.9 mmol/L (3.3-5.1) 06/27/24 Chloride 107 mmol/L (96-108) 06/27/24 Carbon Dioxide 27 mmol/L (22-29) 06/27/24 Calcium 9.3 mg/dL (8.4-10.2) 06/27/24 [facility] Medical History Palpitations Pancreatitis Arthritis GERD (gastroesophageal reflux disease) CVA (cerebral vascular accident) Microalbuminuric diabetic nephropathy 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 Erectile dysfunction Vitamin D deficiency Multinodular thyroid Other and unspecified hyperlipidemia Essential hypertension Aortic valve calcification Surgical History History of esophagogastroduodenoscopy (EGD) H/O colonoscopy Family History Father Stroke Brother Stroke Mother Diabetes Social History Household Members: Spouse Housing: House Alcohol intake: never Patient Tobacco Use Status: Former Tobacco user e-Cigarette/Vaping Use: Never Used service: No Current occupational status: disabled Cognitive needs: No Hearing needs: No Vision needs: Yes Assessment & Plan Assessment & Plan (1) Type II diabetes with fdc use of insulin: Code(s): E11.9 - Type 2 diabetes mellitus without complications; Z79.4 - terminal clerk (current) use of insulin Category: Medical Qualifiers: Diabetes mellitus complication status: with kidney complications Diabetes mellitus complication detail: with nephropathy Qualified Code(s): E11.21 - Type 2 diabetes mellitus with diabetic nephropathy; Z79.4 - assisted (current) use of insulin Plan: Wt: 76 Kg ( 02/19 ), 78 kg(04/22), 83kg (07/21), 08/20 Est kcal needs as per MSJ: 2200 (40% carb, 30% protein/fat) Est fluid needs as per 25-30 ml/d: 2300 Est prot per day as per 1 g/kg bw: 76 Recommend fiber intake : 8-10 g per day and gradually increase to 25-28 g per day for women and 35-38 g for men or as tolerated Recommend sodium intake per day : less than 2300 mg Educated patient on: ( R = reviewed V = verbalizes understanding N/R = needs review N/A = not applicable * Food sources of carbohydrate, adequate serving sizes and its role in various health conditions: R v * Pt to become familiar with total carbohydrate in a meal - start with dinner : R, V * Choosing nutrient dense and low sugar/carb options: comparing cereals /crackers and other foods , practiced reading labels and choosing lower carb options as bedtime snack : R, V * Differences between complex carbohydrates a simple carbohydrates, role of fiber in diet: R * Lean protein sources of foods: R * Differences between types of fats and role in diet (mono on saturated fat fatty acids, saturated fatty acids, trans fats): R * Food sources of sodium in salt and healthy modifications for heart health in kidney health: R * Vitamins and minerals: R in foods * Healthy plate method concept: R * Physical activity: Benefits a precaution: R V * Hypoglycemia protocol (rule of 15): R , prevention * Dietary prevention of Hyperglycemia: R Patient Instructions: Work on reducing total carbohydrate at night time , reduce total carb at bedtime to less than 45 g (from more than 60 g) Choose lower sugar cereals see list choose yogurt with fruit compare portion and total carb Keep hydrated by choosing water , low sugar beverages Coding Level of Care Code Nutr Indiv Subseq (32978) Diagnoses Type 2 diabetes mellitus with diabetic nephropathy, with long-term current use of insulin E11.21; Z79.4 Diabetes mellitus complication status: with kidney complications Diabetes mellitus complication detail: with nephropathy Time Spent (min) 25
[2024-08-02 09:26] VITALS: BMI 28.0
== END 2024-08-02 09:48 | disposition home or self-care (01) ==
LOC: HO.ENCR 08:27
PROVIDERS: PCP Nurse Practitioner Family; Visit Provider Dietitian, Registered
DX: E11.21 Type 2 diabetes mellitus with diabetic nephropathy (principal); Z79.4 Long term (current) use of insulin

== ENCOUNTER → 2024-08-02 08:27 | Outpatient (BNVA) | payer MEDICARE, MEDICAID, SELFPAY | PROVIDERS: PCP Nurse Practitioner Family; Visit Provider Dietitian, Registered | DX: K86.2 Cyst of pancreas (principal); K86.3 Pseudocyst of pancreas; I82.891 Chronic embolism and thrombosis of other specified veins; E11.21 Type 2 diabetes mellitus with diabetic nephropathy; Z79.4 Long term (current) use of insulin | CPT/HCPCS: 97803; 99212 ==

== ENCOUNTER → 2024-08-02 10:23 | Outpatient (AMB) | payer MEDICARE, MEDICAID, SELFPAY ==
[2024-08-02 10:30] VITALS: BP 154/89; PULSE 69; BMI 28.0
--- NOTE | 2024-08-02 10:30 | A.OFFVIS_ITS ---
Vital Signs 08/02/24 10:30 Height 5 ft 8 in Weight 184 lb BMI 28.0 BP 154/89 H Blood Pressure Location Lt brachial Position Sitting Pulse 69 Intake Visit Reasons: abnormal MRI Intake Note: Kate presents in the office as a follow up for an abnormal MRI. CC: Here for results of the MRI. Loom Checker Required: No Allergies codeine [CODEINE] Allergy (Intermediate, Verified 07/21/24 11:33) TACHYCARDIA HPI Comments Details: This is a 61y.o M with PMH of HTN, HLD, GERD who is here after ER visit x 2 for abdominal pain. History was obtained from the pt with the help of a general expeditor. Main complaint is burning abd pain after he eats that started almost 2 weeks ago. No N/V/D. No fevers or chills. No changes in appetite or bowel habits. Takes ibuprofen for this. Does not smoke or etOH. Work up in ER included a CT abd/pelvis that showed some non-specific wall thickening in the small bowel. Labs grossly normal. Was given Omeprazole 40 and sucrafate 1g TID which have helped the sx. Of note, pt has hx of SSL in 2017 (Dr Marie, [facility]). Repeat recommended in 5y, however pt was in [place] when he got the call to schedule the procedure and then did not call back to reschedule. 11/15/23: Procedure had to be canceled last year as pt got admitted for stroke. Now doing well. Here to rebook this procedure. Otherwise, no complaints. No abd pain, N,V,D. Previously had requested suprep but now requests a different prep. 03/16/24: 1. Normal colon mucosa 2. Total of 1 polyp removed 3. Diverticulosis 4. Internal hemorrhoids Path: Colon, transverse, polypectomy: Hyperplastic mucosal polyp. 04/05/24: No GI concerns at the moment. Wishes to review results in person, as letter had already been sent previously. Reassured that benign polyp. In terms of heartburn/gerd, this is well controlled on omeprazole 40 which he has been taking for almost 6 months now. 08/02/24: Here for follow up after MRI imaging. Had 6 cm cystic mass seen on CT abd/pel 01/2024. This was in the context of acute pancreatitis in Dec 2023 - was in [facility]. Panc was thought to be 2/2 GLP-1 use. Pt does not report recent hx of etOH use. Reports had a remote hx of pancreatitis in his 20s. Follow up imaging since Jan 2024 have shown interval decrease in the size of this likely WOPN to 2.8 cm on most recent MRI. Of note pt also noted to have chronic PV thrombosis with collaterals. Pt himself only reports intermittent R sided pain. Not assoc with food. SOmetimes with bloating an increased flatulence. No change in BMs, has 1 regular BM per day without straining. 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 Erectile dysfunction Vitamin D deficiency Multinodular thyroid Other and unspecified hyperlipidemia Essential hypertension Aortic valve calcification Surgical History History of esophagogastroduodenoscopy (EGD) H/O colonoscopy Family History Father Stroke Brother Stroke Mother Diabetes Social History Household Members: Spouse Housing: House Alcohol intake: never Patient Tobacco Use Status: Former Tobacco user e-Cigarette/Vaping Use: Never Used service: No Current occupational status: disabled Cognitive needs: No Hearing needs: No Vision needs: Yes Physical Exam Vital Signs: Last Vital Signs Pulse 69 08/02/24 10:30 BP 154/89 H 08/02/24 10:30 BMI result Body Mass Index 28.0 No apparent distress Nonicteric Abdomen soft, nondistended Alert and oriented x3, normal gait Assessment & Plan Assessment & Plan (1) Pancreatic pseudocyst/cyst: Code(s): K86.2 - Cyst of pancreas; K86.3 - Pseudocyst of pancreas Category: Medical (2) Chronic thrombosis of splenic vein: Code(s): I82.891 - Chronic embolism and thrombosis of other specified veins Category: Medical Plan 1. Panc cyst Likely had WOPN after AIP episode in dec 2023. This is decreasing in size. Etiology of pancreatitis was deemed to be 2/2 GLP 1 use. However given dilated PD, would recommend another MRI in 6 months once WOPN completely resolved to r/o mucinous cyst/neoplasm. Plan: - MRI abd with and without contrast in 6 months. 2. PV thrombosis Likely provoked 2/2 AIP in Dec 2023. Has collaterals noted on imaging. Plan: - EGD to r.o esophageal and gastric varices - Hold off AC as this is chronic clot with collaterals and no propagation noted on serial imaging. follow up 6 months Orders: Orders MR abdomen wo/w con 6 Months K86.2 - Cyst of pancreas, K86.3 - Pseudocyst of pancreas Coding Level of Care Code Est Pt Level 4 (66719) Diagnoses Pancreatic pseudocyst/cyst K86.2; K86.3 Chronic thrombosis of splenic vein I82.891
--- OUTSIDE RECORDS SUMMARY | 2024-08-02 11:45 | XMS_ITS | Encounter Summary ---
Author Organization [employer] Address 75 [facility] 7t [place] [address] Care Team Providers Care Oracle Hrms Developer Name Role Phone Neptali Palomo DMD Unavailable [phone] Reason for Visit * Reason Comments Med Refill Encounter Details Date Type Department Care Team (Late st Contact Info) Description 10/22/2023 Refill [facility] MED[facility] [address] [place], [place] [phone] Payal Walker, ANP [address] [place], [place] [phone] Type 2 diabetes mellitus with hyperlipidemia ([facility]/HCC) ([facility]) Social History Tobacco Use Types Packs/Day Years [...] 9:00 AM EDT Office Visit [facility] ADULT DENTAL [address] [place] [address] Neptali Palomo DMD [address] [place] [address] documented as of this encounter Visit Diagnoses Diagnosis Type 2 diabetes mellitus with hyperlipidemia (CMS/HCC) (CMS/HCC) documented in this encounter Additional Health Concerns Assessment Noted Time PHQ-9 Depression Total Score: 0 08/05/19 23 2:13 PM EDT documented as of this encounter Care Teams Oracle Hrms Developer Relationship Specialty Start Date End Date Neptali Palomo DMD [address] [place] [address] Dentist 05/18/24 documented as of this encounter
--- OUTSIDE RECORDS SUMMARY | 2024-08-02 11:45 | XMS_ITS | Encounter Summary ---
Author Organization [employer] Address [address] 7t [place] [address] Care Team Providers Care Oil Field Operator Name Role Phone Aaron Payal RUANO Primary Care Provider [phone] Neptali Palomo DMD Unavailable [phone] Encounter Details Date Type Department Care Team (Late st Contact Info) Description 02/16/2023 Abstract [facility] MEDICINE [address] [place], [place] [phone] Mary Kate Emmanuel Social History Tobacco Use [...] [facility] AD[facility] [address] [place] [address] Neptali Palomo DMD [address] [place] [address] documented as of this encounter Procedures Procedure [...] documented as of this encounter Care Teams Oil Field Operator Relationship Specialty Start Date End Date Payal Walker ANP [address] [place] [address] PCP - General Family Medicine 11/20/21 08/04/23 Neptali Palomo DMD [address] [place] [address] Dentist 05/18/24 documented as of this encounter
--- OUTSIDE RECORDS SUMMARY | 2024-08-02 11:45 | XMS_ITS | Clinical Summary ---
Author Organization [email or web address] Address [address] 7t [place] [address] Care Team Providers Care Gravel Hauler Name Role Phone Neptali Palomo DMD Unavailable [phone] Allergies Active Allergy Reactions Criticality Noted [...] 2 diabetes mellitus without complication, unspecified whether ferry terminal agent insulin use (CMS/[facility]) 1 each before breakfast, before lunch, and before evening meal. 1 kit 07/11/19 23 Active Continuous Blood Gluc Welder Machine Operator (FreeStyle Agatha 2 [place]) deviceIndications: Type 2 diabetes mellitus with hyperlipidemia (CMS/HCC) (CMS/HCC) 1 each 5 (five) times a day. 1 each 07/28/19 23 Active Continuous Blood Gluc Sensor (FreeStyle Agatha 2 Sensor) miscIndications:Ty pe 2 diabetes mellitus with hyperlipidemia (CMS/HCC) ([facility]) 1 each every 14 [...] fasting and chem -referred to neurologist at [place] x stroke f up and to f [...] penis 09/24/2015 Overview (04/16/2022): [facility] Elevated liver function tests 12/25/2014 Overview (04/16/2022): Liver U/S 05/13/16, borderline ehcogenic. 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 Immunizations [...] Visit [facility] [address] [place] [address] Neptali Palomo, DMD 505 [place] [address] Health Maintenance Due Date Last Done Comments [...] Routine 05/18/2024 10:00 AM EST Defective dental judaism 11 F(V) RESIN-BASED COMPOSITE - 1 SURF, ANTERIOR Routine 05/18/2024 10:00 AM EST Defective dental judaism 10 MFF(V)L RESIN-BASED COMPOSITE - 3 SURF, ANTERIOR Routine 05/18/2024 10:00 AM EST Defective dental judaism PROPHYLAXIS - ADULT Routine 12/01/2023 2 :00 [...] 9:03 AM EDT) Creatinine, Urine 89.78 mg/dL [facility] Microalbumin Urine 59.0 mg/L [facility] Microalbum Creatinine Ratio Ur 65.7 ug/mg cr [facility] Comment:Albumin/Creatinine R atio Reference Ranges: Normal: < 30 ug/mg creatinine Microalbuminuria: 30 - 300 ug/mg creatinineClinical Albuminuria: > 300 ug/mg creatinine 08/19/2022 9:03 AM EDT 08/19/2022 11:06 AM EDT [facility] External Provider LAB URI NE ORDERABLES Final Result Performing Organization Address [facility] Co de Phone Number [facility] [address] [place] [address] [phone] * Hemoglobin A1c (08/19/2022 9:03 AM EDT) Hemoglobin A1c 7.3 % [facility] Comment:Hemoglobin A1C Refer ence Range Adults: 4.8 - 6.0 % Non diabetic: < 6.0 % Goal: < 7.0 %Additional Action Suggested: > 8.0 %Note: Hemoglobin A1c results are invalid for patients with abnormal amounts of HbF. Blood transfusions may impact the HbA1c concentration in the patient sample. Estimated Average Glucose 163 mg/dL [facility] Comment:eAG = Estimated ave rage glucose which is %A1C expressed asaverage glucose, using the formula of the D2V-OdqhcqeMxmsjoi Glucose study (ADAG), Diabetes Care, Vol.31,#8,Oct. 2007 08/19/2022 9:03 AM EDT 08/19/2022 11:12 AM EDT [facility] External Provider LAB BLO OD ORDERABLES Final Result Performing Organization Address [facility] Co wy Phone Number [facility] [address] [place] [phone] * Lipid Panel, Standard (08/19/2022 9:03 AM EDT) Triglycerides 91 mg/dL [facility] Comment:Desirable Triglyceri de: less than 150 mg/dLBorderline High Triglyceride 150-199 mg/dLHigh Triglyceride: 200-499 mg/dLVery High Triglyceride: greater than or equal to 5OO mg/dL Cholesterol 186 mg/dL [facility] Comment:Desirable Cholestero l: less than 200 mg/dLBorderline High Cholesterol: 200-239 mg/dLHigh Cholesterol: greater than 239 mg/dL LDL Cholesterol Calculated 129 mg/dl [facility] Comment:Desirable LDL: less than [...] 9:03 AM EDT 08/19/2022 11:12 AM EDT [facility] External Provider LAB BLO OD ORDERABLES Final Result [facility] [address] [place] [address] [phone] * HEPATITIS C AB W/REFL TO HCV RNA, QN, PCR (07/16/2020 9:56 AM EDT) HEPATITIS C ANTIBODY NON-REACT DEN NON-REACT DEN [facility] INDEX 0.02 <1.00 [facility] Comment: ?? HCV antibody was non-reactive. There is no laboratory ?? evidence of HCV infection. ?? In most cases, no further action is required. However, if recent HCV exposure is suspected, a test for HCV RNA (test code 36478) is suggested. ?? For additional information please refer to http://education.Setgo/faq/LKD10h8 (This link is being provided for informational/ educational purposes only.) ?? 07/16/2020 9:56 AM EDT Davida Webb PRISON OFFICER HISTORICAL/NON ORDERABLE LABS Final Result [facility] [address] [place] [address], * Hm Colonoscopy (05/01/2016) Colonoscopy Normal Normal Narrative Mary Kate Emmanuel - 05/01/2016 Repeat in 10 years us Historical Provider HEALTH MAINTENANCE Final Result from Last 3 Months or Most Recently Relevant to Health Maintenance Insurance [facility] [place] [address] DENTAL-[facility] [place] [id number] [place] [id number] [place] [address] Care Teams Gravel Hauler Relationship Specialty Start Date End Date Neptali Palomo DMD [address] [place] [address] LUIS GOMEZ [address] Dentist 05/18/24
--- OUTSIDE RECORDS SUMMARY | 2024-08-02 11:45 | XMS_ITS | Encounter Summary ---
Author Organization [id number] Address [address] [facility] 7t [place] [address] Care Team Providers Care Photogrammetric Technician Name Role Phone Neptali Palomo DMD Unavailable [phone] Reason for Visit * Reason Comments Med Refill Encounter Details Date Type Department Care Team (Late st Contact Info) Description 11/04/2023 Refill [facility] MEDICINE [address] [place], [place] [phone] Payal Walker, ANP [address] [place], [place] [phone] Type 2 diabetes mellitus with hyperlipidemia ([facility]/HCC) ([facility]) Social History Tobacco Use [...] Description 08/18/2024 9:00 AM EDT Office Visit [facility] ADULT DENTAL [address] [place] [address] Neptali Palomo DMD [address] [place] [address] documented as of this encounter Visit Diagnoses Diagnosis Type 2 diabetes mellitus with hyperlipidemia (CMS/HCC) (CMS/HCC) documented in this encounter Additional Health Concerns Assessment Noted Time PHQ-9 Depression Total Score: 0 08/05/19 23 2:13 PM EDT documented as of this encounter Care Teams Photogrammetric Technician Relationship Specialty Start Date End Date Neptali Palomo DMD [address] [place] [address] Dentist 05/18/24 documented as of this encounter
--- OUTSIDE RECORDS SUMMARY | 2024-08-02 11:45 | XMS_ITS | Encounter Summary ---
Author Organization [employer] Address [address] [facility] 7t [place] [address] Care Team Providers Care Used Equipment Sales Representative Name Role Phone Neptali Palomo DMD Unavailable [phone] Reason for Visit * Reason Comments Med Refill Encounter Details Date Type Department Care Team (Late st Contact Info) Description 01/28/2024 Refill [facility] MEDICINE [address] [place], [place] [phone] Payal Walker, ANP [address] [place], [place] [phone] Social History Tobacco Use Types Packs/Day Years [...] Description 08/18/2024 9:00 AM EDT Office Visit [facility] ADULT DENTAL 505 [place] [address] Neptali Palomo DMD 505 [place] [address] documented as of this encounter Visit Diagnoses Not on filedocumented in this encounter Additional Health Concerns Assessment Noted Time PHQ-9 Depression Total Score: 0 08/05/19 2:13 PM EDT documented as of this encounter Care Teams Used Equipment Sales Representative Relationship Specialty Start Date End Date Neptali Palomo DMD 505 [place] [address] Dentist 05/18/24 documented as of this encounter
--- OUTSIDE RECORDS SUMMARY | 2024-08-02 11:45 | XMS_ITS | Encounter Summary ---
Author Organization [employer] Address [address] [place] [address] 7 [place] [address] Care Team Providers Care Secured Entrance Monitor Name Role Phone Aaron Payal RUANO Primary Care Provider [phone] Neptali Palomo DMD Unavailable [phone] Reason for Visit * Reason Comments Med Refill Encounter Details Date Type Department Care Team (Late st Contact Info) Description 10/20/[address] [facility] MEDICINE [address] [place], [place] [phone] [facility] [address] [place] [address] Social History Tobacco Use Types Packs/Day Years [...] Description 08/18/2024 9:00 AM EDT Office Visit [facility] ADULT DENTAL 505 [place], [place] [phone] Neptali Palomo, DMD [address] [place], [place] [phone] documented as of this encounter Visit Diagnoses Not on filedocumented in this encounter Additional Health Concerns Assessment Noted Time PHQ-9 Depression Total Score: 0 08/05/19 23 2:13 PM EDT documented as of this encounter Care Teams Secured Entrance Monitor Relationship Specialty Start Date End Date Payal Walker ANP [address] [place] [address] PCP - General Family Medicine 11/20/21 08/04/23 Neptali Palomo DMD [address] [place] [address] Dentist 05/18/24 documented as of this encounter
--- OUTSIDE RECORDS SUMMARY | 2024-08-02 11:45 | XMS_ITS | Encounter Summary ---
Author Organization [employer] Address [address] [facility] 7t [place] [address] Care Team Providers Care Family Law Legal Assistant Name Role Phone Neptali Palomo DMD Unavailable [phone] Reason for Visit * Reason Comments Med Refill Encounter Details Date Type Department Care Team (Late st Contact Info) Description 12/09/2023 Refill [facility] MEDICINE [address] [place], [place] [phone] Payal Walker, ANP [address] [place], [place] [phone] Type 2 diabetes mellitus with hyperlipidemia (CMS/HCC) ([facility]); Primary hypertension Social History Tobacco [...] Description 08/18/2024 9:00 AM EDT Office Visit [facility] ADULT DENTAL [address] [place] [address] Neptali Palomo DMD [address] [place] [address] documented as of this encounter Visit Diagnoses Diagnosis Type 2 diabetes mellitus with hyperlipidemia (CMS/HCC) (CMS/HCC) Primary hypertension Unspecified essential hypertension documented in this encounter Additional Health Concerns Assessment Noted Time PHQ-9 Depression Total Score: 0 08/05/19 2:13 PM EDT documented as of this encounter Care Teams Family Law Legal Assistant Relationship Specialty Start Date End Date Neptali Palomo DMD [address] [place] [address] Dentist 05/18/24 documented as of this encounter
--- OUTSIDE RECORDS SUMMARY | 2024-08-02 11:45 | XMS_ITS | Encounter Summary ---
Author Organization [employer] [facility] Address [address] [facility] 7 [place] [address] Care Team Providers Care Animal Pathology Teacher Name Role Phone Payal Walker Primary Care Provider [phone] Neptali Palomo DMD Unavailable [phone] Encounter Details Date Type Department Care Team (Latest Contact Info) Description 02/12/2020 Abstract [facility] CONVERSIONS Dental, Provider, DDS Social History [...] Description 08/18/2024 9:00 AM EDT Office Visit [facility] ADULT DENTAL [address] [place], [place] [phone] Neptali Palomo DMD [address] [place], [place] documented as of this encounter Visit Diagnoses Not on filedocumented in this encounter Care Teams Animal Pathology Teacher Relationship Specialty Start Date End Date Payal Walker ANP [address] [place] [address] PCP - General Family Medicine 11/20/21 08/04/23 Neptali Palomo DMD [address] [place], [place] Dentist 05/18/24 documented as of this encounter
--- OUTSIDE RECORDS SUMMARY | 2024-08-02 11:45 | XMS_ITS | Encounter Summary ---
Author Organization [employer] Address [address] [facility] 7t [place] [address] Care Team Providers Care Switchboard Wirer Name Role Phone Neptali Palomo DMD Unavailable [phone] Reason for Visit * Reason Comments Med Refill Encounter Details Date Type Department Care Team (Late st Contact Info) Description 04/14/2024 Refill [facility] MEDICINE [address] [place], [place] [phone] Payal Walker, ANP [address] [place], [place] [phone] Type 2 diabetes mellitus with hyperlipidemia ([facility]/HCC) ([facility]) Social History Tobacco Use [...] Description 08/18/2024 9:00 AM EDT Office Visit [facility] ADULT DENTAL [address] [place] [address] Neptali Palomo DMD [address] [place] [address] documented as of this encounter Visit Diagnoses Diagnosis Type 2 diabetes mellitus with hyperlipidemia (CMS/HCC) (CMS/HCC) documented in this encounter Additional Health Concerns Assessment Noted Time PHQ-9 Depression Total Score: 0 08/05/19 23 2:13 PM EDT documented as of this encounter Care Teams Switchboard Wirer Relationship Specialty Start Date End Date Neptali Palomo DMD [address] [place] [address] Dentist 05/18/24 documented as of this encounter
--- OUTSIDE RECORDS SUMMARY | 2024-08-02 11:45 | XMS_ITS | Encounter Summary ---
Author Organization [employer] Address [address] [facility] 7t [place] [address] Care Team Providers Care Postal Mail Carrier Name Role Phone Neptali Palomo DMD Unavailable [phone] Reason for Visit * Reason Comments Med Refill Encounter Details Date Type Department Care Team (Late st Contact Info) Description 01/28/2024 Refill [facility] MEDICINE [address] [place], [place] [phone] Payal Walker, ANP [address] [place], [place] [phone] Type 2 diabetes mellitus with hyperlipidemia ([facility]/HCC) ([facility]) Social History Tobacco Use [...] 9:00 AM EDT Office Visit [facility] ADULT DENTAL [address] [place] [address] Neptali Palomo DMD [address] [place] [address] documented as of this encounter Visit Diagnoses Diagnosis Type 2 diabetes mellitus with hyperlipidemia (CMS/HCC) (CMS/HCC) documented in this encounter Additional Health Concerns Assessment Noted Time PHQ-9 Depression Total Score: 0 08/05/19 23 2:13 PM EDT documented as of this encounter Care Teams Postal Mail Carrier Relationship Specialty Start Date End Date Neptali Palomo DMD [address] [place] [address] Dentist 05/18/24 documented as of this encounter
--- OUTSIDE RECORDS SUMMARY | 2024-08-02 11:45 | XMS_ITS | Encounter Summary ---
Author Organization [employer] Address [address] [facility] 7t [place] [address] Care Team Providers Care Log Buncher Name Role Phone Neptali Palomo DMD Unavailable [phone] Reason for Visit * Reason Comments Med Refill Encounter Details Date Type Department Care Team (Late st Contact Info) Description 11/01/2023 Refill [facility] MEDICINE 230 [place], [place] [phone] Payal Walker, ANP [address] [place], [place] [phone] Primary hypertension Social History Tobacco Use Types [...] 08/18/2024 9:00 AM EDT Office [facility]ULT [facility] 505 [place] [address] Neptali Palomo DMD [address] [place] [address] documented as of this encounter Visit Diagnoses Diagnosis Primary hypertension Unspecified essential hypertension documented in this encounter Additional Health Concerns Assessment Noted Time PHQ-9 Depression Total Score: 0 08/05/19 23 2:13 PM EDT documented as of this encounter Care Teams Log Buncher Relationship Specialty Start Date End Date Neptali Palomo DMD [address] [place] [address] Dentist 05/18/24 documented as of this encounter
--- OUTSIDE RECORDS SUMMARY | 2024-08-02 11:45 | XMS_ITS | Encounter Summary ---
Author Organization [facility] Address [address] [facility] 7t [place] [address] Care Team Providers Care Decatizer Name Role Phone Aaron Payal RUANO Primary Care Provider [phone] Neptali Palomo DMD Unavailable [phone] Reason for Visit * Reason Comments Med Refill Encounter Details Date Type Department Care Team ([facility] st Contact Info) Description 06/25/2023 Refill [facility] MEDICINE [address] [place], [place] [phone] Siena Greenwood MD [address] [place], [place] [phone] GERD without esophagitis Social History Tobacco Use [...] [facility] ADULT D[facility] 505 [place] [address] Neptali Palomo DMD [address] [place] [address] documented as of this encounter Visit Diagnoses Diagnosis GERD without esophagitis Esophageal reflux documented in this encounter Additional Health Concerns Assessment Noted Time PHQ-9 Depression Total Score: 0 08/05/19 2:13 PM EDT documented as of this encounter Care Teams Decatizer Relationship Specialty Start Date End Date Payal Walker ANP [address] [place] [address] PCP - General Family Medicine 11/20/21 08/04/23 Neptali Palomo DMD [address] [place] [address] Dentist 05/18/24 documented as of this encounter
--- OUTSIDE RECORDS SUMMARY | 2024-08-02 11:45 | XMS_ITS | Encounter Summary ---
Author Organization [email or web address] [facility] Address [address] [facility] 7 [place] [address] Care Team Providers Care Alarm Installer Name Role Phone Payal Walker Primary Care Provider [phone] Neptali Palomo DMD Unavailable [phone] Encounter Details Date Type Department Care Team (Latest Contact Info) Description 10/03/2018 Abstract [facility] CONVERSIONS Dental, Provider, DDS Social [...] Description 08/18/2024 9:00 AM EDT Office Visit [facility] ADULT DENTAL [address] [place], [place] [phone] Neptali Palomo DMD [address] [place], [place] documented as of this encounter Visit Diagnoses Not on filedocumented in this encounter Care Teams Alarm Installer Relationship Specialty Start Date End Date Payal Walker ANP 230 [place] [address] PCP - General Family Medicine 11/20/21 08/04/23 Neptali Palomo DMD [address] [place], [place] Dentist 05/18/24 documented as of this encounter
== END ==
PROVIDERS: PCP Nurse Practitioner Family; Visit Provider Internal Medicine
DX: K86.2 Cyst of pancreas (principal); K86.3 Pseudocyst of pancreas; I82.891 Chronic embolism and thrombosis of other specified veins
CPT/HCPCS: 99214

== ENCOUNTER 2024-08-08 11:55 | Outpatient (AMB) | payer MEDICARE, MEDICAID, SELFPAY ==
--- NOTE | 2024-08-08 12:21 | MHC.OFFWIV ---
Intake Vital Signs 08/08/24 12:22 Height 5 ft 8 in Weight 184 lb BMI 28.0 BP 140/90 H Blood Pressure Location Rt brachial Position Sitting Pulse 76 Pulse Source Pulse Oximeter Pulse Oximetry (%) 97 Oxygen Delivery Method Room Air Intake Visit Reasons: EP-lt foot issues Patient Tobacco Use Status: Former Tobacco user Allergies codeine [CODEINE] Allergy (Intermediate, Verified 08/08/24 12:22) TACHYCARDIA Medication List - Last Reconciled 08/08/24 by Henrik Licea MD acetone (urine) test (Ketone Urine Test strips) As directed for glucose over 250, nausea vomiting or illness t.i.d. Admelog SoloStar U-100 Insulin (insulin lispro) 80-150 8 units 151-200 10 units 201-300 12 units over 300 14 units subcutaneously 3 times a day; 30 days MDD 42 units NS clonazepam 1 mg PO BEDTIME PRN dapagliflozin propanediol (Farxiga) 5 mg PO QAM 90 days fluoxetine 40 mg PO DAILY gabapentin 600 mg PO BEDTIME glucose (Dex4 Glucose) 16 grams (4 x 4 gram) PO Q15M PRN 30 days MDD 16 tablets hydroxyzine HCl 10 mg PO BEDTIME PRN ibuprofen 600 mg PO Q6H PRN losartan 25 mg PO DAILY 30 days omeprazole 20 mg PO DAILY 90 days pen needle, diabetic As directed pen needle, diabetic for qid NS pioglitazone 15 mg PO DAILY 30 days tadalafil 5 mg PO DAILY 90 days tamsulosin 0.4 mg PO BEDTIME 90 days Tresiba FlexTouch U-200 (insulin degludec) 28 units (0.14 mL) subcut BEDTIME NS Do you need a note to return to daycare/school/sports/work: No HPI EP-lt foot issues HPI Details History - The patient is a 63-year-old male presenting with a plantar wart on the left foot. - The wart was first noticed approximately one week ago. - The patient reports that he applied medication to the affected area, but no improvement was observed. - The wart causes discomfort, especially when walking while wearing shoes. - There is a history of similar lesions which previously resolved with topical treatment but tends to recur, particularly with increased ambulation. - The patient denies any signs of infection or redness in the affected area. Problem List - Plantar wart on the left foot Patient Instructions - Wear open-toed sandals or flip flops to prevent pressure on the toes. - Monitor for any redness or signs of infection and call if these occur. - Await an appointment with a sales and business development manager for further evaluation and possible removal of the wart. Review of Systems - General: No fever no chills - Neurological: No headaches no dizziness - Ear nose throat: No sore throat no hearing difficulty no ear pain - Cardiovascular: No syncope, no chest pain, no palpitations - Gastrointestinal: No nausea vomiting or diarrhea Physical Exam General: No acute distress HEENT: No acute findings Neck: Supple Respiratory system: Able to talk in full sentences, Extremities: Wart noted 5th digit medial aspect and 4th toe of left foot no signs of infection SALESPERSON SHOES: Alert awake oriented x3 motor sensory intact Skin: Normal turgor PFSH Medical History Palpitations Pancreatitis Arthritis GERD (gastroesophageal reflux disease) CVA (cerebral vascular accident) Microalbuminuric diabetic nephropathy Type II diabetes with terminal gauger supervisor use of insulin Erectile dysfunction Vitamin D deficiency Multinodular thyroid Other and unspecified hyperlipidemia Essential hypertension Aortic valve calcification Surgical History History of esophagogastroduodenoscopy (EGD) H/O colonoscopy Family History Father Stroke Brother Stroke Mother Diabetes Social History Household Members: Spouse Housing: House Alcohol intake: never Patient Tobacco Use Status: Former Tobacco user e-Cigarette/Vaping Use: Never Used service: No Current occupational status: disabled Cognitive needs: No Hearing needs: No Vision needs: Yes Physical Exam Vital Signs: Last Vital Signs Pulse 76 08/08/24 12:22 BP 140/90 H 08/08/24 12:22 Pulse Ox 97 08/08/24 12:22 Oxygen Delivery Method Room Air 08/08/24 12:22 BMI result Body Mass Index 28.0 Assessment & Plan Assessment & Plan (1) Plantar wart of left foot: Code(s): B07.0 - Plantar wart Plan History - The patient is a 63-year-old male presenting with a plantar wart on the left foot. - The wart was first noticed approximately one week ago. - The patient reports that he applied medication to the affected area, but no improvement was observed. - The wart causes discomfort, especially when walking while wearing shoes. - There is a history of similar lesions which previously resolved with topical treatment but tends to recur, particularly with increased ambulation. - The patient denies any signs of infection or redness in the affected area. Problem List - Plantar wart on the left foot Patient Instructions - Wear open-toed sandals or flip flops to prevent pressure on the toes. - Monitor for any redness or signs of infection and call if these occur. - Await an appointment with a sales and business development manager for further evaluation and possible removal of the wart. Orders: Referrals Podiatry Referral B07.0 - Plantar wart Coding Level of Care Code Est Pt Level 3 (90399) Diagnoses Plantar wart of left foot B07.0
[2024-08-08 12:22] VITALS: BP 140/90; PULSE 76; O2SAT 97; BMI 28.0
--- OUTSIDE RECORDS SUMMARY | 2024-08-08 13:18 | XMS_ITS | Encounter Summary ---
Author Organization [employer] Address [address] [facility] 7t [place] [address] Care Team Providers Care Pharmacy Services Director Name Role Phone Neptali Palomo DMD Unavailable [phone] Reason for Visit * Reason Comments Med Refill Encounter Details Date Type Department Care Team (Late st Contact Info) Description 01/28/2024 Refill [facility] MEDICINE 230 [place], [place] [phone] Payal Walker, ANP 230 [place], [place] [phone] Type 2 diabetes mellitus with hyperlipidemia ([facility]/HCC) ([facility]) Social History Tobacco Use [...] 9:00 AM EDT Office Visit [facility] ADULT DENTAL [address] [place] [address] Neptali Palomo DMD [address] [place] [address] documented as of this encounter Visit Diagnoses Diagnosis Type 2 diabetes mellitus with hyperlipidemia (CMS/HCC) (CMS/HCC) documented in this encounter Additional Health Concerns Assessment Noted Time PHQ-9 Depression Total Score: 0 08/05/19 23 2:13 PM EDT documented as of this encounter Care Teams Pharmacy Services Director Relationship Specialty Start Date End Date Neptali Palomo DMD [address] [place] [address] Dentist 05/18/24 documented as of this encounter
--- OUTSIDE RECORDS SUMMARY | 2024-08-08 13:18 | XMS_ITS | Encounter Summary ---
Author Organization [employer] Address [address] [facility] [address] 7t [place] [address] Care Team Providers Care Retail Interior Designer Name Role Phone Aaron Payal RUANO Primary Care Provider [phone] Neptali Palomo DMD Unavailable [phone] Encounter Details Date Type Department Care Team (Late st Contact Info) Description 02/16/2023 Abstract [facility] MEDICINE [address] [place], [place] [phone] Mary Kate Emmanuel Social History Tobacco Use [...] [facility] [address] [place] [address] Neptali Palomo DMD [address] [place] [address] documented as of this encounter Procedures Procedure [...] documented as of this encounter Care Teams Retail Interior Designer Relationship Specialty Start Date End Date Payal Walker ANP [address] [place] [phone] PCP - General Family Medicine 11/20/21 08/04/23 Neptali Palomo DMD [address] [place] [address] Dentist 05/18/24 documented as of this encounter
--- OUTSIDE RECORDS SUMMARY | 2024-08-08 13:18 | XMS_ITS | Encounter Summary ---
Author Organization [employer] Address [address] [place] [address] 7 [place] [address] Care Team Providers Care Director Gift Name Role Phone Aaron Payal RUANO Primary Care Provider [phone] Neptali Palomo DMD Unavailable [phone] Reason for Visit * Reason Comments Med Refill Encounter Details Date Type Department Care Team (Late st Contact Info) Description 10/20/2022 Refill [facility] MEDICINE 230 [place], [place] [phone] [facility] 230 [place] [address] Social History Tobacco Use Types Packs/Day Years [...] Description 08/18/2024 9:00 AM EDT Office Visit [facility] ADULT DENTAL 505 [place], [place] [phone] Neptali Palomo, DMD 505 [place], [place] [phone] documented as of this encounter Visit Diagnoses Not on filedocumented in this encounter Additional Health Concerns Assessment Noted Time PHQ-9 Depression Total Score: 0 08/05/19 23 2:13 PM EDT documented as of this encounter Care Teams Director Gift Relationship Specialty Start Date End Date Payal Walker ANP [address] [place] [phone] PCP - General Family Medicine 11/20/21 08/04/23 Neptali Palomo DMD [address] [place] [address] Dentist 05/18/24 documented as of this encounter
--- OUTSIDE RECORDS SUMMARY | 2024-08-08 13:18 | XMS_ITS | Encounter Summary ---
Author Organization [employer] Address 75 [facility] 7t [place] [address] Care Team Providers Care Graduating Machine Operator Name Role Phone Neptali Palomo DMD Unavailable [phone] Reason for Visit * Reason Comments Med Refill Encounter Details Date Type Department Care Team (Late st Contact Info) Description 01/28/2024 Refill [facility] MEDICINE 230 [place], [place] [phone] Payal Walker, ANP [address] [place], [place] [phone] Social History Tobacco Use Types Packs/Day Years [...] Description 08/18/2024 9:00 AM EDT Office Visit [facility] ADULT DENTAL 505 [place] [address] Neptali Palomo DMD 505 [place] [address] documented as of this encounter Visit Diagnoses Not on filedocumented in this encounter Additional Health Concerns Assessment Noted Time PHQ-9 Depression Total Score: 0 08/05/19 2:13 PM EDT documented as of this encounter Care Teams Graduating Machine Operator Relationship Specialty Start Date End Date Neptali Palomo DMD [address] [place] [address] Dentist 05/18/24 documented as of this encounter
--- OUTSIDE RECORDS SUMMARY | 2024-08-08 13:18 | XMS_ITS | Encounter Summary ---
Author Organization [employer] Address [address] [facility] 7t [place] [address] Care Team Providers Care Supervisor Coating Name Role Phone Neptali Palomo DMD Unavailable [phone] Reason for Visit * Reason Comments Med Refill Encounter Details Date Type Department Care Team (Late st Contact Info) Description 04/14/2024 Refill [facility] MEDICINE 230 [place], [place] [phone] Payal Walker, ANP 230 [place], [place] [phone] Type 2 diabetes mellitus with hyperlipidemia ([facility]/HCC) ([facility]) Social History Tobacco Use Types [...] Description 08/18/2024 9:00 AM EDT Office Visit [facility] ADULT DENTAL 505 [place] [address] Neptali Palomo DMD 505 [place] [address] documented as of this encounter Visit Diagnoses Diagnosis Type 2 diabetes mellitus with hyperlipidemia (CMS/HCC) (CMS/HCC) documented in this encounter Additional Health Concerns Assessment Noted Time PHQ-9 Depression Total Score: 0 08/05/19 23 2:13 PM EDT documented as of this encounter Care Teams Supervisor Coating Relationship Specialty Start Date End Date Neptali Palomo DMD 505 [place] [address] Dentist 05/18/24 documented as of this encounter
--- OUTSIDE RECORDS SUMMARY | 2024-08-08 13:18 | XMS_ITS | Encounter Summary ---
Author Organization [employer] Address [address] [facility] 7t [place] [address] Care Team Providers Care Senior Structural Engineer Name Role Phone Neptali Palomo DMD Unavailable [phone] Reason for Visit * Reason Comments Med Refill Encounter Details Date Type Department Care Team (Late st Contact Info) Description 11/01/2023 Refill [facility] MEDICINE 230 [place], [place] [phone] Payal Walker, ANP [address] [place], [place] [phone] Primary hypertension Social History Tobacco Use Types [...] Description 08/18/2024 9:00 AM EDT Office Visit [facility] ADULT DENTAL 505 [place] [address] Neptali Palomo DMD 505 [place] [address] documented as of this encounter Visit Diagnoses Diagnosis Primary hypertension Unspecified essential hypertension documented in this encounter Additional Health Concerns Assessment Noted Time PHQ-9 Depression Total Score: 0 08/05/19 23 2:13 PM EDT documented as of this encounter Care Teams Senior Structural Engineer Relationship Specialty Start Date End Date Neptali Palomo DMD 505 [place] [address] Dentist 05/18/24 documented as of this encounter
--- OUTSIDE RECORDS SUMMARY | 2024-08-08 13:18 | XMS_ITS | Encounter Summary ---
Author Organization [employer] [facility] Address [address] [facility] 7 [place] [address] Care Team Providers Care Taco Maker Name Role Phone Payal Walker Primary Care Provider [phone] Neptali Palomo DMD Unavailable [phone] Encounter Details Date Type Department Care Team (Latest Contact Info) Description 10/03/2018 Abstract [facility] CONVERSIONS Dental, Provider, DDS Social [...] Description 08/18/2024 9:00 AM EDT Office Visit [facility] ADULT DENTAL [address] [place], [place] [phone] Neptali Palomo DMD [address] [place], [place] documented as of this encounter Visit Diagnoses Not on filedocumented in this encounter Care Teams Taco Maker Relationship Specialty Start Date End Date Payal Walker ANP 230 [place] [address] PCP - General Family Medicine 11/20/21 08/04/23 Neptali Palomo DMD [address] [place], [place] Dentist 05/18/24 documented as of this encounter
--- OUTSIDE RECORDS SUMMARY | 2024-08-08 13:18 | XMS_ITS | Clinical Summary ---
Author Organization [employer] Address [address] [facility] 7t [place] [address] Care Team Providers Care Clamp Jig Assembler Name Role Phone Neptali Palomo DMD Unavailable [phone] Allergies Active Allergy Reactions Criticality Noted [...] diabetes mellitus with hyperlipidemia (CMS/HCC) (CMS/[facility]) Use 1 by To Skin route once daily 100 each 3 05/14/19 23 Active Blood Glucose Monitoring Suppl (FreeStyle Lite) w/Device kitIndications:Typ e 2 diabetes mellitus without complication, unspecified whether termite exterminator insulin use (CMS/[facility]) 1 each before breakfast, before lunch, and before evening meal. 1 kit 07/11/19 23 Active Continuous Blood Gluc Lens Matcher (FreeStyle Agatha 2 [place]) deviceIndications: Type 2 diabetes mellitus with hyperlipidemia (CMS/HCC) (CMS/HCC) 1 each 5 (five) times a day. 1 each 07/28/19 23 Active Continuous Blood Gluc Sensor (FreeStyle Agatha 2 Sensor) miscIndications:Ty pe 2 diabetes mellitus with hyperlipidemia (CMS/HCC) ([facility]) 1 each every 14 (fourteen) [...] fasting and chem -referred to neurologist at [place] x stroke f up and to f CT ,MRI findings --unsure if actual aneurysm in CTA? 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 ----to continue care w neurologist -states is following w cardiology for valvular abnormality -from chart review hx of aortic valve calcification-pt states will schedule a f up visit w his cards at [facility] Pituitary microadenoma 08/17/2022 Assessment & Plan [...] Visit [facility] ADULT DENTAL [address] [place] [address] Neptali Palomo, DMD Defective dental episcopalian (Primary Dx) from Last 3 Months Immunizations [...] Description 08/18/2024 9:00 AM EDT Office Visit [facility] ADULT DENTAL [address] [place] [address] Neptali Palomo, DMD 505 [place] [address] Health Maintenance Due Date Last Done Comments [...] Routine 05/18/2024 10:00 AM EST Defective dental episcopalian 11 F(V) RESIN-BASED COMPOSITE - 1 SURF, ANTERIOR Routine 05/18/2024 10:00 AM EST Defective dental episcopalian 10 MFF(V)L RESIN-BASED COMPOSITE - 3 SURF, ANTERIOR Routine 05/18/2024 10:00 AM EST Defective dental episcopalian PROPHYLAXIS - ADULT Routine 12/01/2023 2 :00 [...] 9:03 AM EDT) Creatinine, Urine 89.78 mg/dL [facility] Microalbumin Urine 59.0 mg/L [facility] Microalbum Creatinine Ratio Ur 65.7 ug/mg cr [facility] Comment:Albumin/Creatinine R atio Reference Ranges: Normal: < 30 ug/mg creatinine Microalbuminuria: 30 - 300 ug/mg creatinineClinical Albuminuria: > 300 ug/mg creatinine 08/19/2022 9:03 AM EDT 08/19/2022 11:06 AM EDT [facility] External Provider LAB URI NE ORDERABLES Final Result Performing Organization Address [facility] Co de Phone Number [facility] [address] [place] [address] [phone] * Hemoglobin A1c (08/19/2022 9:03 AM EDT) Hemoglobin A1c 7.3 % [facility] Comment:Hemoglobin A1C Refer ence Range Adults: 4.8 - 6.0 % Non diabetic: < 6.0 % Goal: < 7.0 %Additional Action Suggested: > 8.0 %Note: Hemoglobin A1c results are invalid for patients with abnormal amounts of HbF. Blood transfusions may impact the HbA1c concentration in the patient sample. Estimated Average Glucose 163 mg/dL [facility] Comment:eAG = Estimated ave rage glucose which is %A1C expressed asaverage glucose, using the formula of the V7O-ZzibspnUefbnlk Glucose study (ADAG), Diabetes Care, Vol.31,#8,Oct. 2007 08/19/2022 9:03 AM EDT 08/19/2022 11:12 AM EDT [facility] External Provider LAB BLO OD ORDERABLES Final Result Performing Organization Address [facility] Co sc Phone Number [facility] [address] [place] [phone] * Lipid Panel, Standard (08/19/2022 9:03 AM EDT) Triglycerides 91 mg/dL [facility] Comment:Desirable Triglyceri de: less than 150 mg/dLBorderline High Triglyceride 150-199 mg/dLHigh Triglyceride: 200-499 mg/dLVery High Triglyceride: greater than or equal to 5OO mg/dL Cholesterol 186 mg/dL [facility] Comment:Desirable Cholestero l: less than 200 mg/dLBorderline High Cholesterol: 200-239 mg/dLHigh Cholesterol: greater than 239 mg/dL LDL Cholesterol Calculated 129 mg/dl [facility] Comment:Desirable LDL: less than 100 mg/dLNear Optimal/Above Optimal LDL: 110- 129 mg/dLBorderline High LDL: 130-159 mg/dLHigh LDL: 160-189 mg/dLVery High LDL: greater than or equal to 190 mg/dL HDL Cholesterol 39 mg/dL [facility] Comment:Desirable HDL: great er than 40 mg/dL Note: This HDL assay may give artificially low results in patients with liver disease. 08/19/2022 9:03 AM EDT 08/19/2022 11:12 AM EDT [facility] External Provider LAB BLO OD ORDERABLES Final Result [facility] [address] [place] [address] [phone] * HEPATITIS C AB W/REFL TO [...] a test for HCV RNA (test code 58813) is suggested. ?? For additional information please refer to http://education.Memento/faq/BRH02m3 (This link is being provided for informational/ educational purposes only.) ?? 07/16/2020 9:56 AM EDT Davida Webb ZIPPER SLIDE ATTACHER HISTORICAL/NON ORDERABLE LABS Final Result [facility] [address] [place] [address], * Hm Colonoscopy (05/01/2016) Colonoscopy Normal Normal Narrative Mary Kate Emmanuel - 05/01/2016 Repeat in 10 years us Historical Provider HEALTH MAINTENANCE Final Result from Last 3 Months or Most Recently Relevant to Health Maintenance Insurance [facility] [place] [id number] DENTAL-[facility] [place] [id number] [place] [id number] [place] [address] Care Teams Clamp Jig Assembler Relationship Specialty Start Date End Date Neptali Palomo DMD [address] [place] [address] [place] GOMEZ [address] Dentist 05/18/24
--- OUTSIDE RECORDS SUMMARY | 2024-08-08 13:18 | XMS_ITS | Encounter Summary ---
Author Organization [email or web address] Address [address] [facility] 7t [place] [address] Care Team Providers Care Regional Account Manager Name Role Phone Neptali Palomo DMD Unavailable [phone] Reason for Visit * Reason Comments Med Refill Encounter Details Date Type Department Care Team (Late st Contact Info) Description 12/09/[address] [facility] MEDICINE [address] [place], [place] [phone] Payal Walker, ANP 230 [place], [place] [phone] Type 2 diabetes mellitus with hyperlipidemia (CMS/HCC) ([facility]); Primary hypertension Social History Tobacco Use Types [...] Description 08/18/2024 9:00 AM EDT Office Visit [facility] ADULT DENTAL [address] [place] [address] Neptali Palomo DMD [address] [place] [address] documented as of this encounter Visit Diagnoses Diagnosis Type 2 diabetes mellitus with hyperlipidemia (CMS/HCC) (CMS/HCC) Primary hypertension Unspecified essential hypertension documented in this encounter Additional Health Concerns Assessment Noted Time PHQ-9 Depression Total Score: 0 08/05/19 2:13 PM EDT documented as of this encounter Care Teams Regional Account Manager Relationship Specialty Start Date End Date Neptali Palomo DMD [address] [place] [address] Dentist 05/18/24 documented as of this encounter
--- OUTSIDE RECORDS SUMMARY | 2024-08-08 13:18 | XMS_ITS | Encounter Summary ---
Author Organization [employer] Address 75 [facility] 7t [place] [address] Care Team Providers Care Crew Chief Name Role Phone Aaron Payal RUNAO Primary Care Provider [phone] Neptali Palomo DMD Unavailable [phone] Reason for Visit * Reason Comments Med Refill Encounter Details Date Type Department Care Team ([facility] st Contact Info) Description 06/25/2023 Refill [facility] MEDICINE 230 [place], [place] [phone] Siena Greenwood MD 230 [place], [place] [phone] GERD without esophagitis Social History Tobacco Use [...] [facility] [address] [place] [address] Neptali Palomo DMD [address] [place] [address] documented as of this encounter Visit Diagnoses Diagnosis GERD without esophagitis Esophageal reflux documented in this encounter Additional Health Concerns Assessment Noted Time PHQ-9 Depression Total Score: 0 08/05/19 2:13 PM EDT documented as of this encounter Care Teams Crew Chief Relationship Specialty Start Date End Date Payal Walker ANP [address] [place] [phone] PCP - General Family Medicine 11/20/21 08/04/23 Neptali Palomo DMD [address] [place] [address] Dentist 05/18/24 documented as of this encounter
--- OUTSIDE RECORDS SUMMARY | 2024-08-08 13:18 | XMS_ITS | Encounter Summary ---
Author Organization [employer] Address [address] [facility] 7t [place] [address] Care Team Providers Care Paver Layer Name Role Phone Neptali Palomo DMD Unavailable [phone] Reason for Visit * Reason Comments Med Refill Encounter Details Date Type Department Care Team (Late st Contact Info) Description 11/04/2023 Refill [facility] MEDICINE [address] [place], [place] [phone] Payal Walker, ANP [address] [place], [place] [phone] Type 2 diabetes mellitus with hyperlipidemia ([facility]/HCC) ([facility]) Social History Tobacco Use Types Packs/Day [...] Description 08/18/2024 9:00 AM EDT Office Visit [facility] ADULT DENTAL [address] [place] [address] Neptali Palomo DMD [address] [place] [address] documented as of this encounter Visit Diagnoses Diagnosis Type 2 diabetes mellitus with hyperlipidemia (CMS/HCC) (CMS/HCC) documented in this encounter Additional Health Concerns Assessment Noted Time PHQ-9 Depression Total Score: 0 08/05/19 23 2:13 PM EDT documented as of this encounter Care Teams Paver Layer Relationship Specialty Start Date End Date Neptali Palomo DMD [address] [place] [address] Dentist 05/18/24 documented as of this encounter
--- OUTSIDE RECORDS SUMMARY | 2024-08-08 13:18 | XMS_ITS | Encounter Summary ---
Author Organization [facility] [facility] Address [address] [facility] 7 [place] [address] Care Team Providers Care Motorized Squad Lieutenant Name Role Phone Payal Walker Primary Care Provider [phone] Neptali Palomo DMD Unavailable [phone] Encounter Details Date Type Department Care Team (Latest Contact Info) Description 02/12/2020 Abstract [facility] CONVERSIONS Dental, Provider, DDS Social [...] 9:00 AM EDT Office Visit [facility] CHC ADULT DENTAL [address] [place], [place] [phone] Neptali Palomo DMD [address] [place], [place] documented as of this encounter Visit Diagnoses Not on filedocumented in this encounter Care Teams Motorized Squad Lieutenant Relationship Specialty Start Date End Date Payal Walker ANP [address] [place] [address] PCP - General Family Medicine 11/20/21 08/04/23 Neptali Palomo DMD [address] [place], [place] Dentist 05/18/24 documented as of this encounter
--- OUTSIDE RECORDS SUMMARY | 2024-08-08 13:19 | XMS_ITS | Encounter Summary ---
Author Organization [employer] Address [address] [facility] 7t [place] [address] Care Team Providers Care Corrections Nurse Name Role Phone Neptali Palomo DMD Unavailable [phone] Reason for Visit * Reason Comments Med Refill Encounter Details Date Type Department Care Team (Late st Contact Info) Description 10/22/2023 Refill [facility] MEDICINE [address] [place], [place] [phone] Payal Walker, ANP [address] [place], [place] [phone] Type 2 diabetes mellitus with hyperlipidemia ([facility]/HCC) ([facility]) Social History [...] [facility] ADULT DENTAL [address] [place] [address] Neptali Palomo DMD [address] [place] [address] documented as of this encounter Visit Diagnoses Diagnosis Type 2 diabetes mellitus with hyperlipidemia (CMS/HCC) (CMS/HCC) documented in this encounter Additional Health Concerns Assessment Noted Time PHQ-9 Depression Total Score: 0 08/05/19 23 2:13 PM EDT documented as of this encounter Care Teams Corrections Nurse Relationship Specialty Start Date End Date Neptali Palomo DMD [address] [place] [address] Dentist 05/18/24 documented as of this encounter
== END 2024-08-08 14:27 | disposition home or self-care (01) ==
PROVIDERS: Visit Provider Internal Medicine
DX: B07.0 Plantar wart (principal)

== ENCOUNTER → 2024-08-08 11:55 | Outpatient (BNVA) | payer MEDICARE, MEDICAID, SELFPAY | PROVIDERS: PCP Nurse Practitioner Family; Visit Provider Internal Medicine | DX: B07.0 Plantar wart (principal) | CPT/HCPCS: 99212 ==

== ENCOUNTER 2024-08-18 13:52 | Outpatient (AMB) | payer MEDICARE, MEDICAID, SELFPAY ==
--- NOTE | 2024-08-18 13:53 | A.OFFVIS_ITS ---
Intake Visit Reasons: 1y follow up Intake Note: Patient is present for 1Y F/U Urology Medication:TAMSULOSIN,TADALAFIL Antibiotic Allergy:NONE Blood Thinner:NONE Natural Gas Field Processing Supervisor Required: No Allergies codeine (CODEINE) Allergy (Intermediate, Verified 09/07/24 07:52) TACHYCARDIA HPI Comments Details: Jessica is a pleasant male. He is a patient of Dr. Camarillo. He is seen for the following urologic conditions - erectile dysfunction - lower urinary tract symptoms Twelve month follow-up Continue with daily tamsulosin plus on demand tadalafil Check testosterone 04/17 450 Erectile dysfunction Background of diabetes and hypertension Prior history smoking Prior history penile fracture Does well with Cialis PSA 08/18 1.1, 08/19 1.1 Therapeutic plan continue tamsulosin and on demand tadalafil PFSH Medical History Palpitations Pancreatitis Arthritis GERD (gastroesophageal reflux disease) CVA (cerebral vascular accident) Microalbuminuric diabetic nephropathy Type II diabetes with fdc use of insulin Erectile dysfunction Vitamin D deficiency Multinodular thyroid Other and unspecified hyperlipidemia Essential hypertension Aortic valve calcification Surgical History History of esophagogastroduodenoscopy (EGD) H/O colonoscopy Family History Father Stroke Brother Stroke Mother Diabetes Social History Household Members: Spouse Housing: House Alcohol intake: never Patient Tobacco Use Status: Former Tobacco user e-Cigarette/Vaping Use: Never Used service: No Current occupational status: disabled Cognitive needs: No Hearing needs: No Vision needs: Yes Review of Systems Const Denies chills and Denies fever(s) Card Reports no additional complaints and Denies syncope Resp Denies cough GI Denies abdominal pain and Denies heartburn Reports as per HPI and Denies change in libido Neuro Denies syncope Psych Denies change in libido Endo Denies change in libido Physical Exam Const General: cooperative, healthy appearing, comfortable and no acute distress Orientation/consciousness: patient oriented x3 HEENT Face and sinus: Yes normal facial exam Mouth: moist mucous membranes Neck Neck: Yes normal visual inspection, Yes full ROM and Yes trachea midline Chest Chest palpation & inspection: normal inspection of the chest Resp Effort & Inspection: normal respiratory effort, able to speak in complete sentences and no respiratory distress GI Inspection: Yes normal to inspection Back/Spine/Pelvis Cervical Spine: normal cervical lordosis Thoracic/Lumbar Spine: thoracic and lumbar spine normal to inspection Skin General skin exam: no rashes or lesions noted Neuro General: patient oriented x3, gait normal, tone normal and moves all extremities Extrem General: Yes normal to inspection and Yes capillary refill normal Assessment & Plan Assessment & Plan (1) Erectile dysfunction associated with type 2 diabetes mellitus: Code(s): E11.69 - Type 2 diabetes mellitus with other specified complication; N52.1 - Erectile dysfunction due to diseases classified elsewhere Category: Medical (2) Urinary hesitancy: Code(s): R39.11 - Hesitancy of micturition Category: Medical Plan Six-month follow-up Continue current medications Orders: Orders Testosterone, Free/Total 08/18/24 E11.69 - Type 2 diabetes mellitus with other specified complication, N52.1 - Erectile dysfunction due to diseases classified elsewhere Lutenizing Hormone 08/18/24 E11.69 - Type 2 diabetes mellitus with other specified complication, N52.1 - Erectile dysfunction due to diseases classified elsewhere Patient Instructions: This note is constructed using voice recognition software. While every effort has been made to ensure accuracy materials specialist errors may have been included. Imaging studies, laboratory and physical exam results were discussed and reviewed in detail. No major barriers to patient understanding were identified. An opportunity to ask questions regarding the treatment plan was provided. All questions were answered. The patient expressed understanding and agreement with the above treatment plan. The patient is aware they should contact our office by phone for worsening of their current condition or the appearance of new urologic symptoms. Compliance is encouraged with any medications and followup testing that is ordered. It is a privilege to participate in the urologic care of your patient. If you have any questions or concerns regarding treatment for the above conditions, or other urologic issues, please do not hesitate to contact me. The office telephone contact is [phone]. Sincerely, Dr Fredy Cardenas MD, [facility] - Urology Compassionate Specialist Care for the Genitourinary System Coding Level of Care Code Est Pt Level 4 (16577) Complex EM visit Add On G2211 Diagnoses Erectile dysfunction associated with type 2 diabetes mellitus E11.69; N52.1 Urinary hesitancy R39.11
--- OUTSIDE RECORDS SUMMARY | 2024-08-18 13:54 | XMS_ITS | Encounter Summary ---
Author Organization [employer] Address [address] [place] [address] 7t [place] [address] Care Team Providers Care Charge Master Specialist Name Role Phone Payal Walker Primary Care Provider [phone] Neptali Palomo DMD Unavailable [phone] Reason for Visit * Reason Comments Med Refill Encounter Details Date Type Department Care Team ([facility] st Contact Info) Description 10/20/[address] [facility] MEDICINE [address] [place], [place] [phone] [facility] [address] [place] [address] Social History Tobacco Use Types Packs/Day Years [...] documented as of this encounter Care Teams Charge Master Specialist Relationship Specialty Start Date End Date Payal Walker ANP [address] [place] [address] PCP - General Family Medicine 11/20/21 08/04/23 Neptali Palomo DMD [address] [place] [address] Dentist 05/18/24 documented as of this encounter
== END 2024-08-18 14:43 | disposition home or self-care (01) ==
LOC: HO.HUSH 13:52
PROVIDERS: PCP Nurse Practitioner Family; Visit Provider Urology
DX: E11.69 Type 2 diabetes mellitus with other specified complication (principal); N52.1 Erectile dysfunction due to diseases classified elsewhere; R39.11 Hesitancy of micturition
CPT/HCPCS: 99214; G2211

== ENCOUNTER → 2024-08-18 13:52 | Outpatient (BNVA) | payer MEDICARE, MEDICAID, SELFPAY | PROVIDERS: PCP Nurse Practitioner Family; Visit Provider Urology | DX: E11.69 Type 2 diabetes mellitus with other specified complication (principal); N52.1 Erectile dysfunction due to diseases classified elsewhere; R39.11 Hesitancy of micturition | CPT/HCPCS: 99212 ==

== ENCOUNTER 2024-08-29 09:55 | Outpatient (REF) | payer MEDICARE, MEDICAID, SELFPAY ==
--- OUTSIDE RECORDS SUMMARY | 2024-08-29 11:16 | XMS_ITS | Encounter Summary ---
Author Organization [employer] Address [address] [place] [address] 7t [place] [address] Care Team Providers Care Engineering Project Designer Name Role Phone Payal Walker Primary Care Provider [phone] Neptali Palomo DMD Unavailable [phone] Reason for Visit * Reason Comments Med Refill Encounter Details Date Type Department Care Team ([facility] st Contact Info) Description 10/20/2022 Refill [facility] MEDICINE [address] [place], [place] [phone] [place] [facility] [address] [place] [address] Social History Tobacco Use Types Packs/Day Years [...] as of this encounter Care Teams Engineering Project Designer Relationship Specialty Start Date End Date Payal Walker ANP [address] [place] [id number] PCP - General Family Medicine 11/20/21 08/04/23 Neptali Palomo DMD [address] [place] [address] Dentist 05/18/24 documented as of this encounter
[2024-08-29 13:11] LABS: MANUAL DIFF FLAG NO
[2024-08-29 13:33] LABS: Basophils Percent Auto 0.5 % (0-2); Eosinophils Absolute Auto 0.2 X10*3/uL (0.0-0.4); Eosinophils Percent Auto 3.9 % (0-4); Hematocrit 49.3 % (42.0-52.0); Hemoglobin 16.8 g/dl (14.0-18.0); Imm Gran Abs Auto 0.01 X10*3/uL (0.00-0.03); Imm Gran Pct Auto 0.3 % (0.0-0.4); Lymphocytes Absolute Auto 1.3 X10*3/uL (1.2-4.9); Lymphocytes Percent Auto 33.3 % (20-40); Mean Corpuscular HGB Conc 34.1 g/dl (31.0-36.0); Mean Corpuscular Hemoglobin 27.9 pg (27.0-33.0); Mean Corpuscular Volume 81.8 fL (80.0-98.0); Mean Platelet Volume 10.8 fL (9.4-12.4); Monocytes Absolute Auto 0.3 X10*3/uL (0.1-1.2); Neutrophils Absolute Auto 2.1 x10*3/uL (2.0-8.3); Platelet Count 161 X10*3/uL (160-400); Red Blood Count 6.03 X10*6/uL (4.60-5.80); White Blood Count 3.8 X10*3/uL (4.8-10.8)
[2024-08-29 14:28] LABS: Alanine Aminotransferase 47 U/L (0-40); Albumin Level 4.4 g/dL (3.5-5.0); Alkaline Phosphatase 102 U/L (39-117); Anion Gap 10 (12-20); Aspartate Amino Transferase 27 U/L (5-37); Bilirubin Total 0.6 mg/dL (0.0-1.0); Blood Urea Nitrogen 25 mg/dL (9-16); Calcium 9.4 mg/dL (8.4-10.2); Carbon Dioxide 29 mmol/L (22-29); Chloride 105 mmol/L (96-108); Estimated Glomerular Filt Rate > 60; Glucose Random 239 mg/dL (60-115); Lipase 14 U/L (8-78); Potassium 3.9 mmol/L (3.3-5.1); Sodium 140 mmol/L (135-145); Total Protein 7.5 g/dL (6.5-8.0)
[2024-08-30 05:28] LABS: Lutenizing Hormone 5.3 mIU/mL (1.6-15.2)
[2024-08-30 09:54] LABS: Carbohydrate Antigen 19-9 15 U/mL (<34)
[2024-08-31 10:59] LABS: Mitochondrial Antibodies NEGATIVE (NEGATIVE)
[2024-09-02 15:18] LABS: Testosterone, Total 383 ng/dL (250-1100)
== END 2024-08-29 09:56 | disposition home or self-care (01) ==
LOC: HO.HMGCLDS 09:55
PROVIDERS: PCP Nurse Practitioner Family; Referring Provider Urology; Visit Provider Nurse Practitioner Family
DX: K86.2 Cyst of pancreas (principal); K86.3 Pseudocyst of pancreas; N52.1 Erectile dysfunction due to diseases classified elsewhere; E11.69 Type 2 diabetes mellitus with other specified complication; E04.2 Nontoxic multinodular goiter
CPT/HCPCS: 36415; 80053; 82947; 83002; 83690; 84402; 84403; 85025; 86301; 86381; 99212

== ENCOUNTER 2024-08-29 10:25 | Outpatient (AMB) | payer MEDICARE, MEDICAID, SELFPAY ==
--- NOTE | 2024-08-29 07:15 | A.OFFVIS_ITS ---
Vital Signs 08/29/24 10:34 08/29/24 11:12 Height 5 ft 8 in Weight 182 lb 15.739 oz BMI 27.8 BP 162/94 H 132/82 Blood Pressure Location Rt brachial Lt brachial Position Sitting Sitting Pulse 76 Pulse Source Pulse Oximeter Pulse Oximetry (%) 98 Oxygen Delivery Method Room Air Intake Visit Reasons: T2DM Intake Note: Patient presents today for a follow-up on Type 2 Diabetes Mellitus: Last Diabetic eye exam was on: DUE Last Podiatry exam was on: Patient does not see a Child Day Care Teacher Most recent HbA1c: 7.6%, 07/21/2024 Random Glucose- 200 mg/dL, Today Alcohol Law Enforcement Agent Required: Yes Alcohol Law Enforcement Agent Language: Screen Examiner Services: Alcohol Law Enforcement Agent Present Alcohol Law Enforcement Agent Name: IDANIA Ronquillo/JANAE SALVADOR Accompanied by: Self / Same As Patient Allergies codeine [CODEINE] Allergy (Intermediate, Verified 08/18/24 13:54) TACHYCARDIA HPI Comments Details: This is a 63-year-old male with a past medical history of pancreatitis, 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 Hemoglobin 07/21/24 7.6%, A1c 03/23/2024 7.7%, 08/11/2023 7.0% He has met with the ems educator to discuss going on an insulin pump. He has met with food broker and feels that he would be able to carbohydrate g count with the resources she gave him. He is interested in an Omnipod or ilet pump. He was previously on Trulicity which was discontinued secondary to pancreatitis. Metformin caused GI side effects Patient was previously on Jardiance which worked very well, and he did not have side effects, but his insurance had stopped covering it at 1 point. Denies history of infections Freestyle manda sensor 3 average glucose: To 13 14 day continuous glucose sensor report reviewed Glucose Management indicator 8.4 % Time CGM active 90 % TIme in ranges: 28 % very high (above 250) 36 % high (181-250) 36 % in range (70-180] 0 % low (69-55) 0 % very low (below 54) 32.2% Glucose variability (target <36%) Interpretation of CGMS running overall 70 points above target overnight highs. No lows on report but he does reports some overnight lows over the last week. Current diabetes medications: tresiba 28 units at bedtime Humalog T.i.d. with meals 80-150 8 units 151-200 10 units 201-300 12 units Above 300 14 units farxiga 5mg pioglitizone 15mg low dose as patient has a history of previous CVA and this may reduce the risk. Patient is not having any juice or soda. He does not smoke. He does not drink alcohol. He has a lot of salad and some rice in his diet. Avoids pasta. Was walking in the past but stopped due to cold weather. His weight is up 15 lb since the fall. Complications: Diabetic eye exam in 01/2024 . No known retinopathy. Patient has nephropathy ( microalbuminuria). 03/23/2024 eGFR>60 08/09/2023 microalbumin 54.0 he is now being followed by Nephrology at [facility] Patient has a history of CVA. [facility] Medical History Palpitations Pancreatitis Arthritis GERD (gastroesophageal reflux disease) CVA (cerebral vascular accident) Microalbuminuric diabetic nephropathy Type II diabetes with terminal operations manager use of insulin Erectile dysfunction Vitamin D deficiency Multinodular thyroid Other and unspecified hyperlipidemia Essential hypertension Aortic valve calcification Surgical History History of esophagogastroduodenoscopy (EGD) H/O colonoscopy Family History Father Stroke Brother Stroke Mother Diabetes Social History Household Members: Spouse Housing: House Alcohol intake: never Patient Tobacco Use Status: Former Tobacco user e-Cigarette/Vaping Use: Never Used service: No Current occupational status: disabled Cognitive needs: No Hearing needs: No Vision needs: Yes Physical Exam Vital Signs: Last Vital Signs Pulse 76 08/29/24 10:34 BP 132/82 08/29/24 11:12 Pulse Ox 98 08/29/24 10:34 Oxygen Delivery Method Room Air 08/29/24 10:34 BMI result Body Mass Index 27.8 Const Other: Absence of Cushingoid features. Absence of acromegalic features. Neck exam reveals nl size thyroid about 15 gms. No thyroid nodules palpable. Heart S1 S2, Reg R/R. No M/R G. Skin exam reveals absence of vitiligo or acanthosis nigricans. No edema Visual exam of foot performed. No ulcerations or open lesions. No inter digit maceration or fissuring. No onychomycosis, no callouses. Sensation intact to monofilament exam. Vibratory sensation is normal with 128 Hz tuning fork. Pulses positive distally Results Reviewed Results Reviewed: Laboratory Last Values Glucose (Clinic) 200 mg/dL (60-115) H 08/29/24 10:39 Assessment & Plan Assessment & Plan (1) Type 2 diabetes mellitus with unspecified complications: Code(s): E11.8 - Type 2 diabetes mellitus with unspecified complications Category: Medical Plan: 63-year-old type 2 diabetic with nephropathy and previous history of CVA with a A1c 7.6% on 07/21/2024. Two weeks sensor download shows an average of 213 with no lows. Pioglitazone was added last visit to reduce risk of additional stroke. Continue same dose of Tresiba as he has had a few overnight lows. Short-acting insulin increase his scale to 10, 14, 16, 18 (increased by 2 units) He is interested in an Omnipod insulin pump. He will proceed with pump education and get started on Omnipod and we will see a provider within the month after starting (2) Multinodular thyroid: Code(s): E04.2 - Nontoxic multinodular goiter Category: Medical Plan: Ultrasound order Orders: Orders US thyroid Today E04.2 - Nontoxic multinodular goiter Medications: Changed From Admelog SoloStar U-100 Insulin (insulin lispro) 80-150 8 units 151-200 10 units 201-300 12 units over 300 14 units subcutaneously 3 times a day; 30 days 15 mL 11RF MDD 42 units NS To Admelog SoloStar U-100 Insulin (insulin lispro) 80-150 10 units 151-200 12 units 201-300 14 units over 300 16 units subcutaneously 3 times a day; 30 days 15 mL 11RF MDD 42 units NS Refilled dapagliflozin propanediol (Farxiga) 5 mg PO QAM 90 days 90 tabs 3RF Coding Level of Care Code Est Pt Level 4 (44553) Complex EM visit Add On G2211 Diagnoses Type 2 diabetes mellitus with unspecified complications E11.8 Multinodular thyroid E04.2 Time Spent (min) 30 Comment Time spent reviewing labs/provider notes, glucose,sensor reports, face to face, chart doc
[2024-08-29 10:34] VITALS: BP 162/94; PULSE 76; O2SAT 98; BMI 27.8
[2024-08-29 10:43] LABS: Glucose, Whole Blood 200 mg/dL (60-115)
[2024-08-29 11:12] VITALS: BP 132/82
== END 2024-08-29 11:13 | disposition home or self-care (01) ==
LOC: HO.ENCR 10:25
PROVIDERS: PCP Nurse Practitioner Family; Visit Provider Nurse Practitioner Adult Health
DX: E11.8 Type 2 diabetes mellitus with unspecified complications (principal); E04.2 Nontoxic multinodular goiter
CPT/HCPCS: 99214; G2211

== ENCOUNTER 2024-08-31 10:47 | Outpatient (AMB) | payer MEDICARE, MEDICAID, SELFPAY ==
--- NOTE | 2024-08-31 11:32 | A.OFFVIS_ITS ---
Intake Intake Visit Reasons: Discuss other pump opt Belt Glass Sander Required: Yes Belt Glass Sander Language: Dance Director Name: Edd [facility] [place] Accompanied by: Self / Same As Patient Allergies codeine [CODEINE] Allergy (Intermediate, Verified 08/18/24 13:54) TACHYCARDIA HPI Comprehensive Diabetes Asmnt Most Recent Diabetes Results: Hemoglobin A1c TNP % 02/20/19 Microalb/Creat Ratio 51.4 ug/mg cr (<30) H 08/09/23 Cholesterol 264 mg/dL (<200) H 03/21/24 HDL Cholesterol 47 mg/dL (>40) 03/21/24 Triglycerides 136 mg/dL (<150) 03/21/24 Creatinine 0.82 mg/dL (0.5-1.4) 08/29/24 Blood Urea Nitrogen 25 mg/dL (9-16) H 08/29/24 Sodium 140 mmol/L (135-145) 08/29/24 Potassium 3.9 mmol/L (3.3-5.1) 08/29/24 Chloride 105 mmol/L (96-108) 08/29/24 Carbon Dioxide 29 mmol/L (22-29) 08/29/24 Calcium 9.4 mg/dL (8.4-10.2) 08/29/24 AST 27 U/L (5-37) 08/29/24 ALT 47 U/L (0-40) H 08/29/24 Total Protein 7.5 g/dL (6.5-8.0) 08/29/24 Albumin 4.4 g/dL (3.5-5.0) 08/29/24 [facility] Medical History Palpitations Pancreatitis Arthritis GERD (gastroesophageal reflux disease) CVA (cerebral vascular accident) Microalbuminuric diabetic nephropathy Type II diabetes with group home use of insulin Erectile dysfunction Vitamin D deficiency Multinodular thyroid Other and unspecified hyperlipidemia Essential hypertension Aortic valve calcification Surgical History History of esophagogastroduodenoscopy (EGD) H/O colonoscopy Family History Father Stroke Brother Stroke Mother Diabetes Social History Household Members: Spouse Housing: House Alcohol intake: never Patient Tobacco Use Status: Former Tobacco user e-Cigarette/Vaping Use: Never Used service: No Current occupational status: disabled Cognitive needs: No Hearing needs: No Vision needs: Yes Assessment & Plan Assessment & Plan (1) Type 2 diabetes mellitus with unspecified complications: Code(s): E11.8 - Type 2 diabetes mellitus with unspecified complications Plan: Carb Counting Basic Patient presents for appointment carbohydrate counting education. Reviewed the basic principles of carbohydrate counting.? Diet Recall: Dinner: Chicken with 1/2 cup of beans, 1 cup of rice = 60 gms Patient given healthy plate handout, for resource for carbohydrate counting Encourage patient to fill out food logs, estimating carbohydrates at meals, noting glucose number prior to meal, and how many units of insulin taken prior to meals Patient appeared overwhelmed by discussion regarding carb counting. Suggested to patient he just spent the next month identifying carbohydrates that he is eating, he can get his fasting glucose and C-peptide drawn, follow-up with rn diabetes educator in 1 month Patient is now interested in Omnipod 5, did discuss with patient having to transitioned to freestyle Agatha 2+ for compatibility with Omnipod 5 Portions of this note were created using voice recognition software, please excuse any words or phrases that may have been misinterpreted. Coding Level of Care Code Est Pt Level 1 (78428) Diagnoses Type 2 diabetes mellitus with unspecified complications E11.8
--- OUTSIDE RECORDS SUMMARY | 2024-08-31 12:41 | XMS_ITS | Encounter Summary ---
Author Organization [employer] Address [address] [place] [address] 7t [place] [address] Care Team Providers Care Research Support Specialist Name Role Phone Payal Walker Primary Care Provider [phone] Neptali Palomo DMD Unavailable [phone] Reason for Visit * Reason Comments Med Refill Encounter Details Date Type Department Care Team ([facility] st Contact Info) Description 10/20/2022 Refill [facility] MEDICINE [address] [place], [place] [phone] [place] [facility] [address] [place] [address] Social History Tobacco Use Types Packs/Day Years [...] as of this encounter Care Teams Research Support Specialist Relationship Specialty Start Date End Date Payal Walker ANP [address] [place] [address] PCP - General Family Medicine 11/20/21 08/04/23 Neptali Palomo DMD [address] [place] [address] Dentist 05/18/24 documented as of this encounter
== END 2024-08-31 11:34 | disposition home or self-care (01) ==
LOC: HO.ENCR 10:47
PROVIDERS: PCP Nurse Practitioner Family; Visit Provider Registered Nurse Diabetes Educator
DX: E11.8 Type 2 diabetes mellitus with unspecified complications (principal)

== ENCOUNTER → 2024-08-31 10:47 | Outpatient (BNVA) | payer MEDICARE, MEDICAID, SELFPAY | PROVIDERS: PCP Nurse Practitioner Family; Visit Provider Registered Nurse Diabetes Educator | DX: E11.8 Type 2 diabetes mellitus with unspecified complications (principal) | CPT/HCPCS: 99211 ==

== ENCOUNTER 2024-09-01 08:31 | Outpatient (REF) | payer MEDICARE, MEDICAID, SELFPAY ==
--- OUTSIDE RECORDS SUMMARY | 2024-09-01 08:42 | XMS_ITS | Encounter Summary ---
Author Organization [employer] Address [address] [place] [address] 7t [place] [address] Care Team Providers Care Coater Carbon Paper Name Role Phone Payal Walker Primary Care Provider [phone] Neptali Palomo DMD Unavailable [phone] Reason for Visit * Reason Comments Med Refill Encounter Details Date Type Department Care Team ([facility] st Contact Info) Description 10/20/2022 Refill [facility] MEDICINE 230 [place], [place] [phone] [place] [facility] 230 [place] [address] Social History Tobacco Use Types Packs/Day Years [...] documented as of this encounter Care Teams Coater Carbon Paper Relationship Specialty Start Date End Date Payal Walker ANP [address] [place] [address] PCP - General Family Medicine 11/20/21 08/04/23 Neptali Palomo DMD [address] [place] [address] Dentist 05/18/24 documented as of this encounter
[2024-09-01 11:00] LABS: Glucose Fasting 192 mg/dL (60-99)
[2024-09-02 06:53] LABS: C Peptide 1.48 ng/mL (0.80-3.85)
== END 2024-09-01 08:32 | disposition home or self-care (01) ==
LOC: HO.HMGCLDS 08:31
PROVIDERS: PCP Nurse Practitioner Family; Visit Provider Nurse Practitioner Adult Health
DX: E11.8 Type 2 diabetes mellitus with unspecified complications (principal)
CPT/HCPCS: 36415; 82947; 84681

== ENCOUNTER 2024-09-07 07:48 | Outpatient (AMB) | payer MEDICARE, MEDICAID, SELFPAY ==
--- OUTSIDE RECORDS SUMMARY | 2024-09-07 07:50 | XMS_ITS | Encounter Summary ---
Author Organization [employer] Address [address] [place] [address] 7t [place] [address] Care Team Providers Care Boring Mill Set Up Operator Vertical Name Role Phone Payal Walker Primary Care Provider [phone] Neptali Palomo DMD Unavailable [phone] Reason for Visit * Reason Comments Med Refill Encounter Details Date Type Department Care Team ([facility] st Contact Info) Description 10/20/2022 Refill [facility] MEDICINE 230 [place], [place] [phone] [place] [facility] 230 [place] [address] Social History Tobacco Use Types Packs/Day Years [...] documented as of this encounter Care Teams Boring Mill Set Up Operator Vertical Relationship Specialty Start Date End Date Payal Walker ANP [address] [place] [address] PCP - General Family Medicine 11/20/21 08/04/23 Neptali Palomo DMD [address] [place] [address] Dentist 05/18/24 documented as of this encounter
[2024-09-07 07:51] VITALS: BP 122/80; PULSE 87; RESP 16; TEMP 36.7; O2SAT 97; BMI 27.8
--- NOTE | 2024-09-07 07:51 | A.OFFPC_ITS ---
Vital Signs 09/07/24 07:51 Height 5 ft 8 in Weight 183 lb BMI 27.8 BP 122/80 Blood Pressure Location Rt brachial Position Sitting Respiration 16 Pulse 87 Pulse Source Pulse Oximeter Temp 98.1 F Temp Source Oral Pulse Oximetry (%) 97 Oxygen Delivery Method Room Air Intake Visit Reasons: follow up Intake Note: Pt is here today for his f/u Allergies codeine [CODEINE] Allergy (Intermediate, Verified 09/07/24 07:52) TACHYCARDIA Tobacco use date assessed: 09/07/24 Dental Screening Dental Screen Date: 09/07/24 Did you have a dental visit in the last 12 months?: Yes Did you have a dental problem in the last 6 months where you did not have access to dental care?: No Was dental information given to patient?: Patient has dentist HPI follow up HPI Details Chief Complaint The patient presents for follow-up of chronic conditions and reports abdominal discomfort and shortness of breath with exertion. History of Present Illness The patient is a 63-year-old male presenting for follow-up of multiple chronic conditions including nodular goiter, diabetes mellitus, and pancreatitis with pancreatic cyst. His pancreatic cyst is getting smaller, although he continues to experience some abdominal discomfort. The patient also reports shortness of breath with exertion and wheezing, with a history of asthma that was previously undocumented. He is being started on Xopenex due to concerns about tachycardia with regular albuterol, and pulmonary function testing is planned. Denies any radicular symptoms with chest discomfort with exertion. Additionally, the patient has a history of aortic stenosis and sees a cofferdam construction supervisor regularly. Social History Health Maintenance Review of Systems - Respiratory: Reports dyspnea on exerti on and wheezing - Gastrointestinal: Reports abdominal di scomfort denies any fevers, chills, dizziness, CARRANZA. Physical Exam General: Cooperative, healthy appearing, comfortable, no acute distress and well developed Orientation: Patient oriented x3 Limitations: No limitations Head: Normal to inspection Ears: Hearing grossly normal bilaterally Nose: Normal external nose present Face and sinus: Normal facial exam Eyes: Appearance normal, both eyes and all related structures Neck: Normal visual inspection and Yes full ROM Respiratory: Normal respiratory effort and able to speak in complete sentences. Clear to auscultation bilaterally, no current wheezing Cardiovascular: Regular rate and rhythm. Normal S1 and S2, systolic murmur noted GI: Normal to inspection. Soft to palpation and nontender Skin: No rashes or lesions noted Neuro: Patient oriented x3 Extremities: Normal to inspection Results Plan The patient will continue to follow up with gastroenterology for management of pancreatitis and monitoring of the pancreatic cyst, which is noted to be decreasing in size. Pulmonary function testing will be conducted to assess the patient's asthma, and Xopenex has been prescribed to manage symptoms while avoiding tachycardia associated with albuterol. An EKG will be performed to evaluate the chest discomfort and assess the patient's cardiac status, given his history of aortic stenosis and regular cardiology follow-ups. Discussion Notes I discussed with the patient the importance of continuing follow-up with gastroenterology for his pancreatitis and pancreatic cyst, which is showing improvement. We also talked about the need for pulmonary function testing to better understand his asthma and the rationale for prescribing Xopenex instead of albuterol. Additionally, I explained the plan to perform an EKG to invest igate his chest discomfort, considering his history of aortic stenosis. Patient Instructions - Continue follow-up with gastroenterolo gy for pancreatitis and pancreatic cyst management. - Use Xopenex as prescribed for asthma s ymptoms and avoid albuterol to prevent tachycardia. - Schedule and complete pulmonary functi on testing as advised. - Follow up with cardiology and complete the EKG as planned. [facility] Medical History Palpitations Pancreatitis Arthritis GERD (gastroesophageal reflux disease) CVA (cerebral vascular accident) Microalbuminuric diabetic nephropathy Type II diabetes with chcf use of insulin Erectile dysfunction Vitamin D deficiency Multinodular thyroid Other and unspecified hyperlipidemia Essential hypertension Aortic valve calcification Surgical History History of esophagogastroduodenoscopy (EGD) H/O colonoscopy Family History Father Stroke Brother Stroke Mother Diabetes Social History Household Members: Spouse Housing: House Alcohol intake: never Patient Tobacco Use Status: Former Tobacco user e-Cigarette/Vaping Use: Never Used service: No Current occupational status: disabled Cognitive needs: No Hearing needs: No Vision needs: Yes Questionnaire PHQ-9 Over the last 2 weeks, how often have you been bothered by any of the following problems? 1. Little interest or pleasure in doing things: not at all 2. Feeling down, depressed, or hopeless: not at all 3. Trouble falling or staying asleep, or sleeping too much: not at all 4. Feeling tired or having little energy: not at all 5. Poor appetite or overeating: not at all 6. Feeling bad about yourself - or that you are a failure or have let yourself or your family down: not at all 7. Trouble concentrating on things, such as reading the newspaper or watching television: not at all 8. Moving or speaking so slowly that other people could have noticed. Or the opposite - being so fidgety or restless that you have been moving around a lot more than usual: not at all 9. Thoughts that you would be better off or of hurting yourself in some way: not at all Total score: 0 Depression Screening Interpretation: Negative Depression Screening Done: Yes 24504 - PHQ-9 Billing: Yes Source: Developed by Drs. Isidoro England, Kylie Fabian, Arnol Muñiz and colleagues, with an educational timur from [employer]. Thrive Questionnaire Date Thrive assessed: 09/07/24 I am a: Patient What is your living situation today?: I have a steady place to live Within the past 12 months, did the food you bought not last and you didn't have the money to get more?: Never true Within the past 12 months, did you worry whether your food would run out before you got money to buy more?: Never true Do you have trouble paying for medicines?: No Do you have trouble getting transportation to medical appointments?: No Do you have trouble paying your heating and electricity bill?: No Do you have trouble taking care of your child, family member or friend?: No Do you have trouble with day-to-day activities such as bathing, preparing meals, shopping, managing finances, etc.?: No Are you currently unemployed and looking for a job?: No Are you interested in more education?: No THRIVE Score: 0 AUDIT C Alcohol Use Questionnaire (AUDIT-C) 3. How often do you have six or more drinks on one occasion?: Never Total Score: 0 LOBO-7 AMB Questionnaire LOBO-7 Date LOBO - 7 assessed: 09/07/24 Feeling nervous, anxious, or on edge: 0 = Not at all Not being able to stop or control worryin = Not at all Worrying too much about different things: 0 = Not at all Trouble relaxin = Not at all Being so restless that it is hard to sit still: 0 = Not at all Becoming easily annoyed or irritable: 0 = Not at all Feeling afraid as if something awful might happen: 0 = Not at all Total LOBO-7 score (0-4 normal; 5-9 mild; 10-14 moderate; 15-21 severe): 0 Source: Developed by Drs. Isidoro England, Kylie Fabian, Arnol Muñiz and colleagues, with an educational timur from [employer]. Physical exam (Primary Care) Vital Signs: Last Vital Signs Temp 98.1 F 09/07/24 07:51 Pulse 87 09/07/24 07:51 Resp 16 09/07/24 07:51 BP 122/80 09/07/24 07:51 Pulse Ox 97 09/07/24 07:51 Oxygen Delivery Method Room Air 09/07/24 07:51 BMI result Body Mass Index 27.8 Tobacco/Smoking Status: Tobacco use Status Tobacco use date assessed 09/07/24 09/07/24 07:52 Patient Tobacco Use Status Former Tobacco user 09/07/24 07:52 e-Cigarette/Vaping Use Never Used 09/07/24 07:52 PHQ-9: PHQ-9 Score PHQ-9: Total score 0 09/07/24 08:00 Depression Screening Interpretation: Negative Thrive Assessment: Date of Thrive Assessment Date Thrive assessed 09/07/24 09/07/24 07:55 Coding Level of Care Code Est Pt Level 4 (37963) Complex EM visit Add On G2211 Diagnoses Asthma J45.909 SOB (shortness of breath) on exertion R06.02 Additional Codes PHQ-9 - 10754 - PHQ-9 Billing: Yes ([id number]) Assessment & Plan Assessment & Plan (1) Asthma: Code(s): J45.909 - Unspecified asthma, uncomplicated Category: Medical (2) SOB (shortness of breath) on exertion: Code(s): R06.02 - Shortness of breath Category: Medical Plan . Orders: Orders AMB EKG-In Office Today R06.02 - Shortness of breath PFT pulmonary function test Today J45.909 - Unspecified asthma, uncomplicated Medications: New levalbuterol tartrate 45 mcg/actuation (Xopenex HFA) 1 puff inhalation Q4-6H PRN 15 grams 0RF shortness of breath
== END 2024-09-07 08:44 | disposition home or self-care (01) ==
LOC: HO.HMCC 07:48
PROVIDERS: PCP Nurse Practitioner Family; Visit Provider Nurse Practitioner Family
DX: J45.909 Unspecified asthma, uncomplicated (principal); R06.02 Shortness of breath

== ENCOUNTER → 2024-09-07 07:48 | Outpatient (BNVA) | payer MEDICARE, MEDICAID, SELFPAY | PROVIDERS: PCP Nurse Practitioner Family; Visit Provider Nurse Practitioner Family | DX: J45.909 Unspecified asthma, uncomplicated (principal); R06.02 Shortness of breath | CPT/HCPCS: 96127; 99212 ==

== ENCOUNTER 2024-09-30 16:15 | Emergency (ER) | payer MEDICARE, MEDICAID, SELFPAY ==
--- NOTE | ~2024-09-30 | XR_ITS ---
CLINICAL HISTORY: fall Radiograph of the pelvis, single view Comparison: None available Findings: No fracture or dislocation. No degenerative change in the pelvis. Moderate to severe lower lumbar degenerative change. Bone mineralization is normal. Vascular calcifications. Impression: No acute findings. This document has been electronically signed by: Sumi Johnson MD on 09/30/2024 19:51:26
--- NOTE | ~2024-09-30 | CT_ITS ---
CLINICAL HISTORY: T12 compression fracture acute injury CT lumbar spine without contrast Comparison: CR - XR LUMBAR SPINE 2-3V - 09/30/24 19:08 EDT CR/MS/SR - XR LUMBAR SPINE 2-3V - 07/13/22 14:26 EDT Findings: Alignment is preserved. Mild height loss of T12 with a fracture line near the superior endplate. No retropulsion of fracture fragments or involvement of the posterior elements. The osseous structures are otherwise intact. Incomplete fusion of the posterior arch of S1. No severe central spinal canal stenosis. No epidural hematoma. No acute soft tissue abnormality or acute findings in the visualized abdomen and pelvis. Impression: Acute mild compression fracture of T12. This document has been electronically signed by: Sumi Johnson MD on 09/30/2024 21:00:59
--- NOTE | ~2024-09-30 | XR_ITS ---
CLINICAL HISTORY: s p fall Radiographs of the lumbar spine, 3 views Comparison: MR - MR ABDOMEN WO/W CON - 07/23/24 12:03 EDT CR/NM/SR - XR LUMBAR SPINE 2-3V - 07/13/22 14:26 EDT Findings: There is normal alignment. Mild height loss of T12, new since the prior studies. The vertebral body heights are otherwise preserved. Moderate to severe intervertebral disc space narrowing at L5/S1 with moderate endplate osteophytosis and mild sclerosis. Intervertebral disc space narrowing is otherwise mild. Trace endplate osteophytosis at L4. Moderate lower lumbar facet hypertrophy. Vascular calcifications. Impression: Mild height loss of T12 which is new since the prior studies. An acute fracture could be considered. Moderate to severe degenerative change at L5/S1. Otherwise mild degenerative change. This document has been electronically signed by: Sumi Johnson MD on 09/30/2024 19:50:23
[2024-09-30 16:24] VITALS: BP 119/80; PULSE 76; RESP 18; TEMP 36.6; O2SAT 98; BMI 27.8
--- NOTE | 2024-09-30 16:24 | ED.GENADULT ---
HPI - General Adult General Chief complaint: Fall Stated complaint: fell downstairs, back pain Time Seen by Provider: 09/30/24 18:25 Source: patient Mode of arrival: ambulatory Limitations: no limitations History of Present Illness ED Provider: HPI narrative: Patient's tripped and fell mid stairs slided down sick 7 steps complaining of pain in the lower back no head injury no loss of consciousness no other injuries patient ambulatory as such Related Data Home Medications ?Medication ?Instructions ?Recorded ?Confirmed fluoxetine 40 mg capsule 40 mg PO DAILY 03/28/20 08/08/24 hydroxyzine HCl 10 mg tablet 10 mg PO BEDTIME PRN Anxiety 03/28/20 08/08/24 clonazepam 1 mg tablet 1 mg PO BEDTIME PRN Anxiety 06/17/21 08/08/24 gabapentin 600 mg tablet 600 mg PO BEDTIME 01/18/23 08/08/24 pen needle, diabetic 32 gauge x #100 ea 07/21/24 08/08/2404/01 Previous Rx's ?Medication ?Instructions ?Recorded ibuprofen 600 mg tablet 600 mg PO Q6H PRN fever or pain 11/30/22 #30 tabs glucose 4 gram chewable tablet 16 g (4 x 4 gram) PO Q15M PRN 02/04/24 (Dex4 Glucose) hypoglycemia 30 days #30 tabs omeprazole 20 mg capsule,delayed 20 mg PO DAILY 90 days #90 caps 04/05/24 release losartan 25 mg tablet 25 mg PO DAILY 30 days #90 tabs 04/26/24 pen needle, diabetic 32 gauge x #400 ea 05/09/24 Tresiba FlexTouch U-200 200 28 unit (0.14 mL) subcut BEDTIME 07/21/24 unit/mL (3 mL) subcutaneous pen #6 mL (insulin degludec) pioglitazone 15 mg tablet 15 mg PO DAILY 30 days #30 tabs 07/21/24 acetone (urine) test (Ketone Urine #25 ea 07/27/24 Test strips) tadalafil 5 mg tablet 5 mg PO DAILY sexual activity 90 08/18/24 days #90 tabs tamsulosin 0.4 mg capsule 0.4 mg PO BEDTIME 90 days #90 caps 08/18/24 Admelog SoloStar U-100 Insulin 100 See Rx Instructions subcut TID 30 06/03/25 unit/mL subcutaneous pen (insulin days #15 mL lispro) dapagliflozin propanediol 5 mg 5 mg PO QAM 90 days #90 tabs 08/29/24 tablet (Farxiga) albuterol sulfate 90 mcg/actuation 2 puff inhalation Q6H PRN 09/09/24 aerosol inhaler (Ventolin HFA) shortness of breath or wheezing #8.5 grams cyclobenzaprine 10 mg tablet 10 mg PO Q8H #20 tabs 09/30/24 ibuprofen 600 mg tablet 600 mg PO Q6H PRN fever or pain 09/30/24 #30 tabs oxycodone 5 mg tablet 5 mg PO Q6H PRN pain #20 tabs 09/30/24 Allergies Allergy/AdvReac Type Severity Reaction Status Date / Time codeine (CODEINE) Allergy Intermediate TACHYCARDIA Verified 09/30/24 16:27 Review of Systems Review of Systems: Yes all other systems are reviewed and are negative [facility] Past Medical History Medical History Palpitations Pancreatitis Arthritis GERD (gastroesophageal reflux disease) CVA (cerebral vascular accident) Microalbuminuric diabetic nephropathy Type II 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 Erectile dysfunction Vitamin D deficiency Multinodular thyroid Other and unspecified hyperlipidemia Essential hypertension Aortic valve calcification Surgical History History of esophagogastroduodenoscopy (EGD) H/O colonoscopy Family History Family History Father Stroke Brother Stroke Mother Diabetes Social History Social History Household Members: Spouse Housing: House Alcohol intake: never Patient Tobacco Use Status: Former Tobacco user e-Cigarette/Vaping Use: Never Used service: No Current occupational status: disabled Cognitive needs: No Hearing needs: No Vision needs: Yes Physical Exam ED Vital Signs: Vital Signs - 24 hr 09/30/24 16:24 09/30/24 19:29 09/30/24 22:07 Temperature 97.8 F 98.2 F 98 F Pulse Rate 76 76 68 Respiratory Rate 18 19 18 Blood Pressure 119/80 153/94 H 131/86 Pulse Oximetry 98 97 97 Oxygen Delivery Method Room Air Room Air Room Air 09/30/24 22:19 Temperature 98 F Pulse Rate 68 Respiratory Rate 18 Blood Pressure 131/86 Pulse Oximetry 97 Oxygen Delivery Method Room Air BMI result Body Mass Index 27.8 Appearance: Alert. Oriented X3. No acute distress. Eyes: PERRLA, No Nystagmus ENT: Pharynx normal. Oral Mucosa moist Neck: Normal inspection. Neck supple. CVS: Normal heart rate and rhythm. Pulses normal. Respiratory: No respiratory distress. Equal air entry bilateral, no wheezing/rales/rhonchi Abdomen: Soft and nontender. Bowel sounds are present, no mass palpable, no CVA tenderness Skin: Skin warm and dry. Normal skin color. Normal skin turgor. Extremities: No lower extremity edema. No calf tenderness back: Tenderness as L1-T12 area and sacral without any deformity Neuro: Oriented X 3. No motor deficit. No sensory deficit.No cerebellar signs , cranial nerves II-XII intact Course Course Course Narrative: RME performed by Ashly Espino PA-C. Patient is a 64 year old assigned male at presenting to the emergency department with back pain after sliding down some stairs. Detailed physical exam and review of systems are deferred to the labor and delivery registered nurse. Patient placed back in the waiting room pending room availability. Medications Administered Discontinued Medications Generic Name Dose Route Start Last Admin Trade Name Freq PRN Reason Stop Dose Admin Morphine Sulfate 15 mg 09/30/24 18:54 09/30/24 19:37 Morphine Sulfate Immed Release 15 Mg Tablet PO 09/30/24 18:55 15 mg ONCE ONE Administration Medical Decision Making Medical Decision Making [facility] Narrative: Patient with status post fall with mild T12 compression fracture after the fall with no retropulsion no signs of spinal cord involvement patient ambulatory in his steady gait pain medication was given Differential Diagnosis Differential Diagnoses: The differential diagnosis associated with the presentation includes Independent Interpretation I performed an independent interpretation of an: CT Scan Radiology Impression Discussion of test interpretation with radiology: I have reviewed the radiologist's reading. Radiologist Impression: Findings: Alignment is preserved. Mild height loss of T12 with a fracture line near the superior endplate. No retropulsion of fracture fragments or involvement of the posterior elements. The osseous structures are otherwise intact. Incomplete fusion of the posterior arch of S1. No severe central spinal canal stenosis. No epidural hematoma. No acute soft tissue abnormality or acute findings in the visualized abdomen and pelvis. Impression: Acute mild compression fracture of T12. This document has been electronically signed by: Sumi Johnson MD on 09/30/2024 21:00:59 Discharge Plan Discharge Clinical Impression: Compression fracture of T12 vertebra Patient Disposition: Home, Self-Care Instructions: Vertebral Compression Fracture (ED) Additional Instructions: You have T12 vertebral compression fracture from the injury Take pain medication as prescribed Follow with your PCP if not better Prescriptions: New oxycodone 5 mg tablet 5 mg PO Q6H PRN (Reason: pain) Qty: 20 0RF Rx Instructions: Partial Fill upon patient request. cyclobenzaprine 10 mg tablet 10 mg PO Q8H Qty: 20 0RF ibuprofen 600 mg tablet 600 mg PO Q6H PRN (Reason: fever or pain) Qty: 30 0RF No Action losartan 25 mg tablet 25 mg PO DAILY 30 Days Qty: 90 1RF (DME) pen needle, diabetic 32 gauge x 5/32 needle See Rx Instructions .Route Qty: 400 3RF Rx Instructions: for qid (DME) Ketone Urine Test Strip See Rx Instructions .ROUTE .MEDSUPPLY Qty: 25 1RF Rx Instructions: As directed for glucose over 250, nausea vomiting or illness t.i.d. albuterol sulfate [Ventolin HFA] 90 mcg/actuation HFA aerosol inhaler 2 puff inhalation Q6H PRN (Reason: shortness of breath or wheezing) Qty: 8.5 0RF Rx Instructions: Can make your heart race ibuprofen 600 mg tablet 600 mg PO Q6H PRN (Reason: fever or pain) Qty: 30 0RF gabapentin 600 mg tablet 600 mg PO BEDTIME fluoxetine 40 mg capsule 40 mg PO DAILY hydroxyzine HCl 10 mg tablet 10 mg PO BEDTIME PRN (Reason: Anxiety) clonazepam 1 mg tablet 1 mg PO BEDTIME PRN (Reason: Anxiety) tadalafil 5 mg tablet 5 mg PO DAILY 90 Days Qty: 90 3RF Rx Instructions: Take daily for bladder and erections tamsulosin 0.4 mg capsule 0.4 mg PO BEDTIME 90 Days Qty: 90 3RF glucose [Dex4 Glucose] 4 gram tablet,chewable 16 g PO Q15M MDD 16 tablets PRN (Reason: hypoglycemia) 30 Days Qty: 30 3RF Rx Instructions: every 15 minutes until symptoms of low blood sugar are controlled omeprazole 20 mg capsule,delayed release(DR/EC) 20 mg PO DAILY 90 Days Qty: 90 2RF (DME) pen needle, diabetic 32 gauge x 1/4 needle See Rx Instructions .ROUTE BID Qty: 100 Rx Instructions: As directed insulin degludec [Tresiba FlexTouch U-200] 200 unit/mL (3 mL) insulin pen 28 unit subcut BEDTIME Qty: 6 6RF pioglitazone 15 mg tablet 15 mg PO DAILY 30 Days Qty: 30 6RF insulin lispro [Admelog SoloStar U-100 Insulin] 100 unit/mL insulin pen See Rx Instructions subcut TID MDD 42 units 30 Days Qty: 15 11RF Rx Instructions: 80-150 10 units 151-200 12 units 201-300 14 units over 300 16 units subcutaneously 3 times a day; dapagliflozin propanediol [Farxiga] 5 mg tablet 5 mg PO QAM 90 Days Qty: 90 3RF Interventions: ED Discharge Assessment Last Done: 09/30/24 22:19 Discharge Date/Time: 09/30/24 22:28 Print Language: Gambian
--- OUTSIDE RECORDS SUMMARY | 2024-09-30 18:27 | XMS_ITS | Clinical Summary ---
Author Organization [address] [facility] Address [address] [place] [address] Phone Care Team Providers Care Service Vehicle Operator Name Role Phone Enmanuel Crowder NP Primary Care Provider [phone] Social History Tobacco Use Types Packs/Day Years Used Date Smoking Tobacco: Never Assessed Sex and Gender Information Value Date Recorded Sex Assigned at Not on file Legal Sex Male 8:42 AM EDT Gender Identity Not on file Sexual Orientation Not on file Plan of Treatment Upcoming Encounters Date Type Department Care Team ([facility] Contact Info) Description 11/01/2024 9:30 AM EDT Consult Orthopedic Surgery - [place] [address] [phone] Bg Sher DPM [address] [address] Health Maintenance Due Date Last Done Comments DTaP,Tdap,and Td Vaccines (1 - Tdap) 1980 Pneumococcal Vaccine: 50+ Ye ars (1 of 1 - PCV) 09/09/2011 Zoster Vaccines (1 of 2) 09/09/2011 COVID-19 Vaccine ( - 2023-2 5 season) 2023 Cholesterol Screening (Lipid Panel) 08/10/2024 Colorectal Cancer Screening: Colonoscopy 08/10/2024 Depression Screening 08/10/2024 HIV Screening 08/10/2024 Hepatitis C Screening 08/10/2024 Medicare Annual Wellness Visit 08/10/2024 Social Influencers of Health Screening 08/10/2024 Influenza Vaccine (Season Ended) 2024 RSV Immunization Adult Patie nts (1 - 1-dose 75+ series) 2036 HIB Vaccines Aged Out No longer eligi ble based on patient's age to complete this topic HPV Vaccines Aged Out No longer eligi ble based on patient's age to complete this topic Hepatitis A Vaccines Aged Out No long er eligible based on patient's age to complete this topic Hepatitis B Vaccines Aged Out No long er eligible based on patient's age to complete this topic IPV Vaccines Aged Out No longer eligi ble based on patient's age to complete this topic MMR Vaccines Aged Out No longer eligi ble based on patient's age to complete this topic Meningococcal ACWY Vaccine Aged Out N o longer eligible based on patient's age to complete this topic Meningococcal B Vaccine Aged Out No l onger eligible based on patient's age to complete this topic Pneumococcal Vaccine: Pediat rics (0 to 5 Years) and At-Risk Patients (6 to 64 Years) Aged Out No longer eligible b ased on patient's age to complete this topic RSV Immunization Patients Un gaudencio 20 months Aged Out No longer eligible b ased on patient's age to complete this topic Varicella Vaccines Aged Out No longer eligible based on patient's age to complete this topic Insurance * Guarantor: Jessica Wing Account Type Relation to Patient Date of Phone Billing Address Personal/Family Self 1960 [address] [place] [address] MEDICARE MEDICAID - [place] Care Teams Service Vehicle Operator Relationship Specialty Start Date End Date Enmanuel Crowder NP [address] [facility] [place], [place] PCP - General Family Medicine 08/10/24
--- OUTSIDE RECORDS SUMMARY | 2024-09-30 18:27 | XMS_ITS | Clinical Summary ---
Author Organization [facility] Address [address] [place] [address] Care Team Providers Care Water Restoration Technician Name Role Phone Unavailable Primary Care Provider Unavailabl e Source Comments PLEASE NOTE, if this patient is a minor, it may be UNLAWFUL to discuss sensitive information that is contained in these records (such as FAMILY PLANNING, MENTAL HEALTH or SUBSTANCE ABUSE) with the minor patient's parent or other person without the patient's specific authorization.[facility] Allergies Active Allergy Reactions Criticality Noted Date Comments Codeine Palpitations High 12/25/2014 Medications omega 3-dha-fish oil-epa 1,000 mg (120 mg-180 mg) capsuleIndications :Hyperlipemia Take 2 Caps by mouth 2 (two) times daily. 120 Cap 2 5 Active diclofenac sodium (VOLTAREN) [address] tabletIndications: Neck pain on right side Take 1 Tab by mouth 2 (two) times daily. Swallow whole. Do not crush or chew. 60 Tab 2 6 Active capsaicin (ICY HOT) 0.025 % patchIndications:N rashawn pain on right side Place 1 Patch onto the skin every 8 (eight) hours as needed for pain. Apply to most painful area. 9 Patch 2 6 Active hydrOXYzine HCl (ATARAX) 50 mg tabletIndications: Psychophysiologica l insomnia Take 1 Tab by mouth nightly at bedtime as needed (sleep) 30 Tab 5 7 Active FLUoxetine (PROZAC) 40 mg capsuleIndications :Anxiety Take 1 Cap by mouth once daily 30 Cap 5 7 Active omeprazole (PRILOSEC) 20 mg tabletIndications: Gastroesophageal reflux disease without esophagitis Take 20 mg by mouth once daily 30 Tab 2 7 Active clonazePAM (KLONOPIN) 0.5 mg tabletIndications: Anxiety Take 1 Tab by mouth 2 (two) times daily as needed for anxiety 60 Tab 1 7 Active amoxicillin-clavul anate (AUGMENTIN) 875-125 mg per tabletIndications: Bronchitis Take 1 Tab by mouth 2 (two) times daily 20 Tab 0 7 Active fluticasone-vilant grayson (BREO ELLIPTA) 200-25 mcg/dose dsdvIndications:Wh eezing Inhale 1 Applicator into the lungs once daily 60 Each 1 7 Active gabapentin (NEURONTIN) 300 mg capsule TK 1 C PO BID 3 7 Active polyethylene glycol-electrolyte s (NULYTELY) 420 gram solution DRINK 240 MLS PO Q 10 MINUTES 0 7 Active atorvastatin (LIPITOR) 40 mg tabletIndications: Mixed hyperlipidemia Take 1 Tab by mouth once daily 30 Tab 5 7 Active albuterol sulfate hfa 90 mcg/actuation inhalerIndications :Wheezing Inhale 2 Puffs into the lungs every 6 (six) hours as needed for wheezing 1 Inhaler 5 7 Active omeprazole (PRILOSEC) [address] capsule TAKE 1 CAPSULE BY MOUTH ONCE EVERY DAY 90 Cap 9 Active lisinopril-hydroch lorothiazide (PRINZIDE,ZESTORET IC) 10-12.5 mg per tabletIndications: Essential hypertension TAKE 1 TABLET BY MOUTH ONCE EVERY DAY 90 Tab 9 Active omeprazole (PRILOSEC) [address] capsuleIndications :Gastroesophageal reflux disease without esophagitis TAKE 1 CAPSULE BY MOUTH EVERY MORNING BEFORE BREAKFAST. DO NOT CRUSH OR CHEW 90 Cap 9 Active Active Problems Problem Noted Date Diagnosed Date Fracture of corpus cavernosum penis 09/24/2015 Overview (09/24/2015): [facility] Elevated liver function tests 12/25/2014 Overview (06/25/2016): Liver U/S 05/13/16, borderline ehcogenic. Mild nodularity increases suspicion for cirrhosis HTN (hypertension) Hyperlipemia GERD without esophagitis Major depression Hypoglycemia Anxiety Immunizations Immunization Administration Dates Next Due INFLUENZA, SEASONAL, INJECTABLE 02/24/2016,01/08 Family History Medical History Relation Name Comments Hypertension Father Diabetes Mother Hypertension Mother Relation Name Status Comments Father Mother Social History Tobacco Use Types Packs/Day Years Used Date Smoking Tobacco: Former Smokeless Tobacco: Never Alcohol Use Standard Drinks/Week Comments No 0 (1 standard drink = 0.6 oz pur e alcohol) Social Connections Answer Date Recorded Social Connections and Isolation 0 11/20/2018 Financial Resource Strain Answer Date R ecorded Financial Resource Strain 0 2018 Stress Answer Date Recorded Stress 0 11/20/2018 Physical Activity Answer Date Recorded Physical Activity 0 11/20/2018 Food Insecurity Answer Date Recorded Food 0 11/20/2018 Transportation Needs Answer Date Record ed Transportation 0 11/20/2018 Housing Stability Answer Date Recorded Housing 0 11/20/2018 Safety and Environment Answer Date Ronni rded Safety 0 11/20/2018 Utilities Answer Date Recorded Utilities 0 11/20/2018 Employment Answer Date Recorded Employment 0 11/20/2018 Sex and Gender Information Value Date Recorded Sex Assigned at Not on file Legal Sex Male 11:57 AM PDT Gender Identity Not on file Sexual Orientation Not on file Occupation Industry Job Start Date Job End Date unemployed Not on file Not on file Not on file Last Filed Vital Signs Vital Sign Reading Time Taken Comments Blood Pressure 120/78 10/05/2016 1:06 PM EDT Pulse 80 10/05/2016 1:06 PM EDT Temperature 36.6 C (97.9 F) 10/05/2016 1:06 PM EDT Respiratory Rate 20 10/05/2016 1:06 PM EDT Oxygen Saturation 97% 05/13/2016 2:42 PM EST Inhaled Oxygen Concentration - - Weight 83.5 kg (184 lb) 10/21/2016 1:36 PM EDT Height 172.7 cm (5' 8 ) 10/21/2016 1:36 PM EDT Body Mass Index 27.98 10/21/2016 1:36 PM EDT Plan of Treatment Not on file Insurance [place] - [place]
[2024-09-30 19:29] VITALS: BP 153/94; PULSE 76; RESP 19; TEMP 36.8; O2SAT 97
[2024-09-30] MEDS: Morphine Sulfate Immed Release 15 MG TABLET PO (19:37)
[2024-09-30 22:07] VITALS: BP 131/86; PULSE 68; RESP 18; TEMP 36.6; O2SAT 97
[2024-09-30 22:19] VITALS: BP 131/86; PULSE 68; RESP 18; TEMP 36.6; O2SAT 97
== END 2024-09-30 22:28 | disposition home or self-care (01) ==
PROVIDERS: Emergency Provider Internal Medicine; PCP Nurse Practitioner Family
DX: S22.089A Unspecified fracture of T11-T12 vertebra, initial encounter for closed fracture (principal); M54.50 Low back pain, unspecified; W10.9XXA Fall (on) (from) unspecified stairs and steps, initial encounter; Y93.9 Activity, unspecified; Y92.9 Unspecified place or not applicable; Y99.9 Unspecified external cause status; J45.909 Unspecified asthma, uncomplicated; E11.9 Type 2 diabetes mellitus without complications
CPT/HCPCS: 72100; 72131; 72170; 99283; 99284

== ENCOUNTER → 2024-09-30 18:54 | Outpatient (BNV) | payer MEDICARE, MEDICAID, SELFPAY | PROVIDERS: Emergency Provider Internal Medicine; PCP Nurse Practitioner Family; Visit Provider Radiology Diagnostic Radiology | DX: S22.080A Wedge compression fracture of T11-T12 vertebra, initial encounter for closed fracture (principal); M51.360 Other intervertebral disc degeneration, lumbar region with discogenic back pain only | CPT/HCPCS: 72100; 72131; 72170 ==

== ENCOUNTER 2024-10-23 07:36 | Outpatient (REF) | payer MEDICARE, MEDICAID, SELFPAY ==
--- NOTE | ~2024-10-23 | US_ITS ---
EXAMINATION: US THYROID CLINICAL INFORMATION: Nontoxic multinodular goiter. COMPARISON: 05/06/2023. TECHNIQUE: Linear transducer grayscale and color Doppler examination with attention to the region of the thyroid. FINDINGS: SIZE: Measurements of the thyroid lobes and nodules are given in sagittal, anteroposterior and transverse dimensions respectively. Right Thyroid Lobe: 5.8 x 2.7 x 2.2 cm, volume 17.7 mL. (Previously 15.0 mL). Parenchyma: The gland echotexture is normal. Thyroid vascularity is normal. Left Thyroid Lobe: 4.8 x 2.0 x 1.9 cm, volume 9.2 mL. (Previously 7.8 mL). Parenchyma: The gland echotexture is normal. Thyroid vascularity is normal. Isthmus: 0.5 cm in maximum AP dimension. Estimated total number of nodules greater than or equal to 1 cm: 0. Aquatic Centre Manager nodules are described as follows: 1. Location: Right mid to lower pole. Size: 0.7 x 0.5 x 0.7 cm, volume 0.1 mL. (Previously 0.6 x 0.4 x 0.7 cm). Nodule characteristics: Composition: Spongiform (0). ACR TI-RADS total points: 0 ACR TI-RADS category: 1 2. Subcentimeter colloid cyst in the left midpole. TR category 1. NODES: No lymphadenopathy is seen in the tissue surrounding the thyroid gland. US/US thyroid IMPRESSION: 1. There is a 0.7 cm TR category 1 nodule in the right mid to lower pole. No follow-up recommended. 2. There is a subcentimeter colloid cyst (TR category 1) in the left midpole. No follow-up recommended. 3. Remainder of the thyroid parenchyma is normal. ACR TI-RADS RECOMMENDATION REFERENCE: Ultrasound-guided fine-needle aspiration, followup ultrasound, no further follow up. * TR1 (0 point) and TR2 (2 points): No FNA or follow up. Electronically signed by: Akhil Miguel MD 10/23/2024 09:21 AM EDT
--- OUTSIDE RECORDS SUMMARY | 2024-10-23 07:38 | XMS_ITS | Clinical Summary ---
Author Organization 175 [facility] Address [address] [place] [address] Phone Care Team Providers Care Outreach Director Name Role Phone Enmanuel Crowder NP Primary Care Provider [phone] Social History Tobacco Use Types Packs/Day Years Used Date Smoking Tobacco: Never Assessed Sex and Gender Information Value Date Recorded Sex Assigned at Not on file Legal Sex Male 8:42 AM EDT Gender Identity Not on file Sexual Orientation Not on file Plan of Treatment Upcoming Encounters Date Type Department Care Team ([facility] Contact Info) Description 11/01/2024 9:30 AM EDT Consult Orthopedic Surgery - [place] [id number] [phone] Bg Sher, SUE [address] [address] Health Maintenance Due Date Last Done Comments DTaP,Tdap,and Td Vaccines (1 - Tdap) 1980 Pneumococcal Vaccine: 50+ Ye ars (1 of 1 - PCV) 09/09/2011 Zoster Vaccines (1 of 2) 09/09/2011 COVID-19 Vaccine ( - 2023-2 5 season) 2023 Depression Screening 03/29/2024 Cholesterol Screening (Lipid Panel) 08/10/2024 Colorectal Cancer Screening: Colonoscopy 08/10/2024 HIV Screening 08/10/2024 Hepatitis C Screening 08/10/2024 Medicare Annual Wellness Visit 08/10/2024 Social Influencers of Health Screening 08/10/2024 Influenza Vaccine (#1) 2024 RSV Immunization Adult Patie nts (1 [...] Billing Address Personal/Family Self 1960 [address] [place] [address] MEDICARE MEDICAID - [place] Care Teams Outreach Director Relationship Specialty Start Date End Date Enmanuel Crowder NP [address] [place], [place] PCP - General Family Medicine 08/10/24
--- OUTSIDE RECORDS SUMMARY | 2024-10-23 07:38 | XMS_ITS | Clinical Summary ---
Author Organization [facility] Address [address] [place] [address] Care Team Providers Care Pleating Machine Operator Name Role Phone Unavailable Primary Care [...] Plan of Treatment Not on file Insurance [place] - [place]
--- OUTSIDE RECORDS SUMMARY | 2024-10-23 07:38 | XMS_ITS | Encounter Summary ---
Author Organization [facility] Address [address] [facility] [address] [place] [address] Care Team Providers Care Oral Health Therapist Name Role Phone Aaron Payal RUANO Primary Care Provider [phone] Neptali Palomo DMD Unavailable [phone] Reason for Visit * Reason Comments Med Refill Encounter Details Date Type Department Care Team (Late st Contact Info) Description 10/20/2022 Refill [facility] MEDICINE [address] [place], [place] [phone] [facility] [address] [place], [place] [phone] Social History Tobacco Use Types Packs/Day Years [...] Care Team (Late st Contact Info) Description 04/20/2025 2:00 PM EST Office Visit [facility] CHC ADULT DENTAL [address] [place] [address] Larry Hopper documented as of this encounter Visit Diagnoses Not on filedocumented in this encounter Additional Health Concerns Assessment Noted Time PHQ-9 Depression Total Score: 0 08/05/19 23 2:13 PM EDT documented as of this encounter Care Teams Oral Health Therapist Relationship Specialty Start Date End Date Payal Walker ANP [address] [place] [address] PCP - General Family Medicine 11/20/21 08/04/23 Neptali Palomo DMD [address] [place] [phone] Dentist 05/18/24 documented as of this encounter
== END 2024-10-23 07:37 | disposition home or self-care (01) ==
LOC: HO.US 07:36
PROVIDERS: PCP Nurse Practitioner Family; Visit Provider Nurse Practitioner Adult Health
DX: E04.2 Nontoxic multinodular goiter (principal)
CPT/HCPCS: 76536

== ENCOUNTER → 2024-10-23 07:38 | Outpatient (BNV) | payer MEDICARE, MEDICAID, SELFPAY | PROVIDERS: PCP Nurse Practitioner Family; Visit Provider Radiology Diagnostic Radiology | DX: E04.2 Nontoxic multinodular goiter (principal) | CPT/HCPCS: 76536 ==

== ENCOUNTER 2024-10-31 10:19 | Outpatient (AMB) | payer OTHER, SELFPAY ==
--- NOTE | 2024-10-31 10:41 | MHC.OFFVIS ---
Vital Signs 10/31/24 10:42 Height 5 ft 8 in Weight 184 lb 11.958 oz BMI 28.1 BP 100/70 Blood Pressure Location Rt brachial Position Sitting Pulse 82 Pulse Source Pulse Oximeter Pulse Oximetry (%) 95 Oxygen Delivery Method Room Air Intake Visit Reasons: T2DM Intake Note: Patient present today to follow up on Type 2 Diabetes Mellitus. Patient receives Mindframe Agatha 3 supplies through: [employer] Last Diabetic Eye exam: Patient reports some time last fall Last Podiatry Visit: Does not see a Casing Machine Operator Random Glucose: 112 mg/dl HgA1C: 7.3% 10/31/2024 Juvenile Officer Required: Yes Juvenile Officer Language: Software Test Technician Services: Juvenile Officer Present Ju[place] Officer [place] [facility] [place] Information Interpreted: non-clinical & clinical Accompanied by: Self / Same As Patient Allergies codeine (CODEINE) Allergy (Intermediate, Verified 10/31/24 10:43) TACHYCARDIA Medication List - Last Reconciled 10/31/24 by Isidoro Garcia MD acetone (urine) test (Ketone Urine Test strips) As directed for glucose over 250, nausea vomiting or illness t.i.d. Admelog SoloStar U-100 Insulin (insulin lispro) 80-150 10 units 151-200 12 units 201-300 14 units over 300 16 units subcutaneously 3 times a day; 30 days MDD 42 units NS albuterol sulfate 90 mcg/actuation (Ventolin HFA) 2 puffs inhalation Q6H PRN clonazepam 1 mg PO BEDTIME PRN cyclobenzaprine 10 mg PO Q8H dapagliflozin propanediol (Farxiga) 5 mg PO QAM 90 days fluoxetine 40 mg PO DAILY gabapentin 600 mg PO BEDTIME glucose (Dex4 Glucose) 16 grams (4 x 4 gram) PO Q15M PRN 30 days MDD 16 tablets hydroxyzine HCl 10 mg PO BEDTIME PRN ibuprofen 600 mg PO Q6H PRN ibuprofen 600 mg PO Q6H PRN losartan 25 mg PO DAILY 30 days omeprazole 20 mg PO DAILY 90 days oxycodone 5 mg PO Q6H PRN pen needle, diabetic As directed pen needle, diabetic for qid NS pioglitazone 15 mg PO DAILY 30 days tadalafil 5 mg PO DAILY 90 days tamsulosin 0.4 mg PO BEDTIME 90 days Tresiba FlexTouch U-200 (insulin degludec) 28 units (0.14 mL) subcut BEDTIME NS HPI Comments Details: This is a 64-year-old male with a past medical history of pancreatitis, 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 The patient last saw Karla Berger NP on 08/29/24 He has met with the inclusion paraeducator to discuss going on an insulin pump. He has met with chief operator reformer and feels that he would be able to carbohydrate g count with the resources she gave him. He is interested in an Omnipod or ilet pump. He was previously on Trulicity which was discontinued secondary to pancreatitis. Metformin caused GI side effects Patient was previously on Jardiance which worked very well, and he did not have side effects, but his insurance had stopped covering it at 1 point. Denies history of infections Freestyle agatha sensor 3 average glucose: To 13 14 day continuous glucose sensor report reviewed Glucose Management indicator 7.5 % Time CGM active 93 % TIme in ranges: 7 % very high (above 250) 39 % high (181-250) 54 % in range (70-180] 0 % low (69-55) 0 % very low (below 54) 32.2% Glucose variability (target <36%) Interpretation of CGMS declining blood sugars overnight with increase in point of care around mid afternoon No lows on report but he does not report hypoglycemia Current diabetes medications: tresiba 28 units at bedtime Humalog T.i.d. with meals 80-150 8 units 151-200 10 units 201-300 12 units Above 300 14 units farxiga 5mg pioglitizone 15mg low dose as patient has a history of previous CVA and this may reduce the risk. Patient is not having any juice or soda. He does not smoke. He does not drink alcohol. He has a lot of salad and some rice in his diet. Avoids pasta. Was walking in the past but stopped due to cold weather. His weight is up 15 lb since the fall. Complications: Diabetic eye exam in 01/2024 . No known retinopathy. Patient has nephropathy ( microalbuminuria). 03/23/2024 eGFR>60 08/09/2023 microalbumin 54.0 he is now being [place] [facility] [place] has a history of CVA. [facility] Medical History Palpitations Pancreatitis Arthritis GERD (gastroesophageal reflux disease) CVA (cerebral vascular accident) Microalbuminuric diabetic nephropathy Type II diabetes with correction use of insulin Erectile dysfunction Vitamin D deficiency Multinodular thyroid Other and unspecified hyperlipidemia Essential hypertension Aortic valve calcification Surgical History History of esophagogastroduodenoscopy (EGD) H/O colonoscopy Family History Father Stroke Brother Stroke Mother Diabetes Social History Household Members: Spouse Housing: House Alcohol intake: never Patient Tobacco Use Status: Former Tobacco user e-Cigarette/Vaping Use: Never Used service: No Current occupational status: disabled Cognitive needs: No Hearing needs: No Vision needs: Yes Physical Exam Vital Signs: Last Vital Signs Pulse 82 10/31/24 10:42 BP 100/70 10/31/24 10:42 Pulse Ox 95 10/31/24 10:42 Oxygen Delivery Method Room Air 10/31/24 10:42 BMI result Body Mass Index 28.1 Absence of Cushingoid features. Absence of acromegalic features. Neck exam reveals nl size thyroid about 15 gms. No thyroid nodules palpable. No carotid bruits present. Lungs CTA. Heart S1 S2, Reg R/R. No M/R/ G. Skin exam reveals absence of vitiligo or acanthosis nigricans. Abdominal exam reveals Soft NT/ND with NA BS. No organomegaly present. Neck Other: . Extrem Other: Visual exam of foot performed. No ulcerations or open lesions. No onchomycosis, no callouses.Pulses 2 + distally Sensation intact to monofilament exam. Vibratory sensation sensed is intact with 128 Hz tuning fork Results AMB Hemoglobin A1c AMB Hemoglobin A1c 7.3 % Last Edit by IDANIA Mccurdy on 10/31/24 11:01 Results Reviewed Results Reviewed: Laboratory Last Values Glucose (Clinic) 112 mg/dL (60-115) 10/31/24 10:49 Hgb A1c (Clinic) 7.3 % (4.0-6.0) H 10/31/24 10:52 Assessment & Plan Assessment & Plan (1) Type II diabetes with correction use of insulin: Code(s): E11.9 - Type 2 diabetes mellitus without complications; Z79.4 - MCC (current) use of insulin Category: Medical Qualifiers: Diabetes mellitus complication status: with kidney complications Diabetes mellitus complication detail: with nephropathy Qualified Code(s): E11.21 - Type 2 diabetes mellitus with diabetic nephropathy; Z79.4 - MCC (current) use of insulin Plan: This is a 63-year-old male with a history of type 2 diabetes the setting of pancreatitis being treated with basal-bolus insulin and Farxiga and pioglitazone withfair but improved glycemic control with known microvascular complications of macrovascular complications namely nephropathy and CVA. The plan is to increase the Humalog to to start at 10 units prior to dinner. He will follow up with the conservation educator to continue to pursue obtaining an Omnipod pump. We will check lipid profile Orders: Orders AMB Hemoglobin A1c Today E11.8 - Type 2 diabetes mellitus with unspecified complications Lipid Panel Today E11.21 - Type 2 diabetes mellitus with diabetic nephropathy, Z79.4 - termite treater helper (current) use of insulin Coding Level of Care Code Est Pt Level 4 (98794) Diagnoses Type 2 diabetes mellitus with diabetic nephropathy, with long-term current use of insulin E11.21; Z79.4 Diabetes mellitus complication status: with kidney complications Diabetes mellitus complication detail: with nephropathy
[2024-10-31 10:42] VITALS: BP 100/70; PULSE 82; O2SAT 95; BMI 28.1
[2024-10-31 10:54] LABS: Glucose, Whole Blood 112 mg/dL (60-115)
--- OUTSIDE RECORDS SUMMARY | 2024-10-31 10:56 | XMS_ITS | Encounter Summary ---
Author Organization [facility] Address [address] [facility] 7t [place] [address] Care Team Providers Care Healthcare Business Analyst Name Role Phone Aaron Payal RUANO Primary Care Provider [phone] Neptali Palomo DMD Unavailable [phone] Reason for Visit * Reason Comments Med Refill Encounter Details Date Type Department Care Team (Late st Contact Info) Description 10/20/2022 Refill [facility] MEDICINE [address] [place], [place] [phone] [facility] [address] [place], [place] [phone] Social History Tobacco Use Types Packs/Day Years [...] Description 04/20/2025 2:00 PM EST Office Visit [facility] CHC ADULT DENTAL [address] [place] [address] Larry Hopper documented as of this encounter Visit Diagnoses Not on filedocumented in this encounter Additional Health Concerns Assessment Noted Time PHQ-9 Depression Total Score: 0 08/05/19 23 2:13 PM EDT documented as of this encounter Care Teams Healthcare Business Analyst Relationship Specialty Start Date End Date Payal Walker ANP [address] [place] [address] PCP - General Family Medicine 11/20/21 08/04/23 Neptali Palomo DMD [address] [place] [id number] Dentist 05/18/24 documented as of this encounter
--- OUTSIDE RECORDS SUMMARY | 2024-10-31 10:56 | XMS_ITS | Clinical Summary ---
Author Organization 175 [facility] Address [address] [place] [address] Phone Care Team Providers Care Construction Assistant Name Role Phone Enmanuel Crowder NP Primary Care Provider Social History Tobacco Use Types Packs/Day Years Used Date Smoking Tobacco: Never Assessed Sex and Gender Information Value Date Recorded Sex Assigned at Not on file Legal Sex Male 8:42 AM EDT Gender Identity Not on file Sexual Orientation Not on file Plan of Treatment Upcoming Encounters Date Type Department Care Team ([facility] Contact Info) Description 11/01/2024 9:30 AM EDT Consult Orthopedic Surgery - [place] [address] [phone] Bg Sher, SUE [address] [address] Health Maintenance Due Date Last Done Comments [...] to complete this topic Insurance * Guarantor: Shayy Goss Account Type Relation to Patient Date of Phone Billing Address Personal/Family Self 1960 [address] [place] [address] MEDICARE MEDICAID - [place] Care Teams Construction Assistant Relationship Specialty Start Date End Date Enmanuel Crowder NP [address] [place], [place] PCP - General Family Medicine 08/10/24
--- OUTSIDE RECORDS SUMMARY | 2024-10-31 10:56 | XMS_ITS | Clinical Summary ---
Author Organization [facility] Address [address] [place] [address] Care Team Providers Care Closing Coordinator Name Role Phone Unavailable Primary Care Provider [...] penis 09/24/2015 Overview (09/24/2015): [facility] Elevated liver function tests 12/25/2014 Overview (06/25/2016): [...] Plan of Treatment Not on file Insurance [place]
== END 2024-10-31 11:55 | disposition home or self-care (01) ==
PROVIDERS: PCP Nurse Practitioner Family; Visit Provider Internal Medicine Endocrinology, Diabetes & Metabolism
DX: E11.21 Type 2 diabetes mellitus with diabetic nephropathy (principal); Z79.4 Long term (current) use of insulin; E11.8 Type 2 diabetes mellitus with unspecified complications
CPT/HCPCS: 99214

== ENCOUNTER → 2024-10-31 10:19 | Outpatient (BNVA) | payer OTHER, SELFPAY | PROVIDERS: PCP Nurse Practitioner Family; Visit Provider Internal Medicine Endocrinology, Diabetes & Metabolism | DX: E11.21 Type 2 diabetes mellitus with diabetic nephropathy (principal) | CPT/HCPCS: 82947; 83036; 99212 ==

== ENCOUNTER → 2024-11-08 11:44 | Outpatient (BNV) | payer OTHER, SELFPAY | PROVIDERS: PCP Nurse Practitioner Family; Visit Provider Family Medicine | DX: K86.9 Disease of pancreas, unspecified (principal) | CPT/HCPCS: 74183 ==

== ENCOUNTER 2024-11-08 11:51 | Outpatient (REF) | payer OTHER, SELFPAY ==
--- NOTE | ~2024-11-08 | MR_ITS ---
CLINICAL HISTORY: K86.2 - Cyst of pancreas MR abdomen with and without gadolinium Comparison: CT/SR - SPINE LUMBAR_SPINE (ADULT) - 09/30/24 20:16 EDT MR - MR ABDOMEN WO/W CON - 07/23/24 12:03 EDT MR/MS/SR - MR ABDOMEN WO/W CON - 05/25/24 16:14 EST MR/SR - MR ABDOMEN WO/W CON - 02/18/24 09:[address]/SR - CT ABDOMEN PELVIS W IV CON - 04/15/22 23:54 EST Findings: Right renal cyst measuring 1.4 cm. Heterogeneous lesion in the pancreatic body measuring 2 cm continues to decrease in size (previously measured 2.6 cm on most recent prior exam and 6.3 x 6.4 x 6.5 cm on exam from 02/01/2024). This may be due to pancreatic walled-off necrosis or complex pseudocyst. There is pancreatic atrophy. Pancreatic duct is within the upper limits of normal for caliber measuring 0.3 cm in diameter in the pancreatic body. No ascites. Similar appearance of previously noted compression fracture of T12 with approximately 25% height loss. There is associated edema. Multilevel degenerative changes. IMPRESSION: Heterogeneous lesion in the pancreatic body measuring 2 cm continues to decrease in size (previously measured 2.6 cm on most recent prior exam and 6.3 x 6.4 x 6.5 cm on exam from 02/01/2024). This may be due to pancreatic walled-off necrosis or complex pseudocyst. Continued follow-up is recommended. This document has been electronically signed by: Felice Hernandez DO on 11/09/2024 09:59:17
--- OUTSIDE RECORDS SUMMARY | 2024-11-08 12:43 | XMS_ITS | Encounter Summary ---
Author Organization [employer] Address [address] [facility] 7t [place] [address] Care Team Providers Care Infrastructure Technician Name Role Phone Aaron Payal RUANO Primary Care Provider [phone] Neptali Palomo DMD Unavailable [phone] Reason for Visit * Reason Comments Med Refill Encounter Details Date Type Department Care Team (Late st Contact Info) Description 10/20/2022 Refill [facility] MEDICINE [address] [place], [place] [phone] [facility] [address] [place], [place] [phone] Social History Tobacco Use Types Packs/Day Years [...] Description 04/20/2025 2:00 PM EST Office Visit [facility] CHC ADULT DENTAL [address] [place] [address] Larry Hopper documented as of this encounter Visit Diagnoses Not on filedocumented in this encounter Additional Health Concerns Assessment Noted Time PHQ-9 Depression Total Score: 0 08/05/19 23 2:13 PM EDT documented as of this encounter Care Teams Infrastructure Technician Relationship Specialty Start Date End Date Payal Walker ANP [address] [place] [address] PCP - General Family Medicine 11/20/21 08/04/23 Neptali Palomo DMD [address] [place] [address] Dentist 05/18/24 documented as of this encounter
--- OUTSIDE RECORDS SUMMARY | 2024-11-08 12:44 | XMS_ITS | Clinical Summary ---
Author Organization [facility] Address [address] [place] [address] Care Team Providers Care Hat And Cap Drying Room Attendant Name Role Phone Unavailable Primary Care Provider [...] penis 09/24/2015 Overview (09/24/2015): [facility] [...] Plan of Treatment Not on file Insurance [place] - [place]
== END 2024-11-08 11:52 | disposition home or self-care (01) ==
LOC: HO.MRI 11:51
PROVIDERS: PCP Nurse Practitioner Family; Visit Provider Nurse Practitioner Family
DX: K86.2 Cyst of pancreas (principal); K86.3 Pseudocyst of pancreas
CPT/HCPCS: 74183; A9585

== ENCOUNTER 2024-11-15 09:48 | Outpatient (AMB) | payer MEDICARE, MEDICAID, SELFPAY ==
--- NOTE | 2024-11-15 10:38 | A.OFFVIS_ITS ---
Intake Intake Visit Reasons: 60 mins Refrigerating Technician Required: Yes Refrigerating Technician Language: Tube Fitter Name: [facility] [place] Accompanied by: Self / Same As Patient Allergies codeine (CODEINE) Allergy (Intermediate, Verified 10/31/24 10:43) TACHYCARDIA [facility] Medical History Palpitations Pancreatitis Arthritis GERD (gastroesophageal reflux disease) CVA (cerebral vascular accident) Microalbuminuric diabetic nephropathy Type II diabetes with long filler cigar roller machine use of insulin Erectile dysfunction Vitamin D deficiency Multinodular thyroid Other and unspecified hyperlipidemia Essential hypertension Aortic valve calcification Surgical History History of esophagogastroduodenoscopy (EGD) H/O colonoscopy Family History Father Stroke Brother Stroke Mother Diabetes Social History Household Members: Spouse Housing: House Alcohol intake: never Patient Tobacco Use Status: Former Tobacco user e-Cigarette/Vaping Use: Never Used service: No Current occupational status: disabled Cognitive needs: No Hearing needs: No Vision needs: Yes Assessment & Plan Assessment & Plan (1) Type 2 diabetes mellitus with unspecified complications: Code(s): E11.8 - Type 2 diabetes mellitus with unspecified complications Plan: Personal Continuous Glucose Monitor: Patients CGM information reviewed, Pt uses Otto Clave 3 with reader Patient reports that when his glucose level is high he is using sliding scale, he does not always eat after taking Humalog when his glucose levels are high. Reviewed with patient action of Humalog, explained to him that it is important to eat if using sliding scale, the sliding scale is designed to be taken before meals. Signs and symptoms of low blood sugar (happen quickly) Each person's reaction to low blood sugar is different. Learn your own signs and symptoms of when your blood sugar is low. Taking time to write these symptoms down may help you learn your own symptoms of when your blood sugar is low. From milder, more common indicators to most severe, signs and symptoms of low blood sugar include: Feeling shaky Being nervous or anxious Sweating, chills and clamminess Irritability or impatience Confusion Fast heartbeat Feeling lightheaded or dizzy Hunger Nausea Color draining from the skin (pallor) Feeling Sleepy Feeling weak or having no energy Blurred/impaired vision Tingling or numbness in the lips, tongue, or cheeks Headaches Coordination problems, clumsiness Hypoglycemia or blood glucose under 70 use the rule of 15's: If you have your blood glucose meter test your blood glucose, if you do not have your meter still follow below instruction: Keep quick-sugar foods with you at all times.? Take 15 grams of fast acting carbohydrates. Examples are 4 ounces of fruit juice or regular soda pop, 8 ounces fat-free milk, 1 tablespoon of table sugar, honey or corn syrup, jam, one miniature box of raisins, 7-8 gumdrops or Life Savers candy, 4 glucose tablets, and glucose gel.? Retest blood glucose in 15 minutes, if blood glucose is still under 80 ,repeat rule of 15's. If blood glucose is under 50, take 30 grams of fast acting carbohydrates If you are having hypoglycemia, or insulin reaction, more that a few times a week, call MD or aircraft mechanic structures Patient has decided to start insulin pump therapy, he will be using the iLet with Agatha 3+ Patient instructed to only announce meals that have carbohydrates For the 1st 7 days: Eat meals that have usual amount of carbs for you in announce them as usual Wait at least 4 hours between eating meals with carbs and announcing again If you are eating between meals, low carb snacks are the best option. Announce meal right away when you start eating If you forget and is more than 30 minutes since started eating do not announce patient will see aircraft mechanic structures 1 more time before initiating insulin pump therapy Patient able to insert sensor independently at home without issue.? Portions of this note were created using voice recognition software, please excuse any words or phrases that may have been misinterpreted. Patient Instructions: Follow-up with aircraft mechanic structures in 1 month Coding Level of Care Code Est Pt Level 1 (01398) Diagnoses Type 2 diabetes mellitus with unspecified complications E11.8
--- OUTSIDE RECORDS SUMMARY | 2024-11-15 10:39 | XMS_ITS | Encounter Summary ---
Author Organization [employer] Address [address] [facility] 7t [place] [address] Care Team Providers Care Electric Meter Inspector Name Role Phone Aaron Payal RUANO Primary Care Provider [phone] Neptali Palomo DMD Unavailable [phone] Reason for Visit * Reason Comments Med Refill Encounter Details Date Type Department Care Team (Late st Contact Info) Description 10/20/2022 Refill [facility] MEDICINE [address] [place], [place] [phone] [facility] 230 [place], [place] [phone] Social History Tobacco Use Types Packs/Day Years [...] Description 04/20/2025 2:00 PM EST Office Visit [facility] CHC ADULT DENTAL [address] [place] [address] Larry Hopper documented as of this encounter Visit Diagnoses Not on filedocumented in this encounter Additional Health Concerns Assessment Noted Time PHQ-9 Depression Total Score: 0 08/05/19 23 2:13 PM EDT documented as of this encounter Care Teams Electric Meter Inspector Relationship Specialty Start Date End Date Payal Walker ANP 230 [place] [address] PCP - General Family Medicine 11/20/21 08/04/23 Neptali Palomo DMD [address] [place] [address] Dentist 05/18/24 documented as of this encounter
--- OUTSIDE RECORDS SUMMARY | 2024-11-15 10:39 | XMS_ITS | Clinical Summary ---
Author Organization [facility] Address [address] [place] [address] Care Team Providers Care Senior Environmental Engineer Name Role Phone Unavailable Primary Care Provider [...] penis 09/24/2015 Overview (09/24/2015): [facility] group of [facility] Elevated liver function tests 12/25/2014 Overview [...] Plan of Treatment Not on file Insurance [place] - [place]
== END 2024-11-15 10:44 | disposition home or self-care (01) ==
LOC: HO.ENCR 09:49
PROVIDERS: PCP Nurse Practitioner Family; Visit Provider Registered Nurse Diabetes Educator
DX: E11.8 Type 2 diabetes mellitus with unspecified complications (principal)

== ENCOUNTER → 2024-11-15 09:48 | Outpatient (BNVA) | payer OTHER, SELFPAY | PROVIDERS: PCP Nurse Practitioner Family; Visit Provider Registered Nurse Diabetes Educator | DX: E11.8 Type 2 diabetes mellitus with unspecified complications (principal); Z46.81 Encounter for fitting and adjustment of insulin pump | CPT/HCPCS: 99211 ==

== ENCOUNTER 2024-11-16 12:17 | Outpatient (REF) | payer OTHER, SELFPAY ==
[2024-11-16 13:56] LABS: Cholesterol 181 mg/dL (<200); HDL Cholesterol 40 mg/dL (>40); Triglycerides 82 mg/dL (<150)
== END 2024-11-16 12:18 | disposition home or self-care (01) ==
LOC: HO.HMGCLDS 12:17
PROVIDERS: PCP Nurse Practitioner Family; Visit Provider Internal Medicine Endocrinology, Diabetes & Metabolism
DX: E11.21 Type 2 diabetes mellitus with diabetic nephropathy (principal); Z79.4 Long term (current) use of insulin
CPT/HCPCS: 36415; 80061

== ENCOUNTER 2024-11-24 06:35 | Outpatient (REF) | payer OTHER, SELFPAY ==
--- OUTSIDE RECORDS SUMMARY | 2024-11-24 06:38 | XMS_ITS | Encounter Summary ---
Author Organization [employer] Address [address] [facility] 7t [place] [address] Care Team Providers Care Unmanned Aircraft Systems Roboticist Name Role Phone Aaron Payal RUANO Primary Care Provider [phone] Neptali Palomo DMD Unavailable [phone] Reason for Visit * Reason Comments Med Refill Encounter Details Date Type Department Care Team (Late st Contact Info) Description 10/20/2022 Refill [facility] MEDICINE [address] [place], [place] [phone] [facility] [address] [place], [place] [phone] Social History Tobacco Use Types Packs/Day Years [...] Description 04/20/2025 2:00 PM EST Office Visit [facility] CHC ADULT DENTAL [address] [place] [address] Larry Hopper documented as of this encounter Visit Diagnoses Not on filedocumented in this encounter Additional Health Concerns Assessment Noted Time PHQ-9 Depression Total Score: 0 08/05/19 23 2:13 PM EDT documented as of this encounter Care Teams Unmanned Aircraft Systems Roboticist Relationship Specialty Start Date End Date Payal Walker ANP [address] [place] [address] PCP - General Family Medicine 11/20/21 08/04/23 Neptali Palomo DMD [address] [place] [address] Dentist 05/18/24 documented as of this encounter
--- OUTSIDE RECORDS SUMMARY | 2024-11-24 06:38 | XMS_ITS | Encounter Summary ---
Author Organization [employer] [facility] Address [address] [place] [address] 7 [place] [address] Care Team Providers Care Electrical Maintenance Worker Name Role Phone Payal Walker Primary Care Provider [phone] Neptali Palomo DMD Unavailable [phone] Encounter Details Date Type Department Care Team (Latest Contact Info) Description 10/03/2018 Abstract [facility] CONVERSIONS Dental, Provider, DDS Social [...] Description 04/20/2025 2:00 PM EST Office Visit [facility] CHC ADULT DENTAL [address] [place] [address] Larry Hopper documented as of this encounter Visit Diagnoses Not on filedocumented in this encounter Care Teams Electrical Maintenance Worker Relationship Specialty Start Date End Date Payal Walker ANP 230 [place] [address] PCP - General Family Medicine 11/20/21 08/04/23 Neptali Palomo DMD [address] [place] [address] Dentist 05/18/24 documented as of this encounter
--- OUTSIDE RECORDS SUMMARY | 2024-11-24 06:38 | XMS_ITS | Encounter Summary ---
Author Organization [employer] Address [address] [facility] 7t [place] [address] Care Team Providers Care Manager [employer] Retail Name Role Phone Walker Payal RUANO Primary Care Provider [phone] Neptali Palomo DMD Unavailable [phone] Reason for Visit * Reason Comments Med Refill Encounter Details Date Type Department Care Team ([facility] st Contact Info) Description 06/25/2023 Refill [facility] MEDICINE 230 [place], [place] [phone] Siena Greenwood MD [address] [place], [place] [phone] GERD without esophagitis Social History Tobacco Use [...] Description 04/20/2025 2:00 PM EST Office Visit [facility] CHC ADULT DENTAL 505 [place] [address] Larry Hopper documented as of this encounter Visit Diagnoses Diagnosis GERD without esophagitis Esophageal reflux documented in this encounter Additional Health Concerns Assessment Noted Time PHQ-9 Depression Total Score: 0 08/05/19 2:13 PM EDT documented as of this encounter Care Teams Manager [employer] Relationship Specialty Start Date End Date Payal Walker ANP [address] [place] [address] PCP - General Family Medicine 11/20/21 08/04/23 Neptali Palomo DMD [address] [place] [address] Dentist 05/18/24 documented as of this encounter
--- OUTSIDE RECORDS SUMMARY | 2024-11-24 06:38 | XMS_ITS | Encounter Summary ---
Author Organization [employer] Address [address] [facility] 7t [place] [address] Care Team Providers Care Cloth Piecer Name Role Phone Walker Payal RUANO Primary Care Provider [phone] Neptali Palomo DMD Unavailable [phone] Encounter Details Date Type Department Care Team (Late st Contact Info) Description 02/16/2023 Abstract [facility] MEDICINE 230 [place], [place] [phone] Mary Kate Emmanuel Social History Tobacco Use [...] Description 04/20/2025 2:00 PM EST Office Visit [facility] CHC ADULT DENTAL [address] [place] [address] Larry Hopper documented as of this encounter Procedures Procedure Name Priority Date/Time Associated Diagnosis Comments COLONOSCOPY Routine 05/01/2016 documented in this encounter Results * Hm Colonoscopy (05/01/2016) Colonoscopy Normal Normal Narrative Mary Kate Emmanuel - 05/01/2016 Repeat in 10 years us Historical Provider HEALTH MAINTENANCE Final Result documented in this encounter Visit Diagnoses Not on filedocumented in this encounter Additional Health Concerns Assessment Noted Time PHQ-9 Depression Total Score: 0 08/05/19 23 2:13 PM EDT documented as of this encounter Care Teams Cloth Piecer Relationship Specialty Start Date End Date Payal Walker ANP 230 [place] [address] PCP - General Family Medicine 11/20/21 08/04/23 Neptali Palomo DMD [address] [place] [address] Dentist 05/18/24 documented as of this encounter
--- OUTSIDE RECORDS SUMMARY | 2024-11-24 06:38 | XMS_ITS | Clinical Summary ---
Author Organization [facility] Address [address] [place] [address] Care Team Providers Care Meat Smoker Name Role Phone Unavailable Primary Care Provider [...] penis 09/24/2015 Overview (09/24/2015): [facility] group of [facility] [...] Plan of Treatment Not on file Insurance [place]ARE - [place]
--- OUTSIDE RECORDS SUMMARY | 2024-11-24 06:38 | XMS_ITS | Encounter Summary ---
Author Organization [employer] Address [address] [facility] 7t [place] [address] Care Team Providers Care Oxidation Engineer Name Role Phone Neptali Palomo DMD Unavailable [phone] Reason for Visit * Reason Comments Med Refill Encounter Details Date Type Department Care Team (Late st Contact Info) Description 10/22/2023 Refill [facility] MEDICINE 230 [place], [place] [phone] Payal Walker, ANP 230 [place], [place] [phone] Type 2 diabetes mellitus with hyperlipidemia ([facility]/HCC) ([facility]) Social History Tobacco [...] Description 04/20/2025 2:00 PM EST Office Visit [facility] ADULT DENTAL [address] [place] [address] Larry Hopper documented as of this encounter Visit Diagnoses Diagnosis Type 2 diabetes mellitus with hyperlipidemia (CMS/HCC) (CMS/HCC) documented in this encounter Additional Health Concerns Assessment Noted Time PHQ-9 Depression Total Score: 0 08/05/19 2:13 PM EDT documented as of this encounter Care Teams Oxidation Engineer Relationship Specialty Start Date End Date Neptali Palomo DMD [address] [place] [address] Dentist 05/18/24 documented as of this encounter
--- OUTSIDE RECORDS SUMMARY | 2024-11-24 06:38 | XMS_ITS | Encounter Summary ---
Author Organization [employer] Address [address] [facility] 7t [place] [address] Care Team Providers Care Algologist Name Role Phone Neptali Palomo DMD Unavailable [phone] Reason for Visit * Reason Comments Med Refill Encounter Details Date Type Department Care Team (Late st Contact Info) Description 12/09/2023 Refill [facility] MEDICINE [address] [place], [place] [phone] Payal Walker, ANP [address] [place], [place] [phone] Type 2 diabetes mellitus with hyperlipidemia ([facility]/HCC) ([facility]); Primary hypertension Social History Tobacco [...] Description 04/20/2025 2:00 PM EST Office Visit [facility] ADULT DENTAL [address] [place] [address] Larry Hopper documented as of this encounter Visit Diagnoses Diagnosis Type 2 diabetes mellitus with hyperlipidemia (CMS/HCC) (CMS/HCC) Primary hypertension Unspecified essential hypertension documented in this encounter Additional Health Concerns Assessment Noted Time PHQ-9 Depression Total Score: 0 08/05/19 2:13 PM EDT documented as of this encounter Care Teams Algologist Relationship Specialty Start Date End Date Neptali Palomo DMD [address] [place] [address] Dentist 05/18/24 documented as of this encounter
--- OUTSIDE RECORDS SUMMARY | 2024-11-24 06:38 | XMS_ITS | Encounter Summary ---
Author Organization [employer] Address [address] [facility] 7t [place] [address] Care Team Providers Care Gunnery/Ordnance Officer Name Role Phone Neptali Palomo DMD Unavailable [phone] Reason for Visit * Reason Comments Med Refill Encounter Details Date Type Department Care Team (Late st Contact Info) Description 04/14/2024 Refill [facility] MEDICINE [address] [place], [place] [phone] Payal Walker, ANP [address] [place], [place] [phone] Type 2 diabetes mellitus with hyperlipidemia ([facility]/HCC) ([facility]) Social History Tobacco Use [...] Description 04/20/2025 2:00 PM EST Office Visit [facility] ADULT DENTAL 505 [place] [address] Larry Hopper documented as of this encounter Visit Diagnoses Diagnosis Type 2 diabetes mellitus with hyperlipidemia (CMS/HCC) (CMS/HCC) documented in this encounter Additional Health Concerns Assessment Noted Time PHQ-9 Depression Total Score: 0 08/05/19 2:13 PM EDT documented as of this encounter Care Teams Gunnery/Ordnance Officer Relationship Specialty Start Date End Date Neptali Palomo DMD [address] [place] [address] Dentist 05/18/24 documented as of this encounter
--- OUTSIDE RECORDS SUMMARY | 2024-11-24 06:38 | XMS_ITS | Encounter Summary ---
Author Organization [employer] Address [address] [facility] 7t [place] [address] Care Team Providers Care Public Area Attendant Name Role Phone Neptali Palomo DMD Unavailable [phone] Reason for Visit * Reason Comments Med Refill Encounter Details Date Type Department Care Team (Late st Contact Info) Description 01/28/2024 Refill [facility] MEDICINE 230 [place], [place] [phone] Payal Walker, ANP [address] [place], [place] [phone] Social History Tobacco Use Types Packs/Day Years [...] PM EST Office Visit [facility] ADULT DENTAL [address] [place] [address] Larry Hopper documented as of this encounter Visit Diagnoses Not on filedocumented in this encounter Additional Health Concerns Assessment Noted Time PHQ-9 Depression Total Score: 0 08/05/19 2:13 PM EDT documented as of this encounter Care Teams Public Area Attendant Relationship Specialty Start Date End Date Neptali Palomo DMD [address] [place] [address] Dentist 05/18/24 documented as of this encounter
--- OUTSIDE RECORDS SUMMARY | 2024-11-24 06:38 | XMS_ITS | Encounter Summary ---
Author Organization [employer] Address [address] [facility] 7t [place] [address] Care Team Providers Care Job Coach Name Role Phone Neptali Palomo DMD Unavailable [phone] Reason for Visit * Reason Comments Med Refill Encounter Details Date Type Department Care Team (Late st Contact Info) Description 01/28/2024 Refill [facility] MEDICINE [address] [place], [place] [phone] Payal Walker, ANP [address] [place], [place] [phone] Type 2 diabetes mellitus with hyperlipidemia ([facility]/HCC) ([facility]) Social History Tobacco Use Types [...] Description 04/20/2025 2:00 PM EST Office Visit [facility] ADULT DENTAL [address] [place] [address] Larry Hopper documented as of this encounter Visit Diagnoses Diagnosis Type 2 diabetes mellitus with hyperlipidemia (CMS/HCC) (CMS/HCC) documented in this encounter Additional Health Concerns Assessment Noted Time PHQ-9 Depression Total Score: 0 08/05/19 2:13 PM EDT documented as of this encounter Care Teams Job Coach Relationship Specialty Start Date End Date Neptali Palomo DMD [address] [place] [address] Dentist 05/18/24 documented as of this encounter
--- OUTSIDE RECORDS SUMMARY | 2024-11-24 06:38 | XMS_ITS | Encounter Summary ---
Author Organization [employer] [facility] Address [address] [place] [address] 7t [place] [address] Care Team Providers Care Multiple Tube Winding Machine Operator Name Role Phone Payal Walker Primary Care Provider [phone] Neptali Palomo DMD Unavailable [phone] Encounter Details Date Type Department Care Team (Latest Contact Info) Description 02/12/2020 Abstract [facility] CONVERSIONS Dental, Provider, DDS Social History [...] Description 04/20/2025 2:00 PM EST Office Visit [facility] ADULT DENTAL [address] [place] [address] Larry Hopper documented as of this encounter Visit Diagnoses Not on filedocumented in this encounter Care Teams Multiple Tube Winding Machine Operator Relationship Specialty Start Date End Date Payal Walker ANP [address] [place] [address] PCP - General Family Medicine 11/20/21 08/04/23 Neptali Palomo DMD [address] [place] [address] Dentist 05/18/24 documented as of this encounter
--- OUTSIDE RECORDS SUMMARY | 2024-11-24 06:38 | XMS_ITS | Encounter Summary ---
Author Organization [employer] Address [address] [facility] 7t [place] [address] Care Team Providers Care User Support Analyst Supervisor Name Role Phone Neptali Palomo DMD Unavailable [phone] Reason for Visit * Reason Comments Med Refill Encounter Details Date Type Department Care Team (Late st Contact Info) Description 11/04/2023 Refill [facility] MEDICINE 230 [place], [place] [phone] Payal Walker, ANP [address] [place], [place] [phone] Type 2 diabetes mellitus with hyperlipidemia ([facility]/HCC) ([facility]) [...] 2:00 PM EST Office Visit [facility] ADULT DENTAL [address] [place] [address] Larry Hopper documented as of this encounter Visit Diagnoses Diagnosis Type 2 diabetes mellitus with hyperlipidemia (CMS/HCC) (CMS/HCC) documented in this encounter Additional Health Concerns Assessment Noted Time PHQ-9 Depression Total Score: 0 08/05/19 2:13 PM EDT documented as of this encounter Care Teams User Support Analyst Supervisor Relationship Specialty Start Date End Date Neptali Palomo DMD [address] [place] [address] Dentist 05/18/24 documented as of this encounter
--- OUTSIDE RECORDS SUMMARY | 2024-11-24 06:38 | XMS_ITS | Encounter Summary ---
Author Organization [employer] Address [address] [facility] 7t [place] [address] Care Team Providers Care Excellence Specialist Name Role Phone Neptali Palomo DMD Unavailable [phone] Reason for Visit * Reason Comments Med Refill Encounter Details Date Type Department Care Team (Late st Contact Info) Description 11/01/2023 Refill [facility] MEDICINE [address] [place], [place] [phone] Payal Walker, ANP 230 [place], [place] [phone] Primary hypertension Social History Tobacco Use Types [...] Description 04/20/2025 2:00 PM EST Office Visit [facility] ADULT DENTAL [address] [place] [address] Larry Hopper documented as of this encounter Visit Diagnoses Diagnosis Primary hypertension Unspecified essential hypertension documented in this encounter Additional Health Concerns Assessment Noted Time PHQ-9 Depression Total Score: 0 08/05/19 2:13 PM EDT documented as of this encounter Care Teams Excellence Specialist Relationship Specialty Start Date End Date Neptali Palomo DMD [address] [place] [address] Dentist 05/18/24 documented as of this encounter
--- OUTSIDE RECORDS SUMMARY | 2024-11-24 06:38 | XMS_ITS | Clinical Summary ---
Author Organization [employer] Address [address] [facility] 7t [place] [address] Care Team Providers Care Production Cell Leader Name Role Phone Neptali Palomo DMD Unavailable [phone] Allergies Active Allergy Reactions Criticality Noted [...] ype 2 diabetes mellitus with hyperlipidemia (CMS/HCC) ([facility]) Use 1 by To Skin route once daily 100 each 3 05/14/19 23 Active Blood Glucose Monitoring Suppl (FreeStyle Lite) w/Device kitIndications:Typ e 2 diabetes mellitus without complication, unspecified whether fci insulin use (CMS/[facility]) 1 each before breakfast, before lunch, and before evening meal. 1 kit 07/11/19 23 Active Continuous Blood Gluc Quill Picking Machine Operator (FreeStyle Agatha 2 [place]) deviceIndications: Type 2 diabetes mellitus with hyperlipidemia (CMS/HCC) (CMS/[facility]) 1 each 5 (five) times a day. 1 each 07/28/19 23 Active Continuous Blood Gluc Sensor (FreeStyle Agatha 2 Sensor) miscIndications:Ty pe 2 diabetes mellitus with hyperlipidemia (CMS/HCC) ([facility]) 1 each every [...] tabletIndications: Type 2 diabetes mellitus with hyperlipidemia ([facility]/HCC) (CMS/HCC) TAKE 1 TABLET BY MOUTH DAILY [...] fasting and chem -referred to neurologist at [facility] stroke f up and to f CT ,MRI findings --unsure if actual aneurysm in CTA? 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 ADULT DENTAL [address] [place] [address] Larry Hopper Dental calculus (Primary Dx); Periodontal disease from Last 3 Months Immunizations Immunization Administration Dates Next Due Hep B, adult [...] Sign Reading Time Taken Comments Blood Pressure 122/66 10/18/2024 12:55 PM EDT Pulse 75 10/18/2024 12:55 PM EDT Temperature - - Respiratory Rate [...] Description 04/20/2025 2:00 PM EST Office Visit [facility] ADULT DENTAL [address] [place] [address] Larry Hopper Health Maintenance Due Date Last Done Comments CT Colonography 1961 FIT DNA/Cologuard 1961 FIT 1961 FOBT 1961 HIV Screening 1961 Sigmoidoscopy 1961 Disability Screening 1961 Diabetes: Foot Exam 09/09/1971 Eye Exam [...] 2023 04/16/2022, 02/28/2021, 07/05/2020, Additional history exists Influenza Vaccine (#1) 2024 , 04/14/2022, 01/02/2021, Additional history exists Dental Oral Exam 04/21/2025 10/18/2024, 06/2023, 02/01/2020, Additional history exists Dental Prophylaxis 04/21/2025 10/18/2024, 0 12/01/2023, 10/23/2020, Additional history exists Tobacco Screening 10/18/2025 10/18/2024 Dental X-Ray: Bitewings 10/19/2025 10/19/19 25, 12/01/2023, 02/01/2023, Additional history exists Colonoscopy 05/01/2026 05/01/2016 Colorectal Cancer Screening 05/01/2026 Dental X-Ray: Full Mouth 12/01/2026 12/01/2023, 0303/2017 DTaP/Tdap/Td Vaccines (2 - Td or Tdap) 11/01/2030 11/01/2020 Hepatitis C Screening Completed 07/16/2020 HIB Vaccines Aged Out No longer eligi [...] Procedure Name Priority Date/Time Associated Diagnosis Comments PERIODIC ORAL EVALUATION - ESTABLISHED PATIENT Routine 10/18/2024 1:00 PM EDT Periodontal disease ORAL HYGIENE INSTRUCTIONS Routine 10/18/2024 1:00 PM EDT Periodontal disease INTRAORAL - PERIAPICAL EACH ADDITIONAL RADIOGRAPHIC IMAGE Routine 10/18/2024 1:00 PM EDT Periodontal disease INTRAORAL - PERIAPICAL FIRST RADIOGRAPHIC IMAGE Routine 10/18/2024 1:00 PM EDT Periodontal disease BITEWINGS - 4 RADIOGRAPHIC IMAGES Routine 10/18/2024 1:00 PM EDT Periodontal disease CASE PRESENTATION, DETAILED AND EXTENSIVE TREATMENT PLANNING Routine 10/18/2024 1:00 PM EDT Periodontal disease PROPHYLAXIS - ADULT Routine 10/18/2024 1 :00 PM EDT Periodontal disease INTRAORAL - COMPLETE SERIES OF RADIOGRAPHIC IMAGES Routine 12/01/2023 2:00 PM EDT ALBUMIN, RANDOM [...] 9:03 AM EDT) Creatinine, Urine 89.78 mg/dL [facility] Microalbumin Urine 59.0 mg/L [facility] Microalbum Creatinine Ratio Ur 65.7 ug/mg cr [facility] Comment:Albumin/Creatinine R atio Reference Ranges: Normal: < 30 ug/mg creatinine Microalbuminuria: 30 - 300 ug/mg creatinineClinical Albuminuria: > 300 ug/mg creatinine 08/19/2022 9:03 AM EDT 08/19/2022 11:06 AM EDT [facility] External Provider LAB URI NE ORDERABLES Final Result Performing Organization Address [facility] Co de Phone Number [facility] [address] [place] [address] [phone] * Hemoglobin A1c (08/19/2022 9:03 AM [...] patient sample. Estimated Average Glucose 163 mg/dL [facility] Comment:eAG = Estimated ave rage glucose which is %A1C expressed asaverage glucose, using the formula of the R1Q-ZgqrixeYiynsee Glucose study (ADAG), Diabetes Care, Vol.31,#8,Oct. 2007 08/19/2022 9:03 AM EDT 08/19/2022 11:12 AM EDT [facility] External Provider LAB BLO OD ORDERABLES Final Result Performing Organization Address [facility] Co de Phone Number [facility] [address] [place] [address] [phone] * Lipid Panel, Standard (08/19/2022 9:03 AM EDT) Triglycerides 91 mg/dL [facility] Comment:Desirable Triglyceri de: less than 150 mg/dLBorderline High Triglyceride 150-199 mg/dLHigh Triglyceride: 200-499 mg/dLVery High Triglyceride: greater than or equal to 5OO mg/dL Cholesterol 186 mg/dL [facility] Comment:Desirable Cholestero l: less than 200 mg/dLBorderline High Cholesterol: 200-239 mg/dLHigh Cholesterol: greater than 239 mg/dL LDL Cholesterol Calculated 129 mg/dl [facility] Comment:Desirable LDL: less than 100 mg/dLNear Optimal/Above Optimal LDL: 110- 129 mg/dLBorderline High LDL: 130-159 mg/dLHigh LDL: 160-189 mg/dLVery High LDL: greater than or equal to 190 mg/dL HDL Cholesterol 39 mg/dL [facility] Comment:Desirable HDL: great er than 40 mg/dL Note: This HDL assay may give artificially low results in patients with liver disease. 08/19/2022 9:03 AM EDT 08/19/2022 11:12 AM EDT [facility] External Provider LAB BLO OD ORDERABLES Final Result Performing Organization Address [facility] Co de Phone Number [facility] [address] [place] [address] [phone] * HEPATITIS C AB W/REFL TO HCV RNA, QN, PCR (07/16/2020 9:56 AM EDT) HEPATITIS C ANTIBODY NON-REACT DEN NON-REACT DEN [facility] INDEX 0.02 <1.00 [facility] Comment: HCV antibody was non-reactive. There is no laboratory evidence of HCV infection. In most cases, no further action is required. However, if recent HCV exposure is suspected, a test for HCV RNA (test code 64734) is suggested. For additional information please refer to http://education.[employer].Monthlys/faq/YRT62b7 (This link is being provided for informational/ educational purposes only.) 07/16/2020 9:56 AM EDT Davida Webb PLANTING SUPERVISOR HISTORICAL/NON ORDERABLE LABS Final Result Performing Organization Address City/[facility] Co de Phone Number [facility] [address] [place] [address] * Colonoscopy (05/01/2016) Colonoscopy Normal Normal Narrative Mary Kate Emmanuel - 05/01/2016 Repeat in 10 years Historical Provider HEALTH MAINTENANCE Final Result from Last 3 Months or Most Recently Relevant to Health Maintenance Insurance [facility] MED[facility] D[facility] MEDICAID [place] Care Teams Production Cell Leader Relationship Specialty Start Date End Date Neptali Palomo DMD [address] [place] [address] Dentist 05/18/24
== END 2024-11-24 06:36 | disposition home or self-care (01) ==
LOC: HO.HMGCLDS 06:35
PROVIDERS: PCP Nurse Practitioner Family; Visit Provider Internal Medicine Endocrinology, Diabetes & Metabolism
DX: E11.8 Type 2 diabetes mellitus with unspecified complications (principal)
CPT/HCPCS: 36415; 82947; 84681

== ENCOUNTER 2024-11-24 13:15 | Outpatient (REF) | payer OTHER, SELFPAY ==
--- NOTE | 2024-11-24 13:30 | PFT_ITS ---
Flows: FEV1: 103 % of predicted at 3.35 L FVC: 97 % of predicted at 4.08 L FEV1/FVC: 82 % Bronchodilator response: Present in small to medium airways only Volumes: Total lung capacity: 93 % of predicted at 6.27 L Residual volume: 101 % of predicted at 2.18 L Slow vital capacity: 88 % of predicted at 4.08 L Expiratory reserve volume: 24 % of predicted at 0.28 L Diffusion capacity: Normal Impression: No obstructive or restrictive ventilatory defect. Bronchodilator response is present in small to medium airways only. Decreased expiratory reserve volume suggests extrathoracic restriction likely secondary to abdominal obesity. MTDD
[2024-11-24 14:05] VITALS: PULSE 92; O2SAT 98
== END 2024-11-24 13:16 | disposition home or self-care (01) ==
LOC: HO.RESP 13:15
PROVIDERS: PCP Nurse Practitioner Family; Visit Provider Nurse Practitioner Family
DX: J45.909 Unspecified asthma, uncomplicated (principal)
CPT/HCPCS: 94010; 94640; 94727; 94729

== ENCOUNTER → 2024-11-24 13:30 | Outpatient (BNV) | payer OTHER, SELFPAY | PROVIDERS: PCP Nurse Practitioner Family; Visit Provider Internal Medicine Pulmonary Disease | DX: J45.909 Unspecified asthma, uncomplicated (principal) | CPT/HCPCS: 94060; 94727; 94729 ==

== ENCOUNTER 2024-12-06 13:09 | Outpatient (AMB) | payer OTHER, SELFPAY ==
--- OUTSIDE RECORDS SUMMARY | 2024-12-06 16:10 | XMS_ITS | Encounter Summary ---
Author Organization [employer] Address 75 [facility] 7t [place] [address] Care Team Providers Care Spacecraft Systems Engineer Name Role Phone Neptali Palomo DMD Unavailable [phone] Reason for Visit * Reason Comments Med Refill Encounter Details Date Type Department Care Team (Late st Contact Info) Description 01/28/2024 Refill [facility] MEDICINE [address] [place], [place] [phone] Payal Walker, ANP [address] [place], [place] [phone] Type 2 diabetes mellitus with hyperlipidemia ([facility]/HCC) ([facility]) Social History Tobacco Use [...] Description 04/20/2025 2:00 PM EST Office Visit [facility] ADULT DENTAL [address] [place] [address] Larry Hopper documented as of this encounter Visit Diagnoses Diagnosis Type 2 diabetes mellitus with hyperlipidemia (CMS/HCC) (CMS/HCC) documented in this encounter Additional Health Concerns Assessment Noted Time PHQ-9 Depression Total Score: 0 08/05/19 2:13 PM EDT documented as of this encounter Care Teams Spacecraft Systems Engineer Relationship Specialty Start Date End Date Neptali Palomo DMD [address] [place] [address] Dentist 05/18/24 documented as of this encounter
--- OUTSIDE RECORDS SUMMARY | 2024-12-06 16:10 | XMS_ITS | Encounter Summary ---
Author Organization [employer] Address 75 [facility] 7t [place] [address] Care Team Providers Care Interior Assemblies Installer Name Role Phone Neptali Palomo DMD Unavailable [phone] Reason for Visit * Reason Comments Med Refill Encounter Details Date Type Department Care Team (Late st Contact Info) Description 04/14/2024 Refill [facility] MEDICINE [address] [place], [place] [phone] Payal Walker, ANP [address] [place], [place] [phone] Type 2 diabetes mellitus with hyperlipidemia ([facility]/HCC) ([facility]) Social History Tobacco Use Types Packs/Day Years [...] Description 04/20/2025 2:00 PM EST Office Visit [facility] ADULT DENTAL [address] [place] [address] Larry Hopper documented as of this encounter Visit Diagnoses Diagnosis Type 2 diabetes mellitus with hyperlipidemia (CMS/HCC) (CMS/HCC) documented in this encounter Additional Health Concerns Assessment Noted Time PHQ-9 Depression Total Score: 0 08/05/19 2:13 PM EDT documented as of this encounter Care Teams Interior Assemblies Installer Relationship Specialty Start Date End Date Neptali Palomo DMD [address] [place] [address] Dentist 05/18/24 documented as of this encounter
--- OUTSIDE RECORDS SUMMARY | 2024-12-06 16:10 | XMS_ITS | Encounter Summary ---
Author Organization [employer] Address 75 [facility] 7t [place] [address] Care Team Providers Care Automation Application Engineer Name Role Phone Neptali Palomo DMD Unavailable [phone] Reason for Visit * Reason Comments Med Refill Encounter Details Date Type Department Care Team (Late st Contact Info) Description 11/01/2023 Refill [facility] MEDICINE [address] [place], [place] [phone] Payal Walker, ANP 230 [place], [place] [phone] Primary hypertension Social History Tobacco Use Types [...] Description 04/20/2025 2:00 PM EST Office Visit [facility] ADULT DENTAL [address] [place] [address] Larry Hopper documented as of this encounter Visit Diagnoses Diagnosis Primary hypertension Unspecified essential hypertension documented in this encounter Additional Health Concerns Assessment Noted Time PHQ-9 Depression Total Score: 0 08/05/19 2:13 PM EDT documented as of this encounter Care Teams Automation Application Engineer Relationship Specialty Start Date End Date Neptali Palomo DMD [address] [place] [address] Dentist 05/18/24 documented as of this encounter
--- OUTSIDE RECORDS SUMMARY | 2024-12-06 16:10 | XMS_ITS | Encounter Summary ---
Author Organization [employer] Address 75 [facility] 7t [place] [address] Care Team Providers Care Dental Equipment Mechanic Name Role Phone Neptali Palomo DMD Unavailable [phone] Reason for Visit * Reason Comments Med Refill Encounter Details Date Type Department Care Team (Late st Contact Info) Description 01/28/2024 Refill [facility] MEDICINE [address] [place], [place] [phone] Payal Walker, ANP [address] [place], [place] [phone] Social History Tobacco Use Types Packs/Day Years [...] 2:00 PM EST Office Visit [facility] ADULT DENTAL [address] [place] [address] Larry Hopper documented as of this encounter Visit Diagnoses Not on filedocumented in this encounter Additional Health Concerns Assessment Noted Time PHQ-9 Depression Total Score: 0 08/05/19 2:13 PM EDT documented as of this encounter Care Teams Dental Equipment Mechanic Relationship Specialty Start Date End Date Neptali Palomo DMD [address] [place] [address] Dentist 05/18/24 documented as of this encounter
--- OUTSIDE RECORDS SUMMARY | 2024-12-06 16:10 | XMS_ITS | Encounter Summary ---
Author Organization [employer] Address 75 [facility] 7t [place] [address] Care Team Providers Care Market Master Name Role Phone Neptali Palomo DMD Unavailable [phone] Reason for Visit * Reason Comments Med Refill Encounter Details Date Type Department Care Team (Late st Contact Info) Description 10/22/2023 Refill [facility] MEDICINE [address] [place], [place] [phone] Payal Walker, ANP 230 [place], [place] [phone] Type 2 diabetes mellitus with hyperlipidemia ([facility]/HCC) ([facility]) Social History Tobacco Use Types Packs/Day Years [...] 2:00 PM EST Office Visit [facility] ADULT DENTAL [address] [place] [address] Larry Hopper documented as of this encounter Visit Diagnoses Diagnosis Type 2 diabetes mellitus with hyperlipidemia (CMS/HCC) (CMS/HCC) documented in this encounter Additional Health Concerns Assessment Noted Time PHQ-9 Depression Total Score: 0 08/05/19 2:13 PM EDT documented as of this encounter Care Teams Market Master Relationship Specialty Start Date End Date Neptali Palomo DMD [address] [place] [address] Dentist 05/18/24 documented as of this encounter
--- OUTSIDE RECORDS SUMMARY | 2024-12-06 16:10 | XMS_ITS | Encounter Summary ---
Author Organization [employer] Address [address] [facility] 7t [place] [address] Care Team Providers Care Correction Officer Head Name Role Phone Walker Payal RUANO Primary Care Provider [phone] Neptali Palomo DMD Unavailable [phone] Encounter Details Date Type Department Care Team (Late st Contact Info) Description 02/16/2023 Abstract [facility] MEDICINE [address] [place], [place] [phone] Mary Kate Emmanuel Social History Tobacco Use [...] Description 04/20/2025 2:00 PM EST Office Visit [facility] ADULT DENTAL [address] [place] [address] Larry Hopper documented as of this encounter [...] documented as of this encounter Care Teams Correction Officer Head Relationship Specialty Start Date End Date Payal Walker ANP [address] [place] [address] PCP - General Family Medicine 11/20/21 08/04/23 Neptali Palomo DMD [address] [place] [address] Dentist 05/18/24 documented as of this encounter
--- OUTSIDE RECORDS SUMMARY | 2024-12-06 16:10 | XMS_ITS | Encounter Summary ---
Author Organization [employer] [facility] Address [address] [place] [address] 7 [place] [address] Care Team Providers Care Radiologist Name Role Phone Payal Walker Primary Care Provider [phone] Neptali Palomo DMD Unavailable [phone] Encounter Details Date Type Department Care Team (Latest Contact Info) Description 02/12/2020 Abstract [facility] CONVERSIONS Dental, Provider, DDS Social [...] Description 04/20/2025 2:00 PM EST Office Visit [facility] CHC ADULT DENTAL [address] [place] [address] Larry Hopper documented as of this encounter Visit Diagnoses Not on filedocumented in this encounter Care Teams Radiologist Relationship Specialty Start Date End Date Payal Walker ANP [address] [place] [address] PCP - General Family Medicine 11/20/21 08/04/23 Neptali Palomo DMD [address] [place] [address] Dentist 05/18/24 documented as of this encounter
--- OUTSIDE RECORDS SUMMARY | 2024-12-06 16:10 | XMS_ITS | Encounter Summary ---
Author Organization [facility] [facility] Address [address] [place] [address] 7 [place] [address] Care Team Providers Care Gyroscopic Instrument Mechanic Name Role Phone Payal Walker Primary Care Provider [phone] Neptali Palomo DMD Unavailable [phone] Encounter Details Date Type Department Care Team (Latest Contact Info) Description 10/03/2018 Abstract [facility] CONVERSIONS Dental, Provider, DDS Social [...] Description 04/20/2025 2:00 PM EST Office Visit [facility] ADULT DENTAL [address] [place] [address] Larry Hopper documented as of this encounter Visit Diagnoses Not on filedocumented in this encounter Care Teams Gyroscopic Instrument Mechanic Relationship Specialty Start Date End Date Payal Walker ANP [address] [place] [address] PCP - General Family Medicine 11/20/21 08/04/23 Neptali Palomo DMD [address] [place] [address] Dentist 05/18/24 documented as of this encounter
--- OUTSIDE RECORDS SUMMARY | 2024-12-06 16:10 | XMS_ITS | Encounter Summary ---
Author Organization [employer] Address 75 [facility] 7t [place] [address] Care Team Providers Care Film Washer Name Role Phone Aaron Payal RUANO Primary Care Provider [phone] Neptali Palomo DMD Unavailable [phone] Reason for Visit * Reason Comments Med Refill Encounter Details Date Type Department Care Team (Late st Contact Info) Description 10/20/2022 Refill [facility] MEDICINE 230 [place], [place] [phone] [facility] 230 [place], [place] [phone] Social History Tobacco Use Types Packs/Day Years [...] [facility] [address] [place] [address] Larry Hopper documented as of this encounter Visit Diagnoses Not on filedocumented in this encounter Additional Health Concerns Assessment Noted Time PHQ-9 Depression Total Score: 0 08/05/19 23 2:13 PM EDT documented as of this encounter Care Teams Film Washer Relationship Specialty Start Date End Date Payal Walker ANP [address] [place] [address] PCP - General Family Medicine 11/20/21 08/04/23 Neptali Palomo DMD [address] [place] [address] Dentist 05/18/24 documented as of this encounter
--- OUTSIDE RECORDS SUMMARY | 2024-12-06 16:10 | XMS_ITS | Encounter Summary ---
Author Organization [employer] Address 75 [facility] 7t [place] [address] Care Team Providers Care Boat Tester Name Role Phone Neptali Palomo DMD Unavailable [phone] Reason for Visit * Reason Comments Med Refill Encounter Details Date Type Department Care Team (Late st Contact Info) Description 11/04/2023 Refill [facility] MEDICINE [address] [place], [place] [phone] Payal Walker, ANP 230 [place], [place] [phone] Type 2 diabetes mellitus with hyperlipidemia ([facility]/HCC) ([facility]) Social [...] Description 04/20/2025 2:00 PM EST Office Visit [facility] ADULT DENTAL [address] [place] [address] Larry Hopper documented as of this encounter Visit Diagnoses Diagnosis Type 2 diabetes mellitus with hyperlipidemia (CMS/HCC) (CMS/HCC) documented in this encounter Additional Health Concerns Assessment Noted Time PHQ-9 Depression Total Score: 0 08/05/19 2:13 PM EDT documented as of this encounter Care Teams Boat Tester Relationship Specialty Start Date End Date Neptali Palomo DMD [address] [place] [address] Dentist 05/18/24 documented as of this encounter
--- OUTSIDE RECORDS SUMMARY | 2024-12-06 16:10 | XMS_ITS | Encounter Summary ---
Author Organization [employer] Address 75 [facility] 7t [place] [address] Care Team Providers Care Publicity Consultant Name Role Phone Walker Payal RUANO Primary Care Provider [phone] Neptali Palomo DMD Unavailable [phone] Reason for Visit * Reason Comments Med Refill Encounter Details Date Type Department Care Team ([facility] st Contact Info) Description 06/25/2023 Refill [facility] MEDICINE [address] [place], [place] [phone] Siena Greenwood MD [address] [place], [place] [phone] GERD without esophagitis Social History Tobacco Use [...] Description 04/20/2025 2:00 PM EST Office Visit [facility] ADULT DENTAL [address] [place] [address] Larry Hopper documented as of this encounter Visit Diagnoses Diagnosis GERD without esophagitis Esophageal reflux documented in this encounter Additional Health Concerns Assessment Noted Time PHQ-9 Depression Total Score: 0 08/05/19 2:13 PM EDT documented as of this encounter Care Teams Publicity Consultant Relationship Specialty Start Date End Date Payal Walker ANP [address] [place] [address] PCP - General Family Medicine 11/20/21 08/04/23 Neptali Palomo DMD [address] [place] [address] Dentist 05/18/24 documented as of this encounter
--- OUTSIDE RECORDS SUMMARY | 2024-12-06 16:10 | XMS_ITS | Encounter Summary ---
Author Organization [employer] Address [address] [facility] 7[address] [place] [address] Care Team Providers Care Train Control Electronic Technician Name Role Phone Neptali Palomo DMD Unavailable [phone] Reason for Visit * Reason Comments Med Refill Encounter Details Date Type Department Care Team (Late st Contact Info) Description 12/09/[address] [facility] MEDICINE [address] [place], [place] [phone] Payal Walker, ANP [address] [place], [place] [phone] Type 2 diabetes mellitus with hyperlipidemia ([facility]/HCC) ([facility]); Primary hypertension Social History [...] 2:00 PM EST Office Visit [facility] ADULT D[facility]AL [address] [place] [address] Larry Hopper documented as of this encounter Visit Diagnoses Diagnosis Type 2 diabetes mellitus with hyperlipidemia (CMS/HCC) (CMS/HCC) Primary hypertension Unspecified essential hypertension documented in this encounter Additional Health Concerns Assessment Noted Time PHQ-9 Depression Total Score: 0 08/05/19 2:13 PM EDT documented as of this encounter Care Teams Train Control Electronic Technician Relationship Specialty Start Date End Date Neptali Palomo DMD [address] [place] [address] Dentist 05/18/24 documented as of this encounter
--- OUTSIDE RECORDS SUMMARY | 2024-12-06 16:10 | XMS_ITS | Clinical Summary ---
Author Organization [employer] Address [address] [facility] 7[address] [place] [address] Care Team Providers Care Bird Cage Assembler Name Role Phone Neptali Palomo DMD Unavailable [phone] Allergies Active Allergy Reactions Criticality Noted [...] ype 2 diabetes mellitus with hyperlipidemia (CMS/HCC) ([facility]) Use 1 by To Skin route once daily 100 each 3 05/14/19 23 Active Blood Glucose Monitoring Suppl (FreeStyle Lite) w/Device kitIndications:Typ e 2 diabetes mellitus without complication, unspecified whether ferry terminal supervisor insulin use ([facility]) 1 each before breakfast, before lunch, and before evening meal. 1 kit 07/11/19 23 Active Continuous Blood Gluc Executive Housekeeper (FreeStyle Agatha 2 [place]) deviceIndications: Type 2 diabetes mellitus with hyperlipidemia (CMS/HCC) (CMS/[facility]) 1 each 5 (five) times a day. 1 each 07/28/19 23 Active Continuous Blood Gluc Sensor (FreeStyle Agatha 2 Sensor) miscIndications:Ty pe 2 diabetes mellitus with hyperlipidemia (CMS/HCC) ([facility]) 1 each every 14 (fourteen) days. 6 [...] tabletIndications: Type 2 diabetes mellitus with hyperlipidemia ([facility]/HCC) (CMS/HCC) TAKE 1 TABLET BY MOUTH [...] fasting and chem -referred to neurologist at [facility] stroke f up and to f CT ,MRI findings --unsure if actual aneurysm in CTA? 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 Mild nodularity increases suspicion for cirrhosis Encounters Date Type Department Care Team Description 10/18/2024 1:00 PM EDT Office Visit [facility] ADULT D[facility]AL [address] [place] [address] Larry Hopper Dental calculus (Primary Dx); Periodontal [...] 04/20/2025 2:00 PM EST Office Visit [facility] ADULT [facility] [address] [place] [phone] Larry Hopper Health Maintenance Due Date Last [...] Additional history exists COVID-19 Vaccine ( season) 2024 04/16/2022, 02/28/2021, 07/05/2020, Additional history exists Influenza [...] 9:03 AM EDT) Creatinine, Urine 89.78 mg/dL [facility] Microalbumin Urine 59.0 mg/L [facility] Microalbum Creatinine Ratio Ur 65.7 ug/mg cr [facility] Comment:Albumin/Creatinine R atio Reference Ranges: Normal: < 30 ug/mg creatinine Microalbuminuria: 30 - 300 ug/mg creatinineClinical Albuminuria: > 300 ug/mg creatinine 08/19/2022 9:03 AM EDT 08/19/2022 11:06 AM EDT [facility] External Provider LAB URI NE ORDERABLES Final Result Performing Organization Address [facility] Co de Phone Number [facility] [address] [place] [address] [phone] * Hemoglobin A1c (08/19/2022 9:03 AM EDT) Hemoglobin A1c 7.3 % [facility] Comment:Hemoglobin A1C Refer ence Range Adults: 4.8 - 6.0 % Non diabetic: < 6.0 % Goal: < 7.0 %Additional Action Suggested: > 8.0 %Note: Hemoglobin A1c results are invalid for patients with abnormal amounts of HbF. Blood transfusions may impact the HbA1c concentration in the patient sample. Estimated Average Glucose 163 mg/dL [facility] Comment:eAG = Estimated ave rage glucose which is %A1C expressed asaverage glucose, using the formula of the D5V-AkuvlxbVshtepv Glucose study (ADAG), Diabetes Care, Vol.31,#8,Oct. 2007 08/19/2022 9:03 AM EDT 08/19/2022 11:12 AM EDT [facility] External Provider LAB BLO OD ORDERABLES Final Result Performing Organization Address [facility] Co de Phone Number [facility] [address] [place] [address] [phone] * Lipid Panel, Standard (08/19/2022 9:03 AM EDT) Triglycerides 91 mg/dL [facility] Comment:Desirable Triglyceri de: less than 150 mg/dLBorderline High Triglyceride 150-199 mg/dLHigh Triglyceride: 200-499 mg/dLVery High Triglyceride: greater than or equal to 5OO mg/dL Cholesterol 186 mg/dL [facility] Comment:Desirable Cholestero l: less than 200 mg/dLBorderline High Cholesterol: 200-239 mg/dLHigh Cholesterol: greater than 239 mg/dL LDL Cholesterol Calculated 129 mg/dl [facility] Comment:Desirable LDL: less than 100 mg/dLNear Optimal/Above Optimal LDL: 110- 129 mg/dLBorderline High LDL: 130-159 mg/dLHigh LDL: 160-189 mg/dLVery High LDL: greater than or equal to 190 mg/dL HDL Cholesterol 39 mg/dL [facility] Comment:Desirable HDL: great er than 40 mg/dL Note: This HDL assay may give artificially low results in patients with liver disease. 08/19/2022 9:03 AM EDT 08/19/2022 11:12 AM EDT [facility] External Provider LAB BLO OD ORDERABLES Final Result Performing Organization Address [facility] Co de Phone Number [facility] [address] [place] [address] [phone] * HEPATITIS C AB W/REFL TO HCV RNA, QN, PCR (07/16/2020 9:56 AM EDT) HEPATITIS C ANTIBODY NON-REACT DEN NON-REACT DEN [facility] INDEX 0.02 <1.00 [facility] Comment: HCV antibody was non-reactive. There is no laboratory evidence of HCV infection. In most cases, no further action is required. However, if recent HCV exposure is suspected, a test for HCV RNA (test code 58459) is suggested. For additional information please refer to http://education.SNSplus.CapLinked/faq/SJW35i2 (This link is being provided for informational/ educational purposes only.) 07/16/2020 9:56 AM EDT Davida Webb DR[employer] SEINER HISTORICAL/NON ORDERABLE LABS Final Result Performing Organization Address [facility] Co de Phone Number [facility] [address] [place] [address] * Colonoscopy (05/01/2016) Colonoscopy Normal Normal Narrative Mary Kate Emmanuel - 05/01/2016 Repeat in 10 years Historical Provider HEALTH MAINTENANCE Final Result from Last 3 Months or Most Recently Relevant to Health Maintenance Insurance [facility] MEDICARE DENT[facility] MEDICAID STAND ADULT CO Care Teams Bird Cage Assembler Relationship Specialty Start Date End Date Neptali Palomo DMD [address] [place] [phone] Dentist 05/18/24
== END 2024-12-06 13:12 | disposition home or self-care (01) ==
LOC: HO.HMGAL 13:09
PROVIDERS: PCP Nurse Practitioner Family; Visit Provider Registered Nurse Emergency
DX: J30.89 Other allergic rhinitis (principal)
CPT/HCPCS: 95117; 95165

== ENCOUNTER 2024-12-18 09:06 | Outpatient (AMB) | payer OTHER, SELFPAY ==
[2024-12-18 09:08] VITALS: BP 126/94; PULSE 83; RESP 18; TEMP 36.5; O2SAT 98; BMI 28.1
--- NOTE | 2024-12-18 09:08 | AM.OFFWIN_ITS ---
Intake Vital Signs 12/18/24 09:08 Height 5 ft 8 in Weight 185 lb BMI 28.1 BP 126/94 H Blood Pressure Location Lt brachial Position Sitting Respiration 18 Pulse 83 Pulse Source Pulse Oximeter Temp 97.7 F Temp Source Oral Pulse Oximetry (%) 98 Intake Visit Reasons: ep cough for 6 days hard time breathing Patient Tobacco Use Status: Former Tobacco user Industrial Roofer Helper Required: No Accompanied by: Self / Same As Patient Allergies codeine (CODEINE) Allergy (Intermediate, Verified 12/18/24 09:11) TACHYCARDIA HPI HPI Comments History of Present Illness Details History - The patient is a 64-year-old [place] [facility] male presenting with an line and frame poler for symptoms of a cold, including congestion and sore throat, unresponsive to dnwe-opy-izdeept medications. - The patient reports having a cold for one week, with significant congestion and a runny nose. - He has tried various tylr-ofn-vucaxdk medications for flu symptoms without relief. - The patient also used an inhaler, susp ecting asthma, but it did not alleviate his symptoms. - He reports having phlegm and a persist ent sore throat. - The patient denies any fever, nausea, or vomiting. - He has a history of asthma and uses an inhaler. - The patient does not smoke, and his wi fe became ill after him. Physical Exam General: Cooperative, healthy appearing, comfortable and no acute distress Orientation/consciousness: Patient oriented x3 Limitations: No limitations Head: Normal to inspection Ears: Hearing grossly normal bilaterally, external ears normal and TM's normal bilaterally Nose: Normal external nose present, normal nares present, and nasal discharge present Face and sinus: Sinuses nontender to palpation Mouth: Normal oral and palatal mucosa present and moist mucous membranes noted Throat: Tonsils normal. Uvula is midline. Posterior oropharynx with erythema and no exudates Eyes: Appearance normal, both eyes and all related structures Neck: Normal visual inspection, full ROM. No lymphadenopathy noted Respiratory: Wheezing noted. Normal respiratory effort, able to speak in complete sentences. No respiratory distress, not tachypneic, no tripod positioning and no use of accessory muscles Cardiovascular: Regular rate and rhythm. Normal S1 and S2 Skin: No rashes or lesions noted Patient was informed and verbally consented to the use of an ambient scribe for clinic note documentation during this visit [facility] Medical History Palpitations Pancreatitis Arthritis GERD (gastroesophageal reflux disease) CVA (cerebral vascular accident) Microalbuminuric diabetic nephropathy Type II diabetes with halfway use of insulin Erectile dysfunction Vitamin D deficiency Multinodular thyroid Other and unspecified hyperlipidemia Essential hypertension Aortic valve calcification Surgical History History of esophagogastroduodenoscopy (EGD) H/O colonoscopy Family History Father Stroke Brother Stroke Mother Diabetes Social History Household Members: Spouse Housing: House Alcohol intake: never Patient Tobacco Use Status: Former Tobacco user e-Cigarette/Vaping Use: Never Used service: No Current occupational status: disabled Cognitive needs: No Hearing needs: No Vision needs: Yes Review of Systems Const All systems reviewed & are unremarkable except as noted in HPI and below Physical Exam Vital Signs: Last Vital Signs Temp 97.7 F 12/18/24 09:08 Pulse 83 12/18/24 09:08 Resp 18 12/18/24 09:08 BP 126/94 H 12/18/24 09:08 Pulse Ox 98 12/18/24 09:08 BMI result Body Mass Index 28.1 Assessment & Plan Assessment & Plan (1) URI with cough and congestion: Code(s): J06.9 - Acute upper respiratory infection, unspecified Plan Most likely URI vs covid vs flu vs RSV vs asthma exacerbation vs viral illness plan - A respiratory panel test was ordered to identify any viral infections. - Prescriptions for prednisone and cough medicine were provided to manage symptoms. - The patient was advised that the culture results would be communicated if they indicated any specific findings. - The patient was advised to continue using his inhaler as needed. - follow up with PCP Orders: Orders Resp Pathogen Panel - [facility] Today J06.9 - Acute upper respiratory infection, unspecified Medications: New cetirizine-pseudoephedrine 5-120 mg ER 1 tab PO BID 14 tabs 0RF 7 days benzonatate 100 mg PO bid-tid PRN 21 caps 0RF Cough 7 days fluticasone propionate 50 mcg/actuation administer into each nostril 1 spray intranasal Q12H 16 grams 0RF prednisone 40 mg (2 x 20 mg) PO DAILY 10 tabs 0RF 5 days Coding Level of Care Code Est Pt Level 3 (43700) Diagnoses URI with cough and congestion J06.9
--- OUTSIDE RECORDS SUMMARY | 2024-12-18 10:40 | XMS_ITS | Encounter Summary ---
Author Organization [employer] Address [address] [facility] [address] [place] [address] Care Team Providers Care Mold Filler Name Role Phone Neptali Palomo DMD Unavailable [phone] Reason for Visit * Reason Comments Med Refill Encounter Details Date Type Department Care Team (Late st Contact Info) Description 11/04/2023 Refill [facility] MEDICINE [address] [place], [place] [phone] Payal Walker, ANP [address] [place], [place] [phone] Type 2 diabetes mellitus with hyperlipidemia ([facility]/HCC) ([facility]) Social History Tobacco Use [...] Team (Late st Contact Info) Description 04/20/2025 2:15 PM EST Office Visit [facility] ADULT DENTAL [address] [place] [address] Larry Hopper documented as of this encounter Visit Diagnoses Diagnosis Type 2 diabetes mellitus with hyperlipidemia (CMS/HCC) (CMS/HCC) documented in this encounter Additional Health Concerns Assessment Noted Time PHQ-9 Depression Total Score: 0 08/05/19 2:13 PM EDT documented as of this encounter Care Teams Mold Filler Relationship Specialty Start Date End Date Neptali Palomo DMD [address] [place] [address] Dentist 05/18/24 documented as of this encounter
--- OUTSIDE RECORDS SUMMARY | 2024-12-18 10:40 | XMS_ITS | Encounter Summary ---
Author Organization [employer] Address [address] [facility] [address] [place] [address] Care Team Providers Care Igniter Capper Name Role Phone Neptali Palomo DMD Unavailable [phone] Reason for Visit * Reason Comments Med Refill Encounter Details Date Type Department Care Team (Late st Contact Info) Description 01/28/2024 Refill [facility] MEDICINE [address] [place], [place] [phone] Payal Walker, ANP [address] [place], [place] [phone] Type 2 diabetes mellitus with hyperlipidemia ([facility]/HCC) ([facility]) Social History Tobacco Use [...] Description 04/20/2025 2:15 PM EST Office Visit [facility] ADULT DENTAL [address] [place] [address] Larry Hopper documented as of this encounter Visit Diagnoses Diagnosis Type 2 diabetes mellitus with hyperlipidemia (CMS/HCC) (CMS/HCC) documented in this encounter Additional Health Concerns Assessment Noted Time PHQ-9 Depression Total Score: 0 08/05/19 2:13 PM EDT documented as of this encounter Care Teams Igniter Capper Relationship Specialty Start Date End Date Neptali Palomo DMD [address] [place] [address] Dentist 05/18/24 documented as of this encounter
--- OUTSIDE RECORDS SUMMARY | 2024-12-18 10:40 | XMS_ITS | Clinical Summary ---
Author Organization [employer] Address [address] [facility] [address] [place] [address] Care Team Providers Care Machine Made Shoe Unit Worker Name Role Phone Neptali Palomo DMD Unavailable [phone] Allergies Active Allergy Reactions Criticality Noted [...] ype 2 diabetes mellitus with hyperlipidemia (CMS/HCC) ([facility]) Use 1 by To Skin route once daily 100 each 3 05/14/19 23 Active Blood Glucose Monitoring Suppl (FreeStyle Lite) w/Device kitIndications:Typ e 2 diabetes mellitus without complication, unspecified whether intermediate teacher insulin use ([facility]) 1 each before breakfast, before lunch, and before evening meal. 1 kit 07/11/19 23 Active Continuous Blood Gluc Retrimmer (FreeStyle Agatha 2 [place]) deviceIndications: Type 2 diabetes mellitus with hyperlipidemia (CMS/HCC) ([facility]) 1 each 5 (five) times a day. 1 each 07/28/19 23 Active Continuous Blood Gluc Sensor (FreeStyle Agatha 2 Sensor) miscIndications:Ty pe 2 diabetes mellitus with hyperlipidemia (CMS/HCC) ([facility]) 1 each every 14 (fourteen) [...] tabletIndications: Type 2 diabetes mellitus with hyperlipidemia ([facility]/HCC) (CMS/HCC) TAKE 1 TABLET BY MOUTH [...] fasting and chem -referred to neurologist at [facility] stroke f up and to f CT ,MRI findings --unsure if actual aneurysm in CTA? 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 Elevated liver function tests 12/25/2014 Overview (04/16/2022): Liver U/S 05/13/16, borderline ehcogenic. Mild nodularity increases suspicion for cirrhosis Encounters Date Type Department Care Team Description 10/18/2024 1:00 PM EDT Office Visit [facility] ADULT DENTAL [address] [place] [address] Larry Hopper Dental calculus (Primary Dx); Periodontal [...] Description 04/20/2025 2:15 PM EST Office Visit [facility] ADULT DENTAL [address] [place] [address] Larry Hopper Health Maintenance Due Date Last [...] 9:03 AM EDT) Creatinine, Urine 89.78 mg/dL [facility] Microalbumin Urine 59.0 mg/L [facility] Microalbum Creatinine Ratio Ur 65.7 ug/mg cr [facility] Comment:Albumin/Creatinine R atio Reference Ranges: Normal: < 30 ug/mg creatinine Microalbuminuria: 30 - 300 ug/mg creatinineClinical Albuminuria: > 300 ug/mg creatinine 08/19/2022 9:03 AM EDT 08/19/2022 11:06 AM EDT [facility] External Provider LAB URI NE ORDERABLES Final Result Performing Organization Address [facility] Co de Phone Number [facility] [address] [place] [address] [phone] * Hemoglobin A1c (08/19/2022 9:03 AM EDT) Hemoglobin A1c 7.3 % [facility] Comment:Hemoglobin A1C Refer ence Range Adults: 4.8 - 6.0 % Non diabetic: < 6.0 % Goal: < 7.0 %Additional Action Suggested: > 8.0 %Note: Hemoglobin A1c results are invalid for patients with abnormal amounts of HbF. Blood transfusions may impact the HbA1c concentration in the patient sample. Estimated Average Glucose 163 mg/dL [facility] Comment:eAG = Estimated ave rage glucose which is %A1C expressed asaverage glucose, using the formula of the X4M-CcegekoTwfhbml Glucose study (ADAG), Diabetes Care, Vol.31,#8,Oct. 2007 08/19/2022 9:03 AM EDT 08/19/2022 11:12 AM EDT [facility] External Provider LAB BLO OD ORDERABLES Final Result Performing Organization Address [facility] Co de Phone Number [facility] [address] [place] [address] [phone] * Lipid Panel, Standard (08/19/2022 9:03 AM EDT) Triglycerides 91 mg/dL [facility] Comment:Desirable Triglyceri de: less than 150 mg/dLBorderline High Triglyceride 150-199 mg/dLHigh Triglyceride: 200-499 mg/dLVery High Triglyceride: greater than or equal to 5OO mg/dL Cholesterol 186 mg/dL [facility] Comment:Desirable Cholestero l: less than 200 mg/dLBorderline High Cholesterol: 200-239 mg/dLHigh Cholesterol: greater than 239 mg/dL LDL Cholesterol Calculated 129 mg/dl [facility] Comment:Desirable LDL: less than 100 mg/dLNear Optimal/Above Optimal LDL: 110- 129 mg/dLBorderline High LDL: 130-159 mg/dLHigh LDL: 160-189 mg/dLVery High LDL: greater than or equal to 190 mg/dL HDL Cholesterol 39 mg/dL [facility] Comment:Desirable HDL: great er than 40 mg/dL Note: This HDL assay may give artificially low results in patients with liver disease. 08/19/2022 9:03 AM EDT 08/19/2022 11:12 AM EDT [facility] External Provider LAB BLO OD ORDERABLES Final Result Performing Organization Address [facility] Co de Phone Number [facility] [address] [place] [address] [phone] * HEPATITIS C AB W/REFL TO HCV RNA, QN, PCR (07/16/2020 9:56 AM EDT) HEPATITIS C ANTIBODY NON-REACT DEN NON-REACT DEN [facility] INDEX 0.02 <1.00 [facility] Comment: HCV antibody was non-reactive. There is no laboratory evidence of HCV infection. In most cases, no further action is required. However, if recent HCV exposure is suspected, a test for HCV RNA (test code 19592) is suggested. For additional information please refer to http://education.nanoPay inc..Lush Technologies/faq/WRF35g7 (This link is being provided for informational/ educational purposes only.) 07/16/2020 9:56 AM EDT Davida Webb BEHAVIORAL SCIENCES DEPARTMENT CHAIR HISTORICAL/NON ORDERABLE LABS Final Result Performing Organization Address City/[facility] Co de Phone Number [facility] [address] [place] [address] * Colonoscopy (05/01/2016) Colonoscopy Normal Normal Narrative Mary Kate Emmanuel - 05/01/2016 Repeat in 10 years Historical Provider HEALTH MAINTENANCE Final Result from Last 3 Months or Most Recently Relevant to Health Maintenance Insurance [facility] MEDICARE DENTAL-[facility] MEDICAID STAND ADULT ID Care Teams Machine Made Shoe Unit Worker Relationship Specialty Start Date End Date Neptali Palomo DMD [address] [place] [phone] Dentist 05/18/24
--- OUTSIDE RECORDS SUMMARY | 2024-12-18 10:40 | XMS_ITS | Encounter Summary ---
Author Organization [employer] Address 75 [facility] 7t [place] [address] Care Team Providers Care Building Services Engineer Name Role Phone Neptali Palomo DMD Unavailable Reason for Visit * Reason Comments Med Refill Encounter Details Date Type Department Care Team (Late st Contact Info) Description 12/09/2023 Refill [facility] MEDICINE [address] [place], [place] [phone] Payal Walker, ANP 230 [place], [place] [phone] Type 2 diabetes mellitus with hyperlipidemia ([facility]/HCC) ([facility]); Primary hypertension Social History Tobacco Use [...] 2:15 PM EST Office Visit [facility] ADULT DENTAL [address] [place] [address] Larry Hopper documented as of this encounter Visit Diagnoses Diagnosis Type 2 diabetes mellitus with hyperlipidemia (CMS/HCC) (CMS/HCC) Primary hypertension Unspecified essential hypertension documented in this encounter Additional Health Concerns Assessment Noted Time PHQ-9 Depression Total Score: 0 08/05/19 2:13 PM EDT documented as of this encounter Care Teams Building Services Engineer Relationship Specialty Start Date End Date Neptali Palomo DMD [address] [place] [address] Dentist 05/18/24 documented as of this encounter
--- OUTSIDE RECORDS SUMMARY | 2024-12-18 10:40 | XMS_ITS | Encounter Summary ---
Author Organization [employer] Address 75 [facility] 7t [place] [address] Care Team Providers Care Horse Stud Manager Name Role Phone Neptali Palomo DMD Unavailable Reason for Visit * Reason Comments Med Refill Encounter Details Date Type Department Care Team (Late st Contact Info) Description 01/28/2024 Refill [facility] MEDICINE 230 [place], [place] [phone] Payal Walker, ANP 230 [place], [place] [phone] Social History Tobacco Use Types Packs/Day Years [...] Description 04/20/2025 2:15 PM EST Office Visit [facility] ADULT DENTAL 505 [place] [address] Larry Hopper documented as of this encounter Visit Diagnoses Not on filedocumented in this encounter Additional Health Concerns Assessment Noted Time PHQ-9 Depression Total Score: 0 08/05/19 2:13 PM EDT documented as of this encounter Care Teams Horse Stud Manager Relationship Specialty Start Date End Date Neptali Palomo DMD 505 [place] [address] Dentist 05/18/24 documented as of this encounter
--- OUTSIDE RECORDS SUMMARY | 2024-12-18 10:40 | XMS_ITS | Encounter Summary ---
Author Organization [employer] Address 75 [facility] 7t [place] [address] Care Team Providers Care Shank Inspector Name Role Phone Aaron Payal RUANO Primary Care Provider [phone] Neptali Palomo DMD Unavailable [phone] Reason for Visit * Reason Comments Med Refill Encounter Details Date Type Department Care Team (Late st Contact Info) Description 10/20/2022 Refill [facility] MEDICINE 230 [place], [place] [phone] [facility] 230 [place], [place] [phone] Social History Tobacco Use Types Packs/Day Years [...] 2:15 PM EST Office Visit [facility] ADULT DENTAL [address] [place] [address] Larry Hopper documented as of this encounter Visit Diagnoses Not on filedocumented in this encounter Additional Health Concerns Assessment Noted Time PHQ-9 Depression Total Score: 0 08/05/19 23 2:13 PM EDT documented as of this encounter Care Teams Shank Inspector Relationship Specialty Start Date End Date Payal Walker ANP 230 [place] [address] PCP - General Family Medicine 11/20/21 08/04/23 Neptali Palomo DMD [address] [place] [address] Dentist 05/18/24 documented as of this encounter
--- OUTSIDE RECORDS SUMMARY | 2024-12-18 10:41 | XMS_ITS | Encounter Summary ---
Author Organization [employer] [facility] Address [address] [place] [address] 7 [place] [address] Care Team Providers Care Auto Parts Salesperson Name Role Phone Payal Walker Primary Care Provider [phone] Neptali Palomo DMD Unavailable [phone] Encounter Details Date Type Department Care Team (Latest Contact Info) Description 10/03/2018 Abstract [facility] CONVERSIONS Dental, Provider, DDS Social History [...] Description 04/20/2025 2:15 PM EST Office Visit [facility] ADULT DENTAL [address] [place] [address] Larry Hopper documented as of this encounter Visit Diagnoses Not on filedocumented in this encounter Care Teams Auto Parts Salesperson Relationship Specialty Start Date End Date Payal Walker ANP 230 [place] [address] PCP - General Family Medicine 11/20/21 08/04/23 Neptali Palomo DMD 505 [place] [address] Dentist 05/18/24 documented as of this encounter
--- OUTSIDE RECORDS SUMMARY | 2024-12-18 10:41 | XMS_ITS | Encounter Summary ---
Author Organization [employer] Address 75 [facility] 7t [place] [address] Care Team Providers Care Renal Social Worker Name Role Phone Neptali Palomo DMD Unavailable [phone] Reason for Visit * Reason Comments Med Refill Encounter Details Date Type Department Care Team (Late st Contact Info) Description 10/22/2023 Refill [facility] MEDICINE 230 [place], [place] [phone] Payal Walker, ANP 230 [place], [place] [phone] Type 2 diabetes mellitus with hyperlipidemia ([facility]/HCC) ([facility]) Social History Tobacco [...] 2:15 PM EST Office Visit [facility] ADULT DENTAL 505 [place] [address] Larry Hopper documented as of this encounter Visit Diagnoses Diagnosis Type 2 diabetes mellitus with hyperlipidemia (CMS/HCC) (CMS/HCC) documented in this encounter Additional Health Concerns Assessment Noted Time PHQ-9 Depression Total Score: 0 08/05/19 2:13 PM EDT documented as of this encounter Care Teams Renal Social Worker Relationship Specialty Start Date End Date Neptali Palomo DMD [address] [place] [address] Dentist 05/18/24 documented as of this encounter
--- OUTSIDE RECORDS SUMMARY | 2024-12-18 10:41 | XMS_ITS | Encounter Summary ---
Author Organization [employer] Address 75 [facility] 7t [place] [address] Care Team Providers Care Plastic Roller Name Role Phone Walker Payal RUANO Primary Care Provider [phone] Neptali Palomo DMD Unavailable [phone] Reason for Visit * Reason Comments Med Refill Encounter Details Date Type Department Care Team ([facility] st Contact Info) Description 06/25/2023 Refill [facility] MEDICINE 230 [place], [place] [phone] Siena Greenwood MD 230 [place], [place] [phone] GERD without esophagitis Social History Tobacco Use [...] Description 04/20/2025 2:15 PM EST Office Visit [facility] ADULT DENTAL 505 [place] [address] Larry Hopper documented as of this encounter Visit Diagnoses Diagnosis GERD without esophagitis Esophageal reflux documented in this encounter Additional Health Concerns Assessment Noted Time PHQ-9 Depression Total Score: 0 08/05/19 2:13 PM EDT documented as of this encounter Care Teams Plastic Roller Relationship Specialty Start Date End Date Payal Walker ANP 230 [place] [address] PCP - General Family Medicine 11/20/21 08/04/23 Neptali Palomo DMD 505 [place] [address] Dentist 05/18/24 documented as of this encounter
--- OUTSIDE RECORDS SUMMARY | 2024-12-18 10:41 | XMS_ITS | Encounter Summary ---
Author Organization [employer] Address 75 [facility] 7t [place] [address] Care Team Providers Care Donor Services Team Leader Name Role Phone Walker Payal RUANO Primary Care Provider [phone] Neptali Palomo DMD Unavailable [phone] Encounter Details Date Type Department Care Team (Late st Contact Info) Description 02/16/2023 Abstract [facility] MEDICINE 230 [place], [place] [phone] Mary Kate Emmanuel Social History Tobacco Use [...] 2:15 PM EST Office Visit [facility] ADULT DENTAL [address] [place] [address] Larry Hopper documented as of this encounter [...] documented as of this encounter Care Teams Donor Services Team Leader Relationship Specialty Start Date End Date Payal Walker ANP 230 [place] [address] PCP - General Family Medicine 11/20/21 08/04/23 Neptali Palomo DMD 505 [place] [address] Dentist 05/18/24 documented as of this encounter
--- OUTSIDE RECORDS SUMMARY | 2024-12-18 10:41 | XMS_ITS | Encounter Summary ---
Author Organization [facility] Address [address] [place] [address] 7 [place] [address] Care Team Providers Care Meter Reading Clerk Name Role Phone Payal Walker Primary Care Provider [phone] Neptali Palomo DMD Unavailable [phone] Encounter Details Date Type Department Care Team (Latest Contact Info) Description 02/12/2020 Abstract [facility] CONVERSIONS Dental, Provider, DDS Social History Tobacco [...] 2:15 PM EST Office Visit [facility] ADULT DENTAL [address] [place] [address] Larry Hopper documented as of this encounter Visit Diagnoses Not on filedocumented in this encounter Care Teams Meter Reading Clerk Relationship Specialty Start Date End Date Payal Walker ANP 230 [place] [address] PCP - General Family Medicine 11/20/21 08/04/23 Neptali Palomo DMD 505 [place] [address] Dentist 05/18/24 documented as of this encounter
--- OUTSIDE RECORDS SUMMARY | 2024-12-18 10:41 | XMS_ITS | Encounter Summary ---
Author Organization [employer] Address 75 [facility] 7t [place] [address] Care Team Providers Care Online Marketing Strategist Name Role Phone Neptali Palomo DMD Unavailable [phone] Reason for Visit * Reason Comments Med Refill Encounter Details Date Type Department Care Team (Late st Contact Info) Description 04/14/2024 Refill [facility] MEDICINE 230 [place], [place] [phone] Payal Walker, ANP 230 [place], [place] [phone] Type 2 diabetes mellitus with hyperlipidemia ([facility]/HCC) ([facility]) Social History Tobacco Use [...] Description 04/20/2025 2:15 PM EST Office Visit [facility] ADULT DENTAL 505 [place] [address] Larry Hopper documented as of this encounter Visit Diagnoses Diagnosis Type 2 diabetes mellitus with hyperlipidemia (CMS/HCC) (CMS/HCC) documented in this encounter Additional Health Concerns Assessment Noted Time PHQ-9 Depression Total Score: 0 08/05/19 2:13 PM EDT documented as of this encounter Care Teams Online Marketing Strategist Relationship Specialty Start Date End Date Neptali Palomo DMD [address] [place] [address] Dentist 05/18/24 documented as of this encounter
--- OUTSIDE RECORDS SUMMARY | 2024-12-18 10:41 | XMS_ITS | Encounter Summary ---
Author Organization [employer] Address 75 [facility] 7t [place] [address] Care Team Providers Care Inventory Control Planner Name Role Phone Neptali Palomo DMD Unavailable [phone] Reason for Visit * Reason Comments Med Refill Encounter Details Date Type Department Care Team (Late st Contact Info) Description 11/01/2023 Refill [facility] MEDICINE 230 [place], [place] [phone] Payal Walker, ANP 230 [place], [place] [phone] Primary hypertension Social History Tobacco Use Types [...] Description 04/20/2025 2:15 PM EST Office Visit [facility] ADULT DENTAL 505 [place] [address] Larry Hopper documented as of this encounter Visit Diagnoses Diagnosis Primary hypertension Unspecified essential hypertension documented in this encounter Additional Health Concerns Assessment Noted Time PHQ-9 Depression Total Score: 0 08/05/19 2:13 PM EDT documented as of this encounter Care Teams Inventory Control Planner Relationship Specialty Start Date End Date Neptali Palomo DMD 505 [place] [address] Dentist 05/18/24 documented as of this encounter
== END 2024-12-18 09:56 | disposition home or self-care (01) ==
PROVIDERS: PCP Nurse Practitioner Family; Visit Provider Physician Assistant Medical
DX: J06.9 Acute upper respiratory infection, unspecified (principal)

== ENCOUNTER 2024-12-18 09:06 | Outpatient (REF) | payer OTHER, SELFPAY ==
[2024-12-18 14:51] LABS: Chlamydia pneumoniae PCR Not Detected (Not Detect.); Coronavirus 229E PCR Not Detected (Not Detect.); Coronavirus HKU1 PCR Not Detected (Not Detect.); Coronavirus NL63 PCR Not Detected (Not Detect.); Coronavirus OC43 PCR Not Detected (Not Detect.); RSV PCR Not Detected (Not Detect.); Rhino/Enterovirus PCR Detected (Not Detect.)
[2024-12-18 15:09] LABS: Influenza A H1 PCR Not Detected (Not Detect.); Influenza A H1-2009 PCR Not Detected (Not Detect.); Influenza A H3 PCR Not Detected (Not Detect.); SARS-CoV-2 PCR Not Detected (Not Detect.)
== END 2024-12-18 09:07 | disposition home or self-care (01) ==
LOC: HO.LNP 09:06
PROVIDERS: PCP Nurse Practitioner Family; Visit Provider Physician Assistant Medical
DX: J06.9 Acute upper respiratory infection, unspecified (principal); Z87.891 Personal history of nicotine dependence
CPT/HCPCS: 87633; 99212

== ENCOUNTER 2024-12-20 07:09 | Outpatient (REF) | payer OTHER, SELFPAY ==
--- OUTSIDE RECORDS SUMMARY | 2024-12-20 07:12 | XMS_ITS | Encounter Summary ---
Author Organization [employer] Address 75 [facility] 7t [place] [address] Care Team Providers Care Funeral Director Name Role Phone Neptali Palomo DMD Unavailable [phone] Reason for Visit * Reason Comments Med Refill Encounter Details Date Type Department Care Team (Late st Contact Info) Description 11/04/2023 Refill [facility] MEDICINE 230 [place], [place] [phone] Payal Walker, ANP 230 [place], [place] [phone] Type 2 diabetes mellitus with hyperlipidemia ([facility]/HCC) ([facility]) Social History Tobacco Use Types Packs/Day Years [...] Description 04/20/2025 2:15 PM EST Office Visit [facility] ADULT DENTAL 505 [place] [address] Larry Hopper documented as of this encounter Visit Diagnoses Diagnosis Type 2 diabetes mellitus with hyperlipidemia (CMS/HCC) (CMS/HCC) documented in this encounter Additional Health Concerns Assessment Noted Time PHQ-9 Depression Total Score: 0 08/05/19 2:13 PM EDT documented as of this encounter Care Teams Funeral Director Relationship Specialty Start Date End Date Neptali Palomo DMD [address] [place] [address] Dentist 05/18/24 documented as of this encounter
--- OUTSIDE RECORDS SUMMARY | 2024-12-20 07:12 | XMS_ITS | Encounter Summary ---
Author Organization [employer] Address 75 [facility] 7t [place] [address] Care Team Providers Care Roll Press Operator Name Role Phone Aaron Payal RUANO Primary Care Provider [phone] Neptali Palomo DMD Unavailable [phone] Reason for Visit * Reason Comments Med Refill Encounter Details Date Type Department Care Team (Late st Contact Info) Description 10/20/2022 Refill [facility] MEDICINE 230 [place], [place] [phone] [facility] 230 [place], [place] [phone] Social History Tobacco Use Types Packs/Day Years [...] Description 04/20/2025 2:15 PM EST Office Visit [facility] ADULT D[facility] [address] [place] [address] Larry Hopper documented as of this encounter Visit Diagnoses Not on filedocumented in this encounter Additional Health Concerns Assessment Noted Time PHQ-9 Depression Total Score: 0 08/05/19 23 2:13 PM EDT documented as of this encounter Care Teams Roll Press Operator Relationship Specialty Start Date End Date Payal Walker ANP 230 [place] [address] PCP - General Family Medicine 11/20/21 08/04/23 Neptali Palomo DMD [address] [place] [address] Dentist 05/18/24 documented as of this encounter
--- OUTSIDE RECORDS SUMMARY | 2024-12-20 07:12 | XMS_ITS | Encounter Summary ---
Author Organization [employer] Address 75 [facility] 7t [place] [address] Care Team Providers Care Disciplinary Hearing Officer Name Role Phone Neptali Palomo DMD Unavailable [phone] Reason for Visit * Reason Comments Med Refill Encounter Details Date Type Department Care Team (Late st Contact Info) Description 01/28/2024 Refill [facility] MEDICINE 230 [place], [place] [phone] Payal Walker, ANP [address] [place], [place] [phone] Type 2 diabetes mellitus with hyperlipidemia ([facility]/HCC) ([facility]) Social History Tobacco Use Types [...] 2:15 PM EST Office Visit [facility] ADULT DENTAL 505 [place] [address] Larry Hopper documented as of this encounter Visit Diagnoses Diagnosis Type 2 diabetes mellitus with hyperlipidemia (CMS/HCC) (CMS/HCC) documented in this encounter Additional Health Concerns Assessment Noted Time PHQ-9 Depression Total Score: 0 08/05/19 2:13 PM EDT documented as of this encounter Care Teams Disciplinary Hearing Officer Relationship Specialty Start Date End Date Neptali Palomo DMD [address] [place] [address] Dentist 05/18/24 documented as of this encounter
--- OUTSIDE RECORDS SUMMARY | 2024-12-20 07:12 | XMS_ITS | Encounter Summary ---
Author Organization [employer] Address 75 [facility] 7t [place] [address] Care Team Providers Care Bronc Buster Name Role Phone Neptali Palomo DMD Unavailable Reason for Visit * Reason Comments Med Refill Encounter Details Date Type Department Care Team (Late st Contact Info) Description 01/28/2024 Refill [facility] MEDICINE 230 [place], [place] [phone] Payal Walker, ANP 230 [place], [place] [phone] Social History Tobacco Use Types Packs/Day Years [...] 04/20/2025 2:15 PM EST Office Visit [facility] ADULT DENTAL 505 [place] [address] Larry Hopper documented as of this encounter Visit Diagnoses Not on filedocumented in this encounter Additional Health Concerns Assessment Noted Time PHQ-9 Depression Total Score: 0 08/05/19 2:13 PM EDT documented as of this encounter Care Teams Bronc Buster Relationship Specialty Start Date End Date Neptali Palomo DMD 505 [place] [address] Dentist 05/18/24 documented as of this encounter
--- OUTSIDE RECORDS SUMMARY | 2024-12-20 07:12 | XMS_ITS | Encounter Summary ---
Author Organization [employer] Address [address] [facility] 7t [place] [address] Care Team Providers Care Explosives Worker Name Role Phone Neptali Palomo DMD Unavailable Reason for Visit * Reason Comments Med Refill Encounter Details Date Type Department Care Team (Late st Contact Info) Description 12/09/2023 Refill [facility] MEDICINE 230 [place], [place] [phone] Payal Walker, ANP 230 [place], [place] [phone] Type 2 diabetes mellitus with hyperlipidemia ([facility]/HCC) ([facility]); Primary hypertension Social History Tobacco Use Types [...] Description 04/20/2025 2:15 PM EST Office Visit [facility] ADULT DENTAL [address] [place] [address] Larry Hopper documented as of this encounter Visit Diagnoses Diagnosis Type 2 diabetes mellitus with hyperlipidemia (CMS/HCC) (CMS/HCC) Primary hypertension Unspecified essential hypertension documented in this encounter Additional Health Concerns Assessment Noted Time PHQ-9 Depression Total Score: 0 08/05/19 2:13 PM EDT documented as of this encounter Care Teams Explosives Worker Relationship Specialty Start Date End Date Neptali Palomo DMD [address] [place] [address] Dentist 05/18/24 documented as of this encounter
--- OUTSIDE RECORDS SUMMARY | 2024-12-20 07:13 | XMS_ITS | Encounter Summary ---
Author Organization [employer] Address 75 [facility] 7t [place] [address] Care Team Providers Care Contractor General Engineering Name Role Phone Walker Payal RUANO Primary Care Provider [phone] Neptali Palomo DMD Unavailable [phone] Encounter Details Date Type Department Care Team (Late st Contact Info) Description 02/16/2023 Abstract [facility] MEDICINE 230 [place], [place] [phone] Mary Kate Emmanuel Social History Tobacco Use [...] 2:15 PM EST Office Visit [facility] ADULT DENTAL [address] [place] [address] Larry Hopper documented as of this encounter [...] documented as of this encounter Care Teams Contractor General Engineering Relationship Specialty Start Date End Date Payal Walker ANP 230 [place] [address] PCP - General Family Medicine 11/20/21 08/04/23 Neptali Palomo DMD 505 [place] [address] Dentist 05/18/24 documented as of this encounter
--- OUTSIDE RECORDS SUMMARY | 2024-12-20 07:13 | XMS_ITS | Encounter Summary ---
Author Organization [employer] [facility] Address [address] [place] [address] 7 [place] [address] Care Team Providers Care Manager Reading Name Role Phone Payal Walker Primary Care Provider [phone] Neptali Palomo DMD Unavailable [phone] Encounter Details Date Type Department Care Team (Latest Contact Info) Description 10/03/2018 Abstract [facility] CONVERSIONS Dental, Provider, DDS Social History Tobacco [...] Description 04/20/2025 2:15 PM EST Office Visit [facility] ADULT DENTAL [address] [place] [address] Larry Hopper documented as of this encounter Visit Diagnoses Not on filedocumented in this encounter Care Teams Manager Reading Relationship Specialty Start Date End Date Payal Walker ANP 230 [place] [address] PCP - General Family Medicine 11/20/21 08/04/23 Neptali Palomo DMD [address] [place] [address] Dentist 05/18/24 documented as of this encounter
--- OUTSIDE RECORDS SUMMARY | 2024-12-20 07:13 | XMS_ITS | Encounter Summary ---
Author Organization [employer] Address 75 [facility] 7t [place] [address] Care Team Providers Care Instrumentation Instructor Name Role Phone Neptali Palomo DMD Unavailable Reason for Visit * Reason Comments Med Refill Encounter Details Date Type Department Care Team (Late st Contact Info) Description 04/14/2024 Refill [facility] MEDICINE 230 [place], [place] [phone] Payal Walker, ANP 230 [place], [place] [phone] Type 2 diabetes mellitus with hyperlipidemia ([facility]/HCC) ([facility]) Social History Tobacco Use Types Packs/Day [...] Visit [facility] ADULT DENTAL 505 [place] [address] Larry Hopper documented as of this encounter Visit Diagnoses Diagnosis Type 2 diabetes mellitus with hyperlipidemia (CMS/HCC) (CMS/HCC) documented in this encounter Additional Health Concerns Assessment Noted Time PHQ-9 Depression Total Score: 0 08/05/19 2:13 PM EDT documented as of this encounter Care Teams Instrumentation Instructor Relationship Specialty Start Date End Date Neptali Palomo DMD [address] [place] [address] Dentist 05/18/24 documented as of this encounter
--- OUTSIDE RECORDS SUMMARY | 2024-12-20 07:13 | XMS_ITS | Encounter Summary ---
Author Organization [employer] Address 75 [facility] 7t [place] [address] Care Team Providers Care Patient Services Manager Name Role Phone Neptali Palomo DMD Unavailable [phone] Reason for Visit * Reason Comments Med Refill Encounter Details Date Type Department Care Team (Late st Contact Info) Description 11/01/2023 Refill [facility] MEDICINE 230 [place], [place] [phone] Payal Walker, ANP 230 [place], [place] [phone] Primary hypertension Social History Tobacco Use Types [...] [facility] 505 [place] [address] Larry Hopper documented as of this encounter Visit Diagnoses Diagnosis Primary hypertension Unspecified essential hypertension documented in this encounter Additional Health Concerns Assessment Noted Time PHQ-9 Depression Total Score: 0 08/05/19 2:13 PM EDT documented as of this encounter Care Teams Patient Services Manager Relationship Specialty Start Date End Date Neptali Palomo DMD [address] [place] [address] Dentist 05/18/24 documented as of this encounter
--- OUTSIDE RECORDS SUMMARY | 2024-12-20 07:13 | XMS_ITS | Clinical Summary ---
Author Organization [employer] Address [address] [facility] 7t [place] [address] Care Team Providers Care Beater Worker Helper Name Role Phone Neptali Palomo DMD Unavailable [phone] Allergies Active Allergy Reactions Criticality Noted [...] ype 2 diabetes mellitus with hyperlipidemia (CMS/HCC) ([facility]) Use 1 by To Skin route once daily 100 each 3 05/14/19 23 Active Blood Glucose Monitoring Suppl (FreeStyle Lite) w/Device kitIndications:Typ e 2 diabetes mellitus without complication, unspecified whether intermediate accountant insulin use (CMS/[facility]) 1 each before breakfast, before lunch, and before evening meal. 1 kit 07/11/19 23 Active Continuous Blood Gluc Glass Artist (FreeStyle Agatha 2 [place]) deviceIndications: Type 2 diabetes mellitus with hyperlipidemia (CMS/HCC) (CMS/[facility]) 1 each 5 (five) times a day. 1 each 07/28/19 23 Active Continuous Blood Gluc Sensor (FreeStyle Agatha 2 Sensor) miscIndications:Ty pe 2 diabetes mellitus with hyperlipidemia (CMS/HCC) ([facility]) 1 each every 14 (fourteen) [...] tabletIndications: Type 2 diabetes mellitus with hyperlipidemia ([facility]/HCC) (CMS/HCC) TAKE 1 TABLET BY MOUTH DAILY [...] fasting and chem -referred to neurologist at [facility] stroke f up and to f CT ,MRI findings --unsure if actual aneurysm in CTA? 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 Mild nodularity increases suspicion for cirrhosis Encounters Date Type Department Care Team Description 10/18/2024 1:00 PM EDT Office Visit [facility] ADULT DENTAL [address] [place] [address] Larry Hopper Dental calculus (Primary Dx); Periodontal [...] 2:15 PM EST Office Visit [facility] ADULT DENTAL [address] [place] [address] Larry Hopper Health Maintenance Due Date Last [...] 9:03 AM EDT) Creatinine, Urine 89.78 mg/dL [facility] Microalbumin Urine 59.0 mg/L [facility] Microalbum Creatinine Ratio Ur 65.7 ug/mg cr [facility] Comment:Albumin/Creatinine R atio Reference Ranges: Normal: < 30 ug/mg creatinine Microalbuminuria: 30 - 300 ug/mg creatinineClinical Albuminuria: > 300 ug/mg creatinine 08/19/2022 9:03 AM EDT 08/19/2022 11:06 AM EDT [facility] External Provider LAB URI NE ORDERABLES Final Result Performing Organization Address [facility] Co de Phone Number [facility] [address] [place] [address] [phone] * Hemoglobin A1c (08/19/2022 9:03 AM EDT) Hemoglobin A1c 7.3 % [facility] Comment:Hemoglobin A1C Refer ence Range Adults: 4.8 - 6.0 % Non diabetic: < 6.0 % Goal: < 7.0 %Additional Action Suggested: > 8.0 %Note: Hemoglobin A1c results are invalid for patients with abnormal amounts of HbF. Blood transfusions may impact the HbA1c concentration in the patient sample. Estimated Average Glucose 163 mg/dL [facility] Comment:eAG = Estimated ave rage glucose which is %A1C expressed asaverage glucose, using the formula of the J5W-VnhhgbeQyexzzt Glucose study (ADAG), Diabetes Care, Vol.31,#8,Oct. 2007 08/19/2022 9:03 AM EDT 08/19/2022 11:12 AM EDT [facility] External Provider LAB BLO OD ORDERABLES Final Result Performing Organization Address [facility] Co de Phone Number [facility] [address] [place] [address] [phone] * Lipid Panel, Standard (08/19/2022 9:03 AM EDT) Triglycerides 91 mg/dL [facility] Comment:Desirable Triglyceri de: less than 150 mg/dLBorderline High Triglyceride 150-199 mg/dLHigh Triglyceride: 200-499 mg/dLVery High Triglyceride: greater than or equal to 5OO mg/dL Cholesterol 186 mg/dL [facility] Comment:Desirable Cholestero l: less than 200 mg/dLBorderline High Cholesterol: 200-239 mg/dLHigh Cholesterol: greater than 239 mg/dL LDL Cholesterol Calculated 129 mg/dl [facility] Comment:Desirable LDL: less than 100 mg/dLNear Optimal/Above Optimal LDL: 110- 129 mg/dLBorderline High LDL: 130-159 mg/dLHigh LDL: 160-189 mg/dLVery High LDL: greater than or equal to 190 mg/dL HDL Cholesterol 39 mg/dL [facility] Comment:Desirable HDL: great er than 40 mg/dL Note: This HDL assay may give artificially low results in patients with liver disease. 08/19/2022 9:03 AM EDT 08/19/2022 11:12 AM EDT [facility] External Provider LAB BLO OD ORDERABLES Final Result Performing Organization Address [facility] Co de Phone Number [facility] [address] [place] [address] [phone] * HEPATITIS C AB W/REFL TO HCV RNA, QN, PCR (07/16/2020 9:56 AM EDT) HEPATITIS C ANTIBODY NON-REACT DEN NON-REACT DEN [facility] INDEX 0.02 <1.00 [facility] Comment: HCV antibody was non-reactive. There is no laboratory evidence of HCV infection. In most cases, no further action is required. However, if recent HCV exposure is suspected, a test for HCV RNA (test code 64771) is suggested. For additional information please refer to http://education.[employer].CirclePublish/faq/OOV70x5 (This link is being provided for informational/ educational purposes only.) 07/16/2020 9:56 AM EDT Davida Webb [employer]OC[employer]ATE HISTORICAL/NON ORDERABLE LABS Final Result Performing Organization Address City/[facility] Co de Phone Number [facility] [address] [place] [address] * Colonoscopy (05/01/2016) Colonoscopy Normal Normal Narrative Mary Kate Emmanuel - 05/01/2016 Repeat in 10 years Historical Provider HEALTH MAINTENANCE Final Result from Last 3 Months or Most Recently Relevant to Health Maintenance Insurance [facility] MEDICARE DENTAL-[facility] MEDICAID STAND ADULT DC Care Teams Beater Worker Helper Relationship Specialty Start Date End Date Neptali Palomo DMD [address] [place] [id number] Dentist 05/18/24
--- OUTSIDE RECORDS SUMMARY | 2024-12-20 07:13 | XMS_ITS | Encounter Summary ---
Author Organization [employer] Address [address] [facility] 7[address] [place] [address] Care Team Providers Care Entry Level Administrative Assistant Name Role Phone Neptali Palomo DMD Unavailable [phone] Reason for Visit * Reason Comments Med Refill Encounter Details Date Type Department Care Team (Late st Contact Info) Description 10/22/2023 Refill [facility] [address] [place], [place] [phone] Payal Walker, ANP [address] [place], [place] [phone] Type 2 diabetes mellitus with hyperlipidemia ([facility]/HCC) ([facility]) Social History Tobacco Use Types [...] Office Visit [facility] ADULT DENTAL [address] [place] [address] Larry Hopper documented as of this encounter Visit Diagnoses Diagnosis Type 2 diabetes mellitus with hyperlipidemia (CMS/HCC) (CMS/HCC) documented in this encounter Additional Health Concerns Assessment Noted Time PHQ-9 Depression Total Score: 0 08/05/19 2:13 PM EDT documented as of this encounter Care Teams Entry Level Administrative Assistant Relationship Specialty Start Date End Date Neptali Palomo DMD [address] [place] [address] Dentist 05/18/24 documented as of this encounter
--- OUTSIDE RECORDS SUMMARY | 2024-12-20 07:13 | XMS_ITS | Encounter Summary ---
Author Organization [facility] Address [address] [place] [address] 7 [place] [address] Care Team Providers Care Online Media Director Name Role Phone Payal Walker Primary Care Provider [phone] Neptali Palomo DMD Unavailable [phone] Encounter Details Date Type Department Care Team (Latest Contact Info) Description 02/12/2020 Abstract [facility] Dental, Provider, DDS Social History [...] Description 04/20/2025 2:15 PM EST Office Visit [facility] ADULT DENTAL [address] [place] [address] Larry Hopper documented as of this encounter Visit Diagnoses Not on filedocumented in this encounter Care Teams Online Media Director Relationship Specialty Start Date End Date Payal Walker ANP [address] [place] [address] PCP - General Family Medicine 11/20/21 08/04/23 Neptali Palomo DMD [address] [place] [address] Dentist 05/18/24 documented as of this encounter
--- OUTSIDE RECORDS SUMMARY | 2024-12-20 07:13 | XMS_ITS | Encounter Summary ---
Author Organization [employer] Address [address] [facility] [address] [place] [address] Care Team Providers Care Rim Buster Name Role Phone Walker Payal RUANO Primary Care Provider [phone] Neptali Palomo DMD Unavailable [phone] Reason for Visit * Reason Comments Med Refill Encounter Details Date Type Department Care Team ([facility] st Contact Info) Description 06/25/2023 Refill [facility] MEDICINE [address] [place], [place] [phone] Siena Greenwood MD [address] [place], [place] [phone] GERD without esophagitis Social History Tobacco Use [...] Description 04/20/2025 2:15 PM EST Office Visit [facility] ADULT DENTAL [address] [place] [address] Larry Hopper documented as of this encounter Visit Diagnoses Diagnosis GERD without esophagitis Esophageal reflux documented in this encounter Additional Health Concerns Assessment Noted Time PHQ-9 Depression Total Score: 0 08/05/19 2:13 PM EDT documented as of this encounter Care Teams Rim Buster Relationship Specialty Start Date End Date Payal Walker ANP [address] [place] [address] PCP - General Family Medicine 11/20/21 08/04/23 Neptali Palomo DMD [address] [place] [address] Dentist 05/18/24 documented as of this encounter
== END 2024-12-20 07:10 | disposition home or self-care (01) ==
LOC: HO.HMGCLDS 07:09
PROVIDERS: PCP Nurse Practitioner Family; Visit Provider Internal Medicine Endocrinology, Diabetes & Metabolism
DX: E11.21 Type 2 diabetes mellitus with diabetic nephropathy (principal); Z79.4 Long term (current) use of insulin
CPT/HCPCS: 36415; 82947; 84681; 99211

== ENCOUNTER 2024-12-20 09:38 | Outpatient (AMB) | payer OTHER, SELFPAY ==
--- NOTE | 2024-12-20 10:37 | MHC.AMDMED ---
Intake Intake Visit Reasons: 60 min Records Management Technician Required: Yes Records Management Technician Language: Preflight Inspector Name: Romy [facility] Accompanied by: Self / Same As Patient Allergies codeine (CODEINE) Allergy (Intermediate, Verified 12/18/24 09:11) TACHYCARDIA HPI Comprehensive Diabetes Asmnt Most Recent Diabetes Results: Cholesterol, (<200) 181 mg/dL 11/16/24 HDL Cholesterol, (>40) 40 mg/dL L 11/16/24 Triglycerides, (<150) 82 mg/dL 11/16/24 [facility] Medical History Palpitations Pancreatitis Arthritis GERD (gastroesophageal reflux disease) CVA (cerebral vascular accident) Microalbuminuric diabetic nephropathy Type II diabetes with retirement use of insulin Erectile dysfunction Vitamin D deficiency Multinodular thyroid Other and unspecified hyperlipidemia Essential hypertension Aortic valve calcification Surgical History History of esophagogastroduodenoscopy (EGD) H/O colonoscopy Family History Father Stroke Brother Stroke Mother Diabetes Social History Household Members: Spouse Housing: House Alcohol intake: never Patient Tobacco Use Status: Former Tobacco user e-Cigarette/Vaping Use: Never Used service: No Current occupational status: disabled Cognitive needs: No Hearing needs: No Vision needs: Yes Assessment & Plan Assessment & Plan (1) Type 2 diabetes mellitus with unspecified complications: Code(s): E11.8 - Type 2 diabetes mellitus with unspecified complications Plan: Personal Continuous Glucose Monitor: Patients CGM information reviewed, Pt uses Patient had C-peptide and fasting blood sugar drawn, patient's fasting blood sugar at the time of draw was 170 mg/dL Explained to patient if it is still interested in insulin pump therapy he should have labs redrawn with a fasting blood sugar under 110 mg/dL At this time patient is not interested in pursuing insulin pump therapy Patient continues to have postprandial hyperglycemia See adjusted sliding scale below Patient asked rules regarding testing urine for ketones. Reviewed info below: DIABETES PROBLEMS HOMECARE INSTRUCTIONS? for High Blood Sugar and When to Test for Ketones Hyperglycemia is the technical term for high blood glucose (blood sugar). High blood sugar happens when the body has too little insulin or when the body can't use insulin properly. What causes hyperglycemia? A number of things can cause hyperglycemia: If you have type 1, you may not have given yourself enough insulin. ? If you have type 2, your body may have enough insulin, but it is not as effective as it should be. You ate more than planned or exercised less than planned. You have stress from an illness, such as a cold or flu. You have other stress, such as family conflicts or school or dating problems. How to lower your blood sugar level. ? Take medications as directed by physician. ? Drink extra water or noncaffeinated, nonsugared drinks to prevented hydration. ? Exercise if you are not sick However, if your blood sugar is above 250 mg/dl, check your urine for ketones. If you have ketones, do not exercise Exercising when ketones are present may make your blood sugar level go even higher. You'll need to work with your doctor to find the safest way for you to lower your blood sugar level. Regularly check blood sugar or urine for sugar and acetone during illness. Diabetic ketoacidosis (DKA) Is serious condition that can lead to diabetic coma (passing out for a long time) or even . When your cells don't get the glucose they need for energy, your body begins to burn fat for energy, which produces ketones. Ketones are chemicals that the body creates when it breaks down fat to use for energy. The body does this when it doesn?t have enough insulin to use glucose, the body?s normal source of energy. When ketones build up in the blood, they make it more acidic. They are a warning sign that your diabetes is out of control or that you are getting sick. Symptoms of Diabetic Ketoacidosis (DKA) ? DKA usually develops slowly. But when vomiting occurs, this life-threatening condition can develop in a few hours. Early symptoms include the following: ? Thirst or a very dry mouth ? Frequent urination ? High blood glucose (blood sugar) levels ? High levels of ketones in the urine ? Then, other symptoms appear: ? Constantly feeling tired ? Dry or flushed skin ? Nausea, vomiting, or abdominal pain ? (Vomiting can be caused by many illnesses, not just ketoacidosis. If vomiting continues for more than 2 hours, contact your health care provider.) ? Difficulty breathing ? Fruity odor on breath ? A hard time paying attention, or confusion When should you test for ketones? It is advisable to check for ketones under the following conditions when: Your blood glucose is higher than 250mg/dl. Feeling nauseated, throwing up, or have pains in your abdominal region. Have a cold or flu. Have general body fatigue. Feel thirsty or have a very dry mouth. Have flushed skin. Have a fruity breath or a hard time breathing. You feel perplexed or in fog. How to Test Urine for Ketones You can detect ketones with a simple urine test using a test strip, similar to a blood testing strip. Ask your health care provider when and how you should test for ketones. Many experts advise to check your urine for ketones when your blood glucose is more than 250 mg/dl. When you are ill (when you have a cold or the flu, for example), check for ketones every 4 to 6 hours. And check every 4 to 6 hours when your blood sugar is more than 250 mg/dl. Also, check for ketones when you have any symptoms of DKA. How to lower your blood sugar level. ? Take medications as directed by physician. ? Drink extra water or noncaffeinated, nonsugared drinks to prevented hydration. ? Exercise if you are not sick However, if your blood sugar is above 250 mg/dl, check your urine for ketones. If you have ketones, do not exercise Exercising when ketones are present may make your blood sugar level go even higher. You'll need to work with your doctor to find the safest way for you to lower your blood sugar level. Regularly check blood sugar or urine for sugar and acetone during illness Patient able to insert sensor independently at home without issue.? Portions of this note were created using voice recognition software, please excuse any words or phrases that may have been misinterpreted. Patient Instructions: Admelog Scale: 80-150 12 units 151-200 14 units 201-300 16 units over 300 18 units subcutaneously 3 times a day Coding Level of Care Code Est Pt Level 1 (78126) Diagnoses Type 2 diabetes mellitus with unspecified complications E11.8
== END 2024-12-20 10:52 | disposition home or self-care (01) ==
LOC: HO.ENCR 09:39
PROVIDERS: PCP Nurse Practitioner Family; Visit Provider Registered Nurse Diabetes Educator
DX: E11.8 Type 2 diabetes mellitus with unspecified complications (principal)

== ENCOUNTER 2024-12-29 09:08 | Outpatient (REF) | payer OTHER, SELFPAY ==
--- OUTSIDE RECORDS SUMMARY | 2024-12-29 09:35 | XMS_ITS | Encounter Summary ---
Author Organization [employer] Address [address] [facility] 7t [place] [address] Care Team Providers Care Hide Salter Name Role Phone Neptali Palomo DMD Unavailable [phone] Reason for Visit * Reason Comments Med Refill Encounter Details Date Type Department Care Team (Late st Contact Info) Description 11/04/2023 Refill [facility] MEDICINE [address] [place], [place] [phone] Payal Walker, ANP [address], [place] [phone] Type 2 diabetes mellitus with hyperlipidemia ([facility]/HCC) ([facility]) Social History Tobacco Use [...] Description 04/20/2025 2:15 PM EST Office Visit [facility] ADULT DENTAL [address] [place] [address] Larry Hopper documented as of this encounter Visit Diagnoses Diagnosis Type 2 diabetes mellitus with hyperlipidemia (HCC) documented in this encounter Additional Health Concerns Assessment Noted Time PHQ-9 Depression Total Score: 0 08/05/19 2:13 PM EDT documented as of this encounter Care Teams Hide Salter Relationship Specialty Start Date End Date Neptali Palomo DMD [address] [place] [address] Dentist 05/18/24 documented as of this encounter
--- OUTSIDE RECORDS SUMMARY | 2024-12-29 09:35 | XMS_ITS | Encounter Summary ---
Author Organization [employer] Address [address] [facility] [address] [place] [address] Care Team Providers Care Hip Hop Dancer Name Role Phone Neptali Palomo DMD Unavailable [phone] Reason for Visit * Reason Comments Med Refill Encounter Details Date Type Department Care Team (Late st Contact Info) Description 01/28/2024 Refill [facility] MEDICINE [address] [place], [place] [phone] Payal Walker, ANP [address] [place], [place] [phone] Social History Tobacco Use Types Packs/Day Years [...] 2:15 PM EST Office Visit [facility] ADULT DENTAL [address] [place] [address] Larry Hopper documented as of this encounter Visit Diagnoses Not on filedocumented in this encounter Additional Health Concerns Assessment Noted Time PHQ-9 Depression Total Score: 0 08/05/19 2:13 PM EDT documented as of this encounter Care Teams Hip Hop Dancer Relationship Specialty Start Date End Date Neptali Palomo DMD [address] [place] [address] Dentist 05/18/24 documented as of this encounter
--- OUTSIDE RECORDS SUMMARY | 2024-12-29 09:35 | XMS_ITS | Encounter Summary ---
Author Organization [employer] Address [address] [facility] 7t [place] [address] Care Team Providers Care Senior Grants Officer Name Role Phone Aaron Payal RUANO Primary Care Provider [phone] Neptali Palomo DMD Unavailable [phone] Reason for Visit * Reason Comments Med Refill Encounter Details Date Type Department Care Team (Late st Contact Info) Description 10/20/2022 Refill [facility] MEDICINE [address] [place], [place] [phone] [facility] [address] [place], [place] [phone] Social History Tobacco Use Types Packs/Day Years [...] 2:15 PM EST Office Visit [facility] ADULT DENTAL [address] [place] [address] Larry Hopper documented as of this encounter Visit Diagnoses Not on filedocumented in this encounter Additional Health Concerns Assessment Noted Time PHQ-9 Depression Total Score: 0 08/05/19 23 2:13 PM EDT documented as of this encounter Care Teams Senior Grants Officer Relationship Specialty Start Date End Date Payal Walker ANP [address] [place] [address] PCP - General Family Medicine 11/20/21 08/04/23 Neptali Palomo DMD [address] [place] [id number] Dentist 05/18/24 documented as of this encounter
--- OUTSIDE RECORDS SUMMARY | 2024-12-29 09:35 | XMS_ITS | Encounter Summary ---
Author Organization [employer] Address [address] [facility] [address]t [place] [address] Care Team Providers Care Measurement Specialist Name Role Phone Neptali Palomo DMD Unavailable [phone] Reason for Visit * Reason Comments Med Refill Encounter Details Date Type Department Care Team (Late st Contact Info) Description 12/09/2023 Refill [facility] MED[facility]INE [address] [place], [place] [phone] Payal Walker, ANP [address] [place], [place] [phone] Type 2 diabetes mellitus with hyperlipidemia ([facility]HCC) ([facility]); Primary hypertension Social History Tobacco Use [...] [facility] ADULT D[facility] [address] [place] [address] Larry Hopper documented as of this encounter Visit Diagnoses Diagnosis Type 2 diabetes mellitus with hyperlipidemia (HCC) Primary hypertension Unspecified essential hypertension documented in this encounter Additional Health Concerns Assessment Noted Time PHQ-9 Depression Total Score: 0 08/05/19 2:13 PM EDT documented as of this encounter Care Teams Measurement Specialist Relationship Specialty Start Date End Date Neptali Palomo DMD [address] [place] [address] Dentist 05/18/24 documented as of this encounter
--- OUTSIDE RECORDS SUMMARY | 2024-12-29 09:35 | XMS_ITS | Encounter Summary ---
Author Organization [employer] Address [address] [facility] 7t [place] [address] Care Team Providers Care Biochemistry Teacher Name Role Phone Neptali Palomo DMD Unavailable [phone] Reason for Visit * Reason Comments Med Refill Encounter Details Date Type Department Care Team (Late st Contact Info) Description 01/28/2024 Refill [facility] MEDICINE [address] [place], [place] [phone] Payal Walker, ANP [address] [place], [place] [phone] Type 2 diabetes mellitus with hyperlipidemia ([facility]/HCC) ([facility]) Social History Tobacco Use [...] Description 04/20/2025 2:15 PM EST Office Visit [facility] ADULT DENTAL [address] [place] [address] Larry Hopper documented as of this encounter Visit Diagnoses Diagnosis Type 2 diabetes mellitus with hyperlipidemia (HCC) documented in this encounter Additional Health Concerns Assessment Noted Time PHQ-9 Depression Total Score: 0 08/05/19 2:13 PM EDT documented as of this encounter Care Teams Biochemistry Teacher Relationship Specialty Start Date End Date Neptali Palomo DMD [address] [place] [address] Dentist 05/18/24 documented as of this encounter
--- OUTSIDE RECORDS SUMMARY | 2024-12-29 09:36 | XMS_ITS | Encounter Summary ---
Author Organization [employer] Address [address] [facility] 7t [place] [address] Care Team Providers Care Patriot Missile [employer]illery Name Role Phone Aaron Payal RUANO Primary Care Provider [phone] Neptali Palomo DMD Unavailable [phone] Encounter Details Date Type Department Care Team (Late st Contact Info) Description 02/16/2023 Abstract [facility] MEDICINE [address] [place], [place] [phone] Mary Kate Emmanuel Social History Tobacco Use [...] [facility] ADULT DENTAL [address] [place] [address] Larry Hopper documented as of this encounter [...] documented as of this encounter Care Teams [employer] Artillery Relationship Specialty Start Date End Date Payal Walker ANP 230 [place] [address] PCP - General Family Medicine 11/20/21 08/04/23 Neptali Palomo DMD 505 [place] [address] Dentist 05/18/24 documented as of this encounter
--- OUTSIDE RECORDS SUMMARY | 2024-12-29 09:36 | XMS_ITS | Encounter Summary ---
Author Organization [employer] Address 75 [facility] 7t [place] [address] Care Team Providers Care Gaming Director Name Role Phone Walker Payal RUANO Primary Care Provider [phone] Neptali Palomo DMD Unavailable [phone] Reason for Visit * Reason Comments Med Refill Encounter Details Date Type Department Care Team (Late st Contact Info) Description 06/25/2023 Refill [facility] MEDICINE 230 [place], [place] [phone] Siena Greenwood MD 230 [place], [place] [phone] GERD without esophagitis Social History Tobacco Use [...] Description 04/20/2025 2:15 PM EST Office Visit [facility] ADULT DENTAL 505 [place] [address] Larry Hopper documented as of this encounter Visit Diagnoses Diagnosis GERD without esophagitis Esophageal reflux documented in this encounter Additional Health Concerns Assessment Noted Time PHQ-9 Depression Total Score: 0 08/05/19 2:13 PM EDT documented as of this encounter Care Teams Gaming Director Relationship Specialty Start Date End Date Payal Walker ANP 230 [place] [address] PCP - General Family Medicine 11/20/21 08/04/23 Neptali Palomo DMD 505 [place] [address] Dentist 05/18/24 documented as of this encounter
--- OUTSIDE RECORDS SUMMARY | 2024-12-29 09:36 | XMS_ITS | Encounter Summary ---
Author Organization [employer] Address 75 [facility] 7t [place] [address] Care Team Providers Care Buttoner Name Role Phone Neptali Palomo DMD Unavailable [phone] Reason for Visit * Reason Comments Med Refill Encounter Details Date Type Department Care Team (Late st Contact Info) Description 11/01/2023 Refill [facility] MEDICINE 230 [place], [place] [phone] Payal Walker, ANP 230 [place], [place] [phone] Primary hypertension Social History Tobacco Use Types [...] [facility] 505 [place] [address] Larry Hopper documented as of this encounter Visit Diagnoses Diagnosis Primary hypertension Unspecified essential hypertension documented in this encounter Additional Health Concerns Assessment Noted Time PHQ-9 Depression Total Score: 0 08/05/19 2:13 PM EDT documented as of this encounter Care Teams Buttoner Relationship Specialty Start Date End Date Neptali Palomo DMD 505 [place] [address] Dentist 05/18/24 documented as of this encounter
--- OUTSIDE RECORDS SUMMARY | 2024-12-29 09:36 | XMS_ITS | Encounter Summary ---
Author Organization [employer] Address 75 [facility] 7t [place] [address] Care Team Providers Care Account Administrator Name Role Phone Neptali Palomo DMD Unavailable [phone] Reason for Visit * Reason Comments Med Refill Encounter Details Date Type Department Care Team (Late st Contact Info) Description 04/14/2024 Refill [facility] MEDICINE 230 [place], [place] [phone] Payal Walker, ANP 230 [place], [place] [phone] Type 2 diabetes mellitus with hyperlipidemia ([facility]/HCC) ([facility]) Social History Tobacco Use Types Packs/Day Years [...] Description 04/20/2025 2:15 PM EST Office Visit [facility] CHC ADULT DENTAL [address] [place] [address] Larry Hopper documented as of this encounter Visit Diagnoses Diagnosis Type 2 diabetes mellitus with hyperlipidemia (HCC) documented in this encounter Additional Health Concerns Assessment Noted Time PHQ-9 Depression Total Score: 0 08/05/19 2:13 PM EDT documented as of this encounter Care Teams Account Administrator Relationship Specialty Start Date End Date Neptali Palomo DMD 505 [place] [address] Dentist 05/18/24 documented as of this encounter
--- OUTSIDE RECORDS SUMMARY | 2024-12-29 09:36 | XMS_ITS | Encounter Summary ---
Author Organization [employer] [facility] Address [address] [place] [address] 7 [place] [address] Care Team Providers Care Fur Tinter Name Role Phone Payal Walker Primary Care Provider [phone] Neptali Palomo DMD Unavailable [phone] Encounter Details Date Type Department Care Team (Latest Contact Info) Description 02/12/2020 Abstract [facility] CONVERSIONS Dental, Provider, DDS [...] Description 04/20/2025 2:15 PM EST Office Visit [facility] CHC ADULT DENTAL [address] [place] [address] Larry Hopper documented as of this encounter Visit Diagnoses Not on filedocumented in this encounter Care Teams Fur Tinter Relationship Specialty Start Date End Date Payal Walker ANP 230 [place] [address] PCP - General Family Medicine 11/20/21 08/04/23 Neptali Palomo DMD 505 [place] [address] Dentist 05/18/24 documented as of this encounter
--- OUTSIDE RECORDS SUMMARY | 2024-12-29 09:36 | XMS_ITS | Clinical Summary ---
Author Organization [employer] Address 75 [facility] 7t [place] [address] Care Team Providers Care Machine Worker Name Role Phone Neptali Palomo DMD Unavailable [phone] Allergies Active Allergy Reactions Criticality Noted [...] stripIndications:T ype 2 diabetes mellitus with hyperlipidemia (HCC) Use 1 by To Skin route once daily 100 each 3 05/14/19 23 Active Blood Glucose Monitoring Suppl (FreeStyle Lite) w/Device kitIndications:Typ e 2 diabetes mellitus without complication, unspecified whether mcfp insulin use 1 each before breakfast, before lunch, and before evening meal. 1 kit 07/11/19 23 Active Continuous Blood Gluc Planer Hand (FreeStyle Agatha 2 John Day) deviceIndications: Type 2 diabetes mellitus with hyperlipidemia (HCC) 1 each 5 (five) times a day. 1 each 07/28/19 23 Active Continuous Blood Gluc Sensor (FreeStyle Agatha 2 Sensor) miscIndications:Ty pe 2 diabetes mellitus with hyperlipidemia (HCC) 1 each every 14 (fourteen) days. 6 [...] tabletIndications: Type 2 diabetes mellitus with hyperlipidemia (HCC) TAKE 1 TABLET BY MOUTH DAILY WITH [...] Abdominal bloating 02/28/2024 Epigastric pain 02/28/2024 Stroke ([facility]) 08/17/2022 Assessment & Plan (08/17/2022 6:42 PM [...] fasting and chem -referred to neurologist at [facility] x stroke f up and to f CT ,MRI findings --unsure if actual aneurysm in CTA? 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 ----to continue care w neurologist -states is following w cardiology for valvular abnormality -from chart review hx of aortic valve calcification-pt states will schedule a f up visit w his cards at [facility] Pituitary microadenoma ([facility]) 08/17/2022 Assessment & Plan (08/17/2022 6:41 PM [...] 10/18/2024 1:00 PM EDT Office Visit [facility] ADULT D[facility]AL [address] [facility] [place] [facility] [place] [address] Larry Hopper Dental calculus (Primary Dx); Periodontal [...] is your housing situation today? I have ingridisabella stack 01/15/[address] you [...] 04/20/2025 2:15 PM EST Office Visit [facility] ADULT DENTAL [address] [place] [address] Larry Hopper Health Maintenance Due Date Last [...] AM EDT) Creatinine, Urine 89.78 mg/dL [facility] Microalbumin Urine 59.0 mg/L [facility] Microalbum Creatinine Ratio Ur 65.7 ug/mg cr [facility] Comment:Albumin/Creatinine R atio Reference Ranges: Normal: < 30 ug/mg creatinine Microalbuminuria: 30 - 300 ug/mg creatinineClinical Albuminuria: > 300 ug/mg creatinine 08/19/2022 9:03 AM EDT 08/19/2022 11:06 AM EDT [facility] External Provider LAB URI NE ORDERABLES Final Result Performing Organization Address [facility] Co de Phone Number [facility] [address] [place] [address] [phone] * Hemoglobin A1c (08/19/2022 9:03 AM EDT) Hemoglobin A1c 7.3 % [facility] Comment:Hemoglobin A1C Refer ence [...] asaverage glucose, using the formula of the Z2P-EidimgiRldzupd Glucose study (ADAG), Diabetes Care, Vol.31,#8,Oct. 2007 08/19/2022 9:03 AM EDT 08/19/2022 11:12 AM EDT [facility] External Provider LAB BLO OD ORDERABLES Final Result Performing Organization Address [facility] Co de Phone Number [facility] [address] [place] [address] [phone] * Lipid Panel, Standard (08/19/2022 9:03 AM EDT) Triglycerides 91 mg/dL [facility] Comment:Desirable Triglyceri de: less than [...] to 190 mg/dL HDL Cholesterol 39 mg/dL [facility] Comment:Desirable HDL: great er than 40 mg/dL Note: This HDL assay may give artificially low results in patients with liver disease. 08/19/2022 9:03 AM EDT 08/19/2022 11:12 AM EDT [facility] External Provider LAB BLO OD ORDERABLES Final Result Performing Organization Address [facility]/ZIP Co de Phone Number [facility] [address] [place] [address] [phone] * HEPATITIS C AB W/REFL TO HCV RNA, QN, PCR (07/16/2020 9:56 AM EDT) HEPATITIS C ANTIBODY NON-REACT DEN NON-REACT DEN [facility] INDEX 0.02 <1.00 [facility] Comment: HCV antibody was non-reactive. There is no laboratory evidence of HCV infection. In most cases, no further action is required. However, if recent HCV exposure is suspected, a test for HCV RNA (test code 88325) is suggested. For additional information please refer to http://education.Diditz.BitInstant/faq/MUQ64q0 (This link is being provided for informational/ educational purposes only.) 07/16/2020 9:56 AM EDT Davida Webb MOLD CLOSER HELPER HISTORICAL/NON ORDERABLE LABS Final Result [facility] [address] [place] [address], * Hm Colonoscopy (05/01/2016) Colonoscopy Normal Normal Narrative Mary Kate Emmanuel - 05/01/2016 Repeat in 10 years Historical Provider HEALTH MAINTENANCE Final Result from Last 3 Months or Most Recently Relevant to Health Maintenance Insurance [facility] STANDARD MEDICARE DENTAL-[facility] MEDICAID STAND ADULT LUIS Gomez [id number] [place] [id number] Care Teams Machine Worker Relationship Specialty Start Date End Date Neptali Palomo DMD [address] [place] [address] LUIS GOMEZ [phone] Dentist 05/18/24
--- OUTSIDE RECORDS SUMMARY | 2024-12-29 09:36 | XMS_ITS | Encounter Summary ---
Author Organization [facility] [facility] Address [address] [place] [address] 7 [place] [address] Care Team Providers Care Gritting Machine Operator Name Role Phone Payal Walker Primary Care Provider [phone] Neptali Palomo DMD Unavailable [phone] Encounter Details Date Type Department Care Team (Latest Contact Info) Description 10/03/2018 Abstract [facility] CONVERSIONS Dental, [...] Description 04/20/2025 2:15 PM EST Office Visit [facility] CHC ADULT DENTAL [address] [place] [address] Larry Hopper documented as of this encounter Visit Diagnoses Not on filedocumented in this encounter Care Teams Gritting Machine Operator Relationship Specialty Start Date End Date Payal Walker ANP [address] [place] [address] PCP - General Family Medicine 11/20/21 08/04/23 Neptali Palomo DMD [address] [place] [address] Dentist 05/18/24 documented as of this encounter
--- OUTSIDE RECORDS SUMMARY | 2024-12-29 09:36 | XMS_ITS | Encounter Summary ---
Author Organization [employer] Address 75 [facility] 7t [place] [address] Care Team Providers Care Refinery Operator Reforming Unit Name Role Phone Neptali Palomo DMD Unavailable [phone] Reason for Visit * Reason Comments Med Refill Encounter Details Date Type Department Care Team (Late st Contact Info) Description 10/22/2023 Refill [facility] MEDICINE [address] [place], [place] [phone] Payal Walker, ANP [address] [place], [place] [phone] Type 2 diabetes mellitus with hyperlipidemia ([facility]/HCC) ([facility]) Social History Tobacco Use Types Packs/Day [...] Description 04/20/2025 2:15 PM EST Office Visit [facility] CHC ADULT DENTAL [address] [place] [address] Larry Hopper documented as of this encounter Visit Diagnoses Diagnosis Type 2 diabetes mellitus with hyperlipidemia (HCC) documented in this encounter Additional Health Concerns Assessment Noted Time PHQ-9 Depression Total Score: 0 08/05/19 2:13 PM EDT documented as of this encounter Care Teams Refinery Operator Reforming Unit Relationship Specialty Start Date End Date Neptali Palomo DMD [address] [place] [address] Dentist 05/18/24 documented as of this encounter
[2024-12-29 10:18] LABS: Appearance Urine Clear; Glucose Urine UA >=1000 mg/dL (Negative); PH 5.5 (5.0-9.0); Specific Gravity - Urine >= 1.030 (1.005-1.025); UMIC TRIGGER UA YES
[2024-12-29 11:03] LABS: Total Protein Urine Random 26 mg/dL (<12)
[2024-12-29 11:16] LABS: Anion Gap 12 (12-20); Blood Urea Nitrogen 21 mg/dL (9-16); Calcium 9.2 mg/dL (8.4-10.2); Carbon Dioxide 29 mmol/L (22-29); Chloride 104 mmol/L (96-108); Estimated Glomerular Filt Rate > 60; Potassium 3.7 mmol/L (3.3-5.1); Sodium 141 mmol/L (135-145)
== END 2024-12-29 09:09 | disposition home or self-care (01) ==
LOC: HO.HMGCLDS 09:08
PROVIDERS: PCP Nurse Practitioner Family; Visit Provider Internal Medicine Hypertension Specialist
DX: R80.9 Proteinuria, unspecified (principal)
CPT/HCPCS: 36415; 80048; 81001; 82570; 84156

== ENCOUNTER 2025-01-02 09:52 | Outpatient (AMB) | payer MEDICARE, MEDICAID, SELFPAY ==
[2025-01-02 10:00] VITALS: BP 110/64; PULSE 82; O2SAT 97; BMI 27.8
--- NOTE | 2025-01-02 10:00 | HO.NEPHOV ---
Vital Signs 01/02/25 10:00 Height 5 ft 8 in Weight 183 lb BMI 27.8 BP 110/64 Blood Pressure Location Lt brachial Position Sitting Pulse 82 Pulse Source Pulse Oximeter Pulse Oximetry (%) 97 Oxygen Delivery Method Room Air Intake Visit Reasons: 6 MO FU confirmed [employer] Required: Yes [employer] Name: Malinda Zavala Accompanied by: Self / Same As Patient Allergies codeine (CODEINE) Allergy (Intermediate, Verified 01/02/25 10:03) TACHYCARDIA Medication List - Last Reconciled 01/02/25 by Trent Benjamin MD acetone (urine) test (Ketone Urine Test strips) As directed for glucose over 250, nausea vomiting or illness t.i.d. Admelog SoloStar U-100 Insulin (insulin lispro) 80-150 10 units 151-200 12 units 201-300 14 units over 300 16 units subcutaneously 3 times a day; 30 days MDD 42 units NS albuterol sulfate 90 mcg/actuation (Ventolin HFA) 2 puffs inhalation Q6H PRN benzonatate 100 mg PO bid-tid PRN 7 days cetirizine-pseudoephedrine 5-120 mg ER 1 tab PO BID 7 days clonazepam 1 mg PO BEDTIME PRN cyclobenzaprine 10 mg PO Q8H dapagliflozin propanediol (Farxiga) 5 mg PO QAM 90 days fluoxetine 40 mg PO DAILY fluticasone propionate 50 mcg/actuation 1 spray intranasal Q12H gabapentin 600 mg PO BEDTIME glucose (Dex4 Glucose) 16 grams (4 x 4 gram) PO Q15M PRN 30 days MDD 16 tablets hydroxyzine HCl 10 mg PO BEDTIME PRN ibuprofen 600 mg PO Q6H PRN losartan 25 mg PO DAILY 30 days omeprazole 20 mg PO DAILY 90 days oxycodone 5 mg PO Q6H PRN pen needle, diabetic As directed pen needle, diabetic for qid NS pioglitazone 15 mg PO DAILY 30 days prednisone 40 mg (2 x 20 mg) PO DAILY 5 days tadalafil 5 mg PO DAILY 90 days tamsulosin 0.4 mg PO BEDTIME 90 days Tresiba FlexTouch U-200 (insulin degludec) 28 units (0.14 mL) subcut BEDTIME NS HPI Comments Details: 63 yr old man with DM found to have proteinuria recently stated on Losartan 25 mg Renal function has been in normal range No new issues today [employer] service was used 01/02/25 - The patient is a 64-year-old male presenting with diabetes management, kidney function evaluation, and proteinuria assessment. - Diabetes mellitus: Blood glucose levels are self-monitored with moderate control. - Chronic kidney disease: Managed with losartan 25 mg, avoiding nephrotoxic medications. - Proteinuria: Under surveillance as part of kidney disease management. [facility] Medical History Palpitations Pancreatitis Arthritis GERD (gastroesophageal reflux disease) CVA (cerebral vascular accident) Microalbuminuric diabetic nephropathy Type II diabetes with long term acute care registered nurse use of insulin Erectile dysfunction Vitamin D deficiency Multinodular thyroid Other and unspecified hyperlipidemia Essential hypertension Aortic valve calcification Surgical History History of esophagogastroduodenoscopy (EGD) H/O colonoscopy Family History Father Stroke Brother Stroke Mother Diabetes Social History Household Members: Spouse Housing: House Alcohol intake: never Patient Tobacco Use Status: Former Tobacco user e-Cigarette/Vaping Use: Never Used service: No Current occupational status: disabled Cognitive needs: No Hearing needs: No Vision needs: Yes Physical Exam Vital Signs: Last Vital Signs Pulse 82 01/02/25 10:00 BP 110/64 01/02/25 10:00 Pulse Ox 97 01/02/25 10:00 Oxygen Delivery Method Room Air 01/02/25 10:00 BMI result Body Mass Index 27.8 Comfortable Neck supple no JVD. Lungs entry equal no rales. Heart S1-S2 heard no gallop or rub. Abdomen soft nontender. Neuro alert awake oriented. No asterixis. Extremities no edema. Results Reviewed Nephrology Results: Sodium, (135-145) 141 mmol/L 12/29/24 Potassium, (3.3-5.1) 3.7 mmol/L 12/29/24 Chloride, (96-108) 104 mmol/L 12/29/24 Carbon Dioxide, (22-29) 29 mmol/L 12/29/24 BUN, (9-16) 21 mg/dL H 12/29/24 Creatinine, (0.5-1.4) 0.86 mg/dL 12/29/24 Calcium, (8.4-10.2) 9.2 mg/dL 12/29/24 Urine Protein, (Neg-Trace) 30 (1+) mg/dL H 12/29/24 Urine Creatinine 114.64 mg/dL 12/29/24 Assessment & Plan Assessment & Plan (1) Proteinuria: Code(s): R80.9 - Proteinuria, unspecified Category: Medical (2) Type 2 diabetes mellitus with unspecified complications: Code(s): E11.8 - Type 2 diabetes mellitus with unspecified complications Category: Medical Plan 64-year-old man with diabetes mellitus with minimal proteinuria most likely due to underlying diabetic kidney disease. Blood pressure is in the normal range. Renal function stable with a creatinine of 0.86 mg/dL. Nondiabetic causes seem less likely at this point. Goal is to slow the progression of the renal disease. Agree with Drew. Maximize TL inhibition. Currently he is on Losartan 25 mg. BP well controlled. Discussed importance of tight control blood sugar to slow the progression of kidney disease. All his questions were answered Orders: Orders Creatinine Urine 6 Months E11.8 - Type 2 diabetes mellitus with unspecified complications, I10 - Essential (primary) hypertension Total Protein Urine Random 6 Months E11.8 - Type 2 diabetes mellitus with unspecified complications, I10 - Essential (primary) hypertension UA and rflx microscopic 6 Months E11.8 - Type 2 diabetes mellitus with unspecified complications, I10 - Essential (primary) hypertension Basic Metabolic Panel 6 Months E11.8 - Type 2 diabetes mellitus with unspecified complications, I10 - Essential (primary) hypertension Medications: Discontinued ibuprofen Discontinued Reason: Doctor's Order 600 mg PO Q6H PRN 30 tabs 0RF fever or pain prednisone Discontinued Reason: Patient no longer taking 40 mg (2 x 20 mg) PO DAILY 5 days 10 tabs 0RF Coding Level of Care Code Est Pt Level 4 (84952) Diagnoses Proteinuria R80.9 Type 2 diabetes mellitus with unspecified complications E11.8
--- OUTSIDE RECORDS SUMMARY | 2025-01-02 11:25 | XMS_ITS | Encounter Summary ---
Author Organization [employer] [facility] Address [address] [place] [address] 7 [place] [address] Care Team Providers Care Scalp Specialist Name Role Phone Payal Walker Primary Care Provider [phone] Neptali Palomo DMD Unavailable [phone] Encounter Details Date Type Department Care Team (Latest Contact Info) Description 10/03/2018 Abstract [facility] CONVERSIONS Dental, Provider, DDS Social [...] Description 04/20/2025 2:15 PM EST Office Visit [facility] CHC ADULT DENTAL [address] [place] [address] Larry Hopper documented as of this encounter Visit Diagnoses Not on filedocumented in this encounter Care Teams Scalp Specialist Relationship Specialty Start Date End Date Payal Walker ANP [address] [place] [address] PCP - General Family Medicine 11/20/21 08/04/23 Neptali Palomo DMD [address] [place] [address] Dentist 05/18/24 documented as of this encounter
--- OUTSIDE RECORDS SUMMARY | 2025-01-02 11:25 | XMS_ITS | Encounter Summary ---
Author Organization [employer] Address 75 [facility] 7t [place] [address] Care Team Providers Care Lapel Stitcher Name Role Phone Walker Payal RUANO Primary Care Provider Neptali Palomo DMD Unavailable [phone] Reason for Visit * Reason Comments Med Refill Encounter Details Date Type Department Care Team ([facility] st Contact Info) Description 06/25/2023 Refill [facility] MEDICINE [address] [place], [place] [phone] Siena Greenwood MD [address] [place], [place] [phone] GERD without esophagitis Social History Tobacco Use [...] Description 04/20/2025 2:15 PM EST Office Visit [facility] CHC ADULT DENTAL [address] [place] [address] Larry Hopper documented as of this encounter Visit Diagnoses Diagnosis GERD without esophagitis Esophageal reflux documented in this encounter Additional Health Concerns Assessment Noted Time PHQ-9 Depression Total Score: 0 08/05/19 2:13 PM EDT documented as of this encounter Care Teams Lapel Stitcher Relationship Specialty Start Date End Date Payal Walker ANP [address] [place] [address] PCP - General Family Medicine 11/20/21 08/04/23 Neptali Palomo DMD [address] [place] [address] Dentist 05/18/24 documented as of this encounter
--- OUTSIDE RECORDS SUMMARY | 2025-01-02 11:25 | XMS_ITS | Encounter Summary ---
Author Organization [employer] Address 75 [facility] 7t [place] [address] Care Team Providers Care Security Operations Engineer Name Role Phone Neptali Palomo DMD Unavailable [phone] Reason for Visit * Reason Comments Med Refill Encounter Details Date Type Department Care Team (Late st Contact Info) Description 11/01/2023 Refill [facility] MEDICINE [address] [place], [place] [phone] Payal Walker, ANP [address] [place], [place] [phone] Primary hypertension Social History Tobacco Use Types [...] Description 04/20/2025 2:15 PM EST Office Visit [facility] ADULT DENTAL [address] [place] [address] Larry Hopper documented as of this encounter Visit Diagnoses Diagnosis Primary hypertension Unspecified essential hypertension documented in this encounter Additional Health Concerns Assessment Noted Time PHQ-9 Depression Total Score: 0 08/05/19 2:13 PM EDT documented as of this encounter Care Teams Security Operations Engineer Relationship Specialty Start Date End Date Neptali Palomo DMD [address] [place] [address] Dentist 05/18/24 documented as of this encounter
--- OUTSIDE RECORDS SUMMARY | 2025-01-02 11:25 | XMS_ITS | Encounter Summary ---
Author Organization [employer] Address [address] [facility] 7t [place] [address] Care Team Providers Care Rn Neonatal Name Role Phone Neptali Palomo DMD Unavailable [phone] Reason for Visit * Reason Comments Med Refill Encounter Details Date Type Department Care Team (Late st Contact Info) Description 04/14/2024 Refill [facility] MEDICINE [address] [place], [place] [phone] Payal Walker, ANP 230 [place], [place] [phone] Type 2 diabetes mellitus with hyperlipidemia ([facility]/HCC) ([facility]) Social History Tobacco Use Types [...] Description 04/20/2025 2:15 PM EST Office Visit [facility]C ADULT DENTAL [address] [place] [address] Larry Hopper documented as of this encounter Visit Diagnoses Diagnosis Type 2 diabetes mellitus with hyperlipidemia (HCC) documented in this encounter Additional Health Concerns Assessment Noted Time PHQ-9 Depression Total Score: 0 08/05/19 2:13 PM EDT documented as of this encounter Care Teams Rn Neonatal Relationship Specialty Start Date End Date Neptali Palomo DMD 505 [place] [address] Dentist 05/18/24 documented as of this encounter
--- OUTSIDE RECORDS SUMMARY | 2025-01-02 11:25 | XMS_ITS | Encounter Summary ---
Author Organization [employer] Address 75 [facility] 7t [place] [address] Care Team Providers Care Pyrotechnics Press Tender Name Role Phone Neptali Palomo DMD Unavailable [phone] Reason for Visit * Reason Comments Med Refill Encounter Details Date Type Department Care Team (Late st Contact Info) Description 10/22/[address] [facility] MEDICINE 230 [place], [place] [phone] Payal Walker, ANP 230 [place], [place] [phone] Type 2 diabetes mellitus with hyperlipidemia ([facility]/HCC) ([facility]) Social History Tobacco Use Types [...] Description 04/20/2025 2:15 PM EST Office Visit [facility] CHC ADULT DENTAL [address] [place] [address] Larry Hopper documented as of this encounter Visit Diagnoses Diagnosis Type 2 diabetes mellitus with hyperlipidemia (HCC) documented in this encounter Additional Health Concerns Assessment Noted Time PHQ-9 Depression Total Score: 0 08/05/19 2:13 PM EDT documented as of this encounter Care Teams Pyrotechnics Press Tender Relationship Specialty Start Date End Date Neptali Palomo DMD 505 [place] [address] Dentist 05/18/24 documented as of this encounter
--- OUTSIDE RECORDS SUMMARY | 2025-01-02 11:25 | XMS_ITS | Encounter Summary ---
Author Organization [employer] Address [address] [facility] 7t [place] [address] Care Team Providers Care Wholesale Manager Name Role Phone Neptali Palomo DMD Unavailable [phone] Reason for Visit * Reason Comments Med Refill Encounter Details Date Type Department Care Team (Late st Contact Info) Description 12/09/2023 Refill [facility] MEDICINE 230 [place], [place] [phone] Payal Walker, ANP 230 [place], [place] [phone] Type 2 diabetes mellitus with hyperlipidemia ([facility]/HCC) ([facility]); Primary hypertension Social History Tobacco [...] 2:15 PM EST Office Visit [facility] ADULT DENTAL [address] [place] [address] Larry Hopper documented as of this encounter Visit Diagnoses Diagnosis Type 2 diabetes mellitus with hyperlipidemia (HCC) Primary hypertension Unspecified essential hypertension documented in this encounter Additional Health Concerns Assessment Noted Time PHQ-9 Depression Total Score: 0 08/05/19 2:13 PM EDT documented as of this encounter Care Teams Wholesale Manager Relationship Specialty Start Date End Date Neptali Palomo DMD [address] [place] [address] Dentist 05/18/24 documented as of this encounter
--- OUTSIDE RECORDS SUMMARY | 2025-01-02 11:25 | XMS_ITS | Encounter Summary ---
Author Organization [facility] Address [address] [place] [address] 7 [place] [address] Care Team Providers Care Casino Banker Name Role Phone Payal Walker Primary Care Provider [phone] Neptali Palomo DMD Unavailable [phone] Encounter Details Date Type Department Care Team (Latest Contact Info) Description 02/12/2020 Abstract [facility] CONVERSIONS Dental, Provider, DDS Social History [...] 04/20/2025 2:15 PM EST Office Visit [facility] CHC ADULT DENTAL [address] [place] [address] Larry Hopper documented as of this encounter Visit Diagnoses Not on filedocumented in this encounter Care Teams Casino Banker Relationship Specialty Start Date End Date Payal Walker ANP 230 [place] [address] PCP - General Family Medicine 11/20/21 08/04/23 Neptali Palomo DMD 505 [place] [address] Dentist 05/18/24 documented as of this encounter
--- OUTSIDE RECORDS SUMMARY | 2025-01-02 11:25 | XMS_ITS | Encounter Summary ---
Author Organization [employer] Address 75 [facility] 7t [place] [address] Care Team Providers Care Key Carrier Name Role Phone Neptali Palomo DMD Unavailable [phone] Reason for Visit * Reason Comments Med Refill Encounter Details Date Type Department Care Team (Late st Contact Info) Description 01/28/2024 Refill [facility] MEDICINE 230 [place], [place] [phone] Payal Walker, ANP 230 [place], [place] [phone] Type 2 diabetes mellitus with hyperlipidemia ([facility]/HCC) ([facility]) Social History Tobacco Use Types [...] Description 04/20/2025 2:15 PM EST Office Visit [facility] CHC ADULT DENTAL [address] [place] [address] Larry Hopper documented as of this encounter Visit Diagnoses Diagnosis Type 2 diabetes mellitus with hyperlipidemia (HCC) documented in this encounter Additional Health Concerns Assessment Noted Time PHQ-9 Depression Total Score: 0 08/05/19 2:13 PM EDT documented as of this encounter Care Teams Key Carrier Relationship Specialty Start Date End Date Neptali Palomo DMD 505 [place] [address] Dentist 05/18/24 documented as of this encounter
--- OUTSIDE RECORDS SUMMARY | 2025-01-02 11:25 | XMS_ITS | Encounter Summary ---
Author Organization [employer] Address 75 [facility] 7t [place] [address] Care Team Providers Care Template Cutter Name Role Phone Neptali Palomo DMD Unavailable [phone] Reason for Visit * Reason Comments Med Refill Encounter Details Date Type Department Care Team (Late st Contact Info) Description 01/28/2024 Refill [facility] MEDICINE 230 [place], [place] [phone] Payal Walker, ANP 230 [place], [place] [phone] Social History Tobacco Use Types Packs/Day Years [...] [facility] AD[facility] DENTAL 505 [place] [address] Larry Hopper documented as of this encounter Visit Diagnoses Not on filedocumented in this encounter Additional Health Concerns Assessment Noted Time PHQ-9 Depression Total Score: 0 08/05/19 2:13 PM EDT documented as of this encounter Care Teams Template Cutter Relationship Specialty Start Date End Date Neptali Palomo DMD 505 [place] [address] Dentist 05/18/24 documented as of this encounter
--- OUTSIDE RECORDS SUMMARY | 2025-01-02 11:25 | XMS_ITS | Clinical Summary ---
Author Organization [employer] Address 75 [facility] 7t [place] [address] Care Team Providers Care Distribution Center Supervisor Name Role Phone Neptali Palomo DMD Unavailable [phone] Allergies Active Allergy Reactions Criticality Noted [...] diabetes mellitus without complication, unspecified whether intermediate insulin use 1 each before breakfast, before lunch, and before evening meal. 1 kit 07/11/19 23 Active Continuous Blood Gluc Comber Fixer (FreeStyle Agatha 2 [place]kirk) deviceIndications: Type 2 diabetes mellitus with hyperlipidemia [...] Abdominal bloating 02/28/2024 Epigastric pain 02/28/2024 Stroke ([facility]) 08/17/2022 Assessment & Plan (08/17/2022 6:42 PM [...] fasting and chem -referred to neurologist at [place] x stroke f up and to f CT ,MRI findings --unsure if actual aneurysm in CTA? 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 Mild nodularity increases suspicion for cirrhosis Encounters Date Type Department Care Team Description 10/18/2024 1:00 PM EDT Office Visit [facility] ADULT DENTAL [address] [facility] [place] [address] Larry Hopper Dental calculus (Primary Dx); Periodontal [...] Description 04/20/2025 2:15 PM EST Office Visit [facility] ADULT DENTAL [address] [place] [address] Larry Hopper Health Maintenance Due Date Last [...] 9:03 AM EDT) Creatinine, Urine 89.78 mg/dL [facility] Microalbumin Urine 59.0 mg/L [facility] Microalbum Creatinine Ratio Ur 65.7 ug/mg cr [facility] Comment:Albumin/Creatinine R atio Reference Ranges: Normal: < 30 ug/mg creatinine Microalbuminuria: 30 - 300 ug/mg creatinineClinical Albuminuria: > 300 ug/mg creatinine 08/19/2022 9:03 AM EDT 08/19/2022 11:06 AM EDT [facility] External Provider LAB URI NE ORDERABLES Final Result Performing Organization Address [facility] Co de Phone Number [facility] [address] [place] [address] [phone] * Hemoglobin A1c (08/19/2022 9:03 AM EDT) Hemoglobin A1c 7.3 % [facility] Comment:Hemoglobin A1C Refer ence Range Adults: 4.8 - 6.0 % Non diabetic: < 6.0 % Goal: < 7.0 %Additional Action Suggested: > 8.0 %Note: Hemoglobin A1c results are invalid for patients with abnormal amounts of HbF. Blood transfusions may impact the HbA1c concentration in the patient sample. Estimated Average Glucose 163 mg/dL [facility] Comment:eAG = Estimated ave rage glucose which is %A1C expressed asaverage glucose, using the formula of the Z3Z-LkxnjlrCffzlza Glucose study (ADAG), Diabetes Care, Vol.31,#8,Oct. 2007 08/19/2022 9:03 AM EDT 08/19/2022 11:12 AM EDT [facility] External Provider LAB BLO OD ORDERABLES Final Result Performing Organization Address [facility] Co de Phone Number [facility] [address] [place] [address] [phone] * Lipid Panel, Standard (08/19/2022 9:03 AM EDT) Triglycerides 91 mg/dL [facility] Comment:Desirable Triglyceri de: less than 150 mg/dLBorderline High Triglyceride 150-199 mg/dLHigh Triglyceride: 200-499 mg/dLVery High Triglyceride: greater than or equal to 5OO mg/dL Cholesterol 186 mg/dL [facility] Comment:Desirable Cholestero l: less than 200 mg/dLBorderline High Cholesterol: 200-239 mg/dLHigh Cholesterol: greater than 239 mg/dL LDL Cholesterol Calculated 129 mg/dl [facility] Comment:Desirable LDL: less than 100 mg/dLNear Optimal/Above Optimal LDL: 110- 129 mg/dLBorderline High LDL: 130-159 mg/dLHigh LDL: 160-189 mg/dLVery High LDL: greater than or equal to 190 mg/dL HDL Cholesterol 39 mg/dL [facility] Comment:Desirable HDL: great er than 40 mg/dL Note: This HDL assay may give artificially low results in patients with liver disease. 08/19/2022 9:03 AM EDT 08/19/2022 11:12 AM EDT [facility] External Provider LAB BLO OD ORDERABLES Final Result Performing Organization Address [facility]/ZIP Co de Phone Number [facility] [address] [place] [address] [phone] * HEPATITIS C AB W/REFL TO HCV RNA, QN, PCR (07/16/2020 9:56 AM EDT) HEPATITIS C ANTIBODY NON-REACT DEN NON-REACT DEN [facility] INDEX 0.02 <1.00 [facility] Comment: HCV antibody was non-reactive. There is no laboratory evidence of HCV infection. In most cases, no further action is required. However, if recent HCV exposure is suspected, a test for HCV RNA (test code 74550) is suggested. For additional information please refer to http://education.Infinit.Qubit/faq/OJX62n7 (This link is being provided for informational/ educational purposes only.) 07/16/2020 9:56 AM EDT Davida Webb [employer] HISTORICAL/NON ORDERABLE LABS Final Result [facility] [address] [place] [address], * Hm Colonoscopy (05/01/2016) Colonoscopy Normal Normal Narrative Mary Kate Emmanuel - 05/01/2016 Repeat in 10 years Historical Provider HEALTH MAINTENANCE Final Result from Last 3 Months or Most Recently Relevant to Health Maintenance Insurance [facility] STANDARD MEDICARE DENTAL-[facility] MEDICAID STAND ADULT [place] [id number] [place] [address] Care Teams Distribution Center Supervisor Relationship Specialty Start Date End Date Neptali Palomo DMD [address] [place] [address] [place] GOMEZ [address] Dentist 05/18/24
--- OUTSIDE RECORDS SUMMARY | 2025-01-02 11:25 | XMS_ITS | Encounter Summary ---
Author Organization [employer] Address [address] [facility] 7t [place] [address] Care Team Providers Care Financial Reporting Analyst Name Role Phone Walker Payal RUANO Primary Care Provider [phone] Neptali Palomo DMD Unavailable [phone] Encounter Details Date Type Department Care Team (Late st Contact Info) Description 02/16/2023 Abstract [facility] MEDICINE 230 [place], [place] [phone] Mary Kate Emmanuel Social History Tobacco Use [...] Description 04/20/2025 2:15 PM EST Office Visit [facility] ADULT DENTAL [address] [place] [address] Larry Hopper documented as of this encounter [...] documented as of this encounter Care Teams Financial Reporting Analyst Relationship Specialty Start Date End Date Payal Walker ANP [address] [place] [address] PCP - General Family Medicine 11/20/21 08/04/23 Neptali Palomo DMD [address] [place] [address] Dentist 05/18/24 documented as of this encounter
--- OUTSIDE RECORDS SUMMARY | 2025-01-02 11:25 | XMS_ITS | Encounter Summary ---
Author Organization [employer] Address 75 [facility] 7t [place] [address] Care Team Providers Care Electronic Prepress Operator Name Role Phone Aaron Payal RUANO Primary Care Provider [phone] Neptali Palomo DMD Unavailable [phone] Reason for Visit * Reason Comments Med Refill Encounter Details Date Type Department Care Team (Late st Contact Info) Description 10/20/2022 Refill [facility] MEDICINE 230 [place], [place] [phone] [facility] 230 [place], [place] [phone] Social History Tobacco Use Types Packs/Day Years [...] Description 04/20/2025 2:15 PM EST Office Visit [facility] ADULT DENTAL [address] [place] [address] Larry Hopper documented as of this encounter Visit Diagnoses Not on filedocumented in this encounter Additional Health Concerns Assessment Noted Time PHQ-9 Depression Total Score: 0 08/05/19 23 2:13 PM EDT documented as of this encounter Care Teams Electronic Prepress Operator Relationship Specialty Start Date End Date Payal Walker ANP [address] [place] [address] PCP - General Family Medicine 11/20/21 08/04/23 Neptali Palomo DMD [address] [place] [address] Dentist 05/18/24 documented as of this encounter
--- OUTSIDE RECORDS SUMMARY | 2025-01-02 11:25 | XMS_ITS | Encounter Summary ---
Author Organization [employer] Address 75 [facility] 7t [place] [address] Care Team Providers Care Research Worker Encyclopedia Name Role Phone Neptali Palomo DMD Unavailable [phone] Reason for Visit * Reason Comments Med Refill Encounter Details Date Type Department Care Team (Late st Contact Info) Description 11/04/2023 Refill [facility] MEDICINE 230 [place], [place] [phone] Payal Walker, ANP [address] [place], [place] [phone] Type 2 diabetes mellitus with hyperlipidemia ([facility]/HCC) ([facility]) Social History Tobacco Use Types Packs/Day Years [...] Description 04/20/2025 2:15 PM EST Office Visit [facility] CHC ADULT DENTAL [address] [place] [address] Larry Hopper documented as of this encounter Visit Diagnoses Diagnosis Type 2 diabetes mellitus with hyperlipidemia (HCC) documented in this encounter Additional Health Concerns Assessment Noted Time PHQ-9 Depression Total Score: 0 08/05/19 2:13 PM EDT documented as of this encounter Care Teams Research Worker Encyclopedia Relationship Specialty Start Date End Date Neptali Palomo DMD [address] [place] [address] Dentist 05/18/24 documented as of this encounter
== END 2025-01-02 10:22 | disposition home or self-care (01) ==
LOC: HO.HKA 09:53
PROVIDERS: PCP Nurse Practitioner Family; Visit Provider Internal Medicine Hypertension Specialist
DX: R80.9 Proteinuria, unspecified (principal); E11.8 Type 2 diabetes mellitus with unspecified complications
CPT/HCPCS: 99214

== ENCOUNTER → 2025-01-02 09:52 | Outpatient (BNVA) | payer OTHER, SELFPAY | PROVIDERS: PCP Nurse Practitioner Family; Visit Provider Internal Medicine Hypertension Specialist | DX: E11.21 Type 2 diabetes mellitus with diabetic nephropathy (principal); E11.69 Type 2 diabetes mellitus with other specified complication; N52.1 Erectile dysfunction due to diseases classified elsewhere; I10 Essential (primary) hypertension; R80.9 Proteinuria, unspecified; Z79.4 Long term (current) use of insulin | CPT/HCPCS: 99212 ==

== ENCOUNTER 2025-01-15 10:53 | Outpatient (AMB) | payer OTHER, SELFPAY | END 2025-01-15 10:54 | disposition home or self-care (01) | LOC: HO.HMGAL 10:53 | PROVIDERS: PCP Nurse Practitioner Family; Visit Provider Registered Nurse Emergency | DX: J30.89 Other allergic rhinitis (principal) | CPT/HCPCS: 95117; 95165 ==

== ENCOUNTER → 2025-01-22 08:44 | Outpatient (REF) | payer OTHER, SELFPAY ==
--- NOTE | 2025-01-22 08:47 | CA_ITS ---
Transthoracic Echocardiogram Patient (Last, First, Middle): Jessica Wing, Gender: Male Date of : 1960 Age: 64 Procedure Date: 01/22/2025 Procedure Type: Transthoracic Echocardiogram Location: OP Height: 172.72 cm Weight: 83.01 kg BSA: 1.97 m2 Heart Rate: bpm BP: 110 / 64 mmHg Thread Spooler: NAREN Referring MD: Patsy Elizabeth ZOO DIRECTORMariluC Symptoms: I35.0 - Nonrheumatic aortic (valve) stenosis Study Quality: Fair ECG Rhythm: Sinus Conclusions: - The left ventricular systolic function is normal. The calculated ejection fraction is 65% by biplane method. - There is a bicuspid aortic valve. There is moderate calcification of the aortic valve. There is mild aortic valve stenosis. Findings Left Ventricle Normal left ventricular cavity size. There is normal left ventricular wall thickness. The left ventricular systolic function is normal. The calculated ejection fraction is 65% by biplane method. There is no evidence of regional wall motion abnormalities. Evidence suggests grade I (mild) diastolic dysfunction. Right Ventricle Normal right ventricular cavity size and systolic function. Atria Both atria are normal in size. Aortic Valve There is a bicuspid aortic valve. There is moderate calcification of the aortic valve. There is mild aortic valve stenosis. The mean gradient is 15 mmHg. The aortic valve area is 1.70 cm2. Mitral Valve The mitral valve appears normal. There is no mitral valve regurgitation. There is no mitral valve stenosis. Pulmonic Valve The pulmonic valve is likely normal. Tricuspid Valve There is trace tricuspid valve regurgitation. There is no evidence of pulmonary hypertension. Great Vessels The asc aorta is normal in size. Venous The inferior vena cava is normal in size and collapses greater than 50% with inspiration. Pericardium/Pleural There is no evidence of pericardial effusion. Prior Study Comparison No significant change compared to prior study dated: 01/14/2023. Measurements 2D Linear Measurements IVSd: 0.95 0.6-0.9/0.6-1.0 cm LVIDd: 4.82 3.9-5.3/4.2-5.9 cm LVIDd Index: 2.45 2.4-3.2/2.2-3.1 cm/m2 LVIDs: 2.91 2.0-3.6 cm LVPWd: 0.83 0.7-1.1 cm LA Diam: 3.00 2.7-3.8/3.0-4.0 cm LAIDs Index: 1.52 1.5-2.3 cm/m2 LV Mass: 182.54 67-162/88-224 g LV Mass Index: 92.66 43-95/49-115 g/m2 LVOT Diam: 2.10 3.0+(-)1.3 cm 2D Systolic Function EF 4C: 66.30 >55% EF 2C: 64.30 >55% EF BiP: 65.10 >55% Mitral Valve MV Pk E: 0.71 MV PK A: 1.10 MV Decel Time: 207.00 E/A: 0.60 E'Lateral: 8.16 E'Medial: 4.68 E/E' Med: 15.10 E/E' Lat: 8.70 PHT: 61.00 MVA PHT: 3.61 Decel Beauregard: 3.41 Aortic Valve AoV Pk Armando: 2.47 AoV Mn Armando: 1.86 AoV VTI: 0.47 AoV Pk Grad: 24.00 Aov Mn Grad: 15.00 TEJ Cont.VTI: 1.70 LVOT LVOT Pk Armando: 1.32 LVOT Mn Armando: 0.82 LVOT VTI: 0.23 LVOT Pk Grad: 7.00 LVOT Mn Grad: 3.00 LVOT Diam: 2.10 LVOT Area: 3.46 Diastolic Function MV Pk E: 0.71 MV Pk A: 1.10 E/A: 0.60 E'Medial: 4.68 E/E' Med: 15.10 E' Laterial: 8.16 E/E' Lat: 8.70 Right Ventricle TAPSE (mm): 24.50 TVS' Armando: 12.90 Tricuspid Valve RA Press: 3.00 Great Vessels Aorta Sinus of Valsalva: 3.83 2.0-3.[address] Ridge: 2.85 1.7-3.4 cm Ao Asc: 3.40 2.1-3.4 cm Pulmonary Veins Pulm Vein S/D 1.60 Updated in Other Vendor System with Status of Final Federico Bowles MD electronically signed on 01/22/2025 10:43:53 AM with status of Final
--- OUTSIDE RECORDS SUMMARY | 2025-01-22 09:17 | XMS_ITS | Encounter Summary ---
Author Organization [employer] Address 75 [facility] 7t [place] [address] Care Team Providers Care Olericulturist Name Role Phone Neptali Palomo DMD Unavailable [phone] Reason for Visit * Reason Comments Med Refill Encounter Details Date Type Department Care Team (Late st Contact Info) Description 10/22/2023 Refill [facility] MEDICINE 230 [place], [place] [phone] Payal Walker, ANP 230 [place], [place] [phone] Type 2 diabetes mellitus with hyperlipidemia ([facility]/HCC) ([facility]) Social History Tobacco Use Types Packs/Day [...] Description 04/20/2025 2:15 PM EST Office Visit [facility] CHC ADULT DENTAL [address] [place] [address] Larry Hopper documented as of this encounter Visit Diagnoses Diagnosis Type 2 diabetes mellitus with hyperlipidemia (HCC) documented in this encounter Additional Health Concerns Assessment Noted Time PHQ-9 Depression Total Score: 0 08/05/19 2:13 PM EDT documented as of this encounter Care Teams Olericulturist Relationship Specialty Start Date End Date Neptali Palomo DMD [address] [place] [address] Dentist 05/18/24 documented as of this encounter
--- OUTSIDE RECORDS SUMMARY | 2025-01-22 09:17 | XMS_ITS | Encounter Summary ---
Author Organization [employer] [facility] Address [address] [place] [address] 7 [place] [address] Care Team Providers Care Raveler Name Role Phone Payal Walker Primary Care Provider [phone] Neptali Palomo DMD Unavailable [phone] Encounter Details Date Type Department Care Team (Latest Contact Info) Description 02/12/2020 Abstract [facility] CONVERSIONS Dental, Provider, DDS Social History [...] Description 04/20/2025 2:15 PM EST Office Visit [facility] CHC ADULT DENTAL [address] [place] [address] Larry Hpoper documented as of this encounter Visit Diagnoses Not on filedocumented in this encounter Care Teams Raveler Relationship Specialty Start Date End Date Payal Walker ANP 230 [place] [address] PCP - General Family Medicine 11/20/21 08/04/23 Neptali Palomo DMD [address] [place] [address] Dentist 05/18/24 documented as of this encounter
--- OUTSIDE RECORDS SUMMARY | 2025-01-22 09:17 | XMS_ITS | Encounter Summary ---
Author Organization [employer] Address 75 [facility] 7t [place] [address] Care Team Providers Care Cold Working Supervisor Name Role Phone Neptali Palomo DMD Unavailable [phone] Reason for Visit * Reason Comments Med Refill Encounter Details Date Type Department Care Team (Late st Contact Info) Description 12/09/2023 Refill [facility] 230 [place], [place] [phone] Payal Walker, ANP 230 [place], [place] [phone] Type 2 diabetes mellitus with hyperlipidemia ([facility]/HCC) ([facility]); Primary hypertension Social History Tobacco [...] Visit [facility] ADULT DENTAL 505 [place] [address] Larry Hopper documented as of this encounter Visit Diagnoses Diagnosis Type 2 diabetes mellitus with hyperlipidemia (HCC) Primary hypertension Unspecified essential hypertension documented in this encounter Additional Health Concerns Assessment Noted Time PHQ-9 Depression Total Score: 0 08/05/19 2:13 PM EDT documented as of this encounter Care Teams Cold Working Supervisor Relationship Specialty Start Date End Date Neptali Palomo DMD [address] [place] [address] Dentist 05/18/24 documented as of this encounter
--- OUTSIDE RECORDS SUMMARY | 2025-01-22 09:17 | XMS_ITS | Encounter Summary ---
Author Organization [employer] Address 75 [facility] 7t [place] [address] Care Team Providers Care Surgery Aid Name Role Phone Walker Payal RUANO Primary Care Provider [phone] Neptali Palomo DMD Unavailable [phone] Reason for Visit * Reason Comments Med Refill Encounter Details Date Type Department Care Team ([facility] st Contact Info) Description 06/25/2023 Refill [facility] 230 [place], [place] [phone] Siena Greenwood MD 230 [place], [place] [phone] GERD without esophagitis Social History Tobacco Use [...] Description 04/20/2025 2:15 PM EST Office Visit [facility] ADULT D[facility]AL 505 [place] [address] Larry Hopper documented as of this encounter Visit Diagnoses Diagnosis GERD without esophagitis Esophageal reflux documented in this encounter Additional Health Concerns Assessment Noted Time PHQ-9 Depression Total Score: 0 08/05/19 2:13 PM EDT documented as of this encounter Care Teams Surgery Aid Relationship Specialty Start Date End Date Payal Walker ANP 230 [place] [address] PCP - General Family Medicine 11/20/21 08/04/23 Neptali Palomo DMD 505 [place] [address] Dentist 05/18/24 documented as of this encounter
--- OUTSIDE RECORDS SUMMARY | 2025-01-22 09:17 | XMS_ITS | Encounter Summary ---
Author Organization [facility] Address [address] [place] [address] 7 [place] [address] Care Team Providers Care Auto Phone Installer Name Role Phone Payal Walker Primary Care Provider [phone] Neptali Palomo DMD Unavailable [phone] Encounter Details Date Type Department Care Team [...] Visit [facility] ADULT DENTAL [address] [place] [address] Larry Hopper documented as of this encounter Visit Diagnoses Not on filedocumented in this encounter Care Teams Auto Phone Installer Relationship Specialty Start Date End Date Payal Walker ANP 230 [place] [address] PCP - General Family Medicine 11/20/21 08/04/23 Neptali Palomo DMD 505 [place] [address] Dentist 05/18/24 documented as of this encounter
--- OUTSIDE RECORDS SUMMARY | 2025-01-22 09:17 | XMS_ITS | Encounter Summary ---
Author Organization [employer] Address 75 [facility] 7t [place] [address] Care Team Providers Care Well Tester Name Role Phone Aaron Payal RUANO Primary Care Provider [phone] Neptali Palomo DMD Unavailable [phone] Reason for Visit * Reason Comments Med Refill Encounter Details Date Type Department Care Team (Late st Contact Info) Description 10/20/[address] [facility] 230 [place], [place] [phone] [facility] 230 [place], [place] [phone] Social History Tobacco Use Types Packs/Day Years [...] Description 04/20/2025 2:15 PM EST Office Visit [facility] ADULT DENTAL [address] [place] [address] Larry Hopper documented as of this encounter Visit Diagnoses Not on filedocumented in this encounter Additional Health Concerns Assessment Noted Time PHQ-9 Depression Total Score: 0 08/05/19 23 2:13 PM EDT documented as of this encounter Care Teams Well Tester Relationship Specialty Start Date End Date Payal Walker ANP [address] [place] [address] PCP - General Family Medicine 11/20/21 08/04/23 Neptali Palomo DMD [address] [place] [address] Dentist 05/18/24 documented as of this encounter
--- OUTSIDE RECORDS SUMMARY | 2025-01-22 09:17 | XMS_ITS | Encounter Summary ---
Author Organization [employer] Address 75 [facility] 7t [place] [address] Care Team Providers Care Underwriting Internship Name Role Phone Neptali Palomo DMD Unavailable [phone] Reason for Visit * Reason Comments Med Refill Encounter Details Date Type Department Care Team (Late st Contact Info) Description 11/04/2023 Refill [facility] 230 [place], [place] [phone] Payal Walker, ANP 230 [place], [place] [phone] Type 2 diabetes mellitus with hyperlipidemia ([facility]/HCC) ([facility]) Social History Tobacco [...] Description 04/20/2025 2:15 PM EST Office Visit [facility] CHC ADULT DENTAL [address] [place] [address] Larry Hopper documented as of this encounter Visit Diagnoses Diagnosis Type 2 diabetes mellitus with hyperlipidemia (HCC) documented in this encounter Additional Health Concerns Assessment Noted Time PHQ-9 Depression Total Score: 0 08/05/19 2:13 PM EDT documented as of this encounter Care Teams Underwriting Internship Relationship Specialty Start Date End Date Neptali Palomo DMD 505 [place] [address] Dentist 05/18/24 documented as of this encounter
--- OUTSIDE RECORDS SUMMARY | 2025-01-22 09:17 | XMS_ITS | Encounter Summary ---
Author Organization [employer] Address 75 [facility] 7t [place] [address] Care Team Providers Care Tobacco Prizer Name Role Phone Neptali Palomo DMD Unavailable [phone] Reason for Visit * Reason Comments Med Refill Encounter Details Date Type Department Care Team (Late st Contact Info) Description 11/01/2023 Refill [facility] 230 [place], [place] [phone] Payal Walker, ANP 230 [place], [place] [phone] Primary hypertension Social History Tobacco Use Types [...] Description 04/20/2025 2:15 PM EST Office Visit [facility] ADULT DENTAL 505 [place] [address] Larry Hopper documented as of this encounter Visit Diagnoses Diagnosis Primary hypertension Unspecified essential hypertension documented in this encounter Additional Health Concerns Assessment Noted Time PHQ-9 Depression Total Score: 0 08/05/19 2:13 PM EDT documented as of this encounter Care Teams Tobacco Prizer Relationship Specialty Start Date End Date Neptali Palomo DMD 505 [place] [address] Dentist 05/18/24 documented as of this encounter
--- OUTSIDE RECORDS SUMMARY | 2025-01-22 09:17 | XMS_ITS | Encounter Summary ---
Author Organization [employer] Address 75 [facility] 7t [place] [address] Care Team Providers Care Soyfreeze Operator Name Role Phone Neptali Palomo DMD Unavailable [phone] Reason for Visit * Reason Comments Med Refill Encounter Details Date Type Department Care Team (Late st Contact Info) Description 01/28/2024 Refill [facility] 230 [place], [place] [phone] Payal Walker, ANP 230 [place], [place] [phone] Type 2 diabetes mellitus with hyperlipidemia ([facility]/HCC) ([facility]) Social History Tobacco Use Types Packs/Day Years [...] 2:15 PM EST Office Visit [facility] CHC ADULT DENTAL [address] [place] [address] Larry Hopper documented as of this encounter Visit Diagnoses Diagnosis Type 2 diabetes mellitus with hyperlipidemia (HCC) documented in this encounter Additional Health Concerns Assessment Noted Time PHQ-9 Depression Total Score: 0 08/05/19 2:13 PM EDT documented as of this encounter Care Teams Soyfreeze Operator Relationship Specialty Start Date End Date Neptali Palomo DMD 505 [place] [address] Dentist 05/18/24 documented as of this encounter
--- OUTSIDE RECORDS SUMMARY | 2025-01-22 09:17 | XMS_ITS | Encounter Summary ---
Author Organization [employer] Address 75 [facility] 7t [place] [address] Care Team Providers Care Radar Operator Name Role Phone Neptali Palomo DMD Unavailable [phone] Reason for Visit * Reason Comments Med Refill Encounter Details Date Type Department Care Team (Late st Contact Info) Description 04/14/2024 Refill [facility] 230 [place], [place] [phone] Payal Walker, ANP 230 [place], [place] [phone] Type 2 diabetes mellitus with hyperlipidemia ([facility]/HCC) ([facility]) Social History Tobacco Use Types [...] Description 04/20/2025 2:15 PM EST Office Visit [facility] CH[facility] ADULT DENTAL [address] [place] [address] Larry Hopper documented as of this encounter Visit Diagnoses Diagnosis Type 2 diabetes mellitus with hyperlipidemia (HCC) documented in this encounter Additional Health Concerns Assessment Noted Time PHQ-9 Depression Total Score: 0 08/05/19 2:13 PM EDT documented as of this encounter Care Teams Radar Operator Relationship Specialty Start Date End Date Neptali Palomo DMD 505 [place] [address] Dentist 05/18/24 documented as of this encounter
--- OUTSIDE RECORDS SUMMARY | 2025-01-22 09:17 | XMS_ITS | Encounter Summary ---
Author Organization [employer] Address 75 [facility] 7t [place] [address] Care Team Providers Care Bottled Beverage Inspector Name Role Phone Neptali Palomo DMD Unavailable [phone] Reason for Visit * Reason Comments Med Refill Encounter Details Date Type Department Care Team (Late st Contact Info) Description 01/28/2024 Refill [facility] 230 [place], [place] [phone] Payal Walker, ANP 230 [place], [place] [phone] Social History Tobacco Use Types Packs/Day Years [...] 2:15 PM EST Office Visit [facility] ADULT DENTAL 505 [place] [address] Larry Hopper documented as of this encounter Visit Diagnoses Not on filedocumented in this encounter Additional Health Concerns Assessment Noted Time PHQ-9 Depression Total Score: 0 08/05/19 2:13 PM EDT documented as of this encounter Care Teams Bottled Beverage Inspector Relationship Specialty Start Date End Date Neptali Palomo DMD 505 [place] [address] Dentist 05/18/24 documented as of this encounter
--- OUTSIDE RECORDS SUMMARY | 2025-01-22 09:17 | XMS_ITS | Clinical Summary ---
Author Organization [employer] Address 75 [facility] 7t [place] [address] Care Team Providers Care Sleeve Turner Name Role Phone Neptali Palomo DMD Unavailable [phone] Allergies Active Allergy Reactions Criticality Noted [...] without complication, unspecified whether fci insulin use 1 each before breakfast, before lunch, and before evening meal. 1 kit 07/11/19 23 Active Continuous Blood Gluc Plate Shop Helper (FreeStyle Agatha 2 [place]) deviceIndications: Type 2 diabetes mellitus with hyperlipidemia [...] Abdominal bloating 02/28/2024 Epigastric pain 02/28/2024 Stroke ([facility]) 08/17/2022 Assessment & Plan (08/17/2022 6:42 PM [...] fasting and chem -referred to neurologist at [place] x stroke f up and to f CT ,MRI findings --unsure if actual aneurysm in CTA? 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 Mild nodularity increases suspicion for cirrhosis Immunizations Immunization Administration Dates Next Due Hep [...] your housing situation today? I have ingrid seda 01/15/[address] you li [...] [facility] ADULT DENT[facility] [address] [place] [address] Larry Hopper Health Maintenance Due Date Last [...] 06/28, 07/16/2020, Additional history exists COVID-19 Vaccine (2024- season) 2024 04/16/2022, 02/28/2021, 07/05/2020, Additional history exists Influenza Vaccine (#1) 2024 , 04/14/2022, 01/02/2021, Additional history exists Dental Oral Exam 04/21/2025 10/18/2024, 06/2023, 02/01/2020, Additional history exists Dental Prophylaxis 04/21/2025 10/18/2024, 0 12/01/2023, 10/23/2020, Additional history exists Tobacco Screening 10/18/2025 10/18/2024 Dental X-Ray: Bitewings 10/19/2025 10/19/19, 12/01/2023, 02/01/2023, Additional history exists Colonoscopy 05/01/2026 [...] Procedure Name Priority Date/Time Associated Diagnosis Comments PROPHYLAXIS - ADULT Routine 10/18/2024 1 :00 PM EDT Periodontal disease BITEWINGS - 4 RADIOGRAPHIC IMAGES Routine 10/18/2024 1:00 PM EDT Periodontal disease PERIODIC ORAL EVALUATION - ESTABLISHED PATIENT Routine 10/18/2024 1:00 PM EDT Periodontal disease INTRAORAL - COMPLETE [...] 9:03 AM EDT) Creatinine, Urine 89.78 mg/dL [facility] Microalbumin Urine 59.0 mg/L [facility] Microalbum Creatinine Ratio Ur 65.7 ug/mg cr [facility] Comment:Albumin/Creatinine R atio Reference Ranges: Normal: < 30 ug/mg creatinine Microalbuminuria: 30 - 300 ug/mg creatinineClinical Albuminuria: > 300 ug/mg creatinine 08/19/2022 9:03 AM EDT 08/19/2022 11:06 AM EDT [facility] External Provider LAB URI NE ORDERABLES Final Result [facility] [address] [place] [phone] * Hemoglobin A1c (08/19/2022 9:03 AM [...] patient sample. Estimated Average Glucose 163 mg/dL [facility] Comment:eAG = Estimated ave rage glucose which is %A1C expressed asaverage glucose, using the formula of the H8W-VrkyjigEikqhze Glucose study (ADAG), Diabetes Care, Vol.31,#8,Oct. 2007 08/19/2022 9:03 AM EDT 08/19/2022 11:12 AM EDT [facility] External Provider LAB BLO OD ORDERABLES Final Result [facility] [address] [place] [address] [phone] * Lipid Panel, Standard (08/19/2022 9:03 AM EDT) Triglycerides 91 mg/dL [facility] Comment:Desirable Triglyceri de: less than 150 mg/dLBorderline High Triglyceride 150-199 mg/dLHigh Triglyceride: 200-499 mg/dLVery High Triglyceride: greater than or equal to 5OO mg/dL Cholesterol 186 mg/dL [facility] Comment:Desirable Cholestero l: less than 200 mg/dLBorderline High Cholesterol: 200-239 mg/dLHigh Cholesterol: greater than 239 mg/dL LDL Cholesterol Calculated 129 mg/dl [facility] Comment:Desirable LDL: less than 100 mg/dLNear Optimal/Above Optimal LDL: 110- 129 mg/dLBorderline High LDL: 130-159 mg/dLHigh LDL: 160-189 mg/dLVery High LDL: greater than or equal to 190 mg/dL HDL Cholesterol 39 mg/dL [facility] Comment:Desirable HDL: great er than 40 mg/dL Note: This HDL assay may give artificially low results in patients with liver disease. 08/19/2022 9:03 AM EDT 08/19/2022 11:12 AM EDT [facility] External Provider LAB BLO OD ORDERABLES Final Result [facility] [address] [place] [address] [phone] * HEPATITIS C AB W/REFL TO HCV RNA, QN, PCR (07/16/2020 9:56 AM EDT) HEPATITIS C ANTIBODY NON-REACT DEN NON-REACT DEN [facility] INDEX 0.02 <1.00 [facility] Comment: HCV antibody was non-reactive. There is no laboratory evidence of HCV infection. In most cases, no further action is required. However, if recent HCV exposure is suspected, a test for HCV RNA (test code 02034) is suggested. For additional information please refer to http://education.[employer]/faq/OWS20y9 (This link is being provided for informational/ educational purposes only.) 07/16/2020 9:56 AM EDT Davida Webb DAIRY LAB TECHNICIAN HISTORICAL/NON ORDERABLE LABS Final Result Performing Organization Address City/[facility]/ZIP Co de Phone Number [facility] [address] [place] [address], * Hm Colonoscopy (05/01/2016) Colonoscopy Normal Normal Narrative Mary Kate Emmanuel - 05/01/2016 Repeat in 10 years Historical Provider MD HEALTH MAINTENANCE Final Result from Last 3 Months or Most Recently Relevant to Health Maintenance Insurance [facility] STANDARD MEDICARE DENTAL-[facility] MEDICAID STAND ADULT [place] Care Teams Sleeve Turner Relationship Specialty Start Date End Date Neptali Palomo DMD [address] [place] [address] Dentist 05/18/24
--- OUTSIDE RECORDS SUMMARY | 2025-01-22 09:17 | XMS_ITS | Encounter Summary ---
Author Organization [employer] Address [address] [facility] 7t [place] [address] Care Team Providers Care Testing Lead Name Role Phone Walker Payal RUANO Primary Care Provider Neptali Palomo DMD Unavailable [phone] Encounter Details Date Type Department Care Team (Late st Contact Info) Description 02/16/2023 Abstract [facility] [address] [place], [place] [phone] Mary Kate Emmanuel Social History Tobacco Use [...] Description 04/20/2025 2:15 PM EST Office Visit [facility] ADULT DENTAL [address] [place] [address] Larry Hopper documented as of this encounter [...] documented as of this encounter Care Teams Testing Lead Relationship Specialty Start Date End Date Payal Walker ANP 230 [place] [address] PCP - General Family Medicine 11/20/21 08/04/23 Neptali Palomo DMD 505 [place] [address] Dentist 05/18/24 documented as of this encounter
== END ==
LOC: HO.CARD 08:44
PROVIDERS: PCP Nurse Practitioner Family; Visit Provider Nurse Practitioner Family
DX: I35.0 Nonrheumatic aortic (valve) stenosis (principal)
CPT/HCPCS: 93306

== ENCOUNTER → 2025-01-22 08:47 | Outpatient (BNV) | payer OTHER, SELFPAY | PROVIDERS: PCP Nurse Practitioner Family; Visit Provider Internal Medicine | DX: I35.0 Nonrheumatic aortic (valve) stenosis (principal); I35.8 Other nonrheumatic aortic valve disorders | CPT/HCPCS: 93306 ==

== ENCOUNTER 2025-01-31 11:07 | Outpatient (AMB) | payer OTHER, SELFPAY ==
--- NOTE | 2025-01-31 14:00 | A.OFFVIS_ITS ---
Intake Intake Visit Reasons: Pump Training Healthcare Project Manager Required: Yes Healthcare Project Manager Language: Paper Sales Representative Name: Romy [facility] Accompanied by: Self / Same As Patient Allergies codeine (CODEINE) Allergy (Intermediate, Verified 01/31/25 11:23) TACHYCARDIA HPI Comprehensive Diabetes Asmnt Most Recent Diabetes Results: Creatinine, (0.5-1.4) 0.86 mg/dL 12/29/24 BUN, (9-16) 21 mg/dL H 12/29/24 Sodium, (135-145) 141 mmol/L 12/29/24 Potassium, (3.3-5.1) 3.7 mmol/L 12/29/24 Chloride, (96-108) 104 mmol/L 12/29/24 Carbon Dioxide, (22-29) 29 mmol/L 12/29/24 Calcium, (8.4-10.2) 9.2 mg/dL 12/29/24 [facility] Medical History Palpitations Pancreatitis Arthritis GERD (gastroesophageal reflux disease) CVA (cerebral vascular accident) Microalbuminuric diabetic nephropathy Type II diabetes with alf use of insulin Erectile dysfunction Vitamin D deficiency Multinodular thyroid Other and unspecified hyperlipidemia Essential hypertension Aortic valve calcification Surgical History History of esophagogastroduodenoscopy (EGD) H/O colonoscopy Family History Father Stroke Brother Stroke Mother Diabetes Social History Household Members: Spouse Housing: House Alcohol intake: never Patient Tobacco Use Status: Former Tobacco user e-Cigarette/Vaping Use: Never Used service: No Current occupational status: disabled Cognitive needs: No Hearing needs: No Vision needs: Yes Assessment & Plan Assessment & Plan (1) Type 2 diabetes mellitus with unspecified complications: Code(s): E11.8 - Type 2 diabetes mellitus with unspecified complications Plan: Patient presents for pump training for iLet pump and CGM training today. The following topics were reviewed today: -Pump therapy basic concepts: Basal/bolus -Device settings: Bluetooth/mobile connection (if applicable), correct date and time, sound volume -CGM settings(if integrated system): CGM graft views and trend arrows, alerts and alarms, Start new sensor Patient instructed to only announce meals that have carbohydrates For the 1st 7 days: Eat meals that have usual amount of carbs for you in announce them as usual Wait at least 4 hours between eating meals with carbs and announcing again If you are eating between meals, low carb snacks are the best option. Announce meal right away when you start eating If you forget and is more than 30 minutes since started eating do not announce Avoid over treating lows, this can cause hyperglycemia, which will initiate pump to deliver correction bolus Always have extra supplies: CGM sensor Supply to refill your insulin cartridge and replace your infusion set Blood glucose and ketone testing supplies Extra insulin Treatment for low blood glucose Emergency contact information Ketone action plan Keep kip open on your phone, keep your ilet paired with the kip Always sink her data before appointments with your healthcare provider BG run mode: You will go into BG mode if not receiving CGM glucose readings You will be required to enter BG into pump every 4 hours after 72 hours insulin delivery will stop In the 1st week of pump therapy you will need to enter BG every hour after 48 hours without CGM in the 1st week insulin delivery will stop Insulin delivery settings Date, time and weight Instructed patient to only use room temperature insulin, how to load cartridge or fill pod, with insulin. Fill tubing and cannula (if applicable) Inserting infusion set or starting pod Troubleshooting after starting new pod or inserting new insulin set: Occlusion, adhesive tape sensitivity, redness Check BG 2 hours after site change Safety information: Importance of a backup plan, for manual injections, proper prescriptions and emergency supplies ketone strips, and rules for testing for ketones Patient was able to insert insulin set today without difficulty. Patient understands the basic concepts of pump therapy, how to give insulin for meals and snacks, how to troubleshoot for hyper and hypoglycemia. [facility] instructed Patient will contact [facility] with questions or concerns, patient given IT number to support in any technical issues related to insulin pump Portions of this note were created using voice recognition software, please excuse any words or phrases that may have been misinterpreted. Coding Level of Care Code Est Pt Level 1 (56405) Diagnoses Type 2 diabetes mellitus with unspecified complications E11.8 Results AMB Hemoglobin A1c AMB Hemoglobin A1c 7.5 % Last Edit by IDANIA Mccurdy on 01/31/25 11:41
== END 2025-01-31 14:16 | disposition home or self-care (01) ==
LOC: HO.ENCR 11:07
PROVIDERS: PCP Nurse Practitioner Family; Visit Provider Registered Nurse Diabetes Educator
DX: E11.8 Type 2 diabetes mellitus with unspecified complications (principal)

== ENCOUNTER 2025-01-31 11:07 | Outpatient (AMB) | payer OTHER, SELFPAY ==
--- NOTE | 2025-01-31 11:18 | A.OFFVIS_ITS ---
Vital Signs 01/31/25 11:22 Height 5 ft 8 in Weight 183 lb 10.321 oz BMI 27.9 BP 138/84 Blood Pressure Location Lt brachial Position Sitting Pulse 87 Pulse Source Pulse Oximeter Pulse Oximetry (%) 98 Oxygen Delivery Method Room Air Intake Visit Reasons: T2DM Intake Note: Patient present today to follow up on Type 2 Diabetes Mellitus. Patient receives Freestyle Agatha 3 supplies through: [employer] Last Diabetic Eye exam: Patient reports some time last fall Last Podiatry Visit: Does not see a Press Assistant And Feeder Random Glucose: 157 mg/dl HgA1C: 7.5% 01/31/2025 Electromechanical Equipment Assembler Required: Yes Electromechanical Equipment Assembler Language: [employer] Associate Services: Electromechanical Equipment Assembler Present Electromechanical Equipment [facility] Information Interpreted: non-clinical & clinical Accompanied by: Self / Same As Patient Allergies codeine (CODEINE) Allergy (Intermediate, Verified 01/31/25 11:23) TACHYCARDIA HPI Comments Details: This is a 64-year-old male with a past medical history of pancreatitis, 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 He has met with the paraeducator to discuss going on an insulin pump. He is going on an iLet pump He has met with photography professor and feels that he would be able to carbohydrate g count with the resources she gave him. He was previously on Trulicity which was discontinued secondary to pancreatitis. Metformin caused GI side effects Patient was previously on Jardiance which worked very well, and he did not have side effects, but his insurance had stopped covering it at 1 point. Denies history of infections Freestyle agatha sensor 3 average glucose: To 13 14 day continuous glucose sensor report reviewed Glucose Management indicator 8.1 % Time CGM active 97 % TIme in ranges: 20 % very high (above 250) 37 % high (181-250) 43 % in range (70-180] 0 % low (69-55) 0 % very low (below 54) 29.1% Glucose variability (target <36%) Interpretation of CGMS declining blood sugars overnight with increase in point of care around mid afternoon No lows on report but he does not report hypoglycemia Current diabetes medications: tresiba 28 units at bedtime ademalog T.i.d. with meals 80-150 12 units >200 14 units farxiga 5mg pioglitizone 15mg low dose as patient has a history of previous CVA and this may reduce the risk. Patient is not having any juice or soda. He does not smoke. He does not drink alcohol. He has a lot of salad and some rice in his diet. Avoids pasta. Was walking in the past but stopped due to cold weather. His weight is up 15 lb since the fall. Complications: Diabetic eye exam has appt this yr . No known retinopathy. Patient has nephropathy ( microalbuminuria). 03/23/2024 eGFR>60 08/09/2023 microalbumin 54.0 he is now being followed by Nephrology at [facility] Patient has a history of CVA. [facility] Medical History Palpitations Pancreatitis Arthritis GERD (gastroesophageal reflux disease) CVA (cerebral vascular accident) Microalbuminuric diabetic nephropathy Type II diabetes with mcfp use of insulin Erectile dysfunction Vitamin D deficiency Multinodular thyroid Other and unspecified hyperlipidemia Essential hypertension Aortic valve calcification Surgical History History of esophagogastroduodenoscopy (EGD) H/O colonoscopy Family History Father Stroke Brother Stroke Mother Diabetes Social History Household Members: Spouse Housing: House Alcohol intake: never Patient Tobacco Use Status: Former Tobacco user e-Cigarette/Vaping Use: Never Used service: No Current occupational status: disabled Cognitive needs: No Hearing needs: No Vision needs: Yes Physical Exam Vital Signs: Last Vital Signs Pulse 87 01/31/25 11:22 BP 138/84 01/31/25 11:22 Pulse Ox 98 01/31/25 11:22 Oxygen Delivery Method Room Air 01/31/25 11:22 BMI result Body Mass Index 27.9 Absence of Cushingoid features. Absence of acromegalic features. Neck exam reveals nl size thyroid about 15 gms. No thyroid nodules palpable. No carotid bruits present. Lungs CTA. Heart S1 S2, Reg R/R. No M/R/ G. Skin exam reveals absence of vitiligo or acanthosis nigricans. Abdominal exam reveals Soft NT/ND with NA BS. No organomegaly present. Neck Other: . Extrem Other: Visual exam of foot performed. No ulcerations or open lesions. No onchomycosis, no callouses.Pulses 2 + distally Sensation intact to monofilament exam. Vibratory sensation sensed is intact with 128 Hz tuning fork Results AMB Hemoglobin A1c AMB Hemoglobin A1c 7.5 % Last Edit by IDANIA Mccurdy on 01/31/25 11:41 Results Reviewed Results Reviewed: Laboratory Last Values Glucose (Clinic) 157 mg/dL (60-115) H 01/31/25 11:31 Assessment & Plan Assessment & Plan (1) Type II diabetes with mcfp use of insulin: Code(s): E11.9 - Type 2 diabetes mellitus without complications; Z79.4 - custodial (current) use of insulin Category: Medical Qualifiers: Diabetes mellitus complication status: with kidney complications Diabetes mellitus complication detail: with nephropathy Qualified Code(s): E11.21 - Type 2 diabetes mellitus with diabetic nephropathy; Z79.4 - custodial (current) use of insulin Plan: This is a 63-year-old male with a history of type 2 diabetes the setting of pancreatitis being treated with basal-bolus insulin and Farxiga and pioglitazone with fair glycemic control with known microvascular complications of macrovascular complications namely nephropathy and CVA. The plan is to decrease Tresiba to 20 units and increase Ademalog scale at dinner 80-150 16 units and >200 20 units He will follow up with the environmental educator to initiate iLet pump . We will check lipid profile Orders: Orders AMB Hemoglobin A1c Today E11.8 - Type 2 diabetes mellitus with unspecified complications Coding Level of Care Code Est Pt Level 4 (38594) Complex EM visit Add On G2211 Diagnoses Type 2 diabetes mellitus with diabetic nephropathy, with long-term current use of insulin E11.21; Z79.4 Diabetes mellitus complication status: with kidney complications Diabetes mellitus complication detail: with nephropathy
[2025-01-31 11:22] VITALS: BP 138/84; PULSE 87; O2SAT 98; BMI 27.9
[2025-01-31 11:35] LABS: Glucose, Whole Blood 157 mg/dL (60-115)
--- OUTSIDE RECORDS SUMMARY | 2025-01-31 13:23 | XMS_ITS | Encounter Summary ---
Author Organization [employer] Address 75 [facility] 7t [place] [address] Care Team Providers Care Vineyardist Name Role Phone Neptali Palomo DMD Unavailable [phone] Reason for Visit * Reason Comments Med Refill Encounter Details Date Type Department Care Team (Late st Contact Info) Description 11/04/2023 Refill [facility] MEDICINE [address] [place], [place] [phone] Payal Walker, ANP [address] [place], [place] [phone] Type 2 diabetes mellitus with hyperlipidemia ([facility] [...] Description 04/20/2025 2:15 PM EST Office Visit [facility] CHC ADULT DENTAL [address] [place] [address] Larry Hopper documented as of this encounter Visit Diagnoses Diagnosis Type 2 diabetes mellitus with hyperlipidemia (HCC) documented in this encounter Additional Health Concerns Assessment Noted Time PHQ-9 Depression Total Score: 0 08/05/19 2:13 PM EDT documented as of this encounter Care Teams Vineyardist Relationship Specialty Start Date End Date Neptali Palomo DMD [address] [place] [address] Dentist 05/18/24 documented as of this encounter
--- OUTSIDE RECORDS SUMMARY | 2025-01-31 13:23 | XMS_ITS | Encounter Summary ---
Author Organization [employer] Address 75 [facility] 7t [place] [address] Care Team Providers Care Film Printer Name Role Phone Neptali Palomo DMD Unavailable [phone] Reason for Visit * Reason Comments Med Refill Encounter Details Date Type Department Care Team (Late st Contact Info) Description 01/28/2024 Refill [facility] MEDICINE [address] [place], [place] [phone] Payal Walker, ANP [address] [place], [place] [phone] Type 2 diabetes mellitus with hyperlipidemia ([facility]/HCC) ([facility]) Social History Tobacco Use Types Packs/Day [...] Description 04/20/2025 2:15 PM EST Office Visit [facility] CHC ADULT DENTAL [address] [place] [address] Larry Hopper documented as of this encounter Visit Diagnoses Diagnosis Type 2 diabetes mellitus with hyperlipidemia (HCC) documented in this encounter Additional Health Concerns Assessment Noted Time PHQ-9 Depression Total Score: 0 08/05/19 2:13 PM EDT documented as of this encounter Care Teams Film Printer Relationship Specialty Start Date End Date Neptali Palomo DMD [address] [place] [address] Dentist 05/18/24 documented as of this encounter
--- OUTSIDE RECORDS SUMMARY | 2025-01-31 13:23 | XMS_ITS | Encounter Summary ---
Author Organization [employer] Address [address] [facility] 7t [place] [address] Care Team Providers Care Tractor Mechanic Apprentice Name Role Phone Neptali Palomo DMD Unavailable [phone] Reason for Visit * Reason Comments Med Refill Encounter Details Date Type Department Care Team (Late st Contact Info) Description 11/01/2023 Refill [facility] MEDICINE 230 [place], [place] [phone] Payal Walker, ANP 230 [place], [place] [phone] Primary hypertension Social History Tobacco Use Types [...] [facility] ADULT DENTAL [address] [place] [address] Larry Hopper documented as of this encounter Visit Diagnoses Diagnosis Primary hypertension Unspecified essential hypertension documented in this encounter Additional Health Concerns Assessment Noted Time PHQ-9 Depression Total Score: 0 08/05/19 2:13 PM EDT documented as of this encounter Care Teams Tractor Mechanic Apprentice Relationship Specialty Start Date End Date Neptali Palomo DMD 505 [place] [address] Dentist 05/18/24 documented as of this encounter
--- OUTSIDE RECORDS SUMMARY | 2025-01-31 13:23 | XMS_ITS | Encounter Summary ---
Author Organization [employer] Address [address] [facility] 7t [place] [address] Care Team Providers Care Loan Expeditor Name Role Phone Neptali Palomo DMD Unavailable Reason for Visit * Reason Comments Med Refill Encounter Details Date Type Department Care Team (Late st Contact Info) Description 04/14/2024 Refill [facility] MEDICINE 230 [place], [place] [phone] Payal Walker, ANP 230 [place], [place] [phone] Type 2 diabetes mellitus with hyperlipidemia ([facility]/HCC) ([facility]) Social History Tobacco Use Types [...] [facility] ADULT [facility] [address] [place] [address] Larry Hopper documented as of this encounter Visit Diagnoses Diagnosis Type 2 diabetes mellitus with hyperlipidemia (HCC) documented in this encounter Additional Health Concerns Assessment Noted Time PHQ-9 Depression Total Score: 0 08/05/19 2:13 PM EDT documented as of this encounter Care Teams Loan Expeditor Relationship Specialty Start Date End Date Neptali Palomo DMD 505 [place] [address] Dentist 05/18/24 documented as of this encounter
--- OUTSIDE RECORDS SUMMARY | 2025-01-31 13:23 | XMS_ITS | Encounter Summary ---
Author Organization [employer] Address [address] [facility] 7t [place] [address] Care Team Providers Care Restaurant Line Cook Name Role Phone Neptali Palomo DMD Unavailable [phone] Reason for Visit * Reason Comments Med Refill Encounter Details Date Type Department Care Team (Late st Contact Info) Description 01/28/2024 Refill [facility] MEDICINE 230 [place], [place] [phone] Payal Walker, ANP 230 [place], [place] [phone] Social History Tobacco Use Types Packs/Day Years [...] [facility] [address] [place] [address] Larry Hopper documented as of this encounter Visit Diagnoses Not on filedocumented in this encounter Additional Health Concerns Assessment Noted Time PHQ-9 Depression Total Score: 0 08/05/19 2:13 PM EDT documented as of this encounter Care Teams Restaurant Line Cook Relationship Specialty Start Date End Date Neptali Palomo DMD 505 [place] [address] Dentist 05/18/24 documented as of this encounter
--- OUTSIDE RECORDS SUMMARY | 2025-01-31 13:23 | XMS_ITS | Encounter Summary ---
Author Organization [employer] [facility] Address [address] [place] [address] 7 [place] [address] Care Team Providers Care Senior Attorney Name Role Phone Payal Walker Primary Care Provider [phone] Neptali Palomo DMD Unavailable [phone] Encounter Details Date Type Department Care Team (Latest Contact Info) Description 10/03/2018 Abstract [facility] CONVERSIONS Dental, [...] [facility]ULT [facility] [address] [place] [address] Larry Hopper documented as of this encounter Visit Diagnoses Not on filedocumented in this encounter Care Teams Senior Attorney Relationship Specialty Start Date End Date Payal Walker ANP 230 [place] [address] PCP - General Family Medicine 11/20/21 08/04/23 Neptali Palomo DMD 505 [place] [address] Dentist 05/18/24 documented as of this encounter
--- OUTSIDE RECORDS SUMMARY | 2025-01-31 13:23 | XMS_ITS | Encounter Summary ---
Author Organization [employer] Address [address] [facility] 7t [place] [address] Care Team Providers Care Sanitation Worker Name Role Phone Walker Payal RUANO Primary Care Provider [phone] Neptali Palomo DMD Unavailable [phone] Encounter Details Date Type Department Care Team (Late st Contact Info) Description 02/16/2023 Abstract [facility] MEDICINE 230 [place], [place] [phone] Mary Kate Emmanuel Social History Tobacco Use [...] 04/20/2025 2:15 PM EST Office Visit [facility] ADULT DENTAL [address] [place] [address] Larry Hopper documented as of this encounter [...] documented as of this encounter Care Teams Sanitation Worker Relationship Specialty Start Date End Date Payal Walker ANP 230 [place] [address] PCP - General Family Medicine 11/20/21 08/04/23 Neptali Palomo DMD 505 [place] [address] Dentist 05/18/24 documented as of this encounter
--- OUTSIDE RECORDS SUMMARY | 2025-01-31 13:23 | XMS_ITS | Encounter Summary ---
Author Organization [employer] Address 75 [facility] 7t [place] [address] Care Team Providers Care Under Sheriff Name Role Phone Neptali Palomo DMD Unavailable [phone] Reason for Visit * Reason Comments Med Refill Encounter Details Date Type Department Care Team (Late st Contact Info) Description 12/09/2023 Refill [facility] MEDICINE 230 [place], [place] [phone] Payal Walker, ANP 230 [place], [place] [phone] Type 2 diabetes mellitus with hyperlipidemia ([facility]/HCC) ([facility]); Primary hypertension Social History Tobacco Use [...] PM EST Office Visit [facility] ADULT DENTAL 505 [place] [address] Larry Hopper documented as of this encounter Visit Diagnoses Diagnosis Type 2 diabetes mellitus with hyperlipidemia (HCC) Primary hypertension Unspecified essential hypertension documented in this encounter Additional Health Concerns Assessment Noted Time PHQ-9 Depression Total Score: 0 08/05/19 2:13 PM EDT documented as of this encounter Care Teams Under Sheriff Relationship Specialty Start Date End Date Neptali Palomo DMD [address] [place] [address] Dentist 05/18/24 documented as of this encounter
--- OUTSIDE RECORDS SUMMARY | 2025-01-31 13:23 | XMS_ITS | Encounter Summary ---
Author Organization [employer] Address [address] [facility] 7t [place] [address] Care Team Providers Care Brass Molder Name Role Phone Neptali Palomo DMD Unavailable [phone] Reason for Visit * Reason Comments Med Refill Encounter Details Date Type Department Care Team (Late st Contact Info) Description 10/22/2023 Refill [facility] MEDICINE 230 [place], [place] [phone] Payal Walker, ANP 230 [place], [place] [phone] Type 2 diabetes mellitus with hyperlipidemia ([facility]/HCC) ([facility]) Social History Tobacco Use Types [...] Description 04/20/2025 2:15 PM EST Office Visit [facility] CHC ADULT DENTAL [address] [place] [address] Larry Hopper documented as of this encounter Visit Diagnoses Diagnosis Type 2 diabetes mellitus with hyperlipidemia (HCC) documented in this encounter Additional Health Concerns Assessment Noted Time PHQ-9 Depression Total Score: 0 08/05/19 2:13 PM EDT documented as of this encounter Care Teams Brass Molder Relationship Specialty Start Date End Date Neptali Palomo DMD 505 [place] [address] Dentist 05/18/24 documented as of this encounter
--- OUTSIDE RECORDS SUMMARY | 2025-01-31 13:23 | XMS_ITS | Clinical Summary ---
Author Organization [employer] Address 75 [facility] 7t [place] [address] Care Team Providers Care Vp Product Name Role Phone Neptali Palomo DMD Unavailable [phone] Allergies Active Allergy Reactions Criticality Noted [...] 2 diabetes mellitus without complication, unspecified whether care home insulin use 1 each before breakfast, before lunch, and before evening meal. 1 kit 07/11/19 23 Active Continuous Blood Gluc Horticulture Professor (FreeStyle Agatha 2 [place]) deviceIndications: Type 2 diabetes mellitus with hyperlipidemia [...] Abdominal bloating 02/28/2024 Epigastric pain 02/28/2024 Stroke ([facility]) 08/17/2022 Assessment & Plan (08/17/2022 6:42 [...] fasting and chem -referred to neurologist at [place] x stroke f up and to f CT ,MRI findings --unsure if actual aneurysm in CTA? 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 ----to continue care w neurologist -states is following w cardiology for valvular abnormality -from chart review hx of aortic valve calcification-pt states will schedule a f up visit w his cards at [facility] Pituitary microadenoma ([facility]) 08/17/2022 Assessment & Plan (08/17/2022 6:41 [...] Visit [facility] ADULT DENTAL [address] [place] [address] Larry Hopper Health Maintenance Due Date Last [...] AM EDT) Creatinine, Urine 89.78 mg/dL [facility] Microalbumin Urine 59.0 mg/L [facility] Microalbum Creatinine Ratio Ur 65.7 ug/mg cr [facility] Comment:Albumin/Creatinine R atio Reference Ranges: Normal: < 30 ug/mg creatinine Microalbuminuria: 30 - 300 ug/mg creatinineClinical Albuminuria: > 300 ug/mg creatinine 08/19/2022 9:03 AM EDT 08/19/2022 11:06 AM EDT us [facility] External Provider LAB URI NE ORDERABLES Final Result [facility] [address] [place] [phone] * Hemoglobin A1c (08/19/2022 9:03 AM EDT) Hemoglobin A1c 7.3 % [facility] Comment:Hemoglobin A1C Refer ence Range Adults: 4.8 - 6.0 % Non diabetic: < 6.0 % Goal: < 7.0 %Additional Action Suggested: > 8.0 %Note: Hemoglobin A1c results are invalid for patients with abnormal amounts of HbF. Blood transfusions may impact the HbA1c concentration in the patient sample. Estimated Average Glucose 163 mg/dL [facility] Comment:eAG = Estimated ave rage glucose which is %A1C expressed asaverage glucose, using the formula of the R7P-BuwmrtzOvoypjv Glucose study (ADAG), Diabetes Care, Vol.31,#8,Oct. 2007 08/19/2022 9:03 AM EDT 08/19/2022 11:12 AM EDT us [facility] External Provider LAB BLO OD ORDERABLES Final Result [facility] [address] [place] [address] [phone] * Lipid Panel, Standard (08/19/2022 9:03 AM EDT) Triglycerides 91 mg/dL [facility] Comment:Desirable Triglyceri de: less than 150 mg/dLBorderline High Triglyceride 150-199 mg/dLHigh Triglyceride: 200-499 mg/dLVery High Triglyceride: greater than or equal to 5OO mg/dL Cholesterol 186 mg/dL [facility] Comment:Desirable Cholestero l: less than 200 mg/dLBorderline High Cholesterol: 200-239 mg/dLHigh Cholesterol: greater than 239 mg/dL LDL Cholesterol Calculated 129 mg/dl [facility] Comment:Desirable LDL: less than 100 mg/dLNear Optimal/Above Optimal LDL: 110- 129 mg/dLBorderline High LDL: 130-159 mg/dLHigh LDL: 160-189 mg/dLVery High LDL: greater than or equal to 190 mg/dL HDL Cholesterol 39 mg/dL [facility] Comment:Desirable HDL: great er than 40 mg/dL Note: This HDL assay may give artificially low results in patients with liver disease. 08/19/2022 9:03 AM EDT 08/19/2022 11:12 AM EDT [facility] External Provider LAB BLO OD ORDERABLES Final Result [facility] [address] [place] [address] [phone] * HEPATITIS C AB W/REFL TO [...] a test for HCV RNA (test code 07894) is suggested. For additional information please refer to http://education.Q.branch/faq/GUS25b1 (This link is being provided for informational/ educational purposes only.) 07/16/2020 9:56 AM EDT [facility] [employer] RESEARCH PSYCHOLOGIST HISTORICAL/NON ORDERABLE LABS Final Result Performing Organization Address City/[facility]/ZIP Co de Phone Number [facility] [address] [place] [address], * Hm Colonoscopy (05/01/2016) Colonoscopy Normal Normal Narrative Mary Kate Emmanuel - 05/01/2016 Repeat in 10 years Historical Provider MD HEALTH MAINTENANCE Final Result from Last 3 Months or Most Recently Relevant to Health Maintenance Insurance [facility] STANDARD MEDICARE DENTAL-[facility] MEDICAID STAND ADULT Ari AL Ari AL Ari AL Care Teams Vp Product Relationship Specialty Start Date End Date Neptali Palomo DMD [address] [place] [address] Dentist 05/18/24
--- OUTSIDE RECORDS SUMMARY | 2025-01-31 13:23 | XMS_ITS | Encounter Summary ---
Author Organization [employer] Address [address] [facility] 7t [place] [address] Care Team Providers Care Curb Hop Name Role Phone Walker Payal RUANO Primary Care Provider [phone] Neptali Palomo DMD Unavailable [phone] Reason for Visit * Reason Comments Med Refill Encounter Details Date Type Department Care Team ([facility] st Contact Info) Description 06/25/2023 Refill [facility] MEDICINE 230 [place], [place] [phone] Siena Greenwood MD [address] [place], [place] [phone] GERD without esophagitis Social History Tobacco Use [...] Description 04/20/2025 2:15 PM EST Office Visit [facility] CHC ADULT DENTAL [address] [place] [address] Larry Hopper documented as of this encounter Visit Diagnoses Diagnosis GERD without esophagitis Esophageal reflux documented in this encounter Additional Health Concerns Assessment Noted Time PHQ-9 Depression Total Score: 0 08/05/19 2:13 PM EDT documented as of this encounter Care Teams Curb Hop Relationship Specialty Start Date End Date Payal Walker ANP [address] [place] [address] PCP - General Family Medicine 11/20/21 08/04/23 Neptali Palomo DMD [address] [place] [address] Dentist 05/18/24 documented as of this encounter
--- OUTSIDE RECORDS SUMMARY | 2025-01-31 13:23 | XMS_ITS | Encounter Summary ---
Author Organization [employer] Address [address] [facility] 7t [place] [address] Care Team Providers Care Electrician Powerhouse Name Role Phone Aaron Payal RUANO Primary Care Provider [phone] Neptali Palomo DMD Unavailable [phone] Reason for Visit * Reason Comments Med Refill Encounter Details Date Type Department Care Team (Late st Contact Info) Description 10/20/2022 Refill [facility] MEDICINE [address] [place], [place] [phone] [facility] 230 [place], [place] [phone] Social History Tobacco Use Types Packs/Day Years [...] Visit [facility] ADULT DENTAL [address] [place] [address] Larry Hopper documented as of this encounter Visit Diagnoses Not on filedocumented in this encounter Additional Health Concerns Assessment Noted Time PHQ-9 Depression Total Score: 0 08/05/19 23 2:13 PM EDT documented as of this encounter Care Teams Electrician Powerhouse Relationship Specialty Start Date End Date Payal Walker ANP [address] [place] [address] PCP - General Family Medicine 11/20/21 08/04/23 Neptali Palomo DMD [address] [place] [address] Dentist 05/18/24 documented as of this encounter
--- OUTSIDE RECORDS SUMMARY | 2025-01-31 13:23 | XMS_ITS | Encounter Summary ---
Author Organization [employer] [facility] Address [address] [place] [address] 7 [place] [address] Care Team Providers Care Lead Massage Therapist Name Role Phone Payal Walker Primary Care Provider [phone] Neptali Palomo DMD Unavailable [phone] Encounter Details Date Type Department Care Team (Latest Contact Info) Description 02/12/2020 Abstract [facility] CONVERSIONS Dental, Provider, DDS Social History [...] 2:15 PM EST Office Visit [facility]C ADULT DENTAL [address] [place] [address] Larry Hopper documented as of this encounter Visit Diagnoses Not on filedocumented in this encounter Care Teams Lead Massage Therapist Relationship Specialty Start Date End Date Payal Walker ANP [address] [place] [address] PCP - General Family Medicine 11/20/21 08/04/23 Neptali Palomo DMD [address] [place] [address] Dentist 05/18/24 documented as of this encounter
== END 2025-01-31 11:50 | disposition home or self-care (01) ==
LOC: HO.ENCR 11:07
PROVIDERS: PCP Nurse Practitioner Family; Visit Provider Internal Medicine Endocrinology, Diabetes & Metabolism
DX: E11.21 Type 2 diabetes mellitus with diabetic nephropathy (principal); Z79.4 Long term (current) use of insulin; E11.8 Type 2 diabetes mellitus with unspecified complications
CPT/HCPCS: 99214; G2211

== ENCOUNTER → 2025-01-31 11:07 | Outpatient (BNVA) | payer OTHER, SELFPAY | PROVIDERS: PCP Nurse Practitioner Family; Visit Provider Internal Medicine Endocrinology, Diabetes & Metabolism | DX: Z46.81 Encounter for fitting and adjustment of insulin pump (principal); E11.21 Type 2 diabetes mellitus with diabetic nephropathy; Z79.4 Long term (current) use of insulin | CPT/HCPCS: 82947; 83036; 99211; 99212 ==

== ENCOUNTER 2025-02-02 14:40 | Outpatient (AMB) | payer OTHER, SELFPAY ==
--- NOTE | 2025-02-02 14:50 | A.OFFVIS_ITS ---
Vital Signs 02/02/25 15:11 Height 5 ft 8 in BMI Reason not done Patient refused/unable BP 124/80 Blood Pressure Location Rt brachial Position Sitting Pulse 87 Pulse Source Pulse Oximeter Pulse Oximetry (%) 96 Oxygen Delivery Method Room Air Intake Visit Reasons: T2DM/Pump Help Intake Note: Patient present today to due to having issues with his insulin pump iLet: Patient receives Freestyle Agatha 3 supplies through: [facility] Last Diabetic Eye exam: Patient reports some time last fall Last Podiatry Visit: Does not see a County Extension Agent Random Glucose: Declined, DR Wheeler reviewed his blood sugar from the patient device. blood sugar in the 140s HgA1C: 7.5% 01/31/2025 Line Builder Required: Yes Line Builder Language: Certified Family Mediator Services: Line Builder Offered & Declined (DR Wheeler Speak Fluent Samoan) Accompanied by: Self / Same As Patient Allergies codeine (CODEINE) Allergy (Intermediate, Verified 01/31/25 11:23) TACHYCARDIA Medication List - Last Reconciled 02/02/25 by Pat Metcalf MD acetone (urine) test (Ketone Urine Test strips) As directed for glucose over 250, nausea vomiting or illness t.i.d. Admelog SoloStar U-100 Insulin (insulin lispro) 80-150 10 units 151-200 12 units 201-300 14 units over 300 16 units subcutaneously 3 times a day; 30 days MDD 42 units NS albuterol sulfate 90 mcg/actuation (Ventolin HFA) 2 puffs inhalation Q6H PRN benzonatate 100 mg PO bid-tid PRN 7 days cetirizine-pseudoephedrine 5-120 mg ER 1 tab PO BID 7 days clonazepam 1 mg PO BEDTIME PRN cyclobenzaprine 10 mg PO Q8H dapagliflozin propanediol (Farxiga) 5 mg PO QAM 90 days fluoxetine 40 mg PO DAILY fluticasone propionate 50 mcg/actuation 1 spray intranasal Q12H gabapentin 600 mg PO BEDTIME glucose (Dex4 Glucose) 16 grams (4 x 4 gram) PO Q15M PRN 30 days MDD 16 tablets hydroxyzine HCl 10 mg PO BEDTIME PRN insulin lispro (Admelog U-100 Insulin lispro) 60 units (0.6 mL) subcut DAILY losartan 25 mg PO DAILY 30 days needle (disp) 23 gauge (BD Integra Needle) As directed for changes in insulin cartridge q3days omeprazole 20 mg PO DAILY 90 days oxycodone 5 mg PO Q6H PRN pen needle, diabetic As directed pen needle, diabetic for qid NS pioglitazone 15 mg PO DAILY 30 days tadalafil 5 mg PO DAILY 90 days tamsulosin 0.4 mg PO BEDTIME 90 days Tresiba FlexTouch U-200 (insulin degludec) 28 units (0.14 mL) subcut BEDTIME NS HPI Comments Details: This is a 64-year-old male with a past medical history of pancreatitis, 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 He has met with the patient educator to discuss going on an insulin pump. He is going on an iLet pump He has met with business enterprise officer and feels that he would be able to carbohydrate g count with the resources she gave him. He was previously on Trulicity which was discontinued secondary to pancreatitis. Metformin caused GI side effects Patient was previously on Jardiance which worked very well, and he did not have side effects, but his insurance had stopped covering it at 1 point. Denies history of infections No lows on report but he does not report hypoglycemia Current diabetes medications: tresiba 28 units at bedtime ademalog T.i.d. with meals 80-150 12 units >200 14 units farxiga 5mg pioglitizone 15mg low dose as patient has a history of previous CVA and this may reduce the risk. Patient is not having any juice or soda. He does not smoke. He does not drink alcohol. He has a lot of salad and some rice in his diet. Avoids pasta. Was walking in the past but stopped due to cold weather. His weight is up 15 lb since the fall. Complications: Diabetic eye exam has appt this yr . No known retinopathy. Patient has nephropathy ( microalbuminuria). 03/23/2024 eGFR>60 08/09/2023 microalbumin 54.0 he is now being followed by Nephrology at [facility] Patient has a history of CVA. Interval history: Patient comes to the office today for acute pump failed and patient was unable to refill the cartrige nor he was able fill her cartridge. He also ran out of insulin. He reports that otherwise his pump was working fine before. Phsical exam: General: Well appearing. NAD. CV: RRR, no murmur. No edema. Resp:Lungs clear to auscultation bilaterally Abdomen: Soft, nontender. nondistended Extremities/Neuro: No weakness or tremor of outstretched hands [facility] Medical History Palpitations Pancreatitis Arthritis GERD (gastroesophageal reflux disease) CVA (cerebral vascular accident) Microalbuminuric diabetic nephropathy Type II diabetes with intermediate manager use of insulin Erectile dysfunction Vitamin D deficiency Multinodular thyroid Other and unspecified hyperlipidemia Essential hypertension Aortic valve calcification Surgical History History of esophagogastroduodenoscopy (EGD) H/O colonoscopy Family History Father Stroke Brother Stroke Mother Diabetes Social History Household Members: Spouse Housing: House Alcohol intake: never Patient Tobacco Use Status: Former Tobacco user e-Cigarette/Vaping Use: Never Used service: No Current occupational status: disabled Cognitive needs: No Hearing needs: No Vision needs: Yes Physical Exam Vital Signs: Last Vital Signs Pulse 87 02/02/25 15:11 BP 124/80 02/02/25 15:11 Pulse Ox 96 02/02/25 15:11 Oxygen Delivery Method Room Air 02/02/25 15:11 Office Meds Humalog U-100 Insulin 100 unit/mL subcutaneous solution Performing Provider: Pat Metcalf MD Performing Location: [facility] Endocrinology Administered by: Rachel Blanco RN on 02/02/25 15:17 Dose Route Admin Location Dispensed Lot Number Expiration Date [facility] Labor Expediter 160 unit subcut (via wearable injectr) 1.6 mL [id number] 03/09/25 7908-2411-23 [employer] Total Dispensed Waste 1.6 mL 0 % Comments: Insulin humalog used to fill ilet cartridge for iLet pump. This was done under supervision of Dr. Wheeler cartridge filled by patient. Assessment & Plan Assessment & Plan (1) Type II diabetes with intermediate manager use of insulin: Code(s): E11.9 - Type 2 diabetes mellitus without complications; Z79.4 - terminal gauger (current) use of insulin Category: Medical Qualifiers: Diabetes mellitus complication detail: with nephropathy Diabetes mellitus complication status: with kidney complications Qualified Code(s): E11.21 - Type 2 diabetes mellitus with diabetic nephropathy; Z79.4 - FDC (current) use of insulin Plan: This is a 63-year-old male with a history of type 2 diabetes the setting of pancreatitis being treated with basal-bolus insulin and Farxiga and pioglitazone with fair glycemic control with known microvascular complications of macrovascular complications namely nephropathy and CVA. Patient has started insulin pump therapy recently, and he was unable to proceed with the cartridge replacement. He was also concerned as he did not have insulin vials, and his insulin pens was almost empty. When he came to the office, he can with the instructions but he was unable to follow them, he also forgot to bring his new cartridge. We had the patient to change his cartridge unexplained [id number] the process, we will also provide the patient with insulin lispro 160 units to fill his cartridge, and provided with a script for insulin vials. We will also printed for the patient instructions in Prydeinig and Samoan so the patient can follow as the pump does not have any options to translate the pump to a Samoan. At the end pump was functional and delivering insulin prior to patient's depart. Orders: Orders AMB Insulin Lispro Injection Practice Supplied Today E11.21 - Type 2 diabetes mellitus with diabetic nephropathy, Z79.4 - terminal gauger (current) use of insulin Medications: New needle (disp) 23 gauge (BD Integra Needle) As directed for changes in insulin cartridge q3days 100 ea 3RF E11.21 - Type 2 diabetes mellitus with diabetic nephropathy, Z79.4 - terminal gauger (current) use of insulin insulin lispro (Admelog U-100 Insulin lispro) Use up to 60 units daily as needed with insulin pump. MDD:80 units 60 units (0.6 mL) subcut DAILY 30 mL 3RF E11.21 - Type 2 diabetes mellitus with diabetic nephropathy, Z79.4 - terminal gauger (current) use of insulin Patient Instructions: Guide to Replacing the Insulin Cartridge in the iLet Bionic Pancreas (Insulin- Only Mode) Gu?a para Reemplazar el Cartucho de Insulina en el P?ncreas Bi?zoë iLet (Modo Solo Insulina) Introduction / Introducci?n When your iLet Bionic Pancreas alerts you that the insulin cartridge is low or empty, it?s time to replace the cartridge (this should be done at least every 3 days or sooner if insulin runs out [email or web address] ). The following is a [id number] patient guide to safely change the insulin- only cartridge and get your pump up and running again. Each step is provided in Prydeinig followed by Samoan. Cuando dsouza p?ncreas bi?zoë iLet le avisa que el cartucho de insulina est? bajo o vac?o, es hora de reemplazarlo (debe hacerse al menos cada 3 d?as o antes si la insulina se agota [email or web address] ). A continuaci?n, encontrar? wilber gu?a paso a paso para pacientes que le ayudar? a cambiar el cartucho de insulina de forma connelly y a que dsouza bomba vuelva a funcionar. Cada paso se proporciona gabrielle en ingl?s y luego en espa?ol. Materials Needed / Materiales Necesarios Before you begin, gather all required supplies to perform the cartridge change: Materials for an iLet cartridge change (new cartridge, syringe with needle, insulin vial, infusion set, etc.) New iLet insulin cartridge (1.6 mL) ? (Empty cartridge for manual fill, or a pre-filled Fiasp? PumpCart if prescribed) [email or web address] . Cocoa cartucho de insulina iLet (1,6 mL) ? (Cartucho vac?o para llenar manualmente, o un cartucho precargado Fiasp? PumpCart si as? lo usa) [email or web address] . Rapid-acting U-100 insulin vial ? (If using empty cartridge, use insulin lispro U-100 or aspart U-100 from a vial such as Humalog? or NovoLog?) [email or web address] . Frasco de insulina de acci?n r?pida U-100 ? (Si utiliza un cartucho vac?o, use insulina lispro U-100 o aspartato U-100 de un vial, abdulkadir Humalog? o NovoLog?) [email or web address] . Sterile syringe (with markings up to ~2 mL) and a compatible needle ? (Typically provided with iLet cartridge kits; used to fill the cartridge) [email or web address] . Jeringa est?ril (con marcas hasta ~2 mL) y aguja compatible ? (Por lo general provistas con los kits de cartuchos iLet; se usan para llenar el cartucho) [email or web address] . Alcohol wipes ? (To disinfect the insulin vial top and infusion site) [email or web address] . Toallitas de alcohol ? (Para desinfectar la parte superior del vial de insulina y el sitio de infusi?n) [email or web address] . New infusion set and tubing ? (A new Inset or Contact Detach infusion set, including its tubing, to replace the old one; iLet Connect Luer lock adapter is typically included with the cartridge or infusion set kit) [email or web address] . Cocoa juego de infusi?n y tubing ? (Un nuevo set de infusi?n Inset o Contact Detach, incluyendo dsouza tubing, para reemplazar el anterior; el adaptador de conector Luer iLet Connect suele venir con el kit del cartucho o del set de infusi?n) [email or web address] . Sharps container ? (For safe disposal of used needles and the old cartridge). Contenedor de objetos punzantes ? (Para desechar de forma connelly las agujas usadas y el cartucho cammy). Safety Preparations / Preparativos de Seguridad Wash and dry your hands before handling any supplies or touching the infusion site. L?vese y s?quese las delvis antes de manipular los suministros o tocar el sitio de infusi?n. Choose an appropriate time and place: Avoid changing the cartridge right before bedtime or when you won?t be able to monitor your glucose for a few hours. Pick a clean, well-lit area to work on. Elija un momento y lugar adecuados: Evite cambiar el cartucho soy antes de acostarse o cuando no pueda monitorear dsouza glucosa magan unas horas. Trabaje en un ?sergio limpia y juwan cyrus. Check all new parts: Ensure the new cartridge, infusion set, and iLet Connect adapter are sealed and undamaged before use [email or web address] . Do not reuse any old supplies (cartridges, tubing, or connectors are single- use only) [email or web address] . Verifique todas las piezas nuevas: Aseg?rese de que el nuevo cartucho, el set de infusi?n y el adaptador iLet Connect est?n sellados y sin da?os antes de usarlos [email or web address] . No reutilice brooks?n suministro antiguo (los cartuchos, tubos o conectores son de un solo uso) [email or web address] . Use room-temperature insulin if possible: Cold insulin can form air bubbles more easily. If your insulin vial was refrigerated, allow it to reach room temperature before filling the cartridge (this can make air removal easier ? a general best practice). Use insulina a temperatura ambiente si es posible: La insulina fr?a puede formar burbujas de aire m?s f?cilmente. Si dsouza vial de insulina estaba refrigerado, d?jelo alcanzar la temperatura ambiente antes de llenar el cartucho (esto facilita la eliminaci?n de aire ? wilber buena pr?ctica general). Never fill the tubing or cartridge while connected to your body: Always disconnect the pump from your infusion site before filling or priming to avoid accidental insulin delivery [email or web address] . Nunca llene el tubo ni el cartucho mientras est? conectado a dsouza cuerpo: Desconecte siempre la bomba de dsouza sitio de infusi?n antes de llenar o cebar el sistema para evitar wilber administraci?n accidental de insulina [email or web address] . [id number] Instructions / Instrucciones Paso a Paso 1. Acknowledge the iLet alert and prepare for cartridge change. The iLet will notify you when your cartridge is low (around 20 units remaining) or empty [email or web address] . As soon as you see a ?Change Cartridge? alert or an ?Insulin cartridge empty? message, plan to replace it promptly (the pump cannot deliver insulin when the cartridge is empty, which can lead to high blood sugar or DKA if not addressed) [email or web address] . Tap the alert to begin the cartridge change process on your iLet device. 1. Reconozca la alerta del iLet y prep?rese para el cambio de cartucho. El iLet le notificar? cuando dsouza cartucho est? bajo (quedan ~20 unidades) o vac?o [email or web address] . Lee pronto abdulkadir andres wilber alerta de ?Cambiar Cartucho? o el mensaje de ?Cartucho de insulina vac?o?, planee reemplazarlo de inmediato (la bomba no puede administrar insulina cuando el cartucho est? vac?o, lo que puede llevar a hiperglucemia o cetoacidosis diab?janell si no se atiende) [email or web address] . Toque la alerta en el iLet para comenzar el proceso de cambio de cartucho en s u dispositivo. 2. Gather your supplies and a clean workspace. Collect all the materials listed above (new cartridge, insulin vial, syringe/needle, wipes, new infusion set, etc.) and place them on a clean surface. Ensure the insulin vial and new cartridge are within easy reach. If using a new insulin vial, remove its cap and wipe the rubber stopper with an alcohol wipe, then let it dry completely [email or web address] . 2. Re?na cristina suministros y prepare un espacio limpio. Junte todos los materiales mencionados arriba (cartucho nuevo, vial de insulina, jeringa/aguja, toallitas, nuevo set de infusi?n, etc.) y col?quelos sobre wilber superficie limpia. Aseg?rese de tener el vial de insulina y el nuevo cartucho al alcance. Si va a usar un vial de insulina nuevo, retire dsouza tapa y limpie el tap?n de goma con wilber toallita de alcohol, luego d?jelo secar por completo [email or web address] . 3. Wash your hands and get the pump ready. Wash and dry your hands thoroughly. If your iLet isn?t already in the change process, navigate to the Home screen and tap the Insulin Cartridge icon (insulin drop symbol) [email or web address] . On the menu, select ?Change Cartridge and Tubing? to indicate you?ll be changing both the cartridge and infusion set [email or web address] . The iLet will display on-screen instructions for the change. (If you only intended to change the cartridge and not the infusion set, you could select a different option, but it?s highly recommended to change the infusion set and tubing with each new cartridge for safety and efficacy [email or web address] .) 3. L?vese las delvis y prepare la bomba. L?vese y s?quese juwan las delvis. Si dsouza iLet a?n no est? en el proceso de cambio, vaya a la pantalla de inicio y toque el ?cono de Cartucho de Insulina (s?mbolo de gota de insulina) [email or web address] . En el men?, seleccione ?Cambiar Cartucho y Tubo? para indicar que cambiar? tanto el cartucho abdulkadir el set de infusi?n [email or web address] . El iLet mostrar? instrucciones en pantalla para el cambio. (Si solo tuviera que cambiar el cartucho y no el set de infusi?n, podr?a seleccionar otra opci?n, lazara se recomienda encarecidamente cambiar el set de infusi?n y el tubo con cada cartucho nuevo por seguridad y eficacia [email or web address] .) 4. >>DISCONNECT<< the infusion tubing from your body. Important: Before proceeding further, detach the infusion set from your insertion site on your body [email or web address] . You can do this by using the set?s disconnect mechanism: for an Inset cannula set, pinch or squeeze the sides of the connector at the site and pull it straight out of the cannula housing; for a Contact Detach steel set, disconnect the tubing from the small adhesive connector patch (leaving the steel needle in place in your skin for now, or remove it if you plan to change the site) [email or web address] . Removing the pump from your body now ensures no insulin will accidentally be delivered during the change [email or web address] . (The iLet screen will also remind you to disconnect at this point.) 4. >>DESCONECTE<< el tubo de infusi?n de dsouza cuerpo. Importante: Antes de continuar, desconecte el set de infusi?n de dsouza sitio de inserci?n en el cuerpo [email or web address] . H?dorina usando el mecanismo de desconexi?n del set: si tiene un set de c?nula Inset, presione o apriete suavemente los costados del conector en el sitio y j?doris directamente fuera del alojamiento de la c?nula; si tiene un set de aguja de fausto Contact Detach, desconecte el tubo del jhonathan?o parche adhesivo conector (dejando la aguja de fausto en dsouza piel por ahora, o ret?rela si planea cambiar el sitio) [email or web address] . Quitar la bomba de dsouza cuerpo ahora garantiza que no se administre insulina accidentalmente magan el cambio [email or web address] . (La pantalla del iLet tambi?n le recordar? que se desconecte en jeana punto.) 5. Prepare the new cartridge for filling. Remove the new empty iLet cartridge from its packaging and place it upright on the table (the end with the rubber septum facing up) [email or web address] . Also take out the syringe and needle from their packaging. Attach the needle tightly onto the syringe tip, twisting if necessary to secure it [email or web address] . Leave the protective needle cap on for now. Pull the syringe plunger back to draw about 1.8 mL of air into the syringe (approximately [facility] between the 1.5 and 2 mL anthony) [email or web address] . This air will be used to equalize pressure in the insulin vial when you draw insulin. 5. Prepare el nuevo cartucho para llenarlo. Saque el cartucho iLet vac?o de dsouza empaque y col?quelo verticalmente sobre la jewell (con el extremo del septum de goma hacia arriba) [email or web address] . Tambi?n saque la jeringa y la aguja de cristina empaques. Conecte la aguja firmemente a la punta de la jeringa, gir?ndola si es necesario para ajustarla [email or web address] . Deje puesta la tapa protectora de la aguja por ahora. Tire del ?mbolo de la jeringa hacia atr?s para aspirar aproximadamente 1,8 mL de aire en la jeringa (aproximadamente a la mitad entre las marcas de 1,5 y 2 mL) [email or web address] . Jeana aire se usar? para equilibrar la presi?n en el vial de insulina cuando extraiga la insulina. 6. Fill the syringe with insulin from the vial. Remove the needle cap carefully (do not touch the exposed needle). cupola mechanic your insulin vial and insert the needle into the vial?s rubber stopper while the vial is upright on the table [email or web address] . Push down on the syringe plunger to inject the 1.8 mL of air into the vial [email or web address] (try not to inject air directly into the insulin liquid; aim the air into the air space in the vial). Without withdrawing the needle, invert the vial and syringe together (turn them upside-down) [email or web address] . Ensure the needle tip remains submerged in the insulin. Now slowly pull back on the syringe plunger to draw insulin from the vial until you have about 1.8 mL of insulin in the syringe [email or web address] . You should see the syringe fill to roughly the same level as the air you pushed in. 6. Llene la jeringa con insulina del vial. Retire con cuidado la tapa de la aguja (no toque la aguja expuesta). Scott dsouza vial de insulina e inserte la aguja en el tap?n de goma del vial mientras el vial est? en posici?n vertical sobre la jewell [email or web address] . Empuje el ?mbolo de la jeringa hacia abajo para inyectar los 1,8 mL de aire en el vial [email or web address] (procure no inyectar aire directamente en el l?quido de insulina; apunte el aire al espacio de aire del vial). Sin retirar la aguja, invierta el vial con la jeringa (p?ngalos boca abajo) [email or web address] . Aseg?rese de que la punta de la aguja permanezca sumergida en la insulina. Ahora tire lentamente del ?mbolo de la jeringa para extraer insulina del vial hasta tener aproximadamente 1,8 mL de insulina en la jeringa [email or web address] . Deber?a otilia que la jeringa se llena m?s o menos al mismo nivel que el aire que inyect?. 7. Remove air bubbles from the syringe. While the syringe is still inverted (needle up inside the vial), check for air bubbles in the syringe. If you see bubbles, gently flick the syringe barrel with your finger so the bubbles rise to the top (near the needle) [email or web address] . Then slowly press the plunger to push the air out into the vial [email or web address] . After expelling air, you can pull back on the plunger again to draw a bit more insulin if needed, until you have ~1.8 mL and no large air bubbles [email or web address] . Once the syringe is filled with the correct amount of insulin and is free of bubbles, withdraw the needle from the vial [email or web address] . Set the syringe down carefully (needle still attached) ? do not let the needle touch anything to keep it sterile. 7. Elimine las burbujas de aire de la jeringa. Mientras la jeringa sigue invertida (aguja hacia arriba dentro del vial), verifique si hay burbujas de aire en la jeringa. Si observa burbujas, golpee suavemente el cilindro de la jeringa con dsouza dedo para que las burbujas suban hacia la punta (cerca de la aguja) [email or web address] . Luego presione lentamente el ?mbolo para empujar el aire de vuelta al vial [email or web address] . Despu?s de expulsar el aire, tire nuevamente del ?mbolo para aspirar un poco m?s de insulina si es necesario, hasta tener ~1,8 mL y que no queden burbujas grandes [email or web address] . Wilber vez que la jeringa contiene la cantidad correcta de insulina y est? agatha de burbujas, retire la aguja del vial [email or web address] . Deje la jeringa a un lado con cuidado (manteniendo la aguja puesta) ? no permita que la aguja toque nada para conservar la esterilidad. 8. Fill the new iLet cartridge with insulin. cupola mechanic the empty iLet cartridge and hold it upright on the table. With your other hand, insert the syringe needle into the cartridge?s septum (rubber top) [email or web address] . Slowly press down on the syringe plunger to begin transferring insulin from the syringe into the cartridge [email or web address] . You should see the red plunger inside the cartridge start moving downward as the cartridge fills. Continue pressing slowly until all the insulin is in the cartridge. Do not overfill: the cartridge is full when that red plunger reaches the top of the cartridge chamber [email or web address] . Stop if you reach ~1.6?1.8 mL in the cartridge or if you feel resistance. Overfilling can pop the plunger out and damage the cartridge [email or web address] . 8. Llene el nuevo cartucho iLet con insulina. Scott el cartucho iLet vac?o y mant?ngalo vertical sobre la jewell. Con la otra mano, inserte la aguja de la jeringa en el septum (tap?n de goma) del cartucho [email or web address] . Presione lentamente el ?mbolo de la jeringa para empezar a transferir la insulina de la jeringa al cartucho [email or web address] . Deber?a otilia que el ?mbolo fontanez dentro del cartucho comienza a moverse hacia abajo a medida que el cartucho se llena. Siga presionando despacio hasta que toda la insulina est? dentro del cartucho. No lo sobrellene: el cartucho est? lleno cuando el ?mbolo fontanez llega a la parte superior de la c?daniel del cartucho [email or web address] . Det?ngase si alcanza ~1,6?1,8 mL en el cartucho o si nota resistencia. Llenar en exceso puede hacer que el ?mbolo se salga y da?e el cartucho [employer] . Tip: If you cannot push all 1.8 mL in without resistance, you likely have filled enough. It?s normal for a small gap to remain. Never force insulin into the cartridge. Consejo: Si no puede inyectar los 1,8 mL completos sin resistencia, seguramente ya lovelace llenado suficiente. Es normal que quede un jhonathan?o espacio. Nunca fuerce la insulina dentro del cartucho. 9. Remove any air bubbles from the filled cartridge. After filling, inspect the cartridge for air bubbles. If you see any large air bubbles: keep the syringe in place for now and gently tap the side of the cartridge with your finger or tap the cartridge on the table. This will make the bubbles rise to the top (toward the cartridge?s neck) and they may coalesce into one big bubble [employer]- [employer] . Then, carefully reposition the syringe needle so its tip is at the air bubble, and pull back on the plunger slightly to suck the air bubble out of the ca rtridge into the syringe [employer] . Withdraw as much air as possible. Be sure to keep the needle straight; do not tilt it inside the cartridge, as this could tear the rubber septum [employer] . If an air bubble is near the top and you can?t get the needle to it, one trick is to slowly start pulling the needle out (while keeping slight pressure on the plunger) until the needle tip enters the bubble, then pull back the plunger to remove it [employer] . When you?ve removed the major bubbles, you can expel the air from the syringe (point the syringe needle up and push the air out) [employer] . If needed, draw a bit more insulin from the vial into the syringe and inject it into the cartridge to top it off after removing bubbles [email or web address] . The cartridge should end up with no large air pockets, and no more than ~1.8 mL total insulin. 9. Elimine cualquier burbuja de aire del cartucho lleno. Despu?s de llenar, inspeccione el cartucho en busca de burbujas de aire. Si ve alguna burbuja alonzo: deje la jeringa insertada por ahora y golpee suavemente el costado del cartucho con el dedo o d? golpecitos con el cartucho sobre la jewell. [place] amy? que las burbujas suban hacia arriba (hacia el fer del cartucho) y pueden unirse en wilber burbuja m?s alonzo [email or web address] . Luego, con cuidado recoloque la punta de la aguja de modo que quede donde est? la burbuja de aire, y tire del ?mbolo ligeramente para aspirar la burbuja de aire del cartucho hacia la jeringa [email or web address] . Extraiga tanto aire abdulkadir sea posible. Aseg?rese de mantener la aguja recta; no la incline dentro del cartucho, ya que podr?a rasgar el septum de goma [email or web address] . Si wilber burbuja de aire est? cerca de la parte superior y no logra alcanzarla con la aguja, puede comenzar a sacar la aguja lentamente (mientras mantiene wilber ligera presi?n en el ?mbolo) hasta que la punta de la aguja quede dentro de la burbuja; luego tire del ?mbolo para quitarla [email or web address] . Wilber vez eliminadas las burbujas principales, expulse el aire de la jeringa (coloque la aguja apuntando hacia arriba y empuje el ?mbolo para sacar el aire) [email or web address] . Si lo necesita, extraiga un poco m?s de insulina del vial a la jeringa y a??dala al cartucho para completarlo tras quitar las burbujas [email or web address] . El cartucho debe quedar sin bolsas grandes de aire y con no m?s de ~1,8 mL de insulina en total. 10. Remove the syringe and seal the cartridge. Once the cartridge is filled and free of large bubbles, carefully pull out the syringe from the cartridge?s septum [email or web address] . Immediately discard the used syringe and needle in a sharps container [email or web address] . The cartridge is now filled with insulin and ready. Make sure the red plunger in the cartridge is near the top (indicating it?s full) and that you did not accidentally spill any insulin. Set the filled cartridge aside on a clean surface. 10. Retire la jeringa y selle el cartucho. Wilber vez que el cartucho est? lleno y sin burbujas grandes, saque con cuidado la jeringa del septum del cartucho [email or web address] . Deseche de inmediato la jeringa y la aguja usadas en un contenedor de objetos punzantes [email or web address] . El cartucho ahora est? lleno de insulina y listo. Verifique que el ?mbolo fontanez del cartucho est? cerca de la parte superior (lo que indica que est? lleno) y que no haya derramado insulina accidentalmente. Deje el cartucho lleno a un lado, en wilber superficie limpia. 11. Start the cartridge change on the iLet (pump interface). On your iLet device, after selecting ?Change Cartridge & Tubing,? the screen will guide you. It will typically display a checklist or steps. Tap ?Continue? or ?Next? if prompted. The iLet will instruct you to confirm you have a new cartridge ready. At this point, it may also remind you to disconnect from your body (which you?ve done) and that insulin delivery will be paused. 11. Inicie el cambio de cartucho en el iLet (interfaz de la bomba). En dsouza dispositivo iLet, tras seleccionar ?Cambiar Cartucho y Tubo?, la pantalla lo guiar?. Usualmente mostrar? wilber lista de verificaci?n o pasos. Toque ?Continuar? o ?Siguiente? si se le indica. El iLet le pedir? que confirme que tiene un cartucho nuevo listo. En jeana punto, tambi?n puede recordarle que se desconecte de dsouza cuerpo (lo cual ya hizo) y que la administraci?n de insulina se pausar?. 12. Engage the pump?s rewind function. The iLet will now prompt you to ?Rewind? the pump (this retracts the internal plunger to make room for the new cartridge) [email or web address] . On the screen, you?ll see a slider or button for rewinding ? drag the Rewind slider to the right (or press the Rewind button) as instructed [email or web address] . The pump motor will begin rewinding; you may hear a whirring sound. Wait until the rewind is fully complete [email or web address] ? the iLet will typically show a message when it?s done (e.g. ?Rewind complete?). Do not try to insert the new cartridge before or during the rewind! Doing so can force insulin out and may damage the pump [email or web address] . 12. Active la funci?n de rebobinado de la bomba. A continuaci?n, el iLet le pedir? que ?Rebobine? la bomba (esto retrae el ?mbolo interno para hacer espacio para el nuevo cartucho) [email or web address] . En la pantalla otilia? un control deslizante o bot?n para rebobinar ? deslice el control de Rebobinar hacia la derecha (o presione el bot?n de Rebobinar) seg?n las indicaciones [email or web address] . El motor de la bomba comenzar? a rebobinar; puede escuchar un neftali mec?zoë. Espere hasta que el rebobinado se complete por completo [email or web address] ? el iLet normalmente mostrar? un mensaje cuando termine (ej. ?Rebobinado completo?). ?No intente insertar el nuevo cartucho antes o magan el rebobinado! Hacerlo puede empujar insulina fuera del cartucho y podr?a da?ar la bomba [email or web address] . The screen may say ?Please wait? rewinding.? This process only takes a short time (several seconds). Es posible que la pantalla diga ?Espere? rebobinando.? Jeana proceso solo ashley un corto tiempo (varios segundos). 13. Remove the old cartridge (and old tubing/adapter). Once rewind is finished, open the cartridge compartment of the iLet. (The iLet?s cartridge is usually accessible on the side; remove any cartridge door or cap as instructed by the user manual.) Pull out the old cartridge from the device [email or web address] . Also remove the attached iLet Connect (Luer lock adapter) and tubing if they didn?t come out with the cartridge ? they may be connected, so usually pulling the cartridge also pulls out the adapter and tubing together. Dispose of the old cartridge, old adapter, and old infusion set tubing ? they should be discarded and not reused [email or web address] . If you haven?t already removed your old infusion set from your body, you can remove it now (peel off the old cannula or needle and discard it according to local sharps rules). 13. Retire el cartucho cammy (y el tubo/adaptador antiguos). Wilber vez finalizado el rebobinado, mariia el compartimento del cartucho del iLet. (El cartucho del iLet suele ser accesible en un costado; retire la tapa del compartimento seg?n las instrucciones del manual de usuario). Saque el cartucho cammy del dispositivo [email or web address] . Tambi?n retire el iLet Connect (adaptador Luer) cammy y el tubing cammy si no salieron junto con el cartucho ? pueden estar conectados, as? que por lo general al tirar del cartucho tambi?n se extrae el adaptador con el tubo. Deseche el cartucho cammy, el adaptador cammy y el tubing del set de infusi?n cammy ? deben descartarse y no reutilizarse [email or web address] . Si a?n no quit? el antiguo set de infusi?n de dsouza cuerpo, puede retirarlo ahora (despegue la c?nula o aguja vieja y michel?rancho seg?n las normas locales para objetos punzantes). 14. Insert the filled new cartridge into the iLet. Now take the new cartridge filled with insulin and slide it into the cartridge slot of the pump [email or web address] . It should go in smoothly. Press it firmly until it is fully seated ? the cartridge?s bottom should sit flush with the device casing [email or web address] . You should not see any gap. Do not force it if it?s not going in easily. If you feel resistance or it doesn?t click in, remove it and double-check that the pump was rewound completely (rewind again if necessary) [email or web address] . Also ensure you are inserting it in the correct chamber (the iLet Dual-hormone device has two chambers, but for insulin-only use make sure you use the insulin side as directed). The new cartridge is now in place. 14. Inserte el cartucho nuevo lleno en el iLet. Ahora tome el cartucho nuevo lleno de insulina e ins?rtelo en la ranura del cartucho de la bomba [email or web address] . Deber?a entrar sin dificultad. Presi?edward firmemente hasta que quede completamente asentado ? la base del cartucho debe quedar al zeny con la carcasa del dispositivo [email or web address] . No deber?a otilia ninguna separaci?n. No lo fuerce si no entra con facilidad. Si siente resistencia o no encaja, ret?relo y verifique que la bomba haya rebobinado completamente (rebobine de nuevo si es necesario) [email or web address] . Adem?s, aseg?rese de insertarlo en la c?daniel correcta (el dispositivo iLet de doble hormona tiene dos c?maras, lazara para usar solo insulina aseg?rese de usar el lado de insulina seg?n las indicaciones). El nuevo cartucho ya est? en dsouza lugar. Never connect the tubing or adapter to the cartridge before it?s inside the pump! Attaching the cartridge to the tubing outside of the iLet can twist or tear the cartridge septum and cause leakage [email or web address] . Always install the cartridge into the pump first. Nunca conecte el tubo ni el adaptador al cartucho antes de colocarlo dentro de la bomba. Conectar el cartucho al tubo fuera del iLet puede torcer o rasgar el septum del cartucho y provocar fugas [email or web address] . Siempre instale gabrielle el cartucho en la bomba. 15. Attach a new infusion set tubing to a new iLet Connect adapter. Take your new infusion set tubing (the long tube with Luer lock end) and the new iLet Connect adapter. Connect them by screwing the Luer lock: twist the tubing?s connector onto the iLet Connect adapter clockwise (to the right) until it is snug [email or web address] . Ensure the connection is straight and tight; there should be no gap between the tubing end and the adapter [email or web address] . A loose connection can cause insulin leaks or allow air in [email or web address] , so double-check that it?s secure. Do not connect this assembly to the pump or cartridge yet ? just prepare the tubing and adapter together. 15. Conecte el tubo de un nuevo set de infusi?n a un nuevo adaptador iLet Connect. Scott el tubo de infusi?n nuevo (el tubo kailey con conector Luer en la punta) y el nuevo adaptador iLet Connect. Con?ctelos atornillando el conector Luer: gire el conector del tubo en el adaptador iLet Connect en el sentido de las agujas del reloj (hacia la derecha) hasta que quede ajustado [email or web address] . Verifique que la conexi?n quede recta y apretada; no debe gerri separaci?n entre el extremo del tubo y el adaptador [email or web address] . Wilber conexi?n floja puede provocar fugas de insulina o la entrada de aire [email or web address] , as? que confirme que est? connelly. Todav?a no conecte jeana conjunto a la bomba ni al cartucho ? solo prepare el tubo y el adaptador juntos. 16. Insert the new adapter (with tubing) into the iLet and lock it. Now take the assembled iLet Connect + tubing and insert the adapter into the pump?s cartridge port (on the iLet device) where the cartridge was placed [email or web address] . Align it such that the adapter?s flat side faces outward (per the pump design) and push it in straight until it clicks or sits flush against the iLet [email or web address] . You will feel it engage the cartridge inside. Once inserted, twist the adapter a quarter-turn to the right (clockwise) to lock it onto the cartridge [email or web address] . The flat side of the adapter will line up with the flat edge of the cartridge compartment when fully locked. The tubing is now connected to the new cartridge inside the pump. 16. Inserte el nuevo adaptador (con el tubo) en el iLet y trab?jelo. Ahora tome el conjunto de iLet Connect + tubing y inserte el adaptador en el karma del cartucho de la bomba (en el dispositivo iLet) donde coloc? el cartucho [email or web address] . Eduardo?kym de modo que el lado plano del adaptador blayne hacia afuera (seg?n el dise?o de la bomba) y emp?jelo recto hasta que brittany clic o quede al zeny contra el iLet [email or web address] . Sentir? que se acopla con el cartucho adentro. Wilber vez insertado, gire el adaptador un cuarto de vuelta hacia la derecha (en el sentido de las agujas del reloj) para trabarlo con el cartucho [email or web address] . El lado plano del adaptador quedar? alineado con el borde plano del compartime nto del cartucho cuando est? completamente asegurado. El tubo ahora est? conectado al nuevo cartucho dentro de la bomba. Ensure you are using a new adapter and tubing. Do not reuse old ones. Aseg?rese de estar usando un adaptador y tubing nuevos. No reutilice los antiguos. 17. Prime (fill) the new tubing with insulin. With the new cartridge and tubing in place (still disconnected from your body), it?s time to fill the tubing with insulin. On the iLet, tap ?Go to Fill Tubing? (the device should be prompting this on screen now) [employer] . The pump will prepare to push insulin through the tubing. Hold the end of the infusion set tubing (the needle or cannula end) over a paper towel or tissue. Now, on the iLet screen, press and hold the ?Press & Hold? button to start pumping insulin through the tubing [employer] . You should see insulin gradually moving through the tube. Continue holding the button until you see drops of insulin coming out of the tip of the infusion set (meaning the tubing is fully purged of air) [employer] . Make sure there are no air bubbles visible in the tubing. Once you see a steady drop at the end and clear insulin (no air), release the button. The iLet will ask ?Do you see drops?? ? tap ?Yes? on the screen if you do [email or web address] . (If you do not see insulin drops yet or saw air bubbles pass through, tap ?No? to continue priming; press & hold again until the tubing is completely filled with insulin and drops appear, then press Yes) [email or web address] . Finally, tap ?Next? to confirm the tubing fill is complete [email or web address] . 17. Cebe (llene) el nuevo tubing con insulina. Con el nuevo cartucho y tubing colocados (y a?n desconectados de dsouza cuerpo), es momento de llenar el tubo con insulina. En el iLet, toque ?Ir a Llenar el Tubo? (el dispositivo deber?a estar indicando jeana paso en la pantalla ahora) [email or web address] . La bomba se preparar? para empujar insulina a kasie?s del tubo. Sostenga el ext linnette del tubo del set de infusi?n (la punta de la aguja o c?nula) sobre wilber toalla de papel o pa?uelo desechable. Ahora, en la pantalla del iLet, mantenga presionado el bot?n ?Press & Hold? (Mantenga oprimido) para comenzar a bombear insulina a kasie?s del tubo [email or web address] . Deber?a otilia la insulina avanzando gradualmente por el tubo. Siga manteniendo pulsado el bot?n hasta que andres gotas de insulina saliendo por la punta del set de infusi?n (lo que significa que el tubo est? totalmente purgado de aire) [email or web address] . Aseg?rese de que no queden burbujas de aire visibles en el tubo. Wilber vez que andres wilber gota continua en la punta y leslie insulina (sin aire), suelte el bot?n. El iLet preguntar? ??Ve gotas?? ? toque ?S?? en la pantalla si ve las gotas [email or web address] . (Si no ve a?n gotas de insulina o mateo pasar burbujas de aire, toque ?No? para continuar cebando; mantenga oprimido nuevamente hasta que el tubo est? completamente lleno de insulina y aparezcan gotas, luego pulse S?) [email or web address] . Finalmente, toque ?Siguiente? para confirmar que el llenado del tubo se complet? [email or web address] . 18. Insert a new infusion set into your body. Now that the tubing is primed, you will place a new infusion set in your body to resume insulin delivery. Choose a fresh insertion site (abdomen, hip, thigh, or other recommended location, avoiding any irritated or scarred areas). Insert the new infusion set according to its instructions: for an Inset (soft cannula) set, use the infusion set?s insertion device to insert the cannula at a 90? angle (for belly/thigh) ? peel the backing, position the water chemist against the skin, and press the release to insert the cannula, then remove the water chemist and needle; for a Contact Detach (steel needle) set, manually insert the needle at a 90? angle into the skin, apply the adhesive patch, and secure the second adhesive with the disconnect hub. Make sure the cannula/needle is fully in place and the adhesive is secure. After insertion, connect the primed tubing to the new infusion set?s base (if it?s not already connected). Inset sets typically have you attach the tubing by snapping or twisting the connector onto the cannula base; Contact Detach sets will already be connected (you just removed the disconnect earlier to insert, now you can reconnect the pump tubing if needed). 18. Inserte un nuevo set de infusi?n en dsouza cuerpo. Ahora que el tubo est? cebado, colocar? un nuevo set de infusi?n en dsouza cuerpo para reanudar la administraci?n de insulina. Elija un sitio de inserci?n nuevo (abdomen, cadera, muslo u otra ubicaci?n recomendada, evitando zonas irritadas o con cicatrices). Inserte el nuevo set de infusi?n de acuerdo con cristina instrucciones: si es un set Inset (c?nula blanda), use el dispositivo de inserci?n del set para insertar la c?nula en un ?ngulo de 90? (en el abdomen/muslo) ? retire el protector adhesivo, coloque el inyector contra la piel y presione el disparador para insertar la c?nula; luego retire el dispositivo de inserci?n y la aguja; si es un set Contact Detach (aguja de fausto), inserte manualmente la aguja en un ?ngulo de 90? en la piel, coloque el parche adhesivo y fije la segunda pegatina con el conector de desconexi?n. Aseg?rese de que la c?nula/aguja est? completamente insertada y el adhesivo est? juwan pegado. Despu?s de la inserci?n, conecte el tubo cebado a la base del nuevo set de infusi?n (si es que no viene ya conectado). En los sets Inset, normalmente debe conectar el tubo encajando o girando el conector en la base de la c?nula; los sets Contact Detach ya vienen conectados (simplemente desconect? la bomba antes para insertar; ahora puede reconectar el tubo de la bomba seg?n sea necesario). Note: Ensure the new site is at least a couple of inches away from the previous site and in healthy subcutaneous tissue. Nota: Aseg?rese de que el nuevo sitio est? al menos a unos cent?metros del sitio anterior y en tejido subcut?eliz saludable. 19. Fill the infusion set cannula (if applicable). After connecting the new infusion set, your iLet will prompt you to Fill Cannula (this is a small amount of insulin to prime the inside of a soft cannula). On the iLet, navigate (if not automatically prompted) to the Fill Cannula option. Select the cannula type and length that corresponds to your infusion set (e.g., 6 mm soft cannula, or ?steel needle? if using Contact Detach) [email or web address] . The device will suggest or automatically calculate an appropriate fill volume (for example, around 0.5 units for a 6 mm soft cannula; steel needles usually do not require any fill). Now drag the ?Fill? slider to the right to deliver the cannula fill insulin into the newly inserted set [email or web address] . The pump will deliver a small bolus to fill the empty space in the cannula. When the cannula fill is complete, the iLet should indicate that the cannula is filled. 19. Llene la c?nula del set de infusi?n (si corresponde). Despu?s de conectar el nuevo set de infusi?n, dsouza iLet le pedir? que realice el Llenado de la C?nula (es wilber jhonathan?a cantidad de insulina para cebar el interior de wilber c?nula blanda). En el iLet, vaya (si no aparece autom?ticamente) a la opci?n Llenar C?nula. Seleccione el tipo y longitud de c?nula que corresponden a dsouza set de infusi?n (p. ej., c?nula blanda de 6 mm, o ?aguja de fausto? si usa Contact Detach) [email or web address] . El dispositivo sugerir? o calcular? autom?ticamente un volumen de llenado adecuado (por ejemplo, alrededor de 0,5 unidades para wilber c?nula blanda de 6 mm; las agujas de fausto por lo general no requieren llenado). Ahora deslice el control ?Fill? (Llenar) hacia la derecha para administrar la insulina de cebado de la c?nula en el set reci?n insertado [email or web address] . La bomba entregar? un jhonathan?o coleman para llenar el espacio vac?o en la c?nula. Cuando se complete el llenado de la c?nula, el iLet deber?a indicar que la c?nula est? llena. 20. Confirm completion and resume insulin delivery. The iLet will show a confirmation that the cartridge change is complete. All steps on the change checklist (Insulin Cartridge, Tubing, Infusion Set, etc.) should now be checked off [employer] . The pump will automatically resume insulin delivery at this point (in autonomous mode, it will continue dosing insulin as needed) [employer] . You have successfully replaced the insulin cartridge and infusion set. Double- check that there is no leakage at the cartridge or infusion site, and that the iLet?s insulin level display reflects the new cartridge (it should show a full reservoir reading). Finally, monitor your blood glucose closely over the next 1- 2 hours to ensure the new infusion site is working properly. Avoid immediately going to sleep after a change ? it?s best to stay awake to confirm there are no issues. If you get any pump alarms (such as an occlusion alert) or if your glucose is rising unexpectedly, troubleshoot by checking the connections and site: make sure the tubing isn?t kinked, the adapter is tight, and the infusion set is not dislodged. If needed, you may replace the set or use a backup insulin injection while resolving the issue [email or web address] . When in doubt, contact [employer] customer support or your healthcare provider for assistance. 20. Confirme la finalizaci?n y reanude la administraci?n de insulina. El iLet mostrar? wilber confirmaci?n de que el cambio de cartucho se lovelace completado. Todos los pasos de la lista de verificaci?n del cambio (Cartucho de Insulina, Tubo, Set de Infusi?n, etc.) ahora deber?an aparecer marcados [email or web address] . La bomba reanuda autom?ticamente la administraci?n de insulina en jeana punto (en modo aut?nomo, continuar? dosificando insulina seg?n sea necesario) [email or web address] . Lovelace reemplazado con ?xito el cartucho de insulina y el set de infusi?n. Verifique doblemente que no haya fugas en el cartucho ni en el sitio de infusi?n, y que la pantalla de nivel de insulina del iLet refleje el nuevo cartucho (deber?a mostrar el dep?sito lleno). Por ?ltimo, monitoree dsouza glucosa en douglas de cerca magan las pr?ximas 1-2 horas para asegurarse de que el nuevo sitio de infusi?n funcione correctamente. Evite irse a dormir inmediatamente despu?s de un cambio ? es mejor mantenerse despierto para confirmar que no haya problemas. Si recibe alguna alarma de la bomba (abdulkadir wilber alerta de obstrucci?n) o si dsouza glucosa sube inesperadamente, solucione el problema verificando las conexiones y el sitio: aseg?rese de que el tubo no est? doblado, que el adaptador est? juwan ajustado y que el set de infusi?n no se haya desprendido. Si es necesario, puede reemplazar el set o usar wilber inyecci?n de insulina de respaldo mientras resuelve el problema [email or web address] . En isabelle de rafat, comun?quese con el soporte al cliente de [employer] o con dsouza profesional de la carolina para obtener ayuda. By following these detailed steps, you can confidently replace your iLet insulin cartridge and infusion set safely at home. Always keep an emergency kit with spare supplies and insulin in case of an unexpected issue [email or web address] . With a fresh cartridge and infusion site, your bionic pancreas should be delivering insulin accurately, helping you maintain your glucose control. Great job on completing the change! Siguiendo estos pasos detallados, usted podr? reemplazar con confianza el cartucho de insulina y el set de infusi?n de dsouza iLet de forma connelly en casa. Tenga siempre a mano un kit de emergencia con suministros y insulina de repuesto en isabelle de alg?n problema inesperado [email or web address] . Con un cartucho y un sitio de infusi?n nuevos, dsouza p?ncreas bi?zoë deber? estar administrando insulina con precisi?n para ayudarle a mantener el control de dsouza glucosa. ?Buen trabajo al completar el cambio! Coding Level of Care Code Est Pt Level 3 (94376) Diagnoses Type 2 diabetes mellitus with diabetic nephropathy, with long-term current use of insulin E11.21; Z79.4 Diabetes mellitus complication detail: with nephropathy Diabetes mellitus complication status: with kidney complications
[2025-02-02 15:11] VITALS: BP 124/80; PULSE 87; O2SAT 96
--- OUTSIDE RECORDS SUMMARY | 2025-02-02 16:10 | XMS_ITS | Encounter Summary ---
Author Organization [employer] Address [address] [facility] 7t [place] [address] Care Team Providers Care Apprentice Painter Hand Name Role Phone Neptali Palomo DMD Unavailable [phone] Reason for Visit * Reason Comments Med Refill Encounter Details Date Type Department Care Team (Late st Contact Info) Description 12/09/2023 Refill [facility] MEDICINE [address] [place], [place] [phone] Payal Walker, ANP [address] [place], [place] [phone] Type 2 diabetes mellitus with hyperlipidemia ([facility]/HCC) ([facility]); Primary hypertension Social History [...] Description 04/20/2025 2:15 PM EST Office Visit [facility] ADULT DENTAL [address] [place] [address] Larry Hopper documented as of this encounter Visit Diagnoses Diagnosis Type 2 diabetes mellitus with hyperlipidemia (HCC) Primary hypertension Unspecified essential hypertension documented in this encounter Additional Health Concerns Assessment Noted Time PHQ-9 Depression Total Score: 0 08/05/19 2:13 PM EDT documented as of this encounter Care Teams Apprentice Painter Hand Relationship Specialty Start Date End Date Neptali Palomo DMD [address] [place] [address] Dentist 05/18/24 documented as of this encounter
--- OUTSIDE RECORDS SUMMARY | 2025-02-02 16:10 | XMS_ITS | Clinical Summary ---
Author Organization [employer] Address [address] [facility] 7t [place] [address] Care Team Providers Care Cotton Gin Yard Supervisor Name Role Phone Neptali Palomo DMD Unavailable [phone] Allergies Active Allergy Reactions Criticality Noted [...] kit 07/11/19 23 Active Continuous Blood Gluc Trigonometry Tutor (FreeStyle Agatha 2 Mckenney) deviceIndications: Type 2 diabetes mellitus with hyperlipidemia [...] Abdominal bloating 02/28/2024 Epigastric pain 02/28/2024 Stroke ([facility]) 08/17/2022 Assessment & Plan (08/17/2022 6:42 PM [...] fasting and chem -referred to neurologist at [facility] x stroke f up and to f CT ,MRI findings --unsure if actual aneurysm in CTA? 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 ----to continue care w neurologist -states is following w cardiology for valvular abnormality -from chart review hx of aortic valve calcification-pt states will schedule a f up visit w his cards at [facility] Pituitary microadenoma ([facility]) 08/17/2022 Assessment & Plan (08/17/2022 6:41 PM [...] penis 09/24/2015 Overview (04/16/2022): [facility] Elevated liver function tests 12/25/2014 Overview [...] Description 04/20/2025 2:15 PM EST Office Visit [facility] ADULT DENTAL [address] [place] [address] Larry Hopper Health Maintenance Due Date Last [...] 9:03 AM EDT) Creatinine, Urine 89.78 mg/dL [facility] Microalbumin Urine 59.0 mg/L [facility] Microalbum Creatinine Ratio Ur 65.7 ug/mg cr [facility] Comment:Albumin/Creatinine R atio Reference Ranges: Normal: < 30 ug/mg creatinine Microalbuminuria: 30 - 300 ug/mg creatinineClinical Albuminuria: > 300 ug/mg creatinine 08/19/2022 9:03 AM EDT 08/19/2022 11:06 AM EDT [facility] External Provider LAB URI NE ORDERABLES Final Result [facility] [address] [place] [phone] * Hemoglobin A1c (08/19/2022 9:03 AM EDT) Hemoglobin A1c 7.3 % [facility] Comment:Hemoglobin A1C Refer ence Range Adults: 4.8 - 6.0 % Non diabetic: < 6.0 % Goal: < 7.0 %Additional Action Suggested: > 8.0 %Note: Hemoglobin A1c results are invalid for patients with abnormal amounts of HbF. Blood transfusions may impact the HbA1c concentration in the patient sample. Estimated Average Glucose 163 mg/dL [facility] Comment:eAG = Estimated ave rage glucose which is %A1C expressed asaverage glucose, using the formula of the K2S-UhkldztUikkuxh Glucose study (ADAG), Diabetes Care, Vol.31,#8,Oct. 2007 08/19/2022 9:03 AM EDT 08/19/2022 11:12 AM EDT [facility] External Provider LAB BLO OD ORDERABLES Final Result [facility] [address] [place] [address] [phone] * Lipid Panel, Standard (08/19/2022 9:03 AM EDT) Triglycerides 91 mg/dL [facility] Comment:Desirable Triglyceri de: less than 150 mg/dLBorderline High Triglyceride 150-199 mg/dLHigh Triglyceride: 200-499 mg/dLVery High Triglyceride: greater than or equal to 5OO mg/dL Cholesterol 186 mg/dL [facility] Comment:Desirable Cholestero l: less than 200 mg/dLBorderline High Cholesterol: 200-239 mg/dLHigh Cholesterol: greater than 239 mg/dL LDL Cholesterol Calculated 129 mg/dl [facility] Comment:Desirable LDL: less than 100 mg/dLNear Optimal/Above Optimal LDL: 110- 129 mg/dLBorderline High LDL: 130-159 mg/dLHigh LDL: 160-189 mg/dLVery High LDL: greater than or equal to 190 mg/dL HDL Cholesterol 39 mg/dL [facility] Comment:Desirable HDL: great er than 40 mg/dL Note: This HDL assay may give artificially low results in patients with liver disease. 08/19/2022 9:03 AM EDT 08/19/2022 11:12 AM EDT [facility] External Provider LAB BLO OD ORDERABLES Final Result [facility] [address] [place] [address] [phone] * HEPATITIS C AB W/REFL TO [...] a test for HCV RNA (test code 44408) is suggested. For additional information please refer to http://education.[employer]/faq/GZD67t4 (This link is being provided for informational/ educational purposes only.) 07/16/2020 9:56 AM EDT Davida Webb CELLOPHANE PRESS OPERATOR HISTORICAL/NON ORDERABLE LABS Final Result Performing Organization Address City/[facility]/ZIP Co de Phone Number [facility] [address] [place] [address], * Hm Colonoscopy (05/01/2016) Colonoscopy Normal Normal Narrative Mary Kate Emmanuel - 05/01/2016 Repeat in 10 years Historical Provider MD HEALTH MAINTENANCE Final Result from Last 3 Months or Most Recently Relevant to Health Maintenance Insurance [facility] STANDARD MEDICARE DENTAL-[facility] MEDICA[employer] STAND ADULT Ari ME Ari ME Ari ME Care Teams Cotton Gin Yard Supervisor Relationship Specialty Start Date End Date Neptali Palomo DMD [address] [place] [address] Dentist 05/18/24
--- OUTSIDE RECORDS SUMMARY | 2025-02-02 16:10 | XMS_ITS | Encounter Summary ---
Author Organization [employer] [facility] Address [address] [place] [address] 7 [place] [address] Care Team Providers Care Rn Ante Partum Name Role Phone Payal Walker Primary Care Provider [phone] Neptali Palomo DMD Unavailable [phone] Encounter Details Date Type Department Care Team (Latest Contact Info) Description 02/12/2020 Abstract [facility] CONVERSIONS Dental, Provider, DDS Social History [...] Description 04/20/2025 2:15 PM EST Office Visit [facility] ADULT DENTAL [address] [place] [address] Larry Hopper documented as of this encounter Visit Diagnoses Not on filedocumented in this encounter Care Teams Rn Ante Partum Relationship Specialty Start Date End Date Payal Walker ANP [address] [place] [address] PCP - General Family Medicine 11/20/21 08/04/23 Neptali Palomo DMD [address] [place] [address] Dentist 05/18/24 documented as of this encounter
--- OUTSIDE RECORDS SUMMARY | 2025-02-02 16:10 | XMS_ITS | Encounter Summary ---
Author Organization [employer] [facility] Address [address] [place] [address] 7 [place] [address] Care Team Providers Care Metallurgy Teacher Name Role Phone Payal Walker Primary Care Provider [phone] Neptali Palomo DMD Unavailable [phone] Encounter Details Date Type Department Care Team (Latest Contact Info) Description 10/03/2018 Abstract [facility] CONVERSIONS Dental, Provider, DDS Social History [...] Description 04/20/2025 2:15 PM EST Office Visit [facility] ADULT DENTAL [address] [place] [address] Larry Hopper documented as of this encounter Visit Diagnoses Not on filedocumented in this encounter Care Teams Metallurgy Teacher Relationship Specialty Start Date End Date Payal Walker ANP [address] [place] [address] PCP - General Family Medicine 11/20/21 08/04/23 Neptali Palomo DMD [address] [place] [address] Dentist 05/18/24 documented as of this encounter
--- OUTSIDE RECORDS SUMMARY | 2025-02-02 16:10 | XMS_ITS | Encounter Summary ---
Author Organization [employer] Address [address] [facility] 7t [place] [address] Care Team Providers Care Continuous Still Operator Name Role Phone Neptali Palomo DMD Unavailable [phone] Reason for Visit * Reason Comments Med Refill Encounter Details Date Type Department Care Team (Late st Contact Info) Description 01/28/2024 Refill [facility] MEDICINE [address] [place], [place] [phone] Payal Walker, ANP [address] [place], [place] [phone] Type 2 diabetes mellitus with hyperlipidemia ([facility]/HCC) ([facility]) Social History Tobacco Use Types [...] Description 04/20/2025 2:15 PM EST Office Visit [facility] ADULT DENTAL [address] [place] [address] Larry Hopper documented as of this encounter Visit Diagnoses Diagnosis Type 2 diabetes mellitus with hyperlipidemia (HCC) documented in this encounter Additional Health Concerns Assessment Noted Time PHQ-9 Depression Total Score: 0 08/05/19 2:13 PM EDT documented as of this encounter Care Teams Continuous Still Operator Relationship Specialty Start Date End Date Neptali Palomo DMD [address] [place] [address] Dentist 05/18/24 documented as of this encounter
--- OUTSIDE RECORDS SUMMARY | 2025-02-02 16:10 | XMS_ITS | Encounter Summary ---
Author Organization [employer] Address [address] [facility] 7t [place] [address] Care Team Providers Care Travograph Operator Name Role Phone Neptali Palomo DMD Unavailable [phone] Reason for Visit * Reason Comments Med Refill Encounter Details Date Type Department Care Team (Late st Contact Info) Description 11/04/2023 Refill [facility] MEDICINE [address] [place], [place] [phone] Payal Walker, ANP [address] [place], [place] [phone] Type 2 diabetes mellitus with hyperlipidemia ([facility]/HCC) ([facility]) Social History Tobacco Use [...] [facility] ADULT DENTAL [address] [place] [address] Larry Hopper documented as of this encounter Visit Diagnoses Diagnosis Type 2 diabetes mellitus with hyperlipidemia (HCC) documented in this encounter Additional Health Concerns Assessment Noted Time PHQ-9 Depression Total Score: 0 08/05/19 2:13 PM EDT documented as of this encounter Care Teams Travograph Operator Relationship Specialty Start Date End Date Neptali Palomo DMD [address] [place] [address] Dentist 05/18/24 documented as of this encounter
--- OUTSIDE RECORDS SUMMARY | 2025-02-02 16:10 | XMS_ITS | Encounter Summary ---
Author Organization [employer] Address [address] [facility] 7t [place] [address] Care Team Providers Care Buyer Internship Name Role Phone Neptali Palomo DMD Unavailable [phone] Reason for Visit * Reason Comments Med Refill Encounter Details Date Type Department Care Team (Late st Contact Info) Description 01/28/2024 Refill [facility] MEDICINE [address] [place], [place] [phone] Payal Walker, ANP [address] [place], [place] [phone] Social History Tobacco Use Types Packs/Day Years [...] [facility] ADULT DENT[facility] [address] [place] [address] Larry Hopper documented as of this encounter Visit Diagnoses Not on filedocumented in this encounter Additional Health Concerns Assessment Noted Time PHQ-9 Depression Total Score: 0 08/05/19 2:13 PM EDT documented as of this encounter Care Teams Buyer Internship Relationship Specialty Start Date End Date Neptali Palomo DMD [address] [place] [address] Dentist 05/18/24 documented as of this encounter
--- OUTSIDE RECORDS SUMMARY | 2025-02-02 16:10 | XMS_ITS | Encounter Summary ---
Author Organization [employer] Address [address] [facility] 7t [place] [address] Care Team Providers Care Junior Buyer Name Role Phone Aaron Payal RUANO Primary Care Provider [phone] Neptali Palomo DMD Unavailable [phone] Reason for Visit * Reason Comments Med Refill Encounter Details Date Type Department Care Team (Late st Contact Info) Description 10/20/2022 Refill [facility] MEDICINE [address] [place], [place] [phone] [facility] [address] [place], [place] [phone] Social History Tobacco Use Types Packs/Day Years [...] Visit [facility] ADULT DENTAL [address] [place] [address] Larry Hopper documented as of this encounter Visit Diagnoses Not on filedocumented in this encounter Additional Health Concerns Assessment Noted Time PHQ-9 Depression Total Score: 0 08/05/19 23 2:13 PM EDT documented as of this encounter Care Teams Junior Buyer Relationship Specialty Start Date End Date Payal Walker ANP [address] [place] [address] PCP - General Family Medicine 11/20/21 08/04/23 Neptali Palomo DMD [address] [place] [address] Dentist 05/18/24 documented as of this encounter
--- OUTSIDE RECORDS SUMMARY | 2025-02-02 16:11 | XMS_ITS | Encounter Summary ---
Author Organization [employer] Address [address] [facility] 7t [place] [address] Care Team Providers Care Pillowcase Turner Name Role Phone Neptali Palomo DMD Unavailable [phone] Reason for Visit * Reason Comments Med Refill Encounter Details Date Type Department Care Team (Late st Contact Info) Description 10/22/2023 Refill [facility] MEDICINE [address] [place], [place] [phone] Payal Walker, ANP [address] [place], [place] [phone] Type 2 diabetes mellitus with hyperlipidemia ([facility]/HCC) ([facility]) Social History Tobacco Use Types [...] 2:15 PM EST Office Visit [facility] ADULT DENTAL [address] [place] [address] Larry Hopper documented as of this encounter Visit Diagnoses Diagnosis Type 2 diabetes mellitus with hyperlipidemia (HCC) documented in this encounter Additional Health Concerns Assessment Noted Time PHQ-9 Depression Total Score: 0 08/05/19 2:13 PM EDT documented as of this encounter Care Teams Pillowcase Turner Relationship Specialty Start Date End Date Neptali Palomo DMD [address] [place] [address] Dentist 05/18/24 documented as of this encounter
--- OUTSIDE RECORDS SUMMARY | 2025-02-02 16:11 | XMS_ITS | Encounter Summary ---
Author Organization [email or web address] Address [address] [facility] 7t [place] [address] Care Team Providers Care Skin Care Consultant Name Role Phone Neptali Palomo DMD Unavailable [phone] Reason for Visit * Reason Comments Med Refill Encounter Details Date Type Department Care Team (Late st Contact Info) Description 11/01/2023 Refill [facility] MEDICINE [address] [place], [place] [phone] Payal Walker, ANP [address] [place], [place] [phone] Primary hypertension Social History Tobacco Use Types [...] 2:15 PM EST Office Visit [facility] ADULT DENTAL [address] [place] [address] Larry Hopper documented as of this encounter Visit Diagnoses Diagnosis Primary hypertension Unspecified essential hypertension documented in this encounter Additional Health Concerns Assessment Noted Time PHQ-9 Depression Total Score: 0 08/05/19 2:13 PM EDT documented as of this encounter Care Teams Skin Care Consultant Relationship Specialty Start Date End Date Neptali Palomo DMD [address] [place] [address] Dentist 05/18/24 documented as of this encounter
--- OUTSIDE RECORDS SUMMARY | 2025-02-02 16:11 | XMS_ITS | Encounter Summary ---
Author Organization [employer] Address [address] [facility] 7t [place] [address] Care Team Providers Care Supervisor Taping Name Role Phone Walker Payal RUANO Primary Care Provider [phone] Neptali Palomo DMD Unavailable [phone] Encounter Details Date Type Department Care Team (Late st Contact Info) Description 02/16/2023 Abstract [facility] MEDICINE [address] [place], [place] [phone] Mary Kate Emmanuel Social History Tobacco Use [...] [facility] [address] [place] [address] Larry Hopper documented as of this encounter [...] as of this encounter Care Teams Supervisor Taping Relationship Specialty Start Date End Date Payal Walker ANP [address] [place] [address] PCP - General Family Medicine 11/20/21 08/04/23 Neptali Palomo DMD [address] [place] [address] Dentist 05/18/24 documented as of this encounter
--- OUTSIDE RECORDS SUMMARY | 2025-02-02 16:11 | XMS_ITS | Encounter Summary ---
Author Organization [employer] Address [address] [facility] 7t [place] [address] Care Team Providers Care Drafter Civil Name Role Phone Neptali Palomo DMD Unavailable [phone] Reason for Visit * Reason Comments Med Refill Encounter Details Date Type Department Care Team (Late st Contact Info) Description 04/14/2024 Refill [facility] MEDICINE [address] [place], [place] [phone] Payal Walker, ANP [address] [place], [place] [phone] Type 2 diabetes mellitus with hyperlipidemia ([facility]/HCC) ([facility]) Social History Tobacco Use [...] 04/20/2025 2:15 PM EST Office Visit [facility] ADULT DENTAL [address] [place] [address] Larry Hopper documented as of this encounter Visit Diagnoses Diagnosis Type 2 diabetes mellitus with hyperlipidemia (HCC) documented in this encounter Additional Health Concerns Assessment Noted Time PHQ-9 Depression Total Score: 0 08/05/19 2:13 PM EDT documented as of this encounter Care Teams Drafter Civil Relationship Specialty Start Date End Date Neptali Palomo DMD [address] [place] [address] Dentist 05/18/24 documented as of this encounter
--- OUTSIDE RECORDS SUMMARY | 2025-02-02 16:11 | XMS_ITS | Encounter Summary ---
Author Organization [employer] Address [address] [facility] 7t [place] [address] Care Team Providers Care Automotive Glazier Name Role Phone Walker Payal RUANO Primary Care Provider Neptali Palomo DMD Unavailable [phone] Reason for Visit * Reason Comments Med Refill Encounter Details Date Type Department Care Team ([facility] st Contact Info) Description 06/25/2023 Refill [facility] MEDICINE [address] [place], [place] [phone] Siena Greenwood MD [address] [place], [place] [phone] GERD without esophagitis Social History Tobacco Use [...] 2:15 PM EST Office Visit [facility] ADULT DENTAL [address] [place] [address] Larry Hopper documented as of this encounter Visit Diagnoses Diagnosis GERD without esophagitis Esophageal reflux documented in this encounter Additional Health Concerns Assessment Noted Time PHQ-9 Depression Total Score: 0 08/05/19 2:13 PM EDT documented as of this encounter Care Teams Automotive Glazier Relationship Specialty Start Date End Date Payal Walker ANP [address] [place] [address] PCP - General Family Medicine 11/20/21 08/04/23 Neptali Palomo DMD [address] [place] [address] Dentist 05/18/24 documented as of this encounter
== END 2025-02-02 15:33 | disposition home or self-care (01) ==
PROVIDERS: PCP Nurse Practitioner Family; Visit Provider Student in an Organized Health Care Education/Training Program
DX: E11.21 Type 2 diabetes mellitus with diabetic nephropathy (principal); Z79.4 Long term (current) use of insulin
CPT/HCPCS: 99213

== ENCOUNTER → 2025-02-02 14:40 | Outpatient (BNVA) | payer OTHER, SELFPAY | PROVIDERS: PCP Nurse Practitioner Family; Visit Provider Student in an Organized Health Care Education/Training Program | DX: E11.21 Type 2 diabetes mellitus with diabetic nephropathy (principal); Z79.4 Long term (current) use of insulin; Z96.41 Presence of insulin pump (external) (internal); T85.694A Other mechanical complication of insulin pump, initial encounter; T38.3X6A Underdosing of insulin and oral hypoglycemic [antidiabetic] drugs, initial encounter | CPT/HCPCS: 96372; 99212; J1815 ==

== ENCOUNTER 2025-02-08 12:59 | Outpatient (AMB) | payer OTHER, SELFPAY ==
--- NOTE | 2025-02-05 11:34 | MHC.AMDMED ---
Intake Intake Visit Reasons: 60 mins Podiatry Assistant Required: Yes Podiatry Assistant Language: Sausage Linker Name: [facility] change management director Accompanied by: Spouse Allergies codeine (CODEINE) Allergy (Intermediate, Verified 01/31/25 11:23) TACHYCARDIA HPI Comprehensive Diabetes Asmnt Most Recent Diabetes Results: Creatinine, (0.5-1.4) 0.86 mg/dL 12/29/24 BUN, (9-16) 21 mg/dL H 12/29/24 Sodium, (135-145) 141 mmol/L 12/29/24 Potassium, (3.3-5.1) 3.7 mmol/L 12/29/24 Chloride, (96-108) 104 mmol/L 12/29/24 Carbon Dioxide, (22-29) 29 mmol/L 12/29/24 Calcium, (8.4-10.2) 9.2 mg/dL 12/29/24 [facility] Medical History Palpitations Pancreatitis Arthritis GERD (gastroesophageal reflux disease) CVA (cerebral vascular accident) Microalbuminuric diabetic nephropathy Type II diabetes with long term acute care registered nurse use of insulin Erectile dysfunction Vitamin D deficiency Multinodular thyroid Other and unspecified hyperlipidemia Essential hypertension Aortic valve calcification Surgical History History of esophagogastroduodenoscopy (EGD) H/O colonoscopy Family History Father Stroke Brother Stroke Mother Diabetes Social History Household Members: Spouse Housing: House Alcohol intake: never Patient Tobacco Use Status: Former Tobacco user e-Cigarette/Vaping Use: Never Used service: No Current occupational status: disabled Cognitive needs: No Hearing needs: No Vision needs: Yes Assessment & Plan Assessment & Plan (1) Type 2 diabetes mellitus with unspecified complications: Code(s): E11.8 - Type 2 diabetes mellitus with unspecified complications Plan: Patient presents for pump training for iLet pump and Agatha 3+ CGM training today. [employer] User Name: [email or web address] [email or web address] The following topics were reviewed today: -Pump therapy basic concepts: Basal/bolus -For most effective glucose control bolus prior to meals - how to prepare pump for cartridge change iLet Alerts: ??? High Alert: 300 mg/dl ??? Low Alert: 75 mg/dl Reviewed with patient how to rewind insulin pump in preparation for inserting new cartridge. Patient did not bring insulin to today's visit to complete cartridge change After demonstrating to patient how to rewind insulin pump, instructed patient instructed to fill cartridge with 180 units, of rapid acting insulin. Insert cartridge into rebound insulin pump, place cartridge connector on top of cartridge and twist to flat side of connector points to the same direction as to home screen. Attached insulin pump tubing and fill with insulin, until you see a drop of insulin the end of steel cannula. Insert infusion set. Patient stated he felt comfortable continuing cartridge change at home Demonstrated to patient how to pause pump when he is taking it off to shower Patient has follow-up appointment on February 08 Troubleshooting after starting new pod or inserting new insulin set: Occlusion, adhesive tape sensitivity, redness Check BG 2 hours after site change Patient understands the basic concepts of pump therapy, how to give insulin for meals and snacks, how to troubleshoot for hyper and hypoglycemia. Patient will follow up with [facility] as instructed Reinforced the importance of patient contacting IT at [employer] to support in any technical issues related to insulin pump Portions of this note were created using voice recognition software, please excuse any words or phrases that may have been misinterpreted. Coding Level of Care Code Est Pt Level 1 (28874) Diagnoses Type 2 diabetes mellitus with unspecified complications E11.8
--- OUTSIDE RECORDS SUMMARY | 2025-02-08 16:19 | XMS_ITS | Encounter Summary ---
Author Organization [employer] Address [address] [facility] 7t [place] [address] Care Team Providers Care Chief Of Safety And Protection Name Role Phone Walker Payal RUANO Primary Care Provider [phone] Neptali Palomo DMD Unavailable [phone] Reason for Visit * Reason Comments Med Refill Encounter Details Date Type Department Care Team ([facility] st Contact Info) Description 06/25/2023 Refill [facility] MEDICINE [address] [place], [place] [phone] Siena Greenwood MD [address] [place], [place] [phone] GERD without esophagitis Social History Tobacco Use [facility] [address] [place] [address] Larry Hopper documented as of this encounter Visit Diagnoses Diagnosis GERD without esophagitis Esophageal reflux documented in this encounter Additional Health Concerns Assessment Noted Time PHQ-9 Depression Total Score: 0 08/05/19 2:13 PM EDT documented as of this encounter Care Teams Chief Of Safety And Protection Relationship Specialty Start Date End Date Payal Walker ANP [address] [place] [address] PCP - General Family Medicine 11/20/21 08/04/23 Neptali Palomo DMD [address] [place] [address] Dentist 05/18/24 documented as of this encounter
--- OUTSIDE RECORDS SUMMARY | 2025-02-08 16:19 | XMS_ITS | Clinical Summary ---
Author Organization [employer] Address 75 [facility] 7t [place] [address] Care Team Providers Care Waste Collection Driver Name Role Phone Neptali Palomo DMD Unavailable [phone] Allergies Active Allergy Reactions Criticality Noted [...] unspecified whether long goods drier insulin use 1 each before breakfast, before lunch, and before evening meal. 1 kit 07/11/19 23 Active Continuous Blood Gluc Route Returner (FreeStyle Agatha 2 Phillips) deviceIndications: Type 2 diabetes mellitus with hyperlipidemia [...] Abdominal bloating 02/28/2024 Epigastric pain 02/28/2024 Stroke ([facility]) 08/17/2022 Assessment & Plan (08/17/2022 6:42 [...] fasting and chem -referred to neurologist at [place] x stroke f up and to f CT ,MRI findings --unsure if actual aneurysm in CTA? 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 ----to continue care w neurologist -states is following w cardiology for valvular abnormality -from chart review hx of aortic valve calcification-pt states will schedule a f up visit w his cards at [facility] Pituitary microadenoma ([facility]) 08/17/2022 Assessment & Plan (08/17/2022 6:41 [...] penis 09/24/2015 Overview (04/16/2022): [facility] Elevated liver function tests 12/25/2014 Overview [...] 04/20/2025 2:15 PM EST Office Visit [facility] ADULT DENTAL [address] [place] [address] Larry Hopper Health Maintenance Due Date Last Done Comments CT Colonography 1961 FIT DNA/Cologuard 1961 FIT 1961 FOBT 1961 HIV Screening 1961 Sigmoidoscopy 1961 Disability Screening 1961 Diabetes: Foot Exam 09/09/1971 Eye Exam 09/09/1971 Alcohol/Substance Use Screening 1973 Pneumococcal Vaccine: 50+ Years (1 of 2 - PCV) 1980 RSV Patients and Patients Aged 60 years or older (1 - Risk 50-74 years 1-dose series) 09/09/2011 Zoster Vaccines (1 of 2) 09/09/2011 Hepatitis B Vaccines (3 of 3 - [...] 9:03 AM EDT) Creatinine, Urine 89.78 mg/dL [facility] Microalbumin Urine 59.0 mg/L [facility] Microalbum Creatinine Ratio Ur 65.7 ug/mg cr [facility] Comment:Albumin/Creatinine R atio Reference Ranges: Normal: < 30 ug/mg creatinine Microalbuminuria: 30 - 300 ug/mg creatinineClinical Albuminuria: > 300 ug/mg creatinine 08/19/2022 9:03 AM EDT 08/19/2022 11:06 AM EDT us [facility] External Provider LAB URI NE ORDERABLES Final Result [facility] [address] [place] [phone] * Hemoglobin A1c (08/19/2022 9:03 AM EDT) Hemoglobin A1c 7.3 % [facility] Comment:Hemoglobin A1C Refer ence Range Adults: 4.8 - 6.0 % Non diabetic: < 6.0 % Goal: < 7.0 %Additional Action Suggested: > 8.0 %Note: Hemoglobin A1c results are invalid for patients with abnormal amounts of HbF. Blood transfusions may impact the HbA1c concentration in the patient sample. Estimated Average Glucose 163 mg/dL [facility] Comment:eAG = Estimated ave rage glucose which is %A1C expressed asaverage glucose, using the formula of the V0X-HzbknjwLdmzktl Glucose study (ADAG), Diabetes Care, Vol.31,#8,Oct. 2007 08/19/2022 9:03 AM EDT 08/19/2022 11:12 AM EDT us [facility] [place] External Provider LAB BLO OD ORDERABLES Final Result [facility] [address] [place] [phone] * Lipid Panel, Standard (08/19/2022 9:03 AM EDT) Triglycerides 91 mg/dL [facility] Comment:Desirable Triglyceri de: less than 150 mg/dLBorderline High Triglyceride 150-199 mg/dLHigh Triglyceride: 200-499 mg/dLVery High Triglyceride: greater than or equal to 5OO mg/dL Cholesterol 186 mg/dL [facility] Comment:Desirable Cholestero l: less than 200 mg/dLBorderline High Cholesterol: 200-239 mg/dLHigh Cholesterol: greater than 239 mg/dL LDL Cholesterol Calculated 129 mg/dl [facility] Comment:Desirable LDL: less than 100 mg/dLNear Optimal/Above Optimal LDL: 110- 129 mg/dLBorderline High LDL: 130-159 mg/dLHigh LDL: 160-189 mg/dLVery High LDL: greater than or equal to 190 mg/dL HDL Cholesterol 39 mg/dL [facility] Comment:Desirable HDL: great er than 40 mg/dL Note: This HDL assay may give artificially low results in patients with liver disease. 08/19/2022 9:03 AM EDT 08/19/2022 11:12 AM EDT [facility] External Provider LAB BLO OD ORDERABLES Final Result [facility] [address] [place] [address] [phone] * HEPATITIS C AB W/REFL TO [...] a test for HCV RNA (test code 31005) is suggested. For additional information please refer to http://education.GoChongo/faq/MML05x5 (This link is being provided for informational/ educational purposes only.) 07/16/2020 9:56 AM EDT Davida Webb SUPER[employer]OR [employer] [facility] HISTORICAL/NON ORDERABLE LABS Final Result Performing Organization Address City/[facility] Co de Phone Number [facility] [address] [place] [address], * Hm Colonoscopy (05/01/2016) Colonoscopy Normal Normal Narrative Mary Kate Emmanuel - 05/01/2016 Repeat in 10 years Historical Provider MD HEALTH MAINTENANCE Final Result from Last 3 Months or Most Recently Relevant to Health Maintenance Insurance [facility] STANDARD MEDICARE DENTAL-[facility] MEDICAID [facility] ADULT Ari ID Ari ID Ari ID Care Teams Waste Collection Driver Relationship Specialty Start Date End Date Neptali Palomo DMD [address] [place] [address] Dentist 05/18/24
--- OUTSIDE RECORDS SUMMARY | 2025-02-08 16:19 | XMS_ITS | Encounter Summary ---
Author Organization [employer] Address [address] [facility] 7t [place] [address] Care Team Providers Care Top Precipitator Operator Name Role Phone Neptali Palomo DMD Unavailable [phone] Reason for Visit * Reason Comments Med Refill Encounter Details Date Type Department Care Team (Late st Contact Info) Description 04/14/2024 Refill [facility] MEDICINE [address] [place], [place] [phone] Payal Walker, ANP [address] [place], [place] [phone] Type 2 diabetes mellitus with hyperlipidemia ([facility]/HCC) ([facility]) Social History Tobacco Use Types [...] Description 04/20/2025 2:15 PM EST Office Visit [facility] ADULT DENTAL [address] [place] [address] Larry Hopper documented as of this encounter Visit Diagnoses Diagnosis Type 2 diabetes mellitus with hyperlipidemia (HCC) documented in this encounter Additional Health Concerns Assessment Noted Time PHQ-9 Depression Total Score: 0 08/05/19 2:13 PM EDT documented as of this encounter Care Teams Top Precipitator Operator Relationship Specialty Start Date End Date Neptali Palomo DMD [address] [place] [address] Dentist 05/18/24 documented as of this encounter
--- OUTSIDE RECORDS SUMMARY | 2025-02-08 16:19 | XMS_ITS | Encounter Summary ---
Author Organization [employer] Address 75 [facility] 7t [place] [address] Care Team Providers Care Wood Tile Installer Name Role Phone Neptali Palomo DMD Unavailable Reason for Visit * Reason Comments Med Refill Encounter Details Date Type Department Care Team (Late st Contact Info) Description 01/28/2024 Refill [facility] MEDICINE [address] [place], [place] [phone] Payal Walker, ANP [address] [place], [place] [phone] Type 2 diabetes mellitus with hyperlipidemia ([facility]/H[facility]) ([facility]) Social History Tobacco Use [...] [facility] [address] [place] [address] Larry Hopper documented as of this encounter Visit Diagnoses Diagnosis Type 2 diabetes mellitus with hyperlipidemia (HCC) documented in this encounter Additional Health Concerns Assessment Noted Time PHQ-9 Depression Total Score: 0 08/05/19 2:13 PM EDT documented as of this encounter Care Teams Wood Tile Installer Relationship Specialty Start Date End Date Neptali Palomo DMD [address] [place] [address] Dentist 05/18/24 documented as of this encounter
--- OUTSIDE RECORDS SUMMARY | 2025-02-08 16:19 | XMS_ITS | Encounter Summary ---
Author Organization [employer] Address 75 [facility] 7t [place] [address] Care Team Providers Care Operations Lead Name Role Phone Neptali Palomo DMD Unavailable [phone] Reason for Visit * Reason Comments Med Refill Encounter Details Date Type Department Care Team (Late st Contact Info) Description 11/04/[address] [facility] MEDICINE [address] [place], [place] [phone] Payal Walker, ANP [address] [place], [place] [phone] Type 2 diabetes mellitus with hyperlipidemia ([facility]/HCC) ([facility]) Social History Tobacco [...] Description 04/20/2025 2:15 PM EST Office Visit [facility] ADULT DENTAL [address] [place] [address] Larry Hopper documented as of this encounter Visit Diagnoses Diagnosis Type 2 diabetes mellitus with hyperlipidemia (HCC) documented in this encounter Additional Health Concerns Assessment Noted Time PHQ-9 Depression Total Score: 0 08/05/19 2:13 PM EDT documented as of this encounter Care Teams Operations Lead Relationship Specialty Start Date End Date Neptali Palomo DMD [address] [place] [address] Dentist 05/18/24 documented as of this encounter
--- OUTSIDE RECORDS SUMMARY | 2025-02-08 16:19 | XMS_ITS | Encounter Summary ---
Author Organization [employer] Address [address] [facility] 7t [place] [address] Care Team Providers Care Job Printer Name Role Phone Neptali Palomo DMD Unavailable [phone] Reason for Visit * Reason Comments Med Refill Encounter Details Date Type Department Care Team (Late st Contact Info) Description 10/22/2023 Refill [facility] MEDICINE [address] [place], [place] [phone] Payal Walker, ANP [address] [place], [place] [phone] Type 2 diabetes mellitus with hyperlipidemia ([facility]/HCC) ([facility]) Social History Tobacco Use Types Packs/Day Years [...] 04/20/2025 2:15 PM EST Office Visit [facility] ADULT DENTAL [address] [place] [address] Larry Hopper documented as of this encounter Visit Diagnoses Diagnosis Type 2 diabetes mellitus with hyperlipidemia (HCC) documented in this encounter Additional Health Concerns Assessment Noted Time PHQ-9 Depression Total Score: 0 08/05/19 2:13 PM EDT documented as of this encounter Care Teams Job Printer Relationship Specialty Start Date End Date Neptali Palomo DMD [address] [place] [address] Dentist 05/18/24 documented as of this encounter
--- OUTSIDE RECORDS SUMMARY | 2025-02-08 16:19 | XMS_ITS | Encounter Summary ---
Author Organization [employer] Address [address] [facility] 7t [place] [address] Care Team Providers Care Manager Paid Name Role Phone Neptali Palomo DMD Unavailable [phone] Reason for Visit * Reason Comments Med Refill Encounter Details Date Type Department Care Team (Late st Contact Info) Description 11/01/2023 Refill [facility] MEDICINE [address] [place], [place] [phone] Payal Walker, ANP [address] [place], [place] [phone] Primary hypertension Social History Tobacco Use Types [...] PM EST Office Visit [facility] ADULT DENTAL [address] [place] [address] Larry Hopper documented as of this encounter Visit Diagnoses Diagnosis Primary hypertension Unspecified essential hypertension documented in this encounter Additional Health Concerns Assessment Noted Time PHQ-9 Depression Total Score: 0 08/05/19 2:13 PM EDT documented as of this encounter Care Teams Manager Paid Relationship Specialty Start Date End Date Neptali Palomo DMD [address] [place] [address] Dentist 05/18/24 documented as of this encounter
--- OUTSIDE RECORDS SUMMARY | 2025-02-08 16:19 | XMS_ITS | Encounter Summary ---
Author Organization [employer] [facility] Address [address] [place] [address] 7 [place] [address] Care Team Providers Care Health Technician Name Role Phone Payal Walker Primary Care Provider [phone] Neptali Palomo DMD Unavailable [phone] Encounter Details Date Type Department Care Team (Latest Contact Info) Description 10/03/2018 Abstract [facility] CONVERSIONS Dental, Provider, DDS Social History [...] Description 04/20/2025 2:15 PM EST Office Visit [facility] ADULT DENTAL [address] [place] [address] Larry Hopper documented as of this encounter Visit Diagnoses Not on filedocumented in this encounter Care Teams Health Technician Relationship Specialty Start Date End Date Payal Walker ANP [address] [place] [address] PCP - General Family Medicine 11/20/21 08/04/23 Neptali Palomo DMD [address] [place] [address] Dentist 05/18/24 documented as of this encounter
--- OUTSIDE RECORDS SUMMARY | 2025-02-08 16:19 | XMS_ITS | Encounter Summary ---
Author Organization [employer] Address 75 [facility] 7t [place] [address] Care Team Providers Care Cnc Machinist Name Role Phone Walker Payal RUANO Primary Care Provider [phone] Neptali Palomo DMD Unavailable [phone] Encounter Details Date Type Department Care Team (Late st Contact Info) Description 02/16/2023 Abstract [facility] MEDICINE [address] [place], [place] [phone] Mary Kate Emmanuel Social History Tobacco Use [...] Description 04/20/2025 2:15 PM EST Office Visit [facility] ADULT DENTAL [address] [place] [address] Larry Hopper documented as of this encounter [...] documented as of this encounter Care Teams Cnc Machinist Relationship Specialty Start Date End Date Payal Walker ANP [address] [place] [address] PCP - General Family Medicine 11/20/21 08/04/23 Neptali Palomo DMD [address] [place] [address] Dentist 05/18/24 documented as of this encounter
--- OUTSIDE RECORDS SUMMARY | 2025-02-08 16:19 | XMS_ITS | Encounter Summary ---
Author Organization [employer] [facility] Address [address] [place] [address] 7t [place] [address] Care Team Providers Care Freight Handler Name Role Phone Payal Walker Primary Care Provider [phone] Neptali Palomo DMD Unavailable [phone] Encounter Details Date Type Department Care Team (Latest Contact Info) Description 02/12/2020 Abstract [facility] CON[facility] Dental, Provider, DDS Social History [...] Description 04/20/2025 2:15 PM EST Office Visit [facility] ADULT DENTAL [address] [place] [address] Larry Hopper documented as of this encounter Visit Diagnoses Not on filedocumented in this encounter Care Teams Freight Handler Relationship Specialty Start Date End Date Payal Walker ANP [address] [place] [address] PCP - General Family Medicine 11/20/21 08/04/23 Neptali Palomo DMD [address] [place] [address] Dentist 05/18/24 documented as of this encounter
--- OUTSIDE RECORDS SUMMARY | 2025-02-08 16:19 | XMS_ITS | Encounter Summary ---
Author Organization [employer] Address [address] [facility] 7t [place] [address] Care Team Providers Care Lead Technician Name Role Phone Aaron Payal RUANO Primary Care Provider [phone] Neptali Palomo DMD Unavailable [phone] Reason for Visit * Reason Comments Med Refill Encounter Details Date Type Department Care Team (Late st Contact Info) Description 10/20/[address] [facility] MEDICINE [address] [place], [place] [phone] [facility] [address] [place], [place] [phone] Social History Tobacco Use Types Packs/Day Years [...] [facility] ADULT DENTAL [address] [place] [address] Larry Hopper documented as of this encounter Visit Diagnoses Not on filedocumented in this encounter Additional Health Concerns Assessment Noted Time PHQ-9 Depression Total Score: 0 08/05/19 23 2:13 PM EDT documented as of this encounter Care Teams Lead Technician Relationship Specialty Start Date End Date Payal Walker ANP [address] [place] [address] PCP - General Family Medicine 11/20/21 08/04/23 Neptali Palomo DMD [address] [place] [address] Dentist 05/18/24 documented as of this encounter
--- OUTSIDE RECORDS SUMMARY | 2025-02-08 16:19 | XMS_ITS | Encounter Summary ---
Author Organization [employer] Address 75 [facility] 7t [place] [address] Care Team Providers Care Golf Club Assembler Name Role Phone Neptali Palomo DMD Unavailable [phone] Reason for Visit * Reason Comments Med Refill Encounter Details Date Type Department Care Team (Late st Contact Info) Description 01/28/2024 Refill [facility] MEDICINE [address] [place], [place] [phone] Payal Walker, ANP [address] [place], [place] [phone] Social History Tobacco Use Types Packs/Day Years [...] [facility] ADULT DENTAL [address] [place] [address] Larry Hopper documented as of this encounter Visit Diagnoses Not on filedocumented in this encounter Additional Health Concerns Assessment Noted Time PHQ-9 Depression Total Score: 0 08/05/19 2:13 PM EDT documented as of this encounter Care Teams Golf Club Assembler Relationship Specialty Start Date End Date Neptali Palomo DMD [address] [place] [address] Dentist 05/18/24 documented as of this encounter
--- OUTSIDE RECORDS SUMMARY | 2025-02-08 16:19 | XMS_ITS | Encounter Summary ---
Author Organization [employer] Address 75 [facility] 7t [place] [address] Care Team Providers Care Engineering Laboratory Technician Name Role Phone Neptali Palomo DMD Unavailable [phone] Reason for Visit * Reason Comments Med Refill Encounter Details Date Type Department Care Team (Late st Contact Info) Description 12/09/2023 Refill [facility] MEDICINE 230 [place], [place] [phone] Payal Walker, ANP 230 [place], [place] [phone] Type 2 diabetes mellitus with hyperlipidemia ([facility]/HCC) ([facility]); Primary hypertension Social History Tobacco Use Types [...] EST Office Visit [facility] ADULT DENTAL [address] [place] [address] Larry Hopper documented as of this encounter Visit Diagnoses Diagnosis Type 2 diabetes mellitus with hyperlipidemia (HCC) Primary hypertension Unspecified essential hypertension documented in this encounter Additional Health Concerns Assessment Noted Time PHQ-9 Depression Total Score: 0 08/05/19 2:13 PM EDT documented as of this encounter Care Teams Engineering Laboratory Technician Relationship Specialty Start Date End Date Neptali Palomo DMD [address] [place] [address] Dentist 05/18/24 documented as of this encounter
== END 2025-02-08 13:28 ==
LOC: HO.ENCR 13:00
PROVIDERS: PCP Nurse Practitioner Family; Visit Provider Registered Nurse Diabetes Educator
DX: E11.8 Type 2 diabetes mellitus with unspecified complications (principal)

== ENCOUNTER → 2025-02-08 13:30 | Outpatient (BNVA) | payer OTHER, SELFPAY | PROVIDERS: PCP Nurse Practitioner Family; Visit Provider Registered Nurse Diabetes Educator | DX: E11.9 Type 2 diabetes mellitus without complications (principal) | CPT/HCPCS: 99211 ==

== ENCOUNTER 2025-02-14 09:55 | Outpatient (REF) | payer OTHER, SELFPAY ==
[2025-02-14 13:18] LABS: MANUAL DIFF FLAG NO
[2025-02-14 13:30] LABS: Hematocrit 49.1 % (42.0-52.0); Hemoglobin 16.9 g/dl (14.0-18.0); Imm Gran Abs Auto 0.01 X10*3/uL (0.00-0.03); Imm Gran Pct Auto 0.2 % (0.0-0.4); Lymphocytes Absolute Auto 1.8 X10*3/uL (1.2-4.9); Mean Corpuscular HGB Conc 34.4 g/dl (31.0-36.0); Mean Corpuscular Hemoglobin 28.6 pg (27.0-33.0); Mean Corpuscular Volume 83.1 fL (80.0-98.0); NRBC Abs Auto 0.000 X10*3/uL (0.0-0.012); NRBC Pct Auto 0.0 /100WBC (0.0-0.2); Platelet Count 174 X10*3/uL (160-400); Red Blood Count 5.91 X10*6/uL (4.60-5.80); White Blood Count 5.1 X10*3/uL (4.8-10.8)
[2025-02-14 15:40] LABS: Alanine Aminotransferase 54 U/L (0-40); Albumin Level 4.3 g/dL (3.5-5.0); Alkaline Phosphatase 104 U/L (39-117); Anion Gap 12 (12-20); Aspartate Amino Transferase 34 U/L (5-37); Blood Urea Nitrogen 27 mg/dL (9-16); Calcium 9.0 mg/dL (8.4-10.2); Carbon Dioxide 28 mmol/L (22-29); Chloride 104 mmol/L (96-108); Cholesterol 174 mg/dL (<200); Estimated Glomerular Filt Rate > 60; HDL Cholesterol 41 mg/dL (>40); Potassium 3.8 mmol/L (3.3-5.1); Sodium 140 mmol/L (135-145); Total Protein 7.4 g/dL (6.5-8.0); Triglycerides 95 mg/dL (<150)
--- OUTSIDE RECORDS SUMMARY | 2025-02-14 18:32 | XMS_ITS | Encounter Summary ---
Author Organization [employer] Address 75 [facility] 7t [place] [address] Care Team Providers Care Financial Examiner Name Role Phone Neptali Palomo DMD Unavailable [phone] Reason for Visit * Reason Comments Med Refill Encounter Details Date Type Department Care Team (Late st Contact Info) Description 01/28/2024 Refill [facility] MEDICINE 230 [place], [place] [phone] Payal Walker, ANP 230 [place], [place] [phone] Type 2 diabetes mellitus with hyperlipidemia ([facility]/HCC) ([facility]) Social History Tobacco [...] 2:15 PM EST Office Visit [facility] ADULT DENTAL [address] [place] [address] Larry Hopper documented as of this encounter Visit Diagnoses Diagnosis Type 2 diabetes mellitus with hyperlipidemia (HCC) documented in this encounter Additional Health Concerns Assessment Noted Time PHQ-9 Depression Total Score: 0 08/05/19 2:13 PM EDT documented as of this encounter Care Teams Financial Examiner Relationship Specialty Start Date End Date Neptali Palomo DMD 505 [place] [address] Dentist 05/18/24 documented as of this encounter
--- OUTSIDE RECORDS SUMMARY | 2025-02-14 18:32 | XMS_ITS | Encounter Summary ---
Author Organization [employer] Address 75 [facility] 7t [place] [address] Care Team Providers Care Director Appointment Name Role Phone Neptali Palomo DMD Unavailable [phone] Reason for Visit * Reason Comments Med Refill Encounter Details Date Type Department Care Team (Late st Contact Info) Description 11/04/2023 Refill [facility] MED[facility] 230 [place], [place] [phone] Payal Walker, ANP 230 [place], [place] [phone] Type 2 diabetes mellitus with hyperlipidemia ([facility]HCC) ([facility]) Social History Tobacco Use Types [...] Description 04/20/2025 2:15 PM EST Office Visit [facility]ULT [facility] [address] [place] [address] Larry Hopper documented as of this encounter Visit Diagnoses Diagnosis Type 2 diabetes mellitus with hyperlipidemia (HCC) documented in this encounter Additional Health Concerns Assessment Noted Time PHQ-9 Depression Total Score: 0 08/05/19 2:13 PM EDT documented as of this encounter Care Teams Director Appointment Relationship Specialty Start Date End Date Neptali Palomo DMD 505 [place] [address] Dentist 05/18/24 documented as of this encounter
--- OUTSIDE RECORDS SUMMARY | 2025-02-14 18:32 | XMS_ITS | Encounter Summary ---
Author Organization [employer] Address 75 [facility] 7t [place] [address] Care Team Providers Care Retail Personal Banker Name Role Phone Neptali Palomo DMD Unavailable [phone] Reason for Visit * Reason Comments Med Refill Encounter Details Date Type Department Care Team (Late st Contact Info) Description 01/28/2024 Refill [facility] MEDICINE 230 [place], [place] [phone] Payal Walker, ANP 230 [place], [place] [phone] Social History Tobacco Use Types Packs/Day Years [...] 2:15 PM EST Office Visit [facility] ADULT DENTAL 505 [place] [address] Larry Hopper documented as of this encounter Visit Diagnoses Not on filedocumented in this encounter Additional Health Concerns Assessment Noted Time PHQ-9 Depression Total Score: 0 08/05/19 2:13 PM EDT documented as of this encounter Care Teams Retail Personal Banker Relationship Specialty Start Date End Date Neptali Palomo DMD 505 [place] [address] Dentist 05/18/24 documented as of this encounter
--- OUTSIDE RECORDS SUMMARY | 2025-02-14 18:32 | XMS_ITS | Encounter Summary ---
Author Organization [employer] Address 75 [facility] 7t [place] [address] Care Team Providers Care Perch Mender Name Role Phone Neptali Palomo DMD Unavailable [phone] Reason for Visit * Reason Comments Med Refill Encounter Details Date Type Department Care Team (Late st Contact Info) Description 12/09/2023 Refill [facility] MEDICINE 230 [place], [place] [phone] Payal Walker, ANP 230 [place], [place] [phone] Type 2 diabetes mellitus with hyperlipidemia ([facility]/HCC) ([facility]); Primary hypertension Social History Tobacco [...] Description 04/20/2025 2:15 PM EST Office Visit [facility] ADULT DENTAL 505 [place] [address] Larry Hopper documented as of this encounter Visit Diagnoses Diagnosis Type 2 diabetes mellitus with hyperlipidemia (HCC) Primary hypertension Unspecified essential hypertension documented in this encounter Additional Health Concerns Assessment Noted Time PHQ-9 Depression Total Score: 0 08/05/19 2:13 PM EDT documented as of this encounter Care Teams Perch Mender Relationship Specialty Start Date End Date Neptali Palomo DMD [address] [place] [address] Dentist 05/18/24 documented as of this encounter
--- OUTSIDE RECORDS SUMMARY | 2025-02-14 18:32 | XMS_ITS | Encounter Summary ---
Author Organization [employer] Address 75 [facility] 7t [place] [address] Care Team Providers Care Manager People Name Role Phone Aaron Payal RUANO Primary Care Provider Neptali Palomo DMD Unavailable [phone] Reason for Visit * Reason Comments Med Refill Encounter Details Date Type Department Care Team (Late st Contact Info) Description 10/20/2022 Refill [facility] MEDICINE 230 [place], [place] [phone] [facility] 230 [place], [place] [phone] Social History Tobacco Use Types Packs/Day Years [...] [facility] ADULT DENTAL [address] [place] [address] Larry Hopper documented as of this encounter Visit Diagnoses Not on filedocumented in this encounter Additional Health Concerns Assessment Noted Time PHQ-9 Depression Total Score: 0 08/05/19 23 2:13 PM EDT documented as of this encounter Care Teams Manager People Relationship Specialty Start Date End Date Payal Walker ANP 230 [place] [address] PCP - General Family Medicine 11/20/21 08/04/23 Neptali Palomo DMD [address] [place] [address] Dentist 05/18/24 documented as of this encounter
--- OUTSIDE RECORDS SUMMARY | 2025-02-14 18:33 | XMS_ITS | Encounter Summary ---
Author Organization [employer] Address 75 [facility] 7t [place] [address] Care Team Providers Care Inspector Balance Truing Name Role Phone Neptali Palomo DMD Unavailable [phone] Reason for Visit * Reason Comments Med Refill Encounter Details Date Type Department Care Team (Late st Contact Info) Description 04/14/2024 Refill [facility] MEDICINE 230 [place], [place] [phone] Payal Walker, ANP 230 [place], [place] [phone] Type 2 diabetes mellitus with hyperlipidemia ([facility]/HCC) ([facility]) Social History Tobacco Use Types [...] 04/20/2025 2:15 PM EST Office Visit [facility] ADULT DENTAL [address] [place] [address] Larry Hopper documented as of this encounter Visit Diagnoses Diagnosis Type 2 diabetes mellitus with hyperlipidemia (HCC) documented in this encounter Additional Health Concerns Assessment Noted Time PHQ-9 Depression Total Score: 0 08/05/19 2:13 PM EDT documented as of this encounter Care Teams Inspector Balance Truing Relationship Specialty Start Date End Date Neptali Palomo DMD 505 [place] [address] Dentist 05/18/24 documented as of this encounter
--- OUTSIDE RECORDS SUMMARY | 2025-02-14 18:33 | XMS_ITS | Encounter Summary ---
Author Organization [employer] [facility] Address [address] [place] [address] 7 [place] [address] Care Team Providers Care Education Associate Name Role Phone Payal Walker Primary Care Provider [phone] Neptali Palomo DMD Unavailable [phone] Encounter Details Date Type Department Care Team (Latest Contact Info) Description 02/12/2020 Abstract [facility] CONVERSIONS Dental, Provider, DDS Social History Tobacco [...] Description 04/20/2025 2:15 PM EST Office Visit [facility]C ADULT DENTAL [address] [place] [address] Larry Hopper documented as of this encounter Visit Diagnoses Not on filedocumented in this encounter Care Teams Education Associate Relationship Specialty Start Date End Date Payal Walker ANP 230 [place] [address] PCP - General Family Medicine 11/20/21 08/04/23 Neptali Palomo DMD 505 [place] [address] Dentist 05/18/24 documented as of this encounter
--- OUTSIDE RECORDS SUMMARY | 2025-02-14 18:33 | XMS_ITS | Encounter Summary ---
Author Organization [employer] Address 75 [facility] 7t [place] [address] Care Team Providers Care Application Lead Name Role Phone Walker Payal RUANO Primary Care Provider [phone] Neptali Palomo DMD Unavailable [phone] Encounter Details Date Type Department Care Team (Late st Contact Info) Description 02/16/2023 Abstract [facility] MEDICINE [address] [place], [place] [phone] Mary Kate Emmanuel Social History Tobacco Use [...] [facility] ADULT DENTAL [address] [place] [address] Larry Hopper documented as of this encounter [...] documented as of this encounter Care Teams Application Lead Relationship Specialty Start Date End Date Payal Walker ANP 230 [place] [address] PCP - General Family Medicine 11/20/21 08/04/23 Neptali Palomo DMD 505 [place] [address] Dentist 05/18/24 documented as of this encounter
--- OUTSIDE RECORDS SUMMARY | 2025-02-14 18:33 | XMS_ITS | Encounter Summary ---
Author Organization [employer] [facility] Address [address] [place] [address] 7 [place] [address] Care Team Providers Care Nutritionist Name Role Phone Payal Walker Primary Care Provider [phone] Neptali Palomo DMD Unavailable [phone] Encounter Details Date Type Department Care Team (Latest Contact Info) Description 10/03/2018 Abstract [facility] CONVERSIONS Dental, Provider, DDS Social [...] Description 04/20/2025 2:15 PM EST Office Visit [facility] CHC ADULT DENTAL [address] [place] [address] Larry Hopper documented as of this encounter Visit Diagnoses Not on filedocumented in this encounter Care Teams Nutritionist Relationship Specialty Start Date End Date Payal Walker ANP 230 [place] [address] PCP - General Family Medicine 11/20/21 08/04/23 Neptali Palomo DMD 505 [place] [address] Dentist 05/18/24 documented as of this encounter
--- OUTSIDE RECORDS SUMMARY | 2025-02-14 18:33 | XMS_ITS | Clinical Summary ---
Author Organization [employer] Address 75 [facility] 7t [place] [address] Care Team Providers Care Underwriting Operations Manager Name Role Phone Neptali Palomo DMD Unavailable [phone] Allergies Active Allergy Reactions Criticality Noted [...] 2 diabetes mellitus without complication, unspecified whether tank terminal gauger insulin use 1 each before breakfast, before lunch, and before evening meal. 1 kit 07/11/19 23 Active Continuous Blood Gluc Telecommunications Repairer ([employer] Agatha 2 [place]) deviceIndications: Type 2 diabetes mellitus with hyperlipidemia [...] bloating 02/28/2024 Epigastric pain 02/28/2024 Stroke ([facility]) 08/17/2022 Assessment & Plan (08/17/2022 6:42 PM [...] fasting and chem -referred to neurologist at [place] x stroke f up and to f [...] at [facility] Pituitary microadenoma ([facility]) 08/17/2022 Assessment & Plan (08/17/2022 6:41 PM [...] Visit [facility] ADULT DENTAL [address] [place] [address] Larry Hopper Health Maintenance Due Date Last [...] this topic Meningococcal Vaccine Aged Out No amrlene leaine eligible based on patient's age to complete [...] AM EDT) Creatinine, Urine 89.78 mg/dL [facility] Microalbumin Urine 59.0 mg/L [facility] Microalbum Creatinine Ratio Ur 65.7 ug/mg cr [facility] Comment:Albumin/Creatinine R atio Reference Ranges: Normal: < 30 ug/mg creatinine Microalbuminuria: 30 - 300 ug/mg creatinineClinical Albuminuria: > 300 ug/mg creatinine 08/19/2022 9:03 AM EDT 08/19/2022 11:06 AM EDT us [facility] External Provider LAB URI NE ORDERABLES Final Result [facility] [address] [place] [phone] * Hemoglobin A1c (08/19/2022 9:03 AM EDT) Hemoglobin A1c 7.3 % [facility] Comment:Hemoglobin A1C Refer ence Range Adults: 4.8 - 6.0 % Non diabetic: < 6.0 % Goal: < 7.0 %Additional Action Suggested: > 8.0 %Note: Hemoglobin A1c results are invalid for patients with abnormal amounts of HbF. Blood transfusions may impact the HbA1c concentration in the patient sample. Estimated Average Glucose 163 mg/dL [facility] Comment:eAG = Estimated ave rage glucose which is %A1C expressed asaverage glucose, using the formula of the P1P-ZotvdrpCtzztfe Glucose study (ADAG), Diabetes Care, Vol.31,#8,Oct. 2007 08/19/2022 9:03 AM EDT 08/19/2022 11:12 AM EDT us [facility] External Provider LAB BLO OD ORDERABLES Final Result [facility] [address] [place] [phone] * Lipid Panel, Standard (08/19/2022 9:03 AM EDT) Triglycerides 91 mg/dL [facility] Comment:Desirable Triglyceri de: less than 150 mg/dLBorderline High Triglyceride 150-199 mg/dLHigh Triglyceride: 200-499 mg/dLVery High Triglyceride: greater than or equal to 5OO mg/dL Cholesterol 186 mg/dL [facility] Comment:Desirable Cholestero l: less than 200 mg/dLBorderline High Cholesterol: 200-239 mg/dLHigh Cholesterol: greater than 239 mg/dL LDL Cholesterol Calculated 129 mg/dl [facility] Comment:Desirable LDL: less than 100 mg/dLNear Optimal/Above Optimal LDL: 110- 129 mg/dLBorderline High LDL: 130-159 mg/dLHigh LDL: 160-189 mg/dLVery High LDL: greater than or equal to 190 mg/dL HDL Cholesterol 39 mg/dL [facility] Comment:Desirable HDL: great er than 40 mg/dL Note: This HDL assay may give artificially low results in patients with liver disease. 08/19/2022 9:03 AM EDT 08/19/2022 11:12 AM EDT [facility] External Provider LAB BLO OD ORDERABLES Final Result [facility] [address] [place] [address] [phone] * HEPATITIS C AB W/REFL TO HCV RNA, QN, PCR (07/16/2020 9:56 AM EDT) HEPATITIS C ANTIBODY NON-REACT DEN NON-REACT DEN [facility] INDEX 0.02 <1.00 [facility] Comment: HCV antibody was non-reactive. There is no laboratory evidence of HCV infection. In most cases, no further action is required. However, if recent HCV exposure is suspected, a test for HCV RNA (test code 59759) is suggested. For additional information please refer to http://education.Riiid/faq/DXM68h7 (This link is being provided for informational/ educational purposes only.) 07/16/2020 9:56 AM EDT Davida Webb DEPENDENCY PROGRAM DIRECTOR HISTORICAL/NON ORDERABLE LABS Final Result Performing Organization Address City/[facility] Co de Phone Number [facility] [address] [place] [address], * Hm Colonoscopy (05/01/2016) Colonoscopy Normal Normal Narrative Mary Kate Emmanuel - 05/01/2016 Repeat in 10 years Historical Provider MD HEALTH MAINTENANCE Final Result from Last 3 Months or Most Recently Relevant to Health Maintenance Insurance [facility] STANDARD MEDICARE DENTAL-[facility] MEDICAID [facility] ADULT Ari DE Ari DE Ari DE Care Teams Underwriting Operations Manager Relationship Specialty Start Date End Date Neptali Palomo DMD [address] [place] [phone] Dentist 05/18/24
--- OUTSIDE RECORDS SUMMARY | 2025-02-14 18:33 | XMS_ITS | Encounter Summary ---
Author Organization [employer] Address 75 [facility] 7t [place] [address] Care Team Providers Care Slip Box Changer Name Role Phone Neptali Palomo DMD Unavailable [phone] Reason for Visit * Reason Comments Med Refill Encounter Details Date Type Department Care Team (Late st Contact Info) Description 11/01/2023 Refill [facility] MEDICINE 230 [place], [place] [phone] Payal Walker, ANP 230 [place], [place] [phone] Primary hypertension Social History Tobacco Use Types [...] PM EST Office Visit [facility] [address] [place] [address] Larry Hopper documented as of this encounter Visit Diagnoses Diagnosis Primary hypertension Unspecified essential hypertension documented in this encounter Additional Health Concerns Assessment Noted Time PHQ-9 Depression Total Score: 0 08/05/19 2:13 PM EDT documented as of this encounter Care Teams Slip Box Changer Relationship Specialty Start Date End Date Neptali Palomo DMD [address] [place] [address] Dentist 05/18/24 documented as of this encounter
--- OUTSIDE RECORDS SUMMARY | 2025-02-14 18:33 | XMS_ITS | Encounter Summary ---
Author Organization [employer] Address 75 [facility] 7t [place] [address] Care Team Providers Care Systems Programmer Analyst Name Role Phone Walker Payal RUANO Primary Care Provider [phone] Neptali Palomo DMD Unavailable [phone] Reason for Visit * Reason Comments Med Refill Encounter Details Date Type Department Care Team ([facility] st Contact Info) Description 06/25/2023 Refill [facility] MEDICINE 230 [place], [place] [phone] Siena Greenwood MD [address] [place], [place] [phone] GERD without esophagitis Social History Tobacco Use [...] Description 04/20/2025 2:15 PM EST Office Visit [facility]C ADULT DENTAL 505 [place] [address] Larry Hopper documented as of this encounter Visit Diagnoses Diagnosis GERD without esophagitis Esophageal reflux documented in this encounter Additional Health Concerns Assessment Noted Time PHQ-9 Depression Total Score: 0 08/05/19 2:13 PM EDT documented as of this encounter Care Teams Systems Programmer Analyst Relationship Specialty Start Date End Date Payal Walker ANP [address] [place] [address] PCP - General Family Medicine 11/20/21 08/04/23 Neptali Palomo DMD [address] [place] [address] Dentist 05/18/24 documented as of this encounter
--- OUTSIDE RECORDS SUMMARY | 2025-02-14 18:33 | XMS_ITS | Encounter Summary ---
Author Organization [employer] Address 75 [facility] 7t [place] [address] Care Team Providers Care Electrical Assembly Supervisor Name Role Phone Neptali Palomo DMD Unavailable [phone] Reason for Visit * Reason Comments Med Refill Encounter Details Date Type Department Care Team (Late st Contact Info) Description 10/22/2023 Refill [facility] MEDICINE 230 [place], [place] [phone] Payal Walker, ANP 230 [place], [place] [phone] Type 2 diabetes mellitus with hyperlipidemia ([facility]/HCC) ([facility]) Social History [...] Description 04/20/2025 2:15 PM EST Office Visit [facility] ADULT DENTAL [address] [place] [address] Larry Hopper documented as of this encounter Visit Diagnoses Diagnosis Type 2 diabetes mellitus with hyperlipidemia (HCC) documented in this encounter Additional Health Concerns Assessment Noted Time PHQ-9 Depression Total Score: 0 08/05/19 2:13 PM EDT documented as of this encounter Care Teams Electrical Assembly Supervisor Relationship Specialty Start Date End Date Neptali Palomo DMD [address] [place] [address] Dentist 05/18/24 documented as of this encounter
== END 2025-02-14 09:56 | disposition home or self-care (01) ==
LOC: HO.HMGCLDS 09:55
PROVIDERS: PCP Nurse Practitioner Family; Visit Provider Internal Medicine Hypertension Specialist
DX: E78.5 Hyperlipidemia, unspecified (principal)
CPT/HCPCS: 36415; 80053; 80061; 85025

== ENCOUNTER 2025-02-15 14:00 | Outpatient (AMB) | payer MEDICARE, MEDICAID, SELFPAY ==
[2025-02-15 14:10] VITALS: BP 110/82; PULSE 84; BMI 28.1
--- NOTE | 2025-02-15 14:10 | A.OFFVIS_ITS ---
Vital Signs 02/15/25 14:10 Height 5 ft 8 in Weight 184 lb 11.958 oz BMI 28.1 BP 110/82 Blood Pressure Location Lt brachial Position Sitting Pulse 84 Pulse Source Monitor Intake Visit Reasons: 1 yr follow up Underground Roof Bolter Required: Yes Underground Roof Bolter Language: Rattlesnake Farmer Name: voice reeves [phone] Allergies codeine (CODEINE) Allergy (Intermediate, Verified 02/15/25 14:12) TACHYCARDIA Medication List - Last Reconciled 02/15/25 by PATRICIA Martínez acetone (urine) test (Ketone Urine Test strips) As directed for glucose over 250, nausea vomiting or illness t.i.d. Admelog SoloStar U-100 Insulin (insulin lispro) 80-150 10 units 151-200 12 units 201-300 14 units over 300 16 units subcutaneously 3 times a day; 30 days MDD 42 units NS albuterol sulfate 90 mcg/actuation (Ventolin HFA) 2 puffs inhalation Q6H PRN benzonatate 100 mg PO bid-tid PRN 7 days cetirizine-pseudoephedrine 5-120 mg ER 1 tab PO BID 7 days clonazepam 1 mg PO BEDTIME PRN cyclobenzaprine 10 mg PO Q8H dapagliflozin propanediol (Farxiga) 5 mg PO QAM 90 days fluoxetine 40 mg PO DAILY gabapentin 600 mg PO BEDTIME glucose (Dex4 Glucose) 16 grams (4 x 4 gram) PO Q15M PRN 30 days MDD 16 tablets hydroxyzine HCl 10 mg PO BEDTIME PRN insulin lispro (Admelog U-100 Insulin lispro) 60 units (0.6 mL) subcut DAILY losartan 25 mg PO DAILY 30 days needle (disp) 23 gauge (BD Integra Needle) As directed for changes in insulin cartridge q3days omeprazole 20 mg PO DAILY 90 days oxycodone 5 mg PO Q6H PRN pen needle, diabetic As directed pen needle, diabetic for qid NS pioglitazone 15 mg PO DAILY 30 days tadalafil 5 mg PO DAILY 90 days tamsulosin 0.4 mg PO BEDTIME 90 days Tresiba FlexTouch U-200 (insulin degludec) 28 units (0.14 mL) subcut BEDTIME NS HPI HPI 1 yr follow up: Details: Kate is a 63-year-old male with past medical history of hypertension, hyperlipidemia, diabetes, CVA, mild aortic stenosis who presents for follow-up. Today he reports that he has been doing generally well since his last visit a year ago. He now has an insulin pump which is working well for him. He has no chest discomfort, shortness of breath, heart palpitations, leg edema. He reports good activity tolerance and is able to climb stairs to his 2nd floor apartment without much difficulty. He does have knee discomfort at times. Compliant with his meds. Certified burial agent used. FORMERLY [facility], [facility] Medical History Palpitations Pancreatitis Arthritis GERD (gastroesophageal reflux disease) CVA (cerebral vascular accident) Microalbuminuric diabetic nephropathy Type II diabetes with residential use of insulin Erectile dysfunction Vitamin D deficiency Multinodular thyroid Other and unspecified hyperlipidemia Essential hypertension Aortic valve calcification Surgical History History of esophagogastroduodenoscopy (EGD) H/O colonoscopy Family History Father Stroke Brother Stroke Mother Diabetes Social History Household Members: Spouse Housing: House Alcohol intake: never Patient Tobacco Use Status: Former Tobacco user e-Cigarette/Vaping Use: Never Used service: No Current occupational status: disabled Cognitive needs: No Hearing needs: No Vision needs: Yes Review of Systems Const All systems reviewed & are unremarkable except as noted in HPI and below ENT Denies dizziness Card Denies chest pain, Denies chest pain at rest, Denies chest pain with activity, Denies rapid heart rate, Denies pedal edema, Denies edema, Denies leg edema, Denies lightheadedness, Denies palpitations, Denies dyspnea, Denies dyspnea on exertion and Denies orthopnea Resp Denies cough, Denies dyspnea and Denies dyspnea on exertion GI Denies hematochezia and Denies change in stool character Musc Denies abnormal gait, Denies limited range of motion, Denies muscle cramps, Denies muscle weakness, Denies numbness, Denies radiating pain into limb, Denies stiffness and Denies tingling Neuro Denies abnormal gait, Denies dizziness, Denies numbness and Denies tingling Endo Denies palpitations Physical Exam Vital Signs: Last Vital Signs Pulse 84 02/15/25 14:10 BP 110/82 02/15/25 14:10 BMI result Body Mass Index 28.1 Const General: cooperative, healthy appearing, comfortable and no acute distress Orientation/consciousness: patient oriented x3 Neck Neck: Yes normal visual inspection Resp Effort & Inspection: normal respiratory effort Auscultation: clear to auscultation bilaterally, no rales, no rhonchi and no wheezes Cardio Jugular venous distension: no JVD Rate: regular rate Rhythm: regular rhythm Heart sounds: S1 normal heart sound present, S2 normal heart sound present, Murmur heart sound present (faint systolic murmur) and no rubs Neuro General: patient oriented x3 Extrem General: Yes normal to inspection, No no pedal edema and No calf tenderness Psych Appearance: grossly normal Mental Status: mental status grossly normal Speech and movement: Normal speech and movement present Office Procedures EKG Details: Today, read by me, normal sinus rhythm, nonspecific T-wave abnormality, rate 84, QTC 404 milliseconds [id number], Complete Assessment & Plan Assessment & Plan (1) Aortic stenosis: Code(s): I35.0 - Nonrheumatic aortic (valve) stenosis Category: Medical Plan: Echocardiogram done 01/14/2023 showing EF 55-60%, mild aortic stenosis, possible bicuspid valve. Echocardiogram 01/22/2025 shows EF 65%, bicuspid aortic valve moderate calcification of the valve with mild aortic stenosis, ascending aorta normal. No significant murmur on exam. He has no cardinal signs of severe . Reviewed diagnosis of aortic stenosis with him. Will plan for repeat echo 2 years. Cardiology follow-up 2 years, sooner if needed. (2) Heart palpitations: Code(s): R00.2 - Palpitations Category: Medical Plan: Prior report of heart palpitations. 14 day Holter monitor done on 01/14/2023 showing sinus rhythm with average heart rate 81, heart rate range 47 to 151, rare SVE and VE. Currently denying palpitations. EKG today sinus rhythm, rate 84. Prior CVA was most likely related to vascular reason. No concern for AF at present. (3) Essential hypertension: Code(s): I10 - Essential (primary) hypertension Category: Medical Plan: Blood pressure was well controlled. No med changes made. (4) Stroke: Code(s): I63.9 - Cerebral infarction, unspecified Category: Medical Qualifiers: CVA mechanism: unspecified Qualified Code(s): I63.9 - Cerebral infarction, unspecified Plan: History of CVA. Symptoms of numbness and tingling in his left upper extremity with numbness around his mouth, right facial droop. CT was negative for acute findings. An MRI confirm no acute stroke but did show chronic microvascular ischemic changes and diffuse volume loss. Seen by Neurology and felt to have a micro infarction with recommendations of good blood sugar and cholesterol control. Plan I reviewed the results of the recent heart ultrasound with the patient, explaining the finding of a bicuspid aortic valve with two leaflets instead of three. I clarified that the valve is currently only mildly stiff, has been stable since the last evaluation, and does not typically cause symptoms unless it becomes severely stenotic. We discussed the plan for continued observation with a repeat ultrasound in two years. Patient Instructions: I reviewed the results of the recent heart ultrasound with the patient, explaining the finding of a bicuspid aortic valve with two leaflets instead of three. I clarified that the valve is currently only mildly stiff, has been stable since the last evaluation, and does not typically cause symptoms unless it becomes severely stenotic. We discussed the plan for continued observation with a repeat ultrasound in two years. Coding Level of Care Code Est Pt Level 3 (85930) Insp[employer] Program cplx 4 or more Diagnoses Aortic stenosis I35.0 Heart palpitations R00.2 Essential hypertension I10 Cerebrovascular accident (CVA), unspecified mechanism I63.9 CVA mechanism: unspecified CPT Codes EKG - CPT: 72828-[id number], Complete ([id number]) Time Spent (min) 24
--- OUTSIDE RECORDS SUMMARY | 2025-02-15 19:24 | XMS_ITS | Encounter Summary ---
Author Organization [employer] Address 75 [facility] 7t [place] [address] Care Team Providers Care Electronics Scale Tester Name Role Phone Aaron Payal RUANO Primary Care Provider [phone] Neptali Palomo DMD Unavailable [phone] Reason for Visit * Reason Comments Med Refill Encounter Details Date Type Department Care Team (Late st Contact Info) Description 10/20/2022 Refill [facility] MEDICINE [address] [place], [place] [phone] [facility] [address] [place], [place] [phone] Social History Tobacco Use Types Packs/Day Years [...] Description 04/20/2025 2:15 PM EST Office Visit [facility] ADULT DENTAL [address] [place] [address] Larry Hopper documented as of this encounter Visit Diagnoses Not on filedocumented in this encounter Additional Health Concerns Assessment Noted Time PHQ-9 Depression Total Score: 0 08/05/19 23 2:13 PM EDT documented as of this encounter Care Teams Electronics Scale Tester Relationship Specialty Start Date End Date Payal Walker ANP [address] [place] [address] PCP - General Family Medicine 11/20/21 08/04/23 Neptali aPlomo DMD [address] [place] [phone] Dentist 05/18/24 documented as of this encounter
--- OUTSIDE RECORDS SUMMARY | 2025-02-15 19:24 | XMS_ITS | Encounter Summary ---
Author Organization [employer] Address 75 [facility] 7t [place] [address] Care Team Providers Care Pulper Name Role Phone Neptali Palomo DMD Unavailable [phone] Reason for Visit * Reason Comments Med Refill Encounter Details Date Type Department Care Team (Late st Contact Info) Description 01/28/2024 Refill [facility] MEDICINE 230 [place], [place] [phone] Payal Walker, ANP [address] [place], [place] [phone] Social History Tobacco Use Types Packs/Day Years [...] [facility] ADULT DENTAL [address] [place] [address] Larry Hopper documented as of this encounter Visit Diagnoses Not on filedocumented in this encounter Additional Health Concerns Assessment Noted Time PHQ-9 Depression Total Score: 0 08/05/19 2:13 PM EDT documented as of this encounter Care Teams Pulper Relationship Specialty Start Date End Date Neptali Palomo DMD [address] [place] [address] Dentist 05/18/24 documented as of this encounter
--- OUTSIDE RECORDS SUMMARY | 2025-02-15 19:24 | XMS_ITS | Encounter Summary ---
Author Organization [employer] Address 75 [facility] 7t [place] [address] Care Team Providers Care Railroad Passenger Agent Name Role Phone Neptali Palomo DMD Unavailable [phone] Reason for Visit * Reason Comments Med Refill Encounter Details Date Type Department Care Team (Late st Contact Info) Description 12/09/2023 Refill [facility] MEDICINE [address] [place], [place] [phone] Payal Walker, ANP [address] [place], [place] [phone] Type 2 diabetes mellitus with hyperlipidemia ([facility]/HCC) ([facility]); Primary hypertension Social History [...] PM EST Office Visit [facility] ADULT DENTAL [address] [place] [address] Larry Hopper documented as of this encounter Visit Diagnoses Diagnosis Type 2 diabetes mellitus with hyperlipidemia (HCC) Primary hypertension Unspecified essential hypertension documented in this encounter Additional Health Concerns Assessment Noted Time PHQ-9 Depression Total Score: 0 08/05/19 2:13 PM EDT documented as of this encounter Care Teams Railroad Passenger Agent Relationship Specialty Start Date End Date Neptali Palomo DMD [address] [place] [address] Dentist 05/18/24 documented as of this encounter
--- OUTSIDE RECORDS SUMMARY | 2025-02-15 19:24 | XMS_ITS | Encounter Summary ---
Author Organization [employer] Address 75 [facility] 7t [place] [address] Care Team Providers Care Sales Applications Engineer Name Role Phone Neptali Palomo DMD Unavailable [phone] Reason for Visit * Reason Comments Med Refill Encounter Details Date Type Department Care Team (Late st Contact Info) Description 11/04/2023 Refill [facility] MEDICINE 230 [place], [place] [phone] Payal Walker, ANP [address] [place], [place] [phone] Type 2 diabetes mellitus with hyperlipidemia ([facility]/HCC) ([facility]) Social History Tobacco [...] Description 04/20/2025 2:15 PM EST Office Visit [facility] ADULT DENTAL [address] [place] [address] Larry Hopper documented as of this encounter Visit Diagnoses Diagnosis Type 2 diabetes mellitus with hyperlipidemia (HCC) documented in this encounter Additional Health Concerns Assessment Noted Time PHQ-9 Depression Total Score: 0 08/05/19 2:13 PM EDT documented as of this encounter Care Teams Sales Applications Engineer Relationship Specialty Start Date End Date Neptali Palomo DMD [address] [place] [address] Dentist 05/18/24 documented as of this encounter
--- OUTSIDE RECORDS SUMMARY | 2025-02-15 19:24 | XMS_ITS | Clinical Summary ---
Author Organization [employer] Address 75 [facility] 7t [place] [address] Care Team Providers Care Personal Security Specialist Name Role Phone Neptali Palomo DMD Unavailable [phone] Allergies Active Allergy Reactions Criticality Noted [...] diabetes mellitus without complication, unspecified whether termite technician insulin use 1 each before breakfast, before lunch, and before evening meal. 1 kit 07/11/19 23 Active Continuous Blood Gluc Engraver Picture (FreeStyle Agatha 2 [place]) deviceIndications: Type 2 diabetes mellitus with hyperlipidemia [...] Abdominal bloating 02/28/2024 Epigastric pain 02/28/2024 Stroke ([facility]) 08/17/2022 Assessment & Plan (08/17/2022 6:42 [...] fasting and chem -referred to neurologist at [place] x stroke f up and to f CT ,MRI findings --unsure if actual aneurysm in CTA? 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) 08/17/2022 Assessment & Plan (08/17/2022 6:41 [...] is your housing situation today? I have nigrid seda 01/15/[address] you [...] 04/20/2025 2:15 PM EST Office Visit [facility] ADULT D[facility] [address] [place] [address] Larry Hopper Health Maintenance Due Date Last [...] 9:03 AM EDT) Creatinine, Urine 89.78 mg/dL [facility] Microalbumin Urine 59.0 mg/L [facility] Microalbum Creatinine Ratio Ur 65.7 ug/mg cr [facility] Comment:Albumin/Creatinine R atio Reference Ranges: Normal: < 30 ug/mg creatinine Microalbuminuria: 30 - 300 ug/mg creatinineClinical Albuminuria: > 300 ug/mg creatinine 08/19/2022 9:03 AM EDT 08/19/2022 11:06 AM EDT us [employer] External Provider LAB URI NE ORDERABLES Final Result [facility] [address] [place] [phone] * Hemoglobin A1c (08/19/2022 9:03 AM EDT) Hemoglobin A1c 7.3 % [facility] Comment:Hemoglobin A1C Refer ence Range Adults: 4.8 - 6.0 % Non diabetic: < 6.0 % Goal: < 7.0 %Additional Action Suggested: > 8.0 %Note: Hemoglobin A1c results are invalid for patients with abnormal amounts of HbF. Blood transfusions may impact the HbA1c concentration in the patient sample. Estimated Average Glucose 163 mg/dL [facility] Comment:eAG = Estimated ave rage glucose which is %A1C expressed asaverage glucose, using the formula of the F2T-EozdoksEoiiczh Glucose study (ADAG), Diabetes Care, Vol.31,#8,Oct. 2007 08/19/2022 9:03 AM EDT 08/19/2022 11:12 AM EDT us [employer] External Provider LAB BLO OD ORDERABLES Final Result [facility] [address] [place] [phone] * Lipid Panel, Standard (08/19/2022 9:03 AM EDT) Triglycerides 91 mg/dL [facility] Comment:Desirable Triglyceri de: less than 150 mg/dLBorderline High Triglyceride 150-199 mg/dLHigh Triglyceride: 200-499 mg/dLVery High Triglyceride: greater than or equal to 5OO mg/dL Cholesterol 186 mg/dL [facility] Comment:Desirable Cholestero l: less than 200 mg/dLBorderline High Cholesterol: 200-239 mg/dLHigh Cholesterol: greater than 239 mg/dL LDL Cholesterol Calculated 129 mg/dl [facility] Comment:Desirable LDL: less than 100 mg/dLNear Optimal/Above Optimal LDL: 110- 129 mg/dLBorderline High LDL: 130-159 mg/dLHigh LDL: 160-189 mg/dLVery High LDL: greater than or equal to 190 mg/dL HDL Cholesterol 39 mg/dL [facility] Comment:Desirable HDL: great er than 40 mg/dL Note: This HDL assay may give artificially low results in patients with liver disease. 08/19/2022 9:03 AM EDT 08/19/2022 11:12 AM EDT [facility] External Provider LAB BLO OD ORDERABLES Final Result [facility] [address] [place] [address] [phone] * HEPATITIS C AB W/REFL TO HCV RNA, QN, PCR (07/16/2020 9:56 AM EDT) HEPATITIS C ANTIBODY NON-REACT DEN NON-REACT DEN [facility] INDEX 0.02 <1.00 [facility] Comment: HCV antibody was non-reactive. There is no laboratory evidence of HCV infection. In most cases, no further action is required. However, if recent HCV exposure is suspected, a test for HCV RNA (test code 33575) is suggested. For additional information please refer to http://education.Ingen.io/faq/TYZ70x9 (This link is being provided for informational/ educational purposes only.) 07/16/2020 9:56 AM EDT Davida Webb NOODLE MAKER HISTORICAL/NON ORDERABLE LABS Final Result Performing Organization Address City/[facility] Co de Phone Number [facility] [address] [place] [address], * Hm Colonoscopy (05/01/2016) Colonoscopy Normal Normal Narrative Mary Kate Emmanuel - 05/01/2016 Repeat in 10 years Historical Provider MD HEALTH MAINTENANCE Final Result from Last 3 Months or Most Recently Relevant to Health Maintenance Insurance [facility] STANDARD MEDICARE DENTAL-[facility] MEDICAID [facility] ADULT Ari LA Ari LA Ari LA Care Teams Personal Security Specialist Relationship Specialty Start Date End Date Neptali Palomo DMD [address] [place] [phone] Dentist 05/18/24
--- OUTSIDE RECORDS SUMMARY | 2025-02-15 19:24 | XMS_ITS | Encounter Summary ---
Author Organization [employer] Address 75 [facility] 7t [place] [address] Care Team Providers Care Double End Tenoner Operator Name Role Phone Neptali Palomo DMD Unavailable [phone] Reason for Visit * Reason Comments Med Refill Encounter Details Date Type Department Care Team (Late st Contact Info) Description 01/28/2024 Refill [facility] MEDICINE [address] [place], [place] [phone] Payal Walker, ANP [address] [place], [place] [phone] Type 2 diabetes mellitus with hyperlipidemia ([facility]/HCC) ([facility]) Social History Tobacco Use Types Packs/Day Years [...] Description 04/20/2025 2:15 PM EST Office Visit [facility] ADULT DENTAL [address] [place] [address] Larry Hopper documented as of this encounter Visit Diagnoses Diagnosis Type 2 diabetes mellitus with hyperlipidemia (HCC) documented in this encounter Additional Health Concerns Assessment Noted Time PHQ-9 Depression Total Score: 0 08/05/19 2:13 PM EDT documented as of this encounter Care Teams Double End Tenoner Operator Relationship Specialty Start Date End Date Neptali Palomo DMD [address] [place] [address] Dentist 05/18/24 documented as of this encounter
--- OUTSIDE RECORDS SUMMARY | 2025-02-15 19:25 | XMS_ITS | Encounter Summary ---
Author Organization [employer] Address 75 [facility] 7t [place] [address] Care Team Providers Care Feedmobile Driver Name Role Phone Neptali Palomo DMD Unavailable [phone] Reason for Visit * Reason Comments Med Refill Encounter Details Date Type Department Care Team (Late st Contact Info) Description 11/01/2023 Refill [facility] MEDICINE [address] [place], [place] [phone] Payal Walker, ANP [address] [place], [place] [phone] Primary hypertension Social History Tobacco Use Types [...] 2:15 PM EST Office Visit [facility] ADULT DENTAL [address] [place] [address] Larry Hopper documented as of this encounter Visit Diagnoses Diagnosis Primary hypertension Unspecified essential hypertension documented in this encounter Additional Health Concerns Assessment Noted Time PHQ-9 Depression Total Score: 0 08/05/19 2:13 PM EDT documented as of this encounter Care Teams Feedmobile Driver Relationship Specialty Start Date End Date Neptali Palomo DMD [address] [place] [address] Dentist 05/18/24 documented as of this encounter
--- OUTSIDE RECORDS SUMMARY | 2025-02-15 19:25 | XMS_ITS | Encounter Summary ---
Author Organization [employer] [facility] Address [address] [place] [address] [address] [place] [address] Care Team Providers Care Turbogenerator Operator Name Role Phone Payal Walker Primary Care Provider [phone] Neptali Palomo DMD Unavailable [phone] Encounter Details Date Type Department Care Team (Latest Contact Info) Description 10/03/2018 Abstract [facility] CONVERSIONS Dental, Provider, DDS Social [...] Description 04/20/2025 2:15 PM EST Office Visit [facility] ADULT DENTAL [address] [place] [address] Larry Hopper documented as of this encounter Visit Diagnoses Not on filedocumented in this encounter Care Teams Turbogenerator Operator Relationship Specialty Start Date End Date Payal Walker ANP [address] [place] [address] PCP - General Family Medicine 11/20/21 08/04/23 Neptali Palomo DMD [address] [place] [address] Dentist 05/18/24 documented as of this encounter
--- OUTSIDE RECORDS SUMMARY | 2025-02-15 19:25 | XMS_ITS | Encounter Summary ---
Author Organization [employer] Address 75 [facility] 7t [place] [address] Care Team Providers Care Construction Safety Consultant Name Role Phone Walker Payal RUANO Primary Care Provider [phone] Neptali Palomo DMD Unavailable [phone] Reason for Visit * Reason Comments Med Refill Encounter Details Date Type Department Care Team ([facility] st Contact Info) Description 06/25/2023 Refill [facility] MEDICINE [address] [place], [place] [phone] Siena Greenwood MD [address] [place], [place] [phone] GERD without esophagitis Social History Tobacco Use [...] 2:15 PM EST Office Visit [facility] ADULT DENTAL [address] [place] [address] Larry Hopper documented as of this encounter Visit Diagnoses Diagnosis GERD without esophagitis Esophageal reflux documented in this encounter Additional Health Concerns Assessment Noted Time PHQ-9 Depression Total Score: 0 08/05/19 2:13 PM EDT documented as of this encounter Care Teams Construction Safety Consultant Relationship Specialty Start Date End Date Payal Walker ANP [address] [place] [address] PCP - General Family Medicine 11/20/21 08/04/23 Neptali Palomo DMD [address] [place] [address] Dentist 05/18/24 documented as of this encounter
--- OUTSIDE RECORDS SUMMARY | 2025-02-15 19:25 | XMS_ITS | Encounter Summary ---
Author Organization [employer] [facility] Address [address] [place] [address] 7 [place] [address] Care Team Providers Care Process Camera Operator Name Role Phone Payal Walker Primary Care Provider [phone] Neptali Palomo DMD Unavailable [phone] Encounter Details Date Type Department Care Team (Latest Contact Info) Description 02/12/2020 Abstract [facility] CONVERSIONS Dental, Provider, DDS Social History [...] 04/20/2025 2:15 PM EST Office Visit [facility] CHC ADULT DENTAL [address] [place] [address] Larry Hopper documented as of this encounter Visit Diagnoses Not on filedocumented in this encounter Care Teams Process Camera Operator Relationship Specialty Start Date End Date Payal Walker ANP [address] [place] [address] PCP - General Family Medicine 11/20/21 08/04/23 Neptali Palomo DMD [address] [place] [address] Dentist 05/18/24 documented as of this encounter
--- OUTSIDE RECORDS SUMMARY | 2025-02-15 19:25 | XMS_ITS | Encounter Summary ---
Author Organization [employer] Address [address] [facility] 7t [place] [address] Care Team Providers Care Language Asst Name Role Phone Neptali Palomo DMD Unavailable [phone] Reason for Visit * Reason Comments Med Refill Encounter Details Date Type Department Care Team (Late st Contact Info) Description 10/22/2023 Refill [facility] MEDICINE [address] [place], [place] [phone] Payal Walker, ANP [address] [place], [place] [phone] Type 2 diabetes mellitus with hyperlipidemia ([facility]/HCC) ([facility]) Social History Tobacco Use Types [...] PM EST Office Visit [facility] CHC ADULT DENTAL [address] [place] [address] Larry Hopper documented as of this encounter Visit Diagnoses Diagnosis Type 2 diabetes mellitus with hyperlipidemia (HCC) documented in this encounter Additional Health Concerns Assessment Noted Time PHQ-9 Depression Total Score: 0 08/05/19 2:13 PM EDT documented as of this encounter Care Teams Language Asst Relationship Specialty Start Date End Date Neptali Palomo DMD [address] [place] [address] Dentist 05/18/24 documented as of this encounter
--- OUTSIDE RECORDS SUMMARY | 2025-02-15 19:25 | XMS_ITS | Encounter Summary ---
Author Organization [employer] Address 75 [facility] 7t [place] [address] Care Team Providers Care Garment Form Assembler Name Role Phone Neptali Palmoo DMD Unavailable [phone] Reason for Visit * Reason Comments Med Refill Encounter Details Date Type Department Care Team (Late st Contact Info) Description 04/14/2024 Refill [facility] MEDICINE [address] [place], [place] [phone] Payal Walker, ANP [address] [place], [place] [phone] Type 2 diabetes mellitus with hyperlipidemia ([facility]/HCC) ([facility]) Social History Tobacco [...] Description 04/20/2025 2:15 PM EST Office Visit [facility] CHC ADULT DENTAL [address] [place] [address] Larry Hopper documented as of this encounter Visit Diagnoses Diagnosis Type 2 diabetes mellitus with hyperlipidemia (HCC) documented in this encounter Additional Health Concerns Assessment Noted Time PHQ-9 Depression Total Score: 0 08/05/19 2:13 PM EDT documented as of this encounter Care Teams Garment Form Assembler Relationship Specialty Start Date End Date Neptali Palomo DMD [address] [place] [address] Dentist 05/18/24 documented as of this encounter
--- OUTSIDE RECORDS SUMMARY | 2025-02-15 19:25 | XMS_ITS | Encounter Summary ---
Author Organization [employer] Address [address] [facility] 7t [place] [address] Care Team Providers Care Varnish Blender Name Role Phone Walker Payal RUANO Primary Care Provider [phone] Neptali Palomo DMD Unavailable [phone] Encounter Details Date Type Department Care Team (Late st Contact Info) Description 02/16/2023 Abstract [facility] MEDICINE [address] [place], [place] [phone] Mary Kate Emmanuel Social History Tobacco Use [...] 04/20/2025 2:15 PM EST Office Visit [facility] ADULT DENTAL [address] [place] [address] Larry Hopper documented as of this encounter [...] documented as of this encounter Care Teams Varnish Blender Relationship Specialty Start Date End Date Payal Walker ANP [address] [place] [address] PCP - General Family Medicine 11/20/21 08/04/23 Neptali Palomo DMD [address] [place] [address] Dentist 05/18/24 documented as of this encounter
== END 2025-02-15 14:41 | disposition home or self-care (01) ==
LOC: HO.HCS 14:00
PROVIDERS: PCP Nurse Practitioner Family; Visit Provider Nurse Practitioner Family
DX: I35.0 Nonrheumatic aortic (valve) stenosis (principal); R00.2 Palpitations; I10 Essential (primary) hypertension; I63.9 Cerebral infarction, unspecified
CPT/HCPCS: 93010; 99213

== ENCOUNTER → 2025-02-15 14:00 | Outpatient (BNVA) | payer OTHER, SELFPAY | PROVIDERS: PCP Nurse Practitioner Family; Visit Provider Nurse Practitioner Family | DX: R00.2 Palpitations (principal); I35.0 Nonrheumatic aortic (valve) stenosis; I10 Essential (primary) hypertension; I63.9 Cerebral infarction, unspecified | CPT/HCPCS: 93005; 99212 ==

== ENCOUNTER 2025-03-01 10:06 | Day surgery (SDC) | payer OTHER, SELFPAY ==
--- OUTSIDE RECORDS SUMMARY | 2025-01-26 06:55 | XMS_ITS | Encounter Summary ---
Author Organization [employer] Address 75 [facility] 7t [place] [address] Care Team Providers Care Wild Animal Caretaker Name Role Phone Neptali Palomo DMD Unavailable [phone] Reason for Visit * Reason Comments Med Refill Encounter Details Date Type Department Care Team (Late st Contact Info) Description 11/04/2023 Refill [facility] MEDICINE 230 [place], [place] [phone] Payal Walker, ANP 230 [place], [place] [phone] Type 2 diabetes mellitus with hyperlipidemia ([facility]/HCC) ([facility] Social History Tobacco [...] Description 04/20/2025 2:15 PM EST Office Visit [facility] ADULT DENTAL [address] [place] [address] Larry oHpper documented as of this encounter Visit Diagnoses Diagnosis Type 2 diabetes mellitus with hyperlipidemia (HCC) documented in this encounter Additional Health Concerns Assessment Noted Time PHQ-9 Depression Total Score: 0 08/05/19 2:13 PM EDT documented as of this encounter Care Teams Wild Animal Caretaker Relationship Specialty Start Date End Date Neptali Palomo DMD [address] [place] [address] Dentist 05/18/24 documented as of this encounter
--- OUTSIDE RECORDS SUMMARY | 2025-01-26 06:55 | XMS_ITS | Encounter Summary ---
Author Organization [employer] Address 75 [facility] 7t [place] [address] Care Team Providers Care Party Plan Selling Distributor Name Role Phone Neptali Palomo DMD Unavailable [phone] Reason for Visit * Reason Comments Med Refill Encounter Details Date Type Department Care Team (Late st Contact Info) Description 12/09/2023 Refill [facility] MEDICINE 230 [place], [place] [phone] Payal Walker, ANP 230 [place], [place] [phone] Type 2 diabetes mellitus with hyperlipidemia ([facility]/HCC) ([facility]); Primary hypertension Social History Tobacco Use [...] 04/20/2025 2:15 PM EST Office Visit [facility] ADULT D[facility]AL [address] [place] [address] Larry Hopper documented as of this encounter Visit Diagnoses Diagnosis Type 2 diabetes mellitus with hyperlipidemia (HCC) Primary hypertension Unspecified essential hypertension documented in this encounter Additional Health Concerns Assessment Noted Time PHQ-9 Depression Total Score: 0 08/05/19 2:13 PM EDT documented as of this encounter Care Teams Party Plan Selling Distributor Relationship Specialty Start Date End Date Neptali Palomo DMD [address] [place] [address] Dentist 05/18/24 documented as of this encounter
--- OUTSIDE RECORDS SUMMARY | 2025-01-26 06:55 | XMS_ITS | Encounter Summary ---
Author Organization [employer] Address 75 [facility] 7t [place] [address] Care Team Providers Care Supervisor Wool Shearing Name Role Phone Neptali Palomo DMD Unavailable Reason for Visit * Reason Comments Med Refill Encounter Details Date Type Department Care Team (Late st Contact Info) Description 01/28/2024 Refill [facility] MEDICINE 230 [place], [place] [phone] Payal Walker, ANP [address] [place], [place] [phone] Social History Tobacco Use Types Packs/Day Years [...] Visit [facility] ADULT DENTAL [address] [place] [address] Larry Hopper documented as of this encounter Visit Diagnoses Not on filedocumented in this encounter Additional Health Concerns Assessment Noted Time PHQ-9 Depression Total Score: 0 08/05/19 2:13 PM EDT documented as of this encounter Care Teams Supervisor Wool Shearing Relationship Specialty Start Date End Date Neptali Palomo DMD [address] [place] [address] Dentist 05/18/24 documented as of this encounter
--- OUTSIDE RECORDS SUMMARY | 2025-01-26 06:55 | XMS_ITS | Encounter Summary ---
Author Organization [employer] Address 75 [facility] 7t [place] [address] Care Team Providers Care Global Vp Creative + Content Marketing Name Role Phone Aaron Payal RUANO Primary Care Provider [phone] Neptali Palomo DMD Unavailable [phone] Reason for Visit * Reason Comments Med Refill Encounter Details Date Type Department Care Team (Late st Contact Info) Description 10/20/2022 Refill [facility] MEDICINE 230 [place], [place] [phone] [facility] [address] [place], [place] [phone] Social History Tobacco Use Types Packs/Day Years [...] - [facility]ULT [facility] [address] [place] [address] Larry Hopper documented as of this encounter Visit Diagnoses Not on filedocumented in this encounter Additional Health Concerns Assessment Noted Time PHQ-9 Depression Total Score: 0 08/05/19 23 2:13 PM EDT documented as of this encounter Care Teams Global Vp Creative + Content Marketing Relationship Specialty Start Date End Date Payal Walker ANP [address] [place] [address] PCP - General Family Medicine 11/20/21 08/04/23 Neptali Palomo DMD [address] [place] [address] Dentist 05/18/24 documented as of this encounter
--- OUTSIDE RECORDS SUMMARY | 2025-01-26 06:56 | XMS_ITS | Encounter Summary ---
Author Organization [employer] Address 75 [facility] 7t [place] [address] Care Team Providers Care Hospice Care Consultant Name Role Phone Neptali Palomo DMD Unavailable [phone] Reason for Visit * Reason Comments Med Refill Encounter Details Date Type Department Care Team (Late st Contact Info) Description 01/28/2024 Refill [facility] MEDICINE [address] [place], [place] [phone] Payal Walker, ANP 230 [place], [place] [phone] Type 2 diabetes mellitus with hyperlipidemia ([facility]/HCC) ([facility]) Social [...] 04/20/2025 2:15 PM EST Office Visit [facility] ADULT DENTAL [address] [place] [address] Larry Hopper documented as of this encounter Visit Diagnoses Diagnosis Type 2 diabetes mellitus with hyperlipidemia (HCC) documented in this encounter Additional Health Concerns Assessment Noted Time PHQ-9 Depression Total Score: 0 08/05/19 2:13 PM EDT documented as of this encounter Care Teams Hospice Care Consultant Relationship Specialty Start Date End Date Neptali Palomo DMD [address] [place] [address] Dentist 05/18/24 documented as of this encounter
--- OUTSIDE RECORDS SUMMARY | 2025-01-26 06:56 | XMS_ITS | Encounter Summary ---
Author Organization [employer] Address 75 [facility] 7t [place] [address] Care Team Providers Care Damage Inside Adjuster Name Role Phone Neptali Palomo DMD Unavailable [phone] Reason for Visit * Reason Comments Med Refill Encounter Details Date Type Department Care Team (Late st Contact Info) Description 04/14/2024 Refill [facility] MEDICINE [address] [place], [place] [phone] Payal Walker, ANP [address] [place], [place] [phone] Type 2 diabetes mellitus with hyperlipidemia ([facility]/HCC) ([facility]) Social History Tobacco Use Types Packs/Day [...] Description 04/20/2025 2:15 PM EST Office Visit [facility] CHC ADULT DENTAL [address] [place] [address] Larry Hopper documented as of this encounter Visit Diagnoses Diagnosis Type 2 diabetes mellitus with hyperlipidemia (HCC) documented in this encounter Additional Health Concerns Assessment Noted Time PHQ-9 Depression Total Score: 0 08/05/19 2:13 PM EDT documented as of this encounter Care Teams Damage Inside Adjuster Relationship Specialty Start Date End Date Neptali Palomo DMD [address] [place] [address] Dentist 05/18/24 documented as of this encounter
--- OUTSIDE RECORDS SUMMARY | 2025-01-26 06:56 | XMS_ITS | Encounter Summary ---
Author Organization [employer] Address 75 [facility] 7t [place] [address] Care Team Providers Care Corporate Tax Manager Name Role Phone Walker Payal RUANO Primary Care Provider Neptali Palomo DMD Unavailable [phone] Reason for Visit * Reason Comments Med Refill Encounter Details Date Type Department Care Team ([facility] st Contact Info) Description 06/25/2023 Refill [facility] MEDICINE 230 [place], [place] [phone] Siena Greenwood MD [address] [place], [place] [phone] GERD without esophagitis Social History Tobacco Use [...] 2:15 PM EST Office Visit [facility] CHC ADULT DENTAL [address] [place] [address] Larry Hopper documented as of this encounter Visit Diagnoses Diagnosis GERD without esophagitis Esophageal reflux documented in this encounter Additional Health Concerns Assessment Noted Time PHQ-9 Depression Total Score: 0 08/05/19 2:13 PM EDT documented as of this encounter Care Teams Corporate Tax Manager Relationship Specialty Start Date End Date Payal Walker ANP [address] [place] [address] PCP - General Family Medicine 11/20/21 08/04/23 Neptali Palomo DMD [address] [place] [address] Dentist 05/18/24 documented as of this encounter
--- OUTSIDE RECORDS SUMMARY | 2025-01-26 06:56 | XMS_ITS | Encounter Summary ---
Author Organization [employer] Address 75 [facility] 7t [place] [address] Care Team Providers Care Retail Training Manager Name Role Phone Neptali Palomo DMD Unavailable [phone] Reason for Visit * Reason Comments Med Refill Encounter Details Date Type Department Care Team (Late st Contact Info) Description 11/01/2023 Refill [facility] MEDICINE [address] [place], [place] [phone] Payal Walker, ANP [address] [place], [place] [phone] Primary hypertension Social History Tobacco Use Types [...] [facility] ADULT DENTAL [address] [place] [address] Larry Hopper documented as of this encounter Visit Diagnoses Diagnosis Primary hypertension Unspecified essential hypertension documented in this encounter Additional Health Concerns Assessment Noted Time PHQ-9 Depression Total Score: 0 08/05/19 2:13 PM EDT documented as of this encounter Care Teams Retail Training Manager Relationship Specialty Start Date End Date Neptali Palomo DMD [address] [place] [address] Dentist 05/18/24 documented as of this encounter
--- OUTSIDE RECORDS SUMMARY | 2025-01-26 06:56 | XMS_ITS | Encounter Summary ---
Author Organization [employer] [facility] Address [address] [place] [address] 7 [place] [address] Care Team Providers Care Nurse Tech Name Role Phone Payal Walker Primary Care Provider [phone] Neptali Palomo DMD Unavailable [phone] Encounter Details Date Type Department Care Team (Latest Contact Info) Description 10/03/2018 Abstract [facility] Dental, Provider, DDS Social History [...] [facility] CH[facility] ADULT D[facility]AL [address] [place] [address] Larry Hopper documented as of this encounter Visit Diagnoses Not on filedocumented in this encounter Care Teams Nurse Tech Relationship Specialty Start Date End Date Payal Walker ANP [address] [place] [address] PCP - General Family Medicine 11/20/21 08/04/23 Neptali Palomo DMD [address] [place] [address] Dentist 05/18/24 documented as of this encounter
--- OUTSIDE RECORDS SUMMARY | 2025-01-26 06:56 | XMS_ITS | Encounter Summary ---
Author Organization [employer] [facility] Address [address] [place] [address] 7 [place] [address] Care Team Providers Care Facilities And Grounds Director Name Role Phone Payal Walker Primary Care Provider [phone] Neptali Palomo DMD Unavailable [phone] Encounter Details Date Type Department Care Team (Latest Contact Info) Description 02/12/2020 Abstract [facility] Dental, Provider, DDS Social History [...] Description 04/20/2025 2:15 PM EST Office Visit [facility] CHC ADULT DENTAL [address] [place] [address] Larry Hopper documented as of this encounter Visit Diagnoses Not on filedocumented in this encounter Care Teams Facilities And Grounds Director Relationship Specialty Start Date End Date Payal Walker ANP [address] [place] [address] PCP - General Family Medicine 11/20/21 08/04/23 Neptali Palomo DMD 505 [place] [address] Dentist 05/18/24 documented as of this encounter
--- OUTSIDE RECORDS SUMMARY | 2025-01-26 06:56 | XMS_ITS | Encounter Summary ---
Author Organization [employer] Address 75 [facility] 7t [place] [address] Care Team Providers Care Senior Manufacturing Engineer Name Role Phone Neptali Palomo DMD Unavailable [phone] Reason for Visit * Reason Comments Med Refill Encounter Details Date Type Department Care Team (Late st Contact Info) Description 10/22/2023 Refill [facility] MEDICINE [address] [place], [place] [phone] Payal Walker, ANP [address] [place], [place] [phone] Type 2 diabetes mellitus with hyperlipidemia ([facility]/HCC) ([facility]) Social History Tobacco Use Types [...] Description 04/20/2025 2:15 PM EST Office Visit [facility] CHC ADULT DENTAL [address] [place] [address] Larry Hopper documented as of this encounter Visit Diagnoses Diagnosis Type 2 diabetes mellitus with hyperlipidemia (HCC) documented in this encounter Additional Health Concerns Assessment Noted Time PHQ-9 Depression Total Score: 0 08/05/19 2:13 PM EDT documented as of this encounter Care Teams Senior Manufacturing Engineer Relationship Specialty Start Date End Date Neptali Palomo DMD [address] [place] [address] Dentist 05/18/24 documented as of this encounter
--- OUTSIDE RECORDS SUMMARY | 2025-01-26 06:56 | XMS_ITS | Clinical Summary ---
Author Organization [employer] Address 75 [facility] 7t [place] [address] Care Team Providers Care Oyster Unloader Name Role Phone Neptali Palomo DMD Unavailable [phone] Allergies Active Allergy Reactions Criticality Noted [...] 2 diabetes mellitus without complication, unspecified whether penitentiary insulin use 1 each before breakfast, before lunch, and before evening meal. 1 kit 07/11/19 23 Active Continuous Blood Gluc Ship Unloader (FreeStyle Agatha 2 [place]) deviceIndications: Type 2 diabetes mellitus with hyperlipidemia [...] Abdominal bloating 02/28/2024 Epigastric pain 02/28/2024 Stroke ([facility]) 08/17/2022 Assessment & Plan (08/17/2022 6:42 PM [...] fasting and chem -referred to neurologist at [place] x stroke f up and to f CT ,MRI findings --unsure if actual aneurysm in CTA? 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 ----to continue care w neurologist -states is following w cardiology for valvular abnormality -from chart review hx of aortic valve calcification-pt states will schedule a f up visit w his cards at [facility] Pituitary microadenoma ([facility]) 08/17/2022 Assessment & Plan (08/17/2022 6:41 PM [...] [facility] ADULT DENTAL [address] [place] [address] Larry Hopper Health Maintenance Due Date Last [...] 9:03 AM EDT) Creatinine, Urine 89.78 mg/dL [facility] Microalbumin Urine 59.0 mg/L [facility] Microalbum Creatinine Ratio Ur 65.7 ug/mg cr [facility] Comment:Albumin/Creatinine R atio Reference Ranges: Normal: < 30 ug/mg creatinine Microalbuminuria: 30 - 300 ug/mg creatinineClinical Albuminuria: > 300 ug/mg creatinine 08/19/2022 9:03 AM EDT 08/19/2022 11:06 AM EDT us [facility] External Provider LAB URI NE ORDERABLES Final Result [facility] [address] [place] [phone] * Hemoglobin A1c (08/19/2022 9:03 AM EDT) Hemoglobin A1c 7.3 % [facility] Comment:Hemoglobin A1C Refer ence Range Adults: 4.8 - 6.0 % Non diabetic: < 6.0 % Goal: < 7.0 %Additional Action Suggested: > 8.0 %Note: Hemoglobin A1c results are invalid for patients with abnormal amounts of HbF. Blood transfusions may impact the HbA1c concentration in the patient sample. Estimated Average Glucose 163 mg/dL [facility] Comment:eAG = Estimated ave rage glucose which is %A1C expressed asaverage glucose, using the formula of the I2G-KzzhlihZewcalm Glucose study (ADAG), Diabetes Care, Vol.31,#8,Oct. 2007 08/19/2022 9:03 AM EDT 08/19/2022 11:12 AM EDT us [facility] External Provider LAB BLO OD ORDERABLES Final Result [facility] [address] [place] [address] [phone] * Lipid Panel, Standard (08/19/2022 9:03 AM EDT) Triglycerides 91 mg/dL [facility] Comment:Desirable Triglyceri de: less than 150 mg/dLBorderline High Triglyceride 150-199 mg/dLHigh Triglyceride: 200-499 mg/dLVery High Triglyceride: greater than or equal to 5OO mg/dL Cholesterol 186 mg/dL [facility] Comment:Desirable Cholestero l: less than 200 mg/dLBorderline High Cholesterol: 200-239 mg/dLHigh Cholesterol: greater than 239 mg/dL LDL Cholesterol Calculated 129 mg/dl [facility] Comment:Desirable LDL: less than 100 mg/dLNear Optimal/Above Optimal LDL: 110- 129 mg/dLBorderline High LDL: 130-159 mg/dLHigh LDL: 160-189 mg/dLVery High LDL: greater than or equal to 190 mg/dL HDL Cholesterol 39 mg/dL [facility] Comment:Desirable HDL: great er than 40 mg/dL Note: This HDL assay may give artificially low results in patients with liver disease. 08/19/2022 9:03 AM EDT 08/19/2022 11:12 AM EDT [facility] External Provider LAB BLO OD ORDERABLES Final Result [facility] [address] [place] [address] [phone] * HEPATITIS C AB W/REFL TO [...] a test for HCV RNA (test code 56451) is suggested. For additional information please refer to http://education.Blue Box/faq/JBQ20s7 (This link is being provided for informational/ educational purposes only.) 07/16/2020 9:56 AM EDT Davida Webb THORACIC SURGEON HISTORICAL/NON ORDERABLE LABS Final Result Performing Organization Address City/[facility]/ZIP Co de Phone Number [facility] [address] [place] [address], * Hm Colonoscopy (05/01/2016) Colonoscopy Normal Normal Narrative Mary Kate Emmanuel - 05/01/2016 Repeat in 10 years Historical Provider MD HEALTH MAINTENANCE Final Result from Last 3 Months or Most Recently Relevant to Health Maintenance Insurance [facility] STANDARD MEDICARE DENTAL-[facility] MEDICAID STAND ADULT Ari NM Ari NM Ari NM Care Teams Oyster Unloader Relationship Specialty Start Date End Date Neptali Palomo DMD [address] [place] [phone] Dentist 05/18/24
--- OUTSIDE RECORDS SUMMARY | 2025-01-26 06:56 | XMS_ITS | Encounter Summary ---
Author Organization [employer] Address 75 [facility] 7t [place] [address] Care Team Providers Care Timber Girdler Name Role Phone Walker Payal RUANO Primary Care Provider [phone] Neptali Palomo DMD Unavailable [phone] Encounter Details Date Type Department Care Team (Late st Contact Info) Description 02/16/2023 Abstract [facility] MEDICINE [address] [place], [place] [phone] Mary Kate Emmanuel Social History Tobacco Use [...] Description 04/20/2025 2:15 PM EST Office Visit [facility] ADULT DENTAL [address] [place] [address] Larry Hopper documented as of this encounter [...] documented as of this encounter Care Teams Timber Girdler Relationship Specialty Start Date End Date Payal Walker ANP [address] [place] [address] PCP - General Family Medicine 11/20/21 08/04/23 Neptali Palomo DMD [address] [place] [address] Dentist 05/18/24 documented as of this encounter
--- NOTE | 2025-02-26 13:25 | HO.ANESPROP2 ---
Documented by User: Carla Adams NP 02/26/25 13:31 HPI - Anesthesia Eval Consult details Narrative: 64 yr old male for upper endoscopy Aortic stenosis: saw [facility] cardiology 02/15/25, stable, no symptoms; see Dec 2024 echo below. AV area 1.70, mean gradient 15. H/O CVA: Per cardiology note 01/2025, Symptoms of numbness and tingling in his left upper extremity with numbness around his mouth, right facial droop. CT was negative for acute findings. An MRI confirm no acute stroke but did show chronic microvascular ischemic changes and diffuse volume loss. Seen by Neurology and felt to have a micro infarction with recommendations of good blood sugar and cholesterol control. 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/cyst (Acute) Dyslipidemia (Acute) Proteinuria (Acute) Pancreatitis (Acute) Respiratory infection (Acute) Urinary hesitancy (Acute) Weak urinary stream (Acute) Screen for STD (sexually transmitted disease) (Acute) Screening PSA (prostate specific antigen) (Acute) Elevated alkaline phosphatase level (Acute) Elevated liver enzymes (Acute) Screening for colon cancer (Acute) Constipation (Acute) Facial asymmetry (Acute) Stroke (Acute) Personal history of colonic polyps (Acute) GERD (gastroesophageal reflux disease) (Acute) Abdominal pain (Acute) Aortic stenosis (Acute) Erectile dysfunction associated with type 2 diabetes mellitus (Acute) Osteoarthritis of right knee (Acute) Shortness of breath on exertion (Acute) Type 2 diabetes mellitus with unspecified complications (Acute) Heart palpitations (Acute) Microalbuminuric diabetic nephropathy (Acute) Type II diabetes with buttermaker helper use of insulin (Acute) Vitamin D deficiency (Acute) Multinodular thyroid (Acute) Essential hypertension (Acute) Aortic valve calcification (Acute) Past Medical History Medical History Insulin pump in place Palpitations Pancreatitis Arthritis GERD (gastroesophageal reflux disease) CVA (cerebral vascular accident) Microalbuminuric diabetic nephropathy Type II diabetes with skilled nursing use of insulin Erectile dysfunction Vitamin D deficiency Multinodular thyroid Other and unspecified hyperlipidemia Essential hypertension Aortic valve calcification Family History Family History Father Stroke Brother Stroke Mother Diabetes Family history of problems with anesthesia: No Surgical History Surgical History History of esophagogastroduodenoscopy (EGD) H/O colonoscopy History of Problems with Anesthesia: No Social History Social History Household Members: Spouse Housing: House Alcohol intake: never Patient Tobacco Use Status: Former Tobacco user e-Cigarette/Vaping Use: Never Used Use of substances other than those prescribed or required for medical reasons: No Are you DNR?: No Advance Directives: No Advance Directives Information Provided: Yes service: No Current occupational status: disabled Cognitive needs: No Hearing needs: No Vision needs: Yes Meds Allergies Allergy/AdvReac Type Severity Reaction Status Date / Time codeine (CODEINE) Allergy Intermediate TACHYCARDIA Verified 02/15/25 14:12 Home Medications ?Medication ?Instructions ?Recorded ?Confirmed ?Last Taken ?Type fluoxetine 40 mg capsule 40 mg PO DAILY 03/28/20 02/27/25 Unknown History hydroxyzine HCl 10 mg tablet 10 mg PO BEDTIME PRN Anxiety 03/28/20 02/27/25 Unknown History clonazepam 1 mg tablet 1 mg PO BEDTIME PRN Anxiety 06/17/21 02/27/25 Unknown History gabapentin 600 mg tablet 600 mg PO BEDTIME 01/18/23 02/27/25 Unknown History pen needle, diabetic 32 gauge x #100 ea 07/21/24 02/15/25 Unknown History 04/01 Exam Narrative Narrative: ECHO 01/22/25 Conclusions: - The left ventricular systolic function is normal. The calculated ejection fraction is 65% by biplane method. - There is a bicuspid aortic valve. There is moderate calcification of the aortic valve. There is mild aortic valve stenosis. EKG 02/15/25 NSR, rate 84 Non specific T wave abnormality Assessment and Plan Final Anesthetic Review Family History of Problems with Anesthesia: No History of Problems with Anesthesia: No Documented by User: Kyle Batista MD 03/01/25 11:51 [facility] Past Medical History Medical History Insulin pump in place Palpitations Pancreatitis Arthritis GERD (gastroesophageal reflux disease) CVA (cerebral vascular accident) Microalbuminuric diabetic nephropathy Type II diabetes with skilled nursing use of insulin Erectile dysfunction Vitamin D deficiency Multinodular thyroid Other and unspecified hyperlipidemia Essential hypertension Aortic valve calcification Functional capacity: independent ambulation Family History Family History Father Stroke Brother Stroke Mother Diabetes Surgical History Surgical History History of esophagogastroduodenoscopy (EGD) H/O colonoscopy Social History Social History Household Members: Spouse Housing: House Alcohol intake: never Patient Tobacco Use Status: Former Tobacco user e-Cigarette/Vaping Use: Never Used Use of substances other than those prescribed or required for medical reasons: No Are you DNR?: No Advance Directives: No Advance Directives Information Provided: Yes service: No Current occupational status: disabled Cognitive needs: No Hearing needs: No Vision needs: Yes Meds Allergies Allergy/AdvReac Type Severity Reaction Status Date / Time codeine (CODEINE) Allergy Intermediate TACHYCARDIA Verified 02/15/25 14:12 Home Medications ?Medication ?Instructions ?Recorded ?Confirmed ?Last Taken ?Type fluoxetine 40 mg capsule 40 mg PO DAILY 03/28/20 02/27/25 Unknown History hydroxyzine HCl 10 mg tablet 10 mg PO BEDTIME PRN Anxiety 03/28/20 02/27/25 Unknown History clonazepam 1 mg tablet 1 mg PO BEDTIME PRN Anxiety 06/17/21 02/27/25 Unknown History gabapentin 600 mg tablet 600 mg PO BEDTIME 01/18/23 02/27/25 Unknown History pen needle, diabetic 32 gauge x #100 ea 07/21/24 02/15/25 Unknown History 04/01 Exam Exam Date and Time: 03/01/25 Airway TM Dist: >3cm Heart: rrr Lungs: cta Other: normal Assessment and Plan Assessment Anesthesia Assessment: Anesthesia Plan Discussed and Smoking Cess. Discussed Final Anesthetic Review NPO: Yes ASA Class: II and III Final Preanesthetic Review: No Changes in Pt Med Stat, Meds/Allgs Chart Reviewed, Consent Obtained/Reviewed and Anes Risks/Benef Reviewed Patient Risk: Intermediate Procedure Risk: Low Anesthetic Plan Anesthetic Plan: MAC: Disposition: Standard PACU
[2025-02-27 12:36] VITALS: BMI 28.0
[2025-03-01 10:20] VITALS: BMI 28.0
[2025-03-01 10:29] VITALS: BP 129/85; PULSE 67; RESP 16; TEMP 36.6; O2SAT 95
--- NOTE | 2025-03-01 10:45 | MHC.SHP ---
Pre-Procedural Eval Section A - 24 Hr Update-Section A only Date of Service: 03/01/25 Section B - Complete if H&P > 30 days Chief Complaint: Splenic vein thrombosis Details of Present Illness: Palpitations Pancreatitis Arthritis GERD (gastroesophageal reflux disease) CVA (cerebral vascular accident) Microalbuminuric diabetic nephropathy Type II diabetes with retirement use of insulin Erectile dysfunction Vitamin D deficiency Multinodular thyroid Other and unspecified hyperlipidemia Essential hypertension Aortic valve calcification Surgical History History of esophagogastroduodenoscopy (EGD) H/O colonoscopy Present Medications: see Short Stay Collaborative assessment Allergies: Allergies Allergy/AdvReac Type Severity Reaction Status Date / Time codeine (CODEINE) Allergy Intermediate TACHYCARDIA Verified 02/15/25 14:12 Review of Systems Review of Systems Comment: Ten point ROS negative Exam Exam Comment: Gen appear: No acute distress HEENT: no icterus Chest: No overt resp distress Abd: soft, nontender, nondistended Psych: Stable affect, answering questions appropriately Neuro: A/Ox3 noted to move all extremities spontaneously Ext: no peripheral edema Plan Diagnosis/Plan: Unchanged I have reviewed the history and physical and performed a pertinent physical examination on my patient. No changes have occurred unless specified. Time Spent With Patient Time: Total time managing care of this patient today ____ minutes.
[2025-03-01] MEDS: Lactated Ringers 1,000 ML 100 ML IVCONT (10:51)
--- NOTE | 2025-03-01 11:52 | P.OP_ITS ---
Operative Note Operative Note Date of Service: 03/01/25 Narrative: Procedure: Esophagogastroduodenoscopy Endoscopist: Aminata Martin MD Indication: Splenic vein thrombosis r/o varices Anesthesia Provider: Dr Batista Anesthesia Type: MAC EGD Procedure:?? The procedure, indications, preparation and potential complications were reviewed with the patient, who indicated understanding and gave written informed consent to proceed. A physical exam was performed. The endoscope was introduced through the mouth, and advanced to the second part of duodenum. The mucosa was carefully examined on slow withdrawal of the endoscope. The patient tolerated the procedure well. There were no immediate complications.? ? EGD Findings:? * Esophagus:? 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 The Z line was at 33 cm displaced by a hiatal hernia with the diaphragmatic pinch at 37 cm. * Stomach:? A small polyp measuring 4 mm noted in the cardia. Jumbo forceps polypectomy was performed. Mild erythema with small erosions noted in the antrum. Jumbo forceps random gastric biopsies were obtained. * Duodenum:? Normal mucosa was noted in the whole of the examined duodenum. ? EGD Impressions:? * Flat varices * Hiatal hernia * Gastric polyp (biopsy) * Normal duodenum ?? Recommendations:?? * Follow biopsy results. Our office will call or send a letter with results within 7-10 days. * Avoid NSAIDs. * CT abdomen and pelvis with IV contrast to be done in April 2025 Above has been reviewed with the patient.
[2025-03-01 11:57] VITALS: BP 126/77; PULSE 75; RESP 16; TEMP 36.2; O2SAT 94
[2025-03-01 12:10] VITALS: BP 100/58; PULSE 82; RESP 16; TEMP 36.3; O2SAT 95
== END 2025-03-01 12:55 | disposition home or self-care (01) ==
PROVIDERS: PCP Nurse Practitioner Family; Visit Provider Internal Medicine
PROC: 0DJ08ZZ Inspection of Upper Intestinal Tract, Via Natural or Artificial Opening Endoscopic (ICD-10-PCS; CPT 43235; principal; 2025-03-01 11:30)
DX: I82.891 Chronic embolism and thrombosis of other specified veins (principal); K86.2 Cyst of pancreas; K31.7 Polyp of stomach and duodenum; I85.00 Esophageal varices without bleeding; K44.9 Diaphragmatic hernia without obstruction or gangrene
CPT/HCPCS: 43239; 88305; 88313; 88342; J2704; J3010

== ENCOUNTER → 2025-03-01 10:06 | Outpatient (BNV) | payer OTHER, SELFPAY | PROVIDERS: PCP Nurse Practitioner Family; Visit Provider Internal Medicine | DX: I85.00 Esophageal varices without bleeding (principal); I82.890 Acute embolism and thrombosis of other specified veins; K31.7 Polyp of stomach and duodenum | CPT/HCPCS: 43239 ==

== ENCOUNTER 2025-03-07 10:22 | Outpatient (AMB) | payer OTHER, SELFPAY | END 2025-03-07 10:23 | disposition home or self-care (01) | LOC: HO.HMGAL 10:22 | PROVIDERS: PCP Nurse Practitioner Family; Visit Provider Registered Nurse Emergency | DX: J30.89 Other allergic rhinitis (principal) | CPT/HCPCS: 95117; 95165 ==

== ENCOUNTER 2025-03-08 07:42 | Outpatient (AMB) | payer MEDICARE, SELFPAY ==
--- OUTSIDE RECORDS SUMMARY | 2025-03-08 07:51 | XMS_ITS | Encounter Summary ---
Author Organization [employer] Address [address] [facility] 7t [place] [address] Care Team Providers Care Maintenance Mgr Name Role Phone Aaron Payal RUANO Primary Care Provider [phone] Neptali Palomo DMD Unavailable [phone] Reason for Visit * Reason Comments Med Refill Encounter Details Date Type Department Care Team (Late st Contact Info) Description 10/20/2022 Refill [facility] MEDICINE [address] [place], [place] [phone] [facility] [address] [place], [place] [phone] Social History Tobacco Use Types Packs/Day Years [...] [facility] ADULT DENTAL [address] [place] [address] Larry Hopper documented as of this encounter Visit Diagnoses Not on filedocumented in this encounter Additional Health Concerns Assessment Noted Time PHQ-9 Depression Total Score: 0 08/05/19 23 2:13 PM EDT documented as of this encounter Care Teams Maintenance Mgr Relationship Specialty Start Date End Date Payal Walker ANP [address] [place] [address] PCP - General Family Medicine 11/20/21 08/04/23 Neptali Palomo DMD [address] [place] [address] Dentist 05/18/24 documented as of this encounter
--- OUTSIDE RECORDS SUMMARY | 2025-03-08 07:52 | XMS_ITS | Encounter Summary ---
Author Organization [employer] Address [address] [facility] 7t [place] [address] Care Team Providers Care Manager Cleaning Name Role Phone Neptali Palomo DMD Unavailable [phone] Reason for Visit * Reason Comments Med Refill Encounter Details Date Type Department Care Team (Late st Contact Info) Description 12/09/2023 Refill [facility] MEDICINE [address] [place], [place] [phone] Payal Walker, ANP [address] [place], [place] [phone] Type 2 diabetes mellitus with hyperlipidemia ([facility]/HCC) ([facility]); Primary hypertension Social History Tobacco Use Types [...] [facility] ADULT DENTAL [address] [place] [address] Larry Hopper documented as of this encounter Visit Diagnoses Diagnosis Type 2 diabetes mellitus with hyperlipidemia (HCC) Primary hypertension Unspecified essential hypertension documented in this encounter Additional Health Concerns Assessment Noted Time PHQ-9 Depression Total Score: 0 08/05/19 2:13 PM EDT documented as of this encounter Care Teams Manager Cleaning Relationship Specialty Start Date End Date Neptali Palomo DMD [address] [place] [address] Dentist 05/18/24 documented as of this encounter
--- OUTSIDE RECORDS SUMMARY | 2025-03-08 07:52 | XMS_ITS | Encounter Summary ---
Author Organization [employer] Address [address] [facility] 7t [place] [address] Care Team Providers Care Loom Fixer Name Role Phone Neptali Palomo DMD Unavailable [phone] Reason for Visit * Reason Comments Med Refill Encounter Details Date Type Department Care Team (Late st Contact Info) Description 11/04/2023 Refill [facility] MEDICINE [address] [place], [place] [phone] Payal Walker, ANP [address] [place], [place] [phone] Type 2 diabetes mellitus with hyperlipidemia ([facility]/HCC) ([facility]) Social History Tobacco Use Types Packs/Day Years Used Date Smoking Tobacco: Former Cigarettes Smokeless Tobacco: Never Alcohol Use Standard Drinks/Week Comments Not Currently 0 (1 standard drink = 0.6 oz pur e alcohol) Depression Answer Date Recorded Patient Health Questionnaire-9 Score 0 08/04/2022 Housing Stability Answer Date Recorded What is your housing situation today? I have ingrid stcak 01/15/[address] you li [...] [facility] [address] [place] [address] Larry Hopper documented as of this encounter Visit Diagnoses Diagnosis Type 2 diabetes mellitus with hyperlipidemia (HCC) documented in this encounter Additional Health Concerns Assessment Noted Time PHQ-9 Depression Total Score: 0 08/05/19 2:13 PM EDT documented as of this encounter Care Teams Loom Fixer Relationship Specialty Start Date End Date Neptali Palomo DMD [address] [place] [address] Dentist 05/18/24 documented as of this encounter
--- OUTSIDE RECORDS SUMMARY | 2025-03-08 07:53 | XMS_ITS | Encounter Summary ---
Author Organization [employer] Address [address] [facility] 7t [place] [address] Care Team Providers Care Sunday School Missionary Name Role Phone Neptali Palomo DMD Unavailable [phone] Reason for Visit * Reason Comments Med Refill Encounter Details Date Type Department Care Team (Late st Contact Info) Description 01/28/2024 Refill [facility] MEDICINE [address] [place], [place] [phone] Payal Walker, ANP [address] [place], [place] [phone] Type 2 diabetes mellitus with hyperlipidemia ([facility]/HCC) ([facility]) Social History Tobacco Use [...] 2:15 PM EST Office Visit [facility] CHC ADULT DENTAL [address] [place] [address] Larry Hopper documented as of this encounter Visit Diagnoses Diagnosis Type 2 diabetes mellitus with hyperlipidemia (HCC) documented in this encounter Additional Health Concerns Assessment Noted Time PHQ-9 Depression Total Score: 0 08/05/19 2:13 PM EDT documented as of this encounter Care Teams Sunday School Missionary Relationship Specialty Start Date End Date Neptali Palomo DMD [address] [place] [address] Dentist 05/18/24 documented as of this encounter
--- OUTSIDE RECORDS SUMMARY | 2025-03-08 07:53 | XMS_ITS | Encounter Summary ---
Author Organization [employer] Address 75 [facility] 7t [place] [address] Care Team Providers Care Needle Punch Machine Operator Name Role Phone Neptali Palomo DMD Unavailable [phone] Reason for Visit * Reason Comments Med Refill Encounter Details Date Type Department Care Team (Late st Contact Info) Description 01/28/[address] [facility] MEDICINE [address] [place], [place] [phone] Payal Walker, ANP [address] [place], [place] [phone] Social History Tobacco Use Types Packs/Day Years [...] 04/20/2025 2:15 PM EST Office Visit [facility] ADULT DENTAL [address] [place] [address] Larry Hopper documented as of this encounter Visit Diagnoses Not on filedocumented in this encounter Additional Health Concerns Assessment Noted Time PHQ-9 Depression Total Score: 0 08/05/19 2:13 PM EDT documented as of this encounter Care Teams Needle Punch Machine Operator Relationship Specialty Start Date End Date Neptali Palomo DMD [address] [place] [address] Dentist 05/18/24 documented as of this encounter
--- OUTSIDE RECORDS SUMMARY | 2025-03-08 07:54 | XMS_ITS | Clinical Summary ---
Author Organization [employer] Address [address] [facility] 7[address] [place] [address] Care Team Providers Care Market Survey Representative Name Role Phone Neptali Palomo DMD Unavailable [phone] Allergies Active Allergy Reactions Criticality Noted [...] diabetes mellitus without complication, unspecified whether long winder tender insulin use 1 each before breakfast, before lunch, and before evening meal. 1 kit 07/11/19 23 Active Continuous Blood Gluc Hospice Nurse (FreeStyle Agatha 2 [place]) deviceIndications: Type 2 diabetes mellitus with hyperlipidemia [...] Abdominal bloating 02/28/2024 Epigastric pain 02/28/2024 Stroke ([facility]) 08/17/2022 Assessment & Plan (08/17/2022 6:42 PM [...] fasting and chem -referred to neurologist at [facility] x stroke f up and to f CT ,MRI findings --unsure if actual aneurysm in CTA? 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 ----to continue care w neurologist -states is following w cardiology for valvular abnormality -from chart review hx of aortic valve calcification-pt states will schedule a f up visit w his cards at [facility] Pituitary microadenoma ([facility]) 08/17/2022 Assessment & Plan (08/17/2022 6:41 PM [...] 2:15 PM EST Office Visit [facility] ADULT DENTAL [address] [place] [address] Larry Hopper Health Maintenance Due Date Last [...] 9:03 AM EDT) Creatinine, Urine 89.78 mg/dL [facility] Microalbumin Urine 59.0 mg/L [facility] Microalbum Creatinine Ratio Ur 65.7 ug/mg cr [facility] Comment:Albumin/Creatinine R atio Reference Ranges: Normal: < 30 ug/mg creatinine Microalbuminuria: 30 - 300 ug/mg creatinineClinical Albuminuria: > 300 ug/mg creatinine 08/19/2022 9:03 AM EDT 08/19/2022 11:06 AM EDT [facility] External Provider LAB URI NE ORDERABLES Final Result [facility] [address] [place] [phone] * Hemoglobin A1c (08/19/2022 9:03 AM EDT) Hemoglobin A1c 7.3 % [facility] Comment:Hemoglobin A1C Refer ence Range Adults: 4.8 - 6.0 % Non diabetic: < 6.0 % Goal: < 7.0 %Additional Action Suggested: > 8.0 %Note: Hemoglobin A1c results are invalid for patients with abnormal amounts of HbF. Blood transfusions may impact the HbA1c concentration in the patient sample. Estimated Average Glucose 163 mg/dL [facility] Comment:eAG = Estimated ave rage glucose which is %A1C expressed asaverage glucose, using the formula of the [id number]-[id number] Glucose study (ADAG), Diabetes Care, Vol.31,#8,Oct. 2007 08/19/2022 9:03 AM EDT 08/19/2022 11:12 AM EDT us [facility] External Provider LAB BLO OD ORDERABLES Final Result [facility] [address] [place] [phone] * Lipid Panel, Standard (08/19/2022 9:03 AM EDT) Triglycerides 91 mg/dL [facility] Comment:Desirable Triglyceri de: less than 150 mg/dLBorderline High Triglyceride 150-199 mg/dLHigh Triglyceride: 200-499 mg/dLVery High Triglyceride: greater than or equal to 5OO mg/dL Cholesterol 186 mg/dL [facility] Comment:Desirable Cholestero l: less than 200 mg/dLBorderline High Cholesterol: 200-239 mg/dLHigh Cholesterol: greater than 239 mg/dL LDL Cholesterol Calculated 129 mg/dl [facility] Comment:Desirable LDL: less than 100 mg/dLNear Optimal/Above Optimal LDL: 110- 129 mg/dLBorderline High LDL: 130-159 mg/dLHigh LDL: 160-189 mg/dLVery High LDL: greater than or equal to 190 mg/dL HDL Cholesterol 39 mg/dL [facility] Comment:Desirable HDL: great er than 40 mg/dL Note: This HDL assay may give artificially low results in patients with liver disease. 08/19/2022 9:03 AM EDT 08/19/2022 11:12 AM EDT [facility] External Provider LAB BLO OD ORDERABLES Final Result [facility] [address] [place] [address] [phone] * HEPATITIS C AB W/REFL TO HCV RNA, QN, PCR (07/16/2020 9:56 AM EDT) HEPATITIS C ANTIBODY NON-REACT DEN NON-REACT [facility] INDEX 0.02 <1.00 [facility] Comment: HCV antibody was non-reactive. There is no laboratory evidence of HCV infection. In most cases, no further action is required. However, if recent HCV exposure is suspected, a test for HCV RNA (test code 82941) is suggested. For additional information please refer to http://education.Retora Black/faq/VNF47r6 (This link is being provided for informational/ educational purposes only.) 07/16/2020 9:56 AM EDT Davida Webb ONLINE SERVICES MANAGER HISTORICAL/NON ORDERABLE LABS Final Result Performing Organization Address City/[facility] Co de Phone Number [facility] [address] [place] [address], * Hm Colonoscopy (05/01/2016) Colonoscopy Normal Normal Narrative Mary Kate Emmanuel - 05/01/2016 Repeat in 10 years Historical Provider MD HEALTH MAINTENANCE Final Result from Last 3 Months or Most Recently Relevant to Health Maintenance Insurance [facility] STANDARD MEDICARE DENTAL-[facility] MEDICAID [facility] ADULT Ari MD Ari MD Ari MD Care Teams Market Survey Representative Relationship Specialty Start Date End Date Neptali Palomo DMD [address] [place] [phone] Dentist 05/18/24
--- OUTSIDE RECORDS SUMMARY | 2025-03-08 07:54 | XMS_ITS | Encounter Summary ---
Author Organization [employer] [facility] Address [address] [place] [address] 7t [place] [address] Care Team Providers Care Mime Artist Name Role Phone Payal Walker Primary Care Provider [phone] Neptali Palomo DMD Unavailable [phone] Encounter Details Date Type Department Care Team (Latest Contact Info) Description 02/12/2020 Abstract [facility] CONVERSIONS Dental, Provider, DDS Social [...] Description 04/20/2025 2:15 PM EST Office Visit [facility]ULT [facility] [address] [place] [address] Larry Hopper documented as of this encounter Visit Diagnoses Not on filedocumented in this encounter Care Teams Mime Artist Relationship Specialty Start Date End Date Payal Walker ANP [address] [place] [address] PCP - General Family Medicine 11/20/21 08/04/23 Neptali Palomo DMD [address] [place] [address] Dentist 05/18/24 documented as of this encounter
--- OUTSIDE RECORDS SUMMARY | 2025-03-08 07:54 | XMS_ITS | Encounter Summary ---
Author Organization [employer] [facility] Address [address] [place] [address] [address] [place] [address] Care Team Providers Care Lard Maker Name Role Phone Payal Walker Primary Care Provider [phone] Neptali Palomo DMD Unavailable [phone] Encounter Details Date Type Department Care Team (Latest Contact Info) Description 10/03/2018 Abstract [facility] CONVERSIONS Dental, Provider, DDS Social History [...] Description 04/20/2025 2:15 PM EST Office Visit [facility] ADULT DENTAL [address] [place] [address] Larry Hopper documented as of this encounter Visit Diagnoses Not on filedocumented in this encounter Care Teams Lard Maker Relationship Specialty Start Date End Date Payal Walker ANP [address] [place] [address] PCP - General Family Medicine 11/20/21 08/04/23 Neptali Palomo DMD [address] [place] [address] Dentist 05/18/24 documented as of this encounter
--- OUTSIDE RECORDS SUMMARY | 2025-03-08 07:55 | XMS_ITS | Encounter Summary ---
Author Organization [employer] Address [address] [facility] 7t [place] [address] Care Team Providers Care Instructional Support Assistant Name Role Phone Neptali Palomo DMD Unavailable [phone] Reason for Visit * Reason Comments Med Refill Encounter Details Date Type Department Care Team (Late st Contact Info) Description 04/14/2024 Refill [facility] MEDICINE [address] [place], [place] [phone] Payal Walker, ANP [address] [place], [place] [phone] Type 2 diabetes mellitus with hyperlipidemia ([facility]/H[facility]) ([facility]) [...] Description 04/20/2025 2:15 PM EST Office Visit [facility] ADULT DENTAL [address] [place] [address] Larry Hopper documented as of this encounter Visit Diagnoses Diagnosis Type 2 diabetes mellitus with hyperlipidemia (HCC) documented in this encounter Additional Health Concerns Assessment Noted Time PHQ-9 Depression Total Score: 0 08/05/19 2:13 PM EDT documented as of this encounter Care Teams Instructional Support Assistant Relationship Specialty Start Date End Date Neptali Palomo DMD [address] [place] [address] Dentist 05/18/24 documented as of this encounter
--- OUTSIDE RECORDS SUMMARY | 2025-03-08 07:56 | XMS_ITS | Encounter Summary ---
Author Organization [employer] Address [address] [facility] 7t [place] [address] Care Team Providers Care Evening Sitter Name Role Phone Walker Payal RUANO Primary Care Provider [phone] Neptali Palomo DMD Unavailable [phone] Encounter Details Date Type Department Care Team (Late st Contact Info) Description 02/16/2023 Abstract [facility] MEDICINE [address] [place], [place] [phone] Mary Kate Emmanuel Social History Tobacco Use [...] 04/20/2025 2:15 PM EST Office Visit [facility] ADULT DENTAL [address] [place] [address] Larry Hopper documented as of this encounter [...] documented as of this encounter Care Teams Evening Sitter Relationship Specialty Start Date End Date Payal Walker ANP [address] [place] [address] PCP - General Family Medicine 11/20/21 08/04/23 Neptali Palomo DMD [address] [place] [address] Dentist 05/18/24 documented as of this encounter
--- OUTSIDE RECORDS SUMMARY | 2025-03-08 07:56 | XMS_ITS | Encounter Summary ---
Author Organization [employer] Address [address] [facility] 7t [place] [address] Care Team Providers Care Director Foundation Name Role Phone Walker Payal RUANO Primary Care Provider [phone] Neptali Palomo DMD Unavailable [phone] Reason for Visit * Reason Comments Med Refill Encounter Details Date Type Department Care Team ([facility] st Contact Info) Description 06/25/2023 Refill [facility] MEDICINE [address] [place], [place] [phone] Siena Greenwood MD [address] [place], [place] [phone] GERD without esophagitis Social History Tobacco Use [...] [facility] [address] [place] [address] Larry Hopper documented as of this encounter Visit Diagnoses Diagnosis GERD without esophagitis Esophageal reflux documented in this encounter Additional Health Concerns Assessment Noted Time PHQ-9 Depression Total Score: 0 08/05/19 2:13 PM EDT documented as of this encounter Care Teams Director Foundation Relationship Specialty Start Date End Date Payal Walker ANP [address] [place] [address] PCP - General Family Medicine 11/20/21 08/04/23 Neptali Palomo DMD [address] [place] [address] Dentist 05/18/24 documented as of this encounter
--- OUTSIDE RECORDS SUMMARY | 2025-03-08 07:58 | XMS_ITS | Encounter Summary ---
Author Organization [employer] Address [address] [facility] 7t [place] [address] Care Team Providers Care Boring Machine Operator Vertical Name Role Phone Neptali Palomo DMD Unavailable Reason for Visit * Reason Comments Med Refill Encounter Details Date Type Department Care Team (Late st Contact Info) Description 11/01/2023 Refill [facility] MEDICINE [address] [place], [place] [phone] Payal Walker, ANP [address] [place], [place] [phone] Primary hypertension Social History Tobacco Use Types [...] Visit [facility] ADULT DENTAL [address] [place] [address] Larry Hopper documented as of this encounter Visit Diagnoses Diagnosis Primary hypertension Unspecified essential hypertension documented in this encounter Additional Health Concerns Assessment Noted Time PHQ-9 Depression Total Score: 0 08/05/19 2:13 PM EDT documented as of this encounter Care Teams Boring Machine Operator Vertical Relationship Specialty Start Date End Date Neptali Palomo DMD [address] [place] [address] Dentist 05/18/24 documented as of this encounter
--- OUTSIDE RECORDS SUMMARY | 2025-03-08 07:59 | XMS_ITS | Encounter Summary ---
Author Organization [employer] Address [address] [facility] [address]t [place] [address] Care Team Providers Care Diesel Machinist Name Role Phone Neptali Palomo DMD Unavailable [phone] Reason for Visit * Reason Comments Med Refill Encounter Details Date Type Department Care Team (Late st Contact Info) Description 10/22/2023 Refill [facility] MEDICINE [address] [place], [place] [phone] Payal Walker, ANP [address] [place], [place] [phone] Type 2 diabetes mellitus with hyperlipidemia ([facility]/H[facility]) ([facility]) Social History [...] Description 04/20/2025 2:15 PM EST Office Visit [facility] ADULT DENTAL [address] [place] [address] Larry Hopper documented as of this encounter Visit Diagnoses Diagnosis Type 2 diabetes mellitus with hyperlipidemia (HCC) documented in this encounter Additional Health Concerns Assessment Noted Time PHQ-9 Depression Total Score: 0 08/05/19 2:13 PM EDT documented as of this encounter Care Teams Diesel Machinist Relationship Specialty Start Date End Date Neptali Palomo DMD [address] [place] [address] Dentist 05/18/24 documented as of this encounter
[2025-03-08 08:16] VITALS: BP 120/80; PULSE 97; O2SAT 98; BMI 28.4
--- NOTE | 2025-03-08 08:16 | A.OFFPC_ITS ---
Vital Signs 03/08/25 08:16 Height 5 ft 8 in Weight 187 lb BMI 28.4 BP 120/80 Blood Pressure Location Lt brachial Position Sitting Pulse 97 Pulse Source Pulse Oximeter Pulse Oximetry (%) 98 Oxygen Delivery Method Room Air Intake Visit Reasons: 6m follow up - see comments Sales And Operations Trainee Required: No Accompanied by: Self / Same As Patient Allergies codeine (CODEINE) Allergy (Intermediate, Verified 02/15/25 14:12) TACHYCARDIA Medication List - Last Reconciled 03/08/25 by DONTA Martinez acetone (urine) test (Ketone Urine Test strips) As directed for glucose over 250, nausea vomiting or illness t.i.d. Admelog SoloStar U-100 Insulin (insulin lispro) 80-150 10 units 151-200 12 units 201-300 14 units over 300 16 units subcutaneously 3 times a day; 30 days MDD 42 units NS albuterol sulfate 90 mcg/actuation (Ventolin HFA) 2 puffs inhalation Q6H PRN benzonatate 100 mg PO bid-tid PRN 7 days cetirizine-pseudoephedrine 5-120 mg ER 1 tab PO BID 7 days clonazepam 1 mg PO BEDTIME PRN cyclobenzaprine 10 mg PO Q8H dapagliflozin propanediol (Farxiga) 5 mg PO QAM 90 days fluoxetine 40 mg PO DAILY gabapentin 600 mg PO BEDTIME glucose (Dex4 Glucose) 16 grams (4 x 4 gram) PO Q15M PRN 30 days MDD 16 tablets hydroxyzine HCl 10 mg PO BEDTIME PRN insulin lispro (Admelog U-100 Insulin lispro) 60 units (0.6 mL) subcut DAILY losartan 25 mg PO DAILY 30 days needle (disp) 23 gauge (BD Integra Needle) As directed for changes in insulin cartridge q3days omeprazole 20 mg PO DAILY 90 days oxycodone 5 mg PO Q6H PRN pen needle, diabetic As directed pen needle, diabetic for qid NS pioglitazone 15 mg PO DAILY 30 days tadalafil 5 mg PO DAILY 90 days tamsulosin 0.4 mg PO BEDTIME 90 days Tresiba FlexTouch U-200 (insulin degludec) 28 units (0.14 mL) subcut BEDTIME NS Tobacco use date assessed: 03/08/25 Dental Screening Dental Screen Date: 03/08/25 Did you have a dental visit in the last 12 months?: Yes Did you have a dental problem in the last 6 months where you did not have access to dental care?: No Was dental information given to patient?: Patient has dentist HPI 6m follow up - see comments HPI Details Chief Complaint Patient presents for a follow-up visit. History of Present Illness The patient is a 64 year old male presenting for a follow-up. He reports doing well overall. The patient follows with cardiology for aortic stenosis. He also sees an fence machine operator regularly for diabetes and a multinodular goiter. He is followed by gastroenterology for multiple issues. A CT of the abdomen and pelvis in January 2024 for abdominal discomfort revealed a cystic mass, which has been decreasing in size and is monitored by GI. At the same time, he had pancreatitis, thought to be related to GLP-1 agonist use. He has a history of chronic thrombosis of the splenic vein, also followed by GI. He undergoes endoscopies to screen for esophageal gastric varices. His most recent endoscopy on 03/01/2025 noted some flat varices, a hiatal hernia, and a gastric polyp that was biopsied. He sometimes experiences random, intermittent, and dull epigastric discomfort. He reports tolerating a diet with zero complaints today Social History - Nutrition: The patient is tolerating a diet. Health Maintenance - The patient regularly follows up with endocrinology, cardiology, and gastroenterology as scheduled. - PSA will be checked. - Thyroid function will be repeated toda y. Review of Systems - General: Reports doing well overall. - Cardiovascular: Denies chest pain. - Respiratory: Denies shortness of breat h. - Gastrointestinal: Reports occasional, random, intermittent, dull epigastric discomfort. - Denies pain with food, constipation, d iarrhea, blood in stool, or vomiting. Physical Exam General: Cooperative, healthy appearing, comfortable, no acute distress and well developed Orientation: Patient oriented x3 Limitations: No limitations Head: Normal to inspection Ears: Hearing grossly normal bilaterally Nose: Normal external nose present Face and sinus: Normal facial exam Eyes: Appearance normal, both eyes and all related structures Neck: Normal visual inspection and Yes full ROM Respiratory: Normal respiratory effort and able to speak in complete sentences. Clear to auscultation bilaterally Cardiovascular: Regular rate and rhythm. Faint systolic murmur. Normal S1 and S2 GI: Normal to inspection. Soft to palpation and nontender. Skin: No rashes or lesions noted Neuro: Patient oriented x3 Extremities: Normal to inspection. No edema noted Results - Labs: - Recent labs showed no leukocytosis and no anemia. - Kidney function was normal. - AST was 34 U/L and ALT was slightly el evated at 54 U/L. - LDL was 114 mg/dL. - Imaging: - CT abdomen/pelvis (01/2024): Showed a cystic mass in the pancreas. - Procedures: - Endoscopy (03/01/2025): Showed flat kimberly ices, a hiatal hernia, and a gastric polyp which was biopsied. Plan 1. Follow-Up The patient is doing well overall. He will have a PSA and thyroid function tests repeated today. He is encouraged to continue regular follow-up with Endocrinology, Cardiology, and Gastroenterology as scheduled. 2. Gastrointestinal Issues The patient has multiple GI issues including a pancreatic cystic mass, history of pancreatitis, chronic thrombosis of the splenic vein, esophageal varices, hiatal hernia, and a gastric polyp. These are being monitored by Gastroenterology, and the patient has an upcoming appointment with them next week to discuss all results, including the biopsy of a gastric polyp. His liver enzymes show a slightly elevated ALT. 3. Co-Morbidities Management The patient will continue to follow with Cardiology for aortic stenosis and with Endocrinology for his diabetes and multinodular goiter. Discussion Notes I discussed with the patient that he appears to be doing quite well. I strongly encouraged him to maintain his scheduled follow-up appointments with his specialists, including endocrinology, cardiology, and gastroenterology, on a regular basis. We reviewed his upcoming gastroenterology appointment next week, where he will get the results from his recent endoscopy and gastric polyp biopsy. We will obtain a PSA and repeat his thyroid function tests today. Patient Instructions - You are doing well overall. - Continue to follow up with your specia lists for endocrinology, cardiology, and gastroenterology as you have scheduled. - Make sure to attend your appointment w ith the dust mop maker next week to go over your recent test results. - We will check your blood today for PSA and thyroid levels. [facility] Medical History (Reviewed 03/08/25 @ 09:10 by Enmanuel Crowder, [facility]) Insulin pump in place Palpitations Pancreatitis Arthritis GERD (gastroesophageal reflux disease) CVA (cerebral vascular accident) Microalbuminuric diabetic nephropathy Type II diabetes with [facility] use of insulin Erectile dysfunction Vitamin D deficiency Multinodular thyroid Other and unspecified hyperlipidemia Essential hypertension Aortic valve calcification Surgical History (Reviewed 03/08/25 @ 09:10 by Enmanuel Crowder [facility]) History of esophagogastroduodenoscopy (EGD) H/O colonoscopy Family History (Reviewed 03/08/25 @ 09:10 by Enmanuel Crowder [facility]) Father Stroke Brother Stroke Mother Diabetes Social History (Reviewed 03/08/25 @ 09:10 by Enmanuel Crowder [facility]) Household Members: Spouse Housing: House Alcohol intake: never Patient Tobacco Use Status: Former Tobacco user e-Cigarette/Vaping Use: Never Used service: No Current occupational status: disabled Cognitive needs: No Hearing needs: No Vision needs: Yes Questionnaire PHQ-9 Over the last 2 weeks, how often have you been bothered by any of the following problems? 1. Little interest or pleasure in doing things: not at all 2. Feeling down, depressed, or hopeless: not at all 3. Trouble falling or staying asleep, or sleeping too much: not at all 4. Feeling tired or having little energy: not at all 5. Poor appetite or overeating: not at all 6. Feeling bad about yourself - or that you are a failure or have let yourself or your family down: not at all 7. Trouble concentrating on things, such as reading the newspaper or watching television: not at all 8. Moving or speaking so slowly that other people could have noticed. Or the opposite - being so fidgety or restless that you have been moving around a lot more than usual: not at all 9. Thoughts that you would be better off or of hurting yourself in some way: not at all Total score: 0 Depression Screening Interpretation: Negative Depression Screening Done: Yes 86737 - PHQ-9 Billing: Yes Source: Developed by Drs. Isidoro England, Kylie Fabian, Arnol Muñiz and colleagues, with an educational timur from [employer]. Thrive Questionnaire Date Thrive assessed: 09/07/24 LOBO-7 AMB Questionnaire LOBO-7 Date LOBO - 7 assessed: 03/08/25 Feeling nervous, anxious, or on edge: 0 = Not at all Not being able to stop or control worryin = Not at all Worrying too much about different things: 0 = Not at all Trouble relaxin = Not at all Being so restless that it is hard to sit still: 0 = Not at all Becoming easily annoyed or irritable: 0 = Not at all Feeling afraid as if something awful might happen: 0 = Not at all Total LOBO-7 score (0-4 normal; 5-9 mild; 10-14 moderate; 15-21 severe): 0 Source: Developed by Drs. Isidoro England, Kylie Fabian, Arnol Muñiz and colleagues, with an educational timur from [employer]. Physical exam (Primary Care) Vital Signs: Last Vital Signs Pulse 97 03/08/25 08:16 BP 120/80 03/08/25 08:16 Pulse Ox 98 03/08/25 08:16 Oxygen Delivery Method Room Air 03/08/25 08:16 BMI result Body Mass Index 28.4 Tobacco/Smoking Status: Tobacco use Status Tobacco use date assessed 03/08/25 03/08/25 08:20 Patient Tobacco Use Status Former Tobacco user 03/08/25 08:20 e-Cigarette/Vaping Use Never Used 03/08/25 08:20 PHQ-9: PHQ-9 Score PHQ-9: Total score 0 03/08/25 08:49 Depression Screening Interpretation: Negative Thrive Assessment: Date of Thrive Assessment Date Thrive assessed 09/07/24 03/08/25 08:20 Office Procedures Flu Questionnaire Does the patient have a severe egg allergy?: No Does the patient have severe life threatening allergies?: No Does the patient have a fever or illness today?: No Has the patient ever had Guillain-[place] Syndrome?: No Has the patient ever had any past reaction to a flu shot?: No Immunizations Fluarix [id number] (PF) 45 mcg (15 mcg x 3)/0.5 mL IM syringe Performing Provider: DONTA Martinez [place] [facility] [place] [facility] Administered by: Yuliet Huang MA on 03/08/25 08:56 Dose Route Admin Location Dispensed Lot Number Expiration Date [facility] Senior Systems Software Engineer 0.5 mL IM Left Deltoid 0.5 mL [id number] 09/25/25 [id number] [employer] VIS Given Date VIS Provided VIS Publication Date 03/08/25 Single Vaccine 24 Eligibility Eligibility Date Funding Source Not [facility] Eligible 03/08/25 Private Coding Level of Care Code Est Pt Level 4 (62305) Diagnoses Screening PSA (prostate specific antigen) Z12.5 Screening for hypothyroidism Z13.29 Aortic stenosis I35.0 Chronic thrombosis of splenic vein I82.891 Multinodular thyroid E04.2 Pancreatitis K85.90 Additional Codes PHQ-9 - 11292 - PHQ-9 Billing: Yes ([id number]) Assessment & Plan Assessment & Plan (1) Screening PSA (prostate specific antigen): Code(s): Z12.5 - Encounter for screening for malignant neoplasm of prostate Category: Medical (2) Screening for hypothyroidism: Code(s): Z13.29 - Encounter for screening for other suspected endocrine disorder Category: Medical (3) Aortic stenosis: Code(s): I35.0 - Nonrheumatic aortic (valve) stenosis Category: Medical (4) Chronic thrombosis of splenic vein: Code(s): I82.891 - Chronic embolism and thrombosis of other specified veins Category: Medical (5) Multinodular thyroid: Code(s): E04.2 - Nontoxic multinodular goiter Category: Medical (6) Pancreatitis: Code(s): K85.90 - Acute pancreatitis without necrosis or infection, unspecified Category: Medical Plan . Orders: Orders Prostate Specific Antigen Scr Today Z12.5 - Encounter for screening for malignant neoplasm of prostate Influenza [id number] Immunization Today Z23 - Encounter for immunization TSH reflex Free T4 Today Z13.29 - Encounter for screening for other suspected endocrine disorder
== END 2025-03-08 09:01 | disposition home or self-care (01) ==
PROVIDERS: PCP Nurse Practitioner Family; Visit Provider Nurse Practitioner Family
DX: Z12.5 Encounter for screening for malignant neoplasm of prostate (principal); Z13.29 Encounter for screening for other suspected endocrine disorder; I35.0 Nonrheumatic aortic (valve) stenosis; I82.891 Chronic embolism and thrombosis of other specified veins; E04.2 Nontoxic multinodular goiter; K85.90 Acute pancreatitis without necrosis or infection, unspecified; Z23 Encounter for immunization

== ENCOUNTER 2025-03-08 07:42 | Outpatient (REF) | payer OTHER, SELFPAY | END 2025-03-08 07:43 | disposition home or self-care (01) | LOC: HO.HMGCLDS 07:42 | PROVIDERS: PCP Nurse Practitioner Family; Visit Provider Nurse Practitioner Family | DX: I35.0 Nonrheumatic aortic (valve) stenosis (principal); Z13.29 Encounter for screening for other suspected endocrine disorder; Z12.5 Encounter for screening for malignant neoplasm of prostate; I82.891 Chronic embolism and thrombosis of other specified veins; E04.2 Nontoxic multinodular goiter; K85.90 Acute pancreatitis without necrosis or infection, unspecified; Z23 Encounter for immunization; Z13.39 Encounter for screening examination for other mental health and behavioral disorders | CPT/HCPCS: 36415; 84153; 84443; 90471; 90656; 96127; 99212 ==

== ENCOUNTER 2025-03-12 11:43 | Outpatient (AMB) | payer OTHER, SELFPAY ==
--- NOTE | 2025-03-12 12:37 | A.OFFVIS_ITS ---
Vital Signs 03/12/25 12:39 Height 5 ft 8 in Weight 187 lb BMI 28.4 BP 120/75 Blood Pressure Location Lt brachial Position Sitting Pulse 85 Pulse Oximetry (%) 97 Oxygen Delivery Method Room Air Intake Visit Reasons: s/p egd Intake Note: Patient follow up for EGD results. Patient cc: GERD medication is not helping him, denies any other GI issues. Foundry Technician Required: Yes Foundry Technician Name: [facility] Interpeter Accompanied by: Self / Same As Patient Allergies codeine (CODEINE) Allergy (Intermediate, Verified 03/12/25 12:37) TACHYCARDIA HPI Comments Details: This is a 61y.o M with PMH of HTN, HLD, GERD who is here after ER visit x 2 for abdominal pain. History was obtained from the pt with the help of a fire equipment operator. Main complaint is burning abd pain after he eats that started almost 2 weeks ago. No N/V/D. No fevers or chills. No changes in appetite or bowel habits. Takes ibuprofen for this. Does not smoke or etOH. Work up in ER included a CT abd/pelvis that showed some non-specific wall thickening in the small bowel. Labs grossly normal. Was given Omeprazole 40 and sucrafate 1g TID which have helped the sx. Of note, [place] [facility] [place] Repeat recommended in 5y, however pt was in [place] when he got the call to schedule the procedure and then did not call back to reschedule. 11/15/23: Procedure had to be canceled last year as pt got admitted for stroke. Now doing well. Here to rebook this procedure. Otherwise, no complaints. No abd pain, N,V,D. Previously had requested suprep but now requests a different prep. 03/16/24: 1. Normal colon mucosa 2. Total of 1 polyp removed 3. Diverticulosis 4. Internal hemorrhoids Path: Colon, transverse, polypectomy: Hyperplastic mucosal polyp. 04/05/24: No GI concerns at the moment. Wishes to review results in person, as letter had already been sent previously. Reassured that benign polyp. In terms of heartburn/gerd, this is well controlled on omeprazole 40 which he has been taking for almost 6 months now. 08/02/24: Here for follow up after MRI imaging. Had 6 cm cystic mass seen on CT abd/pel 01/2024. This was in the context of acute pancreatitis in Dec 2023 - was in [facility]. Panc was thought to be 2/2 GLP-1 use. Pt does not report recent hx of etOH use. Reports had a remote hx of pancreatitis in his 20s. Follow up imaging since Jan 2024 have shown interval decrease in the size of this likely WOPN to 2.8 cm on most recent MRI. Of note pt also noted to have chronic PV thrombosis with collaterals. Pt himself only reports intermittent R sided pain. Not assoc with food. SOmetimes with bloating an increased flatulence. No change in BMs, has 1 regular BM per day without straining. 03/01/25: EGD: * Flat varices * Hiatal hernia * Gastric polyp (biopsy) * Normal duodenum A. Stomach, polyp, biopsy: Oxyntic mucosa with mild chronic inactive inflammation and surface hyperplastic changes; no Helicobacter organisms identified. B. Stomach, random, biopsy: Antral-type and oxyntic mucosa with mild chronic inactive inflammation; no Helicobacter organisms seen. 03/12/25: Here for follow up. Seen with fire equipment operator. EGD results reviewed and reassured. Has questions about hiatal hernia. Reviewed that this is small/medium with well controlled reflux i.e no esophagitis noted on EGD. However can eval further with barium swallow. In terms of panc cyst - needs follow up imaging in Apr 2025 - 6 months from October scan. --- Pt was informed and consented to the use of ambient scribe for this encounter. --- [facility] Medical History Insulin pump in place Palpitations Pancreatitis Arthritis GERD (gastroesophageal reflux disease) CVA (cerebral vascular accident) Microalbuminuric diabetic nephropathy Type II diabetes with senior care use of insulin Erectile dysfunction Vitamin D deficiency Multinodular thyroid Other and unspecified hyperlipidemia Essential hypertension Aortic valve calcification Surgical History History of esophagogastroduodenoscopy (EGD) H/O colonoscopy Family History Father Stroke Brother Stroke Mother Diabetes Social History Household Members: Spouse Housing: House Alcohol intake: never Patient Tobacco Use Status: Former Tobacco user e-Cigarette/Vaping Use: Never Used service: No Current occupational status: disabled Cognitive needs: No Hearing needs: No Vision needs: Yes Review of Systems Const All systems reviewed & are unremarkable except as noted in HPI and below Physical Exam Vital Signs: Last Vital Signs Pulse 85 03/12/25 12:39 BP 120/75 03/12/25 12:39 Pulse Ox 97 03/12/25 12:39 Oxygen Delivery Method Room Air 03/12/25 12:39 BMI result Body Mass Index 28.4 Assessment & Plan Assessment & Plan (1) Pancreatic pseudocyst/cyst: Code(s): K86.2 - Cyst of pancreas; K86.3 - Pseudocyst of pancreas Category: Medical (2) Chronic thrombosis of splenic vein: Code(s): I82.891 - Chronic embolism and thrombosis of other specified veins Category: Medical (3) GERD (gastroesophageal reflux disease): Code(s): K21.9 - Gastro-esophageal reflux disease without esophagitis Category: Medical (4) Hiatal hernia: Code(s): K44.9 - Diaphragmatic hernia without obstruction or gangrene Category: Medical Plan 1. Panc cyst Likely had WOPN after AIP episode in dec 2023. This is decreasing in size. Etiology of pancreatitis was deemed to be 2/2 GLP 1 use. However given dilated PD, would recommend another MRI in 6 months once WOPN completely resolved to r/o mucinous cyst/neoplasm. Plan: - MRI abd with and without contrast in Apr 2025. Ordered already by PCP (reminder set to follow up on results) 2. PV thrombosis Likely provoked 2/2 AIP in Dec 2023. Has collaterals noted on imaging. No significant PH on EGD. Plan: - Hold off AC as this is chronic clot with collaterals and no propagation noted on serial imaging. - Will review clot burden on next MRI 3. GERD/hiatal hernia Pt already on omeprazole however has apprehensions re HH despite reassurance re size. Plan: - Barium swallow ordered for eval follow up 3 months Orders: Orders FL barium swallow Today K21.9 - Gastro-esophageal reflux disease without esophagitis, K44.9 - Diaphragmatic hernia without obstruction or gangrene Medications: Refilled omeprazole 20 mg PO DAILY 90 caps 2RF 90 days Coding Level of Care Code Est Pt Level 4 (16372) Diagnoses Pancreatic pseudocyst/cyst K86.2; K86.3 Chronic thrombosis of splenic vein I82.891 GERD (gastroesophageal reflux disease) K21.9 Hiatal hernia K44.9
[2025-03-12 12:39] VITALS: BP 120/75; PULSE 85; O2SAT 97; BMI 28.4
== END 2025-03-12 13:14 | disposition home or self-care (01) ==
LOC: HO.HGI 11:44
PROVIDERS: PCP Nurse Practitioner Family; Visit Provider Internal Medicine
DX: K86.2 Cyst of pancreas (principal); K86.3 Pseudocyst of pancreas; I82.891 Chronic embolism and thrombosis of other specified veins; K21.9 Gastro-esophageal reflux disease without esophagitis; K44.9 Diaphragmatic hernia without obstruction or gangrene
CPT/HCPCS: 99214

== ENCOUNTER → 2025-03-12 11:43 | Outpatient (BNVA) | payer OTHER, SELFPAY | PROVIDERS: PCP Nurse Practitioner Family; Visit Provider Internal Medicine | DX: K86.2 Cyst of pancreas (principal); I82.891 Chronic embolism and thrombosis of other specified veins; K21.9 Gastro-esophageal reflux disease without esophagitis; K44.9 Diaphragmatic hernia without obstruction or gangrene; Z79.899 Other long term (current) drug therapy; Z87.891 Personal history of nicotine dependence | CPT/HCPCS: 99212 ==

== ENCOUNTER 2025-03-15 12:05 | Outpatient (AMB) | payer OTHER, SELFPAY ==
--- NOTE | 2025-03-15 12:44 | MHC.AMDMED ---
Intake Intake Visit Reasons: 60 mins Drawing In Machine Tender Required: Yes Drawing In Machine Tender Language: Container Filler Name: Rylee [id number] Allergies codeine (CODEINE) Allergy (Intermediate, Verified 03/12/25 12:37) TACHYCARDIA HPI Comprehensive Diabetes Asmnt Most Recent Diabetes Results: Cholesterol, (<200) 174 mg/dL 02/14/25 HDL Cholesterol, (>40) 41 mg/dL 02/14/25 Triglycerides, (<150) 95 mg/dL 02/14/25 Creatinine, (0.5-1.4) 0.85 mg/dL 02/14/25 BUN, (9-16) 27 mg/dL H 02/14/25 Sodium, (135-145) 140 mmol/L 02/14/25 Potassium, (3.3-5.1) 3.8 mmol/L 02/14/25 Chloride, (96-108) 104 mmol/L 02/14/25 Carbon Dioxide, (22-29) 28 mmol/L 02/14/25 Calcium, (8.4-10.2) 9.0 mg/dL 02/14/25 AST, (5-37) 34 U/L 02/14/25 ALT, (0-40) 54 U/L H 02/14/25 Total Protein, (6.5-8.0) 7.4 g/dL 02/14/25 Albumin, (3.5-5.0) 4.3 g/dL 02/14/25 [facility] Medical History Insulin pump in place Palpitations Pancreatitis Arthritis GERD (gastroesophageal reflux disease) CVA (cerebral vascular accident) Microalbuminuric diabetic nephropathy Type II diabetes with long-term use of insulin Erectile dysfunction Vitamin D deficiency Multinodular thyroid Other and unspecified hyperlipidemia Essential hypertension Aortic valve calcification Surgical History History of esophagogastroduodenoscopy (EGD) H/O colonoscopy Family History Father Stroke Brother Stroke Mother Diabetes Social History Household Members: Spouse Housing: House Alcohol intake: never Patient Tobacco Use Status: Former Tobacco user e-Cigarette/Vaping Use: Never Used service: No Current occupational status: disabled Cognitive needs: No Hearing needs: No Vision needs: Yes Assessment & Plan Assessment & Plan (1) Type 2 diabetes mellitus with unspecified complications: Code(s): E11.8 - Type 2 diabetes mellitus with unspecified complications Plan: Patient presents for pump training for iLet pump and CGM training today. The following topics were reviewed today: -Pump therapy basic concepts: Basal/bolus -For most effective glucose control bolus prior to meals - Off pump backup insulin plan iLet Alerts: ??? High Alert: 300 mg/dl ??? Low Alert: 75 mg/dl Overall patient is satisfied insulin pump therapy Patient reported concern over running out of insulin when away from home. Suggested to patient if he notices he has less than 30 units in cartridge before he leaves home, he can change cartridge before leaving home, or bring insulin or pre-filled cartridge with him. Patient had sensor fail is concerned he would not have enough sensors [facility]. Instructed patient if sensors fail he should [facility] replacement sensor. At today's visit patient was given 2 sample Agatha 3+ sensors. Instructed patient if he needs sensors or insulin pump supplies to contact clinic Patient has follow-up appointment with provider on 05/01/2024 Encourage patient to try and announce all carbohydrate meals greater than 15 g. Patient has some missed meal announcements which has led to hyperglycemia. Troubleshooting after starting new pod or inserting new insulin set: Occlusion, adhesive tape sensitivity, redness Check BG 2 hours after site change Reviewed Safety information: Importance of a backup plan, for manual injections, proper prescriptions and emergency supplies ketone strips, and rules for testing for ketones Patient understands the basic concepts of pump therapy, how to give insulin for meals and snacks, how to troubleshoot for hyper and hypoglycemia. Requested updated prescription be sent for rapid acting insulin up to 100 units per day Patient will follow up with [facility] as instructed Patient will contact [facility] with questions or concerns, patient given IT number to support in any technical issues related to insulin pump Portions of this note were created using voice recognition software, please excuse any words or phrases that may have been misinterpreted. Coding Level of Care Code Est Pt Level 1 (22341) Diagnoses Type 2 diabetes mellitus with unspecified complications E11.8
--- OUTSIDE RECORDS SUMMARY | 2025-03-15 15:57 | XMS_ITS | Encounter Summary ---
Author Organization [employer] Address [address] [facility] 7t [place] [address] Care Team Providers Care Referral Agent Name Role Phone Neptali Palomo DMD Unavailable [phone] Reason for Visit * Reason Comments Med Refill Encounter Details Date Type Department Care Team (Late st Contact Info) Description 12/09/2023 Refill [facility] MEDICINE 230 [place], [place] [phone] Paayl Walker, ANP 230 [place], [place] [phone] Type 2 diabetes mellitus with hyperlipidemia ([facility]/HCC) ([facility]); Primary hypertension Social [...] Visit [facility] ADULT DENTAL [address] [place] [address] Larry Hopper documented as of this encounter Visit Diagnoses Diagnosis Type 2 diabetes mellitus with hyperlipidemia (HCC) Primary hypertension Unspecified essential hypertension documented in this encounter Additional Health Concerns Assessment Noted Time PHQ-9 Depression Total Score: 0 08/05/19 2:13 PM EDT documented as of this encounter Care Teams Referral Agent Relationship Specialty Start Date End Date Neptali Palomo DMD [address] [place] [address] Dentist 05/18/24 documented as of this encounter
--- OUTSIDE RECORDS SUMMARY | 2025-03-15 15:57 | XMS_ITS | Encounter Summary ---
Author Organization [employer] Address 75 [facility] 7t [place] [address] Care Team Providers Care Business Performance Analyst Name Role Phone Neptali Palomo DMD Unavailable [phone] Reason for Visit * Reason Comments Med Refill Encounter Details Date Type Department Care Team (Late st Contact Info) Description 11/01/2023 Refill [facility] MEDICINE [address] [place], [place] [phone] Payal Walker, ANP 230 [place], [place] [phone] Primary hypertension Social History Tobacco Use Types [...] [facility] [address] [place] [address] Larry Hopper documented as of this encounter Visit Diagnoses Diagnosis Primary hypertension Unspecified essential hypertension documented in this encounter Additional Health Concerns Assessment Noted Time PHQ-9 Depression Total Score: 0 08/05/19 2:13 PM EDT documented as of this encounter Care Teams Business Performance Analyst Relationship Specialty Start Date End Date Neptali Palomo DMD 505 [place] [address] Dentist 05/18/24 documented as of this encounter
--- OUTSIDE RECORDS SUMMARY | 2025-03-15 15:57 | XMS_ITS | Encounter Summary ---
Author Organization [employer] Address 75 [facility] 7t [place] [address] Care Team Providers Care Seismic Prospecting Observer Name Role Phone Neptali Palomo DMD Unavailable [phone] Reason for Visit * Reason Comments Med Refill Encounter Details Date Type Department Care Team (Late st Contact Info) Description 10/22/2023 Refill [facility] MEDICINE 230 [place], [place] [phone] Payal Walker, ANP 230 [place], [place] [phone] Type 2 diabetes mellitus with hyperlipidemia ([facility]/HCC) ([facility]) Social History Tobacco Use Types Packs/Day [...] Description 04/20/2025 2:15 PM EST Office Visit [facility] ADULT D[facility]AL [address] [place] [address] Larry Hopper documented as of this encounter Visit Diagnoses Diagnosis Type 2 diabetes mellitus with hyperlipidemia (HCC) documented in this encounter Additional Health Concerns Assessment Noted Time PHQ-9 Depression Total Score: 0 08/05/19 2:13 PM EDT documented as of this encounter Care Teams Seismic Prospecting Observer Relationship Specialty Start Date End Date Neptali Palomo DMD 505 [place] [address] Dentist 05/18/24 documented as of this encounter
--- OUTSIDE RECORDS SUMMARY | 2025-03-15 15:57 | XMS_ITS | Encounter Summary ---
Author Organization [employer] [facility] Address [address] [place] [address] 7 [place] [address] Care Team Providers Care Director E Learning Name Role Phone Payal Walker Primary Care Provider [phone] Neptali Palomo DMD Unavailable [phone] Encounter Details Date Type Department Care Team (Latest Contact Info) Description 10/03/2018 Abstract [facility] CONVERSIONS Dental, [...] [facility]ULT [facility]AL [address] [place] [address] Larry Hopper documented as of this encounter Visit Diagnoses Not on filedocumented in this encounter Care Teams Director E Learning Relationship Specialty Start Date End Date Payal Walker ANP 230 [place] [address] PCP - General Family Medicine 11/20/21 08/04/23 Neptali Palomo DMD 505 [place] [address] Dentist 05/18/24 documented as of this encounter
--- OUTSIDE RECORDS SUMMARY | 2025-03-15 15:57 | XMS_ITS | Encounter Summary ---
Author Organization [employer] Address 75 [facility] 7t [place] [address] Care Team Providers Care Granulating Blender Name Role Phone Neptali Palomo DMD Unavailable [phone] Reason for Visit * Reason Comments Med Refill Encounter Details Date Type Department Care Team (Late st Contact Info) Description 04/14/2024 Refill [facility] MEDICINE 230 [place], [place] [phone] Payal Walker, ANP 230 [place], [place] [phone] Type 2 diabetes mellitus with hyperlipidemia ([facility]/HCC) ([facility]) Social History Tobacco [...] Description 04/20/2025 2:15 PM EST Office Visit [facility] ADULT DENTAL [address] [place] [address] Larry Hopper documented as of this encounter Visit Diagnoses Diagnosis Type 2 diabetes mellitus with hyperlipidemia (HCC) documented in this encounter Additional Health Concerns Assessment Noted Time PHQ-9 Depression Total Score: 0 08/05/19 2:13 PM EDT documented as of this encounter Care Teams Granulating Blender Relationship Specialty Start Date End Date Neptali Palomo DMD 505 [place] [address] Dentist 05/18/24 documented as of this encounter
--- OUTSIDE RECORDS SUMMARY | 2025-03-15 15:57 | XMS_ITS | Encounter Summary ---
Author Organization [employer] Address 75 [facility] 7t [place] [address] Care Team Providers Care Dermatology Physician Name Role Phone Aaron Payal RUANO Primary Care Provider [phone] Neptali Palomo DMD Unavailable [phone] Reason for Visit * Reason Comments Med Refill Encounter Details Date Type Department Care Team (Late st Contact Info) Description 10/20/2022 Refill [facility] MEDICINE 230 [place], [place] [phone] [facility] 230 [place], [place] [phone] Social History Tobacco Use Types Packs/Day Years [...] [facility] ADULT D[facility]AL [address] [place] [address] Larry Hopper documented as of this encounter Visit Diagnoses Not on filedocumented in this encounter Additional Health Concerns Assessment Noted Time PHQ-9 Depression Total Score: 0 08/05/19 23 2:13 PM EDT documented as of this encounter Care Teams Dermatology Physician Relationship Specialty Start Date End Date Payal Walker ANP 230 [place] [address] PCP - General Family Medicine 11/20/21 08/04/23 Neptali Palomo DMD [address] [place] [address] Dentist 05/18/24 documented as of this encounter
--- OUTSIDE RECORDS SUMMARY | 2025-03-15 15:57 | XMS_ITS | Encounter Summary ---
Author Organization [employer] [facility] Address [address] [place] [address] 7 [place] [address] Care Team Providers Care Salvager Name Role Phone Payal Walker Primary Care Provider [phone] Neptali Palomo DMD Unavailable [phone] Encounter Details Date Type Department Care Team (Latest Contact Info) Description 02/12/2020 Abstract [facility] CONVERSIONS Dental, Provider, DDS Social History Tobacco [...] [facility] [address] [place] [address] Larry Hopper documented as of this encounter Visit Diagnoses Not on filedocumented in this encounter Care Teams Salvager Relationship Specialty Start Date End Date Payal Walker ANP 230 [place] [address] PCP - General Family Medicine 11/20/21 08/04/23 Neptali Palomo DMD 505 [place] [address] Dentist 05/18/24 documented as of this encounter
--- OUTSIDE RECORDS SUMMARY | 2025-03-15 15:57 | XMS_ITS | Encounter Summary ---
Author Organization [employer] Address 75 [facility] 7t [place] [address] Care Team Providers Care Magazine Worker Name Role Phone Neptali Palomo DMD Unavailable [phone] Reason for Visit * Reason Comments Med Refill Encounter Details Date Type Department Care Team (Late st Contact Info) Description 11/04/2023 Refill [facility] MEDICINE 230 [place], [place] [phone] Payal Walker, ANP 230 [place], [place] [phone] Type 2 diabetes mellitus with hyperlipidemia ([facility]/HCC) ([facility]) Social History Tobacco [...] 2:15 PM EST Office Visit [facility] CHC ADULT DENTAL [address] [place] [address] Larry Hopper documented as of this encounter Visit Diagnoses Diagnosis Type 2 diabetes mellitus with hyperlipidemia (HCC) documented in this encounter Additional Health Concerns Assessment Noted Time PHQ-9 Depression Total Score: 0 08/05/19 2:13 PM EDT documented as of this encounter Care Teams Magazine Worker Relationship Specialty Start Date End Date Neptali Palomo DMD 505 [place] [address] Dentist 05/18/24 documented as of this encounter
--- OUTSIDE RECORDS SUMMARY | 2025-03-15 15:57 | XMS_ITS | Encounter Summary ---
Author Organization [employer] Address 75 [facility] 7t [place] [address] Care Team Providers Care Machine Helper Name Role Phone Neptali Palomo DMD Unavailable [phone] Reason for Visit * Reason Comments Med Refill Encounter Details Date Type Department Care Team (Late st Contact Info) Description 01/28/2024 Refill [facility] MEDICINE 230 [place], [place] [phone] Payal Walker, ANP [address] [place], [place] [phone] Type 2 diabetes mellitus with hyperlipidemia ([facility]/HCC) ([facility]) Social History Tobacco Use Types [...] 2:15 PM EST Office Visit [facility] CHC ADULT DENTAL [address] [place] [address] Larry Hopper documented as of this encounter Visit Diagnoses Diagnosis Type 2 diabetes mellitus with hyperlipidemia (HCC) documented in this encounter Additional Health Concerns Assessment Noted Time PHQ-9 Depression Total Score: 0 08/05/19 2:13 PM EDT documented as of this encounter Care Teams Machine Helper Relationship Specialty Start Date End Date Neptali Palomo DMD 505 [place] [address] Dentist 05/18/24 documented as of this encounter
--- OUTSIDE RECORDS SUMMARY | 2025-03-15 15:57 | XMS_ITS | Encounter Summary ---
Author Organization [employer] Address 75 [facility] 7t [place] [address] Care Team Providers Care Fingerer Name Role Phone Walker Payal RUANO Primary Care Provider [phone] Neptali Palomo DMD Unavailable [phone] Reason for Visit * Reason Comments Med Refill Encounter Details Date Type Department Care Team ([facility] st Contact Info) Description 06/25/2023 Refill [facility] MEDICINE 230 [place], [place] [phone] Siena Greenwood MD [address] [place], [place] [phone] GERD without esophagitis Social History Tobacco Use [...] 2:15 PM EST Office Visit [facility] CHC ADULT DENTAL 505 [place] [address] Larry Hopper documented as of this encounter Visit Diagnoses Diagnosis GERD without esophagitis Esophageal reflux documented in this encounter Additional Health Concerns Assessment Noted Time PHQ-9 Depression Total Score: 0 08/05/19 2:13 PM EDT documented as of this encounter Care Teams Fingerer Relationship Specialty Start Date End Date Payal Walker ANP [address] [place] [address] PCP - General Family Medicine 11/20/21 08/04/23 Neptali Palomo DMD 505 [place] [address] Dentist 05/18/24 documented as of this encounter
--- OUTSIDE RECORDS SUMMARY | 2025-03-15 15:57 | XMS_ITS | Encounter Summary ---
Author Organization [employer] Address 75 [facility] 7t [place] [address] Care Team Providers Care Grocery Clerk Checking Name Role Phone Neptali Palomo DMD Unavailable [phone] Reason for Visit * Reason Comments Med Refill Encounter Details Date Type Department Care Team (Late st Contact Info) Description 01/28/2024 Refill [facility] MEDICINE 230 [place], [place] [phone] Payal Walker, ANP 230 [place], [place] [phone] Social History Tobacco Use Types Packs/Day Years [...] Visit [facility] ADULT DENTAL 505 [place] [address] Larry Hopper documented as of this encounter Visit Diagnoses Not on filedocumented in this encounter Additional Health Concerns Assessment Noted Time PHQ-9 Depression Total Score: 0 08/05/19 2:13 PM EDT documented as of this encounter Care Teams Grocery Clerk Checking Relationship Specialty Start Date End Date Neptali Palomo DMD 505 [place] [address] Dentist 05/18/24 documented as of this encounter
--- OUTSIDE RECORDS SUMMARY | 2025-03-15 15:57 | XMS_ITS | Clinical Summary ---
Author Organization [employer] Address 75 [facility] 7t [place] [address] Care Team Providers Care Personalization Specialist Name Role Phone Neptali Palomo DMD Unavailable [phone] Allergies Active Allergy Reactions Criticality Noted [...] 2 diabetes mellitus without complication, unspecified whether field reporter insulin use 1 each before breakfast, before lunch, and before evening meal. 1 kit 07/11/19 23 Active Continuous Blood Gluc Child Care Sitter (FreeStyle Agatha [address] [place]) deviceIndications: Type 2 diabetes mellitus with hyperlipidemia [...] 02/28/2024 Epigastric pain 02/28/2024 Stroke ([facility] 08/17/2022 Assessment & Plan (08/17/2022 6:42 PM [...] fasting and chem -referred to neurologist at [place] x stroke f up and to f CT ,MRI findings --unsure if actual aneurysm in CTA? 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 ----to continue care w neurologist -states is following w cardiology for valvular abnormality -from chart review hx of aortic valve calcification-pt states will schedule a f up visit w his cards at [facility] Pituitary microadenoma ([facility]) 08/17/2022 Assessment & Plan (08/17/2022 6:41 PM [...] penis 09/24/2015 Overview (04/16/2022): [facility] Elevated liver function tests 12/25/2014 Overview (04/16/2022): [...] [facility] AD[facility] [address] [place] [address] Larry Hopper Health Maintenance Due Date Last [...] AM EDT) Creatinine, Urine 89.78 mg/dL [facility] Microalbumin Urine 59.0 mg/L [facility] Microalbum Creatinine Ratio Ur 65.7 ug/mg cr [facility] Comment:Albumin/Creatinine R atio Reference Ranges: Normal: < 30 ug/mg creatinine Microalbuminuria: 30 - 300 ug/mg creatinineClinical Albuminuria: > 300 ug/mg creatinine 08/19/2022 9:03 AM EDT 08/19/2022 11:06 AM EDT us [facility] External Provider LAB URI NE ORDERABLES Final Result [facility] [address] [place] [phone] * Hemoglobin A1c (08/19/2022 9:03 AM EDT) Hemoglobin A1c 7.3 % [facility] Comment:Hemoglobin A1C Refer ence Range Adults: 4.8 - 6.0 % Non diabetic: < 6.0 % Goal: < 7.0 %Additional Action Suggested: > 8.0 %Note: Hemoglobin A1c results are invalid for patients with abnormal amounts of HbF. Blood transfusions may impact the HbA1c concentration in the patient sample. Estimated Average Glucose 163 mg/dL [facility] Comment:eAG = Estimated ave rage glucose which is %A1C expressed asaverage glucose, using the formula of the X0W-[id number] Glucose study (ADAG), Diabetes Care, Vol.31,#8,Oct. 2007 08/19/2022 9:03 AM EDT 08/19/2022 11:12 AM EDT us [facility] External Provider LAB BLO OD ORDERABLES Final Result [facility] [address] [place] [phone] * Lipid Panel, Standard (08/19/2022 9:03 AM EDT) Triglycerides 91 mg/dL [facility] Comment:Desirable Triglyceri de: less than 150 mg/dLBorderline High Triglyceride 150-199 mg/dLHigh Triglyceride: 200-499 mg/dLVery High Triglyceride: greater than or equal to 5OO mg/dL Cholesterol 186 mg/dL [facility] Comment:Desirable Cholestero l: less than 200 mg/dLBorderline High Cholesterol: 200-239 mg/dLHigh Cholesterol: greater than 239 mg/dL LDL Cholesterol Calculated 129 mg/dl [facility] Comment:Desirable LDL: less than 100 mg/dLNear Optimal/Above Optimal LDL: 110- 129 mg/dLBorderline High LDL: 130-159 mg/dLHigh LDL: 160-189 mg/dLVery High LDL: greater than or equal to 190 mg/dL HDL Cholesterol 39 mg/dL [facility] Comment:Desirable HDL: great er than 40 mg/dL Note: This HDL assay may give artificially low results in patients with liver disease. 08/19/2022 9:03 AM EDT 08/19/2022 11:12 AM EDT [facility] External Provider LAB BLO OD ORDERABLES Final Result [facility] [address] [place] [phone] [phone] * HEPATITIS C AB W/REFL TO [...] a test for HCV RNA (test code 39272) is suggested. For additional information please refer to http://education.Protonet/faq/SPK19a6 (This link is being provided for informational/ educational purposes only.) 07/16/2020 9:56 AM EDT Davida Webb BOTTOM CEMENTER HISTORICAL/NON ORDERABLE LABS Final Result Performing Organization Address City/[facility] Co de Phone Number [facility] [address] [place] [address], * Hm Colonoscopy (05/01/2016) Colonoscopy Normal Normal Narrative Mary Kate Emmanuel - 05/01/2016 Repeat in 10 years Historical Provider MD HEALTH MAINTENANCE Final Result from Last 3 Months or Most Recently Relevant to Health Maintenance Insurance [facility] MED[facility] DENTAL-[facility] MEDICAID [facility] ADULT Ari [place] Ari [place] Ari [place] Care Teams Personalization Specialist Relationship Specialty Start Date End Date Neptali Palomo DMD [address] [place] [address] Dentist 05/18/24
--- OUTSIDE RECORDS SUMMARY | 2025-03-15 15:57 | XMS_ITS | Encounter Summary ---
Author Organization [employer] Address 75 [facility] 7t [place] [address] Care Team Providers Care Vice President Of Talent Management Name Role Phone Walker Payal RUANO Primary Care Provider [phone] Neptali Palomo DMD Unavailable Encounter Details Date Type Department Care Team (Late st Contact Info) Description 02/16/2023 Abstract [facility] MEDICINE [address] [place], [place] [phone] Mary Kate Emmanuel Social History Tobacco Use [...] - [place] ADULT DENTAL [address] [place] [address] Larry Hopper documented as of this encounter [...] documented as of this encounter Care Teams Vice President Of Talent Management Relationship Specialty Start Date End Date Payal Walker ANP 230 [place] [address] PCP - General Family Medicine 11/20/21 08/04/23 Neptali Palomo DMD [address] [place] [address] Dentist 05/18/24 documented as of this encounter
== END 2025-03-15 12:46 | disposition home or self-care (01) ==
LOC: HO.ENCR 12:05
PROVIDERS: PCP Nurse Practitioner Family; Visit Provider Registered Nurse Diabetes Educator
DX: E11.8 Type 2 diabetes mellitus with unspecified complications (principal)

== ENCOUNTER → 2025-03-15 12:05 | Outpatient (BNVA) | payer OTHER, SELFPAY | PROVIDERS: PCP Nurse Practitioner Family; Visit Provider Registered Nurse Diabetes Educator | DX: E11.21 Type 2 diabetes mellitus with diabetic nephropathy (principal); R80.9 Proteinuria, unspecified; Z79.4 Long term (current) use of insulin; Z96.41 Presence of insulin pump (external) (internal); Z46.81 Encounter for fitting and adjustment of insulin pump | CPT/HCPCS: 99211 ==